=== PATIENT | male | born 1965 | race American Indian/Alaskan Native ===

== ENCOUNTER 2018-05-09 16:47 | Inpatient (IN) | payer MEDICAID ==
[2018-05-09] MEDS ORDERED: Albuterol-Ipratrop 3 mg / 0.5 (3 ml) UD IH STA (17:10)
[2018-05-09 17:18] LABS: ARTERIAL BLOOD GAS HCO3 27.3 mmol/L (21-28); ARTERIAL BLOOD GAS HEMOGLOBIN 9.1 g/dL (11.7-17.4); ARTERIAL BLOOD GAS O2 CAPACITY 13.4 mL/dl (16-24); ARTERIAL BLOOD GAS O2 CONTENT 13.4 ML/dl (15-23); ARTERIAL BLOOD GAS O2 SAT 99.9 % (95-98); ARTERIAL BLOOD GAS PCO2 84 mm/Hg (35-45); ARTERIAL BLOOD GAS TCO2 29.9 mmol.L (22-28)
[2018-05-09 17:21] LABS: VENOUS BLOOD GAS BASE EXCESS -3.1 mmol/L (0.0-2.0); VENOUS BLOOD GAS PO2 135 mm/Hg (30-55)
[2018-05-09 17:22] LABS: ARTERIAL BLOOD GAS PH 7.12 (7.35-7.45)
[2018-05-09 17:24] LABS: VENOUS BLOOD PH 7.12 (7.32-7.43)
[2018-05-09 17:35] LABS: BASO # 0.02 K/mm3 (0.0-2.0); BASO % 0.3 % (0.0-3.0); EOS % 0.1 % (1.5-5.0); GRAN # 3.7 (1.4-6.5); GRAN % 51.2 % (50.0-68.0); HEMOGLOBIN 9.6 g/dL (14.0-18.0); LYMPH # 2.7 (1.2-3.4); MEAN CELL VOLUME 72.5 fl (80.0-105.0); MEAN CORPUSCULAR HGB CONC 27.6 g/dl (31.0-37.0); MEAN PLATELET VOLUME 9.2 fl (7.0-11.0); MONO # 0.8 (0.1-0.6); MONO % 11.4 % (1.0-6.0); RBC 4.8 10^6/uL (3.5-6.1); RED CELL DISTRIBUTION WIDTH 22.3 % (11.5-14.5); WHITE BLOOD COUNT 7.2 10^3/ul (4.5-11.0)
[2018-05-09 17:37] LABS: INR 1.85; PARTIAL THROMBOPLASTIN TIME 30.9 Seconds (25.1-36.5); PROTHROMBIN TIME 21.4 SECONDS (9.4-12.5)
[2018-05-09 18:09] LABS: B-TYPE NATRIURETIC PEPTIDE 2220 pg/mL (0-450); TROPONIN I < 0.01 ng/mL
--- NOTE | 2018-05-09 18:11 | ED PDOC ---
Arrival/HPI - General Chief Complaint: Shortness Of Breath Time Seen by Provider: 05/09/18 16:59 - History of Present Illness Narrative History of Present Illness (Text): 05/09/18 17:03 A 52 year old male whose past medical history includes , presents to the emergency department via ALS with acute shortness of breath on CPAP and complaining of shortness of breath since yesterday. Patients reports patient has been noncompliant with medication and is not currently experiencing pain. Patient reports no recent travel and denies any pain. Patient denies any fever, chills, chest pain, nausea, vomiting, diarrhea, back pain, neck pain, headache, dizziness, or any other complaints. Time/Duration: 24 hours Symptom Onset: Gradual Activities at Onset: Light Context: Home Past Medical History - Provider Review Nursing Documentation Reviewed: Yes - Cardiac Hx Cardiac Disorders: Yes Hx Congestive Heart Failure: Yes - Pulmonary Hx Respiratory Disorders: Yes - Psychiatric Hx Substance Use: No - Surgical History Other/Comment: ABDOMINAL SURGERY Family/Social History - Physician Review Nursing Documentation Reviewed: Yes Family/Social History: Unknown Family HX Smoking Status: Unknown If Ever Smoked Hx Alcohol Use: No Hx Substance Use: No Allergies/Home Meds Allergies/Adverse Reactions: Allergies Unobtainable Allergy (Verified 05/09/18 16:59) Home Medications: Home Meds Medication Instructions Recorded Confirmed Albuterol Sulfate [Ventolin Hfa] 2 puff PO DAILY 05/09/18 05/09/18 Apixaban [Eliquis] 5 mg PO BID 05/09/18 05/09/18 Atorvastatin [Lipitor] 20 mg PO DAILY 05/09/18 05/09/18 Carvedilol [Coreg] 12.5 mg PO BID 05/09/18 05/09/18 Cyclobenzaprine [Flexeril] 5 mg PO BID PRN 05/09/18 05/09/18 Fluticasone Propionate [Flovent 2 puff PO PRN PRN 05/09/18 05/09/18 Hfa] Furosemide [Lasix] 40 mg PO TID 05/09/18 05/09/18 Lamivudine/Zidovudine [Combivir 1 tab PO BID 05/09/18 05/09/18 Tablet] Lisinopril [Zestril] 2.5 mg PO DAILY 05/09/18 05/09/18 Metformin HCl [Glucophage] 500 mg PO BID 05/09/18 05/09/18 Pantoprazole Sodium [Protonix] 40 mg PO HS 05/09/18 05/09/18 Spironolactone [Aldactone] 25 mg PO DAILY 05/09/18 05/09/18 diltiaZEM [Cardizem] 30 mg PO QID 05/09/18 05/09/18 Review of Systems - Physician Review All systems were reviewed & negative as marked: Yes - Review of Systems Constitutional: absent: Fevers, Night Sweats Respiratory: SOB Cardiovascular: absent: Chest Pain Gastrointestinal: absent: Diarrhea, Nausea, Vomiting Musculoskeletal: absent: Back Pain, Neck Pain Neurological: absent: Headache, Dizziness Physical Exam Vital Signs Reviewed: Yes Vital Signs Temp Pulse Resp BP Pulse Ox 05/09/18 20:00 77 16 141/66 100 05/09/18 18:31 86 18 110/59 L 100 05/09/18 16:51 111/69 05/09/18 16:50 24 05/09/18 16:47 98.1 F 86 24 111/69 100 Temperature: Afebrile Blood Pressure: Normal Pulse: Regular Respiratory Rate: Normal Appearance: Positive for: Well-Appearing, Non-Toxic, Comfortable Pain Distress: None Mental Status: Positive for: Alert and Oriented X 3 - Systems Exam Head: Present: Atraumatic, Normocephalic, Swelling (face is swollen). No: Tenderness, Contusion, Ecchymosis, Abrasion, Laceration, Other Pupils: Present: PERRL Extroacular Muscles: Present: EOMI Conjunctiva: Present: Normal Mouth: Present: Moist Mucous Membranes Neck: Present: Normal Range of Motion Respiratory/Chest: Present: Wheezes (fine expiratory wheezing ), Rales. No: Clear to Auscultation, Good Air Exchange, Respiratory Distress, Accessory Muscle Use, Decreased Breath Sounds, Retracting, Rhonchi, Tachypneic, Tender to Palpation Cardiovascular: Present: Regular Rate and Rhythm, Normal S1, S2. No: Murmurs Abdomen: Present: Other (soft abdomen. +bowel sounds, +pitting edema to abd). No: Tenderness, Distention, Normal Bowel Sounds, Peritoneal Signs, Rebound, Guarding, McBurney's Point Tender, Rovsing's Sign Present, Hernias, Feeding Tubes, Ostomy Tubes, Mass/Organomegaly, Scars Back: Present: Normal Inspection Upper Extremity: Present: Normal Inspection. No: Cyanosis, Edema Lower Extremity: Present: Normal Inspection. No: Edema Neurological: Present: GCS=15, CN II-XII Intact, Speech Normal Skin: Present: Warm, Dry, Normal Color. No: Rashes Psychiatric: Present: Alert, Oriented x 3, Normal Insight, Normal Concentration Medical Decision Making ED Course and Treatment: 05/09/18 17:20 Impression: 52 year old male presenting to the emergency room complaining of shortness of breath. Plan: -- Venous blood gas -- EKG -- Labs -- Chest X-ray -- Duoneb -- Lasix -- Solu-medrol -- Blood culture stat -- Urine culture stat -- BIPAP/CPAP setting -- Urinalysis -- Reassess and disposition Prior Visits: Notes and results from previous visits were reviewed. Progress Notes: 05/09/18 17:40 EKG reviewed by me, shows NSR at 87 bpm with left axis deviation and left atrial enlargement. 05/09/18 18:00 Cased discussed with Strategic Planning Specialist who agrees with ED management plan to admit patient to ICU, place on BIPAP. Upon reassessment, patient's condition is slowly improving. - Lab Interpretations Lab Results: 05/09/18 17:00 05/09/18 19:39 Lab Results 05/09/18 19:39: Iron 10 L, TIBC 171 L, % Saturation 6 L 05/09/18 19:39: Alcohol, Quantitative < 10 05/09/18 19:39: Sodium 144, Chloride 108 H, Potassium 4.7, Carbon Dioxide 25, Anion Gap 15, BUN 18, Creatinine 0.7 L, Est GFR ( Amer) > 60, Est GFR ( Non-Af Amer) > 60, Random Glucose 125 H, Calcium 8.8, Magnesium 1.7, Total Bilirubin 1.0, AST 36, ALT 16, Alkaline Phosphatase 305 H, Lactate Dehydrogenase 558, Total Creatine Kinase 89, Troponin I < 0.01, NT-Pro-B Natriuret Pep 2220 H, Total Protein 7.2, Albumin 3.3, Globulin 3.9, Albumin/ Globulin Ratio 0.8 L 05/09/18 19:37: pO2 153 H, VBG pH 7.27 L, VBG pCO2 57.0, VBG HCO3 26.2, VBG Total CO2 27.9, VBG O2 Sat (Calc) 99.3 H, VBG Base Excess -1.7 L, VBG Potassium 4.8, Sodium 141.0, Chloride 109.0 H, Glucose 126 H, Lactate 1.7, FiO2 21.0, Venous Blood Potassium 4.8 05/09/18 18:36: pCO2 59 H, pO2 129.0 H, HCO3 24.7, ABG pH 7.23 L, ABG Total CO2 26.5, ABG O2 Saturation 99.1 H, ABG O2 Content 12.2 L, ABG Base Excess -3.1 L, ABG Hemoglobin 8.9 L, ABG Carboxyhemoglobin 3.2 H, POC ABG HHb (Measured) 0.9, ABG Methemoglobin 0.6, ABG O2 Capacity 12.3 L, Hgb O2 Saturation 95.3, FiO2 50.0 05/09/18 17:00: Retic Count 2.30 H 05/09/18 17:00: pCO2 84 H*, pO2 385.0 H, HCO3 27.3, ABG pH 7.12 L*, ABG Total CO2 29.9 H, ABG O2 Saturation 99.9 H, ABG O2 Content 13.4 L, ABG Base Excess - 2.9 L, ABG Hemoglobin 9.1 L, ABG Carboxyhemoglobin 3.4 H, POC ABG HHb (Measured ) 0.1, ABG Methemoglobin 0.2, ABG O2 Capacity 13.4 L, Hgb O2 Saturation 96.3, FiO2 100.0 05/09/18 17:00: pO2 135 H, VBG pH 7.12 L*, VBG pCO2 88.0 H*, VBG HCO3 28.6 H, VBG Total CO2 31.3 H, VBG O2 Sat (Calc) 99.0 H, VBG Base Excess -3.1 L, VBG Potassium 4.8, Sodium 141.0, Chloride 107.0, Glucose 123 H, Lactate 2.0, FiO2 21.0, Venous Blood Potassium 4.8 05/09/18 17:00: PT 21.4 H, INR 1.85, APTT 30.9 05/09/18 17:00: WBC 7.2, RBC 4.80, Hgb 9.6 L, Hct 34.8 L, MCV 72.5 L, MCH 20.0 L , MCHC 27.6 L, RDW 22.3 H, Plt Count 352, MPV 9.2, Gran % 51.2, Lymph % (Auto) 37.0 H, [place] % (Auto) 11.4 H, Eos % (Auto) 0.1 L, Baso % (Auto) 0.3, Gran # 3.70 , Lymph # (Auto) 2.7, [place] # (Auto) 0.8 H, Eos # (Auto) 0.0, Baso # (Auto) 0.02 - RAD Interpretation Radiology Orders: 05/09/18 17:11 CHEST PORTABLE [RAD] Stat - Medication Orders Current Medication Orders: Albuterol/Ipratropium (Duoneb 3 Mg/0.5 Mg (3 Ml) Ud) 3 ml IH [id number] TRAVIS Dextrose (Dextrose 50% Inj) 0 ml IV STAT PRN; Protocol PRN Reason: Hypoglycemia Protocol Furosemide (Lasix) 60 mg IVP Q12 TRAVIS Dextrose (Dextrose 5% In Water 1000 Ml) 1,000 mls @ 0 mls/hr IV .Q0M PRN; Protocol; Per Protocol PRN Reason: Hypoglycemia Protocol Insulin Human Regular (Humulin R) 0 units SC Q6H TRAVIS PRN Reason: Protocol Last Admin: 05/09/18 21:29 Dose: Not Given Non-Admin Reason: Blood Sugar Parameter Discontinued Medications Albuterol/Ipratropium (Duoneb 3 Mg/0.5 Mg (3 Ml) Ud) 3 ml IH STAT STA Stop: 05/09/18 17:11 Last Admin: 05/09/18 18:08 Dose: 3 ml Furosemide (Lasix) 60 mg IVP STAT STA Stop: 05/09/18 17:11 Last Admin: 05/09/18 16:51 Dose: 60 mg MAR Blood Pressure Document 05/09/18 16:51 LA (Rec: 05/09/18 18:17 LA [id number]) Blood Pressure Blood Pressure (100/60-150/90) 111/69 IVP Administration Document 05/09/18 16:51 LA (Rec: 05/09/18 18:17 LA [id number]) Charges for Administration # of IVP Administrations 1 Furosemide (Lasix) 60 mg IVP Q12 TRAVIS Furosemide (Lasix) 40 mg IVP STAT STA Stop: 05/09/18 22:26 Methylprednisolone (Solu-Medrol) 125 mg IVP STAT STA Stop: 05/09/18 17:11 Last Admin: 05/09/18 18:08 Dose: 125 mg IVP Administration Document 05/09/18 18:08 LA (Rec: 05/09/18 18:08 LA [id number]) Charges for Administration # of IVP Administrations 1 - Scribe Statement The provider has reviewed the documentation as recorded by the Ángelaibarianne Schulte All medical record entries made by the Ángelaibe were at my direction and personally dictated by me. I have reviewed the chart and agree that the record accurately reflects my personal performance of the history, physical exam, medical decision making, and the department course for this patient. I have also personally directed, reviewed, and agree with the discharge instructions and disposition. Disposition/Present on Arrival - Present on Arrival Any Indicators Present on Arrival: No History of DVT/PE: No History of Uncontrolled Diabetes: No Urinary Catheter: No History of Decub. Ulcer: No History Surgical Site Infection Following: None - Disposition Have Diagnosis and Disposition been Completed?: Yes Diagnosis: CHF exacerbation, Respiratory failure Disposition: HOSPITALIZED Disposition Time: 17:45 Patient Plan: ICU Condition: CRITICAL
[2018-05-09 18:38] LABS: ARTERIAL BLOOD GAS HCO3 24.7 mmol/L (21-28); ARTERIAL BLOOD GAS HEMOGLOBIN 8.9 g/dL (11.7-17.4); ARTERIAL BLOOD GAS O2 CAPACITY 12.3 mL/dl (16-24); ARTERIAL BLOOD GAS O2 CONTENT 12.2 ML/dl (15-23); ARTERIAL BLOOD GAS O2 SAT 99.1 % (95-98); ARTERIAL BLOOD GAS PCO2 59 mm/Hg (35-45); ARTERIAL BLOOD GAS PH 7.23 (7.35-7.45); ARTERIAL BLOOD GAS TCO2 26.5 mmol.L (22-28)
--- NOTE | 2018-05-09 19:36 | CARD ---
APPROVED REPORT Date of service: 05/09/2018 EKG Measurement Heart [id number] <Conclusion> Sinus rhythm with occasional APCs and PVCs RBBB Low Voltage Possible Lateral infarct, age undetermined Inferior-posterior infarct, age undetermined Abnormal ECG
[2018-05-09 20:02] LABS: VENOUS BLOOD GAS BASE EXCESS -1.7 mmol/L (0.0-2.0); VENOUS BLOOD GAS PO2 153 mm/Hg (30-55); VENOUS BLOOD PH 7.27 (7.32-7.43)
[2018-05-09] MEDS ORDERED: Dextrose 50% SYRINGE Inj (50 ml) IV PRN (20:21)
[2018-05-09 20:46] LABS: ALB/GLOB RATIO 0.8 (1.1-1.8); ALBUMIN 3.3 g/dL (3.0-4.8); ALT/SGPT 16 U/L (7-56); AST/SGOT 36 U/L (17-59); BLOOD UREA NITROGEN 18 mg/dL (7-21); CALCIUM 8.8 mg/dL (8.4-10.5); GFR NON-AFRICAN AMERICAN > 60
[2018-05-09 20:55] LABS: ARTERIAL BLOOD GAS HCO3 24.9 mmol/L (21-28); ARTERIAL BLOOD GAS HEMOGLOBIN 8.8 g/dL (11.7-17.4); ARTERIAL BLOOD GAS O2 CAPACITY 12.3 mL/dl (16-24); ARTERIAL BLOOD GAS O2 CONTENT 12.2 ML/dl (15-23); ARTERIAL BLOOD GAS O2 SAT 99.5 % (95-98); ARTERIAL BLOOD GAS PCO2 58 mm/Hg (35-45); ARTERIAL BLOOD GAS PH 7.24 (7.35-7.45); ARTERIAL BLOOD GAS TCO2 26.7 mmol.L (22-28)
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
[2018-05-09] MEDS: Insulin Regular 1 UNITS/0.01 ML ML SC SCH (21:29)
[2018-05-09 22:26] LABS: TOTAL IRON BINDING CAPACITY 171 ug/dL (261-462)
[2018-05-09 22:31] LABS: IRON 10 ug/dL (45-180)
[2018-05-09 22:32] LABS: % IRON SATURATION 6 % (20-55)
[2018-05-10] MEDS: Albuterol-Ipratrop 3 mg / 0.5 (3 ml) UD IH SCH ×4 (01:30→19:46)
[2018-05-10] MEDS: Insulin Regular 1 UNITS/0.01 ML ML SC SCH ×4 (02:43→20:40)
[2018-05-10 05:49] LABS: ARTERIAL BLOOD GAS HCO3 25.6 mmol/L (21-28); ARTERIAL BLOOD GAS HEMOGLOBIN 9.1 g/dL (11.7-17.4); ARTERIAL BLOOD GAS O2 CAPACITY 12.7 mL/dl (16-24); ARTERIAL BLOOD GAS O2 CONTENT 12.6 ML/dl (15-23); ARTERIAL BLOOD GAS PCO2 57 mm/Hg (35-45); ARTERIAL BLOOD GAS PH 7.26 (7.35-7.45); ARTERIAL BLOOD GAS TCO2 27.3 mmol.L (22-28)
[2018-05-10 07:14] LABS: HEMOGLOBIN 8.8 g/dL (14.0-18.0); MEAN CELL VOLUME 73.4 fl (80.0-105.0); MEAN CORPUSCULAR HEMOGLOBIN 19.5 pg (25.0-35.0); MEAN CORPUSCULAR HGB CONC 26.6 g/dl (31.0-37.0); MEAN PLATELET VOLUME 9.4 fl (7.0-11.0); RBC 4.51 10^6/uL (3.5-6.1); WHITE BLOOD COUNT 11.6 10^3/ul (4.5-11.0)
[2018-05-10 07:34] LABS: LDL CHOLESTEROL 44 mg/dL (0-129)
[2018-05-10 07:44] LABS: ALB/GLOB RATIO 0.8 (1.1-1.8); ALBUMIN 3.1 g/dL (3.0-4.8); ALT/SGPT 26 U/L (7-56); AST/SGOT 33 U/L (17-59); BLOOD UREA NITROGEN 21 mg/dL (7-21); CALCIUM 8.7 mg/dL (8.4-10.5); GFR NON-AFRICAN AMERICAN > 60; HDL CHOLESTEROL 24 mg/dL (29-60)
--- NOTE | 2018-05-10 08:33 | RAD ---
Date of service: 05/10/2018 HISTORY: CHF exacerbation COMPARISON: 05/09/2018. FINDINGS: LUNGS: There are low lung volumes. There is worsening pulmonary venous congestion. PLEURA: No significant pleural effusion identified, no pneumothorax apparent. CARDIOVASCULAR: There is persistent severe cardiomegaly OSSEOUS STRUCTURES: No significant abnormalities. VISUALIZED UPPER ABDOMEN: Normal. OTHER FINDINGS: None. IMPRESSION: Limited portable examination. Worsening pulmonary venous congestion. Persistent severe cardiomegaly.
--- NOTE | 2018-05-10 08:37 | RAD ---
Date of service: 05/09/2018 HISTORY: CHF COMPARISON: No prior. FINDINGS: LUNGS: There are low lung volumes. Limited portable examination, there is question of right lower lobe airspace disease. PLEURA: Suspect small right pleural effusion, no pneumothorax apparent. CARDIOVASCULAR: Moderate cardiomegaly. OSSEOUS STRUCTURES: No significant abnormalities. VISUALIZED UPPER ABDOMEN: Normal. OTHER FINDINGS: None. IMPRESSION: Limited portable examination. Question of right lower lobe airspace disease and small right pleural effusion. Repeat PA and lateral radiographs are recommended for definitive evaluation.
--- NOTE | 2018-05-10 09:40 | CP.CCUPN ---
<Rc Wong - Last Filed: 05/10/18 09:36> CCU Subjective - Physician Review Events Since Last Encounter (Free Text): Rc Wong, PGY-1 ICU Progress Note Patient seen and examined at bedside this morning. No acute events overnight. Taken off bipap this AM, tolerating well. Arousable but drowsy. Started steriods. Will transfer to tele. Patient admits to SOB, denies CP, abdominal pain, headaches, fevers, swelling. ROS noted here, otherwise unremarkable. CCU Objective - Vital Signs / Intake & Output Vital Signs (Last 4 hours): Vital Signs Pulse BP 05/10/18 09:02 109/63 05/10/18 07:34 90 05/10/18 06:00 90 Intake and Output (Last 8hrs): Intake & Output 05/09/18 05/10/18 05/10/18 22:59 06:59 14:59 Output Total 1700 Balance -1700 Weight 318 lb 9.6 oz Output: Urine 1700 Urethral (Lugo) 1700 Other: Voiding Method Indwelling Catheter - Physical Exam Head: Positive for: Atraumatic, Normocephalic Pupils: Positive for: PERRL Extroacular Muscles: Positive for: EOMI Conjunctiva: Positive for: Normal Mouth: Positive for: Moist Mucous Membranes Neck: Positive for: Normal Range of Motion Respiratory/Chest: Positive for: Wheezes (diffuse wheezing present in upper and llower B/L lung cano). Negative for: Clear to Auscultation, Respiratory Distress Cardiovascular: Positive for: Regular Rate and Rhythm, Normal S1, S2. Negative for: Murmurs Abdomen: Positive for: Other (abdomen is firm, bowel sounds present in all 4 quadrants. Anasarca present with pelvic/scrotal swelling). Negative for: Peritoneal Signs, Rebound, Guarding Back: Positive for: Normal Inspection Upper Extremity: Positive for: NORMAL PULSES, Other (skin is dry). Negative for : Cyanosis Lower Extremity: Positive for: Other (skin is dry and scaly). Negative for: Edema Neurological: Positive for: Other (arousable but drowsy) Skin: Positive for: Dry. Negative for: Rashes Psychiatric: Positive for: Lethargic - Medications Active Medications: Active Medications Generic Name Dose Route Start Last Admin Trade Name Freq PRN Reason Stop Dose Admin Albuterol/Ipratropium 3 ml 05/10/18 02:00 05/10/18 07:30 Duoneb 3 Mg/0.5 Mg (3 Ml) Ud IH 3 ml [id number] TRAVIS Administration Aspirin 81 mg 05/10/18 10:00 05/10/18 09:02 Aspirin Chewable PO 81 mg DAILY TRAVIS Administration Dextrose 0 ml 05/09/18 20:21 Dextrose 50% Inj IV STAT PRN Hypoglycemia Protocol Protocol Furosemide 60 mg 05/10/18 10:00 05/10/18 09:02 Lasix IVP 60 mg Q12 TRAVIS Administration Heparin Sodium (Porcine) 5,000 units 05/10/18 10:00 Heparin SC Q12 TRAVIS Protocol Insulin Human Regular 0 units 05/09/18 20:30 05/10/18 08:20 Humulin R SC Not Given Q6H TRAVIS Protocol Methylprednisolone 60 mg 05/10/18 10:00 05/10/18 09:00 Solu-Medrol IVP Not Given Q12 TRAVIS Pantoprazole Sodium 40 mg 05/10/18 10:00 Protonix Inj IVP DAILY TRAVIS - Patient Studies Lab Studies: Lab Studies 05/10/18 05/10/18 05/10/18 Range/Units 08:00 06:00 06:00 WBC 11.6 H D (4.5-11.0) 10^3/ul RBC 4.51 (3.5-6.1) 10^6/uL Hgb 8.8 L (14.0-18.0) g/dL Hct 33.1 L (42.0-52.0) % MCV 73.4 L (80.0-105.0) fl MCH 19.5 L (25.0-35.0) pg MCHC 26.6 L (31.0-37.0) g/dl RDW 22.0 H (11.5-14.5) % Plt Count 324 (120.0-450.0) 10^3/uL MPV 9.4 (7.0-11.0) fl pCO2 (35-45) mm/Hg pO2 (80-100) mm/Hg HCO3 (21-28) mmol/L ABG pH (7.35-7.45) ABG Total CO2 (22-28) mmol.L ABG O2 Saturation (95-98) % ABG O2 Content (15-23) ML/dl ABG Base Excess (-2.0-3.0) mmol/L ABG Hemoglobin (11.7-17.4) g/dL ABG Carboxyhemoglobin (0.5-1.5) % POC ABG HHb (Measured) (0-5) % ABG Methemoglobin (0.0-3.0) % ABG O2 Capacity (16-24) mL/dl Hgb O2 Saturation (95.0-98.0) % FiO2 % Sodium 145 (132-148) mmol/L Potassium 4.5 (3.6-5.0) mmol/L Chloride 107 (98-107) mmol/L Carbon Dioxide 26 (21-33) mmol/L Anion Gap 16 (10-20) BUN 21 (7-21) mg/dL Creatinine 0.7 L (0.8-1.5) mg/dl Est GFR ( Amer) > 60 Est GFR (Non-Af Amer) > 60 POC Glucose (mg/dL) 139 H (65-110) mg/dL Random Glucose 124 H (70-110) mg/dL Calcium 8.7 (8.4-10.5) mg/dL Phosphorus 5.5 H (2.5-4.5) mg/dL Magnesium 1.7 (1.7-2.2) mg/dL Total Bilirubin 0.8 (0.2-1.3) mg/dL AST 33 (17-59) U/L ALT 26 (7-56) U/L Alkaline Phosphatase 265 H (38-126) U/L Total Protein 6.8 (5.8-8.3) g/dL Albumin 3.1 (3.0-4.8) g/dL Globulin 3.7 gm/dL Albumin/Globulin Ratio 0.8 L (1.1-1.8) Triglycerides 66 (35-160) mg/dL Cholesterol 86 L (130-200) mg/dL LDL Cholesterol Direct 44 (0-129) mg/dL HDL Cholesterol 24 L (29-60) mg/dL 05/10/18 05/10/18 05/09/18 Range/Units 05:40 02:41 21:17 WBC (4.5-11.0) 10^3/ul RBC (3.5-6.1) 10^6/uL Hgb (14.0-18.0) g/dL Hct (42.0-52.0) % MCV (80.0-105.0) fl MCH (25.0-35.0) pg MCHC (31.0-37.0) g/dl RDW (11.5-14.5) % Plt Count (120.0-450.0) 10^3/uL MPV (7.0-11.0) fl pCO2 57 H (35-45) mm/Hg pO2 115.0 H (80-100) mm/Hg HCO3 25.6 (21-28) mmol/L ABG pH 7.26 L (7.35-7.45) ABG Total CO2 27.3 (22-28) mmol.L ABG O2 Saturation 99.0 H (95-98) % ABG O2 Content 12.6 L (15-23) ML/dl ABG Base Excess -1.8 (-2.0-3.0) mmol/L ABG Hemoglobin 9.1 L (11.7-17.4) g/dL ABG Carboxyhemoglobin 2.0 H (0.5-1.5) % POC ABG HHb (Measured) 1.0 (0-5) % ABG Methemoglobin 0.6 (0.0-3.0) % ABG O2 Capacity 12.7 L (16-24) mL/dl Hgb O2 Saturation 96.4 (95.0-98.0) % FiO2 50.0 % Sodium (132-148) mmol/L Potassium (3.6-5.0) mmol/L Chloride (98-107) mmol/L Carbon Dioxide (21-33) mmol/L Anion Gap (10-20) BUN (7-21) mg/dL Creatinine (0.8-1.5) mg/dl Est GFR ( Amer) Est GFR (Non-Af Amer) POC Glucose (mg/dL) 166 H 130 H (65-110) mg/dL Random Glucose (70-110) mg/dL Calcium (8.4-10.5) mg/dL Phosphorus (2.5-4.5) mg/dL Magnesium (1.7-2.2) mg/dL Total Bilirubin (0.2-1.3) mg/dL AST (17-59) U/L ALT (7-56) U/L Alkaline Phosphatase (38-126) U/L Total Protein (5.8-8.3) g/dL Albumin (3.0-4.8) g/dL Globulin gm/dL Albumin/Globulin Ratio (1.1-1.8) Triglycerides (35-160) mg/dL Cholesterol (130-200) mg/dL LDL Cholesterol Direct (0-129) mg/dL HDL Cholesterol (29-60) mg/dL 05/09/18 Range/Units 20:52 WBC (4.5-11.0) 10^3/ul RBC (3.5-6.1) 10^6/uL Hgb (14.0-18.0) g/dL Hct (42.0-52.0) % MCV (80.0-105.0) fl MCH (25.0-35.0) pg MCHC (31.0-37.0) g/dl RDW (11.5-14.5) % Plt Count (120.0-450.0) 10^3/uL MPV (7.0-11.0) fl pCO2 58 H (35-45) mm/Hg pO2 137.0 H (80-100) mm/Hg HCO3 24.9 (21-28) mmol/L ABG pH 7.24 L (7.35-7.45) ABG Total CO2 26.7 (22-28) mmol.L ABG O2 Saturation 99.5 H (95-98) % ABG O2 Content 12.2 L (15-23) ML/dl ABG Base Excess -2.8 L (-2.0-3.0) mmol/L ABG Hemoglobin 8.8 L (11.7-17.4) g/dL ABG Carboxyhemoglobin 2.8 H (0.5-1.5) % POC ABG HHb (Measured) 0.5 (0-5) % ABG Methemoglobin 0.6 (0.0-3.0) % ABG O2 Capacity 12.3 L (16-24) mL/dl Hgb O2 Saturation 96.2 (95.0-98.0) % FiO2 50.0 % Sodium (132-148) mmol/L Potassium (3.6-5.0) mmol/L Chloride (98-107) mmol/L Carbon Dioxide (21-33) mmol/L Anion Gap (10-20) BUN (7-21) mg/dL Creatinine (0.8-1.5) mg/dl Est GFR ( Amer) Est GFR (Non-Af Amer) POC Glucose (mg/dL) (65-110) mg/dL Random Glucose (70-110) mg/dL Calcium (8.4-10.5) mg/dL Phosphorus (2.5-4.5) mg/dL Magnesium (1.7-2.2) mg/dL Total Bilirubin (0.2-1.3) mg/dL AST (17-59) U/L ALT (7-56) U/L Alkaline Phosphatase (38-126) U/L Total Protein (5.8-8.3) g/dL Albumin (3.0-4.8) g/dL Globulin gm/dL Albumin/Globulin Ratio (1.1-1.8) Triglycerides (35-160) mg/dL Cholesterol (130-200) mg/dL LDL Cholesterol Direct (0-129) mg/dL HDL Cholesterol (29-60) mg/dL Laboratory Results - last 24 hr 05/09/18 05/09/18 05/10/18 20:52 21:17 02:41 WBC RBC Hgb Hct MCV MCH MCHC RDW Plt Count MPV pCO2 58 H pO2 137.0 H HCO3 24.9 ABG pH 7.24 L ABG Total CO2 26.7 ABG O2 Saturation 99.5 H ABG O2 Content 12.2 L ABG Base Excess -2.8 L ABG Hemoglobin 8.8 L ABG Carboxyhemoglobin 2.8 H POC ABG HHb (Measured) 0.5 ABG Methemoglobin 0.6 ABG O2 Capacity 12.3 L Hgb O2 Saturation 96.2 FiO2 50.0 Sodium Potassium Chloride Carbon Dioxide Anion Gap BUN Creatinine Est GFR ( Amer) Est GFR (Non-Af Amer) POC Glucose (mg/dL) 130 H 166 H Random Glucose Calcium Phosphorus Magnesium Total Bilirubin AST ALT Alkaline Phosphatase Total Protein Albumin Globulin Albumin/Globulin Ratio Triglycerides Cholesterol LDL Cholesterol Direct HDL Cholesterol 05/10/18 05/10/18 05/10/18 05:40 06:00 06:00 WBC 11.6 H D RBC 4.51 Hgb 8.8 L Hct 33.1 L MCV 73.4 L MCH 19.5 L MCHC 26.6 L RDW 22.0 H Plt Count 324 MPV 9.4 pCO2 57 H pO2 115.0 H HCO3 25.6 ABG pH 7.26 L ABG Total CO2 27.3 ABG O2 Saturation 99.0 H ABG O2 Content 12.6 L ABG Base Excess -1.8 ABG Hemoglobin 9.1 L ABG Carboxyhemoglobin 2.0 H POC ABG HHb (Measured) 1.0 ABG Methemoglobin 0.6 ABG O2 Capacity 12.7 L Hgb O2 Saturation 96.4 FiO2 50.0 Sodium 145 Potassium 4.5 Chloride 107 Carbon Dioxide 26 Anion Gap 16 BUN 21 Creatinine 0.7 L Est GFR ( Amer) > 60 Est GFR (Non-Af Amer) > 60 POC Glucose (mg/dL) Random Glucose 124 H Calcium 8.7 Phosphorus 5.5 H Magnesium 1.7 Total Bilirubin 0.8 AST 33 ALT 26 Alkaline Phosphatase 265 H Total Protein 6.8 Albumin 3.1 Globulin 3.7 Albumin/Globulin Ratio 0.8 L Triglycerides 66 Cholesterol 86 L LDL Cholesterol Direct 44 HDL Cholesterol 24 L 05/10/18 08:00 WBC RBC Hgb Hct MCV MCH MCHC RDW Plt Count MPV pCO2 pO2 HCO3 ABG pH ABG Total CO2 ABG O2 Saturation ABG O2 Content ABG Base Excess ABG Hemoglobin ABG Carboxyhemoglobin POC ABG HHb (Measured) ABG Methemoglobin ABG O2 Capacity Hgb O2 Saturation FiO2 Sodium Potassium Chloride Carbon Dioxide Anion Gap BUN Creatinine Est GFR ( Amer) Est GFR (Non-Af Amer) POC Glucose (mg/dL) 139 H Random Glucose Calcium Phosphorus Magnesium Total Bilirubin AST ALT Alkaline Phosphatase Total Protein Albumin Globulin Albumin/Globulin Ratio Triglycerides Cholesterol LDL Cholesterol Direct HDL Cholesterol EKG/Cardiology Studies: Cardiology / EKG Studies 05/10/18 07:00 EKG [ELECTROCARDIOGRAM] Routine Comment: Reason For Exam: arrythmia? Fingerstick Blood Sugar Results: 139 Critical Care Progress Note - Nutrition Nutrition: Nutrition Category Date Time Status Heart Healthy Diet [DIET] Diets 05/10/18 Breakfast Active Assessment/Plan - Assessment and Plan (Free Text) Assessment: This is a 52 year old male with PMH of COPD, DM2, CHF with last EF in 12/2017 of 30%, CAD with stents and HIV presenting to ICU for management of COPD exacerbation. ABG shows CO2 retention indicating likely COPD vs CHF exacerbation. Will transfer to tele today. Plan: Neuro: -maintain normothermia -AAO x3, moving extremities spontaneously past midline Cardio: -maintain MAP>65 -echo pending today -Cardio on consult, Dr. Syed Lungs: -SaO2 >90% -supplementary O2 PRN -duonebs, solumedrol 60mg IV q12 -CXR today shows persistent severe cardiomegaly. Worsening pulmonary venous congestion Renal: -maintain euvolemia -avoid nephrotoxic agents, hypochloremia -replace electrolytes as needed -ABG today reads pH/pO2/pCO2/bicarb of 7.26/115/57/25.6 indicating improving respiratory acidosis from admission ABG of pH/CO2/bicarb of 7.12/84/27.3 Heme: -DVT ppx with heparin Endo: -maintain euglycemia ID: -WBC is today is 11.6, afebrile. No concern for infectious etiology at this time -blood culture, urine culture, MRSA screen pending -ID on consult, Dr Sahu, for HIV status -GI: -GI prophylaxis with protonix <Dago Eduardo - Last Filed: 05/10/18 12:17> CCU Objective - Vital Signs / Intake & Output Vital Signs (Last 4 hours): Vital Signs Pulse Resp BP Pulse Ox 05/10/18 11:00 93 H 17 93 L 05/10/18 10:01 96 H 21 109/70 96 05/10/18 10:00 97 H 21 96 05/10/18 09:02 109/63 05/10/18 09:01 95 H 23 117/66 93 L 05/10/18 09:00 95 H 20 95 Intake and Output (Last 8hrs): Intake & Output 05/09/18 05/10/18 05/10/18 22:59 06:59 14:59 Output Total 1700 Balance -1700 Weight 318 lb 9.6 oz Output: Urine 1700 Urethral (Lugo) 1700 Other: Voiding Method Indwelling Catheter - Medications Active Medications: Active Medications Generic Name Dose Route Start Last Admin Trade Name Freq PRN Reason Stop Dose Admin Albuterol/Ipratropium 3 ml 05/10/18 02:00 05/10/18 07:30 Duoneb 3 Mg/0.5 Mg (3 Ml) Ud IH 3 ml [id number] TRAVIS Administration Aspirin 81 mg 05/10/18 10:00 05/10/18 09:02 Aspirin Chewable PO 81 mg DAILY TRAVIS Administration Dextrose 0 ml 05/09/18 20:21 Dextrose 50% Inj IV STAT PRN Hypoglycemia Protocol Protocol Furosemide 60 mg 05/10/18 10:00 05/10/18 09:02 Lasix IVP 60 mg Q12 TRAVIS Administration Heparin Sodium (Porcine) 5,000 units 05/10/18 10:00 Heparin SC Q12 TRAVIS Protocol Insulin Human Regular 0 units 05/09/18 20:30 05/10/18 08:20 Humulin R SC Not Given Q6H TRAVIS Protocol Methylprednisolone 60 mg 05/10/18 10:00 05/10/18 09:00 Solu-Medrol IVP Not Given Q12 TRAVIS Pantoprazole Sodium 40 mg 05/10/18 10:00 Protonix Inj IVP DAILY TRAVIS - Patient Studies Lab Studies: Lab Studies 05/10/18 05/10/18 05/10/18 Range/Units 11:40 10:30 10:30 WBC (4.5-11.0) 10^3/ul RBC (3.5-6.1) 10^6/uL Hgb (14.0-18.0) g/dL Hct (42.0-52.0) % MCV (80.0-105.0) fl MCH (25.0-35.0) pg MCHC (31.0-37.0) g/dl RDW (11.5-14.5) % Plt Count (120.0-450.0) 10^3/uL MPV (7.0-11.0) fl Differential Comment pCO2 (35-45) mm/Hg pO2 (80-100) mm/Hg HCO3 (21-28) mmol/L ABG pH (7.35-7.45) ABG Total CO2 (22-28) mmol.L ABG O2 Saturation (95-98) % ABG O2 Content (15-23) ML/dl ABG Base Excess (-2.0-3.0) mmol/L ABG Hemoglobin (11.7-17.4) g/dL ABG Carboxyhemoglobin (0.5-1.5) % POC ABG HHb (Measured) (0-5) % ABG Methemoglobin (0.0-3.0) % ABG O2 Capacity (16-24) mL/dl Hgb O2 Saturation (95.0-98.0) % FiO2 % Sodium (132-148) mmol/L Potassium (3.6-5.0) mmol/L Chloride (98-107) mmol/L Carbon Dioxide (21-33) mmol/L Anion Gap (10-20) BUN (7-21) mg/dL Creatinine (0.8-1.5) mg/dl Est GFR ( Amer) Est GFR (Non-Af Amer) POC Glucose (mg/dL) 166 H (65-110) mg/dL Random Glucose (70-110) mg/dL Calcium (8.4-10.5) mg/dL Phosphorus (2.5-4.5) mg/dL Magnesium (1.7-2.2) mg/dL Total Bilirubin (0.2-1.3) mg/dL AST (17-59) U/L ALT (7-56) U/L Alkaline Phosphatase (38-126) U/L Troponin I ng/mL Total Protein (5.8-8.3) g/dL Albumin (3.0-4.8) g/dL Globulin gm/dL Albumin/Globulin Ratio (1.1-1.8) Triglycerides (35-160) mg/dL Cholesterol (130-200) mg/dL LDL Cholesterol Direct (0-129) mg/dL HDL Cholesterol (29-60) mg/dL Urine Color Yellow (YELLOW) Urine Appearance Turbid (CLEAR) Urine pH 5.5 (4.7-8.0) Ur Specific [place] 1.025 (1.005-1.035) Urine Protein Negative (<30 mg/dL) mg/dL Urine Glucose (UA) Negative (NEGATIVE) mg/dL Urine Ketones Negative (NEGATIVE) mg/dL Urine Blood Large H (NEGATIVE) Urine Nitrate Positive H (NEGATIVE) Urine Bilirubin Negative (NEGATIVE) Urine Urobilinogen 0.2 (<1 E.U./dL) E.U./dL Ur Leukocyte Esterase Small H (NEGATIVE) Rachel/uL Urine RBC 25 - 30 (0-2) /hpf Urine WBC 1 - 3 (0-6) /hpf Urine Bacteria Many (NEG) Urine Opiates Screen Negative (NEGATIVE) Urine Methadone Screen Negative (NEGATIVE) Ur Barbiturates Screen Negative (NEGATIVE) Ur Phencyclidine Scrn Negative (NEGATIVE) Ur Amphetamines Screen Negative (NEGATIVE) U Benzodiazepines Scrn Negative (NEGATIVE) U Oth Cocaine Metabols Negative (NEGATIVE) U Cannabinoids Screen Negative (NEGATIVE) 05/10/18 05/10/18 05/10/18 Range/Units 08:00 06:00 06:00 WBC (4.5-11.0) 10^3/ul RBC (3.5-6.1) 10^6/uL Hgb (14.0-18.0) g/dL Hct (42.0-52.0) % MCV (80.0-105.0) fl MCH (25.0-35.0) pg MCHC (31.0-37.0) g/dl RDW (11.5-14.5) % Plt Count (120.0-450.0) 10^3/uL MPV (7.0-11.0) fl Differential Comment See pathology report pCO2 (35-45) mm/Hg pO2 (80-100) mm/Hg HCO3 (21-28) mmol/L ABG pH (7.35-7.45) ABG Total CO2 (22-28) mmol.L ABG O2 Saturation (95-98) % ABG O2 Content (15-23) ML/dl ABG Base Excess (-2.0-3.0) mmol/L ABG Hemoglobin (11.7-17.4) g/dL ABG Carboxyhemoglobin (0.5-1.5) % POC ABG HHb (Measured) (0-5) % ABG Methemoglobin (0.0-3.0) % ABG O2 Capacity (16-24) mL/dl Hgb O2 Saturation (95.0-98.0) % FiO2 % Sodium (132-148) mmol/L Potassium (3.6-5.0) mmol/L Chloride (98-107) mmol/L Carbon Dioxide (21-33) mmol/L Anion Gap (10-20) BUN (7-21) mg/dL Creatinine (0.8-1.5) mg/dl Est GFR ( Amer) Est GFR (Non-Af Amer) POC Glucose (mg/dL) 139 H (65-110) mg/dL Random Glucose (70-110) mg/dL Calcium (8.4-10.5) mg/dL Phosphorus (2.5-4.5) mg/dL Magnesium (1.7-2.2) mg/dL Total Bilirubin (0.2-1.3) mg/dL AST (17-59) U/L ALT (7-56) U/L Alkaline Phosphatase (38-126) U/L Troponin I < 0.01 ng/mL Total Protein (5.8-8.3) g/dL Albumin (3.0-4.8) g/dL Globulin gm/dL Albumin/Globulin Ratio (1.1-1.8) Triglycerides (35-160) mg/dL Cholesterol (130-200) mg/dL LDL Cholesterol Direct (0-129) mg/dL HDL Cholesterol (29-60) mg/dL Urine Color (YELLOW) Urine Appearance (CLEAR) Urine pH (4.7-8.0) Ur Specific [place] (1.005-1.035) Urine Protein (<30 mg/dL) mg/dL Urine Glucose (UA) (NEGATIVE) mg/dL Urine Ketones (NEGATIVE) mg/dL Urine Blood (NEGATIVE) Urine Nitrate (NEGATIVE) Urine Bilirubin (NEGATIVE) Urine Urobilinogen (<1 E.U./dL) E.U./dL Ur Leukocyte Esterase (NEGATIVE) Rachel/uL Urine RBC (0-2) /hpf Urine WBC (0-6) /hpf Urine Bacteria (NEG) Urine Opiates Screen (NEGATIVE) Urine Methadone Screen (NEGATIVE) Ur Barbiturates Screen (NEGATIVE) Ur Phencyclidine Scrn (NEGATIVE) Ur Amphetamines Screen (NEGATIVE) U Benzodiazepines Scrn (NEGATIVE) U Oth Cocaine Metabols (NEGATIVE) U Cannabinoids Screen (NEGATIVE) 05/10/18 05/10/18 05/10/18 Range/Units 06:00 06:00 05:40 WBC 11.6 H D (4.5-11.0) 10^3/ul RBC 4.51 (3.5-6.1) 10^6/uL Hgb 8.8 L (14.0-18.0) g/dL Hct 33.1 L (42.0-52.0) % MCV 73.4 L (80.0-105.0) fl MCH 19.5 L (25.0-35.0) pg MCHC 26.6 L (31.0-37.0) g/dl RDW 22.0 H (11.5-14.5) % Plt Count 324 (120.0-450.0) 10^3/uL MPV 9.4 (7.0-11.0) fl Differential Comment pCO2 57 H (35-45) mm/Hg pO2 115.0 H (80-100) mm/Hg HCO3 25.6 (21-28) mmol/L ABG pH 7.26 L (7.35-7.45) ABG Total CO2 27.3 (22-28) mmol.L ABG O2 Saturation 99.0 H (95-98) % ABG O2 Content 12.6 L (15-23) ML/dl ABG Base Excess -1.8 (-2.0-3.0) mmol/L ABG Hemoglobin 9.1 L (11.7-17.4) g/dL ABG Carboxyhemoglobin 2.0 H (0.5-1.5) % POC ABG HHb (Measured) 1.0 (0-5) % ABG Methemoglobin 0.6 (0.0-3.0) % ABG O2 Capacity 12.7 L (16-24) mL/dl Hgb O2 Saturation 96.4 (95.0-98.0) % FiO2 50.0 % Sodium 145 (132-148) mmol/L Potassium 4.5 (3.6-5.0) mmol/L Chloride 107 (98-107) mmol/L Carbon Dioxide 26 (21-33) mmol/L Anion Gap 16 (10-20) BUN 21 (7-21) mg/dL Creatinine 0.7 L (0.8-1.5) mg/dl Est GFR ( Amer) > 60 Est GFR (Non-Af Amer) > 60 POC Glucose (mg/dL) (65-110) mg/dL Random Glucose 124 H (70-110) mg/dL Calcium 8.7 (8.4-10.5) mg/dL Phosphorus 5.5 H (2.5-4.5) mg/dL Magnesium 1.7 (1.7-2.2) mg/dL Total Bilirubin 0.8 (0.2-1.3) mg/dL AST 33 (17-59) U/L ALT 26 (7-56) U/L Alkaline Phosphatase 265 H (38-126) U/L Troponin I ng/mL Total Protein 6.8 (5.8-8.3) g/dL Albumin 3.1 (3.0-4.8) g/dL Globulin 3.7 gm/dL Albumin/Globulin Ratio 0.8 L (1.1-1.8) Triglycerides 66 (35-160) mg/dL Cholesterol 86 L (130-200) mg/dL LDL Cholesterol Direct 44 (0-129) mg/dL HDL Cholesterol 24 L (29-60) mg/dL Urine Color (YELLOW) Urine Appearance (CLEAR) Urine pH (4.7-8.0) Ur Specific [place] (1.005-1.035) Urine Protein (<30 mg/dL) mg/dL Urine Glucose (UA) (NEGATIVE) mg/dL Urine Ketones (NEGATIVE) mg/dL Urine Blood (NEGATIVE) Urine Nitrate (NEGATIVE) Urine Bilirubin (NEGATIVE) Urine Urobilinogen (<1 E.U./dL) E.U./dL Ur Leukocyte Esterase (NEGATIVE) Rachel/uL Urine RBC (0-2) /hpf Urine WBC (0-6) /hpf Urine Bacteria (NEG) Urine Opiates Screen (NEGATIVE) Urine Methadone Screen (NEGATIVE) Ur Barbiturates Screen (NEGATIVE) Ur Phencyclidine Scrn (NEGATIVE) Ur Amphetamines Screen (NEGATIVE) U Benzodiazepines Scrn (NEGATIVE) U Oth Cocaine Metabols (NEGATIVE) U Cannabinoids Screen (NEGATIVE) 05/10/18 05/09/18 05/09/18 Range/Units 02:41 21:17 20:52 WBC (4.5-11.0) 10^3/ul RBC (3.5-6.1) 10^6/uL Hgb (14.0-18.0) g/dL Hct (42.0-52.0) % MCV (80.0-105.0) fl MCH (25.0-35.0) pg MCHC (31.0-37.0) g/dl RDW (11.5-14.5) % Plt Count (120.0-450.0) 10^3/uL MPV (7.0-11.0) fl Differential Comment pCO2 58 H (35-45) mm/Hg pO2 137.0 H (80-100) mm/Hg HCO3 24.9 (21-28) mmol/L ABG pH 7.24 L (7.35-7.45) ABG Total CO2 26.7 (22-28) mmol.L ABG O2 Saturation 99.5 H (95-98) % ABG O2 Content 12.2 L (15-23) ML/dl ABG Base Excess -2.8 L (-2.0-3.0) mmol/L ABG Hemoglobin 8.8 L (11.7-17.4) g/dL ABG Carboxyhemoglobin 2.8 H (0.5-1.5) % POC ABG HHb (Measured) 0.5 (0-5) % ABG Methemoglobin 0.6 (0.0-3.0) % ABG O2 Capacity 12.3 L (16-24) mL/dl Hgb O2 Saturation 96.2 (95.0-98.0) % FiO2 50.0 % Sodium (132-148) mmol/L Potassium (3.6-5.0) mmol/L Chloride (98-107) mmol/L Carbon Dioxide (21-33) mmol/L Anion Gap (10-20) BUN (7-21) mg/dL Creatinine (0.8-1.5) mg/dl Est GFR ( Amer) Est GFR (Non-Af Amer) POC Glucose (mg/dL) 166 H 130 H (65-110) mg/dL Random Glucose (70-110) mg/dL Calcium (8.4-10.5) mg/dL Phosphorus (2.5-4.5) mg/dL Magnesium (1.7-2.2) mg/dL Total Bilirubin (0.2-1.3) mg/dL AST (17-59) U/L ALT (7-56) U/L Alkaline Phosphatase (38-126) U/L Troponin I ng/mL Total Protein (5.8-8.3) g/dL Albumin (3.0-4.8) g/dL Globulin gm/dL Albumin/Globulin Ratio (1.1-1.8) Triglycerides (35-160) mg/dL Cholesterol (130-200) mg/dL LDL Cholesterol Direct (0-129) mg/dL HDL Cholesterol (29-60) mg/dL Urine Color (YELLOW) Urine Appearance (CLEAR) Urine pH (4.7-8.0) Ur Specific [place] (1.005-1.035) Urine Protein (<30 mg/dL) mg/dL Urine Glucose (UA) (NEGATIVE) mg/dL Urine Ketones (NEGATIVE) mg/dL Urine Blood (NEGATIVE) Urine Nitrate (NEGATIVE) Urine Bilirubin (NEGATIVE) Urine Urobilinogen (<1 E.U./dL) E.U./dL Ur Leukocyte Esterase (NEGATIVE) Rachel/uL Urine RBC (0-2) /hpf Urine WBC (0-6) /hpf Urine Bacteria (NEG) Urine Opiates Screen (NEGATIVE) Urine Methadone Screen (NEGATIVE) Ur Barbiturates Screen (NEGATIVE) Ur Phencyclidine Scrn (NEGATIVE) Ur Amphetamines Screen (NEGATIVE) U Benzodiazepines Scrn (NEGATIVE) U Oth Cocaine Metabols (NEGATIVE) U Cannabinoids Screen (NEGATIVE) Laboratory Results - last 24 hr 05/09/18 05/09/18 05/10/18 20:52 21:17 02:41 WBC RBC Hgb Hct MCV MCH MCHC RDW Plt Count MPV Differential Comment pCO2 58 H pO2 137.0 H HCO3 24.9 ABG pH 7.24 L ABG Total CO2 26.7 ABG O2 Saturation 99.5 H ABG O2 Content 12.2 L ABG Base Excess -2.8 L ABG Hemoglobin 8.8 L ABG Carboxyhemoglobin 2.8 H POC ABG HHb (Measured) 0.5 ABG Methemoglobin 0.6 ABG O2 Capacity 12.3 L Hgb O2 Saturation 96.2 FiO2 50.0 Sodium Potassium Chloride Carbon Dioxide Anion Gap BUN Creatinine Est GFR ( Amer) Est GFR (Non-Af Amer) POC Glucose (mg/dL) 130 H 166 H Random Glucose Calcium Phosphorus Magnesium Total Bilirubin AST ALT Alkaline Phosphatase Troponin I Total Protein Albumin Globulin Albumin/Globulin Ratio Triglycerides Cholesterol LDL Cholesterol Direct HDL Cholesterol Urine Color Urine Appearance Urine pH Ur Specific [place] Urine Protein Urine Glucose (UA) Urine Ketones Urine Blood Urine Nitrate Urine Bilirubin Urine Urobilinogen Ur Leukocyte Esterase Urine RBC Urine WBC Urine Bacteria Urine Opiates Screen Urine Methadone Screen Ur Barbiturates Screen Ur Phencyclidine Scrn Ur Amphetamines Screen U Benzodiazepines Scrn U Oth Cocaine Metabols U Cannabinoids Screen 05/10/18 05/10/18 05/10/18 05:40 06:00 06:00 WBC 11.6 H D RBC 4.51 Hgb 8.8 L Hct 33.1 L MCV 73.4 L MCH 19.5 L MCHC 26.6 L RDW 22.0 H Plt Count 324 MPV 9.4 Differential Comment pCO2 57 H pO2 115.0 H HCO3 25.6 ABG pH 7.26 L ABG Total CO2 27.3 ABG O2 Saturation 99.0 H ABG O2 Content 12.6 L ABG Base Excess -1.8 ABG Hemoglobin 9.1 L ABG Carboxyhemoglobin 2.0 H POC ABG HHb (Measured) 1.0 ABG Methemoglobin 0.6 ABG O2 Capacity 12.7 L Hgb O2 Saturation 96.4 FiO2 50.0 Sodium 145 Potassium 4.5 Chloride 107 Carbon Dioxide 26 Anion Gap 16 BUN 21 Creatinine 0.7 L Est GFR ( Amer) > 60 Est GFR (Non-Af Amer) > 60 POC Glucose (mg/dL) Random Glucose 124 H Calcium 8.7 Phosphorus 5.5 H Magnesium 1.7 Total Bilirubin 0.8 AST 33 ALT 26 Alkaline Phosphatase 265 H Troponin I Total Protein 6.8 Albumin 3.1 Globulin 3.7 Albumin/Globulin Ratio 0.8 L Triglycerides 66 Cholesterol 86 L LDL Cholesterol Direct 44 HDL Cholesterol 24 L Urine Color Urine Appearance Urine pH Ur Specific [place] Urine Protein Urine Glucose (UA) Urine Ketones Urine Blood Urine Nitrate Urine Bilirubin Urine Urobilinogen Ur Leukocyte Esterase Urine RBC Urine WBC Urine Bacteria Urine Opiates Screen Urine Methadone Screen Ur Barbiturates Screen Ur Phencyclidine Scrn Ur Amphetamines Screen U Benzodiazepines Scrn U Oth Cocaine Metabols U Cannabinoids Screen 05/10/18 05/10/18 05/10/18 06:00 06:00 08:00 WBC RBC Hgb Hct MCV MCH MCHC RDW Plt Count MPV Differential Comment See pathology report pCO2 pO2 HCO3 ABG pH ABG Total CO2 ABG O2 Saturation ABG O2 Content ABG Base Excess ABG Hemoglobin ABG Carboxyhemoglobin POC ABG HHb (Measured) ABG Methemoglobin ABG O2 Capacity Hgb O2 Saturation FiO2 Sodium Potassium Chloride Carbon Dioxide Anion Gap BUN Creatinine Est GFR ( Amer) Est GFR (Non-Af Amer) POC Glucose (mg/dL) 139 H Random Glucose Calcium Phosphorus Magnesium Total Bilirubin AST ALT Alkaline Phosphatase Troponin I < 0.01 Total Protein Albumin Globulin Albumin/Globulin Ratio Triglycerides Cholesterol LDL Cholesterol Direct HDL Cholesterol Urine Color Urine Appearance Urine pH Ur Specific [place] Urine Protein Urine Glucose (UA) Urine Ketones Urine Blood Urine Nitrate Urine Bilirubin Urine Urobilinogen Ur Leukocyte Esterase Urine RBC Urine WBC Urine Bacteria Urine Opiates Screen Urine Methadone Screen Ur Barbiturates Screen Ur Phencyclidine Scrn Ur Amphetamines Screen U Benzodiazepines Scrn U Oth Cocaine Metabols U Cannabinoids Screen 05/10/18 05/10/18 05/10/18 10:30 10:30 11:40 WBC RBC Hgb Hct MCV MCH MCHC RDW Plt Count MPV Differential Comment pCO2 pO2 HCO3 ABG pH ABG Total CO2 ABG O2 Saturation ABG O2 Content ABG Base Excess ABG Hemoglobin ABG Carboxyhemoglobin POC ABG HHb (Measured) ABG Methemoglobin ABG O2 Capacity Hgb O2 Saturation FiO2 Sodium Potassium Chloride Carbon Dioxide Anion Gap BUN Creatinine Est GFR ( Amer) Est GFR (Non-Af Amer) POC Glucose (mg/dL) 166 H Random Glucose Calcium Phosphorus Magnesium Total Bilirubin AST ALT Alkaline Phosphatase Troponin I Total Protein Albumin Globulin Albumin/Globulin Ratio Triglycerides Cholesterol LDL Cholesterol Direct HDL Cholesterol Urine Color Yellow Urine Appearance Turbid Urine pH 5.5 Ur Specific [place] 1.025 Urine Protein Negative Urine Glucose (UA) Negative Urine Ketones Negative Urine Blood Large H Urine Nitrate Positive H Urine Bilirubin Negative Urine Urobilinogen 0.2 Ur Leukocyte Esterase Small H Urine RBC 25 - 30 Urine WBC 1 - 3 Urine Bacteria Many Urine Opiates Screen Negative Urine Methadone Screen Negative Ur Barbiturates Screen Negative Ur Phencyclidine Scrn Negative Ur Amphetamines Screen Negative U Benzodiazepines Scrn Negative U Oth Cocaine Metabols Negative U Cannabinoids Screen Negative EKG/Cardiology Studies: Cardiology / EKG Studies 05/10/18 07:00 EKG [ELECTROCARDIOGRAM] Routine Comment: Reason For Exam: arrythmia? 05/10/18 09:45 EKG [ELECTROCARDIOGRAM] Stat Comment: Reason For Exam: rhythm chnage? Critical Care Progress Note - Nutrition Nutrition: Nutrition Category Date Time Status Dysphagia/Modified Consistency Diet [DIET] Diets 05/10/18 Lunch Ordered Assessment/Plan - Assessment and Plan (Free Text) Assessment: Patient seen and examined, on rounds with resident, agree with note with following additions/exceptions: Patient is 52yo male with PMhx of morbid obesity, COPD, active smoker, HIV uknown CD4 count, CHF EF 30%, CAD, presented with hypercapnic resp failure. This morning patient more alert, awake, taken off BIPAP, tolerating 2LNC ABG with improvement in hypercapnia. On Lasix IV and SOlumedrol IV Currently afebrie, HD stable, comfortable in NAD, on 2LNC, sat 95%, AAOx2 CHF exacerbation COPD exacerbation HIV CAD Hypercapnic resp failure, resolved Recommend: - cont with supp o2, goal sat 90%, BIPAP at night and as needed - Solumedrol 40mg IV Q8hr - Lasix 40mg IV BID - BP control - Resume HAART meds - check CD 4 count - ID eval - PT eval - GI ppx - DVT ppx - Transfer to tele
[2018-05-10 11:12] LABS: PH,URINE 5.5 (4.7-8.0); URINE BILIRUBIN NEGATIVE (NEGATIVE); URINE BLOOD LARGE (NEGATIVE); URINE GLUCOSE (UA) NEGATIVE (NEGATIVE); URINE LEUKOCYTE ESTERASE SMALL Leu/uL (NEGATIVE); URINE PROTEIN NEGATIVE mg/dL (<30 mg/dL); URINE UROBILINOGEN 0.2 E.U./dL (<1 E.U./dL)
--- NOTE | 2018-05-10 11:13 | CARD ---
APPROVED REPORT Date of service: 05/10/2018 EKG Measurement Heart [id number] [id number] <Conclusion> Sinus rhythm with marked sinus arrhythmia Indeterminate axis Pulmonary disease pattern Poor R wave progression Prolonged QT Abnormal ECG
[2018-05-10 11:19] LABS: URINE APPEARANCE TURBID (CLEAR); URINE COLOR YELLOW (YELLOW)
[2018-05-10 11:21] LABS: URINE BACTERIA MANY (NEG); URINE RBC 25 - 30 /hpf (0-2)
--- NOTE | 2018-05-10 11:22 | CARD ---
APPROVED REPORT Date of service: 05/10/2018 EKG Measurement Heart [id number] [id number] <Conclusion> Sinus rhythm with premature atrial complexes Indeterminate axis Pulmonary disease pattern Abnormal ECG
[2018-05-10 11:51] LABS: BARBITURATES, UR NEGATIVE (NEGATIVE); BENZODIAZEPINES, UR NEGATIVE (NEGATIVE); OPIATES, UR NEGATIVE (NEGATIVE); PHENCYCLIDINE, UR NEGATIVE (NEGATIVE)
--- NOTE | 2018-05-10 12:31 | CP.PCM.PN ---
<Alejandro Barrios - Last Filed: 05/10/18 16:26> Subjective - Date & Time of Evaluation Date of Evaluation: 05/10/18 Time of Evaluation: 12:27 - Subjective Subjective: Alejandro Barrios PGY1 Progress Note for Dr. Murry Mr. Khan was examined at bedside this morning, off the bipap. He was drowsy, but arousable and able to answer questions. He denied any shortness of breath, chest pain, dizziness, abdominal pain, nausea, vomiting, diarrhea. Updated SocHx: denied hx of HIV/STI, sexually active with 1 partner, uses protection. reported smoking 40 pack/yr, denied etoh use Objective - Vital Signs/Intake and Output Vital Signs (last 24 hours): Temp Pulse Resp BP Pulse Ox 97 F L 96 H 17 109/70 93 L 05/10/18 07:30 05/10/18 11:29 05/10/18 11:00 05/10/18 10:01 05/10/18 11:00 Intake and Output: 05/10/18 05/10/18 06:59 18:59 Output Total 1700 Balance -1700 - Medications Medications: Current Medications Albuterol/Ipratropium (Duoneb 3 Mg/0.5 Mg (3 Ml) Ud) 3 ml IH [id number] [facility] Last Admin: 05/10/18 07:30 Dose: 3 ml Aspirin (Aspirin Chewable) 81 mg PO DAILY [facility] Last Admin: 05/10/18 09:02 Dose: 81 mg Dextrose (Dextrose 50% Inj) 0 ml IV STAT PRN; Protocol PRN Reason: Hypoglycemia Protocol Furosemide (Lasix) 60 mg IVP Q12 [facility] Last Admin: 05/10/18 09:02 Dose: 60 mg Heparin Sodium (Porcine) (Heparin) 5,000 units SC Q12 [facility] PRN Reason: Protocol Insulin Human Regular (Humulin R) 0 units SC Q6H [facility] PRN Reason: Protocol Last Admin: 05/10/18 08:20 Dose: Not Given Methylprednisolone (Solu-Medrol) 60 mg IVP Q12 [facility] Last Admin: 05/10/18 09:00 Dose: Not Given Pantoprazole Sodium (Protonix Inj) 40 mg IVP DAILY [facility] - Labs Labs: 05/10/18 06:00 05/10/18 06:00 PT 21.4 SECONDS (9.4-12.5) H 05/09/18 17:00 INR 1.85 05/09/18 17:00 APTT 30.9 Seconds (25.1-36.5) 05/09/18 17:00 - Constitutional Appears: In Acute Distress - Head Exam Head Exam: ATRAUMATIC, NORMOCEPHALIC - Eye Exam Eye Exam: EOMI Pupil Exam: NORMAL ACCOMODATION - Respiratory Exam Additional comments: expiratory wheezes in b/l lung cano, cough - Cardiovascular Exam Cardiovascular Exam: REGULAR RHYTHM, +S1, +S2. absent: Gallop, Rubs, Murmur - GI/Abdominal Exam GI & Abdominal Exam: Soft. absent: Distended, Firm, Rigid, Tenderness - Exam Exam: Scrotal Swelling - Extremities Exam Additional comments: edema in b/l thighs stasis derm changes of b/l LE - Neurological Exam Neurological Exam: Awake Additional comments: AAO x1, to person - Psychiatric Exam Additional comments: despondent Assessment and Plan - Assessment and Plan (Free Text) Assessment: 52 year old male with a PMHx of COPD, DM2, HTN, HLD, CHF, CAD w/ stent, lumbar radiculopathy, gout, brought by EMS for respiratory distress 2/2 CHF exacerbation likely due to home medication non-compliance. Plan: Respiratory Distress 2/2 CHF exacerbation - Cardiac cath at [facility] in 12/[address] Judge: EF 30% and LAD lesion 80%. Lifevest provided however patient non-compliant and no cardiology follow-up - proBNP 2219 - bedside echo in ED: dilated cardiomyopathy with reduced EF - F/U echo - ABG 05/10: pCO2 57 from 58, pO2 115 from 137, pH 7.26 from 7.24 - UDS negative - CXR: moderate CHF, significant cardiomegaly - CT head: no active disease - continue lasix 60mg IV BID (hold parameters: SBP<100) - duonebs q6h travis - taken off bipap this morning, monitor breathing - Head of bed 30 degrees - I/Os: 1700 output - daily weights: 318 lb today - Home meds (hold): coreg 12.5mg po bid, lasix 40mg po tid, aldactone 25mg po qd - Cardiology consulted, Dr. Suarez- no intervention at this time, continue current medication regimen HIV Antiviral Therapy - Patient's girlfriend brought home meds, including Combivir (lamivudine/ zidovudine) which he confirmed is not his medication - pt denies h/o HIV or STI, reports safe sex practices with 1 partner - f/u HIV 4th gen - PMD at [facility] contacted, expecting records to be faxed - ID Consulted, Dr. Groves - recs appreciated Leukocytosis - WBC 11.6 today from 7.2 on admission - likely reactive - continue to monitor Suspect Arrythmia - home medication includes eliquis 5mg po bid - repeat EKG: sinus arrythmia with pulmonary disease, prolonged QT - PMD at [facility] contacted, expecting records to be faxed Scrotal Edema - likely secondary to CHF, anasarca - pt reports longstanding history - ordered US testes - monitor CAD - stent placed in 2014 - Cardiac cath at [facility] in 12/[address] Judge: EF 30% and LAD lesion 80%. Lifevest provided however patient non-compliant and no cardiology follow-up - Trop x2 negative - EKG: sinus arrythmia with pulmonary disease, prolonged QT - Cardiology consulted, Dr. Suarez- no intervention at this time, continue current medication regimen COPD - smokes 2 packs per day - home medications: ventolin and flovent, reports noncompliance - b/l expiratory wheezes - taken off bipap this morning, monitor breathing - duoneb q6h travis DM2 - home medications: metformin 500mg po bid, reports noncompliance - accucheck q6h, RISS low dose - f/u HbA1c - UA: small leukocyte HTN -home meds include lisinopril 2.5mg po qd, cardizem 30mg po qid -BP well controlled HLD - home medication: lipitor 20mg po qd, reports noncompliance - lipid panel: TG 66, Cholesterol 86, LDL 44, HDL 24 Microcytic Anemia - likely chronic/multifactorial - Hb 05/10 8.8 from 9.6 (baseline per chart ~10.5 from 12/2017) - Fe 10 (low), TIBC 171 (low), %sat 6 (low), ferritin 16.8 - pending vitamin b12, folate level - f/u FOBT - f/u outpatient Prophylaxis - SCDs contraindicated - edema b/l - advance bite size diet - GI prophylaxis not indicated Case reviewed and discussed with Dr. Murry <Jamel Murry - Last Filed: 05/12/18 07:54> Objective - Vital Signs/Intake and Output Vital Signs (last 24 hours): Temp Pulse Resp BP Pulse Ox 97.3 F L 99 H 20 164/100 H 96 05/12/18 06:01 05/12/18 06:01 05/12/18 06:01 05/12/18 06:01 05/12/18 06:01 Intake and Output: 05/12/18 05/12/18 06:59 18:59 Intake Total 620 Output Total 1200 Balance -580 - Medications Medications: Current Medications Albuterol/Ipratropium (Duoneb 3 Mg/0.5 Mg (3 Ml) Ud) 3 ml IH [id number] [facility] Last Admin: 05/12/18 07:17 Dose: 3 ml Arformoterol Tartrate (Brovana) 15 mcg IH [id number] [facility] Last Admin: 05/12/18 07:17 Dose: 15 mcg Aspirin (Aspirin Chewable) 81 mg PO DAILY [facility] Last Admin: 05/11/18 09:59 Dose: 81 mg Budesonide (Pulmicort Respules) 0.5 mg IH [id number] [facility] Last Admin: 05/12/18 07:17 Dose: 0.5 mg Dextrose (Dextrose 50% Inj) 0 ml IV STAT PRN; Protocol PRN Reason: Hypoglycemia Protocol Furosemide (Lasix) 60 mg IVP Q12 [facility] Last Admin: 05/11/18 21:34 Dose: 60 mg Heparin Sodium (Porcine) (Heparin) 5,000 units SC Q12 [facility] PRN Reason: Protocol Last Admin: 05/11/18 21:05 Dose: 5,000 units Ceftriaxone Sodium (Rocephin 1 Gram Ivpb) 1 gm in 100 mls @ 100 mls/hr IVPB DAILY [facility] PRN Reason: Protocol Last Admin: 05/11/18 12:57 Dose: 100 mls/hr Insulin Human Regular (Humulin R) 0 units SC ACHS [facility] PRN Reason: Protocol Last Admin: 05/11/18 22:24 Dose: Not Given Methylprednisolone (Solu-Medrol) 60 mg IVP Q12 [facility] Last Admin: 05/11/18 21:33 Dose: 60 mg Pantoprazole Sodium (Protonix Ec Tab) 40 mg PO DAILY [facility] - Labs Labs: 05/12/18 05:40 05/12/18 05:40 PT 21.4 SECONDS (9.4-12.5) H 05/09/18 17:00 INR 1.85 05/09/18 17:00 APTT 30.9 Seconds (25.1-36.5) 05/09/18 17:00 Attending/Attestation - Attestation I have personally seen and examined this patient.: Yes I have fully participated in the care of the patient.: Yes I have reviewed all pertinent clinical information, including history, physical exam and plan: Yes Notes (Text): 05/12/18 07:44 Attending note; Patient seen and examined with resident in ICU. Patient is alert and awake. Not able to give full history. History from previous chart review/ER attending note/ girl friend. Patient was on BiPAP overnight. Currently on oxygen nasal cannula. Patient is a 52 year old male with a PMHx of COPD, DM2, HTN, HLD, CHF, CAD , lumbar radiculopathy, gout, brought by EMS for respiratory distress and progressive worsening of generalized body swelling per girlfriend. Patient also has fallen couple of times at home without any significant injury. Patient was also getting lethargic for the past few days. Acute systolic CHF exacerbation; likely due to home medication non-compliance. Started on IV Lasix. Use BiPAP as needed. Monitor input and output. History of coronary artery disease and stent placement. Patient used to wear LifeVest for a few weeks in January 2018. Patient was noncompliance with medication since then. Cardiology evaluation requested. Echocardiogram ordered. Generalized anasarca; secondary to heart failure. There was a question about the diagnosis of HIV. Because of Combivir medication found mixed with his meds. Will order HIV. ID evaluation requested. Currently not on any meds. Diabetes; continue regular insulin sliding scale. Anemia; needs workup after stabilization. currently no active bleeding. Iron studies ordered. Scrotal edema; secondary to CHF. Ultrasound ordered. Prognosis is poor. We will try to get history from PMDs office. Monitor closely in ICU. Case discussed with per diem clerk in detail. Case discussed with talent acquisition project manager in detail. 05/12/18 07:48 05/12/18 07:49 05/12/18 07:51 05/12/18 07:52 05/12/18 07:53
[2018-05-10 12:35] LABS: FERRITIN 16.8 ng/mL
--- NOTE | 2018-05-10 12:46 | CON ---
Copied To: Beny Salgado MD Attending MD: Beny Salgado MD DATE: 05/10/2018 CARDIOLOGY CONSULT REASON FOR CONSULTATION: Shortness of breath. HISTORY OF PRESENT ILLNESS: Patient is a 52-year-old -Turkish male who has a history of cardiomyopathy with borderline disease of the LAD on a cardiac catheterization performed by Dr. Judge 2 months ago and the patient was discharged on medications and LifeVest; however, the patient abandoned everything including LifeVest and all his medication and then the girlfriend activated the EMS because of his shortness of breath. At this time, the patient is uncooperative and does not give any reliable information. The patient is HIV positive according to his medication list. Apparently, the patient required intubation and mechanical ventilation in the past. SOCIAL HISTORY: Patient is a smoker and EtOH abuser as well as a former cocaine abuser. MEDICATIONS: Aspirin 81 mg once a day, albuterol inhaler every 6 hours, heparin 5000 units subcutaneous every 12 hours, Lasix 60 mg intravenously twice a day, Protonix 40 mg intravenously once a day, Solu-Medrol 60 mg intravenously every 12 hours. REVIEW OF SYSTEMS: No seizures. No reported hypotension. No reported ventricular tachycardia. PHYSICAL EXAMINATION: GENERAL: The patient is morbidly obese middle-aged male, who is mildly tachypneic, but does not appear to be in acute distress. VITAL SIGNS: Most recent blood pressure is 129/101, heart rate 82, temperature 97.3, respirations 16. HEENT: Mild facial edema. NECK: Jugular venous distention is noted. CHEST: Absent breath sounds over the bases. HEART: S1 and S2 regular. ABDOMEN: Soft. EXTREMITIES: 2 to 3+ pitting edema. LABORATORY DATA: EKG revealed sinus rhythm with APCs and PVCs, right bundle-branch block, low voltage, possible lateral infarct and possible inferior posterior infarct of indeterminate age. Chest x-ray revealed significant cardiomegaly with moderate CHF. ASSESSMENT: 1. Exacerbation of congestive heart failure. 2. Hypertension. 3. 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 4. Extreme noncompliance. 5. Possible human immunodeficiency virus positive, patient is on Combivir. RECOMMENDATIONS: Case was discussed with the medical team including Dr. Murry. Continue current conservative medical approach including aspirin 81 mg once a day, subcutaneous heparin 5000 units every 12 hours, Lasix 60 mg intravenously twice a day, Solu-Medrol 60 mg intravenously twice a day. Cardiac intervention will not be justified in view of the patient's complete noncompliance with his medications as he abandoned taking all his medications according to his girlfriend and refused to keep the LifeVest. I would review the echocardiographic study, which was performed at the bedside today. Beny Salgado MD
[2018-05-10 13:06] LABS: FOLATE 5.9 ng/mL
--- NOTE | 2018-05-10 13:41 | CT ---
Date of service: 05/10/2018 PROCEDURE: CT HEAD WITHOUT CONTRAST. HISTORY: s/p fall at home COMPARISON: None available. TECHNIQUE: Axial computed tomography images were obtained through the head/brain without intravenous contrast. Radiation dose: Total exam DLP = 969 mGy-cm. This CT exam was performed using one or more of the following dose reduction techniques: Automated exposure control, adjustment of the mA and/or kV according to patient size, and/or use of iterative reconstruction technique. FINDINGS: HEMORRHAGE: No intracranial hemorrhage. BRAIN: No mass effect or edema. No atrophy or chronic microvascular ischemic changes. VENTRICLES: Unremarkable. No hydrocephalus. CALVARIUM: Unremarkable. PARANASAL SINUSES: Unremarkable as visualized. No significant inflammatory changes. MASTOID AIR CELLS: Unremarkable as visualized. No inflammatory changes. OTHER FINDINGS: There is soft tissue swelling over the left zygomatic arch. There is no fracture IMPRESSION: No acute intracranial findings
--- NOTE | 2018-05-10 14:20 | CP.PCM.CON ---
History of Present Illness - History of Present Illness History of Present Illness: 52 year old male with PMH of CAD S/P PCI, chronic CHF, DM, COPD, HTN, dyslipidemia, gout, morbid obesity with BMI 41 lumbar radiculopathy was brought in by the patient's girlfriend because of worsening difficulty in breathing over 1 day, associated with increased swelling of his lower extremities. He was also found to be lethargic although arousable. In the ED, he was noted be have respiratory acidosis and was placed on BIPAP. Patient's mental status improved but patient refused to use BiPAP and he would have some lethargy. He is arousable and would answer few questions. He denies chest pain, no headache or dizziness, no blurring of vision, no nausea or vomiting, no abdominal pain, no diarrhea, no dysuria. Infectious Diseases consult is requested to investigate whether patient is HIV positive or not. Patient is not answering questions about his HIV status. Review of Systems - Review of Systems All systems: reviewed and no additional remarkable complaints except (as per HPI ) Past Patient History - Past Social History Smoking Status: Unknown If Ever Smoked - CARDIAC Hx Cardiac Disorders: Yes Hx Congestive Heart Failure: Yes - PULMONARY Hx Respiratory Disorders: Yes - MUSCULOSKELETAL/RHEUMATOLOGICAL Hx Falls: Yes - PSYCHIATRIC Hx Substance Use: No - SURGICAL HISTORY Other/Comment: ABDOMINAL SURGERY Meds Allergies/Adverse Reactions: Allergies Allergy/AdvReac Type Severity Reaction Status Date / Time Unobtainable Allergy Verified 05/09/18 16:59 - Medications Medications: Current Medications Albuterol/Ipratropium (Duoneb 3 Mg/0.5 Mg (3 Ml) Ud) 3 ml IH [id number] [facility] Last Admin: 05/10/18 07:30 Dose: 3 ml Aspirin (Aspirin Chewable) 81 mg PO DAILY [facility] Last Admin: 05/10/18 09:02 Dose: 81 mg Dextrose (Dextrose 50% Inj) 0 ml IV STAT PRN; Protocol PRN Reason: Hypoglycemia Protocol Furosemide (Lasix) 60 mg IVP Q12 [facility] Last Admin: 05/10/18 09:02 Dose: 60 mg Heparin Sodium (Porcine) (Heparin) 5,000 units SC Q12 [facility] PRN Reason: Protocol Insulin Human Regular (Humulin R) 0 units SC Q6H [facility] PRN Reason: Protocol Last Admin: 05/10/18 08:20 Dose: Not Given Methylprednisolone (Solu-Medrol) 60 mg IVP Q12 [facility] Last Admin: 05/10/18 09:00 Dose: Not Given Pantoprazole Sodium (Protonix Inj) 40 mg IVP DAILY [facility] Physical Exam - Constitutional Appears: Chronically Ill, Other (somewhat lethargic but arousable and answers questions) - Head Exam Head Exam: NORMAL INSPECTION - ENT Exam ENT Exam: Mucous Membranes Moist - Neck Exam Neck exam: Negative for: Meningismus - Respiratory Exam Respiratory Exam: Decreased Breath Sounds, Rales (scattered), Wheezes (scattered ) - Cardiovascular Exam Cardiovascular Exam: +S1, +S2 - GI/Abdominal Exam GI & Abdominal Exam: Soft. absent: Tenderness Results - Vital Signs Recent Vital Signs: Last Vital Signs Temp 97 F L 05/10/18 07:30 Pulse 93 H 05/10/18 11:00 Resp 17 05/10/18 11:00 BP 109/70 05/10/18 10:01 Pulse Ox 93 L 05/10/18 11:00 - Labs Result Diagrams: 05/10/18 06:00 05/10/18 06:00 Labs: Laboratory Results - last 24 hr 05/09/18 05/09/18 05/10/18 20:52 21:17 02:41 WBC RBC Hgb Hct MCV MCH MCHC RDW Plt Count MPV Differential Comment pCO2 58 H pO2 137.0 H HCO3 24.9 ABG pH 7.24 L ABG Total CO2 26.7 ABG O2 Saturation 99.5 H ABG O2 Content 12.2 L ABG Base Excess -2.8 L ABG Hemoglobin 8.8 L ABG Carboxyhemoglobin 2.8 H POC ABG HHb (Measured) 0.5 ABG Methemoglobin 0.6 ABG O2 Capacity 12.3 L Hgb O2 Saturation 96.2 FiO2 50.0 Sodium Potassium Chloride Carbon Dioxide Anion Gap BUN Creatinine Est GFR ( Amer) Est GFR (Non-Af Amer) POC Glucose (mg/dL) 130 H 166 H Random Glucose Calcium Phosphorus Magnesium Total Bilirubin AST ALT Alkaline Phosphatase Troponin I Total Protein Albumin Globulin Albumin/Globulin Ratio Triglycerides Cholesterol LDL Cholesterol Direct HDL Cholesterol Urine Color Urine Appearance Urine pH Ur Specific [place] Urine Protein Urine Glucose (UA) Urine Ketones Urine Blood Urine Nitrate Urine Bilirubin Urine Urobilinogen Ur Leukocyte Esterase Urine RBC Urine WBC Urine Bacteria Urine Opiates Screen Urine Methadone Screen Ur Barbiturates Screen Ur Phencyclidine Scrn Ur Amphetamines Screen U Benzodiazepines Scrn U Oth Cocaine Metabols U Cannabinoids Screen 05/10/18 05/10/18 05/10/18 05:40 06:00 06:00 WBC 11.6 H D RBC 4.51 Hgb 8.8 L Hct 33.1 L MCV 73.4 L MCH 19.5 L MCHC 26.6 L RDW 22.0 H Plt Count 324 MPV 9.4 Differential Comment pCO2 57 H pO2 115.0 H HCO3 25.6 ABG pH 7.26 L ABG Total CO2 27.3 ABG O2 Saturation 99.0 H ABG O2 Content 12.6 L ABG Base Excess -1.8 ABG Hemoglobin 9.1 L ABG Carboxyhemoglobin 2.0 H POC ABG HHb (Measured) 1.0 ABG Methemoglobin 0.6 ABG O2 Capacity 12.7 L Hgb O2 Saturation 96.4 FiO2 50.0 Sodium 145 Potassium 4.5 Chloride 107 Carbon Dioxide 26 Anion Gap 16 BUN 21 Creatinine 0.7 L Est GFR ( Amer) > 60 Est GFR (Non-Af Amer) > 60 POC Glucose (mg/dL) Random Glucose 124 H Calcium 8.7 Phosphorus 5.5 H Magnesium 1.7 Total Bilirubin 0.8 AST 33 ALT 26 Alkaline Phosphatase 265 H Troponin I Total Protein 6.8 Albumin 3.1 Globulin 3.7 Albumin/Globulin Ratio 0.8 L Triglycerides 66 Cholesterol 86 L LDL Cholesterol Direct 44 HDL Cholesterol 24 L Urine Color Urine Appearance Urine pH Ur Specific [place] Urine Protein Urine Glucose (UA) Urine Ketones Urine Blood Urine Nitrate Urine Bilirubin Urine Urobilinogen Ur Leukocyte Esterase Urine RBC Urine WBC Urine Bacteria Urine Opiates Screen Urine Methadone Screen Ur Barbiturates Screen Ur Phencyclidine Scrn Ur Amphetamines Screen U Benzodiazepines Scrn U Oth Cocaine Metabols U Cannabinoids Screen 05/10/18 05/10/18 05/10/18 06:00 06:00 08:00 WBC RBC Hgb Hct MCV MCH MCHC RDW Plt Count MPV Differential Comment See pathology report pCO2 pO2 HCO3 ABG pH ABG Total CO2 ABG O2 Saturation ABG O2 Content ABG Base Excess ABG Hemoglobin ABG Carboxyhemoglobin POC ABG HHb (Measured) ABG Methemoglobin ABG O2 Capacity Hgb O2 Saturation FiO2 Sodium Potassium Chloride Carbon Dioxide Anion Gap BUN Creatinine Est GFR ( Amer) Est GFR (Non-Af Amer) POC Glucose (mg/dL) 139 H Random Glucose Calcium Phosphorus Magnesium Total Bilirubin AST ALT Alkaline Phosphatase Troponin I < 0.01 Total Protein Albumin Globulin Albumin/Globulin Ratio Triglycerides Cholesterol LDL Cholesterol Direct HDL Cholesterol Urine Color Urine Appearance Urine pH Ur Specific [place] Urine Protein Urine Glucose (UA) Urine Ketones Urine Blood Urine Nitrate Urine Bilirubin Urine Urobilinogen Ur Leukocyte Esterase Urine RBC Urine WBC Urine Bacteria Urine Opiates Screen Urine Methadone Screen Ur Barbiturates Screen Ur Phencyclidine Scrn Ur Amphetamines Screen U Benzodiazepines Scrn U Oth Cocaine Metabols U Cannabinoids Screen 05/10/18 05/10/18 05/10/18 10:30 10:30 11:40 WBC RBC Hgb Hct MCV MCH MCHC RDW Plt Count MPV Differential Comment pCO2 pO2 HCO3 ABG pH ABG Total CO2 ABG O2 Saturation ABG O2 Content ABG Base Excess ABG Hemoglobin ABG Carboxyhemoglobin POC ABG HHb (Measured) ABG Methemoglobin ABG O2 Capacity Hgb O2 Saturation FiO2 Sodium Potassium Chloride Carbon Dioxide Anion Gap BUN Creatinine Est GFR ( Amer) Est GFR (Non-Af Amer) POC Glucose (mg/dL) 166 H Random Glucose Calcium Phosphorus Magnesium Total Bilirubin AST ALT Alkaline Phosphatase Troponin I Total Protein Albumin Globulin Albumin/Globulin Ratio Triglycerides Cholesterol LDL Cholesterol Direct HDL Cholesterol Urine Color Yellow Urine Appearance Turbid Urine pH 5.5 Ur Specific [place] 1.025 Urine Protein Negative Urine Glucose (UA) Negative Urine Ketones Negative Urine Blood Large H Urine Nitrate Positive H Urine Bilirubin Negative Urine Urobilinogen 0.2 Ur Leukocyte Esterase Small H Urine RBC 25 - 30 Urine WBC 1 - 3 Urine Bacteria Many Urine Opiates Screen Negative Urine Methadone Screen Negative Ur Barbiturates Screen Negative Ur Phencyclidine Scrn Negative Ur Amphetamines Screen Negative U Benzodiazepines Scrn Negative U Oth Cocaine Metabols Negative U Cannabinoids Screen Negative Assessment & Plan - Assessment and Plan (Free Text) Plan: Assessment Hypoxic and hypercapneic respiratory failure due to acute decompensated heart failure, R/O COPD exacerbation R/O HIV infection CAD S/P PCI chronic CHF DM COPD HTN dyslipidemia gout morbid obesity with BMI 41 lumbar radiculopathy Plan Follow up HIV virus load and will also get CD4 count follow up further plans of Cardiology and Pulmonary will monitor clinically
--- NOTE | 2018-05-10 14:55 | US ---
Date of service: 05/10/2018 HISTORY: scrotal region please SWELLING TECHNIQUE: Realtime sonography through the scrotum with color and doppler flow. COMPARISON: None Available. FINDINGS: RIGHT TESTICLE: Measures 3.1 x 2.4 x 1.9 cm. Normal echotexture and flow. RIGHT EPIDIDYMIS: Epididymal head measures 1.4 x 0.7 x 0.8 cm. Grossly unremarkable appearance with normal flow. LEFT TESTICLE: Measures 3.6 x 2.7 x 2.6 cm. Normal echotexture and flow. LEFT EPIDIDYMIS: Epididymal head measures 1.4 x 0.6 x 0.7 cm. Grossly unremarkable appearance with normal flow. HYDROCELE: There are small bilateral hydroceles. VARICOCELE: None. OTHER FINDINGS: There is diffuse subcutaneous edema in the scrotal wall. IMPRESSION: Diffuse scrotal wall edema. No drainable fluid collection. Small bilateral hydroceles. No evidence for testicular torsion or mass.
--- NOTE | 2018-05-10 16:43 | CARD ---
APPROVED REPORT Date of service: 05/10/2018 EXAM: Two-dimensional and M-mode echocardiogram with Doppler and color Doppler. INDICATION CHF EXACERBATION 2D DIMENSIONS RVDd4.7 (2.9-3.5cm)Left Atrium (2D)4.5 (1.6-4.0cm) IVSd1.5 (0.7-1.1cm)LVDd5.5 (3.9-5.9cm) PWd1.3 (0.7-1.1cm)LVDs4.5 (2.5-4.0cm) FS (%) 19.0 %LVEF (%)39.1 (>50%) M-Mode DIMENSIONS Aortic Root4.10 (2.2-3.7cm)Aortic Cusp Exc.2.20 (1.5-2.0cm) Aortic Valve AoV Peak Momjvtmx113.0cm/Osei Peak GR.13mmHg Mitral Valve MV E Bgvzxvty34.0cm/sMV A Nlygznoo36.7cm/sE/A ratio0.8 TDI Lateral E' Peak V8.77cm/sMedial E' Peak V6.82cm/sE/Lateral E'9.1 E/Medial E'11.7 Pulmonary Valve PV Peak Kadmlnmi70.7cm/sPV Peak Grad.2mmHg Tricuspid Valve TR Peak [id number]/sRAP [id number] Peak Gr.23mmHg [id number] LEFT VENTRICLE The left ventricle is normal size. There is mild concentric left ventricular hypertrophy. The systolic function is moderately to severely impaired. Septal hypokinesis Transmitral Doppler flow pattern is Grade I-abnormal relaxation pattern. RIGHT VENTRICLE The right ventricle is moderately dilated. There is normal right ventricular wall thickness. RV Systolic function is moderately reduced. ATRIA The left atrium is mildly dilated. The right atrium is mildly dilated. AORTIC VALVE The aortic valve is normal in structure. No aortic regurgitation is present. There is no aortic valvular stenosis. MITRAL VALVE The mitral valve is mildly thickened. Mitral regurgitation is mild. There is no mitral valve stenosis. TRICUSPID VALVE The tricuspid valve is normal in structure. There is moderate tricuspid regurgitation. There is mild pulmonary hypertension. PULMONIC VALVE There is moderate pulmonic valvular regurgitation. GREAT VESSELS The aortic root is mildly enlarged. The IVC is dilated. PERICARDIAL EFFUSION There is a trace loculated posterior pericardial effusion. <Conclusion> The left ventricle is normal size. There is mild concentric left ventricular hypertrophy. The systolic function is moderately to severely impaired. Septal hypokinesis Transmitral Doppler flow pattern is Grade I-abnormal relaxation pattern. Mitral regurgitation is mild. There is moderate tricuspid regurgitation. There is mild pulmonary hypertension. The aortic root is mildly enlarged.
[2018-05-10] MEDS ORDERED: Morphine 4 mg/ml ISec IVP ONE ×2 (18:50→19:00)
[2018-05-11] MEDS: Albuterol-Ipratrop 3 mg / 0.5 (3 ml) UD IH SCH ×4 (01:09→19:54)
[2018-05-11] MEDS: Insulin Regular 1 UNITS/0.01 ML ML SC SCH ×5 (02:28→22:24)
[2018-05-11 06:24] LABS: HEMOGLOBIN 8.2 g/dL (14.0-18.0); MEAN CELL VOLUME 73.4 fl (80.0-105.0); MEAN CORPUSCULAR HEMOGLOBIN 19.6 pg (25.0-35.0); MEAN CORPUSCULAR HGB CONC 26.7 g/dl (31.0-37.0); MEAN PLATELET VOLUME 9.3 fl (7.0-11.0); RBC 4.18 10^6/uL (3.5-6.1); RED CELL DISTRIBUTION WIDTH 21.9 % (11.5-14.5); WHITE BLOOD COUNT 12.1 10^3/ul (4.5-11.0)
[2018-05-11 06:41] LABS: TROPONIN I 0.03 ng/mL
[2018-05-11 06:49] LABS: ALB/GLOB RATIO 0.9 (1.1-1.8); ALBUMIN 3.3 g/dL (3.0-4.8); ALT/SGPT 26 U/L (7-56); AST/SGOT 31 U/L (17-59); BLOOD UREA NITROGEN 33 mg/dL (7-21); CALCIUM 8.3 mg/dL (8.4-10.5); GFR NON-AFRICAN AMERICAN > 60
[2018-05-11] MEDS ORDERED: Sod Polystyrene Sulf 15 gm/60 ml Susp PO ONE (08:44)
[2018-05-11 08:58] LABS: ARTERIAL BLOOD GAS HCO3 28.5 mmol/L (21-28); ARTERIAL BLOOD GAS HEMOGLOBIN 7.9 g/dL (11.7-17.4); ARTERIAL BLOOD GAS O2 CONTENT 10.3 ML/dl (15-23); ARTERIAL BLOOD GAS O2 SAT 93.8 % (95-98); ARTERIAL BLOOD GAS PCO2 68 mm/Hg (35-45); ARTERIAL BLOOD GAS PH 7.23 (7.35-7.45); ARTERIAL BLOOD GAS TCO2 30.6 mmol.L (22-28)
--- NOTE | 2018-05-11 11:35 | CP.PCM.PN ---
<Alejandro Barrios - Last Filed: 05/11/18 14:46> Subjective - Date & Time of Evaluation Date of Evaluation: 05/11/18 Time of Evaluation: 11:32 - Subjective Subjective: Alejandro Barrios PGY1 Progress Note for Dr. Murry Mr. Khan was examined at bedside this morning. He was drowsy, but able to answer all questions. He was AAOx3. He denied any acute events overnight. He denied any dizziness, shortness of breath, chest pain, abdominal pain, nausea, vomiting. PMD as per chart at [facility] contacted, stated pt has not been seen since 2016. They reported trying to contact him to schedule appointments which he does not attend. Awaiting fax of records from 2016. Objective - Vital Signs/Intake and Output Vital Signs (last 24 hours): Temp Pulse Resp BP Pulse Ox 97 F L 92 H 25 H 135/78 96 05/10/18 07:30 05/11/18 10:55 05/11/18 06:01 05/11/18 10:04 05/11/18 06:01 Intake and Output: 05/11/18 05/11/18 06:59 18:59 Intake Total 1320 Output Total 800 Balance 520 - Medications Medications: Current Medications Albuterol/Ipratropium (Duoneb 3 Mg/0.5 Mg (3 Ml) Ud) 3 ml IH [id number] [facility] Last Admin: 05/11/18 07:15 Dose: 3 ml Aspirin (Aspirin Chewable) 81 mg PO DAILY ED Last Admin: 05/11/18 09:59 Dose: 81 mg Dextrose (Dextrose 50% Inj) 0 ml IV STAT PRN; Protocol PRN Reason: Hypoglycemia Protocol Furosemide (Lasix) 60 mg IVP Q12 ED Last Admin: 05/11/18 10:04 Dose: 60 mg Heparin Sodium (Porcine) (Heparin) 5,000 units SC Q12 ED PRN Reason: Protocol Last Admin: 05/11/18 09:59 Dose: 5,000 units Insulin Human Regular (Humulin R) 0 units SC Q6H ED PRN Reason: Protocol Last Admin: 05/11/18 10:05 Dose: 1 u Methylprednisolone (Solu-Medrol) 60 mg IVP Q12 ED Last Admin: 05/11/18 10:05 Dose: 60 mg Pantoprazole Sodium (Protonix Inj) 40 mg IVP DAILY ED Last Admin: 05/11/18 09:58 Dose: 40 mg - Labs Labs: 05/11/18 05:30 05/11/18 05:30 PT 21.4 SECONDS (9.4-12.5) H 05/09/18 17:00 INR 1.85 05/09/18 17:00 APTT 30.9 Seconds (25.1-36.5) 05/09/18 17:00 - Constitutional Appears: No Acute Distress - Head Exam Head Exam: ATRAUMATIC, NORMOCEPHALIC - Eye Exam Eye Exam: EOMI, PERRL - Respiratory Exam Respiratory Exam: Rhonchi, Wheezes Additional comments: expiratory wheezes in b/l upper and lower lung cano - Cardiovascular Exam Cardiovascular Exam: REGULAR RHYTHM, +S1, +S2 - GI/Abdominal Exam GI & Abdominal Exam: Soft, Normal Bowel Sounds. absent: Distended, Firm, Tenderness - Exam Exam: Scrotal Swelling - Extremities Exam Extremities Exam: Pedal Edema Additional comments: pitting edema in b/l lower extremities - Neurological Exam Neurological Exam: Awake, Oriented x3 - Psychiatric Exam Psychiatric exam: Normal Affect, Normal Mood - Skin Additional comments: stasis changes, xerosis in b/l lower extremities Assessment and Plan - Assessment and Plan (Free Text) Assessment: 52 year old male with a PMHx of COPD, DM2, HTN, HLD, CHF, CAD w/ stent, lumbar radiculopathy, gout, brought by EMS for respiratory distress 2/2 CHF exacerbation likely due to home medication non-compliance. Plan: Respiratory Distress 2/2 CHF exacerbation - Cardiac cath at [facility] in 12/[address] Judge: EF 30% and LAD lesion 80%. Lifevest provided however patient non-compliant and no cardiology f/u - proBNP 2220 in ED - pt continues to wheeze - ECHO: mild concentric LVH, systolic function moderately impaired, septal hypokinesis, mild MR, moderate TR, mild pulmonary HTN, aortic root mildly enlarged - ABG 05/11: pCO2 68 from 57, pO2 66 from 115, pH 7.23 from 7.26 - CXR: moderate CHF, significant cardiomegaly - CT head: no active disease - restarted bipap - lasix 80mg IV stat given, monitor - continue lasix 60mg IV BID (hold parameters: SBP<100) - start advair BID - duonebs q6h ed - Head of bed 30 degrees - I/Os: 1320 input, 800 output - daily weights: 318 lb yesterday - Home meds (hold): coreg 12.5mg po bid, lasix 40mg po tid, aldactone 25mg po qd - Cardiology consulted, Dr. Suarez- no intervention at this time, continue current medication regimen - Pulm consulted, Dr. Alesha augustin appreciated HIV Antiviral Therapy - Patient's girlfriend brought home meds, including Combivir (lamivudine/ zidovudine) which he and pharmacy confirmed is not his medication - pt denies h/o HIV or STI, reports safe sex practices with 1 partner - pending HIV 4th gen and CD4 count as per ID - PMD at [facility] contacted, expecting records to be faxed - ID Consulted, Dr. Yaneli augustin appreciated Leukocytosis - WBC 12.1 today from 11.6 on admission - likely reactive - continue to monitor Suspect Arrythmia - home medication includes eliquis 5mg po bid - repeat EKG 05/10: sinus arrythmia with pulmonary disease, prolonged QT - PMD at [facility] contacted, expecting records to be faxed Scrotal Edema - likely secondary to CHF, anasarca, pt reports longstanding history - US testes: scrotal wall edema, small b/l hydroceles, no torsion or mass - lasix 80mg IV once given - monitor CAD - stent placed in 2014 - Cardiac cath at [facility] in 12/[address] Judge: EF 30% and LAD lesion 80%. Lifevest provided however patient non-compliant and no cardiology f/u - Trop negative x2 - EKG 05/10: sinus arrythmia with pulmonary disease, prolonged QT - Cardiology consulted, Dr. Suarez- no intervention at this time, continue current medication regimen COPD - smokes 2 packs per day - home medications: ventolin and flovent, reports noncompliance - pt continues to wheeze - restarted bipap overnight and this morning, monitor breathing - start advair BID - duoneb q6h ed - Pulm Consulted, Dr. Magaly augustin appreciated DM2 - home medications: metformin 500mg po bid, reports noncompliance - accucheck q6h, RISS low dose - FSG 05/10 to 05/11: 255, 156, 190 - f/u HbA1c - UA: small leukocyte HTN - home meds include lisinopril 2.5mg po qd, cardizem 30mg po qid, reports noncompliance - BP well controlled HLD - home medication: lipitor 20mg po qd, reports noncompliance - lipid panel 05/10: TG 66, Cholesterol 86, LDL 44, HDL 24 Microcytic Anemia - likely chronic/multifactorial - Hb 05/11 8.2 from 8.8 (baseline per chart ~10.5 from 12/2017) - Iron workup 05/10: Fe 10 (low), TIBC 171 (low), %sat 6 (low), ferritin 16.8 - pending vitamin b12, folate level - f/u FOBT - f/u outpatient Prophylaxis - SCDs contraindicated - edema b/l - advance bite size diet - GI prophylaxis not indicated Case reviewed and discussed with Dr. Murry <Jamel Murry - Last Filed: 05/12/18 17:25> Objective - Vital Signs/Intake and Output Vital Signs (last 24 hours): Temp Pulse Resp BP Pulse Ox 97.3 F L 99 H 20 164/100 H 96 05/12/18 06:01 05/12/18 06:01 05/12/18 06:01 05/12/18 06:01 05/12/18 06:01 Intake and Output: 05/12/18 05/12/18 06:59 18:59 Intake Total 620 Output Total 1200 Balance -580 - Medications Medications: Current Medications Albuterol/Ipratropium (Duoneb 3 Mg/0.5 Mg (3 Ml) Ud) 3 ml IH [id number] [facility] Last Admin: 05/12/18 07:17 Dose: 3 ml Arformoterol Tartrate (Brovana) 15 mcg IH [id number] [facility] Last Admin: 05/12/18 07:17 Dose: 15 mcg Aspirin (Aspirin Chewable) 81 mg PO DAILY [facility] Last Admin: 05/11/18 09:59 Dose: 81 mg Budesonide (Pulmicort Respules) 0.5 mg IH [id number] [facility] Last Admin: 05/12/18 07:17 Dose: 0.5 mg Dextrose (Dextrose 50% Inj) 0 ml IV STAT PRN; Protocol PRN Reason: Hypoglycemia Protocol Furosemide (Lasix) 60 mg IVP Q12 [facility] Last Admin: 05/11/18 21:34 Dose: 60 mg Heparin Sodium (Porcine) (Heparin) 5,000 units SC Q12 ED PRN Reason: Protocol Last Admin: 05/11/18 21:05 Dose: 5,000 units Ceftriaxone Sodium (Rocephin 1 Gram Ivpb) 1 gm in 100 mls @ 100 mls/hr IVPB DAILY ED PRN Reason: Protocol Last Admin: 05/11/18 12:57 Dose: 100 mls/hr Insulin Human Regular (Humulin R) 0 units SC ACHS ED PRN Reason: Protocol Last Admin: 05/11/18 22:24 Dose: Not Given Methylprednisolone (Solu-Medrol) 60 mg IVP Q12 [facility] Last Admin: 05/11/18 21:33 Dose: 60 mg Ondansetron HCl (Zofran Tab) 4 mg PO Q8H PRN PRN Reason: Nausea/Vomiting Pantoprazole Sodium (Protonix Ec Tab) 40 mg PO DAILY ED - Labs Labs: 05/12/18 05:40 05/12/18 05:40 PT 21.4 SECONDS (9.4-12.5) H 05/09/18 17:00 INR 1.85 05/09/18 17:00 APTT 30.9 Seconds (25.1-36.5) 05/09/18 17:00 Attending/Attestation - Attestation I have personally seen and examined this patient.: Yes I have fully participated in the care of the patient.: Yes I have reviewed all pertinent clinical information, including history, physical exam and plan: Yes Notes (Text): 05/12/18 07:55 Attending note; Patient seen and examined with resident in ICU. on bipap now. Patient is a 52 year old male with a PMHx of COPD, DM2, HTN, HLD, CHF, CAD , lumbar radiculopathy, gout, brought by EMS for respiratory distress and progressive worsening of generalized body swelling. Acute systolic CHF exacerbation; likely due to home medication non-compliance. Started on IV Lasix. continue BiPAP as needed. Monitor input and output. Urine output is slowly increasing. History of coronary artery disease and stent placement. Patient used to wear LifeVest for a few weeks in January 2018. Patient was noncompliance with medication since then. Cardiology evaluation appreciated. Echocardiogram showed ejection fraction of 39 % with mild LVH. History of smoking; pulmonary evaluation appreciated. Continue DuoNeb, Solu-Medrol and Symbicort. Needs outpatient sleep study. Currently continue BiPAP. Generalized anasarca; secondary to heart failure. There was a question about the diagnosis of HIV. Because of Combivir medication found mixed with his meds. Found out today that Combivir was not his prescription. HIV is negative. CD4 count is 727. Diabetes; continue regular insulin sliding scale. Anemia; and deficiency anemia .needs GI workup after stabilization. currently no active bleeding. Scrotal edema; secondary to CHF. Ultrasound showed hydrocele. Urology evaluation requested. Prognosis is poor. Monitor closely in ICU. Case discussed with circus roustabout in detail. 05/12/18 16:45 05/12/18 17:24
--- NOTE | 2018-05-11 11:39 | CP.PCM.PN ---
Subjective - Date & Time of Evaluation Date of Evaluation: 05/11/18 Time of Evaluation: 10:05 - Subjective Subjective: Patient continues to need BiPAP, sleepy but easily arousable and answers questions appropriately, no fevers, no cough but still with shortness of breath at rest. Objective - Vital Signs/Intake and Output Vital Signs (last 24 hours): Temp Pulse Resp BP Pulse Ox 97 F L 100 H 25 H 111/72 96 05/10/18 07:30 05/11/18 06:01 05/11/18 06:01 05/11/18 06:01 05/11/18 06:01 Intake and Output: 05/10/18 05/11/18 18:59 06:59 Intake Total 1320 Output Total 600 Balance 720 - Medications Medications: Current Medications Albuterol/Ipratropium (Duoneb 3 Mg/0.5 Mg (3 Ml) Ud) 3 ml IH [id number] [facility] Last Admin: 05/11/18 01:09 Dose: 3 ml Aspirin (Aspirin Chewable) 81 mg PO DAILY [facility] Last Admin: 05/10/18 09:02 Dose: 81 mg Dextrose (Dextrose 50% Inj) 0 ml IV STAT PRN; Protocol PRN Reason: Hypoglycemia Protocol Furosemide (Lasix) 60 mg IVP Q12 [facility] Last Admin: 05/10/18 22:15 Dose: 60 mg Heparin Sodium (Porcine) (Heparin) 5,000 units SC Q12 [facility] PRN Reason: Protocol Last Admin: 05/10/18 22:15 Dose: 5,000 units Insulin Human Regular (Humulin R) 0 units SC Q6H [facility] PRN Reason: Protocol Last Admin: 05/11/18 02:28 Dose: Not Given Methylprednisolone (Solu-Medrol) 60 mg IVP Q12 [facility] Last Admin: 05/10/18 22:15 Dose: 60 mg Pantoprazole Sodium (Protonix Inj) 40 mg IVP DAILY [facility] Last Admin: 05/10/18 11:20 Dose: 40 mg - Labs Labs: 05/11/18 05:30 PT 21.4 SECONDS (9.4-12.5) H 05/09/18 17:00 INR 1.85 05/09/18 17:00 APTT 30.9 Seconds (25.1-36.5) 05/09/18 17:00 - Constitutional Appears: Chronically Ill - Head Exam Head Exam: NORMAL INSPECTION - Neck Exam Neck Exam: absent: Meningismus - Respiratory Exam Respiratory Exam: Decreased Breath Sounds, Wheezes - Cardiovascular Exam Cardiovascular Exam: +S1, +S2 - GI/Abdominal Exam GI & Abdominal Exam: Soft. absent: Tenderness - Extremities Exam Additional comments: bilateral lower extremity pitting edema, +3 Assessment and Plan - Assessment and Plan (Free Text) Plan: Assessment Hypoxic and hypercapneic respiratory failure due to acute decompensated heart failure, with possible COPD exacerbation R/O HIV infection CAD S/P PCI chronic CHF DM COPD HTN dyslipidemia gout morbid obesity with BMI 41 lumbar radiculopathy Plan Follow up HIV virus load and CD4 count - hold ART for now (had a bottle of Combivir with him but no other ART so will confirm first) follow up further plans of Cardiology and Pulmonary - patient on BiPAP, bronchodilators and systemic steroids will continue to monitor clinically
--- NOTE | 2018-05-11 12:06 | CP.PCM.CON ---
History of Present Illness - History of Present Illness History of Present Illness: PULMONARY CONSULT NOTE HPI Patient is 52yo male with PMHx ?HIV, CHF systolic, COPD, active smoker, morbid obesity, ?CHARAN, presented to MICU with hypercapnic resp failure, COPD exacerbation and CHF exacerbation. Pt was briefly on BIPAP, improved mental status, subsequently taken off BIPAP. Patient currently AAOx3, in NAD, answering questions appropriately Pt denies any major complaints Labs, imaging, chart reviewed PMhx as above PShx as above Meds as per EMR FHx [place] Social smokes 1pk per day, denies etoh, drug use Review of Systems - Review of Systems Review of Systems: as per HPI Past Patient History - Past Social History Smoking Status: Unknown If Ever Smoked - CARDIAC Hx Cardiac Disorders: Yes Hx Congestive Heart Failure: Yes - PULMONARY Hx Respiratory Disorders: Yes - MUSCULOSKELETAL/RHEUMATOLOGICAL Hx Falls: Yes - PSYCHIATRIC Hx Substance Use: No - SURGICAL HISTORY Other/Comment: ABDOMINAL SURGERY Meds Allergies/Adverse Reactions: Allergies Allergy/AdvReac Type Severity Reaction Status Date / Time Unobtainable Allergy Verified 05/09/18 16:59 - Medications Medications: Current Medications Albuterol/Ipratropium (Duoneb 3 Mg/0.5 Mg (3 Ml) Ud) 3 ml IH [id number] [facility] Last Admin: 05/11/18 07:15 Dose: 3 ml Aspirin (Aspirin Chewable) 81 mg PO DAILY [facility] Last Admin: 05/11/18 09:59 Dose: 81 mg Dextrose (Dextrose 50% Inj) 0 ml IV STAT PRN; Protocol PRN Reason: Hypoglycemia Protocol Furosemide (Lasix) 60 mg IVP Q12 [facility] Last Admin: 05/11/18 10:04 Dose: 60 mg Heparin Sodium (Porcine) (Heparin) 5,000 units SC Q12 [facility] PRN Reason: Protocol Last Admin: 05/11/18 09:59 Dose: 5,000 units Insulin Human Regular (Humulin R) 0 units SC Q6H [facility] PRN Reason: Protocol Last Admin: 05/11/18 10:05 Dose: 1 u Methylprednisolone (Solu-Medrol) 60 mg IVP Q12 [facility] Last Admin: 05/11/18 10:05 Dose: 60 mg Pantoprazole Sodium (Protonix Inj) 40 mg IVP DAILY [facility] Last Admin: 05/11/18 09:58 Dose: 40 mg Physical Exam - Constitutional Appears: Non-toxic, No Acute Distress - Head Exam Head Exam: NORMAL INSPECTION - Eye Exam Eye Exam: Normal appearance - ENT Exam ENT Exam: Mucous Membranes Moist - Neck Exam Neck exam: Positive for: Normal Inspection - Respiratory Exam Respiratory Exam: Wheezes, NORMAL BREATHING PATTERN - Cardiovascular Exam Cardiovascular Exam: REGULAR RHYTHM, +S1, +S2 - GI/Abdominal Exam GI & Abdominal Exam: Normal Bowel Sounds, Soft - Extremities Exam Extremities exam: Positive for: pedal edema - Neurological Exam Neurological exam: Alert, Oriented x3 Results - Vital Signs Recent Vital Signs: Last Vital Signs Temp 97 F L 05/10/18 07:30 Pulse 92 H 05/11/18 10:55 Resp 25 H 05/11/18 06:01 BP 135/78 05/11/18 10:04 Pulse Ox 96 05/11/18 06:01 - Labs Result Diagrams: 05/11/18 05:30 05/11/18 05:30 Labs: Laboratory Results - last 24 hr 05/10/18 05/10/18 05/10/18 06:00 06:00 17:16 WBC RBC Hgb Hct MCV MCH MCHC RDW Plt Count MPV pCO2 pO2 HCO3 ABG pH ABG Total CO2 ABG O2 Saturation ABG O2 Content ABG Base Excess ABG Hemoglobin ABG Carboxyhemoglobin POC ABG HHb (Measured) ABG Methemoglobin ABG O2 Capacity Hgb O2 Saturation FiO2 Sodium Potassium Chloride Carbon Dioxide Anion Gap BUN Creatinine Est GFR ( Amer) Est GFR (Non-Af Amer) POC Glucose (mg/dL) 234 H Random Glucose Hemoglobin A1c 7.2 H Calcium Total Bilirubin AST ALT Alkaline Phosphatase Troponin I Total Protein Albumin Globulin Albumin/Globulin Ratio Procalcitonin 0.05 L 05/10/18 05/11/18 05/11/18 20:38 02:26 05:30 WBC 12.1 H RBC 4.18 Hgb 8.2 L Hct 30.7 L MCV 73.4 L MCH 19.6 L MCHC 26.7 L RDW 21.9 H Plt Count 298 MPV 9.3 pCO2 pO2 HCO3 ABG pH ABG Total CO2 ABG O2 Saturation ABG O2 Content ABG Base Excess ABG Hemoglobin ABG Carboxyhemoglobin POC ABG HHb (Measured) ABG Methemoglobin ABG O2 Capacity Hgb O2 Saturation FiO2 Sodium Potassium Chloride Carbon Dioxide Anion Gap BUN Creatinine Est GFR ( Amer) Est GFR (Non-Af Amer) POC Glucose (mg/dL) 255 H 166 H Random Glucose Hemoglobin A1c Calcium Total Bilirubin AST ALT Alkaline Phosphatase Troponin I Total Protein Albumin Globulin Albumin/Globulin Ratio Procalcitonin 05/11/18 05/11/18 05/11/18 05:30 08:20 08:50 WBC RBC Hgb Hct MCV MCH MCHC RDW Plt Count MPV pCO2 68 H pO2 66.0 L HCO3 28.5 H ABG pH 7.23 L ABG Total CO2 30.6 H ABG O2 Saturation 93.8 L ABG O2 Content 10.3 L ABG Base Excess 0.4 ABG Hemoglobin 7.9 L ABG Carboxyhemoglobin 2.0 H POC ABG HHb (Measured) 6.1 H ABG Methemoglobin 0.4 ABG O2 Capacity 11.0 L Hgb O2 Saturation 91.5 L FiO2 32.0 Sodium 142 Potassium 5.2 H Chloride 105 Carbon Dioxide 28 Anion Gap 15 BUN 33 H Creatinine 1.2 Est GFR ( Amer) > 60 Est GFR (Non-Af Amer) > 60 POC Glucose (mg/dL) 190 H Random Glucose 163 H Hemoglobin A1c Calcium 8.3 L Total Bilirubin 0.6 AST 31 ALT 26 Alkaline Phosphatase 271 H Troponin I 0.03 D Total Protein 7.0 Albumin 3.3 Globulin 3.7 Albumin/Globulin Ratio 0.9 L Procalcitonin Assessment & Plan - Assessment and Plan (Free Text) Assessment: 52yo male with PMHx COPD, CHF systolic, Obesity, ?HIV, ?CHARAN admitted with hypercapnia, CHF exacerbation COPD exacerbation Hypercapnia Resp Acidosis CHF exacerbation - patient is currently AAOx3, NAD, answers questions appropriately - ABG reviewed, acute resp acidosis, would use BIPAP as needed, monitor resp status closely - Cont with Solumedrol 40mg IV q12hr - Duonebs PRN - would start Symbicort 160/4.5 BID - will need outpatient PFTs - will need outpatient sleep study, likely has CHARAN - Lasix IV diuresis, CHF management as per cardiology
[2018-05-11] MEDS: cefTRIAXone 1 gm 1 GM/100 ML BAG IVPB SCH (12:57)
--- NOTE | 2018-05-11 13:59 | PN ---
Copied To: Beny Salgado MD Attending MD: Beny Salgado MD DATE: 05/11/2018 SUBJECTIVE: Patient is currently on BiPAP. He denies any retrosternal chest pain. PHYSICAL EXAMINATION: VITAL SIGNS: Blood pressure 135/78, heart rate 92, respirations 35, temperature 98.7. HEENT: Facial edema. CHEST: Bilateral rhonchi. HEART: S1, S2 regular. EXTREMITIES: A 2+ pitting edema. LABORATORY DATA: Today's SMA-7: Sodium 142, potassium 5.2, chloride 105, CO2 28, glucose 163, BUN 33, creatinine 1.2. Today's hemoglobin and hematocrit 8.2 and 30.7, white count 12.1, platelet count 295,000. Head CT scan without contrast, no acute findings. Testicular duplex study revealed diffuse scrotal wall edema, no drainable fluid collection, small bilateral hydrocele. Echocardiography study revealed mild concentric LVH posteriorly with [id number] impaired systolic function with septal hypokinesis, moderately impaired right ventricular systolic function and mild pulmonary hypertension. ASSESSMENT: 1. Biventricular failure. 2. Human immunodeficiency virus positive. 3. Coronary artery disease with mild left anterior descending artery disease. 4. Anemia. 5. Mild pulmonary hypertension. 6. Consider underlying sleep apnea. 7. Noncompliance. RECOMMENDATIONS: Case was discussed with the concrete vibrator operator. The patient will be , subcutaneous heparin 5000 units every 12 hours, Lasix 60 mg intravenously twice a day, Solu-Medrol 60 mg intravenously every 12 hours. I did request venous Doppler of the lower extremities. The patient is not a suitable candidate for IV replacement or percutaneous coronary intervention in view of extreme noncompliance. Beny Salgado MD
--- NOTE | 2018-05-11 16:26 | US ---
HISTORY: Leg pain and swelling. Evaluate for DVT PHYSICIAN(S): Louis Ramirez MD. TECHNIQUE: Duplex sonography and color-flow Doppler with graded compression were used to evaluate the deep venous systems of both lower extremities. The exam is very limited by body habitus and edema. The tibial veins are not well seen FINDINGS: The visualized deep venous systems of both lower extremities are sonographically normal and compressible. Normal wave forms and augmentation are seen. There is no sonographic evidence for deep venous thrombosis in the visualized segments of both lower extremities. IMPRESSION: No sonographic evidence for deep venous thrombosis in the visualized segments of both lower extremities. Very limited study.
[2018-05-11 18:04] LABS: % CD4 (T HELPER CELL) 51 Percent (30-61); % CD8 (SUPPRESSOR T CELL) 28 Percent (12-42); ABSOLUTE CD4 CELLS 727 Cells/mcL (490-1740); ABSOLUTE CD8 CELLS 407 Cells/mcL (180-1170); ABSOLUTE LYMPHOCYTES 1432 Cells/mcL (850-3900); HELPER/SUPPRESSOR RATIO 1.79 Ratio (0.86-5.00)
[2018-05-11] MEDS: Arformoterol 15 mcg/2 ml Inh Sol IH SCH (19:54)
[2018-05-11] MEDS: Budesonide 0.5 mg/2 ml Inhal Susp UD IH SCH (19:54)
[2018-05-12] MEDS: Albuterol-Ipratrop 3 mg / 0.5 (3 ml) UD IH SCH ×5 (00:20→19:38)
[2018-05-12 06:30] LABS: MEAN CELL VOLUME 72.1 fl (80.0-105.0); MEAN CORPUSCULAR HEMOGLOBIN 19.6 pg (25.0-35.0); MEAN CORPUSCULAR HGB CONC 27.2 g/dl (31.0-37.0); MEAN PLATELET VOLUME 9.6 fl (7.0-11.0); RBC 4.08 10^6/uL (3.5-6.1); RED CELL DISTRIBUTION WIDTH 21.7 % (11.5-14.5); WHITE BLOOD COUNT 9.9 10^3/ul (4.5-11.0)
[2018-05-12 07:03] LABS: ALB/GLOB RATIO 0.9 (1.1-1.8); ALBUMIN 3.1 g/dL (3.0-4.8); ALT/SGPT 27 U/L (7-56); AST/SGOT 25 U/L (17-59); BLOOD UREA NITROGEN 43 mg/dL (7-21); CALCIUM 8.2 mg/dL (8.4-10.5); GFR NON-AFRICAN AMERICAN 58
[2018-05-12] MEDS: Budesonide 0.5 mg/2 ml Inhal Susp UD IH SCH ×2 (07:17→19:38)
[2018-05-12] MEDS: Arformoterol 15 mcg/2 ml Inh Sol IH SCH ×2 (07:17→19:38)
[2018-05-12] MEDS: Insulin Regular 1 UNITS/0.01 ML ML SC SCH ×3 (08:20→17:31)
[2018-05-12] MEDS: cefTRIAXone 1 gm 1 GM/100 ML BAG IVPB SCH (10:20)
[2018-05-12] MEDS: Pantoprazole 40 mg EC Tab PO SCH (10:25)
[2018-05-12 11:31] LABS: ARTERIAL BLOOD GAS HCO3 31.5 mmol/L (21-28); ARTERIAL BLOOD GAS HEMOGLOBIN 8.2 g/dL (11.7-17.4); ARTERIAL BLOOD GAS O2 CAPACITY 11.2 mL/dl (16-24); ARTERIAL BLOOD GAS O2 CONTENT 10.7 ML/dl (15-23); ARTERIAL BLOOD GAS O2 SAT 95.6 % (95-98); ARTERIAL BLOOD GAS PCO2 57 mm/Hg (35-45); ARTERIAL BLOOD GAS PH 7.35 (7.35-7.45); ARTERIAL BLOOD GAS TCO2 33.2 mmol.L (22-28)
--- NOTE | 2018-05-12 12:03 | CP.PCM.PN ---
<Alejandro Barrios - Last Filed: 05/12/18 14:58> Subjective - Date & Time of Evaluation Date of Evaluation: 05/12/18 Time of Evaluation: 11:56 - Subjective Subjective: Alejandro Barrios PGY1 Progress Note for Dr. Murry Mr. Khan was examined at bedside this morning. He was drowsy but arousable. He was AAOx3 today. He complained of some nausea and one episode of non bloody non bilious vomit yesterday, associated with abdominal pain. He denied any dizziness , headache, shortness of breath, chest pain, or dysuria. Upon asking patient whom his family/friend contact is, he said his mother, Kate Khan, but was not able to give her phone number at the time. He could not provide further information about his medical history. Objective - Vital Signs/Intake and Output Vital Signs (last 24 hours): Temp Pulse Resp BP Pulse Ox 97.3 F L 99 H 20 177/109 H 96 05/12/18 06:01 05/12/18 06:01 05/12/18 06:01 05/12/18 10:20 05/12/18 06:01 Intake and Output: 05/12/18 05/12/18 06:59 18:59 Intake Total 620 Output Total 1200 Balance -580 - Medications Medications: Current Medications Albuterol/Ipratropium (Duoneb 3 Mg/0.5 Mg (3 Ml) Ud) 3 ml IH [id number] [facility] Last Admin: 05/12/18 07:17 Dose: 3 ml Arformoterol Tartrate (Brovana) 15 mcg IH [id number] [facility] Last Admin: 05/12/18 07:17 Dose: 15 mcg Aspirin (Aspirin Chewable) 81 mg PO DAILY [facility] Last Admin: 05/12/18 10:24 Dose: 81 mg Budesonide (Pulmicort Respules) 0.5 mg IH [id number] [facility] Last Admin: 05/12/18 07:17 Dose: 0.5 mg Carvedilol (Coreg) 12.5 mg PO BID [facility] Dextrose (Dextrose 50% Inj) 0 ml IV STAT PRN; Protocol PRN Reason: Hypoglycemia Protocol Furosemide (Lasix) 60 mg IVP Q12 [facility] Last Admin: 05/12/18 10:20 Dose: 60 mg Heparin Sodium (Porcine) (Heparin) 5,000 units SC Q12 [facility] PRN Reason: Protocol Last Admin: 05/12/18 10:25 Dose: 5,000 units Ceftriaxone Sodium (Rocephin 1 Gram Ivpb) 1 gm in 100 mls @ 100 mls/hr IVPB DAILY [facility] PRN Reason: Protocol Last Admin: 05/12/18 10:20 Dose: 100 mls/hr Insulin Human Regular (Humulin R) 0 units SC ACHS [facility] PRN Reason: Protocol Last Admin: 05/12/18 08:20 Dose: 2 unit Methylprednisolone (Solu-Medrol) 60 mg IVP Q12 [facility] Last Admin: 05/12/18 10:24 Dose: 60 mg Ondansetron HCl (Zofran Tab) 4 mg PO Q8H PRN PRN Reason: Nausea/Vomiting Pantoprazole Sodium (Protonix Ec Tab) 40 mg PO DAILY [facility] Last Admin: 05/12/18 10:25 Dose: 40 mg Spironolactone (Aldactone) 25 mg PO DAILY [facility] - Labs Labs: 05/12/18 05:40 05/12/18 05:40 PT 21.4 SECONDS (9.4-12.5) H 05/09/18 17:00 INR 1.85 05/09/18 17:00 APTT 30.9 Seconds (25.1-36.5) 05/09/18 17:00 - Constitutional Appears: In Acute Distress - Head Exam Head Exam: ATRAUMATIC, NORMOCEPHALIC - Eye Exam Eye Exam: EOMI, PERRL - ENT Exam ENT Exam: Mucous Membranes Dry - Respiratory Exam Respiratory Exam: Wheezes Additional comments: expiratory wheezes in b/l upper and lower lung cano - Cardiovascular Exam Cardiovascular Exam: REGULAR RHYTHM, +S1, +S2 - GI/Abdominal Exam GI & Abdominal Exam: Soft, Tenderness, Normal Bowel Sounds Additional comments: tenderness to palpation of right abdomen - Exam Exam: Scrotal Swelling - Extremities Exam Extremities Exam: Pedal Edema - Neurological Exam Neurological Exam: Awake, Oriented x3 - Psychiatric Exam Psychiatric exam: Depressed Assessment and Plan - Assessment and Plan (Free Text) Assessment: 52 year old male with a PMHx of COPD, DM2, HTN, HLD, CHF, CAD w/ stent, lumbar radiculopathy, gout, brought by EMS for respiratory distress 2/2 CHF exacerbation likely due to home medication non-compliance. Plan: Respiratory Distress 2/2 CHF exacerbation - Cardiac cath at [facility] in 12/[address] Judge: EF 30% and LAD lesion 80%. Lifevest provided however patient non-compliant and no cardiology f/u - proBNP 2220 in ED - pt continues to wheeze - ECHO: mild concentric LVH, systolic function moderately impaired, septal hypokinesis, mild MR, moderate TR, mild pulmonary HTN, aortic root mildly enlarged - ABG 05/12 : pCO2 57 from 68, pO2 71 from 66, pH 7.35 from 7.23 - CXR: moderate CHF, significant cardiomegaly - CT head: no active disease - continue bipap - continue lasix 60mg IV BID (hold parameters: SBP<100) - continue solumedrol 60mg q12 - continue advair BID - duonebs q6h [facility] - Head of bed 30 degrees - nasal cannula 3L/min - I/Os: 1560 input, 1700 output - Home meds (hold): lasix 40mg po tid - Cardiology consulted, Dr. Suarez- no intervention at this time, continue current medication regimen - Pulm consulted, Dr. Eduardo - demetria appreciated - PT: recommend subacute rehab Medication non-compliance - pt non compliant with home medications and does not attend PMD appts - pt unable to communicate medical history - possible depression component - Social Work on board - Palliative care consulted, f/u recs - Psychiatry consulted, Dr. Heaton - f/u recs HIV Antiviral Therapy - Patient's girlfriend brought home meds, including Combivir (lamivudine/ zidovudine) which he and pharmacy confirmed is not his medication - pt denies h/o HIV or STI, reports safe sex practices with 1 partner - HIV non-reactive, CD4 747 - PMD at [facility] contacted, expecting records to be faxed - ID Consulted, Dr. Yaneli augustin appreciated HTN - BP 164/100 today - start coreg 12.5mg po bid, aldactone 25mg po qd - monitor Leukocytosis - WBC 9.9 today from 12.1 - resolved - continue to monitor Suspect Arrythmia - home medication includes eliquis 5mg po bid, held - repeat EKG 05/10: sinus arrythmia with pulmonary disease, prolonged QT - PMD at [facility] contacted, expecting records to be faxed Scrotal Edema - likely secondary to CHF, anasarca, pt reports longstanding history - US testes: scrotal wall edema, small b/l hydroceles, no torsion or mass - continue lasix 60mg IV BID - stable from yesterday, monitor CAD - stent placed in 2014 - Cardiac cath at [facility] in 12/[address] Judge: EF 30% and LAD lesion 80%. Lifevest provided however patient non-compliant and no cardiology f/u - Trop negative x2 - EKG 05/10: sinus arrythmia with pulmonary disease, prolonged QT - Cardiology consulted, Dr. Suarez- no intervention at this time, continue current medication regimen COPD - smokes 2 packs per day - home medications: ventolin and flovent, reports noncompliance - pt continues to wheeze - continue bipap, monitor breathing - continue solumedrol 60mg q12 - continue advair BID - duoneb q6h ed - Pulm Consulted, Dr. Mckenzie - recs appreciated DM2 - home medications: metformin 500mg po bid, reports noncompliance - accucheck q6h, RISS low dose - FSG 05/10 to 05/11: 255, 156, 190 - f/u HbA1c - UA: small leukocyte HLD - home medication: lipitor 20mg po qd, reports noncompliance - lipid panel 05/10: TG 66, Cholesterol 86, LDL 44, HDL 24 Microcytic Anemia - likely chronic/multifactorial - Hb 05/11 8.0 from 8.2 (baseline per chart ~10.5 from 12/2017) - Iron workup 05/10: Fe 10 (low), TIBC 171 (low), %sat 6 (low), ferritin 16.8 - pending vitamin b12, folate level - f/u FOBT - f/u outpatient Prophylaxis - SCDs contraindicated - edema b/l - advance bite size diet - GI prophylaxis not indicated Case reviewed and discussed with Dr. Murry <Jamel Murry - Last Filed: 05/12/18 17:39> Objective - Vital Signs/Intake and Output Vital Signs (last 24 hours): Temp Pulse Resp BP Pulse Ox 98.4 F 97 H 20 167/109 H 96 05/12/18 12:00 05/12/18 14:00 05/12/18 12:00 05/12/18 12:41 05/12/18 06:01 Intake and Output: 05/12/18 05/12/18 06:59 18:59 Intake Total 620 100 Output Total 1200 Balance -580 100 - Medications Medications: Current Medications Albuterol/Ipratropium (Duoneb 3 Mg/0.5 Mg (3 Ml) Ud) 3 ml IH [id number] [facility] Last Admin: 05/12/18 13:14 Dose: 3 ml Arformoterol Tartrate (Brovana) 15 mcg IH [id number] [facility] Last Admin: 05/12/18 07:17 Dose: 15 mcg Aspirin (Aspirin Chewable) 81 mg PO DAILY [facility] Last Admin: 05/12/18 10:24 Dose: 81 mg Budesonide (Pulmicort Respules) 0.5 mg IH [id number] [facility] Last Admin: 05/12/18 07:17 Dose: 0.5 mg Carvedilol (Coreg) 12.5 mg PO BID [facility] Last Admin: 05/12/18 12:41 Dose: 12.5 mg Dextrose (Dextrose 50% Inj) 0 ml IV STAT PRN; Protocol PRN Reason: Hypoglycemia Protocol Furosemide (Lasix) 40 mg PO DAILY [facility] Heparin Sodium (Porcine) (Heparin) 5,000 units SC Q12 [facility] PRN Reason: Protocol Last Admin: 05/12/18 10:25 Dose: 5,000 units Ceftriaxone Sodium (Rocephin 1 Gram Ivpb) 1 gm in 100 mls @ 100 mls/hr IVPB DAILY [facility] PRN Reason: Protocol Stop: 05/15/18 10:59 Last Admin: 05/12/18 10:20 Dose: 100 mls/hr Insulin Human Regular (Humulin R) 0 units SC ACHS [facility] PRN Reason: Protocol Last Admin: 05/12/18 12:41 Dose: 1 unit Methylprednisolone (Solu-Medrol) 60 mg IVP Q12 [facility] Last Admin: 05/12/18 10:24 Dose: 60 mg Ondansetron HCl (Zofran Tab) 4 mg PO Q8H PRN PRN Reason: Nausea/Vomiting Pantoprazole Sodium (Protonix Ec Tab) 40 mg PO DAILY [facility] Last Admin: 05/12/18 10:25 Dose: 40 mg Spironolactone (Aldactone) 25 mg PO DAILY [facility] Last Admin: 05/12/18 12:42 Dose: 25 mg - Labs Labs: 05/12/18 05:40 05/12/18 05:40 PT 21.4 SECONDS (9.4-12.5) H 05/09/18 17:00 INR 1.85 05/09/18 17:00 APTT 30.9 Seconds (25.1-36.5) 05/09/18 17:00 Attending/Attestation - Attestation I have personally seen and examined this patient.: Yes I have fully participated in the care of the patient.: Yes I have reviewed all pertinent clinical information, including history, physical exam and plan: Yes Notes (Text): 05/12/18 17:25 Attending note; Patient seen and examined with resident in 262 bed 1. patient is more alert and awake. Denies any chest pain, shortness of breath. Currently on oxygen nasal cannula. Patient is a 52 year old male with a PMHx of COPD, DM2, HTN, HLD, CHF, CAD , lumbar radiculopathy, gout, brought by EMS for respiratory distress and progressive worsening of generalized body swelling. Acute systolic CHF exacerbation; likely due to home medication non-compliance. Started on IV Lasix. continue BiPAP at night. CHF is resolving slowly. History of coronary artery disease and stent placement. Patient used to wear LifeVest for a few weeks in January 2018. Patient was noncompliance with medication since then. Cardiology evaluation appreciated. Echocardiogram showed ejection fraction of 39 % with mild LVH. History of smoking and COPD;pulmonary evaluation appreciated. Continue DuoNeb, Solu-Medrol and Pulmicort. Needs outpatient sleep study. continue BiPAP. Generalized anasarca; secondary to heart failure. Diabetes; continue regular insulin sliding scale. Started on glipizide. Anemia; and deficiency anemia .needs GI workup after stabilization. currently no active bleeding. Started on by mouth iron. Scrotal edema; secondary to CHF. Ultrasound showed hydrocele. Urology evaluation requested. Patient refused to give information about his medical condition. Patient is educated to get healthcare proxy. Psychiatric evaluation requested to rule out depression. Super parAmante evaluation requested for healthcare proxy/power of family law attorney paperwork. Prognosis is poor secondary to noncompliance with follow-up. Upon discharge the patient will follow-up with PMD . Physical therapy evaluation requested. 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
--- NOTE | 2018-05-12 12:09 | CP.PCM.PN ---
Subjective - Date & Time of Evaluation Date of Evaluation: 05/12/18 Time of Evaluation: 10:15 - Subjective Subjective: Patient is a little more comfortable today, no fevers, not in distress. Objective - Vital Signs/Intake and Output Vital Signs (last 24 hours): Temp Pulse Resp BP Pulse Ox 97.3 F L 99 H 20 164/100 H 96 05/12/18 06:01 05/12/18 06:01 05/12/18 06:01 05/12/18 06:01 05/12/18 06:01 Intake and Output: 05/11/18 05/12/18 18:59 06:59 Intake Total 940 620 Output Total 500 1200 Balance 440 -580 - Medications Medications: Current Medications Albuterol/Ipratropium (Duoneb 3 Mg/0.5 Mg (3 Ml) Ud) 3 ml IH [id number] [facility] Last Admin: 05/12/18 01:06 Dose: Not Given Arformoterol Tartrate (Brovana) 15 mcg IH [id number] [facility] Last Admin: 05/11/18 19:54 Dose: 15 mcg Aspirin (Aspirin Chewable) 81 mg PO DAILY [facility] Last Admin: 05/11/18 09:59 Dose: 81 mg Budesonide (Pulmicort Respules) 0.5 mg IH [id number] [facility] Last Admin: 05/11/18 19:54 Dose: 0.5 mg Dextrose (Dextrose 50% Inj) 0 ml IV STAT PRN; Protocol PRN Reason: Hypoglycemia Protocol Furosemide (Lasix) 60 mg IVP Q12 [facility] Last Admin: 05/11/18 21:34 Dose: 60 mg Heparin Sodium (Porcine) (Heparin) 5,000 units SC Q12 [facility] PRN Reason: Protocol Last Admin: 05/11/18 21:05 Dose: 5,000 units Ceftriaxone Sodium (Rocephin 1 Gram Ivpb) 1 gm in 100 mls @ 100 mls/hr IVPB DAILY [facility] PRN Reason: Protocol Last Admin: 05/11/18 12:57 Dose: 100 mls/hr Insulin Human Regular (Humulin R) 0 units SC ACHS [facility] PRN Reason: Protocol Last Admin: 05/11/18 22:24 Dose: Not Given Methylprednisolone (Solu-Medrol) 60 mg IVP Q12 [facility] Last Admin: 05/11/18 21:33 Dose: 60 mg Pantoprazole Sodium (Protonix Ec Tab) 40 mg PO DAILY [facility] - Labs Labs: 05/12/18 05:40 05/11/18 05:30 PT 21.4 SECONDS (9.4-12.5) H 05/09/18 17:00 INR 1.85 05/09/18 17:00 APTT 30.9 Seconds (25.1-36.5) 05/09/18 17:00 - Constitutional Appears: Chronically Ill - Head Exam Head Exam: NORMAL INSPECTION - Respiratory Exam Respiratory Exam: Decreased Breath Sounds - Cardiovascular Exam Cardiovascular Exam: +S1, +S2 - GI/Abdominal Exam GI & Abdominal Exam: Soft. absent: Tenderness Assessment and Plan - Assessment and Plan (Free Text) Plan: Assessment Hypoxic and hypercapneic respiratory failure due to acute decompensated heart failure, with possible COPD exacerbation no evidence of HIV infection CAD S/P PCI chronic CHF DM COPD HTN dyslipidemia gout morbid obesity with BMI 41 lumbar radiculopathy Plan HIV virus load is not detected and CD4 count is normal follow up further plans of Cardiology and Pulmonary - patient on BiPAP, bronchodilators and systemic steroids will continue to monitor clinically
--- NOTE | 2018-05-12 16:52 | PN ---
Copied To: Beny Salgado MD Attending MD: Beny Salgado MD DATE: 05/12/2018 SUBJECTIVE: The patient denies chest pain. He is comfortable, on nasal O2. PHYSICAL EXAMINATION: VITAL SIGNS: Blood pressure 167/109, heart rate 90, temperature 98.4, and respirations 20. HEENT: Mild facial edema. CHEST: Bilateral rhonchi. HEART: S1 and S2, regular. EXTREMITIES: 2+ pitting edema. LABORATORY DATA: Hemoglobin and hematocrit 8 and 29.4, white count and platelet count are within normal limit. Today's SMA-7 is within normal limit except for the glucose of 179 and BUN of 43. Venous Doppler of the lower extremities, no sonographic evidence of DVT. ASSESSMENT: 1. Biventricular failure. 2. Human immunodeficiency virus positive. 3. Consider sleep apnea. 4. Morbid obesity. 5. Anemia. 6. Prerenal azotemia. 7. Mild pulmonary hypertension. 8. Mild left anterior descending disease. RECOMMENDATIONS: Continue aspirin 81 mg once a day, Coreg 12.5 mg twice a day, Aldactone 25 mg once a day. Change Lasix to 40 mg p.o. once a day. Continue IV Rocephin and IV Solu-Medrol. Beny Salgado MD
[2018-05-12] MEDS: Ferrous Sulfate 300 mg/5 mL Liq UD PO SCH (18:09)
[2018-05-12] MEDS: POLYETHYLENE GLYCOL 3350 17 GM/Dose PACKET PO SCH ×2 (18:09→18:16)
--- NOTE | 2018-05-12 19:53 | CON ---
Copied To: Jewel Zimmerman MD Attending MD: Jewel Zimmerman MD DATE: 05/11/2018 UROLOGY CONSULT REASON FOR ADMISSION: Scrotal swelling and voiding dysfunction. HISTORY OF PRESENT ILLNESS: Mr. hKan is a very pleasant 52-year-old gentleman, . He is in the hospital for management of respiratory failure. He was initially managed and he still has oxygen in place and he is being diuresed. From the Urology standpoint, we were consulted. Patient has a Lugo catheter in place and also has scrotal swelling and Urology was consulted for further recommendation. PAST MEDICAL AND SURGICAL HISTORY: As listed on the chart. The patient reports also from his end, no previous major problems voiding or with scrotal pain or discomfort. REVIEW OF SYSTEMS: As listed above. PHYSICAL EXAMINATION: GENERAL: A well-developed and well-nourished male, he is currently resting comfortably. He has oxygen in place. He is in a regular bed. ABDOMEN: Relatively soft. GENITOURINARY: He has normal male phallus without discharge. There is some penile edema and the Lugo catheter is in place, draining well clear yellow urine and his scrotum is bilaterally enlarged. See ultrasound listed below. LABORATORY DATA: Noted on the chart, BUN and creatinine. DIAGNOSES: 1. Voiding dysfunction. 2. Scrotal edema. 3. Penile edema. ASSESSMENT: In summary, at this point, we would recommend to continue the Lugo catheter, so the patient is more ambulatory and more fluid is off through his body. For the scrotal edema, through the ultrasound testicles looked relatively okay. Mostly, I would recommend elevation and then which can be assessed. There may be components of hydrocele, but there is not much that we would do in this current setting in this regard. PLAN: As follows: 1. Maintain Lugo, so he is more ambulatory and then a voiding trial. 2. Elevate the scrotum. 3. Diuresis has been done. Then, further plans will follow. Thank you for the Urology consult. Jewel Zimmerman MD
--- NOTE | 2018-05-12 21:24 | CON ---
Copied To: Florina Gilmore MD Attending MD: Florina Gilmore MD DATE: 05/12/2018 HISTORY OF PRESENT ILLNESS: In short, the patient is 52-year-old male with multiple medical issues presented to the emergency department for evaluation of shortness of breath. The patient was complaining of shortness of breath prior to coming to the hospital. As per medical team report, the patient was noncompliant with the medications. Psych consult was called for evaluation of possible depression. The patient was seen and examined, discussed with Dr. Murry. The patient was seen and examined. The patient presented to be apathetic, was not interested and disengaged into the conversation. The patient denied that he is feeling depressed. He was sarcastic about his statement. The patient denied that he ever been evaluated by psychiatrist in the past. Denied thoughts of harming himself or denied any wish to be . The patient reported that he does not hear any voices. Denied seeing things. VITAL SIGNS: Seems to be stable. Temperature 98.4, pulse is 91, blood pressure 144/90, respiration 20. MEDICATIONS: Reviewed. The patient is on DuoNeb, Brovana, aspirin, Pulmicort, Coreg, Rocephin, dextrose, Colace, Feosol, Lasix, Glucotrol, heparin, Humulin, Solu-Medrol, Protonix, MiraLax and Aldactone. LABORATORY DATA: Reviewed. WBC cells were elevated at 12.1 yesterday, but today it is trending down. Chemistry reviewed. Urinalysis reviewed. Leukocyte esterase small. Urine drug screen was negative for any substances. Microbiology is reviewed. MRSA not detected. No growth from the blood drawn. MENTAL STATUS EXAMINATION: The patient presented to be alert and oriented in self as well as place. Intermittent eye contact. Flat affect. Mood described as fine. Affect was constricted. Thought process concrete. Thought content, the patient denied feeling of hopelessness or helplessness, but presented to be disengaged and apathetic. Insight and judgment seems to be limited. Impulses are well controlled. IMPRESSION: Most likely the patient seems to be in delirium stage or rule out mood disorder due to general medical condition. PLAN: This designer writer does not see why the patient needs to be on any medication. The patient expressed no depressive symptoms. No suicidal ideation identified. This designer writer will sign off. This designer writer discussed case with Dr. Murry. Should you have any questions give me a call back. Thank you very much for letting me participate in the care of your patient. Florina Gilmore MD
[2018-05-13] MEDS: Insulin Regular 1 UNITS/0.01 ML ML SC SCH ×5 (00:49→22:00)
[2018-05-13] MEDS: Albuterol-Ipratrop 3 mg / 0.5 (3 ml) UD IH SCH ×4 (01:08→19:35)
[2018-05-13] MEDS ORDERED: Albuterol-Ipratrop 3 mg / 0.5 (3 ml) UD IH STA (05:11)
[2018-05-13 05:26] LABS: HEMOGLOBIN 8.4 g/dL (14.0-18.0); MEAN CORPUSCULAR HEMOGLOBIN 19.4 pg (25.0-35.0); MEAN CORPUSCULAR HGB CONC 27.3 g/dl (31.0-37.0); MEAN PLATELET VOLUME 9.4 fl (7.0-11.0); RBC 4.34 10^6/uL (3.5-6.1); RED CELL DISTRIBUTION WIDTH 21.6 % (11.5-14.5); WHITE BLOOD COUNT 10.6 10^3/ul (4.5-11.0)
[2018-05-13 05:34] LABS: ALB/GLOB RATIO 0.9 (1.1-1.8); ALBUMIN 3.3 g/dL (3.0-4.8); ALT/SGPT 26 U/L (7-56); AST/SGOT 32 U/L (17-59); BLOOD UREA NITROGEN 43 mg/dL (7-21); CALCIUM 8.5 mg/dL (8.4-10.5); GFR NON-AFRICAN AMERICAN > 60
[2018-05-13] MEDS: Arformoterol 15 mcg/2 ml Inh Sol IH SCH ×2 (07:12→19:35)
[2018-05-13] MEDS: Budesonide 0.5 mg/2 ml Inhal Susp UD IH SCH ×2 (07:12→19:35)
[2018-05-13] MEDS: Ferrous Sulfate 300 mg/5 mL Liq UD PO SCH ×3 (09:56→18:42)
[2018-05-13] MEDS: Pantoprazole 40 mg EC Tab PO SCH (09:56)
[2018-05-13] MEDS: POLYETHYLENE GLYCOL 3350 17 GM/Dose PACKET PO SCH (09:57)
[2018-05-13] MEDS: cefTRIAXone 1 gm 1 GM/100 ML BAG IVPB SCH (10:00)
--- NOTE | 2018-05-13 11:45 | PN ---
Copied To: Beny Salgado MD Attending MD: Beny Salgado MD DATE: 05/13/2018 SUBJECTIVE: I must clarify the fact that the patient carries diagnosis HIV positive was an error as it was built on the fact that antiviral medications were mentioned in his medication list. The patient himself was not cooperative in initial history taking. He is currently short of breath, on nasal O2. He denies any chest pain. PHYSICAL EXAMINATION: VITAL SIGNS: Blood pressure 178/110, heart rate 110, temperature 97.8, respiration 24. HEENT: Pale conjunctivae. CHEST: Diffuse bilateral rhonchi. HEART: S1 and S2 regular. ABDOMEN: Soft, extensive 1+ pitting edema. LABORATORY DATA: Hemoglobin and hematocrit are 8.4 and 30.8, white count and platelet count are within normal limit. Today's SMA-7 is within normal limits except for glucose 165 and BUN of 43. Stool occult blood is negative. Today's EKG revealed sinus rhythm, right bundle-branch block, low voltage EKG. The patient's O2 saturation on nasal O2 was 92%. ASSESSMENT: 1. Biventricular failure. 2. Sleep apnea. 3. Prerenal azotemia. 4. Uncontrolled diabetes mellitus. 5. The patient's most recent serology is positive for human immunodeficiency virus-1 antibody and negative for human immunodeficiency virus-2 antibody and reactive for human immunodeficiency virus-1 and 2 antigen antibody fourth generation. 6. Uncontrolled hypertension. RECOMMENDATIONS: Continue Aldactone 25 mg daily, aspirin 81 mg once a day, Coreg 12.5 mg twice a day, subcutaneous heparin 5000 units twice a day, Lasix 40 mg p.o. once a day, Solu-Medrol 60 mg intravenously every 12 hours. Obtain a portable chest x-ray and start clonidine at 0.2 mg twice a day with one dose now. Beny Salgado MD
--- NOTE | 2018-05-13 12:13 | RAD ---
Date of service: 05/13/2018 HISTORY: SOB COMPARISON: 05/10/2018 FINDINGS: LUNGS: No active pulmonary disease. PLEURA: No significant pleural effusion identified, no pneumothorax apparent. CARDIOVASCULAR: Moderate cardiomegaly. Severe vascular congestion OSSEOUS STRUCTURES: No significant abnormalities. VISUALIZED UPPER ABDOMEN: Normal. OTHER FINDINGS: None. IMPRESSION: Moderate cardiomegaly. Severe vascular congestion
--- NOTE | 2018-05-13 13:07 | CP.PCM.PN ---
<Alejandro Barrios - Last Filed: 05/13/18 15:34> Subjective - Date & Time of Evaluation Date of Evaluation: 05/13/18 Time of Evaluation: 13:01 - Subjective Subjective: Alejandro Barrios PGY1 Progress Note for Dr. Murry Mr. Khan was examined at bedside this morning. He reported some shortness of breath overnight. When asked regarding PMH, he refused to report it. He was asked regarding advanced directives, he reported wishing to be intubated but did not elaborate further. He denied any dizziness, chest pain, abdominal pain, nausea, vomiting, diarrhea. Objective - Vital Signs/Intake and Output Vital Signs (last 24 hours): Temp Pulse Resp BP Pulse Ox 97.8 F 115 H 24 178/110 H 95 05/13/18 06:00 05/13/18 12:35 05/13/18 06:00 05/13/18 10:56 05/13/18 06:00 Intake and Output: 05/13/18 05/13/18 06:59 18:59 Intake Total 360 Output Total 900 Balance -540 - Medications Medications: Current Medications Albuterol/Ipratropium (Duoneb 3 Mg/0.5 Mg (3 Ml) Ud) 3 ml IH [id number] [facility] Last Admin: 05/13/18 07:12 Dose: 3 ml Arformoterol Tartrate (Brovana) 15 mcg IH [id number] [facility] Last Admin: 05/13/18 07:12 Dose: 15 mcg Aspirin (Aspirin Chewable) 81 mg PO DAILY [facility] Last Admin: 05/13/18 09:56 Dose: 81 mg Budesonide (Pulmicort Respules) 0.5 mg IH [id number] [facility] Last Admin: 05/13/18 07:12 Dose: 0.5 mg Carvedilol (Coreg) 12.5 mg PO BID [facility] Last Admin: 05/13/18 09:56 Dose: 12.5 mg Cefpodoxime Proxetil (Vantin) 200 mg PO Q12 [facility] Stop: 05/15/18 10:59 Clonidine HCl (Catapres) 0.2 mg PO BID [facility] Last Admin: 05/13/18 10:56 Dose: 0.2 mg Dextrose (Dextrose 50% Inj) 0 ml IV STAT PRN; Protocol PRN Reason: Hypoglycemia Protocol Docusate Sodium (Colace) 100 mg PO TID [facility] Last Admin: 05/13/18 09:57 Dose: 100 mg Ferrous Sulfate (Feosol Liq) 300 mg PO TID [facility] Last Admin: 05/13/18 09:56 Dose: 300 mg Furosemide (Lasix) 40 mg PO DAILY [facility] Last Admin: 05/13/18 09:56 Dose: 40 mg Glipizide (Glucotrol) 5 mg PO ACB [facility] Last Admin: 05/13/18 08:57 Dose: 5 mg Heparin Sodium (Porcine) (Heparin) 5,000 units SC Q12 [facility] PRN Reason: Protocol Last Admin: 05/13/18 09:57 Dose: 5,000 units Insulin Human Regular (Humulin R) 0 units SC ACHS [facility] PRN Reason: Protocol Last Admin: 05/13/18 12:18 Dose: 2 unit Methylprednisolone (Solu-Medrol) 60 mg IVP Q12 [facility] Last Admin: 05/13/18 09:55 Dose: 60 mg Ondansetron HCl (Zofran Tab) 4 mg PO Q8H PRN PRN Reason: Nausea/Vomiting Pantoprazole Sodium (Protonix Ec Tab) 40 mg PO DAILY [facility] Last Admin: 05/13/18 09:56 Dose: 40 mg Polyethylene Glycol (Miralax) 17 gm PO DAILY [facility] Last Admin: 05/13/18 09:57 Dose: 17 gm Spironolactone (Aldactone) 25 mg PO DAILY [facility] Last Admin: 05/13/18 09:56 Dose: 25 mg - Labs Labs: 05/13/18 04:58 05/13/18 04:58 PT 21.4 SECONDS (9.4-12.5) H 05/09/18 17:00 INR 1.85 05/09/18 17:00 APTT 30.9 Seconds (25.1-36.5) 05/09/18 17:00 - Constitutional Appears: In Acute Distress - Head Exam Head Exam: ATRAUMATIC, NORMOCEPHALIC - Eye Exam Eye Exam: EOMI Pupil Exam: NORMAL ACCOMODATION - Respiratory Exam Respiratory Exam: Wheezes Additional comments: labored breathing expiratory wheezes b/l - GI/Abdominal Exam GI & Abdominal Exam: Soft, Normal Bowel Sounds. absent: Distended, Tenderness - Extremities Exam Extremities Exam: Pedal Edema Additional comments: pitting edema in b/l thighs - Neurological Exam Additional comments: drowsy, arousable - Skin Additional comments: stasis changes on b/l LE Assessment and Plan - Assessment and Plan (Free Text) Assessment: 52 year old male with a PMHx of COPD, DM2, HTN, HLD, CHF, CAD w/ stent, lumbar radiculopathy, gout, brought by EMS for respiratory distress 2/2 CHF exacerbation likely due to home medication non-compliance. Plan: Respiratory Distress 2/2 CHF exacerbation - Cardiac cath at [facility] in 12/[address] Judge: EF 30% and LAD lesion 80%. [employer] provided however patient non-compliant and no cardiology f/u - proBNP 2220 in ED - pt continues to wheeze, noncompliant with bipap - O2 sats: 93 to 95% - ECHO: mild concentric LVH, systolic function moderately impaired, septal hypokinesis, mild MR, moderate TR, mild pulmonary HTN, aortic root mildly enlarged - ABG 05/12 : pCO2 57 from 68, pO2 71 from 66, pH 7.35 from 7.23 - CXR: moderate CHF, significant cardiomegaly - CT head: no active disease - continue bipap - decrease lasix to 40mg IV BID (hold parameters: SBP<100) - continue solumedrol 60mg q12 - continue advair BID - duonebs q6h ed - Head of bed 30 degrees - nasal cannula 3L/min - I/Os: 1900 input, 3700 output - Cardiology consulted, Dr. Suarez- no intervention at this time, continue current medication regimen - Pulm consulted, Dr. Eduardo - recs appreciated - PT: recommend subacute rehab Medication non-compliance - pt non compliant with home medications and does not attend PMD appts - pt refusing to communicate medical history - Social Work on board - Palliative care consulted, f/u recs - Psychiatry consulted, Dr. Heaton - no further inpatient recs at this time HIV 1 ab positive - Patient's girlfriend brought home meds, including Combivir (lamivudine/ zidovudine) which he denied being his medication - HIV-1 ab positive, HIV-2 ab negative, HIV 4th gen positive - CD4 747 - PMD at [facility] contacted, expecting records to be faxed - consider holding therapy at this time, as patient is unreliable - ID Consulted, Dr. Yaneli augusitn appreciated HTN - BP 178/110 today - continue coreg 12.5mg po bid, aldactone 25mg po qd - monitor - Cardiology consulted, Dr. Grace augustin appreciated Leukocytosis - WBC 11.6 today - BCx negative x3 - continue rocephin day 3 - continue to monitor Suspect Arrythmia - home medication includes eliquis 5mg po bid, held - repeat EKG 05/10: sinus arrythmia with pulmonary disease, prolonged QT - PMD at [facility] contacted, expecting records to be faxed Scrotal Edema - likely secondary to CHF, anasarca, pt reports longstanding history - US testes: scrotal wall edema, small b/l hydroceles, no torsion or mass - decrease lasix to 40mg IV BID - elevate testes, as per Uro - Urology Consulted: Dr. Raghav augustin appreciated CAD - stent placed in 2014 - Cardiac cath at [facility] in 12/[address] Judge: EF 30% and LAD lesion 80%. [employer] provided however patient non-compliant and no cardiology f/u - Trop negative x2 - EKG 05/10: sinus arrythmia with pulmonary disease, prolonged QT - Cardiology consulted, Dr. Suarez- no intervention at this time, continue current medication regimen COPD - smokes 2 packs per day - home medications: ventolin and flovent, reports noncompliance - pt continues to wheeze, noncompliant with bipap - continue bipap, monitor breathing - continue solumedrol 60mg q12 - continue advair BID - duoneb q6h ed - Pulm Consulted, Dr. Magaly augustin appreciated DM2 - home medications: metformin 500mg po bid, reports noncompliance - accucheck q6h, RISS low dose - FSG 05/12 to 05/13: 193, 300, 202, 171, 228 - HbA1c 7.2 - UA: small leukocyte HLD - home medication: lipitor 20mg po qd, reports noncompliance - lipid panel 05/10: TG 66, Cholesterol 86, LDL 44, HDL 24 Microcytic Anemia - likely chronic/multifactorial - Hb 05/13 8.4 from 30.8 (baseline per chart ~10.5 from 12/2017) - Iron workup 05/10: Fe 10 (low), TIBC 171 (low), %sat 6 (low), ferritin 16.8 - vitamin b12 >1000, folate 5.9 level - f/u FOBT - f/u outpatient Prophylaxis - SCDs contraindicated - edema b/l - advance bite size diet - GI prophylaxis not indicated Case reviewed and discussed with Dr. Murry <Jamel Murry - Last Filed: 05/23/18 13:36> Objective - Vital Signs/Intake and Output Vital Signs (last 24 hours): Temp Pulse Resp BP Pulse Ox 99.3 F 97 H 18 116/69 95 05/23/18 12:00 05/23/18 12:00 05/23/18 12:00 05/23/18 12:00 05/23/18 10:00 Intake and Output: 05/23/18 05/23/18 06:59 18:59 Intake Total 2465 100 Output Total 2850 Balance -385 100 - Medications Medications: Current Medications Albuterol/Ipratropium (Duoneb 3 Mg/0.5 Mg (3 Ml) Ud) 3 ml IH Q2H PRN PRN Reason: Shortness of Breath Arformoterol Tartrate (Brovana) 15 mcg IH [id number] [facility] Last Admin: 05/23/18 07:35 Dose: 15 mcg Aspirin (Aspirin Chewable) 81 mg PO DAILY [facility] Last Admin: 05/23/18 10:20 Dose: 81 mg Atorvastatin Calcium (Lipitor) 20 mg PO HS [facility] Last Admin: 05/22/18 22:08 Dose: 20 mg Budesonide (Pulmicort Respules) 0.5 mg IH [id number] [facility] Last Admin: 05/23/18 07:35 Dose: 0.5 mg Carvedilol (Coreg) 12.5 mg PO BID [facility] Last Admin: 05/23/18 10:20 Dose: 12.5 mg Clonidine HCl (Catapres) 0.2 mg PO BID [facility] Last Admin: 05/23/18 10:20 Dose: 0.2 mg Dextrose (Dextrose 50% Inj) 0 ml IV STAT PRN; Protocol PRN Reason: Hypoglycemia Protocol Docusate Sodium (Colace) 100 mg PO TID PRN PRN Reason: Constipation Ferrous Sulfate (Feosol Liq) 300 mg PO TID [facility] Last Admin: 05/23/18 10:19 Dose: 300 mg Furosemide (Lasix) 40 mg IVP Q12 [facility] Last Admin: 05/23/18 10:13 Dose: 40 mg Glipizide (Glucotrol) 5 mg PO ACB [facility] Last Admin: 05/23/18 10:20 Dose: 5 mg Guaifenesin (Robitussin) 100 mg PO Q4H PRN PRN Reason: Cough Heparin Sodium (Porcine) (Heparin) 5,000 units SC Q8 ED PRN Reason: Protocol Last Admin: 05/22/18 22:08 Dose: 5,000 units Milrinone Lactate/Dextrose (Primacor 20mg/100ml D5w) 100 mls @ 17.146 mls/hr IV .Q5H50M PRN; Protocol; 0.375 MCG/KG/MIN PRN Reason: TITRATE PER MD ORDER Last Admin: 05/23/18 07:52 Dose: 0.375 mcg/kg/min, 17.146 mls/hr Insulin Human Regular (Humulin R) 0 units SC ACHS [facility] PRN Reason: Protocol Last Admin: 05/23/18 12:27 Dose: 1 unit Ipratropium [place] (Atrovent) 0.5 mg IH [id number] [facility] Last Admin: 05/23/18 07:35 Dose: 0.5 mg Lisinopril (Zestril) 2.5 mg PO DAILY [facility] Last Admin: 05/23/18 10:19 Dose: 2.5 mg Methylprednisolone (Solu-Medrol) 30 mg IVP DAILY [facility] Last Admin: 05/23/18 10:12 Dose: 30 mg Ondansetron HCl (Zofran Tab) 4 mg PO Q8H PRN PRN Reason: Nausea/Vomiting Pantoprazole Sodium (Protonix Ec Tab) 40 mg PO DAILY [facility] Last Admin: 05/23/18 10:19 Dose: 40 mg Polyethylene Glycol (Miralax) 17 gm PO DAILY PRN PRN Reason: Constipation Spironolactone (Aldactone) 25 mg PO DAILY [facility] Last Admin: 05/23/18 10:20 Dose: 25 mg - Labs Labs: 05/23/18 09:20 05/23/18 07:30 PT 21.4 SECONDS (9.4-12.5) H 05/09/18 17:00 INR 1.85 05/09/18 17:00 APTT 30.9 Seconds (25.1-36.5) 05/09/18 17:00 Attending/Attestation - Attestation I have personally seen and examined this patient.: Yes I have fully participated in the care of the patient.: Yes I have reviewed all pertinent clinical information, including history, physical exam and plan: Yes Notes (Text): 05/23/18 13:35 Attending note; Patient seen and examined with resident. Patient is a 52 year old male with a PMHx of COPD, DM2, HTN, HLD, CHF, CAD , lumbar radiculopathy, gout, brought by EMS for respiratory distress and progressive worsening of generalized body swelling. Acute systolic CHF exacerbation; likely due to home medication non-compliance. Started on IV Lasix. continue BiPAP at night. CHF is resolving slowly. History of coronary artery disease and stent placement. Noncompliance with follow-up. Cardiology evaluation appreciated. Echocardiogram showed ejection fraction of 39 % with mild LVH. History of smoking and COPD;pulmonary evaluation appreciated. Continue DuoNeb, Solu-Medrol and Pulmicort. Needs outpatient sleep study. continue BiPAP. Generalized anasarca; secondary to heart failure. Diabetes; continue regular insulin sliding scale. Started on glipizide. Anemia; and deficiency anemia .needs GI workup after stabilization. currently no active bleeding. Started on by mouth iron. Scrotal edema; secondary to CHF. Ultrasound showed hydrocele. Urology evaluation requested. Patient refused to give information about his medical condition. Patient is educated to get healthcare proxy. Psychiatric evaluation requested to rule out depression. Prognosis is poor secondary to noncompliance with follow-up. Upon discharge the patient will follow-up with PMD . Physical therapy evaluation requested. job analysis manager/nursing home social worker evaluation requested for discharge planning.
--- NOTE | 2018-05-13 15:40 | CP.PCM.PN ---
Subjective - Date & Time of Evaluation Date of Evaluation: 05/13/18 Time of Evaluation: 15:36 - Subjective Subjective: PULMONARY FOLLOW UP Patient seen and examined, on BIPAP. Reports mild SOB. Objective - Vital Signs/Intake and Output Vital Signs (last 24 hours): Temp Pulse Resp BP Pulse Ox 98.1 F 96 H 22 137/97 H 95 05/13/18 12:00 05/13/18 13:05 05/13/18 12:00 05/13/18 12:00 05/13/18 06:00 Intake and Output: 05/13/18 05/13/18 06:59 18:59 Intake Total 360 100 Output Total 900 Balance -540 100 - Medications Medications: Current Medications Albuterol/Ipratropium (Duoneb 3 Mg/0.5 Mg (3 Ml) Ud) 3 ml IH [id number] [facility] Last Admin: 05/13/18 13:02 Dose: 3 ml Arformoterol Tartrate (Brovana) 15 mcg IH [id number] [facility] Last Admin: 05/13/18 07:12 Dose: 15 mcg Aspirin (Aspirin Chewable) 81 mg PO DAILY [facility] Last Admin: 05/13/18 09:56 Dose: 81 mg Budesonide (Pulmicort Respules) 0.5 mg IH [id number] [facility] Last Admin: 05/13/18 07:12 Dose: 0.5 mg Carvedilol (Coreg) 12.5 mg PO BID [facility] Last Admin: 05/13/18 09:56 Dose: 12.5 mg Cefpodoxime Proxetil (Vantin) 200 mg PO Q12 [facility] Stop: 05/15/18 10:59 Clonidine HCl (Catapres) 0.2 mg PO BID [facility] Last Admin: 05/13/18 10:56 Dose: 0.2 mg Dextrose (Dextrose 50% Inj) 0 ml IV STAT PRN; Protocol PRN Reason: Hypoglycemia Protocol Docusate Sodium (Colace) 100 mg PO TID [facility] Last Admin: 05/13/18 15:35 Dose: 100 mg Ferrous Sulfate (Feosol Liq) 300 mg PO TID [facility] Last Admin: 05/13/18 15:35 Dose: 300 mg Furosemide (Lasix) 40 mg PO DAILY [facility] Last Admin: 05/13/18 09:56 Dose: 40 mg Glipizide (Glucotrol) 5 mg PO ACB [facility] Last Admin: 05/13/18 08:57 Dose: 5 mg Heparin Sodium (Porcine) (Heparin) 5,000 units SC Q12 [facility] PRN Reason: Protocol Last Admin: 05/13/18 09:57 Dose: 5,000 units Insulin Human Regular (Humulin R) 0 units SC ACHS [facility] PRN Reason: Protocol Last Admin: 05/13/18 12:18 Dose: 2 unit Methylprednisolone (Solu-Medrol) 60 mg IVP Q12 [facility] Last Admin: 05/13/18 09:55 Dose: 60 mg Ondansetron HCl (Zofran Tab) 4 mg PO Q8H PRN PRN Reason: Nausea/Vomiting Pantoprazole Sodium (Protonix Ec Tab) 40 mg PO DAILY [facility] Last Admin: 05/13/18 09:56 Dose: 40 mg Polyethylene Glycol (Miralax) 17 gm PO DAILY [facility] Last Admin: 05/13/18 09:57 Dose: 17 gm Spironolactone (Aldactone) 25 mg PO DAILY [facility] Last Admin: 05/13/18 09:56 Dose: 25 mg - Labs Labs: 05/13/18 04:58 05/13/18 04:58 PT 21.4 SECONDS (9.4-12.5) H 05/09/18 17:00 INR 1.85 05/09/18 17:00 APTT 30.9 Seconds (25.1-36.5) 05/09/18 17:00 - Constitutional Appears: Non-toxic, No Acute Distress - Head Exam Head Exam: NORMAL INSPECTION - Eye Exam Eye Exam: Normal appearance - ENT Exam ENT Exam: Mucous Membranes Moist - Respiratory Exam Respiratory Exam: Wheezes, NORMAL BREATHING PATTERN - Cardiovascular Exam Cardiovascular Exam: REGULAR RHYTHM, +S1, +S2 - GI/Abdominal Exam GI & Abdominal Exam: Soft, Normal Bowel Sounds - Extremities Exam Extremities Exam: Pedal Edema - Neurological Exam Neurological Exam: Alert, Awake - Skin Skin Exam: Normal Color, Warm Assessment and Plan - Assessment and Plan (Free Text) Assessment: 52yo male with hypercapnia, COPD exacerbation, CHF exacerbation - patient is currently Awake, alert, in NAD - ABG reviewed from yesterday, chronic resp acidosis, compensated, would use BIPAP as needed and at night - decrease steroids to Solumedrol 40mg IV q12hr - Duonebs PRN - would start Symbicort 160/4.5 BID - counseled on smoking cessation - will need outpatient PFTs - will need outpatient sleep study, likely has CHARAN - Lasix IV diuresis, CHF management as per cardiology
--- NOTE | 2018-05-13 17:54 | CARD ---
APPROVED REPORT Date of service: 05/13/2018 EKG Measurement Heart [id number] <Conclusion> Sinusl rhythm Possible Lateral infarct, age undetermined Inferior-posterior infarct, age undetermined Low Voltage Abnormal ECG
--- NOTE | 2018-05-13 20:02 | CP.PCM.PN ---
Subjective - Date & Time of Evaluation Date of Evaluation: 05/12/18 Time of Evaluation: 10:30 - Subjective Subjective: Patient still on a BiPAP but comfortable, no fevers, not in distress. No diarrhea, no nausea. Objective - Vital Signs/Intake and Output Vital Signs (last 24 hours): Temp Pulse Resp BP Pulse Ox 97.3 F L 99 H 20 177/109 H 96 05/12/18 06:01 05/12/18 06:01 05/12/18 06:01 05/12/18 10:20 05/12/18 06:01 Intake and Output: 05/12/18 05/12/18 06:59 18:59 Intake Total 620 Output Total 1200 Balance -580 - Medications Medications: Current Medications Albuterol/Ipratropium (Duoneb 3 Mg/0.5 Mg (3 Ml) Ud) 3 ml IH [id number] [facility] Last Admin: 05/12/18 07:17 Dose: 3 ml Arformoterol Tartrate (Brovana) 15 mcg IH [id number] [facility] Last Admin: 05/12/18 07:17 Dose: 15 mcg Aspirin (Aspirin Chewable) 81 mg PO DAILY [facility] Last Admin: 05/12/18 10:24 Dose: 81 mg Budesonide (Pulmicort Respules) 0.5 mg IH [id number] [facility] Last Admin: 05/12/18 07:17 Dose: 0.5 mg Carvedilol (Coreg) 12.5 mg PO BID [facility] Dextrose (Dextrose 50% Inj) 0 ml IV STAT PRN; Protocol PRN Reason: Hypoglycemia Protocol Furosemide (Lasix) 60 mg IVP Q12 [facility] Last Admin: 05/12/18 10:20 Dose: 60 mg Heparin Sodium (Porcine) (Heparin) 5,000 units SC Q12 [facility] PRN Reason: Protocol Last Admin: 05/12/18 10:25 Dose: 5,000 units Ceftriaxone Sodium (Rocephin 1 Gram Ivpb) 1 gm in 100 mls @ 100 mls/hr IVPB DAILY [facility] PRN Reason: Protocol Last Admin: 05/12/18 10:20 Dose: 100 mls/hr Insulin Human Regular (Humulin R) 0 units SC ACHS [facility] PRN Reason: Protocol Last Admin: 05/12/18 08:20 Dose: 2 unit Methylprednisolone (Solu-Medrol) 60 mg IVP Q12 [facility] Last Admin: 08/23/18 10:24 Dose: 60 mg Ondansetron HCl (Zofran Tab) 4 mg PO Q8H PRN PRN Reason: Nausea/Vomiting Pantoprazole Sodium (Protonix Ec Tab) 40 mg PO DAILY [facility] Last Admin: 05/12/18 10:25 Dose: 40 mg Spironolactone (Aldactone) 25 mg PO DAILY [facility] - Labs Labs: 05/12/18 05:40 05/12/18 05:40 PT 21.4 SECONDS (9.4-12.5) H 05/09/18 17:00 INR 1.85 05/09/18 17:00 APTT 30.9 Seconds (25.1-36.5) 05/09/18 17:00 - Constitutional Appears: Chronically Ill - Head Exam Head Exam: NORMAL INSPECTION - Neck Exam Neck Exam: absent: Meningismus - Respiratory Exam Respiratory Exam: Decreased Breath Sounds - Cardiovascular Exam Cardiovascular Exam: +S1, +S2 - GI/Abdominal Exam GI & Abdominal Exam: Soft. absent: Tenderness Assessment and Plan - Assessment and Plan (Free Text) Plan: Assessment Hypoxic and hypercapneic respiratory failure due to acute decompensated heart failure, with possible COPD exacerbation no evidence of HIV infection CAD S/P PCI chronic CHF DM COPD HTN dyslipidemia gout morbid obesity with BMI 41 lumbar radiculopathy Plan HIV virus load is not detected and CD4 count is normal follow up further plans of Cardiology and Pulmonary - patient on BiPAP, bronchodilators and systemic steroids will continue to monitor clinically off antibiotics
[2018-05-14] MEDS: Albuterol-Ipratrop 3 mg / 0.5 (3 ml) UD IH SCH ×3 (01:49→19:16)
[2018-05-14 07:40] LABS: HEMOGLOBIN 8.9 g/dL (14.0-18.0); MEAN CORPUSCULAR HEMOGLOBIN 19.7 pg (25.0-35.0); MEAN CORPUSCULAR HGB CONC 27.7 g/dl (31.0-37.0); PLATELET COUNT 273 10^3/uL (120.0-450.0); RBC 4.52 10^6/uL (3.5-6.1); RED CELL DISTRIBUTION WIDTH 21.5 % (11.5-14.5); WHITE BLOOD COUNT 8.5 10^3/ul (4.5-11.0)
[2018-05-14 07:55] LABS: ALB/GLOB RATIO 0.9 (1.1-1.8); ALBUMIN 3.2 g/dL (3.0-4.8); ALT/SGPT 27 U/L (7-56); AST/SGOT 22 U/L (17-59); BLOOD UREA NITROGEN 42 mg/dL (7-21); CALCIUM 8.7 mg/dL (8.4-10.5); GFR NON-AFRICAN AMERICAN > 60
[2018-05-14] MEDS: Insulin Regular 1 UNITS/0.01 ML ML SC SCH ×4 (08:20→22:00)
[2018-05-14] MEDS: Arformoterol 15 mcg/2 ml Inh Sol IH SCH ×2 (08:21→19:16)
[2018-05-14] MEDS: Budesonide 0.5 mg/2 ml Inhal Susp UD IH SCH ×2 (08:22→19:16)
[2018-05-14] MEDS: Ferrous Sulfate 300 mg/5 mL Liq UD PO SCH ×3 (10:25→17:14)
[2018-05-14] MEDS: POLYETHYLENE GLYCOL 3350 17 GM/Dose PACKET PO SCH (10:26)
[2018-05-14] MEDS: Pantoprazole 40 mg EC Tab PO SCH (10:26)
[2018-05-14] MEDS: Cefpodoxime (Vantin) 200 mg Tab PO SCH ×2 (10:27→22:00)
--- NOTE | 2018-05-14 12:32 | CP.PCM.PN ---
<Alejandro Barrios - Last Filed: 05/14/18 16:05> Subjective - Date & Time of Evaluation Date of Evaluation: 05/14/18 Time of Evaluation: 12:26 - Subjective Subjective: Alejandro Barrios PGY1 Progress Note for Dr. Armas Mr. Khan was examined at bedside this morning. He was drowsy but arousable. He complained of shortness of breath and abdominal pain. He denied any chest pain, headache, nausea, vomiting, or dysuria. Nursing reported noncompliance with bipap overnight. Objective - Vital Signs/Intake and Output Vital Signs (last 24 hours): Temp Pulse Resp BP Pulse Ox 97.6 F 93 H 24 132/78 93 L 05/14/18 05:10 05/14/18 06:00 05/14/18 05:10 05/14/18 10:26 05/14/18 05:10 Intake and Output: 05/14/18 05/14/18 06:59 18:59 Intake Total 720 Output Total 3400 Balance -2680 - Medications Medications: Current Medications Albuterol/Ipratropium (Duoneb 3 Mg/0.5 Mg (3 Ml) Ud) 3 ml IH [id number] [facility] Last Admin: 05/14/18 01:49 Dose: 3 ml Arformoterol Tartrate (Brovana) 15 mcg IH [id number] [facility] Last Admin: 05/14/18 08:21 Dose: 15 mcg Aspirin (Aspirin Chewable) 81 mg PO DAILY [facility] Last Admin: 05/14/18 10:24 Dose: 81 mg Budesonide (Pulmicort Respules) 0.5 mg IH [id number] [facility] Last Admin: 05/14/18 08:22 Dose: 0.5 mg Carvedilol (Coreg) 12.5 mg PO BID [facility] Last Admin: 05/14/18 10:25 Dose: 12.5 mg Cefpodoxime Proxetil (Vantin) 200 mg PO Q12 [facility] Stop: 05/15/18 10:59 Last Admin: 05/14/18 10:27 Dose: 200 mg Clonidine HCl (Catapres) 0.2 mg PO BID [facility] Last Admin: 05/14/18 10:24 Dose: 0.2 mg Dextrose (Dextrose 50% Inj) 0 ml IV STAT PRN; Protocol PRN Reason: Hypoglycemia Protocol Docusate Sodium (Colace) 100 mg PO TID [facility] Last Admin: 05/14/18 10:25 Dose: 100 mg Ferrous Sulfate (Feosol Liq) 300 mg PO TID [facility] Last Admin: 05/14/18 10:25 Dose: 300 mg Furosemide (Lasix) 40 mg PO DAILY [facility] Last Admin: 05/14/18 10:26 Dose: 40 mg Glipizide (Glucotrol) 5 mg PO ACB [facility] Last Admin: 05/14/18 08:20 Dose: 5 mg Heparin Sodium (Porcine) (Heparin) 5,000 units SC Q8 [facility] PRN Reason: Protocol Insulin Human Regular (Humulin R) 0 units SC ACHS [facility] PRN Reason: Protocol Last Admin: 05/14/18 12:13 Dose: 1 unit Methylprednisolone (Solu-Medrol) 60 mg IVP Q12 [facility] Last Admin: 05/14/18 10:26 Dose: 60 mg Ondansetron HCl (Zofran Tab) 4 mg PO Q8H PRN PRN Reason: Nausea/Vomiting Pantoprazole Sodium (Protonix Ec Tab) 40 mg PO DAILY [facility] Last Admin: 05/14/18 10:26 Dose: 40 mg Polyethylene Glycol (Miralax) 17 gm PO DAILY [facility] Last Admin: 05/14/18 10:26 Dose: 17 gm Spironolactone (Aldactone) 25 mg PO DAILY [facility] Last Admin: 05/14/18 10:23 Dose: 25 mg - Labs Labs: 05/14/18 06:30 05/14/18 06:30 PT 21.4 SECONDS (9.4-12.5) H 05/09/18 17:00 INR 1.85 05/09/18 17:00 APTT 30.9 Seconds (25.1-36.5) 05/09/18 17:00 - Head Exam Head Exam: ATRAUMATIC, NORMOCEPHALIC - Respiratory Exam Respiratory Exam: Accessory Muscle Use, Wheezes - Cardiovascular Exam Cardiovascular Exam: REGULAR RHYTHM, +S1, +S2 - GI/Abdominal Exam GI & Abdominal Exam: Soft, Tenderness, Normal Bowel Sounds. absent: Distended Additional comments: tenderness to palpation of epigastric region - Extremities Exam Extremities Exam: Pedal Edema - Neurological Exam Neurological Exam: Awake - Psychiatric Exam Psychiatric exam: Depressed - Skin Skin Exam: Normal Color Assessment and Plan - Assessment and Plan (Free Text) Assessment: 52 year old male with a PMHx of COPD, DM2, HTN, HLD, CHF, CAD w/ stent, lumbar radiculopathy, gout, brought by EMS for respiratory distress 2/2 CHF exacerbation likely due to home medication non-compliance. Plan: Respiratory Distress 2/2 CHF exacerbation - Cardiac cath at [facility] in 12/[address] Judge: EF 30% and LAD lesion 80%. [employer] provided however patient non-compliant and no cardiology f/u - proBNP 2220 in ED - pt continues to wheeze, noncompliant with bipap - O2 sat: 93% on bipap - ECHO: mild concentric LVH, systolic function moderately impaired, septal hypokinesis, mild MR, moderate TR, mild pulmonary HTN, aortic root mildly enlarged - ABG 05/12 : pCO2 57 from 68, pO2 71 from 66, pH 7.35 from 7.23 - CXR: moderate CHF, significant cardiomegaly - CT head: no active disease - continue bipap - continue lasix to 40mg IV BID (hold parameters: SBP<100) - continue solumedrol 60mg q12 - continue advair BID - duonebs [facility]h [facility] - Head of bed 30 degrees - nasal cannula 3L/min - I/Os: 1540 input, 4400 output - Cardiology consulted, Dr. Suarez- latisha intervention at this time, continue current medication regimen - Pulm consulted, Dr. Eduardo - demetria appreciated - PT: recommend subacute rehab - [facility]: continue dysphagia therapy Medication non-compliance - pt non compliant with home medications and does not attend PMD appts - pt refusing to communicate medical history - pt does not give consent to share medical information with family members - Social Work on board - Palliative care consulted, f/u recs - Psychiatry consulted, Dr. Heaton - no further inpatient recs at this time HIV 1 ab positive - Patient's girlfriend brought home meds, including Combivir (lamivudine/ zidovudine) which he denied being his medication - HIV-1 ab positive, HIV-2 ab negative, HIV 4th gen positive - CD4 747 - viral load not detected - consider holding therapy at this time, as patient is unreliable - ID Consulted, Dr. Yaneli augustin appreciated HTN - BP 143/92 today - continue coreg 12.5mg po bid, aldactone 25mg po qd - monitor - Cardiology consulted, Dr. Grace augustin appreciated Leukocytosis - WBC 8.5 today - BCx negative x4 - d/c rocephin, as per ID - start vantin, as per ID - continue to monitor - ID consulted, Dr. Rodrigue augustin appreciated Suspect Arrythmia - home medication includes eliquis 5mg po bid, held - repeat EKG 05/10: sinus arrythmia with pulmonary disease, prolonged QT - PMD at [facility] contacted, expecting records to be faxed Scrotal Edema - likely secondary to CHF, anasarca, pt reports longstanding history - US testes: scrotal wall edema, small b/l hydroceles, no torsion or mass - continue lasix to 40mg IV BID - elevate testes, as per Uro - Urology Consulted: Dr. Raghav augustin appreciated CAD - stent placed in 2014 - Cardiac cath at [facility] in 12/[address] Judge: EF 30% and LAD lesion 80%. [employer] provided however patient non-compliant and no cardiology f/u - Trop negative x2 - EKG 05/10: sinus arrythmia with pulmonary disease, prolonged QT - Cardiology consulted, Dr. Suarez- no intervention at this time, continue current medication regimen COPD - smokes 2 packs per day - home medications: ventolin and flovent, reports noncompliance - pt continues to wheeze, noncompliant with bipap - continue bipap, monitor breathing - continue solumedrol 60mg q12 - continue advair BID - duoneb q6h ed - Pulm Consulted, Dr. Magaly augustin appreciated DM2 - home medications: metformin 500mg po bid, reports noncompliance - accucheck q6h, RISS low dose - FSG 05/13 to 05/14: 228, 193, 193, 178, 178 - HbA1c 7.2 - UA: small leukocyte HLD - home medication: lipitor 20mg po qd, reports noncompliance - lipid panel 05/10: TG 66, Cholesterol 86, LDL 44, HDL 24 Microcytic Anemia - likely chronic/multifactorial - Hb 05/14 8.9 (baseline per chart ~10.5 from 12/2017) - Iron workup 05/10: Fe 10 (low), TIBC 171 (low), %sat 6 (low), ferritin 16.8 - vitamin b12 >1000, folate 5.9 level - FOBT negative - f/u outpatient Prophylaxis - SCDs contraindicated - edema b/l - advance bite size diet - GI prophylaxis not indicated Case reviewed and discussed with Dr. Armas <Sneha Armas R - Last Filed: 05/15/18 07:39> Objective - Vital Signs/Intake and Output Vital Signs (last 24 hours): Temp Pulse Resp BP Pulse Ox 98.1 F 94 H 20 110/68 98 05/15/18 06:00 05/15/18 06:00 05/15/18 06:00 05/15/18 06:00 05/15/18 06:00 Intake and Output: 05/15/18 05/15/18 06:59 18:59 Intake Total 2160 Output Total 3500 Balance -1340 - Medications Medications: Current Medications Albuterol/Ipratropium (Duoneb 3 Mg/0.5 Mg (3 Ml) Ud) 3 ml IH [id number] [facility] Last Admin: 05/15/18 01:15 Dose: 3 ml Arformoterol Tartrate (Brovana) 15 mcg IH [id number] [facility] Last Admin: 05/14/18 19:16 Dose: 15 mcg Aspirin (Aspirin Chewable) 81 mg PO DAILY [facility] Last Admin: 05/14/18 10:24 Dose: 81 mg Budesonide (Pulmicort Respules) 0.5 mg IH [id number] [facility] Last Admin: 05/14/18 19:16 Dose: 0.5 mg Carvedilol (Coreg) 12.5 mg PO BID [facility] Last Admin: 05/14/18 17:09 Dose: 12.5 mg Cefpodoxime Proxetil (Vantin) 200 mg PO Q12 [facility] Stop: 05/15/18 10:59 Last Admin: 05/14/18 22:00 Dose: Not Given Clonidine HCl (Catapres) 0.2 mg PO BID [facility] Last Admin: 05/14/18 17:08 Dose: 0.2 mg Dextrose (Dextrose 50% Inj) 0 ml IV STAT PRN; Protocol PRN Reason: Hypoglycemia Protocol Docusate Sodium (Colace) 100 mg PO TID [facility] Last Admin: 05/14/18 17:09 Dose: 100 mg Ferrous Sulfate (Feosol Liq) 300 mg PO TID [facility] Last Admin: 05/14/18 17:14 Dose: 300 mg Furosemide (Lasix) 40 mg PO DAILY [facility] Last Admin: 05/14/18 10:26 Dose: 40 mg Glipizide (Glucotrol) 5 mg PO ACB [facility] Last Admin: 05/14/18 08:20 Dose: 5 mg Heparin Sodium (Porcine) (Heparin) 5,000 units SC Q8 ED PRN Reason: Protocol Last Admin: 05/15/18 05:58 Dose: 5,000 units Insulin Human Regular (Humulin R) 0 units SC ACHS ED PRN Reason: Protocol Last Admin: 05/14/18 22:00 Dose: Not Given Methylprednisolone (Solu-Medrol) 60 mg IVP Q12 [facility] Last Admin: 05/14/18 22:00 Dose: Not Given Ondansetron HCl (Zofran Tab) 4 mg PO Q8H PRN PRN Reason: Nausea/Vomiting Pantoprazole Sodium (Protonix Ec Tab) 40 mg PO DAILY [facility] Last Admin: 05/14/18 10:26 Dose: 40 mg Polyethylene Glycol (Miralax) 17 gm PO DAILY [facility] Last Admin: 05/14/18 10:26 Dose: 17 gm Spironolactone (Aldactone) 25 mg PO DAILY [facility] Last Admin: 05/14/18 10:23 Dose: 25 mg - Labs Labs: 05/14/18 06:30 05/14/18 06:30 PT 21.4 SECONDS (9.4-12.5) H 05/09/18 17:00 INR 1.85 05/09/18 17:00 APTT 30.9 Seconds (25.1-36.5) 05/09/18 17:00 Attending/Attestation - Attestation I have personally seen and examined this patient.: Yes I have fully participated in the care of the patient.: Yes I have reviewed all pertinent clinical information, including history, physical exam and plan: Yes Notes (Text): Patient seen and examined by me at 9:05AM with resident 05/14/18. Case including HPI, physical exam, and assessment and plan discussed with resident. Agree with above with following additions/corrections. Patient is a 52 year old male with past medical history significant for COPD, CAD, CHF, DM2, HTN, hperlipidemia, lumbar radiculopathy, and gout that presented to the emergency room with shortness of breath. Patient states he is feeling ok. Feels short of breath. Discussed using BIPAP with patient. Patient agreed and then refused when asked to wear mask. Patient also complains of some abdominal discomfort and states he needs to have a bowel movement. He denies any chest pain or palpitations. No headache or dizziness. No fevers or chills. No nausea, vomiting, or abdominal pain. No dysuria. Physical exam: Gen: Awake and alert sitting up in bed in mild respiratory distress HEENT: Normocephalic, atraumatic. Extraocular muscles intact, pupils equal reactive. No scleral icterus. Oropharynx is pink and moist. Neck is supple. Cardiovascular: Normal rhythm. Normal S1, S2. No murmurs, rubs, or gallops appreciated Pulmonary: Tachypenic when speaking. Using accessory muscles. Coarse breath sounds. Wheezing heard throughout. Gastrointestinal: Soft, nontender, nondistended. Globular abdomen. Positive bowel sounds all 4 quadrants, no guarding. Musculoskeletal: Moves all extremities. No calf tenderness. Central nervous system: AAO x 3. CN 2-12 grossly intact. Dermatologic: Skin warm and dry Assessment and plan: Patient is a 52 year old male with past medical history significant for COPD, CAD, CHF, DM2, HTN, hperlipidemia, lumbar radiculopathy, and gout that presented to the emergency room with shortness of breath. 1. Respiratory distress. Multifactorial. Likely secondary to acute on chronic systolic CHF exacerbation, COPD, and non compliance with medications. 2-D echo per assurance senior manager insurance shows left ventricle is normal size, mild concentric left ventricular hypertrophy, systolic function is moderately to severely impaired, septal hypokinesis, EF approximately 39% (please see official read for full details). Chest xray shows severe vascular congestion. Patient has been refusing BiPAP. Cardiology following, recommendations appreciated. Pulmonary following, recommendations appreciated. Continue Coreg, Lasix, and Aldactone. Continue to monitor I's and O's. Monitor daily weights. 2. COPD exacerbation. Pulmonary following, recommendations appreciated. Continue Solu-Medrol. Continue Brovana, Pulmicort, and nebulizer treatments. Continue O2 via nasal cannula. Importance of using BiPAP discussed with patient at length. Patient has still been refusing. 3. Medication noncompliance. Importance of compliance discussed with patient at length. Palliative care consult, follow-up recommendations. Psychiatry following , recommendations appreciated. 4. HIV 1 antibody positive, HIV fourth generation positive. CD4 count 747. Viral load not detected. ID following, recommendations appreciated. 5. Abnormal urinalysis. ID following, patient on Vantin. 6. CAD s/p stent placement. Patient non-compliant with medications and follow up with doctors. Contine Coreg, ASA 7. Hypertension. Continue Clonidine and Coreg 8. DM2. Continue insulin sliding scale and glipizide. Continue to monitor accuchecks. 9. Hyperlipidemia. Continue Lipitor 10. Chronic anemia. No signs of acute bleeding. H&H stable. Continue to monitor. Continue ferrous sulfate 11. Scrotal edema. Likely secondary to anasarca. Testicular ultrasound per radiologist shows diffuse scrotal wall edema, no drainable fluid collection, small bilateral hydroceles, no evidence for testicular torsion or mass. Urology following, recommendations appreciated. 12. GI/DVT prophylaxis. Protonix and heparin Case was discussed in detail with the patient bedside regarding current diagnosis and treatment plan.
--- NOTE | 2018-05-14 15:15 | PN ---
Copied To: Harris Todd MD Attending MD: Harris Todd MD DATE: 05/14/2018 SUBJECTIVE: The patient is in bed, in no acute distress. PHYSICAL EXAMINATION: VITAL SIGNS: Temperature of 97, blood pressure is 143/90, respiratory rate of 22. HEENT: Examination of HEENT is unremarkable. NECK: Supple. LUNGS: Have decreased breath sounds. HEART: Normal S1, S2. ABDOMEN: Soft, nontender. LABORATORY DATA: Laboratory examination reveals a white count of 8.5, hemoglobin of 8, platelets of 273. Chemistries reveal a BUN of 42, creatinine of 1.1 and procalcitonin 0.05. Urinalysis is noted. T cells are reviewed. HIV is reactive. ASSESSMENT AND PLAN: This is a 52-year-old male with morbid obesity with a body mass index of 43 with hypoxia and hypercapnic respiratory failure due to acute decompensated congestive heart failure and possible chronic obstructive lung disease. No evidence of human immunodeficiency virus infection, chronic congestive heart failure, diabetes. Viral load is not detected and CD-4 count is normal. Currently off of antibiotics. Dyslipidemia, chronic obstructive pulmonary disease, diabetic, chronic congestive heart failure with morbid obesity with body mass index of , lumbar radiculopathy. Human immunodeficiency virus RNA is not detected with normal T cells. We will follow with you. The patient is started on p.o. Vantin by today. Harris Todd MD
[2018-05-15] MEDS: Albuterol-Ipratrop 3 mg / 0.5 (3 ml) UD IH SCH ×4 (01:15→19:35)
[2018-05-15] MEDS: Arformoterol 15 mcg/2 ml Inh Sol IH SCH ×2 (07:19→19:35)
[2018-05-15] MEDS: Budesonide 0.5 mg/2 ml Inhal Susp UD IH SCH ×2 (07:19→19:35)
[2018-05-15 07:37] LABS: GRAN # 5.74 (1.4-6.5); GRAN % 61.3 % (50.0-68.0); HEMOGLOBIN 9.2 g/dL (14.0-18.0); LYMPH # 2.6 (1.2-3.4); LYMPH % 27.9 % (22.0-35.0); MEAN CELL VOLUME 72.6 fl (80.0-105.0); MEAN CORPUSCULAR HEMOGLOBIN 19.4 pg (25.0-35.0); MEAN CORPUSCULAR HGB CONC 26.7 g/dl (31.0-37.0); MONO % 10.8 % (1.0-6.0); PLATELET COUNT 284 10^3/uL (120.0-450.0); RBC 4.74 10^6/uL (3.5-6.1); WHITE BLOOD COUNT 9.4 10^3/ul (4.5-11.0)
[2018-05-15 07:47] LABS: ALB/GLOB RATIO 0.9 (1.1-1.8); ALBUMIN 3.2 g/dL (3.0-4.8); ALT/SGPT 26 U/L (7-56); AST/SGOT 26 U/L (17-59); BLOOD UREA NITROGEN 46 mg/dL (7-21); CALCIUM 9.1 mg/dL (8.4-10.5); GFR NON-AFRICAN AMERICAN > 60
[2018-05-15] MEDS: Insulin Regular 1 UNITS/0.01 ML ML SC SCH ×4 (08:46→21:53)
[2018-05-15] MEDS: Cefpodoxime (Vantin) 200 mg Tab PO SCH (09:51)
[2018-05-15] MEDS: Pantoprazole 40 mg EC Tab PO SCH (09:59)
[2018-05-15] MEDS: Ferrous Sulfate 300 mg/5 mL Liq UD PO SCH ×3 (10:00→17:12)
[2018-05-15] MEDS: POLYETHYLENE GLYCOL 3350 17 GM/Dose PACKET PO SCH (10:02)
--- NOTE | 2018-05-15 11:33 | CP.PCM.PN ---
<Alejandro Barrios - Last Filed: 05/15/18 15:55> Subjective - Date & Time of Evaluation Date of Evaluation: 05/15/18 Time of Evaluation: 11:30 - Subjective Subjective: Alejandro Barrios, PGY1 Progress Note for Dr. Armas Mr. Khan was examined at bedside this morning. He reported some shortness of breath overnight, and according to nursing staff was noncompliant with bipap. Pt denied dizziness, chest pain, abdominal pain, nausea, vomiting. Pt requested that we call his "fiance". Contact Nita was called, she reported that he has been very difficult and that he can't even walk at home. He gave permission to call mother Kate. She said she would talk to Nita and try to come over and visit him. He expressed wish to transfer to a different hospital or leave on his own. Objective - Vital Signs/Intake and Output Vital Signs (last 24 hours): Temp Pulse Resp BP Pulse Ox 98.1 F 107 H 20 134/94 H 98 05/15/18 06:00 05/15/18 09:59 05/15/18 06:00 05/15/18 09:59 05/15/18 06:00 Intake and Output: 05/15/18 05/15/18 06:59 18:59 Intake Total 2160 Output Total 3500 Balance -1340 - Medications Medications: Current Medications Albuterol/Ipratropium (Duoneb 3 Mg/0.5 Mg (3 Ml) Ud) 3 ml IH [id number] [facility] Last Admin: 05/15/18 07:19 Dose: 3 ml Arformoterol Tartrate (Brovana) 15 mcg IH [id number] [facility] Last Admin: 05/15/18 07:19 Dose: 15 mcg Aspirin (Aspirin Chewable) 81 mg PO DAILY [facility] Last Admin: 05/15/18 10:00 Dose: 81 mg Atorvastatin Calcium (Lipitor) 20 mg PO [facility] Budesonide (Pulmicort Respules) 0.5 mg IH [id number] [facility] Last Admin: 05/15/18 07:19 Dose: 0.5 mg Carvedilol (Coreg) 12.5 mg PO BID [facility] Last Admin: 05/15/18 09:59 Dose: 12.5 mg Clonidine HCl (Catapres) 0.2 mg PO BID [facility] Last Admin: 05/15/18 09:52 Dose: 0.2 mg Dextrose (Dextrose 50% Inj) 0 ml IV STAT PRN; Protocol PRN Reason: Hypoglycemia Protocol Docusate Sodium (Colace) 100 mg PO TID [facility] Last Admin: 05/15/18 09:51 Dose: 100 mg Ferrous Sulfate (Feosol Liq) 300 mg PO TID [facility] Last Admin: 05/15/18 10:00 Dose: 300 mg Furosemide (Lasix) 40 mg PO DAILY [facility] Last Admin: 05/15/18 09:59 Dose: 40 mg Glipizide (Glucotrol) 5 mg PO ACB [facility] Last Admin: 05/15/18 08:46 Dose: 5 mg Heparin Sodium (Porcine) (Heparin) 5,000 units SC Q8 ED PRN Reason: Protocol Last Admin: 05/15/18 05:58 Dose: 5,000 units Insulin Human Regular (Humulin R) 0 units SC ACHS ED PRN Reason: Protocol Last Admin: 05/15/18 08:46 Dose: 1 unit Methylprednisolone (Solu-Medrol) 60 mg IVP Q12 [facility] Last Admin: 05/15/18 10:06 Dose: Not Given Ondansetron HCl (Zofran Tab) 4 mg PO Q8H PRN PRN Reason: Nausea/Vomiting Pantoprazole Sodium (Protonix Ec Tab) 40 mg PO DAILY [facility] Last Admin: 05/15/18 09:59 Dose: 40 mg Polyethylene Glycol (Miralax) 17 gm PO DAILY [facility] Last Admin: 05/15/18 10:02 Dose: 17 gm Spironolactone (Aldactone) 25 mg PO DAILY [facility] Last Admin: 05/15/18 09:51 Dose: 25 mg - Labs Labs: 05/15/18 06:30 05/15/18 06:30 PT 21.4 SECONDS (9.4-12.5) H 05/09/18 17:00 INR 1.85 05/09/18 17:00 APTT 30.9 Seconds (25.1-36.5) 05/09/18 17:00 - Constitutional Appears: No Acute Distress - Head Exam Head Exam: ATRAUMATIC, NORMOCEPHALIC - ENT Exam ENT Exam: Mucous Membranes Dry - Respiratory Exam Respiratory Exam: Accessory Muscle Use, Decreased Breath Sounds. absent: Wheezes - Cardiovascular Exam Cardiovascular Exam: REGULAR RHYTHM, +S1, +S2 - GI/Abdominal Exam GI & Abdominal Exam: Soft, Normal Bowel Sounds. absent: Distended, Tenderness - Extremities Exam Extremities Exam: Pedal Edema - Neurological Exam Neurological Exam: Awake - Psychiatric Exam Psychiatric exam: Depressed Assessment and Plan - Assessment and Plan (Free Text) Assessment: 52 year old male with a PMHx of COPD, DM2, HTN, HLD, CHF, CAD w/ stent, lumbar radiculopathy, gout, brought by EMS for respiratory distress 2/2 CHF exacerbation likely due to home medication non-compliance. Plan: Respiratory Distress 2/2 CHF exacerbation - Cardiac cath at [facility] in 12/[address] Judge: EF 30% and LAD lesion 80%. [employer] provided however patient non-compliant and no cardiology f/u - proBNP 2220 in ED - pt continues to wheeze, noncompliant with bipap - O2 sat: 93% on bipap - ECHO: mild concentric LVH, systolic function moderately impaired, septal hypokinesis, mild MR, moderate TR, mild pulmonary HTN, aortic root mildly enlarged - ABG 05/12 : pCO2 57 from 68, pO2 71 from 66, pH 7.35 from 7.23 - CXR: moderate CHF, significant cardiomegaly - CT head: no active disease - continue bipap, pt non compliant overnight - continue lasix to 40mg IV BID (hold parameters: SBP<100) - continue solumedrol 60mg q12 - continue advair BID - duonebs q6h ed - Head of bed 30 degrees - nasal cannula 3L/min - I/Os: 2160/3500 - Cardiology consulted, Dr. Suarez- no intervention at this time, continue current medication regimen - Pulm consulted, Dr. Eduardo - recs appreciated - PT: recommend subacute rehab - [facility] [employer] [facility]: continue dysphagia therapy - counseled pt on importance of compliance with bipap Medication non-compliance - pt non compliant with home medications and does not attend PMD appts - Girlfriend Nita called today, said he is very difficult at home - pt requested to transfer hospitals or sign out today, counseled him on importance of staying to complete treatment - Social Work on board - Palliative care consulted, f/u recs - Psychiatry consulted, Dr. Heaton - no further inpatient recs at this time HIV 1 ab positive - Patient's girlfriend brought home meds, including Combivir (lamivudine/ zidovudine) which he denied being his medication - HIV-1 ab positive, HIV-2 ab negative, HIV 4th gen positive - CD4 747 - viral load not detected - consider holding therapy at this time, as patient is unreliable - ID Consulted, Dr. Yaneli augustin appreciated HTN - BP 134/94 today - continue coreg 12.5mg po bid, aldactone 25mg po qd - monitor - Cardiology consulted, Dr. Grace augustin appreciated Leukocytosis - WBC 9.4 today - BCx negative x4 - continue vantin, as per ID - continue to monitor - ID consulted, Dr. Rodrigue augustin appreciated Suspect Arrythmia - home medication includes eliquis 5mg po bid, held - repeat EKG 05/10: sinus arrythmia with pulmonary disease, prolonged QT - PMD at [facility] contacted, expecting records to be faxed Scrotal Edema - likely secondary to CHF, anasarca, pt reports longstanding history - US testes: scrotal wall edema, small b/l hydroceles, no torsion or mass - continue lasix to 40mg IV BID - elevate testes, as per Uro - Urology Consulted: Dr. Raghav augustin appreciated CAD - stent placed in 2014 - Cardiac cath at [facility] in 12/[address] Judge: EF 30% and LAD lesion 80%. [employer] provided however patient non-compliant and no cardiology f/u - Trop negative x2 - EKG 05/10: sinus arrythmia with pulmonary disease, prolonged QT - Cardiology consulted, Dr. Suarez- no intervention at this time, continue current medication regimen COPD - smokes 2 packs per day - home medications: ventolin and flovent, reports noncompliance - pt noncompliant with bipap - continue bipap, monitor breathing - continue solumedrol 60mg q12 - continue advair BID - duoneb q6h ed - Pulm Consulted, Dr. Magaly augustin appreciated DM2 - home medications: metformin 500mg po bid, reports noncompliance - accucheck q6h, RISS low dose - FSG 05/14 to 05/15: 206, 183, 171, 206 - HbA1c 7.2 - UA: small leukocyte HLD - start home medication: lipitor 20mg po qd - lipid panel 05/10: TG 66, Cholesterol 86, LDL 44, HDL 24 Microcytic Anemia - likely chronic/multifactorial - Hb 05/15 9.2 (baseline per chart ~10.5 from 12/2017) - Iron workup 05/10: Fe 10 (low), TIBC 171 (low), %sat 6 (low), ferritin 16.8 - vitamin b12 >1000, folate 5.9 level - FOBT negative - f/u outpatient Prophylaxis - SCDs contraindicated - edema b/l - advance bite size diet - GI prophylaxis not indicated Case reviewed and discussed with Dr. Armas <Sneha Armas R - Last Filed: 05/16/18 08:48> Objective - Vital Signs/Intake and Output Vital Signs (last 24 hours): Temp Pulse Resp BP Pulse Ox 97.9 F 80 22 122/86 94 L 05/16/18 08:32 05/16/18 08:32 05/16/18 08:32 05/16/18 08:32 05/16/18 08:32 Intake and Output: 05/16/18 05/16/18 06:59 18:59 Intake Total 200 Output Total 1950 Balance -1750 - Medications Medications: Current Medications Albuterol/Ipratropium (Duoneb 3 Mg/0.5 Mg (3 Ml) Ud) 3 ml IH [id number] [facility] Last Admin: 05/16/18 08:32 Dose: 3 ml Arformoterol Tartrate (Brovana) 15 mcg IH [id number] [facility] Last Admin: 05/16/18 08:33 Dose: 15 mcg Aspirin (Aspirin Chewable) 81 mg PO DAILY [facility] Last Admin: 05/15/18 10:00 Dose: 81 mg Atorvastatin Calcium (Lipitor) 20 mg PO HS [facility] Last Admin: 05/15/18 21:54 Dose: 20 mg Budesonide (Pulmicort Respules) 0.5 mg IH [id number] [facility] Last Admin: 05/16/18 08:33 Dose: 0.5 mg Carvedilol (Coreg) 12.5 mg PO BID [facility] Last Admin: 05/15/18 17:10 Dose: 12.5 mg Clonidine HCl (Catapres) 0.2 mg PO BID [facility] Last Admin: 05/15/18 17:11 Dose: 0.2 mg Dextrose (Dextrose 50% Inj) 0 ml IV STAT PRN; Protocol PRN Reason: Hypoglycemia Protocol Docusate Sodium (Colace) 100 mg PO TID [facility] Last Admin: 05/15/18 17:12 Dose: 100 mg Ferrous Sulfate (Feosol Liq) 300 mg PO TID [facility] Last Admin: 05/15/18 17:12 Dose: 300 mg Furosemide (Lasix) 40 mg PO DAILY [facility] Last Admin: 05/15/18 09:59 Dose: 40 mg Glipizide (Glucotrol) 5 mg PO ACB [facility] Last Admin: 05/15/18 08:46 Dose: 5 mg Heparin Sodium (Porcine) (Heparin) 5,000 units SC Q8 ED PRN Reason: Protocol Last Admin: 05/16/18 05:47 Dose: 5,000 units Insulin Human Regular (Humulin R) 0 units SC ACHS ED PRN Reason: Protocol Last Admin: 05/15/18 21:53 Dose: Not Given Methylprednisolone (Solu-Medrol) 60 mg IVP Q12 [facility] Last Admin: 05/15/18 21:54 Dose: 60 mg Ondansetron HCl (Zofran Tab) 4 mg PO Q8H PRN PRN Reason: Nausea/Vomiting Pantoprazole Sodium (Protonix Ec Tab) 40 mg PO DAILY [facility] Last Admin: 05/15/18 09:59 Dose: 40 mg Polyethylene Glycol (Miralax) 17 gm PO DAILY [facility] Last Admin: 05/15/18 10:02 Dose: 17 gm Spironolactone (Aldactone) 25 mg PO DAILY [facility] Last Admin: 05/15/18 09:51 Dose: 25 mg - Labs Labs: 05/16/18 05:30 05/16/18 05:30 PT 21.4 SECONDS (9.4-12.5) H 05/09/18 17:00 INR 1.85 05/09/18 17:00 APTT 30.9 Seconds (25.1-36.5) 05/09/18 17:00 Attending/Attestation - Attestation I have personally seen and examined this patient.: Yes I have fully participated in the care of the patient.: Yes I have reviewed all pertinent clinical information, including history, physical exam and plan: Yes Notes (Text): Patient seen and examined by me at 9:10AM with resident 8/26/18. Case including HPI, physical exam, and assessment and plan discussed with resident. Agree with above with following additions/corrections. Patient is a 52 year old male with past medical history significant for COPD, CAD, CHF, DM2, HTN, hperlipidemia, lumbar radiculopathy, and gout that presented to the emergency room with shortness of breath. Patient states he is feeling ok. Still feels short of breath. States he is not refusing the BIPAP. However, per nurse, patient wears BIPAP for 5 minutes and then removes it. Patient states he wants to get out of bed. He is also asking that we call his fiance to discuss his case. He denies any chest pain or palpitations. No headache or dizziness. No fevers or chills. No nausea, vomiting , or abdominal pain. No dysuria. Physical exam: Gen: Awake and alert sitting up in bed in mild respiratory distress HEENT: Normocephalic, atraumatic. Extraocular muscles intact, pupils equal reactive. No scleral icterus. Oropharynx is pink and moist. Neck is supple. Cardiovascular: Normal rhythm. Normal S1, S2. No murmurs, rubs, or gallops appreciated Pulmonary: Tachypenic when speaking. Using accessory muscles. Decreased breath sounds. No rhonchi, rales, or wheezing appreciated today. Gastrointestinal: Soft, nontender, nondistended. Globular abdomen. Positive bowel sounds all 4 quadrants, no guarding. Musculoskeletal: Moves all extremities. No calf tenderness. Positive lower extremity edema Central nervous system: AAO x 3. Dermatologic: Skin warm and dry, bilateral lower extremity chronic stasis color changes. Assessment and plan: Patient is a 52 year old male with past medical history significant for COPD, CAD, CHF, DM2, HTN, hperlipidemia, lumbar radiculopathy, and gout that presented to the emergency room with shortness of breath. 1. Respiratory distress. Multifactorial. Likely secondary to acute on chronic systolic CHF exacerbation, COPD, and non compliance with medications. Patient again encouraged to use BIPAP. Continue Coreg, Lasix, and Aldactone. 2-D echo per griddle cook shows left ventricle is normal size, mild concentric left ventricular hypertrophy, systolic function is moderately to severely impaired, septal hypokinesis, EF approximately 39% (please see official read for full details). Chest xray shows severe vascular congestion. Cardiology following, recommendations appreciated. Pulmonary following, recommendations appreciated. Continue to monitor I's and O's. Monitor daily weights. 2. COPD exacerbation. Importance of using BIPAP again discussed with patient. Continue Solu-Medrol. Continue Brovana, Pulmicort, and nebulizer treatments. Continue O2 via nasal cannula. Pulmonary following, recommendations appreciated. 3. Medication noncompliance. Importance of compliance discussed with patient at length. Palliative care consulted, follow-up recommendations. Psychiatry following, recommendations appreciated. 4. HIV 1 antibody positive, HIV fourth generation positive. CD4 count 747. Viral load not detected. ID following, recommendations appreciated. 5. Abnormal urinalysis. ID following, patient on Vantin. 6. CAD s/p stent placement. Patient non-compliant with medications and follow up with doctors. Contine Coreg, ASA 7. Hypertension. Continue Clonidine and Coreg 8. DM2. Continue insulin sliding scale and glipizide. Continue to monitor accuchecks. 9. Hyperlipidemia. Continue Lipitor 10. Chronic anemia. No signs of acute bleeding. H&H stable. Continue to monitor. Continue ferrous sulfate 11. Scrotal edema. Likely secondary to anasarca. Testicular ultrasound per radiologist shows diffuse scrotal wall edema, no drainable fluid collection, small bilateral hydroceles, no evidence for testicular torsion or mass. Urology following, recommendations appreciated. 12. GI/DVT prophylaxis. Protonix and heparin Case was discussed in detail with the patient regarding current diagnosis and treatment plan.
--- NOTE | 2018-05-15 11:54 | PN ---
Copied To: Harris Todd MD Attending MD: Harris Todd MD DATE: 05/15/2018 SUBJECTIVE: The patient is in bed, in no acute distress, nontoxic. PHYSICAL EXAMINATION: VITAL SIGNS: On exam, temperature is 98, blood pressure is 130/90, respiratory rate of 20. HEENT: Examination of HEENT is unremarkable. NECK: Supple. LUNGS: Have decreased breath sounds. HEART: Normal S1, S2. ABDOMEN: Soft. LABORATORY DATA: Laboratory examination reveals the white count is 9.4, hemoglobin of 9, platelets of 284. Chemistries reveals a BUN of 46, creatinine of 1.1 and procalcitonin 0.05. Urinalysis is noted, 1-3 wbc's and T cells are noted to be normal. HIV is reactive, fourth generation and the antibody of 1 HIV is positive, HIV antibody 2 is negative. The PCR is undetectable. Review of orders reveals the patient to be on p.o. Vantin. Dr. Armas's progress note from yesterday is reviewed. ASSESSMENT AND PLAN: A 52-year-old male with morbid obesity with body mass index of 43 with hypoxia, hypercapnic respiratory failure due to acute decompensated congestive heart failure and possible chronic obstructive lung disease, no evidence of immunodeficiency virus with a chronic congestive heart failure, diabetes. Viral load is undetectable. The CD-4 count is normal. Currently, the patient was off of antibiotics, was started on Vantin. We will discuss with the primary team. Harris Todd MD
[2018-05-16] MEDS: Albuterol-Ipratrop 3 mg / 0.5 (3 ml) UD IH SCH ×4 (02:40→19:24)
[2018-05-16 06:32] LABS: GRAN # 5.18 (1.4-6.5); HEMOGLOBIN 8.8 g/dL (14.0-18.0); LYMPH # 2.2 (1.2-3.4); LYMPH % 27.9 % (22.0-35.0); MEAN CELL VOLUME 73.5 fl (80.0-105.0); MEAN CORPUSCULAR HEMOGLOBIN 19.5 pg (25.0-35.0); MEAN CORPUSCULAR HGB CONC 26.5 g/dl (31.0-37.0); MONO # 0.5 (0.1-0.6); MONO % 6.1 % (1.0-6.0); PLATELET COUNT 267 10^3/uL (120.0-450.0); RBC 4.52 10^6/uL (3.5-6.1); RED CELL DISTRIBUTION WIDTH 22.5 % (11.5-14.5); WHITE BLOOD COUNT 7.9 10^3/ul (4.5-11.0)
[2018-05-16 06:41] LABS: ALB/GLOB RATIO 0.9 (1.1-1.8); ALBUMIN 2.9 g/dL (3.0-4.8); ALT/SGPT 27 U/L (7-56); AST/SGOT 27 U/L (17-59); BLOOD UREA NITROGEN 47 mg/dL (7-21); CALCIUM 8.7 mg/dL (8.4-10.5); GFR NON-AFRICAN AMERICAN > 60
[2018-05-16] MEDS: Insulin Regular 1 UNITS/0.01 ML ML SC SCH ×4 (08:09→22:15)
[2018-05-16] MEDS: Budesonide 0.5 mg/2 ml Inhal Susp UD IH SCH ×2 (08:33→19:24)
[2018-05-16] MEDS: Arformoterol 15 mcg/2 ml Inh Sol IH SCH ×2 (08:33→19:24)
[2018-05-16] MEDS: Ferrous Sulfate 300 mg/5 mL Liq UD PO SCH ×3 (11:07→18:01)
[2018-05-16] MEDS: POLYETHYLENE GLYCOL 3350 17 GM/Dose PACKET PO SCH (11:07)
[2018-05-16] MEDS: Pantoprazole 40 mg EC Tab PO SCH (11:07)
--- NOTE | 2018-05-16 13:27 | RAD ---
Date of service: 05/16/2018 HISTORY: SOB COMPARISON: 05/13/2018 FINDINGS: LUNGS: Complete opacification on the left. Perihilar infiltrate on the right PLEURA: No significant pleural effusion identified, no pneumothorax apparent. CARDIOVASCULAR: Normal. OSSEOUS STRUCTURES: No significant abnormalities. VISUALIZED UPPER ABDOMEN: Normal. OTHER FINDINGS: None. IMPRESSION: Complete opacification on the left. Perihilar infiltrate on the right
--- NOTE | 2018-05-16 14:06 | CP.PCM.PN ---
<Rc Wong - Last Filed: 05/16/18 18:57> Subjective - Date & Time of Evaluation Date of Evaluation: 05/16/18 Time of Evaluation: 15:53 - Subjective Subjective: Rc Wong, PGY-1 Progress Note for Hospitalist Team Patient seen and examined at bedside this morning. No acute events overnight. Patient reports he slept well admits to good appetite. Tolerated Bipap well overnight. CXR today showed complete opacification of the left lung with perihilar infiltrate of the right lung; will be transferred to the ICU for monitoring. Admits to some SOB, denies CP, abdominal pain, urinary complaints, back pain and fevers. Objective - Vital Signs/Intake and Output Vital Signs (last 24 hours): Temp Pulse Resp BP Pulse Ox 98 F 78 18 136/63 94 L 05/16/18 12:08 05/16/18 12:08 05/16/18 12:08 05/16/18 12:08 05/16/18 08:32 Intake and Output: 05/16/18 05/16/18 06:59 18:59 Intake Total 200 Output Total 1950 Balance -1750 - Medications Medications: Current Medications Albuterol/Ipratropium (Duoneb 3 Mg/0.5 Mg (3 Ml) Ud) 3 ml IH [id number] [facility] Last Admin: 05/16/18 13:27 Dose: 3 ml Arformoterol Tartrate (Brovana) 15 mcg IH [id number] [facility] Last Admin: 05/16/18 08:33 Dose: 15 mcg Aspirin (Aspirin Chewable) 81 mg PO DAILY [facility] Last Admin: 05/16/18 11:07 Dose: 81 mg Atorvastatin Calcium (Lipitor) 20 mg PO HS [facility] Last Admin: 05/15/18 21:54 Dose: 20 mg Budesonide (Pulmicort Respules) 0.5 mg IH [id number] [facility] Last Admin: 05/16/18 08:33 Dose: 0.5 mg Carvedilol (Coreg) 12.5 mg PO BID [facility] Last Admin: 05/16/18 11:08 Dose: 12.5 mg Clonidine HCl (Catapres) 0.2 mg PO BID [facility] Last Admin: 05/16/18 11:08 Dose: 0.2 mg Dextrose (Dextrose 50% Inj) 0 ml IV STAT PRN; Protocol PRN Reason: Hypoglycemia Protocol Docusate Sodium (Colace) 100 mg PO TID [facility] Last Admin: 05/16/18 13:41 Dose: Not Given Ferrous Sulfate (Feosol Liq) 300 mg PO TID [facility] Last Admin: 05/16/18 13:40 Dose: Not Given Furosemide (Lasix) 40 mg PO DAILY [facility] Last Admin: 05/16/18 11:08 Dose: 40 mg Furosemide (Lasix) 40 mg IVP Q12 [facility] Glipizide (Glucotrol) 5 mg PO ACB [facility] Last Admin: 05/16/18 08:19 Dose: 5 mg Heparin Sodium (Porcine) (Heparin) 5,000 units SC Q8 ED PRN Reason: Protocol Last Admin: 05/16/18 13:40 Dose: 5,000 units Insulin Human Regular (Humulin R) 0 units SC ACHS [facility] PRN Reason: Protocol Last Admin: 05/16/18 11:19 Dose: 1 unit Methylprednisolone (Solu-Medrol) 60 mg IVP Q12 [facility] Last Admin: 05/16/18 11:06 Dose: 60 mg Ondansetron HCl (Zofran Tab) 4 mg PO Q8H PRN PRN Reason: Nausea/Vomiting Pantoprazole Sodium (Protonix Ec Tab) 40 mg PO DAILY [facility] Last Admin: 05/16/18 11:07 Dose: 40 mg Polyethylene Glycol (Miralax) 17 gm PO DAILY [facility] Last Admin: 05/16/18 11:07 Dose: 17 gm Spironolactone (Aldactone) 25 mg PO DAILY [facility] Last Admin: 05/16/18 11:07 Dose: 25 mg - Labs Labs: 05/16/18 05:30 05/16/18 05:30 PT 21.4 SECONDS (9.4-12.5) H 05/09/18 17:00 INR 1.85 05/09/18 17:00 APTT 30.9 Seconds (25.1-36.5) 05/09/18 17:00 - Head Exam Head Exam: ATRAUMATIC, NORMAL INSPECTION - Eye Exam Eye Exam: EOMI Pupil Exam: PERRL - ENT Exam ENT Exam: Mucous Membranes Moist - Respiratory Exam Respiratory Exam: absent: Respiratory Distress Additional comments: poor inspiratory effort, minimal wheezing - Cardiovascular Exam Cardiovascular Exam: RRR, +S1, +S2 - GI/Abdominal Exam GI & Abdominal Exam: Normal Bowel Sounds. absent: Firm, Guarding - Extremities Exam Extremities Exam: Normal Inspection. absent: Tenderness - Neurological Exam Neurological Exam: Alert, Awake, Oriented x3 - Skin Skin Exam: Normal Color, Warm Assessment and Plan - Assessment and Plan (Free Text) Assessment: This is a 52 year old male with PMH of CHF with last EF this month showing 39%, DM, COPD, CAD with stents, gout, HTN, and HLD presenting for management of acute hypercapnic respiratory failure 2/2 CHF exacerbation. Will be transferred to ICU today after CXR showed opacification of the left lung. Plan: Acute hypercapnic respiratory failure 2/2 CHF exacerbation -refused Bipap on 05/14, tolerated bipap well overnight -Echo on 05/10 showed mild concentric LVH, systolic function moderately impaired , septal hypokinesis, mild MR, moderate TR, mild pulmonary HTN, aortic root mildly enlarged -CT chest today showed complete left lung collapse with volume loss secondary to endobronchial lesion vs. secretins in the distal left mainstem bronchus. Large right and small to moderate left pleural effusions. Diffuse anasarca with extensive abdominal body wall edema. -CXR today showed opacification of the left lung -duonebs q6 -lasix to 40mg IV BID -solumedrol 60mg q12 -advair BID -duonebs q6h ed -NC 6 liters O2 -coreg 12.5mg BID -Cardiology on consult, Dr. Suarez -Pulm on consult, Dr. Eduardo History of HIV -tested positive for HIV 1 ab and HIV 4th gen positive -unclear if patient previously diagnosed with HIV, patient denies taking home HIV meds -CD4 747, viral load not detected -ID on consult, Dr. Yaneli Lanza -likely 2/2 CHF exacerbation - improved -urology consulted, Dr. Zimmerman CAD -Cardiac cath in 12/2017 revealed EF 30% and LAD lesion 80%. Questionble follow up with cardiology -patient denies use of life vest -trop negative x2 on 05/09 -ASA 81 -Cardiology on consult, Dr. Suarez COPD -duonebs q6h ed -solumedrol 60mg q12 -advair BID -NC 6 liters O2 -Pulmonology on consult, Dr. Eduardo Diabetes -accuchecks -glipizide 5mg -insulin human regualar ACHS -glucose 158 today - HbA1c 7.2 PPX with SDC and protonix Case reviewed and discussed with attending, Dr. Armas <Sneha Armas R - Last Filed: 05/17/18 07:21> Objective - Vital Signs/Intake and Output Vital Signs (last 24 hours): Temp Pulse Resp BP Pulse Ox 98.3 F 78 18 106/67 94 L 05/17/18 00:01 05/17/18 07:17 05/16/18 12:08 05/16/18 21:41 05/16/18 08:32 Intake and Output: 05/17/18 05/17/18 06:59 18:59 Intake Total 420 Output Total 1300 Balance -880 - Medications Medications: Current Medications Acetylcysteine (Acetylcysteine 20%) 5 ml IH QIDRESP [facility] Last Admin: 05/16/18 19:24 Dose: 5 ml Albuterol/Ipratropium (Duoneb 3 Mg/0.5 Mg (3 Ml) Ud) 3 ml IH [id number] [facility] Last Admin: 05/17/18 07:10 Dose: 3 ml Albuterol/Ipratropium (Duoneb 3 Mg/0.5 Mg (3 Ml) Ud) 3 ml IH Q2H PRN PRN Reason: Shortness of Breath Arformoterol Tartrate (Brovana) 15 mcg IH [id number] [facility] Last Admin: 05/17/18 07:10 Dose: 15 mcg Aspirin (Aspirin Chewable) 81 mg PO DAILY [facility] Last Admin: 05/16/18 11:07 Dose: 81 mg Atorvastatin Calcium (Lipitor) 20 mg PO HS [facility] Last Admin: 05/16/18 22:14 Dose: 20 mg Budesonide (Pulmicort Respules) 0.5 mg IH [id number] [facility] Last Admin: 05/17/18 07:10 Dose: 0.5 mg Carvedilol (Coreg) 12.5 mg PO BID [facility] Last Admin: 05/16/18 18:03 Dose: 12.5 mg Clonidine HCl (Catapres) 0.2 mg PO BID [facility] Last Admin: 05/16/18 18:02 Dose: 0.2 mg Dextrose (Dextrose 50% Inj) 0 ml IV STAT PRN; Protocol PRN Reason: Hypoglycemia Protocol Docusate Sodium (Colace) 100 mg PO TID [facility] Last Admin: 05/16/18 18:03 Dose: 100 mg Ferrous Sulfate (Feosol Liq) 300 mg PO TID [facility] Last Admin: 05/16/18 18:01 Dose: 300 mg Furosemide (Lasix) 40 mg PO DAILY [facility] Last Admin: 05/16/18 11:08 Dose: 40 mg Furosemide (Lasix) 40 mg IVP Q12 [facility] Last Admin: 05/16/18 21:41 Dose: 40 mg Glipizide (Glucotrol) 5 mg PO ACB [facility] Last Admin: 05/16/18 08:19 Dose: 5 mg Guaifenesin (Robitussin) 100 mg PO Q4H PRN PRN Reason: Cough Heparin Sodium (Porcine) (Heparin) 5,000 units SC Q8 [facility] PRN Reason: Protocol Last Admin: 05/17/18 05:25 Dose: 5,000 units Vancomycin HCl (Vancomycin 1gm) 1 gm in 250 mls @ 167 mls/hr IVPB DAILY [facility] PRN Reason: Protocol Last Admin: 05/16/18 18:06 Dose: 167 mls/hr Meropenem (Merrem Iv 1 Gm Premix) 50 mls @ 100 mls/hr IVPB Q8 [facility] PRN Reason: Protocol Stop: 05/25/18 19:01 Last Admin: 05/17/18 05:25 Dose: 100 mls/hr Insulin Human Regular (Humulin R) 0 units SC ACHS [facility] PRN Reason: Protocol Last Admin: 05/16/18 18:01 Dose: 2 unit Methylprednisolone (Solu-Medrol) 60 mg IVP Q12 [facility] Last Admin: 05/16/18 21:40 Dose: 60 mg Ondansetron HCl (Zofran Tab) 4 mg PO Q8H PRN PRN Reason: Nausea/Vomiting Pantoprazole Sodium (Protonix Ec Tab) 40 mg PO DAILY [facility] Last Admin: 05/16/18 11:07 Dose: 40 mg Polyethylene Glycol (Miralax) 17 gm PO DAILY [facility] Last Admin: 05/16/18 11:07 Dose: 17 gm Spironolactone (Aldactone) 25 mg PO DAILY [facility] Last Admin: 05/16/18 11:07 Dose: 25 mg - Labs Labs: 05/17/18 05:40 05/17/18 05:40 PT 21.4 SECONDS (9.4-12.5) H 05/09/18 17:00 INR 1.85 05/09/18 17:00 APTT 30.9 Seconds (25.1-36.5) 05/09/18 17:00 Attending/Attestation - Attestation I have personally seen and examined this patient.: Yes I have fully participated in the care of the patient.: Yes I have reviewed all pertinent clinical information, including history, physical exam and plan: Yes Notes (Text): Patient seen and examined by me at 11:55 AM and 2:40 PM with resident 05/16/18. Case including HPI, physical exam, and assessment and plan discussed with resident. Agree with above with following additions/corrections. Patient is a 52 year old male with past medical history significant for COPD, CAD, CHF, DM2, HTN, hperlipidemia, lumbar radiculopathy, and gout that presented to the emergency room with shortness of breath. Patient states he is feels ok. Denies feeling short of breath but appears uncomfortable. Patient is using BIPAP for very short periods intermittently. He denies any chest pain or palpitations. No headache or dizziness. No fevers or chills. No nausea, vomiting, or abdominal pain. No dysuria. States he has pain in his left hip and knee from a previous accident that makes it hard for him to move. Physical exam: Gen: Awake and alert sitting up in bed in mild respiratory distress HEENT: Normocephalic, atraumatic. Extraocular muscles intact, pupils equal reactive. No scleral icterus. Oropharynx is pink and moist. Neck is supple. Cardiovascular: Normal rhythm. Normal S1, S2. No murmurs, rubs, or gallops appreciated Pulmonary: Tachypenic when speaking. Using accessory muscles. Decreased breath sounds. No rhonchi, rales, or wheezing appreciated today. Gastrointestinal: Soft, nontender, nondistended. Globular abdomen. Positive bowel sounds all 4 quadrants, no guarding. Musculoskeletal: Moves all extremities. No calf tenderness. Positive lower extremity edema Central nervous system: AAO x 3. Dermatologic: Skin warm and dry, bilateral lower extremity chronic stasis color changes. Assessment and plan: Patient is a 52 year old male with past medical history significant for COPD, CAD, CHF, DM2, HTN, hperlipidemia, lumbar radiculopathy, and gout that presented to the emergency room with shortness of breath. 1. CO2 narcosis. CO2 on ABG 81. Patient again not wearing BiPAP as instructed. Patient to be transferred to ICU. 2. Complete opacification of left lung on chest xray. Pending chest CT results. Being transferred to ICU. 3. Respiratory distress. Multifactorial. Likely secondary to acute on chronic systolic CHF exacerbation, COPD, and non compliance with medications. Worsening now secondary to CO2 narcosis and left lung opacification. Patient again encouraged to use BIPAP. Continue Coreg, Lasix, and Aldactone. Chest CT results pending. 2-D echo per cellulose insulation helper shows left ventricle is normal size , mild concentric left ventricular hypertrophy, systolic function is moderately to severely impaired, septal hypokinesis, EF approximately 39% (please see official read for full details. Cardiology following, recommendations appreciated. Pulmonary following, recommendations appreciated. Continue to monitor I's and O's. Monitor daily weights. 4. COPD exacerbation. Importance of BIPAP again discussed with patient. Continue Solu-Medrol. Continue Brovana, Pulmicort, and nebulizer treatments. Continue O2 via nasal cannula. Pulmonary following, recommendations appreciated. 5. Medication noncompliance. Importance of compliance discussed with patient at length. Palliative care consulted, follow-up recommendations. Psychiatry following, recommendations appreciated. 6. HIV 1 antibody positive, HIV fourth generation positive. CD4 count 747. Viral load not detected. ID following, recommendations appreciated. 7. Abnormal urinalysis. ID following, recommendations appreciated. S/P antibiotic treatment. 8. CAD s/p stent placement. Patient non-compliant with medications and follow up with doctors. Contine Coreg, ASA 9. Hypertension. Continue Clonidine, lasix, and Coreg 10. DM2. Continue insulin sliding scale and glipizide. Continue to monitor accuchecks. 11. Hyperlipidemia. Continue Lipitor 12. Chronic anemia. No signs of acute bleeding. H&H stable. Continue to monitor. Continue ferrous sulfate 13. Scrotal edema. Likely secondary to anasarca. Testicular ultrasound per radiologist shows diffuse scrotal wall edema, no drainable fluid collection, small bilateral hydroceles, no evidence for testicular torsion or mass. Urology following, recommendations appreciated. 14. GI/DVT prophylaxis. Protonix and heparin Case was discussed in detail with the patient, cellulose insulation helper, and paint roller covers supervisor regarding current diagnosis and treatment plan.
--- NOTE | 2018-05-16 14:43 | PN ---
Copied To: Beny Salgado MD Attending MD: Beny Salgado MD DATE: 05/16/2018 SUBJECTIVE: The patient refuses to have BiPap. He is still short of breath and desaturating easily. PHYSICAL EXAMINATION: VITAL SIGNS: Blood pressure 136/84, heart rate 91, temperature 97.9, respiration 22. HEENT: Pale conjunctivae. CHEST: Diffuse bilateral rhonchi. HEART: S1, S2 regular. ABDOMEN: Soft. EXTREMITIES: 1+ pitting edema. LABORATORY DATA: SMA-7 is within normal limits except for glucose of 158 and BUN of 47. Today's hemoglobin and hematocrit 8.8 and 33.2, white count and platelet count are within normal limits. Serology HIV 1 antibody is positive. HIV 1 and 2 antigen/antibody fourth generation is reactive. HIV-2 antibody is negative. The most recent chest x-ray 3 days ago, on 05/13/2018, reported moderate cardiomegaly and severe vascular congestion. ASSESSMENT 1. Biventricular failure. 2. Sleep apnea. 3. Diabetes mellitus. 4. Hypertension. 5. Anemia. RECOMMENDATIONS: Continue Aldactone 25 mg once a day, aspirin 81 mg once a day, clonidine 0.2 mg twice a day, Coreg 12.5 mg twice a day, subcutaneous heparin 5000 units every 8 hours, Solu-Medrol 60 mg intravenously twice a day. Obtain a portable chest x-ray and restart IV Lasix at 40 mg twice a day. Beny Salgado MD
[2018-05-16 14:54] LABS: ARTERIAL BLOOD GAS HCO3 35.5 mmol/L (21-28); ARTERIAL BLOOD GAS HEMOGLOBIN 8.9 g/dL (11.7-17.4); ARTERIAL BLOOD GAS O2 CAPACITY 12.3 mL/dl (16-24); ARTERIAL BLOOD GAS O2 CONTENT 11.7 ML/dl (15-23); ARTERIAL BLOOD GAS PH 7.25 (7.35-7.45)
[2018-05-16 14:57] LABS: ARTERIAL BLOOD GAS PCO2 81 mm/Hg (35-45)
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
[2018-05-16] MEDS ORDERED: Albuterol-Ipratrop 3 mg / 0.5 (3 ml) UD IH PRN (16:39)
--- NOTE | 2018-05-16 17:04 | CT ---
Date of service: 05/16/2018 PROCEDURE: CT Chest without contrast HISTORY: SOB COMPARISON: None available. TECHNIQUE: Contiguous axial images were obtained through the chest without intravenous contrast enhancement. Sagittal and coronal reconstructions were performed. Radiation dose (DLP): 939.2 mGy-cm. This CT exam was performed using one or more of the following dose reduction techniques: Automated exposure control, adjustment of the mA and/or kV according to patient size, and/or use of iterative reconstruction technique. FINDINGS: LUNGS: Complete left lung collapse with volume loss. Endobronchial lesion versus secretions in the distal left mainstem bronchus. MEDIASTINUM: Unremarkable thoracic aorta. No aneurysm. Cardiomegaly. Small pericardial effusion. Main pulmonary artery unremarkable. No vascular congestion. No lymphadenopathy. PLEURA: Large right and small to moderate left pleural effusions. No pneumothorax. BONES: No fracture. No destructive lesion. UPPER ABDOMEN: Small amount of perihepatic and perisplenic ascites. OTHER FINDINGS: Diffuse anasarca with extensive abdominal body wall edema. IMPRESSION: Complete left lung collapse with volume loss secondary to endobronchial lesion versus secretions in the distal left mainstem bronchus. Large right and small to moderate left pleural effusions. Small amount of perihepatic and perisplenic ascites. Diffuse anasarca with extensive abdominal body wall edema.
[2018-05-16] MEDS ORDERED: guaiFENesin 100 mg/5 ml Syrup UD PO PRN (17:28)
[2018-05-16] MEDS ORDERED: Piperacillin/Tazobact 3.375 gm 100 ML IVPB SCH (18:00)
[2018-05-16] MEDS: Vancomycin 1gm in NS 250ml 1 GM/250 ML BAG IVPB SCH (18:06)
[2018-05-16] MEDS: Meropenem IV 1 gm in NS 50 ML IVPB SCH ×2 (19:00→21:54)
[2018-05-16] MEDS: Acetylcysteine 20% Inhal Soln (4ml) IH SCH (19:24)
[2018-05-16 23:30] LABS: ARTERIAL BLOOD GAS O2 SAT 93.7 % (95-98); ARTERIAL BLOOD GAS PCO2 68 mm/Hg (35-45); ARTERIAL BLOOD GAS PH 7.32 (7.35-7.45); ARTERIAL BLOOD GAS TCO2 37.1 mmol.L (22-28)
--- NOTE | 2018-05-17 00:26 | PN ---
Copied To: Harris Todd MD Attending MD: Harris Todd MD DATE: 05/16/2018 SUBJECTIVE: The patient is seen earlier today in the room 262, bed 1. He continues to do poorly. He was short of breath. PHYSICAL EXAMINATION: VITAL SIGNS: On exam, temperature 98, blood pressure is 111/50, respiratory rate of 18, heart rate of 87. HEENT: Examination of HEENT is unremarkable. NECK: Supple. LUNGS: Have decreased breath sounds. HEART: Normal S1, S2. ABDOMEN: Soft, nontender. LABORATORY DATA: Laboratory examination reveals a white count of 7.9, hemoglobin of 8, platelets of 267. Chemistries are noted. The patient's procalcitonin is 0.05 and that is on 05/10/2018. Urinalysis is noted and toxicology is reviewed and immunology reveals T cells of 51% at 727. HIV is reactive. However, the PCR is negative. Microbiology reveals the patient's blood cultures are negative. Naris cultures are negative. Review of orders reveals the patient is on vancomycin and Zosyn. The patient had a CAT scan of the chest today which showed diffuse anasarca, extensive abdominal wall edema. Small amount of perihepatic and perisplenic ascites, large right and moderate left effusion and left lung collapse and volume secondary to endobronchial lesion versus secretions in the distal left mainstay. Dr. Mcintyre's consultation is reviewed. Since the patient was seen earlier, the patient now has been transferred to the ICU. Review of orders revealed procalcitonin has been ordered and the patient was started on vanco and Zosyn. ASSESSMENT AND PLAN: A 52-year-old male admitted with initially morbid obesity, body mass index of 43 and hypoxia, hypercapnic respiratory failure due to acute decompensated congestive heart failure and possible chronic obstructive lung disease. No evidence of renal insufficiency with good T-cells, undetectable human immunodeficiency virus, now has sepsis with healthcare-associated pneumonia. We will use vancomycin and meropenem pending panculture results and procalcitonin and follow closely. Harris Todd MD
[2018-05-17] MEDS: Albuterol-Ipratrop 3 mg / 0.5 (3 ml) UD IH SCH ×3 (01:47→13:07)
[2018-05-17] MEDS: Meropenem IV 1 gm in NS 50 ML IVPB SCH ×3 (05:25→21:53)
[2018-05-17 06:11] LABS: GRAN # 4.64 (1.4-6.5); GRAN % 66.2 % (50.0-68.0); HEMOGLOBIN 8.9 g/dL (14.0-18.0); LYMPH # 1.9 (1.2-3.4); LYMPH % 26.9 % (22.0-35.0); MEAN CELL VOLUME 75.1 fl (80.0-105.0); MEAN CORPUSCULAR HEMOGLOBIN 19.8 pg (25.0-35.0); MEAN CORPUSCULAR HGB CONC 26.3 g/dl (31.0-37.0); MEAN PLATELET VOLUME 8.9 fl (7.0-11.0); MONO # 0.5 (0.1-0.6); MONO % 6.9 % (1.0-6.0); RBC 4.5 10^6/uL (3.5-6.1); RED CELL DISTRIBUTION WIDTH 23.6 % (11.5-14.5)
[2018-05-17 06:19] LABS: ALB/GLOB RATIO 0.9 (1.1-1.8); ALBUMIN 3.2 g/dL (3.0-4.8); ALT/SGPT 27 U/L (7-56); AST/SGOT 43 U/L (17-59); BLOOD UREA NITROGEN 52 mg/dL (7-21); CALCIUM 8.9 mg/dL (8.4-10.5); GFR NON-AFRICAN AMERICAN > 60
[2018-05-17 06:45] LABS: URINE BILIRUBIN NEGATIVE (NEGATIVE); URINE BLOOD MODERATE (NEGATIVE); URINE GLUCOSE (UA) NEGATIVE (NEGATIVE); URINE LEUKOCYTE ESTERASE NEGATIVE Leu/uL (NEGATIVE); URINE PROTEIN NEGATIVE mg/dL (<30 mg/dL); URINE UROBILINOGEN 0.2 E.U./dL (<1 E.U./dL)
[2018-05-17 06:47] LABS: URINE APPEARANCE CLOUDY (CLEAR); URINE COLOR YELLOW (YELLOW)
[2018-05-17] MEDS: Budesonide 0.5 mg/2 ml Inhal Susp UD IH SCH ×2 (07:10→19:55)
[2018-05-17] MEDS: Arformoterol 15 mcg/2 ml Inh Sol IH SCH ×2 (07:10→19:55)
[2018-05-17 07:39] LABS: URINE AMORPHOUS SEDIMENT FEW; URINE BACTERIA MANY (NEG); URINE EPITHELIAL CELLS 0 - 2 /hpf (0-5); URINE RBC 15 - 20 /hpf (0-2)
[2018-05-17] MEDS: Insulin Regular 1 UNITS/0.01 ML ML SC SCH ×4 (07:50→22:00)
[2018-05-17 07:51] LABS: ARTERIAL BLOOD GAS HCO3 33.1 mmol/L (21-28); ARTERIAL BLOOD GAS HEMOGLOBIN 7.9 g/dL (11.7-17.4); ARTERIAL BLOOD GAS O2 CAPACITY 10.8 mL/dl (16-24); ARTERIAL BLOOD GAS O2 CONTENT 10.1 ML/dl (15-23); ARTERIAL BLOOD GAS O2 SAT 93.4 % (95-98); ARTERIAL BLOOD GAS PCO2 60 mm/Hg (35-45); ARTERIAL BLOOD GAS PH 7.35 (7.35-7.45); ARTERIAL BLOOD GAS TCO2 34.9 mmol.L (22-28)
--- NOTE | 2018-05-17 08:06 | RAD ---
Date of service: 05/17/2018 HISTORY: complete opacification of left lung COMPARISON: Portable chest 05/16/2018. FINDINGS: LUNGS: Complete opacification left hemithorax including mild volume loss and leftward mediastinal shift although the patient is slightly rotated toward the left as well. Hazy density at the mid to inferior right lung zone may indicate pleural effusion. No pneumothorax bilaterally. No definite pulmonary vascular congestion. Cardiac silhouette completely obscured. PLEURA: As above. CARDIOVASCULAR: As above. OSSEOUS STRUCTURES: No significant abnormalities. VISUALIZED UPPER ABDOMEN: Normal. OTHER FINDINGS: None. IMPRESSION: Complete left hemithorax opacification with stable moderate right pleural effusion and limited leftward mediastinal shift due to left pulmonary volume loss. Based on protein specialist view from prior chest CT 05/16/2018, right pleural effusion may have increased.
--- NOTE | 2018-05-17 08:50 | CP.PCM.PN ---
Subjective - Date & Time of Evaluation Date of Evaluation: 05/17/18 Time of Evaluation: 08:50 - Subjective Subjective: PGY3 ID Progress note for Dr. Todd Objective - Vital Signs/Intake and Output Vital Signs (last 24 hours): Temp Pulse Resp BP Pulse Ox 98.3 F 78 18 106/67 94 L 05/17/18 00:01 05/17/18 07:17 05/16/18 12:08 05/16/18 21:41 05/16/18 08:32 Intake and Output: 05/17/18 05/17/18 06:59 18:59 Intake Total 420 Output Total 1300 Balance -880 - Medications Medications: Current Medications Acetylcysteine (Acetylcysteine 20%) 5 ml IH QIDRESP [facility] Last Admin: 05/16/18 19:24 Dose: 5 ml Albuterol/Ipratropium (Duoneb 3 Mg/0.5 Mg (3 Ml) Ud) 3 ml IH [id number] [facility] Last Admin: 05/17/18 07:10 Dose: 3 ml Albuterol/Ipratropium (Duoneb 3 Mg/0.5 Mg (3 Ml) Ud) 3 ml IH Q2H PRN PRN Reason: Shortness of Breath Arformoterol Tartrate (Brovana) 15 mcg IH [id number] [facility] Last Admin: 05/17/18 07:10 Dose: 15 mcg Aspirin (Aspirin Chewable) 81 mg PO DAILY [facility] Last Admin: 05/16/18 11:07 Dose: 81 mg Atorvastatin Calcium (Lipitor) 20 mg PO HS [facility] Last Admin: 05/16/18 22:14 Dose: 20 mg Budesonide (Pulmicort Respules) 0.5 mg IH [id number] [facility] Last Admin: 05/17/18 07:10 Dose: 0.5 mg Carvedilol (Coreg) 12.5 mg PO BID [facility] Last Admin: 05/16/18 18:03 Dose: 12.5 mg Clonidine HCl (Catapres) 0.2 mg PO BID [facility] Last Admin: 05/16/18 18:02 Dose: 0.2 mg Dextrose (Dextrose 50% Inj) 0 ml IV STAT PRN; Protocol PRN Reason: Hypoglycemia Protocol Docusate Sodium (Colace) 100 mg PO TID [facility] Last Admin: 05/16/18 18:03 Dose: 100 mg Ferrous Sulfate (Feosol Liq) 300 mg PO TID [facility] Last Admin: 05/16/18 18:01 Dose: 300 mg Furosemide (Lasix) 40 mg PO DAILY [facility] Last Admin: 05/16/18 11:08 Dose: 40 mg Furosemide (Lasix) 40 mg IVP Q12 [facility] Last Admin: 05/16/18 21:41 Dose: 40 mg Glipizide (Glucotrol) 5 mg PO ACB [facility] Last Admin: 05/17/18 07:51 Dose: 5 mg Guaifenesin (Robitussin) 100 mg PO Q4H PRN PRN Reason: Cough Heparin Sodium (Porcine) (Heparin) 5,000 units SC Q8 [facility] PRN Reason: Protocol Last Admin: 05/17/18 05:25 Dose: 5,000 units Vancomycin HCl (Vancomycin 1gm) 1 gm in 250 mls @ 167 mls/hr IVPB DAILY [facility] PRN Reason: Protocol Last Admin: 05/16/18 18:06 Dose: 167 mls/hr Meropenem (Merrem Iv 1 Gm Premix) 50 mls @ 100 mls/hr IVPB Q8 [facility] PRN Reason: Protocol Stop: 05/25/18 19:01 Last Admin: 05/17/18 05:25 Dose: 100 mls/hr Milrinone Lactate/Dextrose (Primacor 20mg/100ml D5w) 100 mls @ 17.146 mls/hr IV .Q5H50M PRN; Protocol; 0.375 MCG/KG/MIN PRN Reason: TITRATE PER MD ORDER Insulin Human Regular (Humulin R) 0 units SC ACHS [facility] PRN Reason: Protocol Last Admin: 05/17/18 07:50 Dose: 1 unit Methylprednisolone (Solu-Medrol) 60 mg IVP DAILY [facility] Ondansetron HCl (Zofran Tab) 4 mg PO Q8H PRN PRN Reason: Nausea/Vomiting Pantoprazole Sodium (Protonix Ec Tab) 40 mg PO DAILY [facility] Last Admin: 05/16/18 11:07 Dose: 40 mg Polyethylene Glycol (Miralax) 17 gm PO DAILY [facility] Last Admin: 05/16/18 11:07 Dose: 17 gm Spironolactone (Aldactone) 25 mg PO DAILY [facility] Last Admin: 05/16/18 11:07 Dose: 25 mg - Labs Labs: 05/17/18 05:40 05/17/18 05:40 PT 21.4 SECONDS (9.4-12.5) H 05/09/18 17:00 INR 1.85 05/09/18 17:00 APTT 30.9 Seconds (25.1-36.5) 05/09/18 17:00
--- NOTE | 2018-05-17 09:41 | PN ---
Copied To: Randall Mcwilliams MD Attending MD: Randall Mcwilliams MD DATE: 05/17/2018 SUBJECTIVE: The patient is seen and examined at the bedside. He is alert, awake and oriented, comfortable. He maintained conversation thoughtful and without distress. PHYSICAL EXAMINATION: VITAL SIGNS: He is on 3 L/minute nasal cannula. His oxygen saturation is 92%, heart rate 86, blood pressure 129/79, respiratory rate 20. ENT: Head and neck atraumatic. LUNGS: Decrease BS on the left side. HEART: Regular rate and rhythm. S1, S2 normal. ABDOMEN: Soft, nontender and nondistended; however, obese. MUSCULOSKELETAL: Some chronic cellulitic changes, but no C/C/E. NEUROLOGIC: The patient moves all extremities spontaneously. SKIN: Moist. PSYCH: The patient is alert, awake and oriented x3. LABORATORY DATA: WBC is 7, hemoglobin 8.9, platelet count 224. Sodium 145, potassium 4.7, chloride 100, carbon dioxide 36, BUN 52, creatinine 1.1, glucose 197. The patient is HIV positive. CD4 count 51. MEDICATIONS: Mucomyst 4 times a day, DuoNeb p.r.n. every 2 hours and every 6 hours on a standing dose, Brovana, aspirin, Lipitor, Pulmicort, clonidine, Colace, Lasix 40 mg IV every 12 and 40 mg p.o. daily, Glucotrol, Robitussin p.r.n., heparin subcu for DVT prophylaxis, meropenem, Solu-Medrol 60 mg IV every 12, Zofran p.r.n., Protonix, MiraLax, spironolactone, vancomycin. Chest x-ray showed whiteout of the left lung and some haziness on the right side. CT chest performed yesterday showed lung atelectasis, small pleural effusion on the left side, large pleural effusion on right side with compression atelectasis. ASSESSMENT AND PLAN: This is a 52-year-old gentleman, who presented to ICU with hypercapnic respiratory failure requiring intermittent bilevel positive airway pressure, in the setting of CHF with biventricular failure. Chest imaging showed L. lobar atelectasis and R. large pleural effusion with compression atelectasis. Patient is on LABA/ICS, MARTIN q6h, systemic steroid taper, abx. At present time, the patient's blood gas is getting better, substantially improved. His mental status is getting better as well. I think, most importantly the patient needs aggressive chest physical therapy, incentive spirometry, postural drainage, out of bed to chair, nasotracheal suction. Getting the patient in sitting position would also improve his FRC. I will start patient on milrinone and will continue aggressive diuresis. We will continue to target euvolemia, euglycemia, normothermia and oxygen saturation more than 90%. We will continue with deep venous thrombosis, gastrointestinal prophylaxes. ccm time 40 min Randall Mcwilliams MD MTDD
--- NOTE | 2018-05-17 09:49 | PN ---
Copied To: Harris Todd MD Attending MD: Harris Todd MD DATE: 05/17/2018 SUBJECTIVE: The patient is seen earlier today in room 129, bed 4. He had an uneventful night. He had no fevers and he did have shortness of breath and no chest pain. No hemoptysis. OBJECTIVE: VITAL SIGNS: On exam, temperature is 98, blood pressure is 106/60, respiratory rate of 18, heart rate of 100. HEENT: Examination is unremarkable. NECK: Supple. LUNGS: Have decreased breath sounds. HEART: Normal S1, S2. ABDOMEN: Soft, nontender. No rebound or guarding. No masses. DATA: Laboratory examination reveals a white count of 7, hemoglobin of 8, platelets of 224. Chemistries reveal a BUN of 52, creatinine of 1.1 and procalcitonin is 0.05. Urinalysis is noted and CD-4 count is 727 and percentage is 51%. HIV is positive. PCR is negative. T cells are normal. HIV-2 is negative.. Repeat procalcitonin is pending. Repeat blood cultures, urine cultures, sputum cultures pending. Review of orders reveals the patient to be on vancomycin and meropenem. Chest x-ray from this morning, complete left hemithorax opacification, stable moderate right pleural effusion. ASSESSMENT AND PLAN: This is a 52-year-old male who was initially admitted with morbid obesity, body mass index of 43 and hypoxia, hypercapnic respiratory failure, acute decompensated congestive heart failure, chronic obstructive lung disease and with good T-cells, undetectable HIV, most likely a false positive Britney, now has sepsis with healthcare-associated pneumonia, day #2 of vancomycin and meropenem, pending pancultures and procalcitonin level and we will follow closely with you. Harris Todd MD
[2018-05-17] MEDS: Milrinone 20mg/100ml D5W 100 ML IV PRN ×3 (09:50→21:48)
[2018-05-17] MEDS: Vancomycin 1gm in NS 250ml 1 GM/250 ML BAG IVPB SCH (09:57)
[2018-05-17] MEDS: POLYETHYLENE GLYCOL 3350 17 GM/Dose PACKET PO SCH (09:59)
[2018-05-17] MEDS: Pantoprazole 40 mg EC Tab PO SCH (10:01)
[2018-05-17] MEDS: Ferrous Sulfate 300 mg/5 mL Liq UD PO SCH ×3 (10:07→17:31)
--- NOTE | 2018-05-17 11:40 | PN ---
Copied To: Beny Salgado MD Attending MD: Beny Salgado MD DATE: 05/17/2018 FOLLOWUP SUBJECTIVE: The patient's x-ray yesterday revealed complete opacification of the left lung and was transferred to ICU. A chest CT scan without contrast revealed complete left lung collapse with volume loss secondary to endobronchial lesion versus secretions in the distal left main bronchus. Large right and small left to moderate pleural effusions. Small amount of perihepatic and perisplenic ascites. Diffuse anasarca with extensive abdominal body wall edema. The patient denies any chest pain at this time. He is mildly short of breath, on nasal O2. PHYSICAL EXAMINATION: VITAL SIGNS: Blood pressure 122/67, heart rate 100, respirations 30, temperature 98.3. HEENT: Pale conjunctivae. CHEST: Absent breath sounds over the left lung and right base. HEART: S1 and S2 regular. ABDOMEN: Soft. EXTREMITIES: 1+ pitting edema. LABORATORY DATA: Hemoglobin and hematocrit 8.9 and 33.8, white count and platelet count are within normal limit. SMA-7 is within normal limits except glucose 205, carbon dioxide is 36 and BUN of 52. Blood cultures are negative after 5 days. ASSESSMENT: 1. Biventricular failure. 2. Complete opacification of the left lung with bilateral pleural effusion. Large right-sided and moderate left-sided pleural effusion. 3. Anemia. 4. Hypertension and diabetes mellitus. 5. Sleep apnea. RECOMMENDATIONS: Case was discussed with the medical team. Continue Aldactone 25 mg once a day, aspirin 81 mg once a day, clonidine 0.2 mg twice a day, Coreg 12.5 mg twice a day, heparin 5000 units subcutaneous every 8 hours, Lasix 40 mg intravenously twice a day, Lipitor 20 mg once a day, milrinone infusion, Solu-Medrol 60 mg intravenously daily, vancomycin 1 g intravenously daily. The patient is being followed by the associate technician for possible bronchoscopy. Beny Salgado MD
--- NOTE | 2018-05-17 11:57 | CP.PCM.PN ---
Objective - Vital Signs/Intake and Output Vital Signs (last 24 hours): Temp Pulse Resp BP Pulse Ox 98.3 F 100 H 18 122/67 94 L 05/17/18 00:01 05/17/18 10:01 05/16/18 12:08 05/17/18 10:01 05/16/18 08:32 Intake and Output: 05/17/18 05/17/18 06:59 18:59 Intake Total 420 Output Total 1300 Balance -880 - Medications Medications: Current Medications Acetylcysteine (Acetylcysteine 20%) 5 ml IH QIDRESP [facility] Last Admin: 05/16/18 19:24 Dose: 5 ml Albuterol/Ipratropium (Duoneb 3 Mg/0.5 Mg (3 Ml) Ud) 3 ml IH [id number] [facility] Last Admin: 05/17/18 07:10 Dose: 3 ml Albuterol/Ipratropium (Duoneb 3 Mg/0.5 Mg (3 Ml) Ud) 3 ml IH Q2H PRN PRN Reason: Shortness of Breath Arformoterol Tartrate (Brovana) 15 mcg IH [id number] [facility] Last Admin: 05/17/18 07:10 Dose: 15 mcg Aspirin (Aspirin Chewable) 81 mg PO DAILY [facility] Last Admin: 05/17/18 10:02 Dose: 81 mg Atorvastatin Calcium (Lipitor) 20 mg PO HS [facility] Last Admin: 05/16/18 22:14 Dose: 20 mg Budesonide (Pulmicort Respules) 0.5 mg IH [id number] [facility] Last Admin: 05/17/18 07:10 Dose: 0.5 mg Carvedilol (Coreg) 12.5 mg PO BID [facility] Last Admin: 05/17/18 10:00 Dose: 12.5 mg Clonidine HCl (Catapres) 0.2 mg PO BID [facility] Last Admin: 05/17/18 10:01 Dose: 0.2 mg Dextrose (Dextrose 50% Inj) 0 ml IV STAT PRN; Protocol PRN Reason: Hypoglycemia Protocol Docusate Sodium (Colace) 100 mg PO TID [facility] Last Admin: 05/17/18 10:00 Dose: 100 mg Ferrous Sulfate (Feosol Liq) 300 mg PO TID [facility] Last Admin: 05/17/18 10:07 Dose: 300 mg Furosemide (Lasix) 40 mg PO DAILY [facility] Last Admin: 05/17/18 10:01 Dose: 40 mg Furosemide (Lasix) 40 mg IVP Q12 [facility] Last Admin: 05/17/18 09:59 Dose: 40 mg Glipizide (Glucotrol) 5 mg PO ACB [facility] Last Admin: 05/17/18 07:51 Dose: 5 mg Guaifenesin (Robitussin) 100 mg PO Q4H PRN PRN Reason: Cough Heparin Sodium (Porcine) (Heparin) 5,000 units SC Q8 [facility] PRN Reason: Protocol Last Admin: 05/17/18 05:25 Dose: 5,000 units Vancomycin HCl (Vancomycin 1gm) 1 gm in 250 mls @ 167 mls/hr IVPB DAILY [facility] PRN Reason: Protocol Last Admin: 05/17/18 09:57 Dose: 167 mls/hr Meropenem (Merrem Iv 1 Gm Premix) 50 mls @ 100 mls/hr IVPB Q8 [facility] PRN Reason: Protocol Stop: 05/25/18 19:01 Last Admin: 05/17/18 05:25 Dose: 100 mls/hr Milrinone Lactate/Dextrose (Primacor 20mg/100ml D5w) 100 mls @ 17.146 mls/hr IV .Q5H50M PRN; Protocol; 0.375 MCG/KG/MIN PRN Reason: TITRATE PER MD ORDER Last Admin: 05/17/18 09:50 Dose: 0.375 mcg/kg/min, 17.146 mls/hr Insulin Human Regular (Humulin R) 0 units SC ACHS [facility] PRN Reason: Protocol Last Admin: 05/17/18 07:50 Dose: 1 unit Methylprednisolone (Solu-Medrol) 60 mg IVP DAILY [facility] Last Admin: 05/17/18 10:00 Dose: 60 mg Ondansetron HCl (Zofran Tab) 4 mg PO Q8H PRN PRN Reason: Nausea/Vomiting Pantoprazole Sodium (Protonix Ec Tab) 40 mg PO DAILY [facility] Last Admin: 05/17/18 10:01 Dose: 40 mg Polyethylene Glycol (Miralax) 17 gm PO DAILY [facility] Last Admin: 05/17/18 09:59 Dose: 17 gm Spironolactone (Aldactone) 25 mg PO DAILY [facility] Last Admin: 05/17/18 10:01 Dose: 25 mg - Labs Labs: 08/28/18 05:40 05/17/18 05:40 PT 21.4 SECONDS (9.4-12.5) H 05/09/18 17:00 INR 1.85 05/09/18 17:00 APTT 30.9 Seconds (25.1-36.5) 05/09/18 17:00
--- NOTE | 2018-05-17 12:01 | CP.CCUPN ---
<Monet Stewart - Last Filed: 05/17/18 11:57> CCU Subjective - Physician Review Events Since Last Encounter (Free Text): 05/17/18 11:57 Patient seen and examined at bedside. No acute events overnight. Patient states that his breathing has improved, with chest physiotherapy, and is coughing up some secretions. States that he has moderate appetite. Denies fevers, chills, nausea, vomiting, cp, abdominal pain, urinary symptoms. Critical Care Time Spent (in minutes): 60 CCU Objective - Vital Signs / Intake & Output Vital Signs (Last 4 hours): Vital Signs Pulse BP 05/17/18 10:01 100 H 122/67 05/17/18 10:00 100 H 122/67 05/17/18 09:59 122/67 05/17/18 09:50 93 H 122/77 Intake and Output (Last 8hrs): Intake & Output 05/16/18 05/17/18 05/17/18 22:59 06:59 14:59 Intake Total 220 200 Output Total 100 1200 Balance 120 -1000 Intake: IV 100 200 Right Hand 100 200 Oral 120 Output: Urine 100 1200 Urethral (Lugo) 100 1200 Stool 0 Urine/Stool Mix 0 Emesis 0 - Physical Exam Head: Positive for: Atraumatic, Normocephalic Pupils: Positive for: PERRL Extroacular Muscles: Positive for: EOMI Conjunctiva: Positive for: Normal Mouth: Positive for: Moist Mucous Membranes Neck: Positive for: Normal Range of Motion Respiratory/Chest: Positive for: Decreased Breath Sounds (on right side), Other (No lung sounds on left side.). Negative for: Clear to Auscultation, Respiratory Distress, Accessory Muscle Use, Retracting, Rhonchi, Tachypneic Cardiovascular: Positive for: Regular Rate and Rhythm, Normal S1, S2. Negative for: Murmurs Abdomen: Positive for: Normal Bowel Sounds, Other (morbidly obese male). Negative for: Tenderness, Peritoneal Signs, Rebound, Guarding Back: Positive for: Normal Inspection Upper Extremity: Positive for: NORMAL PULSES, Other (skin is dry). Negative for : Cyanosis Lower Extremity: Positive for: Other (chronic venous stasis changes). Negative for: Edema, CALF TENDERNESS Neurological: Positive for: GCS=15, CN II-XII Intact, Speech Normal Skin: Positive for: Dry. Negative for: Rashes Psychiatric: Positive for: Alert, Oriented x 3 - Medications Active Medications: Active Medications Generic Name Dose Route Start Last Admin Trade Name Freq PRN Reason Stop Dose Admin Acetylcysteine 5 ml 05/16/18 19:30 05/16/18 19:24 Acetylcysteine 20% IH 5 ml QIDRESP ED Administration Albuterol/Ipratropium 3 ml 05/10/18 02:00 05/17/18 07:10 Duoneb 3 Mg/0.5 Mg (3 Ml) Ud IH 3 ml [id number] ED Administration Albuterol/Ipratropium 3 ml 05/16/18 16:39 Duoneb 3 Mg/0.5 Mg (3 Ml) Ud IH Q2H PRN Shortness of Breath Arformoterol Tartrate 15 mcg 05/11/18 20:00 05/17/18 07:10 Brovana IH 15 mcg [id number] ED Administration Aspirin 81 mg 05/10/18 10:00 05/17/18 10:02 Aspirin Chewable PO 81 mg DAILY ED Administration Atorvastatin Calcium 20 mg 05/15/18 22:00 05/16/18 22:14 Lipitor PO 20 mg HS ED Administration Budesonide 0.5 mg 05/11/18 20:00 05/17/18 07:10 Pulmicort Respules IH 0.5 mg [id number] ED Administration Carvedilol 12.5 mg 05/12/18 11:15 05/17/18 10:00 Coreg PO 12.5 mg BID ED Administration Clonidine HCl 0.2 mg 05/13/18 10:45 05/17/18 10:01 Catapres PO 0.2 mg BID ED Administration Dextrose 0 ml 05/09/18 20:21 Dextrose 50% Inj IV STAT PRN Hypoglycemia Protocol Protocol Docusate Sodium 100 mg 05/12/18 18:00 05/17/18 10:00 Colace PO 100 mg TID ED Administration Ferrous Sulfate 300 mg 05/12/18 18:00 05/17/18 10:07 Feosol Liq PO 300 mg TID ED Administration Furosemide 40 mg 05/13/18 10:00 05/17/18 10:01 Lasix PO 40 mg DAILY ED Administration Furosemide 40 mg 05/16/18 12:15 05/17/18 09:59 Lasix IVP 40 mg Q12 ED Administration Glipizide 5 mg 05/12/18 17:45 05/17/18 07:51 Glucotrol PO 5 mg ACB ED Administration Guaifenesin 100 mg 05/16/18 17:28 Robitussin PO Q4H PRN Cough Heparin Sodium (Porcine) 5,000 units 05/14/18 14:00 05/17/18 05:25 Heparin SC 5,000 units Q8 ED Administration Protocol Vancomycin HCl 1 gm in 250 mls @ 167 mls/hr 05/16/18 17:30 05/17/18 09:57 Vancomycin 1gm IVPB 167 mls/hr DAILY ED Administration Protocol Meropenem 50 mls @ 100 mls/hr 05/16/18 19:00 05/17/18 05:25 Merrem Iv 1 Gm Premix IVPB 05/25/18 19:01 100 mls/hr Q8 ED Administration Protocol Milrinone Lactate/Dextrose 100 mls @ 17.146 mls/hr 05/17/18 08:47 05/17/18 09 :50 Primacor 20mg/100ml D5w IV 0.375 mcg/kg/min .[id number] PRN 17.146 mls/hr TITRATE PER MD ORDER Administration Protocol 0.375 MCG/KG/MIN Insulin Human Regular 0 units 05/11/18 11:30 05/17/18 07:50 Humulin R SC 1 unit ACHS ED Administration Protocol Methylprednisolone 60 mg 05/17/18 10:00 05/17/18 10:00 Solu-Medrol IVP 60 mg DAILY ED Administration Ondansetron HCl 4 mg 05/12/18 07:53 Zofran Tab PO Q8H PRN Nausea/Vomiting Pantoprazole Sodium 40 mg 05/12/18 10:00 05/17/18 10:01 Protonix Ec Tab PO 40 mg DAILY ED Administration Polyethylene Glycol 17 gm 05/12/18 17:45 05/17/18 09:59 Miralax PO 17 gm DAILY ED Administration Spironolactone 25 mg 05/12/18 11:15 05/17/18 10:01 Aldactone PO 25 mg DAILY ED Administration - Patient Studies Lab Studies: Lab Studies 05/17/18 05/17/18 05/17/18 Range/Units 07:40 07:36 05:40 WBC (4.5-11.0) 10^3/ul RBC (3.5-6.1) 10^6/uL Hgb (14.0-18.0) g/dL Hct (42.0-52.0) % MCV (80.0-105.0) fl MCH (25.0-35.0) pg MCHC (31.0-37.0) g/dl RDW (11.5-14.5) % Plt Count (120.0-450.0) 10^3/uL MPV (7.0-11.0) fl Gran % (50.0-68.0) % Lymph % (Auto) (22.0-35.0) % Smith % (Auto) (1.0-6.0) % Eos % (Auto) (1.5-5.0) % Baso % (Auto) (0.0-3.0) % Gran # (1.4-6.5) Lymph # (Auto) (1.2-3.4) Smith # (Auto) (0.1-0.6) Eos # (Auto) (0.0-0.7) Baso # (Auto) (0.0-2.0) K/mm3 pCO2 60 H (35-45) mm/Hg pO2 60.0 L (80-100) mm/Hg HCO3 33.1 H (21-28) mmol/L ABG pH 7.35 (7.35-7.45) ABG Total CO2 34.9 H (22-28) mmol.L ABG O2 Saturation 93.4 L (95-98) % ABG O2 Content 10.1 L (15-23) ML/dl ABG Base Excess 6.5 H (-2.0-3.0) mmol/L ABG Hemoglobin 7.9 L (11.7-17.4) g/dL ABG Carboxyhemoglobin 2.4 H (0.5-1.5) % POC ABG HHb (Measured) 6.4 H (0-5) % ABG Methemoglobin 0.4 (0.0-3.0) % ABG O2 Capacity 10.8 L (16-24) mL/dl ABG Potassium (3.6-5.2) mmol/L Hgb O2 Saturation 90.7 L (95.0-98.0) % Sodium 145 (132-148) mmol/L Chloride 100 (98-107) mmol/L Glucose (75-110) mg/dl Lactate (0.7-2.1) mmol/L FiO2 30.0 % Inspiratory BiPAP Potassium 4.7 (3.6-5.0) mmol/L Carbon Dioxide 36 H (21-33) mmol/L Anion Gap 14 (10-20) BUN 52 H (7-21) mg/dL Creatinine 1.1 (0.8-1.5) mg/dl Est GFR ( Amer) > 60 Est GFR (Non-Af Amer) > 60 POC Glucose (mg/dL) 197 H (65-110) mg/dL Random Glucose 205 H (70-110) mg/dL Calcium 8.9 (8.4-10.5) mg/dL Total Bilirubin 0.7 (0.2-1.3) mg/dL AST 43 (17-59) U/L ALT 27 (7-56) U/L Alkaline Phosphatase 274 H (38-126) U/L Total Protein 6.5 (5.8-8.3) g/dL Albumin 3.2 (3.0-4.8) g/dL Globulin 3.4 gm/dL Albumin/Globulin Ratio 0.9 L (1.1-1.8) Arterial Blood Potassium (3.6-5.2) mmol/L Urine Color (YELLOW) Urine Appearance (CLEAR) Urine pH (4.7-8.0) Ur Specific [place] (1.005-1.035) Urine Protein (<30 mg/dL) mg/dL Urine Glucose (UA) (NEGATIVE) mg/dL Urine Ketones (NEGATIVE) mg/dL Urine Blood (NEGATIVE) Urine Nitrate (NEGATIVE) Urine Bilirubin (NEGATIVE) Urine Urobilinogen (<1 E.U./dL) E.U./dL Ur Leukocyte Esterase (NEGATIVE) Rachel/uL Urine RBC (0-2) /hpf Urine WBC (0-6) /hpf Ur Epithelial Cells (0-5) /hpf Amorphous Sediment Urine Bacteria (NEG) Urine Other 05/17/18 05/17/18 05/17/18 Range/Units 05:40 05:30 01:32 WBC 7.0 (4.5-11.0) 10^3/ul RBC 4.50 (3.5-6.1) 10^6/uL Hgb 8.9 L (14.0-18.0) g/dL Hct 33.8 L (42.0-52.0) % MCV 75.1 L (80.0-105.0) fl MCH 19.8 L (25.0-35.0) pg MCHC 26.3 L (31.0-37.0) g/dl RDW 23.6 H (11.5-14.5) % Plt Count 224 (120.0-450.0) 10^3/uL MPV 8.9 (7.0-11.0) fl Gran % 66.2 (50.0-68.0) % Lymph % (Auto) 26.9 (22.0-35.0) % Smith % (Auto) 6.9 H (1.0-6.0) % Eos % (Auto) 0.0 L (1.5-5.0) % Baso % (Auto) 0.0 (0.0-3.0) % Gran # 4.64 (1.4-6.5) Lymph # (Auto) 1.9 (1.2-3.4) Smith # (Auto) 0.5 (0.1-0.6) Eos # (Auto) 0.0 (0.0-0.7) Baso # (Auto) 0.00 (0.0-2.0) K/mm3 pCO2 (35-45) mm/Hg pO2 (80-100) mm/Hg HCO3 (21-28) mmol/L ABG pH (7.35-7.45) ABG Total CO2 (22-28) mmol.L ABG O2 Saturation (95-98) % ABG O2 Content (15-23) ML/dl ABG Base Excess (-2.0-3.0) mmol/L ABG Hemoglobin (11.7-17.4) g/dL ABG Carboxyhemoglobin (0.5-1.5) % POC ABG HHb (Measured) (0-5) % ABG Methemoglobin (0.0-3.0) % ABG O2 Capacity (16-24) mL/dl ABG Potassium (3.6-5.2) mmol/L Hgb O2 Saturation (95.0-98.0) % Sodium (132-148) mmol/L Chloride (98-107) mmol/L Glucose (75-110) mg/dl Lactate (0.7-2.1) mmol/L FiO2 % Inspiratory BiPAP Potassium (3.6-5.0) mmol/L Carbon Dioxide (21-33) mmol/L Anion Gap (10-20) BUN (7-21) mg/dL Creatinine (0.8-1.5) mg/dl Est GFR ( Amer) Est GFR (Non-Af Amer) POC Glucose (mg/dL) 314 H (65-110) mg/dL Random Glucose (70-110) mg/dL Calcium (8.4-10.5) mg/dL Total Bilirubin (0.2-1.3) mg/dL AST (17-59) U/L ALT (7-56) U/L Alkaline Phosphatase (38-126) U/L Total Protein (5.8-8.3) g/dL Albumin (3.0-4.8) g/dL Globulin gm/dL Albumin/Globulin Ratio (1.1-1.8) Arterial Blood Potassium (3.6-5.2) mmol/L Urine Color Yellow (YELLOW) Urine Appearance Cloudy (CLEAR) Urine pH 6.0 (4.7-8.0) Ur Specific [place] 1.020 (1.005-1.035) Urine Protein Negative (<30 mg/dL) mg/dL Urine Glucose (UA) Negative (NEGATIVE) mg/dL Urine Ketones Negative (NEGATIVE) mg/dL Urine Blood Moderate H (NEGATIVE) Urine Nitrate Negative (NEGATIVE) Urine Bilirubin Negative (NEGATIVE) Urine Urobilinogen 0.2 (<1 E.U./dL) E.U./dL Ur Leukocyte Esterase Negative (NEGATIVE) Rachel/uL Urine RBC 15 - 20 (0-2) /hpf Urine WBC 1 - 3 (0-6) /hpf Ur Epithelial Cells 0 - 2 (0-5) /hpf Amorphous Sediment Few Urine Bacteria Many (NEG) Urine Other Uyeast 05/17/18 05/16/18 05/16/18 Range/Units 00:43 23:43 23:27 WBC (4.5-11.0) 10^3/ul RBC (3.5-6.1) 10^6/uL Hgb (14.0-18.0) g/dL Hct (42.0-52.0) % MCV (80.0-105.0) fl MCH (25.0-35.0) pg MCHC (31.0-37.0) g/dl RDW (11.5-14.5) % Plt Count (120.0-450.0) 10^3/uL MPV (7.0-11.0) fl Gran % (50.0-68.0) % Lymph % (Auto) (22.0-35.0) % Smith % (Auto) (1.0-6.0) % Eos % (Auto) (1.5-5.0) % Baso % (Auto) (0.0-3.0) % Gran # (1.4-6.5) Lymph # (Auto) (1.2-3.4) Smith # (Auto) (0.1-0.6) Eos # (Auto) (0.0-0.7) Baso # (Auto) (0.0-2.0) K/mm3 pCO2 68 H (35-45) mm/Hg pO2 63.0 L (80-100) mm/Hg HCO3 35.0 H (21-28) mmol/L ABG pH 7.32 L (7.35-7.45) ABG Total CO2 37.1 H (22-28) mmol.L ABG O2 Saturation 93.7 L (95-98) % ABG O2 Content (15-23) ML/dl ABG Base Excess 6.5 H (-2.0-3.0) mmol/L ABG Hemoglobin (11.7-17.4) g/dL ABG Carboxyhemoglobin (0.5-1.5) % POC ABG HHb (Measured) (0-5) % ABG Methemoglobin (0.0-3.0) % ABG O2 Capacity (16-24) mL/dl ABG Potassium 4.3 (3.6-5.2) mmol/L Hgb O2 Saturation (95.0-98.0) % Sodium 142.0 (132-148) mmol/L Chloride 105.0 (98-107) mmol/L Glucose 218 H (75-110) mg/dl Lactate 1.2 (0.7-2.1) mmol/L FiO2 30.0 % Inspiratory BiPAP 12 Potassium (3.6-5.0) mmol/L Carbon Dioxide (21-33) mmol/L Anion Gap (10-20) BUN (7-21) mg/dL Creatinine (0.8-1.5) mg/dl Est GFR ( Amer) Est GFR (Non-Af Amer) POC Glucose (mg/dL) 231 H 232 H (65-110) mg/dL Random Glucose (70-110) mg/dL Calcium (8.4-10.5) mg/dL Total Bilirubin (0.2-1.3) mg/dL AST (17-59) U/L ALT (7-56) U/L Alkaline Phosphatase (38-126) U/L Total Protein (5.8-8.3) g/dL Albumin (3.0-4.8) g/dL Globulin gm/dL Albumin/Globulin Ratio (1.1-1.8) Arterial Blood Potassium 4.3 (3.6-5.2) mmol/L Urine Color (YELLOW) Urine Appearance (CLEAR) Urine pH (4.7-8.0) Ur Specific [place] (1.005-1.035) Urine Protein (<30 mg/dL) mg/dL Urine Glucose (UA) (NEGATIVE) mg/dL Urine Ketones (NEGATIVE) mg/dL Urine Blood (NEGATIVE) Urine Nitrate (NEGATIVE) Urine Bilirubin (NEGATIVE) Urine Urobilinogen (<1 E.U./dL) E.U./dL Ur Leukocyte Esterase (NEGATIVE) Rachel/uL Urine RBC (0-2) /hpf Urine WBC (0-6) /hpf Ur Epithelial Cells (0-5) /hpf Amorphous Sediment Urine Bacteria (NEG) Urine Other 05/16/18 05/16/18 05/16/18 Range/Units 22:39 17:51 16:07 WBC (4.5-11.0) 10^3/ul RBC (3.5-6.1) 10^6/uL Hgb (14.0-18.0) g/dL Hct (42.0-52.0) % MCV (80.0-105.0) fl MCH (25.0-35.0) pg MCHC (31.0-37.0) g/dl RDW (11.5-14.5) % Plt Count (120.0-450.0) 10^3/uL MPV (7.0-11.0) fl Gran % (50.0-68.0) % Lymph % (Auto) (22.0-35.0) % Smith % (Auto) (1.0-6.0) % Eos % (Auto) (1.5-5.0) % Baso % (Auto) (0.0-3.0) % Gran # (1.4-6.5) Lymph # (Auto) (1.2-3.4) Smith # (Auto) (0.1-0.6) Eos # (Auto) (0.0-0.7) Baso # (Auto) (0.0-2.0) K/mm3 pCO2 (35-45) mm/Hg pO2 (80-100) mm/Hg HCO3 (21-28) mmol/L ABG pH (7.35-7.45) ABG Total CO2 (22-28) mmol.L ABG O2 Saturation (95-98) % ABG O2 Content (15-23) ML/dl ABG Base Excess (-2.0-3.0) mmol/L ABG Hemoglobin (11.7-17.4) g/dL ABG Carboxyhemoglobin (0.5-1.5) % POC ABG HHb (Measured) (0-5) % ABG Methemoglobin (0.0-3.0) % ABG O2 Capacity (16-24) mL/dl ABG Potassium (3.6-5.2) mmol/L Hgb O2 Saturation (95.0-98.0) % Sodium (132-148) mmol/L Chloride (98-107) mmol/L Glucose (75-110) mg/dl Lactate (0.7-2.1) mmol/L FiO2 % Inspiratory BiPAP Potassium (3.6-5.0) mmol/L Carbon Dioxide (21-33) mmol/L Anion Gap (10-20) BUN (7-21) mg/dL Creatinine (0.8-1.5) mg/dl Est GFR ( Amer) Est GFR (Non-Af Amer) POC Glucose (mg/dL) 233 H 211 H 203 H (65-110) mg/dL Random Glucose (70-110) mg/dL Calcium (8.4-10.5) mg/dL Total Bilirubin (0.2-1.3) mg/dL AST (17-59) U/L ALT (7-56) U/L Alkaline Phosphatase (38-126) U/L Total Protein (5.8-8.3) g/dL Albumin (3.0-4.8) g/dL Globulin gm/dL Albumin/Globulin Ratio (1.1-1.8) Arterial Blood Potassium (3.6-5.2) mmol/L Urine Color (YELLOW) Urine Appearance (CLEAR) Urine pH (4.7-8.0) Ur Specific [place] (1.005-1.035) Urine Protein (<30 mg/dL) mg/dL Urine Glucose (UA) (NEGATIVE) mg/dL Urine Ketones (NEGATIVE) mg/dL Urine Blood (NEGATIVE) Urine Nitrate (NEGATIVE) Urine Bilirubin (NEGATIVE) Urine Urobilinogen (<1 E.U./dL) E.U./dL Ur Leukocyte Esterase (NEGATIVE) Rachel/uL Urine RBC (0-2) /hpf Urine WBC (0-6) /hpf Ur Epithelial Cells (0-5) /hpf Amorphous Sediment Urine Bacteria (NEG) Urine Other 05/16/18 Range/Units 14:45 WBC (4.5-11.0) 10^3/ul RBC (3.5-6.1) 10^6/uL Hgb (14.0-18.0) g/dL Hct (42.0-52.0) % MCV (80.0-105.0) fl MCH (25.0-35.0) pg MCHC (31.0-37.0) g/dl RDW (11.5-14.5) % Plt Count (120.0-450.0) 10^3/uL MPV (7.0-11.0) fl Gran % (50.0-68.0) % Lymph % (Auto) (22.0-35.0) % Smith % (Auto) (1.0-6.0) % Eos % (Auto) (1.5-5.0) % Baso % (Auto) (0.0-3.0) % Gran # (1.4-6.5) Lymph # (Auto) (1.2-3.4) Smith # (Auto) (0.1-0.6) Eos # (Auto) (0.0-0.7) Baso # (Auto) (0.0-2.0) K/mm3 pCO2 81 H* (35-45) mm/Hg pO2 74.0 L (80-100) mm/Hg HCO3 35.5 H (21-28) mmol/L ABG pH 7.25 L (7.35-7.45) ABG Total CO2 38.0 H (22-28) mmol.L ABG O2 Saturation 95.0 (95-98) % ABG O2 Content 11.7 L (15-23) ML/dl ABG Base Excess 6.7 H (-2.0-3.0) mmol/L ABG Hemoglobin 8.9 L (11.7-17.4) g/dL ABG Carboxyhemoglobin 2.3 H (0.5-1.5) % POC ABG HHb (Measured) 4.9 (0-5) % ABG Methemoglobin 0.5 (0.0-3.0) % ABG O2 Capacity 12.3 L (16-24) mL/dl ABG Potassium (3.6-5.2) mmol/L Hgb O2 Saturation 92.3 L (95.0-98.0) % Sodium (132-148) mmol/L Chloride (98-107) mmol/L Glucose (75-110) mg/dl Lactate (0.7-2.1) mmol/L FiO2 45.0 % Inspiratory BiPAP Potassium (3.6-5.0) mmol/L Carbon Dioxide (21-33) mmol/L Anion Gap (10-20) BUN (7-21) mg/dL Creatinine (0.8-1.5) mg/dl Est GFR ( Amer) Est GFR (Non-Af Amer) POC Glucose (mg/dL) (65-110) mg/dL Random Glucose (70-110) mg/dL Calcium (8.4-10.5) mg/dL Total Bilirubin (0.2-1.3) mg/dL AST (17-59) U/L ALT (7-56) U/L Alkaline Phosphatase (38-126) U/L Total Protein (5.8-8.3) g/dL Albumin (3.0-4.8) g/dL Globulin gm/dL Albumin/Globulin Ratio (1.1-1.8) Arterial Blood Potassium (3.6-5.2) mmol/L Urine Color (YELLOW) Urine Appearance (CLEAR) Urine pH (4.7-8.0) Ur Specific [place] (1.005-1.035) Urine Protein (<30 mg/dL) mg/dL Urine Glucose (UA) (NEGATIVE) mg/dL Urine Ketones (NEGATIVE) mg/dL Urine Blood (NEGATIVE) Urine Nitrate (NEGATIVE) Urine Bilirubin (NEGATIVE) Urine Urobilinogen (<1 E.U./dL) E.U./dL Ur Leukocyte Esterase (NEGATIVE) Rachel/uL Urine RBC (0-2) /hpf Urine WBC (0-6) /hpf Ur Epithelial Cells (0-5) /hpf Amorphous Sediment Urine Bacteria (NEG) Urine Other Laboratory Results - last 24 hr 05/16/18 05/16/18 05/16/18 14:45 16:07 17:51 WBC RBC Hgb Hct MCV MCH MCHC RDW Plt Count MPV Gran % Lymph % (Auto) Smith % (Auto) Eos % (Auto) Baso % (Auto) Gran # Lymph # (Auto) Smith # (Auto) Eos # (Auto) Baso # (Auto) pCO2 81 H* pO2 74.0 L HCO3 35.5 H ABG pH 7.25 L ABG Total CO2 38.0 H ABG O2 Saturation 95.0 ABG O2 Content 11.7 L ABG Base Excess 6.7 H ABG Hemoglobin 8.9 L ABG Carboxyhemoglobin 2.3 H POC ABG HHb (Measured) 4.9 ABG Methemoglobin 0.5 ABG O2 Capacity 12.3 L ABG Potassium Hgb O2 Saturation 92.3 L Sodium Chloride Glucose Lactate FiO2 45.0 Inspiratory BiPAP Potassium Carbon Dioxide Anion Gap BUN Creatinine Est GFR ( Amer) Est GFR (Non-Af Amer) POC Glucose (mg/dL) 203 H 211 H Random Glucose Calcium Total Bilirubin AST ALT Alkaline Phosphatase Total Protein Albumin Globulin Albumin/Globulin Ratio Arterial Blood Potassium Urine Color Urine Appearance Urine pH Ur Specific [place] Urine Protein Urine Glucose (UA) Urine Ketones Urine Blood Urine Nitrate Urine Bilirubin Urine Urobilinogen Ur Leukocyte Esterase Urine RBC Urine WBC Ur Epithelial Cells Amorphous Sediment Urine Bacteria Urine Other 05/16/18 05/16/18 05/16/18 22:39 23:27 23:43 WBC RBC Hgb Hct MCV MCH MCHC RDW Plt Count MPV Gran % Lymph % (Auto) Smith % (Auto) Eos % (Auto) Baso % (Auto) Gran # Lymph # (Auto) Smith # (Auto) Eos # (Auto) Baso # (Auto) pCO2 68 H pO2 63.0 L HCO3 35.0 H ABG pH 7.32 L ABG Total CO2 37.1 H ABG O2 Saturation 93.7 L ABG O2 Content ABG Base Excess 6.5 H ABG Hemoglobin ABG Carboxyhemoglobin POC ABG HHb (Measured) ABG Methemoglobin ABG O2 Capacity ABG Potassium 4.3 Hgb O2 Saturation Sodium 142.0 Chloride 105.0 Glucose 218 H Lactate 1.2 FiO2 30.0 Inspiratory BiPAP 12 Potassium Carbon Dioxide Anion Gap BUN Creatinine Est GFR ( Amer) Est GFR (Non-Af Amer) POC Glucose (mg/dL) 233 H 232 H Random Glucose Calcium Total Bilirubin AST ALT Alkaline Phosphatase Total Protein Albumin Globulin Albumin/Globulin Ratio Arterial Blood Potassium 4.3 Urine Color Urine Appearance Urine pH Ur Specific [place] Urine Protein Urine Glucose (UA) Urine Ketones Urine Blood Urine Nitrate Urine Bilirubin Urine Urobilinogen Ur Leukocyte Esterase Urine RBC Urine WBC Ur Epithelial Cells Amorphous Sediment Urine Bacteria Urine Other 05/17/18 05/17/18 05/17/18 00:43 01:32 05:30 WBC RBC Hgb Hct MCV MCH MCHC RDW Plt Count MPV Gran % Lymph % (Auto) Smith % (Auto) Eos % (Auto) Baso % (Auto) Gran # Lymph # (Auto) Smith # (Auto) Eos # (Auto) Baso # (Auto) pCO2 pO2 HCO3 ABG pH ABG Total CO2 ABG O2 Saturation ABG O2 Content ABG Base Excess ABG Hemoglobin ABG Carboxyhemoglobin POC ABG HHb (Measured) ABG Methemoglobin ABG O2 Capacity ABG Potassium Hgb O2 Saturation Sodium Chloride Glucose Lactate FiO2 Inspiratory BiPAP Potassium Carbon Dioxide Anion Gap BUN Creatinine Est GFR ( Amer) Est GFR (Non-Af Amer) POC Glucose (mg/dL) 231 H 314 H Random Glucose Calcium Total Bilirubin AST ALT Alkaline Phosphatase Total Protein Albumin Globulin Albumin/Globulin Ratio Arterial Blood Potassium Urine Color Yellow Urine Appearance Cloudy Urine pH 6.0 Ur Specific [place] 1.020 Urine Protein Negative Urine Glucose (UA) Negative Urine Ketones Negative Urine Blood Moderate H Urine Nitrate Negative Urine Bilirubin Negative Urine Urobilinogen 0.2 Ur Leukocyte Esterase Negative Urine RBC 15 - 20 Urine WBC 1 - 3 Ur Epithelial Cells 0 - 2 Amorphous Sediment Few Urine Bacteria Many Urine Other Uyeast 05/17/18 05/17/18 05/17/18 05:40 05:40 07:36 WBC 7.0 RBC 4.50 Hgb 8.9 L Hct 33.8 L MCV 75.1 L MCH 19.8 L MCHC 26.3 L RDW 23.6 H Plt Count 224 MPV 8.9 Gran % 66.2 Lymph % (Auto) 26.9 Smith % (Auto) 6.9 H Eos % (Auto) 0.0 L Baso % (Auto) 0.0 Gran # 4.64 Lymph # (Auto) 1.9 Smith # (Auto) 0.5 Eos # (Auto) 0.0 Baso # (Auto) 0.00 pCO2 pO2 HCO3 ABG pH ABG Total CO2 ABG O2 Saturation ABG O2 Content ABG Base Excess ABG Hemoglobin ABG Carboxyhemoglobin POC ABG HHb (Measured) ABG Methemoglobin ABG O2 Capacity ABG Potassium Hgb O2 Saturation Sodium 145 Chloride 100 Glucose Lactate FiO2 Inspiratory BiPAP Potassium 4.7 Carbon Dioxide 36 H Anion Gap 14 BUN 52 H Creatinine 1.1 Est GFR ( Amer) > 60 Est GFR (Non-Af Amer) > 60 POC Glucose (mg/dL) 197 H Random Glucose 205 H Calcium 8.9 Total Bilirubin 0.7 AST 43 ALT 27 Alkaline Phosphatase 274 H Total Protein 6.5 Albumin 3.2 Globulin 3.4 Albumin/Globulin Ratio 0.9 L Arterial Blood Potassium Urine Color Urine Appearance Urine pH Ur Specific [place] Urine Protein Urine Glucose (UA) Urine Ketones Urine Blood Urine Nitrate Urine Bilirubin Urine Urobilinogen Ur Leukocyte Esterase Urine RBC Urine WBC Ur Epithelial Cells Amorphous Sediment Urine Bacteria Urine Other 05/17/18 07:40 WBC RBC Hgb Hct MCV MCH MCHC RDW Plt Count MPV Gran % Lymph % (Auto) Smith % (Auto) Eos % (Auto) Baso % (Auto) Gran # Lymph # (Auto) Smith # (Auto) Eos # (Auto) Baso # (Auto) pCO2 60 H pO2 60.0 L HCO3 33.1 H ABG pH 7.35 ABG Total CO2 34.9 H ABG O2 Saturation 93.4 L ABG O2 Content 10.1 L ABG Base Excess 6.5 H ABG Hemoglobin 7.9 L ABG Carboxyhemoglobin 2.4 H POC ABG HHb (Measured) 6.4 H ABG Methemoglobin 0.4 ABG O2 Capacity 10.8 L ABG Potassium Hgb O2 Saturation 90.7 L Sodium Chloride Glucose Lactate FiO2 30.0 Inspiratory BiPAP Potassium Carbon Dioxide Anion Gap BUN Creatinine Est GFR ( Amer) Est GFR (Non-Af Amer) POC Glucose (mg/dL) Random Glucose Calcium Total Bilirubin AST ALT Alkaline Phosphatase Total Protein Albumin Globulin Albumin/Globulin Ratio Arterial Blood Potassium Urine Color Urine Appearance Urine pH Ur Specific [place] Urine Protein Urine Glucose (UA) Urine Ketones Urine Blood Urine Nitrate Urine Bilirubin Urine Urobilinogen Ur Leukocyte Esterase Urine RBC Urine WBC Ur Epithelial Cells Amorphous Sediment Urine Bacteria Urine Other Fingerstick Blood Sugar Results: 147 Review of Systems - Review of Systems All systems: reviewed and no additional remarkable complaints except Review of Systems: as per HPI Critical Care Progress Note - Nutrition Nutrition: Nutrition Category Date Time Status Dysphagia/Modified Consistency Diet [DIET] Diets 05/10/18 Lunch Ordered Assessment/Plan - Assessment and Plan (Free Text) Assessment: 52 year old male with PMH COPD on 2L home O2, DM2, CHF with EF 39.1% (04/2018), CAD with stents, HTN, HLD, gout, admitted to ICU for hypercapneic respiratory failure 2/2 likely COPD exacerbation. On imaging, patient found to be have complete opacification of left lung, bilateral pleural effusion R>L, and perihilar right sided infiltrate. Patient on bipap overnight, with improved hypercapnea this AM. Patient will continue with aggressive chest physiotherapy, postural drainage, mucomyst, bronchodilators treatment, steroids. Will add hypertonic saline inhalation: Neuro : AAOx3 today, no lethargy noted. Cont to monitor. CV: -maintain MAP>65 -ECHO 04/2018: EF 39.1%. mild concentric LVH, systolic function moderately impaired, septal hypokinesis, mild MR, moderate TR, mild pulmonary HTN, aortic root mildly enlarged -Cardio on consult, Dr. Syed -BNP elevated this admission. CHF exacerbation. C/w strict I&Os, daily weights. -started on Milrinone drip -lasix 40 IV q12 -Cont to monitor. Pulm: On NC. will keep bipap nightly. -duonebs ed and prn, solumedrol 60mg IV daily, short and long acting bronchodilators, ICS -CXR this AM shows complete left hemithorax opacification. -Aggressive chest physiotherapy, postural drainage, mucomyst, hypertonic saline inhalation -On HCAP coverage Merrem and Vanco -closely monitor GI: Continue with Protonix. Renal : Replace lytes, maintain euvolemia. Continue to monitor. ID: -CXR shows new right perihilar infiltrate. -afebrile, no leukocytosis -C/w HCAP coverage - Vanco, Merrem -f/u procal -ID on board. f/u recs. Endo: Continue with ISS low. Maintain euglycemia. Heme: Hgb 8.9 (at baseline) - iron deficiency anemia. On feosol. Stable, Cont to monitor. DVT ppx - SQ heparin GI ppx - Protonix Case seen and discussed with attending, Dr Mcwilliams. <Randall Mcwilliams - Last Filed: 05/17/18 16:18> CCU Objective - Vital Signs / Intake & Output Intake and Output (Last 8hrs): Intake & Output 05/17/18 05/17/18 05/17/18 06:59 14:59 22:59 Intake Total 200 100 Output Total 1200 Balance -1000 100 Intake: IV 200 100 Right Hand 200 Output: Urine 1200 Urethral ([place]) 1200 Urine/Stool Mix 0 - Medications Active Medications: Active Medications Generic Name Dose Route Start Last Admin Trade Name Freq PRN Reason Stop Dose Admin Albuterol/Ipratropium 3 ml 05/16/18 16:39 Duoneb 3 Mg/0.5 Mg (3 Ml) Ud IH Q2H PRN Shortness of Breath Arformoterol Tartrate 15 mcg 05/11/18 20:00 05/17/18 07:10 Brovana IH 15 mcg [id number] ED Administration Aspirin 81 mg 05/10/18 10:00 05/17/18 10:02 Aspirin Chewable PO 81 mg DAILY ED Administration Atorvastatin Calcium 20 mg 05/15/18 22:00 05/16/18 22:14 Lipitor PO 20 mg HS ED Administration Budesonide 0.5 mg 05/11/18 20:00 05/17/18 07:10 Pulmicort Respules IH 0.5 mg [id number] ED Administration Carvedilol 12.5 mg 05/12/18 11:15 05/17/18 10:00 Coreg PO 12.5 mg BID ED Administration Clonidine HCl 0.2 mg 05/13/18 10:45 05/17/18 10:01 Catapres PO 0.2 mg BID ED Administration Dextrose 0 ml 05/09/18 20:21 Dextrose 50% Inj IV STAT PRN Hypoglycemia Protocol Protocol Docusate Sodium 100 mg 05/12/18 18:00 05/17/18 14:24 Colace PO 100 mg TID ED Administration Ferrous Sulfate 300 mg 05/12/18 18:00 05/17/18 14:24 Feosol Liq PO 300 mg TID ED Administration Furosemide 40 mg 05/13/18 10:00 05/17/18 10:01 Lasix PO 40 mg DAILY ED Administration Furosemide 40 mg 05/16/18 12:15 05/17/18 09:59 Lasix IVP 40 mg Q12 ED Administration Glipizide 5 mg 05/12/18 17:45 05/17/18 07:51 Glucotrol PO 5 mg ACB ED Administration Guaifenesin 100 mg 05/16/18 17:28 Robitussin PO Q4H PRN Cough Heparin Sodium (Porcine) 5,000 units 05/14/18 14:00 05/17/18 14:34 Heparin SC 5,000 units Q8 ED Administration Protocol Vancomycin HCl 1 gm in 250 mls @ 167 mls/hr 05/16/18 17:30 05/17/18 09:57 Vancomycin 1gm IVPB 167 mls/hr DAILY ED Administration Protocol Meropenem 50 mls @ 100 mls/hr 05/16/18 19:00 05/17/18 14:18 Merrem Iv 1 Gm Premix IVPB 05/25/18 19:01 100 mls/hr Q8 ED Administration Protocol Milrinone Lactate/Dextrose 100 mls @ 17.146 mls/hr 05/17/18 08:47 05/17/18 15 :35 Primacor 20mg/100ml D5w IV 0.375 mcg/kg/min .[id number] PRN 17.146 mls/hr TITRATE PER MD ORDER Administration Protocol 0.375 MCG/KG/MIN Insulin Human Regular 0 units 05/11/18 11:30 05/17/18 12:12 Humulin R SC 3 unit ACHS ED Administration Protocol Ipratropium [place] 0.5 mg 05/17/18 20:00 Atrovent IH [id number] ED Methylprednisolone 60 mg 05/17/18 10:00 05/17/18 10:00 Solu-Medrol IVP 60 mg DAILY ED Administration Ondansetron HCl 4 mg 05/12/18 07:53 Zofran Tab PO Q8H PRN Nausea/Vomiting Pantoprazole Sodium 40 mg 05/12/18 10:00 05/17/18 10:01 Protonix Ec Tab PO 40 mg DAILY ED Administration Polyethylene Glycol 17 gm 05/12/18 17:45 05/17/18 09:59 Miralax PO 17 gm DAILY ED Administration Spironolactone 25 mg 05/12/18 11:15 05/17/18 10:01 Aldactone PO 25 mg DAILY ED Administration - Patient Studies Lab Studies: Microbiology Studies 05/17/18 09:15 Gram Stain - Final Sputum Lab Studies 05/17/18 05/17/18 05/17/18 Range/Units 07:40 07:36 05:40 WBC (4.5-11.0) 10^3/ul RBC (3.5-6.1) 10^6/uL Hgb (14.0-18.0) g/dL Hct (42.0-52.0) % MCV (80.0-105.0) fl MCH (25.0-35.0) pg MCHC (31.0-37.0) g/dl RDW (11.5-14.5) % Plt Count (120.0-450.0) 10^3/uL MPV (7.0-11.0) fl Gran % (50.0-68.0) % Lymph % (Auto) (22.0-35.0) % Smith % (Auto) (1.0-6.0) % Eos % (Auto) (1.5-5.0) % Baso % (Auto) (0.0-3.0) % Gran # (1.4-6.5) Lymph # (Auto) (1.2-3.4) Smith # (Auto) (0.1-0.6) Eos # (Auto) (0.0-0.7) Baso # (Auto) (0.0-2.0) K/mm3 pCO2 60 H (35-45) mm/Hg pO2 60.0 L (80-100) mm/Hg HCO3 33.1 H (21-28) mmol/L ABG pH 7.35 (7.35-7.45) ABG Total CO2 34.9 H (22-28) mmol.L ABG O2 Saturation 93.4 L (95-98) % ABG O2 Content 10.1 L (15-23) ML/dl ABG Base Excess 6.5 H (-2.0-3.0) mmol/L ABG Hemoglobin 7.9 L (11.7-17.4) g/dL ABG Carboxyhemoglobin 2.4 H (0.5-1.5) % POC ABG HHb (Measured) 6.4 H (0-5) % ABG Methemoglobin 0.4 (0.0-3.0) % ABG O2 Capacity 10.8 L (16-24) mL/dl ABG Potassium (3.6-5.2) mmol/L Hgb O2 Saturation 90.7 L (95.0-98.0) % Sodium 145 (132-148) mmol/L Chloride 100 (98-107) mmol/L Glucose (75-110) mg/dl Lactate (0.7-2.1) mmol/L FiO2 30.0 % Inspiratory BiPAP Potassium 4.7 (3.6-5.0) mmol/L Carbon Dioxide 36 H (21-33) mmol/L Anion Gap 14 (10-20) BUN 52 H (7-21) mg/dL Creatinine 1.1 (0.8-1.5) mg/dl Est GFR ( Amer) > 60 Est GFR (Non-Af Amer) > 60 POC Glucose (mg/dL) 197 H (65-110) mg/dL Random Glucose 205 H (70-110) mg/dL Calcium 8.9 (8.4-10.5) mg/dL Total Bilirubin 0.7 (0.2-1.3) mg/dL AST 43 (17-59) U/L ALT 27 (7-56) U/L Alkaline Phosphatase 274 H (38-126) U/L Total Protein 6.5 (5.8-8.3) g/dL Albumin 3.2 (3.0-4.8) g/dL Globulin 3.4 gm/dL Albumin/Globulin Ratio 0.9 L (1.1-1.8) Procalcitonin (0.19-0.49) NG/ML Arterial Blood Potassium (3.6-5.2) mmol/L Urine Color (YELLOW) Urine Appearance (CLEAR) Urine pH (4.7-8.0) Ur Specific [place] (1.005-1.035) Urine Protein (<30 mg/dL) mg/dL Urine Glucose (UA) (NEGATIVE) mg/dL Urine Ketones (NEGATIVE) mg/dL Urine Blood (NEGATIVE) Urine Nitrate (NEGATIVE) Urine Bilirubin (NEGATIVE) Urine Urobilinogen (<1 E.U./dL) E.U./dL Ur Leukocyte Esterase (NEGATIVE) Rachel/uL Urine RBC (0-2) /hpf Urine WBC (0-6) /hpf Ur Epithelial Cells (0-5) /hpf Amorphous Sediment Urine Bacteria (NEG) Urine Other 05/17/18 05/17/18 05/17/18 Range/Units 05:40 05:30 01:32 WBC 7.0 (4.5-11.0) 10^3/ul RBC 4.50 (3.5-6.1) 10^6/uL Hgb 8.9 L (14.0-18.0) g/dL Hct 33.8 L (42.0-52.0) % MCV 75.1 L (80.0-105.0) fl MCH 19.8 L (25.0-35.0) pg MCHC 26.3 L (31.0-37.0) g/dl RDW 23.6 H (11.5-14.5) % Plt Count 224 (120.0-450.0) 10^3/uL MPV 8.9 (7.0-11.0) fl Gran % 66.2 (50.0-68.0) % Lymph % (Auto) 26.9 (22.0-35.0) % Smith % (Auto) 6.9 H (1.0-6.0) % Eos % (Auto) 0.0 L (1.5-5.0) % Baso % (Auto) 0.0 (0.0-3.0) % Gran # 4.64 (1.4-6.5) Lymph # (Auto) 1.9 (1.2-3.4) Smith # (Auto) 0.5 (0.1-0.6) Eos # (Auto) 0.0 (0.0-0.7) Baso # (Auto) 0.00 (0.0-2.0) K/mm3 pCO2 (35-45) mm/Hg pO2 (80-100) mm/Hg HCO3 (21-28) mmol/L ABG pH (7.35-7.45) ABG Total CO2 (22-28) mmol.L ABG O2 Saturation (95-98) % ABG O2 Content (15-23) ML/dl ABG Base Excess (-2.0-3.0) mmol/L ABG Hemoglobin (11.7-17.4) g/dL ABG Carboxyhemoglobin (0.5-1.5) % POC ABG HHb (Measured) (0-5) % ABG Methemoglobin (0.0-3.0) % ABG O2 Capacity (16-24) mL/dl ABG Potassium (3.6-5.2) mmol/L Hgb O2 Saturation (95.0-98.0) % Sodium (132-148) mmol/L Chloride (98-107) mmol/L Glucose (75-110) mg/dl Lactate (0.7-2.1) mmol/L FiO2 % Inspiratory BiPAP Potassium (3.6-5.0) mmol/L Carbon Dioxide (21-33) mmol/L Anion Gap (10-20) BUN (7-21) mg/dL Creatinine (0.8-1.5) mg/dl Est GFR ( Amer) Est GFR (Non-Af Amer) POC Glucose (mg/dL) 314 H (65-110) mg/dL Random Glucose (70-110) mg/dL Calcium (8.4-10.5) mg/dL Total Bilirubin (0.2-1.3) mg/dL AST (17-59) U/L ALT (7-56) U/L Alkaline Phosphatase (38-126) U/L Total Protein (5.8-8.3) g/dL Albumin (3.0-4.8) g/dL Globulin gm/dL Albumin/Globulin Ratio (1.1-1.8) Procalcitonin (0.19-0.49) NG/ML Arterial Blood Potassium (3.6-5.2) mmol/L Urine Color Yellow (YELLOW) Urine Appearance Cloudy (CLEAR) Urine pH 6.0 (4.7-8.0) Ur Specific [place] 1.020 (1.005-1.035) Urine Protein Negative (<30 mg/dL) mg/dL Urine Glucose (UA) Negative (NEGATIVE) mg/dL Urine Ketones Negative (NEGATIVE) mg/dL Urine Blood Moderate H (NEGATIVE) Urine Nitrate Negative (NEGATIVE) Urine Bilirubin Negative (NEGATIVE) Urine Urobilinogen 0.2 (<1 E.U./dL) E.U./dL Ur Leukocyte Esterase Negative (NEGATIVE) Rachel/uL Urine RBC 15 - 20 (0-2) /hpf Urine WBC 1 - 3 (0-6) /hpf Ur Epithelial Cells 0 - 2 (0-5) /hpf Amorphous Sediment Few Urine Bacteria Many (NEG) Urine Other Uyeast 05/17/18 05/16/18 05/16/18 Range/Units 00:43 23:43 23:27 WBC (4.5-11.0) 10^3/ul RBC (3.5-6.1) 10^6/uL Hgb (14.0-18.0) g/dL Hct (42.0-52.0) % MCV (80.0-105.0) fl MCH (25.0-35.0) pg MCHC (31.0-37.0) g/dl RDW (11.5-14.5) % Plt Count (120.0-450.0) 10^3/uL MPV (7.0-11.0) fl Gran % (50.0-68.0) % Lymph % (Auto) (22.0-35.0) % Smith % (Auto) (1.0-6.0) % Eos % (Auto) (1.5-5.0) % Baso % (Auto) (0.0-3.0) % Gran # (1.4-6.5) Lymph # (Auto) (1.2-3.4) Smith # (Auto) (0.1-0.6) Eos # (Auto) (0.0-0.7) Baso # (Auto) (0.0-2.0) K/mm3 pCO2 68 H (35-45) mm/Hg pO2 63.0 L (80-100) mm/Hg HCO3 35.0 H (21-28) mmol/L ABG pH 7.32 L (7.35-7.45) ABG Total CO2 37.1 H (22-28) mmol.L ABG O2 Saturation 93.7 L (95-98) % ABG O2 Content (15-23) ML/dl ABG Base Excess 6.5 H (-2.0-3.0) mmol/L ABG Hemoglobin (11.7-17.4) g/dL ABG Carboxyhemoglobin (0.5-1.5) % POC ABG HHb (Measured) (0-5) % ABG Methemoglobin (0.0-3.0) % ABG O2 Capacity (16-24) mL/dl ABG Potassium 4.3 (3.6-5.2) mmol/L Hgb O2 Saturation (95.0-98.0) % Sodium 142.0 (132-148) mmol/L Chloride 105.0 (98-107) mmol/L Glucose 218 H (75-110) mg/dl Lactate 1.2 (0.7-2.1) mmol/L FiO2 30.0 % Inspiratory BiPAP 12 Potassium (3.6-5.0) mmol/L Carbon Dioxide (21-33) mmol/L Anion Gap (10-20) BUN (7-21) mg/dL Creatinine (0.8-1.5) mg/dl Est GFR ( Amer) Est GFR (Non-Af Amer) POC Glucose (mg/dL) 231 H 232 H (65-110) mg/dL Random Glucose (70-110) mg/dL Calcium (8.4-10.5) mg/dL Total Bilirubin (0.2-1.3) mg/dL AST (17-59) U/L ALT (7-56) U/L Alkaline Phosphatase (38-126) U/L Total Protein (5.8-8.3) g/dL Albumin (3.0-4.8) g/dL Globulin gm/dL Albumin/Globulin Ratio (1.1-1.8) Procalcitonin (0.19-0.49) NG/ML Arterial Blood Potassium 4.3 (3.6-5.2) mmol/L Urine Color (YELLOW) Urine Appearance (CLEAR) Urine pH (4.7-8.0) Ur Specific [place] (1.005-1.035) Urine Protein (<30 mg/dL) mg/dL Urine Glucose (UA) (NEGATIVE) mg/dL Urine Ketones (NEGATIVE) mg/dL Urine Blood (NEGATIVE) Urine Nitrate (NEGATIVE) Urine Bilirubin (NEGATIVE) Urine Urobilinogen (<1 E.U./dL) E.U./dL Ur Leukocyte Esterase (NEGATIVE) Rachel/uL Urine RBC (0-2) /hpf Urine WBC (0-6) /hpf Ur Epithelial Cells (0-5) /hpf Amorphous Sediment Urine Bacteria (NEG) Urine Other 05/16/18 05/16/18 05/16/18 Range/Units 22:40 22:39 17:51 WBC (4.5-11.0) 10^3/ul RBC (3.5-6.1) 10^6/uL Hgb (14.0-18.0) g/dL Hct (42.0-52.0) % MCV (80.0-105.0) fl MCH (25.0-35.0) pg MCHC (31.0-37.0) g/dl RDW (11.5-14.5) % Plt Count (120.0-450.0) 10^3/uL MPV (7.0-11.0) fl Gran % (50.0-68.0) % Lymph % (Auto) (22.0-35.0) % Smith % (Auto) (1.0-6.0) % Eos % (Auto) (1.5-5.0) % Baso % (Auto) (0.0-3.0) % Gran # (1.4-6.5) Lymph # (Auto) (1.2-3.4) Smith # (Auto) (0.1-0.6) Eos # (Auto) (0.0-0.7) Baso # (Auto) (0.0-2.0) K/mm3 pCO2 (35-45) mm/Hg pO2 (80-100) mm/Hg HCO3 (21-28) mmol/L ABG pH (7.35-7.45) ABG Total CO2 (22-28) mmol.L ABG O2 Saturation (95-98) % ABG O2 Content (15-23) ML/dl ABG Base Excess (-2.0-3.0) mmol/L ABG Hemoglobin (11.7-17.4) g/dL ABG Carboxyhemoglobin (0.5-1.5) % POC ABG HHb (Measured) (0-5) % ABG Methemoglobin (0.0-3.0) % ABG O2 Capacity (16-24) mL/dl ABG Potassium (3.6-5.2) mmol/L Hgb O2 Saturation (95.0-98.0) % Sodium (132-148) mmol/L Chloride (98-107) mmol/L Glucose (75-110) mg/dl Lactate (0.7-2.1) mmol/L FiO2 % Inspiratory BiPAP Potassium (3.6-5.0) mmol/L Carbon Dioxide (21-33) mmol/L Anion Gap (10-20) BUN (7-21) mg/dL Creatinine (0.8-1.5) mg/dl Est GFR ( Amer) Est GFR (Non-Af Amer) POC Glucose (mg/dL) 233 H 211 H (65-110) mg/dL Random Glucose (70-110) mg/dL Calcium (8.4-10.5) mg/dL Total Bilirubin (0.2-1.3) mg/dL AST (17-59) U/L ALT (7-56) U/L Alkaline Phosphatase (38-126) U/L Total Protein (5.8-8.3) g/dL Albumin (3.0-4.8) g/dL Globulin gm/dL Albumin/Globulin Ratio (1.1-1.8) Procalcitonin 0.09 L (0.19-0.49) NG/ML Arterial Blood Potassium (3.6-5.2) mmol/L Urine Color (YELLOW) Urine Appearance (CLEAR) Urine pH (4.7-8.0) Ur Specific [place] (1.005-1.035) Urine Protein (<30 mg/dL) mg/dL Urine Glucose (UA) (NEGATIVE) mg/dL Urine Ketones (NEGATIVE) mg/dL Urine Blood (NEGATIVE) Urine Nitrate (NEGATIVE) Urine Bilirubin (NEGATIVE) Urine Urobilinogen (<1 E.U./dL) E.U./dL Ur Leukocyte Esterase (NEGATIVE) Rachel/uL Urine RBC (0-2) /hpf Urine WBC (0-6) /hpf Ur Epithelial Cells (0-5) /hpf Amorphous Sediment Urine Bacteria (NEG) Urine Other 05/16/18 Range/Units 16:07 WBC (4.5-11.0) 10^3/ul RBC (3.5-6.1) 10^6/uL Hgb (14.0-18.0) g/dL Hct (42.0-52.0) % MCV (80.0-105.0) fl MCH (25.0-35.0) pg MCHC (31.0-37.0) g/dl RDW (11.5-14.5) % Plt Count (120.0-450.0) 10^3/uL MPV (7.0-11.0) fl Gran % (50.0-68.0) % Lymph % (Auto) (22.0-35.0) % Smith % (Auto) (1.0-6.0) % Eos % (Auto) (1.5-5.0) % Baso % (Auto) (0.0-3.0) % Gran # (1.4-6.5) Lymph # (Auto) (1.2-3.4) Smith # (Auto) (0.1-0.6) Eos # (Auto) (0.0-0.7) Baso # (Auto) (0.0-2.0) K/mm3 pCO2 (35-45) mm/Hg pO2 (80-100) mm/Hg HCO3 (21-28) mmol/L ABG pH (7.35-7.45) ABG Total CO2 (22-28) mmol.L ABG O2 Saturation (95-98) % ABG O2 Content (15-23) ML/dl ABG Base Excess (-2.0-3.0) mmol/L ABG Hemoglobin (11.7-17.4) g/dL ABG Carboxyhemoglobin (0.5-1.5) % POC ABG HHb (Measured) (0-5) % ABG Methemoglobin (0.0-3.0) % ABG O2 Capacity (16-24) mL/dl ABG Potassium (3.6-5.2) mmol/L Hgb O2 Saturation (95.0-98.0) % Sodium (132-148) mmol/L Chloride (98-107) mmol/L Glucose (75-110) mg/dl Lactate (0.7-2.1) mmol/L FiO2 % Inspiratory BiPAP Potassium (3.6-5.0) mmol/L Carbon Dioxide (21-33) mmol/L Anion Gap (10-20) BUN (7-21) mg/dL Creatinine (0.8-1.5) mg/dl Est GFR ( Amer) Est GFR (Non-Af Amer) POC Glucose (mg/dL) 203 H (65-110) mg/dL Random Glucose (70-110) mg/dL Calcium (8.4-10.5) mg/dL Total Bilirubin (0.2-1.3) mg/dL AST (17-59) U/L ALT (7-56) U/L Alkaline Phosphatase (38-126) U/L Total Protein (5.8-8.3) g/dL Albumin (3.0-4.8) g/dL Globulin gm/dL Albumin/Globulin Ratio (1.1-1.8) Procalcitonin (0.19-0.49) NG/ML Arterial Blood Potassium (3.6-5.2) mmol/L Urine Color (YELLOW) Urine Appearance (CLEAR) Urine pH (4.7-8.0) Ur Specific [place] (1.005-1.035) Urine Protein (<30 mg/dL) mg/dL Urine Glucose (UA) (NEGATIVE) mg/dL Urine Ketones (NEGATIVE) mg/dL Urine Blood (NEGATIVE) Urine Nitrate (NEGATIVE) Urine Bilirubin (NEGATIVE) Urine Urobilinogen (<1 E.U./dL) E.U./dL Ur Leukocyte Esterase (NEGATIVE) Rachel/uL Urine RBC (0-2) /hpf Urine WBC (0-6) /hpf Ur Epithelial Cells (0-5) /hpf Amorphous Sediment Urine Bacteria (NEG) Urine Other Laboratory Results - last 24 hr 05/16/18 05/16/18 05/16/18 16:07 17:51 22:39 WBC RBC Hgb Hct MCV MCH MCHC RDW Plt Count MPV Gran % Lymph % (Auto) Smith % (Auto) Eos % (Auto) Baso % (Auto) Gran # Lymph # (Auto) Smith # (Auto) Eos # (Auto) Baso # (Auto) pCO2 pO2 HCO3 ABG pH ABG Total CO2 ABG O2 Saturation ABG O2 Content ABG Base Excess ABG Hemoglobin ABG Carboxyhemoglobin POC ABG HHb (Measured) ABG Methemoglobin ABG O2 Capacity ABG Potassium Hgb O2 Saturation Sodium Chloride Glucose Lactate FiO2 Inspiratory BiPAP Potassium Carbon Dioxide Anion Gap BUN Creatinine Est GFR ( Amer) Est GFR (Non-Af Amer) POC Glucose (mg/dL) 203 H 211 H 233 H Random Glucose Calcium Total Bilirubin AST ALT Alkaline Phosphatase Total Protein Albumin Globulin Albumin/Globulin Ratio Procalcitonin Arterial Blood Potassium Urine Color Urine Appearance Urine pH Ur Specific [place] Urine Protein Urine Glucose (UA) Urine Ketones Urine Blood Urine Nitrate Urine Bilirubin Urine Urobilinogen Ur Leukocyte Esterase Urine RBC Urine WBC Ur Epithelial Cells Amorphous Sediment Urine Bacteria Urine Other 05/16/18 05/16/18 05/16/18 22:40 23:27 23:43 WBC RBC Hgb Hct MCV MCH MCHC RDW Plt Count MPV Gran % Lymph % (Auto) Smith % (Auto) Eos % (Auto) Baso % (Auto) Gran # Lymph # (Auto) Smith # (Auto) Eos # (Auto) Baso # (Auto) pCO2 68 H pO2 63.0 L HCO3 35.0 H ABG pH 7.32 L ABG Total CO2 37.1 H ABG O2 Saturation 93.7 L ABG O2 Content ABG Base Excess 6.5 H ABG Hemoglobin ABG Carboxyhemoglobin POC ABG HHb (Measured) ABG Methemoglobin ABG O2 Capacity ABG Potassium 4.3 Hgb O2 Saturation Sodium 142.0 Chloride 105.0 Glucose 218 H Lactate 1.2 FiO2 30.0 Inspiratory BiPAP 12 Potassium Carbon Dioxide Anion Gap BUN Creatinine Est GFR ( Amer) Est GFR (Non-Af Amer) POC Glucose (mg/dL) 232 H Random Glucose Calcium Total Bilirubin AST ALT Alkaline Phosphatase Total Protein Albumin Globulin Albumin/Globulin Ratio Procalcitonin 0.09 L Arterial Blood Potassium 4.3 Urine Color Urine Appearance Urine pH Ur Specific [place] Urine Protein Urine Glucose (UA) Urine Ketones Urine Blood Urine Nitrate Urine Bilirubin Urine Urobilinogen Ur Leukocyte Esterase Urine RBC Urine WBC Ur Epithelial Cells Amorphous Sediment Urine Bacteria Urine Other 05/17/18 05/17/18 05/17/18 00:43 01:32 05:30 WBC RBC Hgb Hct MCV MCH MCHC RDW Plt Count MPV Gran % Lymph % (Auto) Smith % (Auto) Eos % (Auto) Baso % (Auto) Gran # Lymph # (Auto) Smith # (Auto) Eos # (Auto) Baso # (Auto) pCO2 pO2 HCO3 ABG pH ABG Total CO2 ABG O2 Saturation ABG O2 Content ABG Base Excess ABG Hemoglobin ABG Carboxyhemoglobin POC ABG HHb (Measured) ABG Methemoglobin ABG O2 Capacity ABG Potassium Hgb O2 Saturation Sodium Chloride Glucose Lactate FiO2 Inspiratory BiPAP Potassium Carbon Dioxide Anion Gap BUN Creatinine Est GFR ( Amer) Est GFR (Non-Af Amer) POC Glucose (mg/dL) 231 H 314 H Random Glucose Calcium Total Bilirubin AST ALT Alkaline Phosphatase Total Protein Albumin Globulin Albumin/Globulin Ratio Procalcitonin Arterial Blood Potassium Urine Color Yellow Urine Appearance Cloudy Urine pH 6.0 Ur Specific [place] 1.020 Urine Protein Negative Urine Glucose (UA) Negative Urine Ketones Negative Urine Blood Moderate H Urine Nitrate Negative Urine Bilirubin Negative Urine Urobilinogen 0.2 Ur Leukocyte Esterase Negative Urine RBC 15 - 20 Urine WBC 1 - 3 Ur Epithelial Cells 0 - 2 Amorphous Sediment Few Urine Bacteria Many Urine Other Uyeast 05/17/18 05/17/18 05/17/18 05:40 05:40 07:36 WBC 7.0 RBC 4.50 Hgb 8.9 L Hct 33.8 L MCV 75.1 L MCH 19.8 L MCHC 26.3 L RDW 23.6 H Plt Count 224 MPV 8.9 Gran % 66.2 Lymph % (Auto) 26.9 Smith % (Auto) 6.9 H Eos % (Auto) 0.0 L Baso % (Auto) 0.0 Gran # 4.64 Lymph # (Auto) 1.9 Smith # (Auto) 0.5 Eos # (Auto) 0.0 Baso # (Auto) 0.00 pCO2 pO2 HCO3 ABG pH ABG Total CO2 ABG O2 Saturation ABG O2 Content ABG Base Excess ABG Hemoglobin ABG Carboxyhemoglobin POC ABG HHb (Measured) ABG Methemoglobin ABG O2 Capacity ABG Potassium Hgb O2 Saturation Sodium 145 Chloride 100 Glucose Lactate FiO2 Inspiratory BiPAP Potassium 4.7 Carbon Dioxide 36 H Anion Gap 14 BUN 52 H Creatinine 1.1 Est GFR ( Amer) > 60 Est GFR (Non-Af Amer) > 60 POC Glucose (mg/dL) 197 H Random Glucose 205 H Calcium 8.9 Total Bilirubin 0.7 AST 43 ALT 27 Alkaline Phosphatase 274 H Total Protein 6.5 Albumin 3.2 Globulin 3.4 Albumin/Globulin Ratio 0.9 L Procalcitonin Arterial Blood Potassium Urine Color Urine Appearance Urine pH Ur Specific [place] Urine Protein Urine Glucose (UA) Urine Ketones Urine Blood Urine Nitrate Urine Bilirubin Urine Urobilinogen Ur Leukocyte Esterase Urine RBC Urine WBC Ur Epithelial Cells Amorphous Sediment Urine Bacteria Urine Other 05/17/18 07:40 WBC RBC Hgb Hct MCV MCH MCHC RDW Plt Count MPV Gran % Lymph % (Auto) Smith % (Auto) Eos % (Auto) Baso % (Auto) Gran # Lymph # (Auto) Smith # (Auto) Eos # (Auto) Baso # (Auto) pCO2 60 H pO2 60.0 L HCO3 33.1 H ABG pH 7.35 ABG Total CO2 34.9 H ABG O2 Saturation 93.4 L ABG O2 Content 10.1 L ABG Base Excess 6.5 H ABG Hemoglobin 7.9 L ABG Carboxyhemoglobin 2.4 H POC ABG HHb (Measured) 6.4 H ABG Methemoglobin 0.4 ABG O2 Capacity 10.8 L ABG Potassium Hgb O2 Saturation 90.7 L Sodium Chloride Glucose Lactate FiO2 30.0 Inspiratory BiPAP Potassium Carbon Dioxide Anion Gap BUN Creatinine Est GFR ( Amer) Est GFR (Non-Af Amer) POC Glucose (mg/dL) Random Glucose Calcium Total Bilirubin AST ALT Alkaline Phosphatase Total Protein Albumin Globulin Albumin/Globulin Ratio Procalcitonin Arterial Blood Potassium Urine Color Urine Appearance Urine pH Ur Specific [place] Urine Protein Urine Glucose (UA) Urine Ketones Urine Blood Urine Nitrate Urine Bilirubin Urine Urobilinogen Ur Leukocyte Esterase Urine RBC Urine WBC Ur Epithelial Cells Amorphous Sediment Urine Bacteria Urine Other Critical Care Progress Note - Nutrition Nutrition: Nutrition Category Date Time Status Dysphagia/Modified Consistency Diet [DIET] Diets 05/10/18 Lunch Ordered Attending/Attestation - Attestation I have personally seen and examined this patient.: Yes I have fully participated in the care of the patient.: Yes I have reviewed all pertinent clinical information: Yes Notes (Text): 05/17/18 16:[address] Mcwilliams note
[2018-05-17] MEDS: Acetylcysteine 20% Inhal Soln (4ml) IH SCH ×2 (13:08)
[2018-05-17] MEDS ORDERED: Sodium Chloride 3% for Inhalation 4 ML VIAL.NEB IH SCH (14:00)
[2018-05-17] MEDS ORDERED: Acetylcysteine 20% Inhal Soln (4ml) IH SCH (14:00)
--- NOTE | 2018-05-17 15:38 | CP.PCM.PN ---
<OlamideobdulioRc - Last Filed: 05/17/18 15:49> Subjective - Date & Time of Evaluation Date of Evaluation: 05/17/18 Time of Evaluation: 15:22 - Subjective Subjective: Rc Wong, PGY-1 Progress Note for Hospitalist Service Patient seen and examined at bedside this morning. Patient reports he was had some shortness of breath overnight. Reports improved symptoms this morning after chest PT, mucomyst, steriods and bronchodilators. Admits to coughing up copious amounts of mucous. Denies CP, nausea, vomiting, urinary complaints, abdominal pain and diarrhea. Objective - Vital Signs/Intake and Output Vital Signs (last 24 hours): Temp Pulse Resp BP Pulse Ox 98.2 F 100 H 18 122/67 94 L 05/17/18 12:00 05/17/18 10:01 05/16/18 12:08 05/17/18 10:01 05/16/18 08:32 Intake and Output: 05/17/18 05/17/18 06:59 18:59 Intake Total 420 Output Total 1300 Balance -880 - Medications Medications: Current Medications Acetylcysteine (Acetylcysteine 20%) 4 ml IH [id number] [facility] Albuterol/Ipratropium (Duoneb 3 Mg/0.5 Mg (3 Ml) Ud) 3 ml IH [id number] [facility] Last Admin: 05/17/18 13:07 Dose: 3 ml Albuterol/Ipratropium (Duoneb 3 Mg/0.5 Mg (3 Ml) Ud) 3 ml IH Q2H PRN PRN Reason: Shortness of Breath Arformoterol Tartrate (Brovana) 15 mcg IH [id number] [facility] Last Admin: 05/17/18 07:10 Dose: 15 mcg Aspirin (Aspirin Chewable) 81 mg PO DAILY [facility] Last Admin: 05/17/18 10:02 Dose: 81 mg Atorvastatin Calcium (Lipitor) 20 mg PO HS [facility] Last Admin: 05/16/18 22:14 Dose: 20 mg Budesonide (Pulmicort Respules) 0.5 mg IH [id number] [facility] Last Admin: 05/17/18 07:10 Dose: 0.5 mg Carvedilol (Coreg) 12.5 mg PO BID [facility] Last Admin: 05/17/18 10:00 Dose: 12.5 mg Clonidine HCl (Catapres) 0.2 mg PO BID [facility] Last Admin: 05/17/18 10:01 Dose: 0.2 mg Dextrose (Dextrose 50% Inj) 0 ml IV STAT PRN; Protocol PRN Reason: Hypoglycemia Protocol Docusate Sodium (Colace) 100 mg PO TID [facility] Last Admin: 05/17/18 14:24 Dose: 100 mg Ferrous Sulfate (Feosol Liq) 300 mg PO TID [facility] Last Admin: 05/17/18 14:24 Dose: 300 mg Furosemide (Lasix) 40 mg PO DAILY [facility] Last Admin: 05/17/18 10:01 Dose: 40 mg Furosemide (Lasix) 40 mg IVP Q12 [facility] Last Admin: 05/17/18 09:59 Dose: 40 mg Glipizide (Glucotrol) 5 mg PO ACB [facility] Last Admin: 05/17/18 07:51 Dose: 5 mg Guaifenesin (Robitussin) 100 mg PO Q4H PRN PRN Reason: Cough Heparin Sodium (Porcine) (Heparin) 5,000 units SC Q8 [facility] PRN Reason: Protocol Last Admin: 05/17/18 14:34 Dose: 5,000 units Vancomycin HCl (Vancomycin 1gm) 1 gm in 250 mls @ 167 mls/hr IVPB DAILY [facility] PRN Reason: Protocol Last Admin: 05/17/18 09:57 Dose: 167 mls/hr Meropenem (Merrem Iv 1 Gm Premix) 50 mls @ 100 mls/hr IVPB Q8 [facility] PRN Reason: Protocol Stop: 05/25/18 19:01 Last Admin: 05/17/18 14:18 Dose: 100 mls/hr Milrinone Lactate/Dextrose (Primacor 20mg/100ml D5w) 100 mls @ 17.146 mls/hr IV .Q5H50M PRN; Protocol; 0.375 MCG/KG/MIN PRN Reason: TITRATE PER MD ORDER Last Admin: 05/17/18 09:50 Dose: 0.375 mcg/kg/min, 17.146 mls/hr Insulin Human Regular (Humulin R) 0 units SC ACHS [facility] PRN Reason: Protocol Last Admin: 05/17/18 12:12 Dose: 3 unit Methylprednisolone (Solu-Medrol) 60 mg IVP DAILY [facility] Last Admin: 05/17/18 10:00 Dose: 60 mg Ondansetron HCl (Zofran Tab) 4 mg PO Q8H PRN PRN Reason: Nausea/Vomiting Pantoprazole Sodium (Protonix Ec Tab) 40 mg PO DAILY [facility] Last Admin: 05/17/18 10:01 Dose: 40 mg Polyethylene Glycol (Miralax) 17 gm PO DAILY [facility] Last Admin: 05/17/18 09:59 Dose: 17 gm Spironolactone (Aldactone) 25 mg PO DAILY [facility] Last Admin: 05/17/18 10:01 Dose: 25 mg - Labs Labs: 05/17/18 05:40 05/17/18 05:40 PT 21.4 SECONDS (9.4-12.5) H 05/09/18 17:00 INR 1.85 05/09/18 17:00 APTT 30.9 Seconds (25.1-36.5) 05/09/18 17:00 - Head Exam Head Exam: ATRAUMATIC - Eye Exam Eye Exam: EOMI Pupil Exam: PERRL - Respiratory Exam Respiratory Exam: absent: Respiratory Distress Additional comments: wheezes appreciated in left upper and lower bases. Right lung is clear to auscultation. Patient has overall poor inspiratory effort - Cardiovascular Exam Cardiovascular Exam: RRR, +S1, +S2 - GI/Abdominal Exam GI & Abdominal Exam: Normal Bowel Sounds. absent: Guarding, Rigid - Extremities Exam Extremities Exam: absent: Tenderness Additional comments: dry extremeties noted B/L, has some distal peeling skin - Neurological Exam Neurological Exam: Alert, Oriented x3 - Skin Skin Exam: Dry, Normal Color Assessment and Plan - Assessment and Plan (Free Text) Assessment: This is a 52 year old male with PMH of CHF with last EF this month showing 39%, DM, COPD, CAD with stents, gout, HTN, and HLD presenting for management of acute hypercapnic respiratory failure 2/2 COPD exacerbation with CO2 narcosis. Plan: Acute hypercapnic respiratory failure 2/2 COPD exacerbation -concern for CO2 narcosis with ABG today showing pCO2 of 60 today improved from 81 yesterday -Patient is breathing better today after chest PT, mucomyst, bronchodilators and steroids -tolerated bipap well overnight -CT chest showed complete left lung collapse with volume loss secondary to endobronchial lesion vs. secretins in the distal left mainstem bronchus. Large right and small to moderate left pleural effusions. Diffuse anasarca with extensive abdominal body wall edema -Echo on 05/10 showed mild concentric LVH, systolic function moderately impaired , septal hypokinesis, mild MR, moderate TR, mild pulmonary HTN, aortic root mildly enlarged -CXR today showed complete left hemithorax opacification with stable moderate right pleural effusion and limited leftward mediastinal shift due to left pulmonary volume loss. Rught pleural effusion may have increased -continue duonebs q2 prn, pulmicort q12, lasix 40mg IV q12 and lasix 40mg PO daily, solumedrol 60mg daily, aldactone 25mg -Cardiology on consult, Dr. Suarez -Urology on consult, Dr. Zimmerman for CHF/hydrocele Sepsis with HCAP -WBC today is 7, afebrile -CXR yesterday showed perihilar infiltrate of right lung -currently on vancomycin, merrem day 2 -pending pancultures -pending procalc -ID on consult, Dr. Groves Anarca -likely 2/2 CHF exacerbation - improved -testicular US is significant for diffuse scrotal wall edema, small B/L hydroceles -urology consulted, Dr. Zimmerman CAD -Cardiac cath in 12/2017 revealed EF 30% and LAD lesion 80%. Questionable follow up with cardiology -patient denies use of life vest -trop negative x2 on 05/09 -ASA 81, coreg 12.5mg BID -Cardiology on consult, Dr. Suarez COPD -duonebs q2 prn, pulmicort q12, solumedrol 60mg daily -NC 6 liters O2 -Pulmonology on consult, Dr. Eduardo History of HIV -tested positive for HIV 1 ab and HIV 4th gen positive -per ID, likely false positive IRAIS -unclear if patient previously diagnosed with HIV, patient denies taking home HIV meds -CD4 747, viral load not detected -ID on consult, Dr. Groves Diabetes -accuchecks -glipizide 5mg, insulin human regualar ACHS PPX with SDC and protonix Case reviewed and discussed with attending, Dr. Armas <Sneha Armas R - Last Filed: 05/18/18 07:31> Objective - Vital Signs/Intake and Output Vital Signs (last 24 hours): Temp Pulse Resp BP Pulse Ox 98.5 F 98 H 18 128/61 94 L 05/18/18 00:01 05/18/18 07:20 05/16/18 12:08 05/18/18 03:54 05/16/18 08:32 Intake and Output: 05/18/18 05/18/18 06:59 18:59 Intake Total 200 Balance 200 - Medications Medications: Current Medications Albuterol/Ipratropium (Duoneb 3 Mg/0.5 Mg (3 Ml) Ud) 3 ml IH Q2H PRN PRN Reason: Shortness of Breath Arformoterol Tartrate (Brovana) 15 mcg IH [id number] [facility] Last Admin: 05/18/18 07:18 Dose: 15 mcg Aspirin (Aspirin Chewable) 81 mg PO DAILY [facility] Last Admin: 05/17/18 10:02 Dose: 81 mg Atorvastatin Calcium (Lipitor) 20 mg PO HS [facility] Last Admin: 05/17/18 21:52 Dose: 20 mg Budesonide (Pulmicort Respules) 0.5 mg IH [id number] [facility] Last Admin: 05/18/18 07:18 Dose: 0.5 mg Carvedilol (Coreg) 12.5 mg PO BID [facility] Last Admin: 05/17/18 17:29 Dose: 12.5 mg Clonidine HCl (Catapres) 0.2 mg PO BID [facility] Last Admin: 05/17/18 17:28 Dose: 0.2 mg Dextrose (Dextrose 50% Inj) 0 ml IV STAT PRN; Protocol PRN Reason: Hypoglycemia Protocol Docusate Sodium (Colace) 100 mg PO TID [facility] Last Admin: 05/17/18 17:29 Dose: 100 mg Ferrous Sulfate (Feosol Liq) 300 mg PO TID [facility] Last Admin: 05/17/18 17:31 Dose: 300 mg Furosemide (Lasix) 40 mg PO DAILY [facility] Last Admin: 05/17/18 10:01 Dose: 40 mg Furosemide (Lasix) 40 mg IVP Q12 [facility] Last Admin: 05/17/18 21:52 Dose: 40 mg Glipizide (Glucotrol) 5 mg PO ACB [facility] Last Admin: 05/17/18 07:51 Dose: 5 mg Guaifenesin (Robitussin) 100 mg PO Q4H PRN PRN Reason: Cough Heparin Sodium (Porcine) (Heparin) 5,000 units SC Q8 [facility] PRN Reason: Protocol Last Admin: 05/18/18 05:33 Dose: 5,000 units Vancomycin HCl (Vancomycin 1gm) 1 gm in 250 mls @ 167 mls/hr IVPB DAILY [facility] PRN Reason: Protocol Last Admin: 05/17/18 09:57 Dose: 167 mls/hr Meropenem (Merrem Iv 1 Gm Premix) 50 mls @ 100 mls/hr IVPB Q8 [facility] PRN Reason: Protocol Stop: 05/25/18 19:01 Last Admin: 05/18/18 05:33 Dose: 100 mls/hr Milrinone Lactate/Dextrose (Primacor 20mg/100ml D5w) 100 mls @ 17.146 mls/hr IV .Q5H50M PRN; Protocol; 0.375 MCG/KG/MIN PRN Reason: TITRATE PER MD ORDER Last Admin: 05/18/18 03:54 Dose: 0.375 mcg/kg/min, 17.146 mls/hr Insulin Human Regular (Humulin R) 0 units SC ACHS [facility] PRN Reason: Protocol Last Admin: 05/17/18 22:00 Dose: Not Given Ipratropium [place] (Atrovent) 0.5 mg IH [id number] [facility] Last Admin: 05/18/18 07:18 Dose: 0.5 mg Methylprednisolone (Solu-Medrol) 60 mg IVP DAILY [facility] Last Admin: 05/17/18 10:00 Dose: 60 mg Ondansetron HCl (Zofran Tab) 4 mg PO Q8H PRN PRN Reason: Nausea/Vomiting Pantoprazole Sodium (Protonix Ec Tab) 40 mg PO DAILY [facility] Last Admin: 05/17/18 10:01 Dose: 40 mg Polyethylene Glycol (Miralax) 17 gm PO DAILY [facility] Last Admin: 05/17/18 09:59 Dose: 17 gm Spironolactone (Aldactone) 25 mg PO DAILY [facility] Last Admin: 05/17/18 10:01 Dose: 25 mg - Labs Labs: 05/18/18 06:15 05/18/18 06:15 PT 21.4 SECONDS (9.4-12.5) H 05/09/18 17:00 INR 1.85 05/09/18 17:00 APTT 30.9 Seconds (25.1-36.5) 05/09/18 17:00 Attending/Attestation - Attestation I have personally seen and examined this patient.: Yes I have fully participated in the care of the patient.: Yes I have reviewed all pertinent clinical information, including history, physical exam and plan: Yes Notes (Text): Patient seen and examined by me at 9.40 AM with resident 05/17/18. Case including HPI, physical exam, and assessment and plan discussed with resident. Agree with above with following additions/corrections. Patient is a 52 year old male with past medical history significant for COPD, CAD, CHF, DM2, HTN, hperlipidemia, lumbar radiculopathy, and gout that presented to the emergency room with shortness of breath. Patient states he feels like he is feeling better. Shortness of breath has improved but still feels a little short of breath. Patient has been using BIPAP in the ICU. He is denying any chest pain or palpitations. No headache or dizziness. No fevers or chills. No nausea, vomiting, or abdominal pain. No dysuria. He states he has been coughing today and bringing up some phlegm. Physical exam: Gen: Awake and alert lying in bed in no acute distress HEENT: Normocephalic, atraumatic. Extraocular muscles intact, pupils equal reactive. No scleral icterus. Oropharynx is pink and moist. Neck is supple. Cardiovascular: Normal rhythm. Normal S1, S2. No murmurs, rubs, or gallops appreciated Pulmonary: Respiratory effort improved. Mild use of accessory muscles. Decreased breath sounds. No rhonchi, rales, or wheezing appreciated today. Gastrointestinal: Soft, nontender, nondistended. Globular abdomen. Positive bowel sounds all 4 quadrants, no guarding. Musculoskeletal: Moves all extremities. No calf tenderness. Positive lower extremity edema Central nervous system: AAO x 3. Dermatologic: Skin warm and dry, bilateral lower extremity chronic stasis color changes. Assessment and plan: Patient is a 52 year old male with past medical history significant for COPD, CAD, CHF, DM2, HTN, hperlipidemia, lumbar radiculopathy, and gout that presented to the emergency room with shortness of breath. 1. Acute respiratory failure. CO2 narcosis. Improved. CO2 on ABG now 60. Patient to continue BiPAP use as instructed. Importance of compliance discussed with the patient. 2. Complete opacification of left lung on chest xray. Chest CT 05/16/2018 per radiologist showed complete left lung collapse with volume loss secondary to endobronchial lesion versus secretions in the distal left mainstem bronchus; large right and small to moderate left pleural effusions; small amount of perihepatic and perisplenic ascites; diffuse anasarca with extensive abdominal body wall edema. Chest x-ray showed per radiologist shows complete left hemithorax opacification with stable moderate right pleural effusion and limited left for mediastinal shift due to left pulmonary volume loss; right pleural effusion may have increased. Continue with Lasix 40 mg IV every 12 hours and 40 mg oral daily. Monitor ins and outs. Continue chest PT 3. Healthcare acquired pneumonia. ID following, recommendations appreciated. Continue vancomycin and meropenem, day #2. Continue guaifenesin as needed. Continue nebulizer treatments. 4. Respiratory distress. Multifactorial. Likely secondary to acute on chronic systolic CHF exacerbation, COPD, and non compliance with medications. Worsening now secondary to CO2 narcosis and left lung opacification, pleural effusions, and healthcare acquired pneumonia. Started on milrinone drip. Continue Coreg, Lasix, and Aldactone. Continue to monitor I's and O's. Continue to monitor daily weights. Cardiology following, recommendations appreciated 5. COPD exacerbation. Continue with BiPAP at bedtime and as needed during the day. Continue Solu-Medrol. Continue Brovana, Pulmicort, and nebulizer treatments. Continue O2 via nasal cannula. Pulmonary following, recommendations appreciated. 6. Medication noncompliance. Importance of compliance discussed with patient at length. Palliative care consulted. Psychiatry following, recommendations appreciated. 7. HIV 1 antibody positive, HIV fourth generation positive, likely false positive. CD4 count 747. Viral load not detected. ID following, recommendations appreciated. 8. Abnormal urinalysis. ID following, recommendations appreciated. S/P antibiotic treatment. 9. CAD s/p stent placement. Patient non-compliant with medications and follow up with doctors. Contine Coreg, ASA 10. Hypertension. Continue Clonidine, lasix, and Coreg. On milrinone drip 11. DM2. Continue insulin sliding scale and glipizide. Continue to monitor accuchecks. 12. Hyperlipidemia. Continue Lipitor 13. Chronic anemia. No signs of acute bleeding. H&H stable. Continue to monitor. Continue ferrous sulfate 14. Scrotal edema. Likely secondary to anasarca from decompensated CHF. Testicular ultrasound per radiologist shows diffuse scrotal wall edema, no drainable fluid collection, small bilateral hydroceles, no evidence for testicular torsion or mass. Urology following, recommendations appreciated. 15. GI/DVT prophylaxis. Protonix and heparin Case was discussed in detail with the patient, senior radiation protection technician, and toter regarding current diagnosis and treatment plan.
--- NOTE | 2018-05-17 16:41 | CP.PCM.PN ---
Addendum entered and electronically signed by Rc Wong DO 05/17/18 16:43 : Please disregard this progress note. Please see progress note on 05/17/18 at 15: 22. Original Note: <Rc Wong - Last Filed: 05/17/18 16:25> Subjective - Date & Time of Evaluation Date of Evaluation: 05/17/18 Time of Evaluation: 16:25 - Subjective Subjective: Rc Wong, PGY-1 Progress Note for Hospitalist Service Patient seen and examined at bedside this morning. No acute events overnight. Sore throat is improved. Denies CP, SOB, abdominal pain, headaches, numbness, tingling, swelling in extremities and urinary complaints. Objective - Vital Signs/Intake and Output Vital Signs (last 24 hours): Temp Pulse Resp BP Pulse Ox 98.2 F 100 H 18 122/67 94 L 05/17/18 12:00 05/17/18 10:01 05/16/18 12:08 05/17/18 10:01 05/16/18 08:32 Intake and Output: 05/17/18 05/17/18 06:59 18:59 Intake Total 420 100 Output Total 1300 Balance -880 100 - Medications Medications: Current Medications Albuterol/Ipratropium (Duoneb 3 Mg/0.5 Mg (3 Ml) Ud) 3 ml IH Q2H PRN PRN Reason: Shortness of Breath Arformoterol Tartrate (Brovana) 15 mcg IH [id number] [facility] Last Admin: 05/17/18 07:10 Dose: 15 mcg Aspirin (Aspirin Chewable) 81 mg PO DAILY [facility] Last Admin: 05/17/18 10:02 Dose: 81 mg Atorvastatin Calcium (Lipitor) 20 mg PO HS [facility] Last Admin: 05/16/18 22:14 Dose: 20 mg Budesonide (Pulmicort Respules) 0.5 mg IH [id number] [facility] Last Admin: 05/17/18 07:10 Dose: 0.5 mg Carvedilol (Coreg) 12.5 mg PO BID [facility] Last Admin: 05/17/18 10:00 Dose: 12.5 mg Clonidine HCl (Catapres) 0.2 mg PO BID [facility] Last Admin: 05/17/18 10:01 Dose: 0.2 mg Dextrose (Dextrose 50% Inj) 0 ml IV STAT PRN; Protocol PRN Reason: Hypoglycemia Protocol Docusate Sodium (Colace) 100 mg PO TID [facility] Last Admin: 05/17/18 14:24 Dose: 100 mg Ferrous Sulfate (Feosol Liq) 300 mg PO TID [facility] Last Admin: 05/17/18 14:24 Dose: 300 mg Furosemide (Lasix) 40 mg PO DAILY [facility] Last Admin: 05/17/18 10:01 Dose: 40 mg Furosemide (Lasix) 40 mg IVP Q12 [facility] Last Admin: 05/17/18 09:59 Dose: 40 mg Glipizide (Glucotrol) 5 mg PO ACB [facility] Last Admin: 05/17/18 07:51 Dose: 5 mg Guaifenesin (Robitussin) 100 mg PO Q4H PRN PRN Reason: Cough Heparin Sodium (Porcine) (Heparin) 5,000 units SC Q8 [facility] PRN Reason: Protocol Last Admin: 05/17/18 14:34 Dose: 5,000 units Vancomycin HCl (Vancomycin 1gm) 1 gm in 250 mls @ 167 mls/hr IVPB DAILY [facility] PRN Reason: Protocol Last Admin: 05/17/18 09:57 Dose: 167 mls/hr Meropenem (Merrem Iv 1 Gm Premix) 50 mls @ 100 mls/hr IVPB Q8 [facility] PRN Reason: Protocol Stop: 05/25/18 19:01 Last Admin: 05/17/18 14:18 Dose: 100 mls/hr Milrinone Lactate/Dextrose (Primacor 20mg/100ml D5w) 100 mls @ 17.146 mls/hr IV .Q5H50M PRN; Protocol; 0.375 MCG/KG/MIN PRN Reason: TITRATE PER MD ORDER Last Admin: 05/17/18 15:35 Dose: 0.375 mcg/kg/min, 17.146 mls/hr Insulin Human Regular (Humulin R) 0 units SC ACHS [facility] PRN Reason: Protocol Last Admin: 05/17/18 12:12 Dose: 3 unit Ipratropium Loco (Atrovent) 0.5 mg IH [id number] [facility] Methylprednisolone (Solu-Medrol) 60 mg IVP DAILY [facility] Last Admin: 05/17/18 10:00 Dose: 60 mg Ondansetron HCl (Zofran Tab) 4 mg PO Q8H PRN PRN Reason: Nausea/Vomiting Pantoprazole Sodium (Protonix Ec Tab) 40 mg PO DAILY [facility] Last Admin: 05/17/18 10:01 Dose: 40 mg Polyethylene Glycol (Miralax) 17 gm PO DAILY [facility] Last Admin: 05/17/18 09:59 Dose: 17 gm Spironolactone (Aldactone) 25 mg PO DAILY [facility] Last Admin: 05/17/18 10:01 Dose: 25 mg - Labs Labs: 05/17/18 05:40 05/17/18 05:40 PT 21.4 SECONDS (9.4-12.5) H 05/09/18 17:00 INR 1.85 05/09/18 17:00 APTT 30.9 Seconds (25.1-36.5) 05/09/18 17:00 - Constitutional Appears: No Acute Distress - Head Exam Head Exam: ATRAUMATIC, NORMAL INSPECTION - Eye Exam Eye Exam: EOMI Pupil Exam: PERRL - Respiratory Exam Respiratory Exam: Clear to Ausculation Bilateral. absent: Respiratory Distress - Cardiovascular Exam Cardiovascular Exam: REGULAR RHYTHM, +S1, +S2 - GI/Abdominal Exam GI & Abdominal Exam: Normal Bowel Sounds. absent: Firm, Guarding - Neurological Exam Neurological Exam: Alert, Awake, CN II-XII Intact, Oriented x3 Neuro motor strength exam: Left Upper Extremity: 5, Right Upper Extremity: 5, Left Lower Extremity: 5, Right Lower Extremity: 5 - Skin Skin Exam: Normal Color, Warm Assessment and Plan - Assessment and Plan (Free Text) Assessment: This is a 29 year old male with no PMH presenting to the hospital for management of first time witnessed seizure at home of uncertain etiology. Patient states he feels well and his sore throat symptoms have improved. He has not had a seizure since admission and denies headaches. Will follow up with neurology recommendations. Plan: Seizures of unknown etiology -aspiration and seizure precautions -CT head, brain MRI, maxillofacial CT and CXR are unremarkable at this time -EEG shows abnormal EEG due to presence of mild diffuse slowing throughout the recording consistent with mild B/L cerebral dysfunction, but no evidence of any epileptiform activity. -continue keppra 500mg IV q12 -continue ativan prn -UDS is negative -U/A positive for protein, blood, trace ketones and moderate bacteria -Neurology on consult, Dr. Stevens Encephalitis -LP: significant for glucose of 79 -WBC today is 8.2 today from 12.4, afebrile -EBV level is elevated -HIV 4th gen is non reactive -[place], CMV, HSV, FTA-ABS, leptospira, and quantiferon pending -blood culture, throat culture, urine culture and CSF culture pending -hepatitis panel is negative -stopped acyclovir -ID on consult, Dr. Vivas Elevated [place] [address] [place] 2238 yesterday -patient and staff deny seizure activity over last day -will continue to monitor Elevated lactate - resolved -Lactate on admission was 4, down to 1.2 on 05/15 -Currently on NS @ 100 Case reviewed and discussed with attending, Dr. Armas <Sneha Armas - Last Filed: 05/18/18 07:22> Objective - Vital Signs/Intake and Output Vital Signs (last 24 hours): Temp Pulse Resp BP Pulse Ox 98.5 F 82 18 128/61 94 L 05/18/18 00:01 05/18/18 03:54 05/16/18 12:08 05/18/18 03:54 05/16/18 08:32 Intake and Output: 05/18/18 05/18/18 06:59 18:59 Intake Total 200 Balance 200 - Medications Medications: Current Medications Albuterol/Ipratropium (Duoneb 3 Mg/0.5 Mg (3 Ml) Ud) 3 ml IH Q2H PRN PRN Reason: Shortness of Breath Arformoterol Tartrate (Brovana) 15 mcg IH [id number] [facility] Last Admin: 05/18/18 07:18 Dose: 15 mcg Aspirin (Aspirin Chewable) 81 mg PO DAILY [facility] Last Admin: 05/17/18 10:02 Dose: 81 mg Atorvastatin Calcium (Lipitor) 20 mg PO HS [facility] Last Admin: 05/17/18 21:52 Dose: 20 mg Budesonide (Pulmicort Respules) 0.5 mg IH [id number] [facility] Last Admin: 05/18/18 07:18 Dose: 0.5 mg Carvedilol (Coreg) 12.5 mg PO BID [facility] Last Admin: 05/17/18 17:29 Dose: 12.5 mg Clonidine HCl (Catapres) 0.2 mg PO BID [facility] Last Admin: 05/17/18 17:28 Dose: 0.2 mg Dextrose (Dextrose 50% Inj) 0 ml IV STAT PRN; Protocol PRN Reason: Hypoglycemia Protocol Docusate Sodium (Colace) 100 mg PO TID [facility] Last Admin: 05/17/18 17:29 Dose: 100 mg Ferrous Sulfate (Feosol Liq) 300 mg PO TID [facility] Last Admin: 05/17/18 17:31 Dose: 300 mg Furosemide (Lasix) 40 mg PO DAILY [facility] Last Admin: 05/17/18 10:01 Dose: 40 mg Furosemide (Lasix) 40 mg IVP Q12 [facility] Last Admin: 05/17/18 21:52 Dose: 40 mg Glipizide (Glucotrol) 5 mg PO ACB [facility] Last Admin: 05/17/18 07:51 Dose: 5 mg Guaifenesin (Robitussin) 100 mg PO Q4H PRN PRN Reason: Cough Heparin Sodium (Porcine) (Heparin) 5,000 units SC Q8 [facility] PRN Reason: Protocol Last Admin: 05/18/18 05:33 Dose: 5,000 units Vancomycin HCl (Vancomycin 1gm) 1 gm in 250 mls @ 167 mls/hr IVPB DAILY [facility] PRN Reason: Protocol Last Admin: 05/17/18 09:57 Dose: 167 mls/hr Meropenem (Merrem Iv 1 Gm Premix) 50 mls @ 100 mls/hr IVPB Q8 [facility] PRN Reason: Protocol Stop: 05/25/18 19:01 Last Admin: 05/18/18 05:33 Dose: 100 mls/hr Milrinone Lactate/Dextrose (Primacor 20mg/100ml D5w) 100 mls @ 17.146 mls/hr IV .Q5H50M PRN; Protocol; 0.375 MCG/KG/MIN PRN Reason: TITRATE PER MD ORDER Last Admin: 05/18/18 03:54 Dose: 0.375 mcg/kg/min, 17.146 mls/hr Insulin Human Regular (Humulin R) 0 units SC ACHS [facility] PRN Reason: Protocol Last Admin: 05/17/18 22:00 Dose: Not Given Ipratropium Loco (Atrovent) 0.5 mg IH [id number] [facility] Last Admin: 05/18/18 07:18 Dose: 0.5 mg Methylprednisolone (Solu-Medrol) 60 mg IVP DAILY [facility] Last Admin: 05/17/18 10:00 Dose: 60 mg Ondansetron HCl (Zofran Tab) 4 mg PO Q8H PRN PRN Reason: Nausea/Vomiting Pantoprazole Sodium (Protonix Ec Tab) 40 mg PO DAILY [facility] Last Admin: 05/17/18 10:01 Dose: 40 mg Polyethylene Glycol (Miralax) 17 gm PO DAILY [facility] Last Admin: 05/17/18 09:59 Dose: 17 gm Spironolactone (Aldactone) 25 mg PO DAILY [facility] Last Admin: 05/17/18 10:01 Dose: 25 mg - Labs Labs: 05/18/18 06:15 05/18/18 06:15 PT 21.4 SECONDS (9.4-12.5) H 05/09/18 17:00 INR 1.85 05/09/18 17:00 APTT 30.9 Seconds (25.1-36.5) 05/09/18 17:00 Attending/Attestation - Attestation Notes (Text): Note written in error
[2018-05-17] MEDS: Ipratropium 0.02% Inhal Soln (0.5 mg/2.5 ml) UD IH SCH (19:55)
[2018-05-18 00:04] LABS: ARTERIAL BLOOD GAS HCO3 36.4 mmol/L (21-28); ARTERIAL BLOOD GAS HEMOGLOBIN 7.8 g/dL (11.7-17.4); ARTERIAL BLOOD GAS O2 CAPACITY 10.6 mL/dl (16-24); ARTERIAL BLOOD GAS O2 CONTENT 9.3 ML/dl (15-23); ARTERIAL BLOOD GAS O2 SAT 87.7 % (95-98); ARTERIAL BLOOD GAS PCO2 69 mm/Hg (35-45); ARTERIAL BLOOD GAS PH 7.33 (7.35-7.45); ARTERIAL BLOOD GAS TCO2 38.5 mmol.L (22-28)
[2018-05-18] MEDS: Ipratropium 0.02% Inhal Soln (0.5 mg/2.5 ml) UD IH SCH ×4 (02:10→19:23)
[2018-05-18] MEDS: Milrinone 20mg/100ml D5W 100 ML IV PRN ×4 (03:54→22:56)
[2018-05-18] MEDS: Meropenem IV 1 gm in NS 50 ML IVPB SCH ×3 (05:33→22:48)
[2018-05-18 06:38] LABS: BASO # 0.01 K/mm3 (0.0-2.0); BASO % 0.1 % (0.0-3.0); EOS % 0.3 % (1.5-5.0); GRAN # 6.6 (1.4-6.5); GRAN % 56.7 % (50.0-68.0); HEMOGLOBIN 8.5 g/dL (14.0-18.0); LYMPH # 3.2 (1.2-3.4); LYMPH % 27.8 % (22.0-35.0); MEAN CELL VOLUME 76.3 fl (80.0-105.0); MEAN CORPUSCULAR HEMOGLOBIN 19.9 pg (25.0-35.0); MEAN CORPUSCULAR HGB CONC 26.1 g/dl (31.0-37.0); MEAN PLATELET VOLUME 8.8 fl (7.0-11.0); MONO # 1.8 (0.1-0.6); MONO % 15.1 % (1.0-6.0); RBC 4.27 10^6/uL (3.5-6.1); RED CELL DISTRIBUTION WIDTH 24.4 % (11.5-14.5); WHITE BLOOD COUNT 11.6 10^3/ul (4.5-11.0)
[2018-05-18 06:50] LABS: ARTERIAL BLOOD GAS HCO3 35.1 mmol/L (21-28); ARTERIAL BLOOD GAS HEMOGLOBIN 8.1 g/dL (11.7-17.4); ARTERIAL BLOOD GAS O2 CAPACITY 11.1 mL/dl (16-24); ARTERIAL BLOOD GAS O2 CONTENT 9.9 ML/dl (15-23); ARTERIAL BLOOD GAS O2 SAT 89.3 % (95-98); ARTERIAL BLOOD GAS PCO2 73 mm/Hg (35-45); ARTERIAL BLOOD GAS PH 7.29 (7.35-7.45); ARTERIAL BLOOD GAS TCO2 37.3 mmol.L (22-28)
[2018-05-18 06:59] LABS: ALBUMIN 3.2 g/dL (3.0-4.8); ALT/SGPT 24 U/L (7-56); AST/SGOT 27 U/L (17-59); BLOOD UREA NITROGEN 53 mg/dL (7-21); CALCIUM 8.7 mg/dL (8.4-10.5); GFR NON-AFRICAN AMERICAN > 60
[2018-05-18] MEDS: Budesonide 0.5 mg/2 ml Inhal Susp UD IH SCH ×2 (07:18→19:23)
[2018-05-18] MEDS: Arformoterol 15 mcg/2 ml Inh Sol IH SCH ×2 (07:18→19:23)
[2018-05-18] MEDS: Insulin Regular 1 UNITS/0.01 ML ML SC SCH ×4 (07:49→22:00)
[2018-05-18] MEDS: Ferrous Sulfate 300 mg/5 mL Liq UD PO SCH ×3 (09:57→17:09)
[2018-05-18] MEDS: Vancomycin 1gm in NS 250ml 1 GM/250 ML BAG IVPB SCH (09:59)
[2018-05-18] MEDS: Pantoprazole 40 mg EC Tab PO SCH (09:59)
[2018-05-18] MEDS: POLYETHYLENE GLYCOL 3350 17 GM/Dose PACKET PO SCH (09:59)
--- NOTE | 2018-05-18 10:16 | RAD ---
Date of service: 05/18/2018 HISTORY: complete opacification of left lung COMPARISON: 05/17/2018 FINDINGS: LUNGS: There is complete opacification of the left lung. Vascular congestion is visible on the right as well as small right pleural effusions PLEURA: As above CARDIOVASCULAR: Cardiomegaly OSSEOUS STRUCTURES: No significant abnormalities. VISUALIZED UPPER ABDOMEN: Normal. OTHER FINDINGS: None. IMPRESSION: There is complete opacification of the left lung. Vascular congestion is visible on the right as well as small right pleural effusions
--- NOTE | 2018-05-18 11:52 | PN ---
Copied To: Harris Todd MD Attending MD: Harris Todd MD DATE: 05/18/2018 SUBJECTIVE: The patient is seen early this morning in room 129, bed 4. He is awake and he has had no fever and an uneventful night. PHYSICAL EXAMINATION: VITAL SIGNS: Temperature is 98, blood pressure is 128/60, respiratory rate of 18. HEENT: Unremarkable. NECK: Supple. LUNGS: Have decreased breath sounds. HEART: Normal S1, S2. ABDOMEN: Soft, nontender. LABORATORY EXAMINATION: Reveals a white count of 11,600, hemoglobin of 8. Chemistries reveals BUN of 53, creatinine of 1 and procalcitonin is noted to be negative x2. Urinalysis is noted and stool for occult blood is negative. The toxicology is reviewed. The patient's T cells are 727. HIV PCR is not detectable and the HIV 2 antibody is negative. HIV 1 and 2 antigen antibody is positive. ASSESSMENT AND PLAN: A 52-year-old male who was initially admitted with morbid obesity, body mass index of 43, hypoxia, hypercapnic respiratory failure, acute decompensated congestive heart failure, chronic obstructive lung disease with good T-cells, undetectable human immunodeficiency virus, most likely a false positive Britney test, now with sepsis with healthcare-associated pneumonia, on day #3 of vancomycin and meropenem. Pending panculture results. Although the procalcitonin is negative, we still treat as a bacterial healthcare-associated pneumonia. Pending sputum cultures and thus far repeat blood cultures are negative. We will follow closely with you. Harris Tdod MD
--- NOTE | 2018-05-18 13:43 | CP.PCM.PN ---
<Rc Wong - Last Filed: 05/18/18 15:32> Subjective - Date & Time of Evaluation Date of Evaluation: 05/18/18 Time of Evaluation: 13:37 - Subjective Subjective: Rc Wong, PGY-1 Progress Note for Hospitalist Service Patient seen and examined at bedside this morning in ICU. No acute events overnight. Patient has not been compliant with bipap overnight. Will consider bronchoscopy. Currently admitting to SOB. Denies CP, abdominal pain, urinary complaints, headaches and swelling. Objective - Vital Signs/Intake and Output Vital Signs (last 24 hours): Temp Pulse Resp BP Pulse Ox 98 F 85 18 137/85 94 L 05/18/18 06:00 05/18/18 10:33 05/16/18 12:08 05/18/18 10:33 05/16/18 08:32 Intake and Output: 05/18/18 05/18/18 06:59 18:59 Intake Total 705 100 Output Total 800 Balance -95 100 - Medications Medications: Current Medications Albuterol/Ipratropium (Duoneb 3 Mg/0.5 Mg (3 Ml) Ud) 3 ml IH Q2H PRN PRN Reason: Shortness of Breath Arformoterol Tartrate (Brovana) 15 mcg IH [id number] [facility] Last Admin: 05/18/18 07:18 Dose: 15 mcg Aspirin (Aspirin Chewable) 81 mg PO DAILY [facility] Last Admin: 05/18/18 10:00 Dose: 81 mg Atorvastatin Calcium (Lipitor) 20 mg PO HS [facility] Last Admin: 05/17/18 21:52 Dose: 20 mg Budesonide (Pulmicort Respules) 0.5 mg IH [id number] [facility] Last Admin: 05/18/18 07:18 Dose: 0.5 mg Carvedilol (Coreg) 12.5 mg PO BID [facility] Last Admin: 05/18/18 10:00 Dose: 12.5 mg Clonidine HCl (Catapres) 0.2 mg PO BID [facility] Last Admin: 05/18/18 09:58 Dose: 0.2 mg Dextrose (Dextrose 50% Inj) 0 ml IV STAT PRN; Protocol PRN Reason: Hypoglycemia Protocol Docusate Sodium (Colace) 100 mg PO TID [facility] Last Admin: 05/18/18 13:21 Dose: 100 mg Ferrous Sulfate (Feosol Liq) 300 mg PO TID [facility] Last Admin: 05/18/18 09:57 Dose: 300 mg Furosemide (Lasix) 40 mg IVP Q12 [facility] Last Admin: 05/18/18 10:01 Dose: 40 mg Glipizide (Glucotrol) 5 mg PO ACB [facility] Last Admin: 05/18/18 07:49 Dose: 5 mg Guaifenesin (Robitussin) 100 mg PO Q4H PRN PRN Reason: Cough Heparin Sodium (Porcine) (Heparin) 5,000 units SC Q8 [facility] PRN Reason: Protocol Last Admin: 05/18/18 13:22 Dose: 5,000 units Vancomycin HCl (Vancomycin 1gm) 1 gm in 250 mls @ 167 mls/hr IVPB DAILY [facility] PRN Reason: Protocol Last Admin: 05/18/18 09:59 Dose: 167 mls/hr Meropenem (Merrem Iv 1 Gm Premix) 50 mls @ 100 mls/hr IVPB Q8 [facility] PRN Reason: Protocol Stop: 05/25/18 19:01 Last Admin: 05/18/18 13:22 Dose: 100 mls/hr Milrinone Lactate/Dextrose (Primacor 20mg/100ml D5w) 100 mls @ 17.146 mls/hr IV .Q5H50M PRN; Protocol; 0.375 MCG/KG/MIN PRN Reason: TITRATE PER MD ORDER Last Admin: 05/18/18 10:35 Dose: 0.375 mcg/kg/min, 17.146 mls/hr Insulin Human Regular (Humulin R) 0 units SC ACHS [facility] PRN Reason: Protocol Last Admin: 05/18/18 11:30 Dose: 1 unit Ipratropium [place] (Atrovent) 0.5 mg IH [id number] [facility] Last Admin: 05/18/18 13:29 Dose: 0.5 mg Lisinopril (Zestril) 2.5 mg PO DAILY [facility] Last Admin: 05/18/18 10:33 Dose: 2.5 mg Methylprednisolone (Solu-Medrol) 60 mg IVP DAILY [facility] Last Admin: 05/18/18 09:58 Dose: 60 mg Ondansetron HCl (Zofran Tab) 4 mg PO Q8H PRN PRN Reason: Nausea/Vomiting Pantoprazole Sodium (Protonix Ec Tab) 40 mg PO DAILY [facility] Last Admin: 05/18/18 09:59 Dose: 40 mg Polyethylene Glycol (Miralax) 17 gm PO DAILY [facility] Last Admin: 05/18/18 09:59 Dose: 17 gm Spironolactone (Aldactone) 25 mg PO DAILY [facility] Last Admin: 05/18/18 10:00 Dose: 25 mg - Labs Labs: 05/18/18 06:15 05/18/18 06:15 PT 21.4 SECONDS (9.4-12.5) H 05/09/18 17:00 INR 1.85 05/09/18 17:00 APTT 30.9 Seconds (25.1-36.5) 05/09/18 17:00 - Head Exam Head Exam: ATRAUMATIC, NORMOCEPHALIC - Eye Exam Eye Exam: EOMI Pupil Exam: PERRL - ENT Exam ENT Exam: Normal Exam - Respiratory Exam Respiratory Exam: Wheezes Additional comments: patient has poor inspiratory effort. expiratory wheezing is appreciated in B/L lung cano - Cardiovascular Exam Cardiovascular Exam: REGULAR RHYTHM, +S1, +S2 - GI/Abdominal Exam GI & Abdominal Exam: Soft, Normal Bowel Sounds. absent: Guarding - Extremities Exam Extremities Exam: absent: Calf Tenderness Additional comments: distal extremities are dry and peeling - Neurological Exam Neurological Exam: Alert, Awake, Oriented x3 - Skin Skin Exam: Dry, Warm Assessment and Plan - Assessment and Plan (Free Text) Assessment: This is a 52 year old male with PMH of CHF with last EF this month showing 39%, DM, COPD, CAD with stents, gout, HTN, and HLD presenting for management of acute hypercapnic respiratory failure 2/2 COPD exacerbation with CO2 narcosis and acute on chronic systolic CHF. Patient non compliant with bipap overnight, plan for bronchoscopy. Plan: Acute hypercapnic respiratory failure 2/2 COPD exacerbation -CO2 narcosis worsened today with CO2 on ABG this morning of 73 from 69 yesterday -Patient noncompliant with Bipap overnight -continue with treatment of chest PT, mucomyst, bronchodilators and steroids -plan for bronchoscopy per ICU team -CT chest showed complete left lung collapse with volume loss secondary to endobronchial lesion vs. secretins in the distal left mainstem bronchus. Large right and small to moderate left pleural effusions. Diffuse anasarca with extensive abdominal body wall edema -Urology on consult, Dr. Zimmerman for CHF/hydrocele Acute on chronic systolic CHF -CXR today showed complete opacification of the left lung. Vascular congestion is visible on the right as well as small right pleural effusions -continue with lasix 40mg IV q12 and aldactone 25mg -currently on milrinone drip -Echo on 05/10 showed mild concentric LVH, systolic function moderately impaired , septal hypokinesis, mild MR, moderate TR, mild pulmonary HTN, aortic root mildly enlarged -Cardiology on consult, Dr. Suarez -Continue Coreg, Lasix, and Aldactone. Continue to monitor I's and O's. Continue to monitor daily weights. Cardiology following, recommendations appreciated Sepsis with HCAP -WBC today is 8.1, afebrile -CXR previously showed perihilar infiltrate of right lung -currently on vancomycin, merrem day 3 -blood culture negative after 24 hours -MRSA not detected -gram stain pending -ID on consult, Dr. Yaneli Lanza -likely 2/2 CHF exacerbation - improved -testicular US is significant for diffuse scrotal wall edema, small B/L hydroceles -urology consulted, Dr. Zimmerman CAD -Cardiac cath in 12/2017 revealed EF 30% and LAD lesion 80%. Questionable follow up with cardiology -patient denies use of life vest -trop negative x2 on 05/09 -ASA 81, coreg 12.5mg BID -Cardiology on consult, Dr. Suarez History of HIV -tested positive for HIV 1 ab and HIV 4th gen positive -per ID, likely false positive IRAIS -unclear if patient previously diagnosed with HIV, patient denies taking home HIV meds -CD4 747, viral load not detected -ID on consult, Dr. Groves Diabetes -accuchecks -glipizide 5mg, insulin human regualar ACHS PPX with SDC and protonix Patient seen, case reviewed by and discussed with attending, Dr. Armas <Sneha Armas - Last Filed: 05/19/18 07:21> Objective - Vital Signs/Intake and Output Vital Signs (last 24 hours): Temp Pulse Resp BP Pulse Ox 98 F 97 H 18 117/52 L 94 L 05/19/18 00:01 05/19/18 04:52 05/16/18 12:08 05/19/18 04:52 05/16/18 08:32 Intake and Output: 05/19/18 05/19/18 06:59 18:59 Intake Total 200 Balance 200 - Medications Medications: Current Medications Albuterol/Ipratropium (Duoneb 3 Mg/0.5 Mg (3 Ml) Ud) 3 ml IH Q2H PRN PRN Reason: Shortness of Breath Arformoterol Tartrate (Brovana) 15 mcg IH [id number] [facility] Last Admin: 05/18/18 19:23 Dose: 15 mcg Aspirin (Aspirin Chewable) 81 mg PO DAILY [facility] Last Admin: 05/18/18 10:00 Dose: 81 mg Atorvastatin Calcium (Lipitor) 20 mg PO HS [facility] Last Admin: 05/18/18 22:50 Dose: 20 mg Budesonide (Pulmicort Respules) 0.5 mg IH [id number] [facility] Last Admin: 05/18/18 19:23 Dose: 0.5 mg Carvedilol (Coreg) 12.5 mg PO BID [facility] Last Admin: 05/18/18 17:10 Dose: 12.5 mg Clonidine HCl (Catapres) 0.2 mg PO BID [facility] Last Admin: 05/18/18 17:15 Dose: 0.2 mg Dextrose (Dextrose 50% Inj) 0 ml IV STAT PRN; Protocol PRN Reason: Hypoglycemia Protocol Docusate Sodium (Colace) 100 mg PO TID [facility] Last Admin: 05/18/18 17:15 Dose: 100 mg Ferrous Sulfate (Feosol Liq) 300 mg PO TID [facility] Last Admin: 05/18/18 17:09 Dose: 300 mg Furosemide (Lasix) 40 mg IVP Q12 [facility] Last Admin: 05/18/18 22:49 Dose: 40 mg Glipizide (Glucotrol) 5 mg PO ACB [facility] Last Admin: 05/18/18 07:49 Dose: 5 mg Guaifenesin (Robitussin) 100 mg PO Q4H PRN PRN Reason: Cough Heparin Sodium (Porcine) (Heparin) 5,000 units SC Q8 [facility] PRN Reason: Protocol Last Admin: 05/19/18 06:21 Dose: 5,000 units Vancomycin HCl (Vancomycin 1gm) 1 gm in 250 mls @ 167 mls/hr IVPB DAILY [facility] PRN Reason: Protocol Last Admin: 05/18/18 09:59 Dose: 167 mls/hr Meropenem (Merrem Iv 1 Gm Premix) 50 mls @ 100 mls/hr IVPB Q8 [facility] PRN Reason: Protocol Stop: 05/25/18 19:01 Last Admin: 05/19/18 06:20 Dose: 100 mls/hr Milrinone Lactate/Dextrose (Primacor 20mg/100ml D5w) 100 mls @ 17.146 mls/hr IV .Q5H50M PRN; Protocol; 0.375 MCG/KG/MIN PRN Reason: TITRATE PER MD ORDER Last Admin: 05/19/18 04:52 Dose: 0.375 mcg/kg/min, 17.146 mls/hr Insulin Human Regular (Humulin R) 0 units SC ACHS [facility] PRN Reason: Protocol Last Admin: 05/18/18 22:00 Dose: Not Given Ipratropium [place] (Atrovent) 0.5 mg IH [id number] [facility] Last Admin: 05/19/18 01:27 Dose: 0.5 mg Lisinopril (Zestril) 2.5 mg PO DAILY [facility] Last Admin: 05/18/18 10:33 Dose: 2.5 mg Methylprednisolone (Solu-Medrol) 40 mg IVP DAILY [facility] Ondansetron HCl (Zofran Tab) 4 mg PO Q8H PRN PRN Reason: Nausea/Vomiting Pantoprazole Sodium (Protonix Ec Tab) 40 mg PO DAILY [facility] Last Admin: 05/18/18 09:59 Dose: 40 mg Polyethylene Glycol (Miralax) 17 gm PO DAILY [facility] Last Admin: 05/18/18 09:59 Dose: 17 gm Spironolactone (Aldactone) 25 mg PO DAILY [facility] Last Admin: 05/18/18 10:00 Dose: 25 mg - Labs Labs: 05/19/18 05:45 05/18/18 06:15 PT 21.4 SECONDS (9.4-12.5) H 05/09/18 17:00 INR 1.85 05/09/18 17:00 APTT 30.9 Seconds (25.1-36.5) 05/09/18 17:00 Attending/Attestation - Attestation I have personally seen and examined this patient.: Yes I have fully participated in the care of the patient.: Yes I have reviewed all pertinent clinical information, including history, physical exam and plan: Yes Notes (Text): Patient seen and examined by me at 10AM with resident 05/18/18. Case including HPI, physical exam, and assessment and plan discussed with resident. Agree with above with following additions/corrections. Patient is a 52 year old male with past medical history significant for COPD, CAD, CHF, DM2, HTN, hperlipidemia, lumbar radiculopathy, and gout that presented to the emergency room with shortness of breath. Patient states he is feeling ok. Sitting up in chair and does not feel comfortable sitting in chair. Patient states he does not feel short of breath on the nasal cannula. Did use BiPAP all night. Denies any chest pain or palpitations. No headache or dizziness. No fevers or chills. No nausea, vomiting , or abdominal pain. No dysuria. Patient is coughing up phelgm. Physical exam: Gen: Awake and alert sitting up in chair in no acute distress HEENT: Normocephalic, atraumatic. Extraocular muscles intact, pupils equal reactive. No scleral icterus. Oropharynx is pink and moist. Neck is supple. Cardiovascular: Normal rhythm. Normal S1, S2. No murmurs, rubs, or gallops appreciated Pulmonary: Respiratory effort improved. Still with mild use of accessory muscles. Decreased breath sounds. No rhonchi, rales, or wheezing appreciated today. Gastrointestinal: Soft, nontender, nondistended. Globular abdomen. Positive bowel sounds all 4 quadrants, no guarding. Musculoskeletal: Moves all extremities. No calf tenderness. Positive lower extremity pitting edema Central nervous system: AAO x 3. Dermatologic: Skin warm and dry, bilateral lower extremity chronic stasis color changes. Assessment and plan: Patient is a 52 year old male with past medical history significant for COPD, CAD, CHF, DM2, HTN, hperlipidemia, lumbar radiculopathy, and gout that presented to the emergency room with shortness of breath. 1. Acute respiratory failure. CO2 narcosis. Worsened today as patient did not use BIPAP as instructed. CO2 on ABG now 73. Patient again encouraged to use BiPAP as instructed. Importance of compliance discussed with the patient. 2. Complete opacification of left lung on chest xray. Chest x-ray today per radiologist shows complete opacification of left lung; vascular congestion is visible on the right as well as small right pleural effusions. Continue with Lasix 40 mg IV every 12 hours. Continue Aldactone. Continue to monitor ins and outs. Continue chest PT. Will likely need bronchoscopy. Chest CT 05/16/2018 per radiologist showed complete left lung collapse with volume loss secondary to endobronchial lesion versus secretions in the distal left mainstem bronchus; large right and small to moderate left pleural effusions; small amount of perihepatic and perisplenic ascites; diffuse anasarca with extensive abdominal body wall edema. 3. Healthcare acquired pneumonia. ID following, recommendations appreciated. Continue vancomycin and meropenem, day #3. Continue guaifenesin as needed. Continue nebulizer treatments. 4. Respiratory distress. Multifactorial. Likely secondary to acute on chronic systolic CHF exacerbation, COPD, and non compliance with medications, CO2 narcosis and left lung opacification, pleural effusions, and healthcare acquired pneumonia. Continue with milrinone drip. Continue Coreg, Lasix, Lisinopril, and Aldactone. Continue to monitor I's and O's. Continue to monitor daily weights. Cardiology following, recommendations appreciated 5. COPD exacerbation. Continue with BiPAP at bedtime and as needed during the day. Continue Solu-Medrol. Continue Brovana, Pulmicort, and nebulizer treatments. Continue O2 via nasal cannula. Pulmonary following, recommendations appreciated. 6. Medication noncompliance. Importance of compliance discussed with patient at length. Patient encouraged to use BIPAP. Palliative care consulted. Psychiatry following, recommendations appreciated. 7. HIV 1 antibody positive, HIV fourth generation positive, likely false positive. CD4 count 747. Viral load not detected. ID following, recommendations appreciated. 8. Abnormal urinalysis. ID following, recommendations appreciated. S/P antibiotic treatment. 9. CAD s/p stent placement. Patient non-compliant with medications and follow up with doctors. Contine Coreg, ASA, Lisinopril and Lipitor. 10. Hypertension. Continue Clonidine, lasix, Lisinopril, and Coreg. On milrinone drip 11. DM2. Continue insulin sliding scale and glipizide. Continue to monitor accuchecks. 12. Hyperlipidemia. Continue Lipitor 13. Chronic anemia. No signs of acute bleeding. H&H stable. Continue to monitor. Continue ferrous sulfate 14. Scrotal edema. Likely secondary to anasarca from decompensated CHF. Testicular ultrasound per radiologist shows diffuse scrotal wall edema, no drainable fluid collection, small bilateral hydroceles, no evidence for testicular torsion or mass. Urology following, recommendations appreciated. 15. GI/DVT prophylaxis. 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
[2018-05-18 14:37] LABS: ARTERIAL BLOOD GAS HCO3 38.3 mmol/L (21-28); ARTERIAL BLOOD GAS O2 CAPACITY 10.9 mL/dl (16-24); ARTERIAL BLOOD GAS O2 CONTENT 10.1 ML/dl (15-23); ARTERIAL BLOOD GAS O2 SAT 92.7 % (95-98); ARTERIAL BLOOD GAS PH 7.34 (7.35-7.45); ARTERIAL BLOOD GAS TCO2 40.5 mmol.L (22-28)
[2018-05-18 14:38] LABS: ARTERIAL BLOOD GAS PCO2 71 mm/Hg (35-45)
--- NOTE | 2018-05-18 17:01 | CP.CCUPN ---
<Monet Stewart - Last Filed: 05/18/18 16:58> CCU Subjective - Physician Review Events Since Last Encounter (Free Text): 05/18/18 9:30 Patient seen and examined at bedside. Patient's bipap settings overnight provided less ventilation. Patient awake, alert, but has periods of forgetfullness likely from CO2 narcosis. States that his cough is coming up with respiratory treatments. Denies fevers, chills, nausea, vomiting, abdominal pain, leg swelling. Critical Care Time Spent (in minutes): 60 CCU Objective - Vital Signs / Intake & Output Vital Signs (Last 4 hours): Vital Signs Pulse 05/18/18 13:30 100 H Intake and Output (Last 8hrs): Intake & Output 05/18/18 05/18/18 05/18/18 06:59 14:59 22:59 Intake Total 605 100 100 Output Total 800 Balance -195 100 100 Weight 336 lb 3.2 oz Intake: IV 305 100 100 Right Hand 205 Oral 300 Output: Urine 800 Urethral (Lugo) 800 Other: # Bowel Movements 0 - Physical Exam Head: Positive for: Atraumatic, Normocephalic Pupils: Positive for: PERRL Extroacular Muscles: Positive for: EOMI Conjunctiva: Positive for: Normal Mouth: Positive for: Moist Mucous Membranes Neck: Positive for: Normal Range of Motion Respiratory/Chest: Positive for: Decreased Breath Sounds (on right side. Mild lung sounds on left upper lobes auscultated.), Other (No lung sounds on left side.). Negative for: Clear to Auscultation, Respiratory Distress, Accessory Muscle Use, Retracting, Rhonchi, Tachypneic Cardiovascular: Positive for: Regular Rate and Rhythm, Normal S1, S2. Negative for: Murmurs Abdomen: Positive for: Normal Bowel Sounds. Negative for: Tenderness, Peritoneal Signs, Rebound, Guarding Back: Positive for: Normal Inspection Upper Extremity: Positive for: NORMAL PULSES. Negative for: Cyanosis Lower Extremity: Positive for: Other (chronic venous stasis changes). Negative for: Edema, CALF TENDERNESS Neurological: Positive for: GCS=15, CN II-XII Intact, Speech Normal Skin: Positive for: Dry. Negative for: Rashes Psychiatric: Positive for: Alert, Oriented x 3 - Medications Active Medications: Active Medications Generic Name Dose Route Start Last Admin Trade Name Freq PRN Reason Stop Dose Admin Albuterol/Ipratropium 3 ml 05/16/18 16:39 Duoneb 3 Mg/0.5 Mg (3 Ml) Ud IH Q2H PRN Shortness of Breath Arformoterol Tartrate 15 mcg 05/11/18 20:00 05/18/18 07:18 Brovana IH 15 mcg [id number] ED Administration Aspirin 81 mg 05/10/18 10:00 05/18/18 10:00 Aspirin Chewable PO 81 mg DAILY ED Administration Atorvastatin Calcium 20 mg 05/15/18 22:00 05/17/18 21:52 Lipitor PO 20 mg HS ED Administration Budesonide 0.5 mg 05/11/18 20:00 05/18/18 07:18 Pulmicort Respules IH 0.5 mg [id number] ED Administration Carvedilol 12.5 mg 05/12/18 11:15 05/18/18 10:00 Coreg PO 12.5 mg BID ED Administration Clonidine HCl 0.2 mg 05/13/18 10:45 05/18/18 09:58 Catapres PO 0.2 mg BID ED Administration Dextrose 0 ml 05/09/18 20:21 Dextrose 50% Inj IV STAT PRN Hypoglycemia Protocol Protocol Docusate Sodium 100 mg 05/12/18 18:00 05/18/18 13:21 Colace PO 100 mg TID ED Administration Ferrous Sulfate 300 mg 05/12/18 18:00 05/18/18 15:39 Feosol Liq PO Not Given TID ED Furosemide 40 mg 05/16/18 12:15 05/18/18 10:01 Lasix IVP 40 mg Q12 ED Administration Glipizide 5 mg 05/12/18 17:45 05/18/18 07:49 Glucotrol PO 5 mg ACB ED Administration Guaifenesin 100 mg 05/16/18 17:28 Robitussin PO Q4H PRN Cough Heparin Sodium (Porcine) 5,000 units 05/14/18 14:00 05/18/18 13:22 Heparin SC 5,000 units Q8 ED Administration Protocol Vancomycin HCl 1 gm in 250 mls @ 167 mls/hr 05/16/18 17:30 05/18/18 09:59 Vancomycin 1gm IVPB 167 mls/hr DAILY ED Administration Protocol Meropenem 50 mls @ 100 mls/hr 05/16/18 19:00 05/18/18 13:22 Merrem Iv 1 Gm Premix IVPB 05/25/18 19:01 100 mls/hr Q8 ED Administration Protocol Milrinone Lactate/Dextrose 100 mls @ 17.146 mls/hr 05/17/18 08:47 05/18/18 16 :14 Primacor 20mg/100ml D5w IV 0.375 mcg/kg/min .Q5H50M PRN 17.146 mls/hr TITRATE PER MD ORDER Administration Protocol 0.375 MCG/KG/MIN Insulin Human Regular 0 units 05/11/18 11:30 05/18/18 11:30 Humulin R SC 1 unit ACHS ED Administration Protocol Ipratropium [place] 0.5 mg 05/17/18 20:00 05/18/18 13:29 Atrovent IH 0.5 mg [id number] ED Administration Lisinopril 2.5 mg 05/18/18 10:30 05/18/18 10:33 Zestril PO 2.5 mg DAILY ED Administration Methylprednisolone 60 mg 05/17/18 10:00 05/18/18 09:58 Solu-Medrol IVP 60 mg DAILY ED Administration Ondansetron HCl 4 mg 05/12/18 07:53 Zofran Tab PO Q8H PRN Nausea/Vomiting Pantoprazole Sodium 40 mg 05/12/18 10:00 05/18/18 09:59 Protonix Ec Tab PO 40 mg DAILY ED Administration Polyethylene Glycol 17 gm 05/12/18 17:45 05/18/18 09:59 Miralax PO 17 gm DAILY ED Administration Spironolactone 25 mg 05/12/18 11:15 05/18/18 10:00 Aldactone PO 25 mg DAILY ED Administration - Patient Studies Lab Studies: Microbiology Studies 05/16/18 22:40 Blood Culture - Preliminary Blood NO GROWTH AFTER 24 HOURS 05/16/18 22:40 Blood Culture - Preliminary Blood NO GROWTH AFTER 24 HOURS 05/17/18 09:15 Gram Stain - Final Sputum Lab Studies 05/18/18 05/18/18 05/18/18 Range/Units 14:25 06:30 06:15 WBC (4.5-11.0) 10^3/ul RBC (3.5-6.1) 10^6/uL Hgb (14.0-18.0) g/dL Hct (42.0-52.0) % MCV (80.0-105.0) fl MCH (25.0-35.0) pg MCHC (31.0-37.0) g/dl RDW (11.5-14.5) % Plt Count (120.0-450.0) 10^3/uL MPV (7.0-11.0) fl Gran % (50.0-68.0) % Lymph % (Auto) (22.0-35.0) % [place] % (Auto) (1.0-6.0) % Eos % (Auto) (1.5-5.0) % Baso % (Auto) (0.0-3.0) % Gran # (1.4-6.5) Lymph # (Auto) (1.2-3.4) [place] # (Auto) (0.1-0.6) Eos # (Auto) (0.0-0.7) Baso # (Auto) (0.0-2.0) K/mm3 pCO2 71 H* 73 H* (35-45) mm/Hg pO2 59.0 L 57.0 L (80-100) mm/Hg HCO3 38.3 H 35.1 H (21-28) mmol/L ABG pH 7.34 L 7.29 L (7.35-7.45) ABG Total CO2 40.5 H 37.3 H (22-28) mmol.L ABG O2 Saturation 92.7 L 89.3 L (95-98) % ABG O2 Content 10.1 L 9.9 L (15-23) ML/dl ABG Base Excess 11.0 H 7.3 H (-2.0-3.0) mmol/L ABG Hemoglobin 8.0 L 8.1 L (11.7-17.4) g/dL ABG Carboxyhemoglobin 2.9 H 2.5 H (0.5-1.5) % POC ABG HHb (Measured) 7.0 H 10.3 H (0-5) % ABG Methemoglobin 0.9 0.7 (0.0-3.0) % ABG O2 Capacity 10.9 L 11.1 L (16-24) mL/dl Hgb O2 Saturation 89.1 L 86.4 L (95.0-98.0) % FiO2 40.0 40.0 % Sodium 147 (132-148) mmol/L Potassium 4.3 (3.6-5.0) mmol/L Chloride 101 (98-107) mmol/L Carbon Dioxide 37 H (21-33) mmol/L Anion Gap 12 (10-20) BUN 53 H (7-21) mg/dL Creatinine 1.1 (0.8-1.5) mg/dl Est GFR ( Amer) > 60 Est GFR (Non-Af Amer) > 60 POC Glucose (mg/dL) (65-110) mg/dL Random Glucose 151 H (70-110) mg/dL Calcium 8.7 (8.4-10.5) mg/dL Phosphorus 4.0 (2.5-4.5) mg/dL Magnesium 2.1 (1.7-2.2) mg/dL Total Bilirubin 0.6 (0.2-1.3) mg/dL AST 27 (17-59) U/L ALT 24 (7-56) U/L Alkaline Phosphatase 260 H (38-126) U/L Total Protein 6.5 (5.8-8.3) g/dL Albumin 3.2 (3.0-4.8) g/dL Globulin 3.3 gm/dL Albumin/Globulin Ratio 1.0 L (1.1-1.8) 05/18/18 05/17/18 05/17/18 Range/Units 06:15 23:50 22:22 WBC 11.6 H D (4.5-11.0) 10^3/ul RBC 4.27 (3.5-6.1) 10^6/uL Hgb 8.5 L (14.0-18.0) g/dL Hct 32.6 L (42.0-52.0) % MCV 76.3 L (80.0-105.0) fl MCH 19.9 L (25.0-35.0) pg MCHC 26.1 L (31.0-37.0) g/dl RDW 24.4 H (11.5-14.5) % Plt Count 219 (120.0-450.0) 10^3/uL MPV 8.8 (7.0-11.0) fl Gran % 56.7 (50.0-68.0) % Lymph % (Auto) 27.8 (22.0-35.0) % [place] % (Auto) 15.1 H (1.0-6.0) % Eos % (Auto) 0.3 L (1.5-5.0) % Baso % (Auto) 0.1 (0.0-3.0) % Gran # 6.60 H (1.4-6.5) Lymph # (Auto) 3.2 (1.2-3.4) [place] # (Auto) 1.8 H (0.1-0.6) Eos # (Auto) 0.0 (0.0-0.7) Baso # (Auto) 0.01 (0.0-2.0) K/mm3 pCO2 69 H (35-45) mm/Hg pO2 51.0 L (80-100) mm/Hg HCO3 36.4 H (21-28) mmol/L ABG pH 7.33 L (7.35-7.45) ABG Total CO2 38.5 H (22-28) mmol.L ABG O2 Saturation 87.7 L (95-98) % ABG O2 Content 9.3 L (15-23) ML/dl ABG Base Excess 9.2 H (-2.0-3.0) mmol/L ABG Hemoglobin 7.8 L (11.7-17.4) g/dL ABG Carboxyhemoglobin 2.9 H (0.5-1.5) % POC ABG HHb (Measured) 11.9 H (0-5) % ABG Methemoglobin 0.6 (0.0-3.0) % ABG O2 Capacity 10.6 L (16-24) mL/dl Hgb O2 Saturation 84.6 L (95.0-98.0) % FiO2 30.0 % Sodium (132-148) mmol/L Potassium (3.6-5.0) mmol/L Chloride (98-107) mmol/L Carbon Dioxide (21-33) mmol/L Anion Gap (10-20) BUN (7-21) mg/dL Creatinine (0.8-1.5) mg/dl Est GFR ( Amer) Est GFR (Non-Af Amer) POC Glucose (mg/dL) 198 H (65-110) mg/dL Random Glucose (70-110) mg/dL Calcium (8.4-10.5) mg/dL Phosphorus (2.5-4.5) mg/dL Magnesium (1.7-2.2) mg/dL Total Bilirubin (0.2-1.3) mg/dL AST (17-59) U/L ALT (7-56) U/L Alkaline Phosphatase (38-126) U/L Total Protein (5.8-8.3) g/dL Albumin (3.0-4.8) g/dL Globulin gm/dL Albumin/Globulin Ratio (1.1-1.8) Laboratory Results - last 24 hr 05/17/18 05/17/18 05/18/18 22:22 23:50 06:15 WBC 11.6 H D RBC 4.27 Hgb 8.5 L Hct 32.6 L MCV 76.3 L MCH 19.9 L MCHC 26.1 L RDW 24.4 H Plt Count 219 MPV 8.8 Gran % 56.7 Lymph % (Auto) 27.8 [place] % (Auto) 15.1 H Eos % (Auto) 0.3 L Baso % (Auto) 0.1 Gran # 6.60 H Lymph # (Auto) 3.2 [place] # (Auto) 1.8 H Eos # (Auto) 0.0 Baso # (Auto) 0.01 pCO2 69 H pO2 51.0 L HCO3 36.4 H ABG pH 7.33 L ABG Total CO2 38.5 H ABG O2 Saturation 87.7 L ABG O2 Content 9.3 L ABG Base Excess 9.2 H ABG Hemoglobin 7.8 L ABG Carboxyhemoglobin 2.9 H POC ABG HHb (Measured) 11.9 H ABG Methemoglobin 0.6 ABG O2 Capacity 10.6 L Hgb O2 Saturation 84.6 L FiO2 30.0 Sodium Potassium Chloride Carbon Dioxide Anion Gap BUN Creatinine Est GFR ( Amer) Est GFR (Non-Af Amer) POC Glucose (mg/dL) 198 H Random Glucose Calcium Phosphorus Magnesium Total Bilirubin AST ALT Alkaline Phosphatase Total Protein Albumin Globulin Albumin/Globulin Ratio 05/18/18 05/18/1818 06:15 06:30 14:25 WBC RBC Hgb Hct MCV MCH MCHC RDW Plt Count MPV Gran % Lymph % (Auto) [place] % (Auto) Eos % (Auto) Baso % (Auto) Gran # Lymph # (Auto) [place] # (Auto) Eos # (Auto) Baso # (Auto) pCO2 73 H* 71 H* pO2 57.0 L 59.0 L HCO3 35.1 H 38.3 H ABG pH 7.29 L 7.34 L ABG Total CO2 37.3 H 40.5 H ABG O2 Saturation 89.3 L 92.7 L ABG O2 Content 9.9 L 10.1 L ABG Base Excess 7.3 H 11.0 H ABG Hemoglobin 8.1 L 8.0 L ABG Carboxyhemoglobin 2.5 H 2.9 H POC ABG HHb (Measured) 10.3 H 7.0 H ABG Methemoglobin 0.7 0.9 ABG O2 Capacity 11.1 L 10.9 L Hgb O2 Saturation 86.4 L 89.1 L FiO2 40.0 40.0 Sodium 147 Potassium 4.3 Chloride 101 Carbon Dioxide 37 H Anion Gap 12 BUN 53 H Creatinine 1.1 Est GFR ( Amer) > 60 Est GFR (Non-Af Amer) > 60 POC Glucose (mg/dL) Random Glucose 151 H Calcium 8.7 Phosphorus 4.0 Magnesium 2.1 Total Bilirubin 0.6 AST 27 ALT 24 Alkaline Phosphatase 260 H Total Protein 6.5 Albumin 3.2 Globulin 3.3 Albumin/Globulin Ratio 1.0 L Fingerstick Blood Sugar Results: 193 Review of Systems - Review of Systems All systems: reviewed and no additional remarkable complaints except Review of Systems: as per subjective portion of note Critical Care Progress Note - Nutrition Nutrition: Nutrition Category Date Time Status Dysphagia/Modified Consistency Diet [DIET] Diets 05/10/18 Lunch Ordered Assessment/Plan - Assessment and Plan (Free Text) Assessment: 52 year old male with PMH COPD on 2L home O2, DM2, CHF with EF 39.1% (04/2018), CAD with stents, HTN, HLD, gout, admitted to ICU for hypercapneic respiratory failure 2/2 likely COPD exacerbation. On imaging, patient found to be have complete opacification of left lung, bilateral pleural effusion R>L, and perihilar right sided infiltrate. Patient receiving aggressive chest physiotherapy, postural drainage, mucomyst, bronchodilators treatment, hypertonic saline inhalation, steroids. CXR mildly improving this AM: Neuro: AAOx3 today, may become lethargic intermittently 2/2 CO2 retention. Cont to monitor. CV: -maintain MAP>65 -ECHO 04/2018: EF 39.1%. mild concentric LVH, systolic function moderately impaired, septal hypokinesis, mild MR, moderate TR, mild pulmonary HTN, aortic root mildly enlarged -Hx of CHF with EF 39%, c/w BB, lasix, aldactone. will start home HANS-i. -Cardio on consult, Dr. Syed -BNP elevated this admission. CHF exacerbation. C/w strict I&Os, daily weights. -C/w Milrinone drip -lasix 40 IV q12 -diuresing well, Output 2000 ml. -put on 1L fluid restriction diet -Cont to monitor. Pulm: Will keep patient on bipap, NC when eating. Changed bipap settings to increase ventilation, ipap 18, epap 5. -duonebs ed and prn, solumedrol 40mg IV daily, short and long acting bronchodilators, ICS -CXR this AM shows improving left atelectasis. -Aggressive chest physiotherapy, postural drainage, mucomyst, hypertonic saline inhalation -On HCAP coverage Merrem and Vanco -closely monitor GI: Continue with Protonix. heart healthy diet, fluid restriction. Renal : Replace lytes, maintain euvolemia. Continue to monitor. ID: -CXR shows new right perihilar infiltrate. -afebrile, mild leukocytosis 11.6 -C/w HCAP coverage - Vanco, Merrem -f/u procal -ID on board. f/u recs. Endo: Continue with ISS low. Maintain euglycemia. Heme: Hgb 8.5 (at baseline) - iron deficiency anemia. On feosol. Stable, Cont to monitor. DVT ppx - SQ heparin GI ppx - Protonix Case seen and discussed with attending, Dr Alberto Mcintyre. <Alberto Mcintyre - Last Filed: 05/18/18 17:59> CCU Subjective - Physician Review Critical Care Time Spent (in minutes): 0 CCU Objective - Vital Signs / Intake & Output Vital Signs (Last 4 hours): Vital Signs Pulse BP 05/18/18 17:15 102 H 146/93 H 05/18/18 17:10 105 H 146/93 H Intake and Output (Last 8hrs): Intake & Output 05/18/18 05/18/18 05/18/18 06:59 14:59 22:59 Intake Total 605 100 100 Output Total 800 Balance -195 100 100 Weight 336 lb 3.2 oz Intake: IV 305 100 100 Right Hand 205 Oral 300 Output: Urine 800 Urethral ([place]ugo) 800 Other: # Bowel Movements 0 - Medications Active Medications: Active Medications Generic Name Dose Route Start Last Admin Trade Name Freq PRN Reason Stop Dose Admin Albuterol/Ipratropium 3 ml 05/16/18 16:39 Duoneb 3 Mg/0.5 Mg (3 Ml) Ud IH Q2H PRN Shortness of Breath Arformoterol Tartrate 15 mcg 05/11/18 20:00 05/18/18 07:18 Brovana IH 15 mcg [id number] ED Administration Aspirin 81 mg 05/10/18 10:00 05/18/18 10:00 Aspirin Chewable PO 81 mg DAILY ED Administration Atorvastatin Calcium 20 mg 05/15/18 22:00 05/17/18 21:52 Lipitor PO 20 mg HS DE Administration Budesonide 0.5 mg 05/11/18 20:00 05/18/18 07:18 Pulmicort Respules IH 0.5 mg [id number] ED Administration Carvedilol 12.5 mg 05/12/18 11:15 05/18/18 17:10 Coreg PO 12.5 mg BID ED Administration Clonidine HCl 0.2 mg 05/13/18 10:45 05/18/18 17:15 Catapres PO 0.2 mg BID ED Administration Dextrose 0 ml 05/09/18 20:21 Dextrose 50% Inj IV STAT PRN Hypoglycemia Protocol Protocol Docusate Sodium 100 mg 05/12/18 18:00 05/18/18 17:15 Colace PO 100 mg TID ED Administration Ferrous Sulfate 300 mg 05/12/18 18:00 05/18/18 17:09 Feosol Liq PO 300 mg TID ED Administration Furosemide 40 mg 05/16/18 12:15 05/18/18 10:01 Lasix IVP 40 mg Q12 ED Administration Glipizide 5 mg 05/12/18 17:45 05/18/18 07:49 Glucotrol PO 5 mg ACB ED Administration Guaifenesin 100 mg 05/16/18 17:28 Robitussin PO Q4H PRN Cough Heparin Sodium (Porcine) 5,000 units 05/14/18 14:00 05/18/18 13:22 Heparin SC 5,000 units Q8 ED Administration Protocol Vancomycin HCl 1 gm in 250 mls @ 167 mls/hr 05/16/18 17:30 05/18/18 09:59 Vancomycin 1gm IVPB 167 mls/hr DAILY ED Administration Protocol Meropenem 50 mls @ 100 mls/hr 05/16/18 19:00 05/18/18 13:22 Merrem Iv 1 Gm Premix IVPB 05/25/18 19:01 100 mls/hr Q8 ED Administration Protocol Milrinone Lactate/Dextrose 100 mls @ 17.146 mls/hr 05/17/18 08:47 05/18/18 16 :14 Primacor 20mg/100ml D5w IV 0.375 mcg/kg/min .Q5H50M PRN 17.146 mls/hr TITRATE PER MD ORDER Administration Protocol 0.375 MCG/KG/MIN Insulin Human Regular 0 units 05/11/18 11:30 05/18/18 17:09 Humulin R SC 2 unit ACHS ED Administration Protocol Ipratropium [place] 0.5 mg 05/17/18 20:00 05/18/18 13:29 Atrovent IH 0.5 mg [id number] ED Administration Lisinopril 2.5 mg 05/18/18 10:30 05/18/18 10:33 Zestril PO 2.5 mg DAILY ED Administration Methylprednisolone 40 mg 05/19/18 10:00 Solu-Medrol IVP DAILY ED Ondansetron HCl 4 mg 05/12/18 07:53 Zofran Tab PO Q8H PRN Nausea/Vomiting Pantoprazole Sodium 40 mg 05/12/18 10:00 05/18/18 09:59 Protonix Ec Tab PO 40 mg DAILY ED Administration Polyethylene Glycol 17 gm 05/12/18 17:45 05/18/18 09:59 Miralax PO 17 gm DAILY ED Administration Spironolactone 25 mg 05/12/18 11:15 05/18/18 10:00 Aldactone PO 25 mg DAILY ED Administration - Patient Studies Lab Studies: Microbiology Studies 05/16/18 22:40 Blood Culture - Preliminary Blood NO GROWTH AFTER 24 HOURS 05/16/18 22:40 Blood Culture - Preliminary Blood NO GROWTH AFTER 24 HOURS Lab Studies 05/18/18 05/18/18 05/18/18 Range/Units 14:25 06:30 06:15 WBC (4.5-11.0) 10^3/ul RBC (3.5-6.1) 10^6/uL Hgb (14.0-18.0) g/dL Hct (42.0-52.0) % MCV (80.0-105.0) fl MCH (25.0-35.0) pg MCHC (31.0-37.0) g/dl RDW (11.5-14.5) % Plt Count (120.0-450.0) 10^3/uL MPV (7.0-11.0) fl Gran % (50.0-68.0) % Lymph % (Auto) (22.0-35.0) % [place] % (Auto) (1.0-6.0) % Eos % (Auto) (1.5-5.0) % Baso % (Auto) (0.0-3.0) % Gran # (1.4-6.5) Lymph # (Auto) (1.2-3.4) [place] # (Auto) (0.1-0.6) Eos # (Auto) (0.0-0.7) Baso # (Auto) (0.0-2.0) K/mm3 pCO2 71 H* 73 H* (35-45) mm/Hg pO2 59.0 L 57.0 L (80-100) mm/Hg HCO3 38.3 H 35.1 H (21-28) mmol/L ABG pH 7.34 L 7.29 L (7.35-7.45) ABG Total CO2 40.5 H 37.3 H (22-28) mmol.L ABG O2 Saturation 92.7 L 89.3 L (95-98) % ABG O2 Content 10.1 L 9.9 L (15-23) ML/dl ABG Base Excess 11.0 H 7.3 H (-2.0-3.0) mmol/L ABG Hemoglobin 8.0 L 8.1 L (11.7-17.4) g/dL ABG Carboxyhemoglobin 2.9 H 2.5 H (0.5-1.5) % POC ABG HHb (Measured) 7.0 H 10.3 H (0-5) % ABG Methemoglobin 0.9 0.7 (0.0-3.0) % ABG O2 Capacity 10.9 L 11.1 L (16-24) mL/dl Hgb O2 Saturation 89.1 L 86.4 L (95.0-98.0) % FiO2 40.0 40.0 % Sodium 147 (132-148) mmol/L Potassium 4.3 (3.6-5.0) mmol/L Chloride 101 (98-107) mmol/L Carbon Dioxide 37 H (21-33) mmol/L Anion Gap 12 (10-20) BUN 53 H (7-21) mg/dL Creatinine 1.1 (0.8-1.5) mg/dl Est GFR ( Amer) > 60 Est GFR (Non-Af Amer) > 60 POC Glucose (mg/dL) (65-110) mg/dL Random Glucose 151 H (70-110) mg/dL Calcium 8.7 (8.4-10.5) mg/dL Phosphorus 4.0 (2.5-4.5) mg/dL Magnesium 2.1 (1.7-2.2) mg/dL Total Bilirubin 0.6 (0.2-1.3) mg/dL AST 27 (17-59) U/L ALT 24 (7-56) U/L Alkaline Phosphatase 260 H (38-126) U/L Total Protein 6.5 (5.8-8.3) g/dL Albumin 3.2 (3.0-4.8) g/dL Globulin 3.3 gm/dL Albumin/Globulin Ratio 1.0 L (1.1-1.8) 05/18/18 05/17/18 05/17/18 Range/Units 06:15 23:50 22:22 WBC 11.6 H D (4.5-11.0) 10^3/ul RBC 4.27 (3.5-6.1) 10^6/uL Hgb 8.5 L (14.0-18.0) g/dL Hct 32.6 L (42.0-52.0) % MCV 76.3 L (80.0-105.0) fl MCH 19.9 L (25.0-35.0) pg MCHC 26.1 L (31.0-37.0) g/dl RDW 24.4 H (11.5-14.5) % Plt Count 219 (120.0-450.0) 10^3/uL MPV 8.8 (7.0-11.0) fl Gran % 56.7 (50.0-68.0) % Lymph % (Auto) 27.8 (22.0-35.0) % [place] % (Auto) 15.1 H (1.0-6.0) % Eos % (Auto) 0.3 L (1.5-5.0) % Baso % (Auto) 0.1 (0.0-3.0) % Gran # 6.60 H (1.4-6.5) Lymph # (Auto) 3.2 (1.2-3.4) [place] # (Auto) 1.8 H (0.1-0.6) Eos # (Auto) 0.0 (0.0-0.7) Baso # (Auto) 0.01 (0.0-2.0) K/mm3 pCO2 69 H (35-45) mm/Hg pO2 51.0 L (80-100) mm/Hg HCO3 36.4 H (21-28) mmol/L ABG pH 7.33 L (7.35-7.45) ABG Total CO2 38.5 H (22-28) mmol.L ABG O2 Saturation 87.7 L (95-98) % ABG O2 Content 9.3 L (15-23) ML/dl ABG Base Excess 9.2 H (-2.0-3.0) mmol/L ABG Hemoglobin 7.8 L (11.7-17.4) g/dL ABG Carboxyhemoglobin 2.9 H (0.5-1.5) % POC ABG HHb (Measured) 11.9 H (0-5) % ABG Methemoglobin 0.6 (0.0-3.0) % ABG O2 Capacity 10.6 L (16-24) mL/dl Hgb O2 Saturation 84.6 L (95.0-98.0) % FiO2 30.0 % Sodium (132-148) mmol/L Potassium (3.6-5.0) mmol/L Chloride (98-107) mmol/L Carbon Dioxide (21-33) mmol/L Anion Gap (10-20) BUN (7-21) mg/dL Creatinine (0.8-1.5) mg/dl Est GFR ( Amer) Est GFR (Non-Af Amer) POC Glucose (mg/dL) 198 H (65-110) mg/dL Random Glucose (70-110) mg/dL Calcium (8.4-10.5) mg/dL Phosphorus (2.5-4.5) mg/dL Magnesium (1.7-2.2) mg/dL Total Bilirubin (0.2-1.3) mg/dL AST (17-59) U/L ALT (7-56) U/L Alkaline Phosphatase (38-126) U/L Total Protein (5.8-8.3) g/dL Albumin (3.0-4.8) g/dL Globulin gm/dL Albumin/Globulin Ratio (1.1-1.8) Laboratory Results - last 24 hr 05/17/18 05/17/18 05/18/18 22:22 23:50 06:15 WBC 11.6 H D RBC 4.27 Hgb 8.5 L Hct 32.6 L MCV 76.3 L MCH 19.9 L MCHC 26.1 L RDW 24.4 H Plt Count 219 MPV 8.8 Gran % 56.7 Lymph % (Auto) 27.8 [place] % (Auto) 15.1 H Eos % (Auto) 0.3 L Baso % (Auto) 0.1 Gran # 6.60 H Lymph # (Auto) 3.2 [place] # (Auto) 1.8 H Eos # (Auto) 0.0 Baso # (Auto) 0.01 pCO2 69 H pO2 51.0 L HCO3 36.4 H ABG pH 7.33 L ABG Total CO2 38.5 H ABG O2 Saturation 87.7 L ABG O2 Content 9.3 L ABG Base Excess 9.2 H ABG Hemoglobin 7.8 L ABG Carboxyhemoglobin 2.9 H POC ABG HHb (Measured) 11.9 H ABG Methemoglobin 0.6 ABG O2 Capacity 10.6 L Hgb O2 Saturation 84.6 L FiO2 30.0 Sodium Potassium Chloride Carbon Dioxide Anion Gap BUN Creatinine Est GFR ( Amer) Est GFR (Non-Af Amer) POC Glucose (mg/dL) 198 H Random Glucose Calcium Phosphorus Magnesium Total Bilirubin AST ALT Alkaline Phosphatase Total Protein Albumin Globulin Albumin/Globulin Ratio 05/18/18 05/18/18 05/18/18 06:15 06:30 14:25 WBC RBC Hgb Hct MCV MCH MCHC RDW Plt Count MPV Gran % Lymph % (Auto) [place] % (Auto) Eos % (Auto) Baso % (Auto) Gran # Lymph # (Auto) [place] # (Auto) Eos # (Auto) Baso # (Auto) pCO2 73 H* 71 H* pO2 57.0 L 59.0 L HCO3 35.1 H 38.3 H ABG pH 7.29 L 7.34 L ABG Total CO2 37.3 H 40.5 H ABG O2 Saturation 89.3 L 92.7 L ABG O2 Content 9.9 L 10.1 L ABG Base Excess 7.3 H 11.0 H ABG Hemoglobin 8.1 L 8.0 L ABG Carboxyhemoglobin 2.5 H 2.9 H POC ABG HHb (Measured) 10.3 H 7.0 H ABG Methemoglobin 0.7 0.9 ABG O2 Capacity 11.1 L 10.9 L Hgb O2 Saturation 86.4 L 89.1 L FiO2 40.0 40.0 Sodium 147 Potassium 4.3 Chloride 101 Carbon Dioxide 37 H Anion Gap 12 BUN 53 H Creatinine 1.1 Est GFR ( Amer) > 60 Est GFR (Non-Af Amer) > 60 POC Glucose (mg/dL) Random Glucose 151 H Calcium 8.7 Phosphorus 4.0 Magnesium 2.1 Total Bilirubin 0.6 AST 27 ALT 24 Alkaline Phosphatase 260 H Total Protein 6.5 Albumin 3.2 Globulin 3.3 Albumin/Globulin Ratio 1.0 L Critical Care Progress Note - Nutrition Nutrition: Nutrition Category Date Time Status Dysphagia/Modified Consistency Diet [DIET] Diets 05/10/18 Lunch Ordered Addendum Addendum: 05/18/18 17:58 ICU Attending Addendum: Patient seen and examined. Case reviewed on round with housestaff. Agree with resident note above with the following additions/exceptions: 52 M with hx of COPD on 2L home O2, DM2, CHF with EF 39 (04/2018), CAD with stents, HTN returned to the ICU wednesday 05/16 with HCRF. Overnight his Bipap settings changed to 10/5 which may be insufficient ventilation for him explaining his rise in CO2. Will place him on 16/5 and repeat ABG. CXR very slightly improved in left apex. Cont aggressive chest PT, deep suction , OOB to chair, mucomyst, nebs, inh saline. Will cont to diurese him, using IV lasix 40. Rest of care as noted above. Alberto Mcintyre MD [employer] [facility] Critical care time : 35 mins
--- NOTE | 2018-05-18 17:40 | PN ---
Copied To: Beny Salgado MD Attending MD: Beny Salgado MD DATE: 05/18/2018 SUBJECTIVE: The patient is short of breath, on nasal O2. He denies any chest pain. PHYSICAL EXAMINATION: VITAL SIGNS: Blood pressure 137/85, heart rate 106, temperature 98, respiration 14. HEENT: Pale conjunctivae. CHEST: Absent breath sounds over the right hemithorax. HEART: S1, S2 regular and distant. ABDOMEN: Soft. EXTREMITIES: 1+ pitting edema. LABORATORY DATA: Hemoglobin and hematocrit 8.5 and 32.6, white count 11.6, platelet count 119,000. SMA-7: Sodium 147, potassium 4.3, chloride 101, CO2 of 37, glucose 151, BUN 53, creatinine 1.1. Blood cultures are negative after 5 days and 24 hours. ASSESSMENT: 1. Biventricular failure. 2. Pneumonia with complete opacification of the left lung. 3. Bilateral pleural effusion. 4. Anemia. 5. Obesity. RECOMMENDATIONS: Continue Aldactone 25 mg daily, aspirin 81 mg once a day, clonidine 0.2 mg twice a day, Coreg 12.5 mg twice a day, heparin 5000 units subcutaneously every 8 hours, Lasix 40 mg intravenously twice a day, Lipitor 20 mg once a day, meropenem 1 g intravenously every 8 hours, milrinone infusion, Solu-Medrol 60 mg intravenously daily, Zestril 10 mg daily, and vancomycin 1 g intravenously daily. Beny Salgado MD
[2018-05-19] MEDS: Ipratropium 0.02% Inhal Soln (0.5 mg/2.5 ml) UD IH SCH ×2 (01:27→20:48)
[2018-05-19] MEDS: Milrinone 20mg/100ml D5W 100 ML IV PRN ×3 (04:52→21:07)
[2018-05-19 05:20] LABS: ARTERIAL BLOOD GAS HEMOGLOBIN 7.3 g/dL (11.7-17.4); ARTERIAL BLOOD GAS O2 CAPACITY 10.1 mL/dl (16-24); ARTERIAL BLOOD GAS O2 CONTENT 9.6 ML/dl (15-23); ARTERIAL BLOOD GAS O2 SAT 95.1 % (95-98); ARTERIAL BLOOD GAS PCO2 58 mm/Hg (35-45); ARTERIAL BLOOD GAS PH 7.47 (7.35-7.45)
[2018-05-19 05:22] LABS: ARTERIAL BLOOD GAS HCO3 42.2 mmol/L (21-28)
[2018-05-19] MEDS: Meropenem IV 1 gm in NS 50 ML IVPB SCH ×3 (06:20→23:10)
[2018-05-19 06:50] LABS: BASO # 0.01 K/mm3 (0.0-2.0); BASO % 0.1 % (0.0-3.0); EOS # 0.1 (0.0-0.7); EOS % 0.8 % (1.5-5.0); GRAN # 5.56 (1.4-6.5); GRAN % 59.6 % (50.0-68.0); HEMOGLOBIN 7.9 g/dL (14.0-18.0); LYMPH # 2.4 (1.2-3.4); LYMPH % 25.6 % (22.0-35.0); MEAN CELL VOLUME 74.3 fl (80.0-105.0); MEAN CORPUSCULAR HEMOGLOBIN 20.1 pg (25.0-35.0); MEAN CORPUSCULAR HGB CONC 27.1 g/dl (31.0-37.0); MONO # 1.3 (0.1-0.6); MONO % 13.9 % (1.0-6.0); PLATELET COUNT 208 10^3/uL (120.0-450.0); RBC 3.93 10^6/uL (3.5-6.1); RED CELL DISTRIBUTION WIDTH 24.6 % (11.5-14.5); WHITE BLOOD COUNT 9.3 10^3/ul (4.5-11.0)
[2018-05-19] MEDS: Budesonide 0.5 mg/2 ml Inhal Susp UD IH SCH ×2 (07:22→20:45)
[2018-05-19] MEDS: Arformoterol 15 mcg/2 ml Inh Sol IH SCH ×2 (07:22→20:44)
[2018-05-19 07:23] LABS: ALB/GLOB RATIO 0.9 (1.1-1.8); ALBUMIN 2.9 g/dL (3.0-4.8); ALT/SGPT 30 U/L (7-56); AST/SGOT 35 U/L (17-59); BLOOD UREA NITROGEN 48 mg/dL (7-21); CALCIUM 8.7 mg/dL (8.4-10.5); GFR NON-AFRICAN AMERICAN > 60
--- NOTE | 2018-05-19 09:27 | PN ---
Copied To: Harris Todd MD Attending MD: Harris Todd MD DATE: 05/19/2018 SUBJECTIVE: The patient is in bed in no acute distress, nontoxic. Patient is in the ICU, bed #4. He is awake and alert. He has his BiPAP mask on and no fevers, no chill, uneventful night. PHYSICAL EXAMINATION: VITAL SIGNS: Temperature is 97, heart rate of 97, blood pressure is 117/50, respiratory rate is 22. HEENT: Unremarkable. NECK: Supple. LUNGS: Have decreased breath sounds. HEART: Normal S1, S2. ABDOMEN: Soft, nontender. No organomegaly, no rebound, no guarding, no masses. LABORATORY EXAMINATION: Reveals a white count of 9.3, hemoglobin of 7, platelets of 208. Chemistries reveals a BUN of 48, creatinine of 1, alk phos is 262. Procalcitonin is 0.09. Urinalysis is noted and CD-4 count is noted. PCR is noted. Microbiology reveals blood cultures are negative. The nares MRSA is negative and sputum culture is pending. ASSESSMENT AND PLAN: A 52-year-old male who was seen earlier today in the Intensive Care Unit 129, bed 4 and with morbid obesity, body mass index of 43, hypoxia, hypercapnia, respiratory failure, acute decompensated congestive heart failure, chronic obstructive lung disease and good T-cells, undetectable human immunodeficiency virus, most likely a false positive with a positive Britney and on now with sepsis with healthcare-associated pneumonia, day #4 of vancomycin and meropenem, negative procalcitonin. Repeat chest x-ray, as from yesterday is reviewed, a complete opacification. We will discontinue the vancomycin and complete with 4-7 days of meropenem. The patient is also on Solu-Medrol. We will follow closely with you. Day #4 of meropenem, with complete 4-7 days. Harris Todd MD
[2018-05-19] MEDS: Insulin Regular 1 UNITS/0.01 ML ML SC SCH ×4 (09:31→23:13)
[2018-05-19] MEDS: Pantoprazole 40 mg EC Tab PO SCH (09:42)
[2018-05-19] MEDS: Ferrous Sulfate 300 mg/5 mL Liq UD PO SCH ×3 (09:42→17:34)
[2018-05-19] MEDS: POLYETHYLENE GLYCOL 3350 17 GM/Dose PACKET PO SCH (09:43)
[2018-05-19] MEDS ORDERED: MethylPREDNISolone 40 mg Vial IVP SCH (10:00)
--- NOTE | 2018-05-19 10:39 | RAD ---
Date of service: 05/19/2018 HISTORY: atelectasis COMPARISON: 05/18/2018 FINDINGS: LUNGS: There is improvement in the left-sided opacification. There is no change in the right-sided perihilar infiltrate or vascular congestion PLEURA: No significant pleural effusion identified, no pneumothorax apparent. CARDIOVASCULAR: Moderate cardiomegaly OSSEOUS STRUCTURES: No significant abnormalities. VISUALIZED UPPER ABDOMEN: Normal. OTHER FINDINGS: None. IMPRESSION: There is improvement in the left-sided opacification. There is no change in the right-sided perihilar infiltrate or vascular congestion
--- NOTE | 2018-05-19 12:30 | CP.PCM.PN ---
<Rc Wong - Last Filed: 05/19/18 12:35> Subjective - Date & Time of Evaluation Date of Evaluation: 05/19/18 Time of Evaluation: 12:24 - Subjective Subjective: Rc Wong, PGY-1 Progress Note for Hospitalist Service Patient seen and examined at bedside in the ICU this morning. No acute events overnight. Patient was compliant with Bipap overnight and tolerated well. Admits to good appetite and slept well. Admits to some SOB and denies CP, abdominal pain, urinary complaints, back pain and headaches. Objective - Vital Signs/Intake and Output Vital Signs (last 24 hours): Temp Pulse Resp BP Pulse Ox 98.3 F 98 H 18 169/106 H 94 L 05/19/18 08:00 05/19/18 09:40 05/16/18 12:08 05/19/18 09:43 05/16/18 08:32 Intake and Output: 05/19/18 05/19/18 06:59 18:59 Intake Total 845 Output Total 2775 Balance -1930 - Medications Medications: Current Medications Albuterol/Ipratropium (Duoneb 3 Mg/0.5 Mg (3 Ml) Ud) 3 ml IH Q2H PRN PRN Reason: Shortness of Breath Arformoterol Tartrate (Brovana) 15 mcg IH [id number] [facility] Last Admin: 05/19/18 07:22 Dose: 15 mcg Aspirin (Aspirin Chewable) 81 mg PO DAILY [facility] Last Admin: 05/19/18 09:41 Dose: 81 mg Atorvastatin Calcium (Lipitor) 20 mg PO HS [facility] Last Admin: 05/18/18 22:50 Dose: 20 mg Budesonide (Pulmicort Respules) 0.5 mg IH [id number] [facility] Last Admin: 05/19/18 07:22 Dose: 0.5 mg Carvedilol (Coreg) 12.5 mg PO BID [facility] Last Admin: 05/18/18 17:10 Dose: 12.5 mg Clonidine HCl (Catapres) 0.2 mg PO BID [facility] Last Admin: 05/19/18 09:38 Dose: 0.2 mg Dextrose (Dextrose 50% Inj) 0 ml IV STAT PRN; Protocol PRN Reason: Hypoglycemia Protocol Docusate Sodium (Colace) 100 mg PO TID [facility] Last Admin: 05/19/18 09:42 Dose: 100 mg Ferrous Sulfate (Feosol Liq) 300 mg PO TID [facility] Last Admin: 05/19/18 09:42 Dose: 300 mg Furosemide (Lasix) 40 mg IVP Q12 [facility] Last Admin: 05/19/18 09:43 Dose: 40 mg Glipizide (Glucotrol) 5 mg PO ACB [facility] Last Admin: 05/19/18 09:42 Dose: 5 mg Guaifenesin (Robitussin) 100 mg PO Q4H PRN PRN Reason: Cough Heparin Sodium (Porcine) (Heparin) 5,000 units SC Q8 [facility] PRN Reason: Protocol Last Admin: 05/19/18 06:21 Dose: 5,000 units Meropenem (Merrem Iv 1 Gm Premix) 50 mls @ 100 mls/hr IVPB Q8 [facility] PRN Reason: Protocol Stop: 05/25/18 19:01 Last Admin: 05/19/18 06:20 Dose: 100 mls/hr Milrinone Lactate/Dextrose (Primacor 20mg/100ml D5w) 100 mls @ 17.146 mls/hr IV .Q5H50M PRN; Protocol; 0.375 MCG/KG/MIN PRN Reason: TITRATE PER MD ORDER Last Admin: 05/19/18 04:52 Dose: 0.375 mcg/kg/min, 17.146 mls/hr Insulin Human Regular (Humulin R) 0 units SC ACHS [facility] PRN Reason: Protocol Last Admin: 05/19/18 09:31 Dose: Not Given Ipratropium [place] (Atrovent) 0.5 mg IH [id number] [facility] Last Admin: 05/19/18 01:27 Dose: 0.5 mg Lisinopril (Zestril) 2.5 mg PO DAILY [facility] Last Admin: 05/19/18 09:40 Dose: 2.5 mg Methylprednisolone (Solu-Medrol) 40 mg IVP DAILY [facility] Last Admin: 05/19/18 09:38 Dose: 40 mg Ondansetron HCl (Zofran Tab) 4 mg PO Q8H PRN PRN Reason: Nausea/Vomiting Pantoprazole Sodium (Protonix Ec Tab) 40 mg PO DAILY [facility] Last Admin: 05/19/18 09:42 Dose: 40 mg Polyethylene Glycol (Miralax) 17 gm PO DAILY [facility] Last Admin: 05/19/18 09:43 Dose: 17 gm Spironolactone (Aldactone) 25 mg PO DAILY [facility] Last Admin: 05/19/18 09:43 Dose: 25 mg - Labs Labs: 05/19/18 05:45 05/19/18 05:45 PT 21.4 SECONDS (9.4-12.5) H 05/09/18 17:00 INR 1.85 05/09/18 17:00 APTT 30.9 Seconds (25.1-36.5) 05/09/18 17:00 - Head Exam Head Exam: ATRAUMATIC, NORMOCEPHALIC - Eye Exam Eye Exam: EOMI Pupil Exam: PERRL - ENT Exam ENT Exam: Normal Oropharynx - Respiratory Exam Additional comments: no respiratory distress, on bipap, expiratory wheezes appreciated B/L and much improved from yesterday - Cardiovascular Exam Cardiovascular Exam: REGULAR RHYTHM, +S1, +S2 - GI/Abdominal Exam GI & Abdominal Exam: Normal Bowel Sounds. absent: Firm, Guarding - Extremities Exam Extremities Exam: Normal Inspection. absent: Calf Tenderness Additional comments: dry peeling skin noted on lower extremities - Neurological Exam Neurological Exam: Alert, Awake - Skin Skin Exam: Dry, Warm Assessment and Plan - Assessment and Plan (Free Text) Assessment: This is a 52 year old male with PMH of CHF with last EF this month showing 39%, DM, COPD, CAD with stents, gout, HTN, and HLD presenting for management of acute hypercapnic respiratory failure 2/2 COPD exacerbation and acute on chronic systolic CHF. Patient compliant with bipap overnight with improved CO2 on ABG today. Plan: Acute hypercapnic respiratory failure 2/2 COPD exacerbation -CO2 on ABG today is 58 from 71 yesterday. CO2 narcosis improved but patient still is altered -continue with treatment of chest PT, mucomyst, bronchodilators and steroids -bronchoscopy will be deferred until after the weekend and medical treatment -CT chest showed complete left lung collapse with volume loss secondary to endobronchial lesion vs. secretins in the distal left mainstem bronchus. Large right and small to moderate left pleural effusions. Diffuse anasarca with extensive abdominal body wall edema -Currently being monitored in the ICU Acute on chronic systolic CHF -CXR today showed improvement in left sided opacification. There is no change in the right sided perihilar infiltrate or vascular congestion -continue with lasix 40mg IV q12 and aldactone 25mg -currently on milrinone drip -Echo on 05/10 showed mild concentric LVH, systolic function moderately impaired , septal hypokinesis, mild MR, moderate TR, mild pulmonary HTN, aortic root mildly enlarged -I/O: 2092/3400 with a negative balance of 1308cc. Continue Coreg, Lasix, and Aldactone -Cardiology on consult, Dr. Suarez Sepsis with HCAP -WBC today is 9.3 today from 11.6, afebrile -CXR today showed perihilar infiltrate of right lung that is non changed -currently on vancomycin, merrem day 4 -blood culture negative after 48 hours -MRSA not detected -ID on consult, Dr. Yaneli Lanza -likely 2/2 CHF exacerbation - improved -testicular US is significant for diffuse scrotal wall edema, small B/L hydroceles -scrotal swelling continues to be appreciated on physical exam, continuing with diuresis -urology consulted, Dr. Zimmerman CAD -Cardiac cath in 12/2017 revealed EF 30% and LAD lesion 80%. Questionable follow up with cardiology -patient denies use of life vest -trop negative x2 on 05/09 -ASA 81, coreg 12.5mg BID -Cardiology on consult, Dr. Suarez Diabetes -accuchecks -hypoglycemia protocol -glipizide 5mg, insulin human regualar ACHS -heart healthy diet PPX with heparin and protonix Patient seen, case reviewed by and discussed with attending, Dr. Armas <Sneha Armas R - Last Filed: 05/20/18 07:24> Objective - Vital Signs/Intake and Output Vital Signs (last 24 hours): Temp Pulse Resp BP Pulse Ox 98.4 F 94 H 20 130/83 98 05/20/18 00:00 05/20/18 03:01 05/20/18 00:00 05/20/18 00:00 05/20/18 00:00 Intake and Output: 05/20/18 05/20/18 06:59 18:59 Intake Total 765 Output Total 1395 Balance -630 - Medications Medications: Current Medications Albuterol/Ipratropium (Duoneb 3 Mg/0.5 Mg (3 Ml) Ud) 3 ml IH Q2H PRN PRN Reason: Shortness of Breath Arformoterol Tartrate (Brovana) 15 mcg IH [id number] [facility] Last Admin: 05/19/18 20:44 Dose: 15 mcg Aspirin (Aspirin Chewable) 81 mg PO DAILY [facility] Last Admin: 05/19/18 09:41 Dose: 81 mg Atorvastatin Calcium (Lipitor) 20 mg PO HS [facility] Last Admin: 05/19/18 23:12 Dose: 20 mg Budesonide (Pulmicort Respules) 0.5 mg IH [id number] [facility] Last Admin: 05/19/18 20:45 Dose: 0.5 mg Carvedilol (Coreg) 12.5 mg PO BID [facility] Last Admin: 05/19/18 17:30 Dose: 12.5 mg Clonidine HCl (Catapres) 0.2 mg PO BID [facility] Last Admin: 05/19/18 17:32 Dose: 0.2 mg Dextrose (Dextrose 50% Inj) 0 ml IV STAT PRN; Protocol PRN Reason: Hypoglycemia Protocol Docusate Sodium (Colace) 100 mg PO TID [facility] Last Admin: 05/19/18 17:33 Dose: 100 mg Ferrous Sulfate (Feosol Liq) 300 mg PO TID [facility] Last Admin: 05/19/18 17:34 Dose: 300 mg Furosemide (Lasix) 40 mg IVP Q12 [facility] Last Admin: 05/19/18 23:11 Dose: 40 mg Glipizide (Glucotrol) 5 mg PO ACB [facility] Last Admin: 05/19/18 09:42 Dose: 5 mg Guaifenesin (Robitussin) 100 mg PO Q4H PRN PRN Reason: Cough Heparin Sodium (Porcine) (Heparin) 5,000 units SC Q8 [facility] PRN Reason: Protocol Last Admin: 05/20/18 06:23 Dose: 5,000 units Meropenem (Merrem Iv 1 Gm Premix) 50 mls @ 100 mls/hr IVPB Q8 [facility] PRN Reason: Protocol Stop: 05/25/18 19:01 Last Admin: 05/20/18 06:24 Dose: 100 mls/hr Milrinone Lactate/Dextrose (Primacor 20mg/100ml D5w) 100 mls @ 17.146 mls/hr IV .Q5H50M PRN; Protocol; 0.375 MCG/KG/MIN PRN Reason: TITRATE PER MD ORDER Last Admin: 05/20/18 03:01 Dose: 0.375 mcg/kg/min, 17.146 mls/hr Insulin Human Regular (Humulin R) 0 units SC ACHS [facility] PRN Reason: Protocol Last Admin: 05/19/18 23:13 Dose: Not Given Ipratropium [place] (Atrovent) 0.5 mg IH [id number] [facility] Last Admin: 05/20/18 02:00 Dose: 0.5 mg Lisinopril (Zestril) 2.5 mg PO DAILY [facility] Last Admin: 05/19/18 09:40 Dose: 2.5 mg Methylprednisolone (Solu-Medrol) 30 mg IVP DAILY [facility] Ondansetron HCl (Zofran Tab) 4 mg PO Q8H PRN PRN Reason: Nausea/Vomiting Pantoprazole Sodium (Protonix Ec Tab) 40 mg PO DAILY [facility] Last Admin: 05/19/18 09:42 Dose: 40 mg Polyethylene Glycol (Miralax) 17 gm PO DAILY [facility] Last Admin: 05/19/18 09:43 Dose: 17 gm Spironolactone (Aldactone) 25 mg PO DAILY [facility] Last Admin: 05/19/18 09:43 Dose: 25 mg - Labs Labs: 05/19/18 14:15 05/19/18 05:45 PT 21.4 SECONDS (9.4-12.5) H 05/09/18 17:00 INR 1.85 05/09/18 17:00 APTT 30.9 Seconds (25.1-36.5) 05/09/18 17:00 Attending/Attestation - Attestation I have personally seen and examined this patient.: Yes I have fully participated in the care of the patient.: Yes I have reviewed all pertinent clinical information, including history, physical exam and plan: Yes Notes (Text): Patient seen and examined by me at 9:45AM with resident 05/19/18. Case including HPI, physical exam, and assessment and plan discussed with resident. Agree with above with following additions/corrections. Patient is a 52 year old male with past medical history significant for COPD, CAD, CHF, DM2, HTN, hperlipidemia, lumbar radiculopathy, and gout that presented to the emergency room with shortness of breath. Patient states he is feeling better today. Feels breathing has improved. Patient is upset because his mouth feels dry and he wants to drink water. Patient is on thickened liquids. Patient was compliant with BIPAP over night. He denies chest pain or palpitations. No headache or dizziness. No fevers or chills. No nausea, vomiting, or abdominal pain. No dysuria. Patient is having bowel movements. Physical exam: Gen: Awake and alert sitting up in chair in no acute distress HEENT: Normocephalic, atraumatic. Extraocular muscles intact, pupils equal reactive. No scleral icterus. Oropharynx is pink and moist. Neck is supple. Cardiovascular: Normal rhythm. Normal S1, S2. No murmurs, rubs, or gallops appreciated Pulmonary: Respiratory effort improved. No use of accessory muscles today. Decreased breath sounds. No rhonchi, rales, or wheezing appreciated. Gastrointestinal: Soft, nontender, distended. Globular abdomen. Positive bowel sounds all 4 quadrants, no guarding. Musculoskeletal: Moves all extremities. No calf tenderness. Positive lower extremity pitting edema Central nervous system: AAO x 3. Dermatologic: Skin warm and dry, bilateral lower extremity chronic stasis color changes. Assessment and plan: Patient is a 52 year old male with past medical history significant for COPD, CAD, CHF, DM2, HTN, hperlipidemia, lumbar radiculopathy, and gout that presented to the emergency room with shortness of breath. 1. Acute respiratory failure. CO2 narcosis. Improved. Continue with BIPAP. Chest xray per radiologist shows improvement in the left sided opacificaton; no change in right sided perhilar infiltrate or vascular congestion. Continue Chest PT. 2. Complete opacification of left lung on chest xray. Improving. Chest xray today per radiologist shows improvement in the left sided opacificaton; no change in right sided perhilar infiltrate or vascular congestion. Continue Lasix 40 mg IV every 12 hours. Continue Aldactone. Continue to monitor ins and outs. Continue chest PT. May need bronchoscopy 3. Healthcare acquired pneumonia. ID following, recommendations appreciated. Continue vancomycin and meropenem, day #4. Continue guaifenesin as needed. Continue nebulizer treatments. 4. Respiratory distress. Multifactorial. Secondary to acute on chronic systolic CHF exacerbation, COPD, and non compliance with medications, CO2 narcosis and left lung opacification, pleural effusions, and healthcare acquired pneumonia. Continue with milrinone drip. Continue Coreg, Lasix, Lisinopril, and Aldactone. Continue to monitor I's and O's. Continue to monitor daily weights. Cardiology following, recommendations appreciated 5. COPD exacerbation. Continue with BiPAP. Taper Solu-Medrol. Continue Brovana, Pulmicort, and nebulizer treatments. Continue O2 via nasal cannula. Pulmonary following, recommendations appreciated. 6. Medication noncompliance. Importance of compliance discussed with patient at length. Patient encouraged to use BIPAP. Palliative care consulted. Psychiatry following, recommendations appreciated. 7. HIV 1 antibody positive, HIV fourth generation positive, likely false positive. CD4 count 747. Viral load not detected. ID following, recommendations appreciated. 8. Abnormal urinalysis. ID following, recommendations appreciated. S/P antibiotic treatment. 9. CAD s/p stent placement. Patient non-compliant with medications and follow up with doctors. Contine Coreg, ASA, Lisinopril and Lipitor. 10. Hypertension. Continue Clonidine, lasix, Lisinopril, and Coreg. On milrinone drip 11. DM2. Continue insulin sliding scale and glipizide. Continue to monitor accuchecks. 12. Hyperlipidemia. Continue Lipitor 13. Chronic anemia. No signs of acute bleeding. H&H downtrended. Will repeat CBC. Continue to monitor. Continue ferrous sulfate 14. Scrotal edema. Likely secondary to anasarca from decompensated CHF. Testicular ultrasound per radiologist shows diffuse scrotal wall edema, no drainable fluid collection, small bilateral hydroceles, no evidence for testicular torsion or mass. Urology following, recommendations appreciated. 15. GI/DVT prophylaxis. 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
--- NOTE | 2018-05-19 12:44 | CP.CCUPN ---
<Monet Stewart - Last Filed: 05/19/18 12:41> CCU Subjective - Physician Review Events Since Last Encounter (Free Text): 05/19/18 12:42 Patient seen and examined at bedside. No acute events overnight. Patient tolerating bipap well. Reports that his breathing is better, states that he is coughing up secretions. Denies fevers, chills, nausea, vomiting, leg swelling, abdominal pain. Patient tolerating PO diet well. Had BM this AM. Critical Care Time Spent (in minutes): 60 CCU Objective - Vital Signs / Intake & Output Vital Signs (Last 4 hours): Vital Signs Pulse BP 05/19/18 09:43 169/106 H 05/19/18 09:40 98 H 169/106 H 05/19/18 09:38 97 H 169/106 H Intake and Output (Last 8hrs): Intake & Output 05/18/18 05/19/18 05/19/18 22:59 06:59 14:59 Intake Total 1892 745 Output Total 3400 2775 Balance -1508 -2029 Weight 336 lb Intake: IV 704 505 Antibiotics 300 200 Primacor 204 205 Oral 1188 240 Output: Urine 3400 2775 Urethral (Lugo) 3400 2775 Stool 0 Emesis 0 Other: # Bowel Movements 0 - Physical Exam Head: Positive for: Atraumatic, Normocephalic Pupils: Positive for: PERRL Extroacular Muscles: Positive for: EOMI Conjunctiva: Positive for: Normal Mouth: Positive for: Moist Mucous Membranes Neck: Positive for: Normal Range of Motion Respiratory/Chest: Positive for: Decreased Breath Sounds (on right lung - upper/ lower lobes), Other (Good aeration on left upper lobes auscultated). Negative for: Clear to Auscultation, Respiratory Distress, Accessory Muscle Use, Retracting, Rhonchi, Tachypneic Cardiovascular: Positive for: Regular Rate and Rhythm, Normal S1, S2. Negative for: Murmurs Abdomen: Positive for: Normal Bowel Sounds. Negative for: Tenderness, Peritoneal Signs, Rebound, Guarding Back: Positive for: Normal Inspection Upper Extremity: Positive for: NORMAL PULSES. Negative for: Cyanosis Lower Extremity: Positive for: Other (chronic venous stasis changes). Negative for: Edema, CALF TENDERNESS Neurological: Positive for: GCS=15, CN II-XII Intact, Speech Normal Skin: Positive for: Dry. Negative for: Rashes Psychiatric: Positive for: Alert, Oriented x 3 - Medications Active Medications: Active Medications Generic Name Dose Route Start Last Admin Trade Name Freq PRN Reason Stop Dose Admin Albuterol/Ipratropium 3 ml 05/16/18 16:39 Duoneb 3 Mg/0.5 Mg (3 Ml) Ud IH Q2H PRN Shortness of Breath Arformoterol Tartrate 15 mcg 05/11/18 20:00 05/19/18 07:22 Brovana IH 15 mcg [id number] ED Administration Aspirin 81 mg 05/10/18 10:00 05/19/18 09:41 Aspirin Chewable PO 81 mg DAILY ED Administration Atorvastatin Calcium 20 mg 05/15/18 22:00 05/18/18 22:50 Lipitor PO 20 mg HS ED Administration Budesonide 0.5 mg 05/11/18 20:00 05/19/18 07:22 Pulmicort Respules IH 0.5 mg [id number] ED Administration Carvedilol 12.5 mg 05/12/18 11:15 05/18/18 17:10 Coreg PO 12.5 mg BID ED Administration Clonidine HCl 0.2 mg 05/13/18 10:45 05/19/18 09:38 Catapres PO 0.2 mg BID ED Administration Dextrose 0 ml 05/09/18 20:21 Dextrose 50% Inj IV STAT PRN Hypoglycemia Protocol Protocol Docusate Sodium 100 mg 05/12/18 18:00 05/19/18 09:42 Colace PO 100 mg TID ED Administration Ferrous Sulfate 300 mg 05/12/18 18:00 05/19/18 09:42 Feosol Liq PO 300 mg TID ED Administration Furosemide 40 mg 05/16/18 12:15 05/19/18 09:43 Lasix IVP 40 mg Q12 ED Administration Glipizide 5 mg 05/12/18 17:45 05/19/18 09:42 Glucotrol PO 5 mg ACB ED Administration Guaifenesin 100 mg 05/16/18 17:28 Robitussin PO Q4H PRN Cough Heparin Sodium (Porcine) 5,000 units 05/14/18 14:00 05/19/18 06:21 Heparin SC 5,000 units Q8 ED Administration Protocol Meropenem 50 mls @ 100 mls/hr 05/16/18 19:00 05/19/18 06:20 Merrem Iv 1 Gm Premix IVPB 05/25/18 19:01 100 mls/hr Q8 ED Administration Protocol Milrinone Lactate/Dextrose 100 mls @ 17.146 mls/hr 05/17/18 08:47 05/19/18 04 :52 Primacor 20mg/100ml D5w IV 0.375 mcg/kg/min .Q5H50M PRN 17.146 mls/hr TITRATE PER MD ORDER Administration Protocol 0.375 MCG/KG/MIN Insulin Human Regular 0 units 05/11/18 11:30 05/19/18 09:31 Humulin R SC Not Given ACHS ED Protocol Ipratropium [place] 0.5 mg 05/17/18 20:00 05/19/18 01:27 Atrovent IH 0.5 mg [id number] ED Administration Lisinopril 2.5 mg 05/18/18 10:30 05/19/18 09:40 Zestril PO 2.5 mg DAILY ED Administration Methylprednisolone 40 mg 05/19/18 10:00 05/19/18 09:38 Solu-Medrol IVP 40 mg DAILY ED Administration Ondansetron HCl 4 mg 05/12/18 07:53 Zofran Tab PO Q8H PRN Nausea/Vomiting Pantoprazole Sodium 40 mg 05/12/18 10:00 05/19/18 09:42 Protonix Ec Tab PO 40 mg DAILY ED Administration Polyethylene Glycol 17 gm 05/12/18 17:45 05/19/18 09:43 Miralax PO 17 gm DAILY ED Administration Spironolactone 25 mg 05/12/18 11:15 05/19/18 09:43 Aldactone PO 25 mg DAILY ED Administration - Patient Studies Lab Studies: Microbiology Studies 05/17/18 09:15 Gram Stain - Final Sputum Sputum Culture - Final NORMAL ORAL LUCIANO 05/16/18 22:40 Blood Culture - Preliminary Blood NO GROWTH AFTER 48 HOURS 05/16/18 22:40 Blood Culture - Preliminary Blood NO GROWTH AFTER 48 HOURS Lab Studies 05/19/18 05/19/18 05/19/18 Range/Units 11:04 07:52 05:45 WBC (4.5-11.0) 10^3/ul RBC (3.5-6.1) 10^6/uL Hgb (14.0-18.0) g/dL Hct (42.0-52.0) % MCV (80.0-105.0) fl MCH (25.0-35.0) pg MCHC (31.0-37.0) g/dl RDW (11.5-14.5) % Plt Count (120.0-450.0) 10^3/uL Gran % (50.0-68.0) % Lymph % (Auto) (22.0-35.0) % Ware % (Auto) (1.0-6.0) % Eos % (Auto) (1.5-5.0) % Baso % (Auto) (0.0-3.0) % Gran # (1.4-6.5) Lymph # (Auto) (1.2-3.4) Ware # (Auto) (0.1-0.6) Eos # (Auto) (0.0-0.7) Baso # (Auto) (0.0-2.0) K/mm3 pCO2 (35-45) mm/Hg pO2 (80-100) mm/Hg HCO3 (21-28) mmol/L ABG pH (7.35-7.45) ABG Total CO2 (22-28) mmol.L ABG O2 Saturation (95-98) % ABG O2 Content (15-23) ML/dl ABG Base Excess (-2.0-3.0) mmol/L ABG Hemoglobin (11.7-17.4) g/dL ABG Carboxyhemoglobin (0.5-1.5) % POC ABG HHb (Measured) (0-5) % ABG Methemoglobin (0.0-3.0) % ABG O2 Capacity (16-24) mL/dl Hgb O2 Saturation (95.0-98.0) % FiO2 % Sodium 147 (132-148) mmol/L Potassium 3.9 (3.6-5.0) mmol/L Chloride 99 (98-107) mmol/L Carbon Dioxide 40 H (21-33) mmol/L Anion Gap 12 (10-20) BUN 48 H (7-21) mg/dL Creatinine 1.0 (0.8-1.5) mg/dl Est GFR ( Amer) > 60 Est GFR (Non-Af Amer) > 60 POC Glucose (mg/dL) 164 H 137 H (65-110) mg/dL Random Glucose 121 H (70-110) mg/dL Calcium 8.7 (8.4-10.5) mg/dL Phosphorus 3.0 (2.5-4.5) mg/dL Magnesium 1.9 (1.7-2.2) mg/dL Total Bilirubin 0.7 (0.2-1.3) mg/dL AST 35 (17-59) U/L ALT 30 (7-56) U/L Alkaline Phosphatase 262 H (38-126) U/L Total Protein 6.1 (5.8-8.3) g/dL Albumin 2.9 L (3.0-4.8) g/dL Globulin 3.2 gm/dL Albumin/Globulin Ratio 0.9 L (1.1-1.8) 05/19/18 05/19/18 05/18/18 Range/Units 05:45 05:10 22:14 WBC 9.3 (4.5-11.0) 10^3/ul RBC 3.93 (3.5-6.1) 10^6/uL Hgb 7.9 L (14.0-18.0) g/dL Hct 29.2 L (42.0-52.0) % MCV 74.3 L (80.0-105.0) fl MCH 20.1 L (25.0-35.0) pg MCHC 27.1 L (31.0-37.0) g/dl RDW 24.6 H (11.5-14.5) % Plt Count 208 (120.0-450.0) 10^3/uL Gran % 59.6 (50.0-68.0) % Lymph % (Auto) 25.6 (22.0-35.0) % Ware % (Auto) 13.9 H (1.0-6.0) % Eos % (Auto) 0.8 L (1.5-5.0) % Baso % (Auto) 0.1 (0.0-3.0) % Gran # 5.56 (1.4-6.5) Lymph # (Auto) 2.4 (1.2-3.4) Ware # (Auto) 1.3 H (0.1-0.6) Eos # (Auto) 0.1 (0.0-0.7) Baso # (Auto) 0.01 (0.0-2.0) K/mm3 pCO2 58 H (35-45) mm/Hg pO2 56.0 L (80-100) mm/Hg HCO3 42.2 H* (21-28) mmol/L ABG pH 7.47 H (7.35-7.45) ABG Total CO2 44.0 H (22-28) mmol.L ABG O2 Saturation 95.1 (95-98) % ABG O2 Content 9.6 L (15-23) ML/dl ABG Base Excess 16.8 H (-2.0-3.0) mmol/L ABG Hemoglobin 7.3 L (11.7-17.4) g/dL ABG Carboxyhemoglobin 2.5 H (0.5-1.5) % POC ABG HHb (Measured) 4.8 (0-5) % ABG Methemoglobin 0.0 (0.0-3.0) % ABG O2 Capacity 10.1 L (16-24) mL/dl Hgb O2 Saturation 92.7 L (95.0-98.0) % FiO2 40.0 % Sodium (132-148) mmol/L Potassium (3.6-5.0) mmol/L Chloride (98-107) mmol/L Carbon Dioxide (21-33) mmol/L Anion Gap (10-20) BUN (7-21) mg/dL Creatinine (0.8-1.5) mg/dl Est GFR ( Amer) Est GFR (Non-Af Amer) POC Glucose (mg/dL) 189 H (65-110) mg/dL Random Glucose (70-110) mg/dL Calcium (8.4-10.5) mg/dL Phosphorus (2.5-4.5) mg/dL Magnesium (1.7-2.2) mg/dL Total Bilirubin (0.2-1.3) mg/dL AST (17-59) U/L ALT (7-56) U/L Alkaline Phosphatase (38-126) U/L Total Protein (5.8-8.3) g/dL Albumin (3.0-4.8) g/dL Globulin gm/dL Albumin/Globulin Ratio (1.1-1.8) 05/18/18 05/18/18 Range/Units 16:16 14:25 WBC (4.5-11.0) 10^3/ul RBC (3.5-6.1) 10^6/uL Hgb (14.0-18.0) g/dL Hct (42.0-52.0) % MCV (80.0-105.0) fl MCH (25.0-35.0) pg MCHC (31.0-37.0) g/dl RDW (11.5-14.5) % Plt Count (120.0-450.0) 10^3/uL Gran % (50.0-68.0) % Lymph % (Auto) (22.0-35.0) % Ware % (Auto) (1.0-6.0) % Eos % (Auto) (1.5-5.0) % Baso % (Auto) (0.0-3.0) % Gran # (1.4-6.5) Lymph # (Auto) (1.2-3.4) Ware # (Auto) (0.1-0.6) Eos # (Auto) (0.0-0.7) Baso # (Auto) (0.0-2.0) K/mm3 pCO2 71 H* (35-45) mm/Hg pO2 59.0 L (80-100) mm/Hg HCO3 38.3 H (21-28) mmol/L ABG pH 7.34 L (7.35-7.45) ABG Total CO2 40.5 H (22-28) mmol.L ABG O2 Saturation 92.7 L (95-98) % ABG O2 Content 10.1 L (15-23) ML/dl ABG Base Excess 11.0 H (-2.0-3.0) mmol/L ABG Hemoglobin 8.0 L (11.7-17.4) g/dL ABG Carboxyhemoglobin 2.9 H (0.5-1.5) % POC ABG HHb (Measured) 7.0 H (0-5) % ABG Methemoglobin 0.9 (0.0-3.0) % ABG O2 Capacity 10.9 L (16-24) mL/dl Hgb O2 Saturation 89.1 L (95.0-98.0) % FiO2 40.0 % Sodium (132-148) mmol/L Potassium (3.6-5.0) mmol/L Chloride (98-107) mmol/L Carbon Dioxide (21-33) mmol/L Anion Gap (10-20) BUN (7-21) mg/dL Creatinine (0.8-1.5) mg/dl Est GFR ( Amer) Est GFR (Non-Af Amer) POC Glucose (mg/dL) 223 H (65-110) mg/dL Random Glucose (70-110) mg/dL Calcium (8.4-10.5) mg/dL Phosphorus (2.5-4.5) mg/dL Magnesium (1.7-2.2) mg/dL Total Bilirubin (0.2-1.3) mg/dL AST (17-59) U/L ALT (7-56) U/L Alkaline Phosphatase (38-126) U/L Total Protein (5.8-8.3) g/dL Albumin (3.0-4.8) g/dL Globulin gm/dL Albumin/Globulin Ratio (1.1-1.8) Laboratory Results - last 24 hr 05/18/18 05/18/18 05/18/18 14:25 16:16 22:14 WBC RBC Hgb Hct MCV MCH MCHC RDW Plt Count Gran % Lymph % (Auto) Ware % (Auto) Eos % (Auto) Baso % (Auto) Gran # Lymph # (Auto) Ware # (Auto) Eos # (Auto) Baso # (Auto) pCO2 71 H* pO2 59.0 L HCO3 38.3 H ABG pH 7.34 L ABG Total CO2 40.5 H ABG O2 Saturation 92.7 L ABG O2 Content 10.1 L ABG Base Excess 11.0 H ABG Hemoglobin 8.0 L ABG Carboxyhemoglobin 2.9 H POC ABG HHb (Measured) 7.0 H ABG Methemoglobin 0.9 ABG O2 Capacity 10.9 L Hgb O2 Saturation 89.1 L FiO2 40.0 Sodium Potassium Chloride Carbon Dioxide Anion Gap BUN Creatinine Est GFR ( Amer) Est GFR (Non-Af Amer) POC Glucose (mg/dL) 223 H 189 H Random Glucose Calcium Phosphorus Magnesium Total Bilirubin AST ALT Alkaline Phosphatase Total Protein Albumin Globulin Albumin/Globulin Ratio 05/19/18 05/19/18 05/19/18 05:10 05:45 05:45 WBC 9.3 RBC 3.93 Hgb 7.9 L Hct 29.2 L MCV 74.3 L MCH 20.1 L MCHC 27.1 L RDW 24.6 H Plt Count 208 Gran % 59.6 Lymph % (Auto) 25.6 Ware % (Auto) 13.9 H Eos % (Auto) 0.8 L Baso % (Auto) 0.1 Gran # 5.56 Lymph # (Auto) 2.4 Ware # (Auto) 1.3 H Eos # (Auto) 0.1 Baso # (Auto) 0.01 pCO2 58 H pO2 56.0 L HCO3 42.2 H* ABG pH 7.47 H ABG Total CO2 44.0 H ABG O2 Saturation 95.1 ABG O2 Content 9.6 L ABG Base Excess 16.8 H ABG Hemoglobin 7.3 L ABG Carboxyhemoglobin 2.5 H POC ABG HHb (Measured) 4.8 ABG Methemoglobin 0.0 ABG O2 Capacity 10.1 L Hgb O2 Saturation 92.7 L FiO2 40.0 Sodium 147 Potassium 3.9 Chloride 99 Carbon Dioxide 40 H Anion Gap 12 BUN 48 H Creatinine 1.0 Est GFR ( Amer) > 60 Est GFR (Non-Af Amer) > 60 POC Glucose (mg/dL) Random Glucose 121 H Calcium 8.7 Phosphorus 3.0 Magnesium 1.9 Total Bilirubin 0.7 AST 35 ALT 30 Alkaline Phosphatase 262 H Total Protein 6.1 Albumin 2.9 L Globulin 3.2 Albumin/Globulin Ratio 0.9 L 05/19/18 05/19/18 07:52 11:04 WBC RBC Hgb Hct MCV MCH MCHC RDW Plt Count Gran % Lymph % (Auto) Ware % (Auto) Eos % (Auto) Baso % (Auto) Gran # Lymph # (Auto) Ware # (Auto) Eos # (Auto) Baso # (Auto) pCO2 pO2 HCO3 ABG pH ABG Total CO2 ABG O2 Saturation ABG O2 Content ABG Base Excess ABG Hemoglobin ABG Carboxyhemoglobin POC ABG HHb (Measured) ABG Methemoglobin ABG O2 Capacity Hgb O2 Saturation FiO2 Sodium Potassium Chloride Carbon Dioxide Anion Gap BUN Creatinine Est GFR ( Amer) Est GFR (Non-Af Amer) POC Glucose (mg/dL) 137 H 164 H Random Glucose Calcium Phosphorus Magnesium Total Bilirubin AST ALT Alkaline Phosphatase Total Protein Albumin Globulin Albumin/Globulin Ratio Fingerstick Blood Sugar Results: 137 Review of Systems - Review of Systems All systems: reviewed and no additional remarkable complaints except Review of Systems: as per HPI Critical Care Progress Note - Nutrition Nutrition: Nutrition Category Date Time Status Heart Healthy Diet [DIET] Diets 05/19/18 Lunch Active Assessment/Plan - Assessment and Plan (Free Text) Assessment: 52 year old male with PMH COPD on 2L home O2, DM2, CHF with EF 39.1% (04/2018), CAD with stents, HTN, HLD, gout, admitted to ICU for hypercapneic respiratory failure 2/2 likely COPD exacerbation. On imaging, patient found to be have complete opacification of left lung, bilateral pleural effusion R>L, and perihilar right sided infiltrate. Patient receiving aggressive chest physiotherapy, postural drainage, mucomyst, bronchodilators treatment, hypertonic saline inhalation, steroids. CXR this AM shows improved aeration on left side of lung, still right sided pleural effusion noted. ABG shows improved hypercapnea this AM. Switched patient to NC, will monitor and obtain ABG: Neuro: AAOx3 today. Cont to monitor. CV: -maintain MAP>65 -ECHO 04/2018: EF 39.1%. mild concentric LVH, systolic function moderately impaired, septal hypokinesis, mild MR, moderate TR, mild pulmonary HTN, aortic root mildly enlarged -Hx of CHF with EF 39%, c/w BB, lasix, aldactone. will start home HANS-i. -Cardio on consult, Dr. Syed -BNP elevated this admission. CHF exacerbation. C/w strict I&Os, daily weights. -C/w Milrinone drip -lasix 40 IV q12 -diuresing well, Output 2000 ml. -put on 1L fluid restriction diet -Cont to monitor. Pulm: switched to NC in AM, will obtain ABG 2 hours later. If stable, patient can be transferred off ICU. maintain nightly bipap. -duonebs ed and prn, solumedrol 30mg IV daily, short and long acting bronchodilators, ICS -CXR this AM shows improving left atelectasis. -Aggressive chest physiotherapy, postural drainage, mucomyst, hypertonic saline inhalation -On HCAP coverage Merrem and Vanco -closely monitor GI: Continue with Protonix. heart healthy diet, fluid restriction. Renal : Replace lytes, maintain euvolemia. Continue to monitor. ID: -CXR shows new right perihilar infiltrate. -afebrile, mild leukocytosis 11.6 -C/w HCAP coverage - Vanco, Merrem -ID on board. f/u recs. Endo: Continue with ISS low. Maintain euglycemia. Heme: iron deficiency anemia. On feosol. Stable, Cont to monitor. DVT ppx - SQ heparin GI ppx - Protonix Case seen and discussed with attending, Dr Mcwilliams. Claudia Stewart, PGY2 <Randall Mcwilliams B - Last Filed: 05/19/18 16:48> CCU Objective - Vital Signs / Intake & Output Vital Signs (Last 4 hours): Vital Signs Resp BP Pulse Ox 05/19/18 15:30 174/108 H 100 05/19/18 13:00 26 H 126/66 95 Intake and Output (Last 8hrs): Intake & Output 05/19/18 05/19/18 05/19/18 06:59 14:59 22:59 Intake Total 745 100 600 Output Total 2775 950 Balance -2030 100 -350 Weight 336 lb Intake: IV 505 100 Antibiotics 200 Primacor 205 Oral 240 600 Output: Urine 2775 950 Urethral (Lugo) 2775 950 Other: # Bowel Movements 0 0 - Medications Active Medications: Active Medications Generic Name Dose Route Start Last Admin Trade Name Freq PRN Reason Stop Dose Admin Albuterol/Ipratropium 3 ml 05/16/18 16:39 Duoneb 3 Mg/0.5 Mg (3 Ml) Ud IH Q2H PRN Shortness of Breath Arformoterol Tartrate 15 mcg 05/11/18 20:00 05/19/18 07:22 Brovana IH 15 mcg [id number] ED Administration Aspirin 81 mg 05/10/18 10:00 05/19/18 09:41 Aspirin Chewable PO 81 mg DAILY ED Administration Atorvastatin Calcium 20 mg 05/15/18 22:00 05/18/18 22:50 Lipitor PO 20 mg HS ED Administration Budesonide 0.5 mg 05/11/18 20:00 05/19/18 07:22 Pulmicort Respules IH 0.5 mg [id number] ED Administration Carvedilol 12.5 mg 05/12/18 11:15 05/19/18 10:00 Coreg PO 12.5 mg BID ED Administration Clonidine HCl 0.2 mg 05/13/18 10:45 05/19/18 09:38 Catapres PO 0.2 mg BID ED Administration Dextrose 0 ml 05/09/18 20:21 Dextrose 50% Inj IV STAT PRN Hypoglycemia Protocol Protocol Docusate Sodium 100 mg 05/12/18 18:00 05/19/18 14:02 Colace PO 100 mg TID ED Administration Ferrous Sulfate 300 mg 05/12/18 18:00 05/19/18 14:02 Feosol Liq PO 300 mg TID ED Administration Furosemide 40 mg 05/16/18 12:15 05/19/18 09:43 Lasix IVP 40 mg Q12 ED Administration Glipizide 5 mg 05/12/18 17:45 05/19/18 09:42 Glucotrol PO 5 mg ACB ED Administration Guaifenesin 100 mg 05/16/18 17:28 Robitussin PO Q4H PRN Cough Heparin Sodium (Porcine) 5,000 units 05/14/18 14:00 05/19/18 14:02 Heparin SC 5,000 units Q8 ED Administration Protocol Meropenem 50 mls @ 100 mls/hr 05/16/18 19:00 05/19/18 15:16 Merrem Iv 1 Gm Premix IVPB 05/25/18 19:01 100 mls/hr Q8 ED Administration Protocol Milrinone Lactate/Dextrose 100 mls @ 17.146 mls/hr 05/17/18 08:47 05/19/18 15 :17 Primacor 20mg/100ml D5w IV 0.375 mcg/kg/min .Q5H50M PRN 17.146 mls/hr TITRATE PER MD ORDER Administration Protocol 0.375 MCG/KG/MIN Insulin Human Regular 0 units 05/11/18 11:30 05/19/18 13:58 Humulin R SC 1 unit ACHS ED Administration Protocol Ipratropium [place] 0.5 mg 05/17/18 20:00 05/19/18 01:27 Atrovent IH 0.5 mg [id number] ED Administration Lisinopril 2.5 mg 05/18/18 10:30 05/19/18 09:40 Zestril PO 2.5 mg DAILY ED Administration Methylprednisolone 30 mg 05/19/18 12:48 Solu-Medrol IVP DAILY ED Ondansetron HCl 4 mg 05/12/18 07:53 Zofran Tab PO Q8H PRN Nausea/Vomiting Pantoprazole Sodium 40 mg 05/12/18 10:00 05/19/18 09:42 Protonix Ec Tab PO 40 mg DAILY ED Administration Polyethylene Glycol 17 gm 05/12/18 17:45 05/19/18 09:43 Miralax PO 17 gm DAILY ED Administration Spironolactone 25 mg 05/12/18 11:15 05/19/18 09:43 Aldactone PO 25 mg DAILY ED Administration - Patient Studies Lab Studies: Microbiology Studies 05/17/18 09:15 Gram Stain - Final Sputum Sputum Culture - Final NORMAL ORAL LUCIANO 05/16/18 22:40 Blood Culture - Preliminary Blood NO GROWTH AFTER 48 HOURS 05/16/18 22:40 Blood Culture - Preliminary Blood NO GROWTH AFTER 48 HOURS Lab Studies 05/19/18 05/19/18 05/19/18 Range/Units 14:15 13:20 11:04 WBC (4.5-11.0) 10^3/ul RBC (3.5-6.1) 10^6/uL Hgb 8.1 L (14.0-18.0) g/dL Hct (42.0-52.0) % MCV (80.0-105.0) fl MCH (25.0-35.0) pg MCHC (31.0-37.0) g/dl RDW (11.5-14.5) % Plt Count (120.0-450.0) 10^3/uL Gran % (50.0-68.0) % Lymph % (Auto) (22.0-35.0) % Ware % (Auto) (1.0-6.0) % Eos % (Auto) (1.5-5.0) % Baso % (Auto) (0.0-3.0) % Gran # (1.4-6.5) Lymph # (Auto) (1.2-3.4) Ware # (Auto) (0.1-0.6) Eos # (Auto) (0.0-0.7) Baso # (Auto) (0.0-2.0) K/mm3 pCO2 63 H (35-45) mm/Hg pO2 58.0 L (80-100) mm/Hg HCO3 39.9 H (21-28) mmol/L ABG pH 7.41 (7.35-7.45) ABG Total CO2 41.8 H (22-28) mmol.L ABG O2 Saturation 93.7 L (95-98) % ABG O2 Content 9.9 L (15-23) ML/dl ABG Base Excess 13.6 H (-2.0-3.0) mmol/L ABG Hemoglobin 7.7 L (11.7-17.4) g/dL ABG Carboxyhemoglobin 2.0 H (0.5-1.5) % POC ABG HHb (Measured) 6.1 H (0-5) % ABG Methemoglobin 0.9 (0.0-3.0) % ABG O2 Capacity 10.6 L (16-24) mL/dl Hgb O2 Saturation 91.0 L (95.0-98.0) % FiO2 28.0 % Sodium (132-148) mmol/L Potassium (3.6-5.0) mmol/L Chloride (98-107) mmol/L Carbon Dioxide (21-33) mmol/L Anion Gap (10-20) BUN (7-21) mg/dL Creatinine (0.8-1.5) mg/dl Est GFR ( Amer) Est GFR (Non-Af Amer) POC Glucose (mg/dL) 164 H (65-110) mg/dL Random Glucose (70-110) mg/dL Calcium (8.4-10.5) mg/dL Phosphorus (2.5-4.5) mg/dL Magnesium (1.7-2.2) mg/dL Total Bilirubin (0.2-1.3) mg/dL AST (17-59) U/L ALT (7-56) U/L Alkaline Phosphatase (38-126) U/L Total Protein (5.8-8.3) g/dL Albumin (3.0-4.8) g/dL Globulin gm/dL Albumin/Globulin Ratio (1.1-1.8) 05/19/18 05/19/18 05/19/18 Range/Units 07:52 05:45 05:45 WBC 9.3 (4.5-11.0) 10^3/ul RBC 3.93 (3.5-6.1) 10^6/uL Hgb 7.9 L (14.0-18.0) g/dL Hct 29.2 L (42.0-52.0) % MCV 74.3 L (80.0-105.0) fl MCH 20.1 L (25.0-35.0) pg MCHC 27.1 L (31.0-37.0) g/dl RDW 24.6 H (11.5-14.5) % Plt Count 208 (120.0-450.0) 10^3/uL Gran % 59.6 (50.0-68.0) % Lymph % (Auto) 25.6 (22.0-35.0) % Ware % (Auto) 13.9 H (1.0-6.0) % Eos % (Auto) 0.8 L (1.5-5.0) % Baso % (Auto) 0.1 (0.0-3.0) % Gran # 5.56 (1.4-6.5) Lymph # (Auto) 2.4 (1.2-3.4) Ware # (Auto) 1.3 H (0.1-0.6) Eos # (Auto) 0.1 (0.0-0.7) Baso # (Auto) 0.01 (0.0-2.0) K/mm3 pCO2 (35-45) mm/Hg pO2 (80-100) mm/Hg HCO3 (21-28) mmol/L ABG pH (7.35-7.45) ABG Total CO2 (22-28) mmol.L ABG O2 Saturation (95-98) % ABG O2 Content (15-23) ML/dl ABG Base Excess (-2.0-3.0) mmol/L ABG Hemoglobin (11.7-17.4) g/dL ABG Carboxyhemoglobin (0.5-1.5) % POC ABG HHb (Measured) (0-5) % ABG Methemoglobin (0.0-3.0) % ABG O2 Capacity (16-24) mL/dl Hgb O2 Saturation (95.0-98.0) % FiO2 % Sodium 147 (132-148) mmol/L Potassium 3.9 (3.6-5.0) mmol/L Chloride 99 (98-107) mmol/L Carbon Dioxide 40 H (21-33) mmol/L Anion Gap 12 (10-20) BUN 48 H (7-21) mg/dL Creatinine 1.0 (0.8-1.5) mg/dl Est GFR ( Amer) > 60 Est GFR (Non-Af Amer) > 60 POC Glucose (mg/dL) 137 H (65-110) mg/dL Random Glucose 121 H (70-110) mg/dL Calcium 8.7 (8.4-10.5) mg/dL Phosphorus 3.0 (2.5-4.5) mg/dL Magnesium 1.9 (1.7-2.2) mg/dL Total Bilirubin 0.7 (0.2-1.3) mg/dL AST 35 (17-59) U/L ALT 30 (7-56) U/L Alkaline Phosphatase 262 H (38-126) U/L Total Protein 6.1 (5.8-8.3) g/dL Albumin 2.9 L (3.0-4.8) g/dL Globulin 3.2 gm/dL Albumin/Globulin Ratio 0.9 L (1.1-1.8) 05/19/18 05/18/18 05/18/18 Range/Units 05:10 22:14 16:16 WBC (4.5-11.0) 10^3/ul RBC (3.5-6.1) 10^6/uL Hgb (14.0-18.0) g/dL Hct (42.0-52.0) % MCV (80.0-105.0) fl MCH (25.0-35.0) pg MCHC (31.0-37.0) g/dl RDW (11.5-14.5) % Plt Count (120.0-450.0) 10^3/uL Gran % (50.0-68.0) % Lymph % (Auto) (22.0-35.0) % Ware % (Auto) (1.0-6.0) % Eos % (Auto) (1.5-5.0) % Baso % (Auto) (0.0-3.0) % Gran # (1.4-6.5) Lymph # (Auto) (1.2-3.4) Ware # (Auto) (0.1-0.6) Eos # (Auto) (0.0-0.7) Baso # (Auto) (0.0-2.0) K/mm3 pCO2 58 H (35-45) mm/Hg pO2 56.0 L (80-100) mm/Hg HCO3 42.2 H* (21-28) mmol/L ABG pH 7.47 H (7.35-7.45) ABG Total CO2 44.0 H (22-28) mmol.L ABG O2 Saturation 95.1 (95-98) % ABG O2 Content 9.6 L (15-23) ML/dl ABG Base Excess 16.8 H (-2.0-3.0) mmol/L ABG Hemoglobin 7.3 L (11.7-17.4) g/dL ABG Carboxyhemoglobin 2.5 H (0.5-1.5) % POC ABG HHb (Measured) 4.8 (0-5) % ABG Methemoglobin 0.0 (0.0-3.0) % ABG O2 Capacity 10.1 L (16-24) mL/dl Hgb O2 Saturation 92.7 L (95.0-98.0) % FiO2 40.0 % Sodium (132-148) mmol/L Potassium (3.6-5.0) mmol/L Chloride (98-107) mmol/L Carbon Dioxide (21-33) mmol/L Anion Gap (10-20) BUN (7-21) mg/dL Creatinine (0.8-1.5) mg/dl Est GFR ( Amer) Est GFR (Non-Af Amer) POC Glucose (mg/dL) 189 H 223 H (65-110) mg/dL Random Glucose (70-110) mg/dL Calcium (8.4-10.5) mg/dL Phosphorus (2.5-4.5) mg/dL Magnesium (1.7-2.2) mg/dL Total Bilirubin (0.2-1.3) mg/dL AST (17-59) U/L ALT (7-56) U/L Alkaline Phosphatase (38-126) U/L Total Protein (5.8-8.3) g/dL Albumin (3.0-4.8) g/dL Globulin gm/dL Albumin/Globulin Ratio (1.1-1.8) 05/18/18 05/18/18 Range/Units 10:54 07:24 WBC (4.5-11.0) 10^3/ul RBC (3.5-6.1) 10^6/uL Hgb (14.0-18.0) g/dL Hct (42.0-52.0) % MCV (80.0-105.0) fl MCH (25.0-35.0) pg MCHC (31.0-37.0) g/dl RDW (11.5-14.5) % Plt Count (120.0-450.0) 10^3/uL Gran % (50.0-68.0) % Lymph % (Auto) (22.0-35.0) % Ware % (Auto) (1.0-6.0) % Eos % (Auto) (1.5-5.0) % Baso % (Auto) (0.0-3.0) % Gran # (1.4-6.5) Lymph # (Auto) (1.2-3.4) Ware # (Auto) (0.1-0.6) Eos # (Auto) (0.0-0.7) Baso # (Auto) (0.0-2.0) K/mm3 pCO2 (35-45) mm/Hg pO2 (80-100) mm/Hg HCO3 (21-28) mmol/L ABG pH (7.35-7.45) ABG Total CO2 (22-28) mmol.L ABG O2 Saturation (95-98) % ABG O2 Content (15-23) ML/dl ABG Base Excess (-2.0-3.0) mmol/L ABG Hemoglobin (11.7-17.4) g/dL ABG Carboxyhemoglobin (0.5-1.5) % POC ABG HHb (Measured) (0-5) % ABG Methemoglobin (0.0-3.0) % ABG O2 Capacity (16-24) mL/dl Hgb O2 Saturation (95.0-98.0) % FiO2 % Sodium (132-148) mmol/L Potassium (3.6-5.0) mmol/L Chloride (98-107) mmol/L Carbon Dioxide (21-33) mmol/L Anion Gap (10-20) BUN (7-21) mg/dL Creatinine (0.8-1.5) mg/dl Est GFR ( Amer) Est GFR (Non-Af Amer) POC Glucose (mg/dL) 193 H 157 H (65-110) mg/dL Random Glucose (70-110) mg/dL Calcium (8.4-10.5) mg/dL Phosphorus (2.5-4.5) mg/dL Magnesium (1.7-2.2) mg/dL Total Bilirubin (0.2-1.3) mg/dL AST (17-59) U/L ALT (7-56) U/L Alkaline Phosphatase (38-126) U/L Total Protein (5.8-8.3) g/dL Albumin (3.0-4.8) g/dL Globulin gm/dL Albumin/Globulin Ratio (1.1-1.8) Laboratory Results - last 24 hr 05/18/18 05/18/18 05/18/18 07:24 10:54 16:16 WBC RBC Hgb Hct MCV MCH MCHC RDW Plt Count Gran % Lymph % (Auto) Ware % (Auto) Eos % (Auto) Baso % (Auto) Gran # Lymph # (Auto) Ware # (Auto) Eos # (Auto) Baso # (Auto) pCO2 pO2 HCO3 ABG pH ABG Total CO2 ABG O2 Saturation ABG O2 Content ABG Base Excess ABG Hemoglobin ABG Carboxyhemoglobin POC ABG HHb (Measured) ABG Methemoglobin ABG O2 Capacity Hgb O2 Saturation FiO2 Sodium Potassium Chloride Carbon Dioxide Anion Gap BUN Creatinine Est GFR ( Amer) Est GFR (Non-Af Amer) POC Glucose (mg/dL) 157 H 193 H 223 H Random Glucose Calcium Phosphorus Magnesium Total Bilirubin AST ALT Alkaline Phosphatase Total Protein Albumin Globulin Albumin/Globulin Ratio 05/18/18 05/19/18 05/19/18 22:14 05:10 05:45 WBC 9.3 RBC 3.93 Hgb 7.9 L Hct 29.2 L MCV 74.3 L MCH 20.1 L MCHC 27.1 L RDW 24.6 H Plt Count 208 Gran % 59.6 Lymph % (Auto) 25.6 Ware % (Auto) 13.9 H Eos % (Auto) 0.8 L Baso % (Auto) 0.1 Gran # 5.56 Lymph # (Auto) 2.4 Ware # (Auto) 1.3 H Eos # (Auto) 0.1 Baso # (Auto) 0.01 pCO2 58 H pO2 56.0 L HCO3 42.2 H* ABG pH 7.47 H ABG Total CO2 44.0 H ABG O2 Saturation 95.1 ABG O2 Content 9.6 L ABG Base Excess 16.8 H ABG Hemoglobin 7.3 L ABG Carboxyhemoglobin 2.5 H POC ABG HHb (Measured) 4.8 ABG Methemoglobin 0.0 ABG O2 Capacity 10.1 L Hgb O2 Saturation 92.7 L FiO2 40.0 Sodium Potassium Chloride Carbon Dioxide Anion Gap BUN Creatinine Est GFR ( Amer) Est GFR (Non-Af Amer) POC Glucose (mg/dL) 189 H Random Glucose Calcium Phosphorus Magnesium Total Bilirubin AST ALT Alkaline Phosphatase Total Protein Albumin Globulin Albumin/Globulin Ratio 05/19/18 05/19/18 05/19/18 05:45 07:52 11:04 WBC RBC Hgb Hct MCV MCH MCHC RDW Plt Count Gran % Lymph % (Auto) Ware % (Auto) Eos % (Auto) Baso % (Auto) Gran # Lymph # (Auto) Ware # (Auto) Eos # (Auto) Baso # (Auto) pCO2 pO2 HCO3 ABG pH ABG Total CO2 ABG O2 Saturation ABG O2 Content ABG Base Excess ABG Hemoglobin ABG Carboxyhemoglobin POC ABG HHb (Measured) ABG Methemoglobin ABG O2 Capacity Hgb O2 Saturation FiO2 Sodium 147 Potassium 3.9 Chloride 99 Carbon Dioxide 40 H Anion Gap 12 BUN 48 H Creatinine 1.0 Est GFR ( Amer) > 60 Est GFR (Non-Af Amer) > 60 POC Glucose (mg/dL) 137 H 164 H Random Glucose 121 H Calcium 8.7 Phosphorus 3.0 Magnesium 1.9 Total Bilirubin 0.7 AST 35 ALT 30 Alkaline Phosphatase 262 H Total Protein 6.1 Albumin 2.9 L Globulin 3.2 Albumin/Globulin Ratio 0.9 L 05/19/18 05/19/18 13:20 14:15 WBC RBC Hgb 8.1 L Hct MCV MCH MCHC RDW Plt Count Gran % Lymph % (Auto) Ware % (Auto) Eos % (Auto) Baso % (Auto) Gran # Lymph # (Auto) Ware # (Auto) Eos # (Auto) Baso # (Auto) pCO2 63 H pO2 58.0 L HCO3 39.9 H ABG pH 7.41 ABG Total CO2 41.8 H ABG O2 Saturation 93.7 L ABG O2 Content 9.9 L ABG Base Excess 13.6 H ABG Hemoglobin 7.7 L ABG Carboxyhemoglobin 2.0 H POC ABG HHb (Measured) 6.1 H ABG Methemoglobin 0.9 ABG O2 Capacity 10.6 L Hgb O2 Saturation 91.0 L FiO2 28.0 Sodium Potassium Chloride Carbon Dioxide Anion Gap BUN Creatinine Est GFR ( Amer) Est GFR (Non-Af Amer) POC Glucose (mg/dL) Random Glucose Calcium Phosphorus Magnesium Total Bilirubin AST ALT Alkaline Phosphatase Total Protein Albumin Globulin Albumin/Globulin Ratio Critical Care Progress Note - Nutrition Nutrition: Nutrition Category Date Time Status Heart Healthy Diet [DIET] Diets 05/19/18 Lunch Active Attending/Attestation - Attestation I have personally seen and examined this patient.: Yes I have fully participated in the care of the patient.: Yes I have reviewed all pertinent clinical information: Yes Notes (Text): 05/19/18 16:38 52 yo with OHS, COPD, acute on chronic respiratory insufficiency, now substantially improved, ABG showed reolution of respiratory acidosis >2 hrs off of BPAP. CXR-->re-expansion of left lung. Still large pleural effusion on a right side, but patient continues to diurese well (>2L overnight with creatinine 1.0 down from 1.1), thus will hold on thoracenthesis. Needs NC for fi02 supplementation, BPAP at night, ICS/LABA/LAMA, taper steroids, OOB to chair , aggressive chest PT, PT, IS, postural drainage. DVT/GI prophylaxis ccm time 40 min
[2018-05-19 13:31] LABS: ARTERIAL BLOOD GAS HCO3 39.9 mmol/L (21-28); ARTERIAL BLOOD GAS HEMOGLOBIN 7.7 g/dL (11.7-17.4); ARTERIAL BLOOD GAS O2 CAPACITY 10.6 mL/dl (16-24); ARTERIAL BLOOD GAS O2 CONTENT 9.9 ML/dl (15-23); ARTERIAL BLOOD GAS O2 SAT 93.7 % (95-98); ARTERIAL BLOOD GAS PCO2 63 mm/Hg (35-45); ARTERIAL BLOOD GAS PH 7.41 (7.35-7.45); ARTERIAL BLOOD GAS TCO2 41.8 mmol.L (22-28)
--- NOTE | 2018-05-19 17:02 | PN ---
Copied To: Randall Mcwilliams MD Attending MD: Randall Mcwilliams MD DATE: 05/19/2018 SUBJECTIVE: The patient is seen and examined at bedside. He is comfortable. He talks full sentences. He is not in respiratory or otherwise distress. Chest x-ray showed reexpansion of the left lung. Some haziness in the right lower lobe, which on bedside ultrasound examination appears to be logical effusion with some compression atelectasis. The patient subjectively is doing better. PHYSICAL EXAMINATION: VITAL SIGNS: Blood pressure 169/106, heart rate 98, oxygen saturation 98% on 2 L nasal cannula. HEENT: Head and neck atraumatic. LUNGS: Improved air entry on the left side and decreased breath sounds on the right side. HEART: Regular rate and rhythm. S1 and S2 normal. ABDOMEN: Soft, nontender, nondistended. MUSCULOSKELETAL: 1+ bilateral pedal and ankle edema. NEURO: The patient moves all extremities spontaneously. SKIN: Moist. PSYCH: The patient is alert and oriented x3. LABORATORY DATA: WBC 9.3, hemoglobin 7.9, and platelet count 208. Sodium 147, potassium 3.9, chloride 99, carbon dioxide 40. BUN 48, creatinine 1 down from 1.1. Glucose 164. AST 35, ALT 30, and total bilirubin 0.7. MEDICATIONS: Brovana, aspirin, Lipitor, budesonide, Coreg, clonidine, Lasix 40 mg IV every 12 hours, Glucotrol, Robitussin p.r.n., heparin, lisinopril, meropenem, Solu-Medrol 30 mg IV daily, Protonix, milrinone, Aldactone. Chest x-ray showed improvement in the left sided opacification. There is no change in the right-sided perihilar infiltrate or vascular congestion based on official report. ASSESSMENT AND PLAN: This 52-year-old gentleman who presented with now substantially improved hypercapnic respiratory failure. His blood gas showed resolution of acute respiratory acidosis. However, that ABG was done on BiPAP. We will switch him off of BiPAP to nasal cannula and repeat ABG to make sure he is able to sustain spontaneous ventilation adequately. His left lung appears to be re-expanded after vigorous chest PT, incentive spirometry, postural drainage, bronchodilators therapy. If the patient's blood gas showed that ventilatory status is maintained acceptably spontaneously , the patient will be transferred to telemetry. In terms of his cardiovascular status/biventricular failure, the patient is on milrinone, lisinopril, and continued diuresis. He made more than 2 L overnight of urine. We will continue maintain euvolemia, euglycemia, normothermia, and oxygen saturation more than 90%. We will continue with deep vein thrombosis, gastrointestinal prophylaxis. Addendum: patient's ABG off of BPAP is 7.41/63/58/91. Alert, awake and oriented x 3, maintain oral nutrition and hydration, needs NC 2-4 L/min, hemodynamically and respiratory alvarado stable. Protecting airways. Continue pulm toilet, chest PT , IS, postural drainage, bronchodilators, steroid taper, BPAP at night. Milrinone, ACEI and diuretics up to cardiology service discretion. Ok to downgrade to tele. Please reconsult Pulmonary service if clinical situation deteriorates, including but not limited to respiratory distress, hypoxemia, hypotension, airway compromize and inability to protect airways. Discussed with primary medical team ccm time 40 min Randall Mcwilliams MD KAMALA
--- NOTE | 2018-05-19 22:25 | CP.PCM.PN ---
Subjective - Date & Time of Evaluation Date of Evaluation: 05/19/18 Time of Evaluation: 22:06 - Subjective Subjective: pt seen and examined. he is awake and alert, conversing with a visitor at bedside. Denies any new complaints. Objective - Vital Signs/Intake and Output Vital Signs (last 24 hours): Temp Pulse Resp BP Pulse Ox 98.8 F 89 20 165/81 H 98 05/19/18 18:00 05/19/18 18:00 05/19/18 18:00 05/19/18 18:00 05/19/18 18:00 Intake and Output: 05/19/18 05/20/18 18:59 06:59 Intake Total 1161 Output Total 2150 Balance -989 - Medications Medications: Current Medications Albuterol/Ipratropium (Duoneb 3 Mg/0.5 Mg (3 Ml) Ud) 3 ml IH Q2H PRN PRN Reason: Shortness of Breath Arformoterol Tartrate (Brovana) 15 mcg IH [id number] [facility] Last Admin: 05/19/18 20:44 Dose: 15 mcg Aspirin (Aspirin Chewable) 81 mg PO DAILY [facility] Last Admin: 05/19/18 09:41 Dose: 81 mg Atorvastatin Calcium (Lipitor) 20 mg PO HS [facility] Last Admin: 05/18/18 22:50 Dose: 20 mg Budesonide (Pulmicort Respules) 0.5 mg IH [id number] [facility] Last Admin: 05/19/18 20:45 Dose: 0.5 mg Carvedilol (Coreg) 12.5 mg PO BID [facility] Last Admin: 05/19/18 17:30 Dose: 12.5 mg Clonidine HCl (Catapres) 0.2 mg PO BID [facility] Last Admin: 05/19/18 17:32 Dose: 0.2 mg Dextrose (Dextrose 50% Inj) 0 ml IV STAT PRN; Protocol PRN Reason: Hypoglycemia Protocol Docusate Sodium (Colace) 100 mg PO TID [facility] Last Admin: 05/19/18 17:33 Dose: 100 mg Ferrous Sulfate (Feosol Liq) 300 mg PO TID [facility] Last Admin: 05/19/18 17:34 Dose: 300 mg Furosemide (Lasix) 40 mg IVP Q12 [facility] Last Admin: 05/19/18 09:43 Dose: 40 mg Glipizide (Glucotrol) 5 mg PO ACB [facility] Last Admin: 05/19/18 09:42 Dose: 5 mg Guaifenesin (Robitussin) 100 mg PO Q4H PRN PRN Reason: Cough Heparin Sodium (Porcine) (Heparin) 5,000 units SC Q8 [facility] PRN Reason: Protocol Last Admin: 05/19/18 14:02 Dose: 5,000 units Meropenem (Merrem Iv 1 Gm Premix) 50 mls @ 100 mls/hr IVPB Q8 [facility] PRN Reason: Protocol Stop: 05/25/18 19:01 Last Admin: 05/19/18 15:16 Dose: 100 mls/hr Milrinone Lactate/Dextrose (Primacor 20mg/100ml D5w) 100 mls @ 17.146 mls/hr IV .Q5H50M PRN; Protocol; 0.375 MCG/KG/MIN PRN Reason: TITRATE PER MD ORDER Last Admin: 05/19/18 15:17 Dose: 0.375 mcg/kg/min, 17.146 mls/hr Insulin Human Regular (Humulin R) 0 units SC ACHS [facility] PRN Reason: Protocol Last Admin: 05/19/18 17:29 Dose: 1 unit Ipratropium [place] (Atrovent) 0.5 mg IH [id number] [facility] Last Admin: 05/19/18 20:48 Dose: 0.5 mg Lisinopril (Zestril) 2.5 mg PO DAILY [facility] Last Admin: 05/19/18 09:40 Dose: 2.5 mg Methylprednisolone (Solu-Medrol) 30 mg IVP DAILY [facility] Ondansetron HCl (Zofran Tab) 4 mg PO Q8H PRN PRN Reason: Nausea/Vomiting Pantoprazole Sodium (Protonix Ec Tab) 40 mg PO DAILY [facility] Last Admin: 05/19/18 09:42 Dose: 40 mg Polyethylene Glycol (Miralax) 17 gm PO DAILY [facility] Last Admin: 05/19/18 09:43 Dose: 17 gm Spironolactone (Aldactone) 25 mg PO DAILY [facility] Last Admin: 05/19/18 09:43 Dose: 25 mg - Labs Labs: 05/19/18 14:15 05/19/18 05:45 PT 21.4 SECONDS (9.4-12.5) H 05/09/18 17:00 INR 1.85 05/09/18 17:00 APTT 30.9 Seconds (25.1-36.5) 05/09/18 17:00 - Constitutional Appears: Well, Non-toxic, No Acute Distress - Head Exam Head Exam: ATRAUMATIC - Eye Exam Eye Exam: Conjunctival injection, EOMI Pupil Exam: NORMAL ACCOMODATION, PERRL - ENT Exam ENT Exam: Mucous Membranes Moist, Normal Exam - Neck Exam Neck Exam: Full ROM, Normal Inspection. absent: Lymphadenopathy - Respiratory Exam Respiratory Exam: Rhonchi (b/l lower lung cano), NORMAL BREATHING PATTERN. absent: Chest Wall Tenderness, Wheezes, Respiratory Distress, Stridor - Cardiovascular Exam Cardiovascular Exam: REGULAR RHYTHM, +S1, +S2. absent: Murmur - GI/Abdominal Exam GI & Abdominal Exam: Distended (softly distended), Soft, Normal Bowel Sounds. absent: Tenderness - Extremities Exam Extremities Exam: Full ROM, Normal Capillary Refill, Normal Inspection. absent : Joint Swelling, Pedal Edema - Back Exam Back Exam: NORMAL INSPECTION - Additional Findings Additional findings: A/P c/w current medical management. Reinforced BiPap overnight. will monitor pt closely
[2018-05-20] MEDS: Ipratropium 0.02% Inhal Soln (0.5 mg/2.5 ml) UD IH SCH ×4 (02:00→20:50)
[2018-05-20] MEDS: Milrinone 20mg/100ml D5W 100 ML IV PRN ×4 (03:01→21:37)
[2018-05-20] MEDS: Meropenem IV 1 gm in NS 50 ML IVPB SCH ×4 (06:24→21:30)
[2018-05-20 07:17] LABS: EOS # 0.1 (0.0-0.7); EOS % 1.6 % (1.5-5.0); GRAN # 5.03 (1.4-6.5); LYMPH % 33.8 % (22.0-35.0); MEAN CELL VOLUME 75.3 fl (80.0-105.0); MEAN CORPUSCULAR HEMOGLOBIN 20.2 pg (25.0-35.0); MEAN CORPUSCULAR HGB CONC 26.8 g/dl (31.0-37.0); MONO # 0.8 (0.1-0.6); MONO % 8.6 % (1.0-6.0); PLATELET COUNT 202 10^3/uL (120.0-450.0); RBC 3.97 10^6/uL (3.5-6.1); RED CELL DISTRIBUTION WIDTH 25.1 % (11.5-14.5)
[2018-05-20 08:43] LABS: ALT/SGPT 38 U/L (7-56); AST/SGOT 46 U/L (17-59); BLOOD UREA NITROGEN 45 mg/dL (7-21); CALCIUM 8.5 mg/dL (8.4-10.5); GFR NON-AFRICAN AMERICAN > 60
--- NOTE | 2018-05-20 08:43 | CP.PCM.PN ---
<Cristino Garcias - Last Filed: 05/20/18 17:46> Subjective - Date & Time of Evaluation Date of Evaluation: 05/20/18 Time of Evaluation: 08:37 - Subjective Subjective: Internal Medicine Progress Note for Dr. Sneha Garcias PGY1 52M seen and evaluated at bedside this morning. Overnight, security was called because patient had a visitor who brought him a concealed item possibly illicit drugs. Patient urinated and excreted feces on the floor of his room. Noncompliant with BIPAP overnight. Patient has no complaints at this time except that he is cold. He is tolerating his diet. Denies fever, chills, nausea , vomiting, shortness of breath, headache, dizziness, chest pain, palpitations, or urinary symptoms. Objective - Vital Signs/Intake and Output Vital Signs (last 24 hours): Temp Pulse Resp BP Pulse Ox 97.6 F 88 20 154/94 H 97 05/20/18 06:00 05/20/18 06:00 05/20/18 06:00 05/20/18 06:00 05/20/18 06:00 Intake and Output: 05/20/18 05/20/18 06:59 18:59 Intake Total 765 Output Total 1395 Balance -630 - Medications Medications: Current Medications Albuterol/Ipratropium (Duoneb 3 Mg/0.5 Mg (3 Ml) Ud) 3 ml IH Q2H PRN PRN Reason: Shortness of Breath Arformoterol Tartrate (Brovana) 15 mcg IH [id number] [facility] Last Admin: 05/19/18 20:44 Dose: 15 mcg Aspirin (Aspirin Chewable) 81 mg PO DAILY [facility] Last Admin: 05/19/18 09:41 Dose: 81 mg Atorvastatin Calcium (Lipitor) 20 mg PO HS [facility] Last Admin: 05/19/18 23:12 Dose: 20 mg Budesonide (Pulmicort Respules) 0.5 mg IH [id number] [facility] Last Admin: 05/19/18 20:45 Dose: 0.5 mg Carvedilol (Coreg) 12.5 mg PO BID [facility] Last Admin: 05/19/18 17:30 Dose: 12.5 mg Clonidine HCl (Catapres) 0.2 mg PO BID [facility] Last Admin: 05/19/18 17:32 Dose: 0.2 mg Dextrose (Dextrose 50% Inj) 0 ml IV STAT PRN; Protocol PRN Reason: Hypoglycemia Protocol Docusate Sodium (Colace) 100 mg PO TID [facility] Last Admin: 05/19/18 17:33 Dose: 100 mg Ferrous Sulfate (Feosol Liq) 300 mg PO TID [facility] Last Admin: 05/19/18 17:34 Dose: 300 mg Furosemide (Lasix) 40 mg IVP Q12 [facility] Last Admin: 05/19/18 23:11 Dose: 40 mg Glipizide (Glucotrol) 5 mg PO ACB [facility] [place] Last Admin: 05/19/18 09:42 Dose: 5 mg Guaifenesin (Robitussin) 100 mg PO Q4H PRN PRN Reason: Cough Heparin Sodium (Porcine) (Heparin) 5,000 units SC Q8 [facility] PRN Reason: Protocol Last Admin: 05/20/18 06:23 Dose: 5,000 units Meropenem (Merrem Iv 1 Gm Premix) 50 mls @ 100 mls/hr IVPB Q8 [facility] PRN Reason: Protocol Stop: 05/25/18 19:01 Last Admin: 05/20/18 06:24 Dose: 100 mls/hr Milrinone Lactate/Dextrose (Primacor 20mg/100ml D5w) 100 mls @ 17.146 mls/hr IV .Q5H50M PRN; Protocol; 0.375 MCG/KG/MIN PRN Reason: TITRATE PER MD ORDER Last Admin: 05/20/18 03:01 Dose: 0.375 mcg/kg/min, 17.146 mls/hr Insulin Human Regular (Humulin R) 0 units SC ACHS [facility] PRN Reason: Protocol Last Admin: 05/19/18 23:13 Dose: Not Given Ipratropium Hunter (Atrovent) 0.5 mg IH [id number] [facility] [place] Last Admin: 05/20/18 02:00 Dose: 0.5 mg Lisinopril (Zestril) 2.5 mg PO DAILY [facility] [place] Last Admin: 05/19/18 09:40 Dose: 2.5 mg Methylprednisolone (Solu-Medrol) 30 mg IVP DAILY [facility] Ondansetron HCl (Zofran Tab) 4 mg PO Q8H PRN PRN Reason: Nausea/Vomiting Pantoprazole Sodium (Protonix Ec Tab) 40 mg PO DAILY [facility] [place] Last Admin: 05/19/18 09:42 Dose: 40 mg Polyethylene Glycol (Miralax) 17 gm PO DAILY [facility] [place] Last Admin: 05/19/18 09:43 Dose: 17 gm Spironolactone (Aldactone) 25 mg PO DAILY [facility] [place] Last Admin: 05/19/18 09:43 Dose: 25 mg - Labs Labs: 05/20/18 06:30 05/19/18 05:45 PT 21.4 SECONDS (9.4-12.5) H 05/09/18 17:00 INR 1.85 05/09/18 17:00 APTT 30.9 Seconds (25.1-36.5) 05/09/18 17:00 - Constitutional Appears: Well, Non-toxic, No Acute Distress, Agitated - Head Exam Head Exam: ATRAUMATIC, NORMAL INSPECTION, NORMOCEPHALIC - Eye Exam Eye Exam: EOMI Pupil Exam: PERRL - ENT Exam ENT Exam: Mucous Membranes Dry - Respiratory Exam Respiratory Exam: Clear to Ausculation Bilateral. absent: Accessory Muscle Use , Wheezes, Respiratory Distress - Cardiovascular Exam Cardiovascular Exam: REGULAR RHYTHM. absent: Murmur - GI/Abdominal Exam GI & Abdominal Exam: Soft, Normal Bowel Sounds. absent: Tenderness - Extremities Exam Extremities Exam: absent: Calf Tenderness, Pedal Edema - Neurological Exam Neurological Exam: Alert, Awake - Psychiatric Exam Psychiatric exam: Agitated Assessment and Plan - Assessment and Plan (Free Text) Assessment: This is a 52 year old male with PMH of CHF, DM, COPD, CAD with stents, gout, HTN , and HLD, presented to the ED with shortness of breath, admitted for management of acute hypercapnic respiratory failure 2/2 COPD exacerbation and acute on chronic systolic CHF. Plan: Acute hypercapnic respiratory failure 2/2 COPD exacerbation - Improving, however patient noncompliant with BiPAP overnight. Will continue to monitor closely. - Continue with chest PT, mucomyst, bronchodilators and steroids - CT chest (05/16): complete left lung collapse with volume loss secondary to endobronchial lesion vs. secretins in the distal left mainstem bronchus. Large right and small to moderate left pleural effusions. Diffuse anasarca with extensive abdominal body wall edema - Patient may need bronchoscopy in the near future Acute on chronic systolic CHF - CXR (05/20): improved RLL infiltrate, moderate vascular congestion - Continue with lasix 40mg IV q12 and aldactone 25mg - Continue milrinone drip - Monitor Is & Os and daily weights - Echo on 05/10 showed mild concentric LVH, systolic function moderately impaired , septal hypokinesis, mild MR, moderate TR, mild pulmonary HTN, aortic root mildly enlarged - Continue Coreg, Lasix, Lisinopril, and Aldactone - Cardiology, Dr. Syed consulted, recommendations appreciated HCAP - WBC today is 9.0 today from 9.3, afebrile - CXR (05/20): improved RLL infiltrate, moderate vascular congestion - Currently Merrem Day 5 - Discontinued vancomycin - Blood and sputum cultures negative - MRSA not detected - ID, Dr. Groves consulted, further recommendations appreciated COPD Exacerbation - Continue with chest PT, mucomyst, bronchodilators and steroids - Will Taper steroids - Pulmonology following, recommendations appreciated HIV, newly diagnosed - HIV 1 positive - CD4 747 - ID, Dr. Groves consulted, further recommendations appreciated Anasarca - Likely 2/2 CHF exacerbation, improving - Testicular US is significant for diffuse scrotal wall edema, small B/L hydroceles - Urology consulted, Dr. Zimmerman: Recommendations include scrotum elevation, diuresis Hx of CAD - Cardiac cath in 12/2017 revealed EF 30% and LAD lesion 80% - Trop negative x2 on 05/09 - ASA 81, coreg 12.5mg BID - Cardiology, Dr. Syed consulted, recommendations appreciated Hx of Diabetes - ISS - Accuchecks - Hypoglycemia protocol - glipizide 5mg, insulin human regualar ACHS PPX GI: Protonix DVT: Heparin Diet: HHD Patient seen, case reviewed by and discussed with attending, Dr. Pawel Garcias PGY1 <Sneha Armas R - Last Filed: 05/21/18 12:57> Objective - Vital Signs/Intake and Output Vital Signs (last 24 hours): Temp Pulse Resp BP Pulse Ox 97.9 F 100 H 20 130/80 98 05/21/18 12:00 05/21/18 12:00 05/21/18 12:00 05/21/18 12:00 05/21/18 06:00 Intake and Output: 05/21/18 05/21/18 06:59 18:59 Intake Total 740 100 Output Total 2100 Balance -1360 100 - Medications Medications: Current Medications Albuterol/Ipratropium (Duoneb 3 Mg/0.5 Mg (3 Ml) Ud) 3 ml IH Q2H PRN PRN Reason: Shortness of Breath Arformoterol Tartrate (Brovana) 15 mcg IH [id number] [facility] Last Admin: 05/21/18 07:42 Dose: 15 mcg Aspirin (Aspirin Chewable) 81 mg PO DAILY [facility] [place] Last Admin: 05/21/18 11:19 Dose: 81 mg Atorvastatin Calcium (Lipitor) 20 mg PO HS [facility] Last Admin: 05/20/18 21:21 Dose: 20 mg Budesonide (Pulmicort Respules) 0.5 mg IH [id number] [facility] Last Admin: 05/21/18 07:42 Dose: 0.5 mg Carvedilol (Coreg) 12.5 mg PO BID [facility] Last Admin: 05/21/18 11:18 Dose: 12.5 mg Clonidine HCl (Catapres) 0.2 mg PO BID [facility] Last Admin: 05/21/18 11:18 Dose: 0.2 mg Dextrose (Dextrose 50% Inj) 0 ml IV STAT PRN; Protocol PRN Reason: Hypoglycemia Protocol Docusate Sodium (Colace) 100 mg PO TID [facility] Last Admin: 05/21/18 11:17 Dose: 100 mg Ferrous Sulfate (Feosol Liq) 300 mg PO TID [facility] Last Admin: 05/21/18 11:17 Dose: 300 mg Furosemide (Lasix) 40 mg IVP Q12 [facility] Last Admin: 05/21/18 11:20 Dose: 40 mg Glipizide (Glucotrol) 5 mg PO ACB [facility] Last Admin: 05/21/18 09:19 Dose: 5 mg Guaifenesin (Robitussin) 100 mg PO Q4H PRN PRN Reason: Cough Heparin Sodium (Porcine) (Heparin) 5,000 units SC Q8 [facility] PRN Reason: Protocol Last Admin: 05/21/18 06:46 Dose: 5,000 units Meropenem (Merrem Iv 1 Gm Premix) 50 mls @ 100 mls/hr IVPB Q8 [facility] PRN Reason: Protocol Stop: 05/25/18 19:01 Last Admin: 05/21/18 06:54 Dose: Not Given Milrinone Lactate/Dextrose (Primacor 20mg/100ml D5w) 100 mls @ 17.146 mls/hr IV .Q5H50M PRN; Protocol; 0.375 MCG/KG/MIN PRN Reason: TITRATE PER MD ORDER Last Admin: 05/21/18 09:32 Dose: 0.375 mcg/kg/min, 17.146 mls/hr Insulin Human Regular (Humulin R) 0 units SC ACHS [facility] PRN Reason: Protocol Last Admin: 05/21/18 12:29 Dose: 1 unit Ipratropium Hunter (Atrovent) 0.5 mg IH [id number] [facility] Last Admin: 05/21/18 07:42 Dose: 0.5 mg Lisinopril (Zestril) 2.5 mg PO DAILY [facility] Last Admin: 05/21/18 11:18 Dose: 2.5 mg Methylprednisolone (Solu-Medrol) 30 mg IVP DAILY [facility] Last Admin: 05/21/18 11:19 Dose: 30 mg Ondansetron HCl (Zofran Tab) 4 mg PO Q8H PRN PRN Reason: Nausea/Vomiting Pantoprazole Sodium (Protonix Ec Tab) 40 mg PO DAILY [facility] Last Admin: 05/21/18 11:17 Dose: 40 mg Polyethylene Glycol (Miralax) 17 gm PO DAILY [facility] [place] Last Admin: 05/21/18 11:17 Dose: 17 gm Spironolactone (Aldactone) 25 mg PO DAILY [facility] [place] Last Admin: 05/21/18 11:18 Dose: 25 mg - Labs Labs: 05/21/18 10:36 05/21/18 10:36 PT 21.4 SECONDS (9.4-12.5) H 05/09/18 17:00 INR 1.85 05/09/18 17:00 APTT 30.9 Seconds (25.1-36.5) 05/09/18 17:00 Attending/Attestation - Attestation I have personally seen and examined this patient.: Yes I have fully participated in the care of the patient.: Yes I have reviewed all pertinent clinical information, including history, physical exam and plan: Yes Notes (Text): Patient seen and examined by me at 10:05AM with resident 05/20/18. Case including HPI, physical exam, and assessment and plan discussed with resident. Agree with above with following additions/corrections. Patient is a 52 year old male with past medical history significant for COPD, CAD, CHF, DM2, HTN, hperlipidemia, lumbar radiculopathy, and gout that presented to the emergency room with shortness of breath. Patient states he is feeling ok. States is shortness of breath is "fine." States he does not think he used the BIPAP machine over night. Denies coughing today. No chest pain or palpitations. No headache or dizziness. No fevers or chills. No nausea, vomiting, or abdominal pain. No dysuria. Patient is having bowel movements. Physical exam: Gen: Awake and alert sitting up in chair in no acute distress HEENT: Normocephalic, atraumatic. Extraocular muscles intact, pupils equal reactive. No scleral icterus. Oropharynx is pink and moist. Neck is supple. Cardiovascular: Normal rhythm. Normal S1, S2. No murmurs, rubs, or gallops appreciated Pulmonary: Respiratory effort improved. No use of accessory muscles. Decreased breath sounds. No rhonchi, rales, or wheezing appreciated. Gastrointestinal: Soft, nontender, distended. Globular abdomen. Positive bowel sounds all 4 quadrants, no guarding. Musculoskeletal: Moves all extremities. No calf tenderness. Positive lower extremity pitting edema Central nervous system: AAO x 3. Dermatologic: Skin warm and dry, bilateral lower extremity chronic stasis color changes. Assessment and plan: Patient is a 52 year old male with past medical history significant for COPD, CAD, CHF, DM2, HTN, hperlipidemia, lumbar radiculopathy, and gout that presented to the emergency room with shortness of breath. 1. Acute respiratory failure. CO2 narcosis. Improved. Continue with BIPAP. Chest xray per radiologist shows moderate vascular congestion, improved right lower lobe infiltrate. Continue Chest PT. Follow up repeat chest xray in AM. Follow up repeat ABG tomorrow. 2. Complete opacification of left lung on chest xray. Resolved. Chest xray today per radiologist shows moderate vascular congestion, improved right lower lobe infiltrate. Continue Lasix 40 mg IV every 12 hours. Continue Aldactone. Continue milrinone drip. Continue to monitor ins and outs. Continue chest PT. 3. Healthcare acquired pneumonia. ID following, recommendations appreciated. Continue vancomycin and meropenem, day #5. Continue guaifenesin as needed. Continue nebulizer treatments. 4. Respiratory distress. Multifactorial. Secondary to acute on chronic systolic CHF exacerbation, COPD, and non compliance with medications, CO2 narcosis and left lung opacification, pleural effusions, and healthcare acquired pneumonia. Continue with milrinone drip. Continue Coreg, Lasix, Lisinopril, and Aldactone. Continue to monitor I's and O's. Continue to monitor daily weights. Cardiology following, recommendations appreciated 5. COPD exacerbation. Continue with BiPAP. Taper Solu-Medrol. Continue Brovana, Pulmicort, and nebulizer treatments. Continue O2 via nasal cannula. Pulmonary following, recommendations appreciated. 6. Medication noncompliance. Importance of compliance discussed with patient at length. Continue to encourage use of BIPAP. Palliative care consulted. Psychiatry following, recommendations appreciated. 7. HIV 1 antibody positive, HIV fourth generation positive, likely false positive. CD4 count 747. Viral load not detected. ID following, recommendations appreciated. 8. Abnormal urinalysis. ID following, recommendations appreciated. S/P antibiotic treatment. 9. CAD s/p stent placement. Patient non-compliant with medications and follow up with doctors. Contine Coreg, ASA, Lisinopril and Lipitor. 10. Hypertension. Continue Clonidine, lasix, Lisinopril, and Coreg. Continue milrinone drip 11. DM2. Continue insulin sliding scale and glipizide. Continue to monitor accuchecks. 12. Hyperlipidemia. Continue Lipitor 13. Chronic anemia. No signs of acute bleeding. H&H downtrended. Stool for occult blood was negative .Continue to monitor. Continue ferrous sulfate 14. Scrotal edema. Likely secondary to anasarca from decompensated CHF. Testicular ultrasound per radiologist shows diffuse scrotal wall edema, no drainable fluid collection, small bilateral hydroceles, no evidence for testicular torsion or mass. Urology following, recommendations appreciated. 15. GI/DVT prophylaxis. Protonix and heparin Case was discussed in detail with the patient regarding current diagnosis and treatment plan.
[2018-05-20] MEDS: Arformoterol 15 mcg/2 ml Inh Sol IH SCH ×3 (08:50→20:50)
[2018-05-20] MEDS: Budesonide 0.5 mg/2 ml Inhal Susp UD IH SCH ×3 (08:50→20:50)
[2018-05-20] MEDS: Insulin Regular 1 UNITS/0.01 ML ML SC SCH ×4 (09:11→21:32)
[2018-05-20] MEDS: MethylPREDNISolone 40 mg Vial IVP SCH (09:27)
[2018-05-20] MEDS: POLYETHYLENE GLYCOL 3350 17 GM/Dose PACKET PO SCH ×2 (09:27→09:43)
[2018-05-20] MEDS: Ferrous Sulfate 300 mg/5 mL Liq UD PO SCH ×3 (09:27→18:02)
[2018-05-20] MEDS: Pantoprazole 40 mg EC Tab PO SCH (09:28)
--- NOTE | 2018-05-20 10:16 | RAD ---
Date of service: 05/20/2018 HISTORY: atelectasis COMPARISON: 05/19/2018 FINDINGS: LUNGS: Moderate vascular congestion. Improved right lower lobe infiltrate PLEURA: No significant pleural effusion identified, no pneumothorax apparent. CARDIOVASCULAR: Normal. OSSEOUS STRUCTURES: No significant abnormalities. VISUALIZED UPPER ABDOMEN: Normal. OTHER FINDINGS: None. IMPRESSION: Moderate vascular congestion. Improved right lower lobe infiltrate
--- NOTE | 2018-05-20 10:26 | PCM.URO ---
Urology Progress Note - Objective Lab Studies: Reviewed (no gu changes) Lab Results Last 24 Hours: Laboratory Results - last 24 hr 05/18/18 05/18/18 05/19/18 07:24 10:54 11:04 WBC RBC Hgb Hct MCV MCH MCHC RDW Plt Count Gran % Lymph % (Auto) Sullivan % (Auto) Eos % (Auto) Baso % (Auto) Gran # Lymph # (Auto) Sullivan # (Auto) Eos # (Auto) Baso # (Auto) pCO2 pO2 HCO3 ABG pH ABG Total CO2 ABG O2 Saturation ABG O2 Content ABG Base Excess ABG Hemoglobin ABG Carboxyhemoglobin POC ABG HHb (Measured) ABG Methemoglobin ABG O2 Capacity Hgb O2 Saturation FiO2 Sodium Potassium Chloride Carbon Dioxide Anion Gap BUN Creatinine Est GFR ( Amer) Est GFR (Non-Af Amer) POC Glucose (mg/dL) 157 H 193 H 164 H Random Glucose Calcium Phosphorus Magnesium Total Bilirubin AST ALT Alkaline Phosphatase Total Protein Albumin Globulin Albumin/Globulin Ratio 05/19/18 05/19/18 05/19/18 13:20 14:15 16:05 WBC RBC Hgb 8.1 L Hct MCV MCH MCHC RDW Plt Count Gran % Lymph % (Auto) Sullivan % (Auto) Eos % (Auto) Baso % (Auto) Gran # Lymph # (Auto) Sullivan # (Auto) Eos # (Auto) Baso # (Auto) pCO2 63 H pO2 58.0 L HCO3 39.9 H ABG pH 7.41 ABG Total CO2 41.8 H ABG O2 Saturation 93.7 L ABG O2 Content 9.9 L ABG Base Excess 13.6 H ABG Hemoglobin 7.7 L ABG Carboxyhemoglobin 2.0 H POC ABG HHb (Measured) 6.1 H ABG Methemoglobin 0.9 ABG O2 Capacity 10.6 L Hgb O2 Saturation 91.0 L FiO2 28.0 Sodium Potassium Chloride Carbon Dioxide Anion Gap BUN Creatinine Est GFR ( Amer) Est GFR (Non-Af Amer) POC Glucose (mg/dL) 194 H Random Glucose Calcium Phosphorus Magnesium Total Bilirubin AST ALT Alkaline Phosphatase Total Protein Albumin Globulin Albumin/Globulin Ratio 05/19/18 05/20/18 05/20/18 21:30 06:30 06:30 WBC 9.0 RBC 3.97 Hgb 8.0 L Hct 29.9 L MCV 75.3 L MCH 20.2 L MCHC 26.8 L RDW 25.1 H Plt Count 202 Gran % 56.0 Lymph % (Auto) 33.8 Sullivan % (Auto) 8.6 H Eos % (Auto) 1.6 Baso % (Auto) 0.0 Gran # 5.03 Lymph # (Auto) 3.0 Sullivan # (Auto) 0.8 H Eos # (Auto) 0.1 Baso # (Auto) 0.00 pCO2 pO2 HCO3 ABG pH ABG Total CO2 ABG O2 Saturation ABG O2 Content ABG Base Excess ABG Hemoglobin ABG Carboxyhemoglobin POC ABG HHb (Measured) ABG Methemoglobin ABG O2 Capacity Hgb O2 Saturation FiO2 Sodium 148 Potassium 3.9 Chloride 98 Carbon Dioxide 41 H Anion Gap 13 BUN 45 H Creatinine 1.0 Est GFR ( Amer) > 60 Est GFR (Non-Af Amer) > 60 POC Glucose (mg/dL) 209 H Random Glucose 115 H Calcium 8.5 Phosphorus 3.3 Magnesium 2.0 Total Bilirubin 0.6 AST 46 ALT 38 Alkaline Phosphatase 272 H Total Protein 6.2 Albumin 3.0 Globulin 3.2 Albumin/Globulin Ratio 1.0 L 05/20/18 07:22 WBC RBC Hgb Hct MCV MCH MCHC RDW Plt Count Gran % Lymph % (Auto) Sullivan % (Auto) Eos % (Auto) Baso % (Auto) Gran # Lymph # (Auto) Sullivan # (Auto) Eos # (Auto) Baso # (Auto) pCO2 pO2 HCO3 ABG pH ABG Total CO2 ABG O2 Saturation ABG O2 Content ABG Base Excess ABG Hemoglobin ABG Carboxyhemoglobin POC ABG HHb (Measured) ABG Methemoglobin ABG O2 Capacity Hgb O2 Saturation FiO2 Sodium Potassium Chloride Carbon Dioxide Anion Gap BUN Creatinine Est GFR ( Amer) Est GFR (Non-Af Amer) POC Glucose (mg/dL) 135 H Random Glucose Calcium Phosphorus Magnesium Total Bilirubin AST ALT Alkaline Phosphatase Total Protein Albumin Globulin Albumin/Globulin Ratio Intake & Output: Intake & Output 05/19/18 05/20/18 05/20/18 18:59 06:59 18:59 Intake Total 1161 765 100 Output Total 2150 1395 Balance -989 -630 100 Weight 337 lb Intake: IV 201 525 100 Antibiotics 50 100 Left Hand 225 Right Hand 51 Oral 960 240 Output: Urine 2150 1395 Urethral (Lugo) 1550 Urine, Voided 600 1395 Emesis 0 Other: # Voids Urine, Voided 3 # Bowel Movements 0 2 Vital Signs: Vital Signs - 24 hr 05/19/18 05/19/18 05/19/18 12:00 13:00 15:21 Temperature 98.3 F Pulse Rate 94 H 94 H Respiratory 94 H 26 H Rate Blood Pressure 152/107 H 126/66 O2 Sat by Pulse 100 95 Oximetry 05/19/18 05/19/18 05/19/18 15:30 16:00 17:30 Temperature Pulse Rate 95 H 88 Respiratory Rate Blood Pressure 174/108 H 165/81 H O2 Sat by Pulse 100 Oximetry 05/19/18 05/19/18 05/19/18 17:32 18:00 20:00 Temperature 98.8 F Pulse Rate 102 H 102 H Respiratory 20 Rate Blood Pressure 165/81 H 165/81 H O2 Sat by Pulse 98 Oximetry 05/19/18 05/19/18 05/19/18 21:07 22:00 23:11 Temperature Pulse Rate 104 H 103 H Respiratory Rate Blood Pressure 129/65 O2 Sat by Pulse Oximetry 05/20/18 05/20/18 05/20/18 00:00 02:00 03:01 Temperature 98.4 F Pulse Rate 107 H 92 H 94 H Respiratory 20 Rate Blood Pressure 130/83 O2 Sat by Pulse 98 Oximetry 05/20/18 05/20/18 05/20/18 06:00 09:26 09:27 Temperature 97.6 F Pulse Rate 88 87 Respiratory 20 Rate Blood Pressure 154/94 H 139/83 139/83 O2 Sat by Pulse 97 Oximetry 05/20/18 09:28 Temperature Pulse Rate 87 Respiratory Rate Blood Pressure 139/83 O2 Sat by Pulse Oximetry
[2018-05-20 18:17] LABS: BARBITURATES, UR NEGATIVE (NEGATIVE); BENZODIAZEPINES, UR NEGATIVE (NEGATIVE); OPIATES, UR NEGATIVE (NEGATIVE); PHENCYCLIDINE, UR NEGATIVE (NEGATIVE)
--- NOTE | 2018-05-20 20:43 | PN ---
Copied To: Harris Todd MD Attending MD: Harris Todd MD DATE: 05/20/2018 SUBJECTIVE: The patient is in bed, in no acute distress, nontoxic. PHYSICAL EXAMINATION: VITAL SIGNS: Temperature is 98, blood pressure is 150/50, respiratory rate of 16. HEENT: Unremarkable. NECK: Supple. LUNGS: Have decreased breath sounds. HEART: Normal S1, S2. ABDOMEN: Soft, nontender. LABORATORY DATA: Reveals the white count is 9, hemoglobin of 8, platelets of 202. BUN of 45, creatinine of 1. Procalcitonin is 0.05, 0.09. T-cells are noted. Serology is noted. Microbiology, cultures are negative. ASSESSMENT AND PLAN: This is a 52-year-old male with morbid obesity with body mass index of 42, seen earlier today with hypoxia, hypercapnia, respiratory failure, acute decompensated congestive heart failure with chronic obstructive lung disease. I do not believe this patient has human immunodeficiency virus with a viral load that is undetectable, good T-cells. I think the Britney is false positive. Had developed sepsis with healthcare-associated pneumonia with complete opacification, today is day #5 of meropenem, would complete 4 to 7 days. Repeated chest x-ray from today, moderate vascular congestion and improved right lower lobe infiltrate. We will follow with you. Harris Todd MD
[2018-05-21] MEDS: Ipratropium 0.02% Inhal Soln (0.5 mg/2.5 ml) UD IH SCH ×4 (02:40→19:54)
[2018-05-21] MEDS: Milrinone 20mg/100ml D5W 100 ML IV PRN ×4 (04:00→20:26)
[2018-05-21] MEDS: Meropenem IV 1 gm in NS 50 ML IVPB SCH ×2 (06:54→14:40)
[2018-05-21] MEDS: Arformoterol 15 mcg/2 ml Inh Sol IH SCH ×2 (07:42→19:54)
[2018-05-21] MEDS: Budesonide 0.5 mg/2 ml Inhal Susp UD IH SCH ×2 (07:42→19:55)
--- NOTE | 2018-05-21 08:06 | PN ---
Copied To: Harris Todd MD Attending MD: Harris Todd MD DATE: 05/21/2018 SUBJECTIVE: The patient is in bed, in no acute distress, nontoxic. The patient is seen earlier today in room 262, bed 1. No fevers, no chills. No nausea, no vomiting. OBJECTIVE: VITAL SIGNS: On exam, temperature is 98, blood pressure is 150/80, respiratory rate of 18, heart rate of 93. HEENT: Examination is unremarkable. NECK: Supple. LUNGS: Have decreased breath sounds. HEART: Normal S1, S2. ABDOMEN: Soft. DATA: Laboratory examination reveals a white count of 9, hemoglobin of 8, platelets of 202. Chemistries reveals a BUN of 45, creatinine of 1 and T-cells are noted. Serology is noted. Review of orders reveals the patient is on meropenem. The patient is also on Solu-Medrol. ASSESSMENT AND PLAN: This is a 52-year-old male who was seen earlier in room 262, bed 1 with morbid obesity with a body mass index of 42, with hypoxia, hypercapnia, respiratory failure, acute decompensated congestive heart failure, chronic obstructive lung disease and the patient's human immunodeficiency virus is probably a false positive Britney with negative PCR, normal T cells and developed sepsis, healthcare-associated pneumonia and a complete opacification, today is day #6 of meropenem and would complete seven days of meropenem. The patient's x-ray from yesterday is reviewed. Moderate vascular congestion, improving right lower lobe infiltrate. Of note is the patient's procalcitonin has been negative x2, today is day #6 7 days. We will be discontinuing antibiotics within the next 24 hours. Harris Todd MD
[2018-05-21] MEDS: Insulin Regular 1 UNITS/0.01 ML ML SC SCH ×4 (08:47→23:40)
[2018-05-21 10:42] LABS: EOS # 0.2 (0.0-0.7); GRAN # 6.01 (1.4-6.5); GRAN % 66.8 % (50.0-68.0); HEMOGLOBIN 7.3 g/dL (14.0-18.0); LYMPH % 21.9 % (22.0-35.0); MEAN CELL VOLUME 75.6 fl (80.0-105.0); MEAN CORPUSCULAR HEMOGLOBIN 20.3 pg (25.0-35.0); MEAN CORPUSCULAR HGB CONC 26.8 g/dl (31.0-37.0); MEAN PLATELET VOLUME 8.7 fl (7.0-11.0); MONO # 0.8 (0.1-0.6); MONO % 9.3 % (1.0-6.0); RBC 3.6 10^6/uL (3.5-6.1); RED CELL DISTRIBUTION WIDTH 25.1 % (11.5-14.5)
[2018-05-21 10:56] LABS: ALB/GLOB RATIO 0.9 (1.1-1.8); ALBUMIN 2.9 g/dL (3.0-4.8); ALT/SGPT 31 U/L (7-56); AST/SGOT 39 U/L (17-59); BLOOD UREA NITROGEN 33 mg/dL (7-21); CALCIUM 8.5 mg/dL (8.4-10.5); GFR NON-AFRICAN AMERICAN > 60
[2018-05-21] MEDS: POLYETHYLENE GLYCOL 3350 17 GM/Dose PACKET PO SCH (11:17)
[2018-05-21] MEDS: Ferrous Sulfate 300 mg/5 mL Liq UD PO SCH ×3 (11:17→17:30)
[2018-05-21] MEDS: Pantoprazole 40 mg EC Tab PO SCH (11:17)
[2018-05-21] MEDS: MethylPREDNISolone 40 mg Vial IVP SCH (11:19)
--- NOTE | 2018-05-21 11:56 | RAD ---
HISTORY: sob, consolidation COMPARISON: Chest x-ray performed 05/20/18 TECHNIQUE: Chest PA and lateral FINDINGS: Examination limited by habitus. LUNGS: Moderate to severe interstitial edema/infection. Small bilateral layering pleural effusions. No definite pneumothorax. Please note that chest x-ray has limited sensitivity for the detection of pulmonary masses. CARDIOVASCULAR: Cardiomegaly. OSSEOUS STRUCTURES: Degenerative changes. VISUALIZED UPPER ABDOMEN: Unremarkable. OTHER FINDINGS: None. IMPRESSION: Moderate to severe interstitial edema/infection. Small bilateral layering pleural effusions. Cardiomegaly.
--- NOTE | 2018-05-21 12:57 | PN ---
Copied To: Beny Salgado MD Attending MD: Beny Salgado MD DATE: 05/21/2018 FOLLOWUP SUBJECTIVE: The patient's shortness of breath is improved as well as his facial swelling. PHYSICAL EXAMINATION: VITAL SIGNS: Blood pressure 130/86, heart rate 100, temperature 98.5, respirations 20. HEENT: Pale conjunctivae. CHEST: Absent breath sounds of the left base. HEART: S1 and S2 regular. EXTREMITIES: 1+ pitting edema. LABORATORY DATA: Hemoglobin and hematocrit 7.3 and 27.2. White count and platelet count are within normal limit. SMA-7: Sodium 144, potassium 3.6, chloride of 94, CO2 of 45, glucose 178, BUN 33, creatinine 0.8. Blood cultures are negative after 5 days. Chest x-ray revealed cardiomegaly with bilateral alveolar infiltrates as well as moderate to severe congestive heart failure. ASSESSMENT: 1. Biventricular failure. 2. Pneumonia. 3. Anemia. 4. Obesity. 5. Bilateral pleural effusion. RECOMMENDATIONS: Continue Aldactone 25 mg daily, aspirin 81 mg once a day, clonidine 0.2 mg twice a day, Coreg 12.5 mg twice a day, heparin 5000 units subcutaneous every 8 hours, Lasix 20 mg intravenously daily, Solu-Medrol 30 mg intravenously daily, Zestril 2.5 mg once a day. Beny Salgado MD
--- NOTE | 2018-05-21 13:04 | CP.PCM.PN ---
<Rc Wong - Last Filed: 05/21/18 12:55> Subjective - Date & Time of Evaluation Date of Evaluation: 05/21/18 Time of Evaluation: 12:55 - Subjective Subjective: Rc Wong, PGY-1 Progress Note for Hospitalist Service Patient seen and examined at bedside this morning. No acute events overnight. Per nurse, patient was not compliant with bipap overnight. Breathing improved today. Will taper down milrinone. Patient will need rehab placement. Denies CP, abdominal pain, headaches, back pain, urinary complaints and swelling. Objective - Vital Signs/Intake and Output Vital Signs (last 24 hours): Temp Pulse Resp BP Pulse Ox 97.9 F 100 H 20 130/80 98 05/21/18 12:00 05/21/18 12:00 05/21/18 12:00 05/21/18 12:00 05/21/18 06:00 Intake and Output: 05/21/18 05/21/18 06:59 18:59 Intake Total 740 100 Output Total 2100 Balance -1360 100 - Medications Medications: Current Medications Albuterol/Ipratropium (Duoneb 3 Mg/0.5 Mg (3 Ml) Ud) 3 ml IH Q2H PRN PRN Reason: Shortness of Breath Arformoterol Tartrate (Brovana) 15 mcg IH [id number] [facility] Last Admin: 05/21/18 07:42 Dose: 15 mcg Aspirin (Aspirin Chewable) 81 mg PO DAILY [facility] Last Admin: 05/21/18 11:19 Dose: 81 mg Atorvastatin Calcium (Lipitor) 20 mg PO HS [facility] Last Admin: 05/20/18 21:21 Dose: 20 mg Budesonide (Pulmicort Respules) 0.5 mg IH [id number] [facility] Last Admin: 05/21/18 07:42 Dose: 0.5 mg Carvedilol (Coreg) 12.5 mg PO BID [facility] Last Admin: 05/21/18 11:18 Dose: 12.5 mg Clonidine HCl (Catapres) 0.2 mg PO BID [facility] Last Admin: 05/21/18 11:18 Dose: 0.2 mg Dextrose (Dextrose 50% Inj) 0 ml IV STAT PRN; Protocol PRN Reason: Hypoglycemia Protocol Docusate Sodium (Colace) 100 mg PO TID [facility] Last Admin: 05/21/18 11:17 Dose: 100 mg Ferrous Sulfate (Feosol Liq) 300 mg PO TID [facility] Last Admin: 05/21/18 11:17 Dose: 300 mg Furosemide (Lasix) 40 mg IVP Q12 [facility] Last Admin: 05/21/18 11:20 Dose: 40 mg Glipizide (Glucotrol) 5 mg PO ACB [facility] Last Admin: 05/21/18 09:19 Dose: 5 mg Guaifenesin (Robitussin) 100 mg PO Q4H PRN PRN Reason: Cough Heparin Sodium (Porcine) (Heparin) 5,000 units SC Q8 [facility] PRN Reason: Protocol Last Admin: 05/21/18 06:46 Dose: 5,000 units Meropenem (Merrem Iv 1 Gm Premix) 50 mls @ 100 mls/hr IVPB Q8 [facility] PRN Reason: Protocol Stop: 05/25/18 19:01 Last Admin: 05/21/18 06:54 Dose: Not Given Milrinone Lactate/Dextrose (Primacor 20mg/100ml D5w) 100 mls @ 17.146 mls/hr IV .Q5H50M PRN; Protocol; 0.375 MCG/KG/MIN PRN Reason: TITRATE PER MD ORDER Last Admin: 05/21/18 09:32 Dose: 0.375 mcg/kg/min, 17.146 mls/hr Insulin Human Regular (Humulin R) 0 units SC ACHS [facility] PRN Reason: Protocol Last Admin: 05/21/18 12:29 Dose: 1 unit Ipratropium [place] (Atrovent) 0.5 mg IH [id number] [facility] Last Admin: 05/21/18 07:42 Dose: 0.5 mg Lisinopril (Zestril) 2.5 mg PO DAILY [facility] Last Admin: 05/21/18 11:18 Dose: 2.5 mg Methylprednisolone (Solu-Medrol) 30 mg IVP DAILY [facility] Last Admin: 05/21/18 11:19 Dose: 30 mg Ondansetron HCl (Zofran Tab) 4 mg PO Q8H PRN PRN Reason: Nausea/Vomiting Pantoprazole Sodium (Protonix Ec Tab) 40 mg PO DAILY [facility] Last Admin: 05/21/18 11:17 Dose: 40 mg Polyethylene Glycol (Miralax) 17 gm PO DAILY [facility] Last Admin: 05/21/18 11:17 Dose: 17 gm Spironolactone (Aldactone) 25 mg PO DAILY [facility] Last Admin: 05/21/18 11:18 Dose: 25 mg - Labs Labs: 05/21/18 10:36 05/21/18 10:36 PT 21.4 SECONDS (9.4-12.5) H 05/09/18 17:00 INR 1.85 05/09/18 17:00 APTT 30.9 Seconds (25.1-36.5) 05/09/18 17:00 - Constitutional Appears: No Acute Distress - Head Exam Head Exam: ATRAUMATIC, NORMAL INSPECTION - Eye Exam Eye Exam: EOMI Pupil Exam: PERRL - ENT Exam ENT Exam: Mucous Membranes Moist - Respiratory Exam Respiratory Exam: absent: Accessory Muscle Use Additional comments: expiratory wheezing appreciated B/L, improving from previous examination - Cardiovascular Exam Cardiovascular Exam: REGULAR RHYTHM, +S1, +S2 - GI/Abdominal Exam GI & Abdominal Exam: Distended, Normal Bowel Sounds. absent: Guarding, Rigid - Back Exam Back Exam: NORMAL INSPECTION - Neurological Exam Neurological Exam: Alert, Awake, Oriented x3 - Skin Skin Exam: Normal Color, Warm Assessment and Plan - Assessment and Plan (Free Text) Assessment: This is a 52 year old male with PMH of CHF with last EF this month showing 39%, DM, COPD, CAD with stents, gout, HTN, and HLD presenting for management of acute hypercapnic respiratory failure 2/2 COPD exacerbation and acute on chronic systolic CHF. Patient not compliant with bipap overnight. CO2 today worsened today to 45. Will need rehab facility placement. Plan: Acute hypercapnic respiratory failure 2/2 COPD exacerbation -CO2 today is 45 from 41 yesterday. Patient is alert and oriented, psych on consult, Se. Burris -continue with treatment of chest PT, mucomyst, bronchodilators and steroids -CT chest showed complete left lung collapse with volume loss secondary to endobronchial lesion vs. secretins in the distal left mainstem bronchus. Large right and small to moderate left pleural effusions. Diffuse anasarca with extensive abdominal body wall edema -Plan for bronchoscopy after weekend Acute on chronic systolic CHF -CXR today showed moderate to severe interstitial edema/infection. Small B/L layering pleural effusions and cardiomegaly. -continue with lasix 40mg IV q12 and aldactone 25mg -currently on milrinone drip, will taper down -Echo on 05/10 showed mild concentric LVH, systolic function moderately impaired , septal hypokinesis, mild MR, moderate TR, mild pulmonary HTN, aortic root mildly enlarged -I/O: 1605/3000 with a negative balance of 1395cc -Continue Coreg, Lasix, and Aldactone -Cardiology on consult, Dr. Suarez Sepsis with HCAP -WBC today is 9 today from 9 yesterday, afebrile -CXR today showed moderate to severe interstitial edema/infection -currently on vancomycin, merrem day 6 -blood culture negative after 4 days -MRSA not detected -ID on consult, Dr. Groves Anemia -Hg today is 7.3 from 8 yesterday -repeat Hg pending for today at 15:00 -will monitor Anasarca -likely 2/2 CHF exacerbation - continuing to improve -testicular US is significant for diffuse scrotal wall edema, small B/L hydroceles -scrotal swelling continues to be appreciated on physical exam, continuing with current management of diuresis -urology consulted, Dr. Zimmerman CAD -Cardiac cath in 12/2017 revealed EF 30% and LAD lesion 80%. Questionable follow up with cardiology -patient denies use of life vest -trop negative x2 on 05/09 -ASA 81, coreg 12.5mg BID -Cardiology on consult, Dr. Suarez Diabetes -accuchecks -hypoglycemia protocol -glipizide 5mg, insulin human regualar ACHS -heart healthy diet PPX with heparin and protonix Patient seen, case reviewed by and discussed with attending, Dr. Armas <Sneha Armas R - Last Filed: 05/22/18 10:31> Objective - Vital Signs/Intake and Output Vital Signs (last 24 hours): Temp Pulse Resp BP Pulse Ox 98.0 F 87 20 124/81 100 05/22/18 06:00 05/22/18 07:20 05/22/18 06:00 05/22/18 07:20 05/22/18 06:00 Intake and Output: 05/22/18 05/22/18 06:59 18:59 Intake Total 1687 100 Output Total 2350 Balance -663 100 - Medications Medications: Current Medications Albuterol/Ipratropium (Duoneb 3 Mg/0.5 Mg (3 Ml) Ud) 3 ml IH Q2H PRN PRN Reason: Shortness of Breath Arformoterol Tartrate (Brovana) 15 mcg IH [id number] [facility] Last Admin: 05/22/18 07:56 Dose: 15 mcg Aspirin (Aspirin Chewable) 81 mg PO DAILY [facility] Last Admin: 05/21/18 11:19 Dose: 81 mg Atorvastatin Calcium (Lipitor) 20 mg PO HS [facility] Last Admin: 05/21/18 23:40 Dose: 20 mg Budesonide (Pulmicort Respules) 0.5 mg IH [id number] [facility] Last Admin: 05/22/18 07:56 Dose: 0.5 mg Carvedilol (Coreg) 12.5 mg PO BID [facility] Last Admin: 05/21/18 17:31 Dose: 12.5 mg Clonidine HCl (Catapres) 0.2 mg PO BID [facility] Last Admin: 05/21/18 17:31 Dose: 0.2 mg Dextrose (Dextrose 50% Inj) 0 ml IV STAT PRN; Protocol PRN Reason: Hypoglycemia Protocol Docusate Sodium (Colace) 100 mg PO TID PRN PRN Reason: Constipation Ferrous Sulfate (Feosol Liq) 300 mg PO TID [facility] Last Admin: 05/21/18 17:30 Dose: 300 mg Furosemide (Lasix) 40 mg IVP Q12 [facility] Last Admin: 05/21/18 23:40 Dose: 40 mg Glipizide (Glucotrol) 5 mg PO ACB [facility] Last Admin: 05/21/18 09:19 Dose: 5 mg Guaifenesin (Robitussin) 100 mg PO Q4H PRN PRN Reason: Cough Heparin Sodium (Porcine) (Heparin) 5,000 units SC Q8 [facility] PRN Reason: Protocol Last Admin: 05/22/18 05:22 Dose: 5,000 units Milrinone Lactate/Dextrose (Primacor 20mg/100ml D5w) 100 mls @ 17.146 mls/hr IV .Q5H50M PRN; Protocol; 0.375 MCG/KG/MIN PRN Reason: TITRATE PER MD ORDER Last Admin: 05/22/18 07:20 Dose: 0.375 mcg/kg/min, 17.146 mls/hr Insulin Human Regular (Humulin R) 0 units SC [facility] PRN Reason: Protocol Last Admin: 05/21/18 23:40 Dose: Not Given Ipratropium [place] (Atrovent) 0.5 mg IH [id number] [facility] Last Admin: 05/22/18 07:56 Dose: 0.5 mg Lisinopril (Zestril) 2.5 mg PO DAILY [facility] Last Admin: 05/21/18 11:18 Dose: 2.5 mg Methylprednisolone (Solu-Medrol) 30 mg IVP DAILY [facility] Last Admin: 05/21/18 11:19 Dose: 30 mg Ondansetron HCl (Zofran Tab) 4 mg PO Q8H PRN PRN Reason: Nausea/Vomiting Pantoprazole Sodium (Protonix Ec Tab) 40 mg PO DAILY [facility] Last Admin: 05/21/18 11:17 Dose: 40 mg Polyethylene Glycol (Miralax) 17 gm PO DAILY PRN PRN Reason: Constipation Spironolactone (Aldactone) 25 mg PO DAILY [facility] Last Admin: 05/21/18 11:18 Dose: 25 mg - Labs Labs: 05/21/18 16:00 05/21/18 10:36 PT 21.4 SECONDS (9.4-12.5) H 05/09/18 17:00 INR 1.85 05/09/18 17:00 APTT 30.9 Seconds (25.1-36.5) 05/09/18 17:00 Attending/Attestation - Attestation I have personally seen and examined this patient.: Yes I have fully participated in the care of the patient.: Yes I have reviewed all pertinent clinical information, including history, physical exam and plan: Yes Notes (Text): Patient seen and examined by me at 10:10AM with resident 05/21/18. Case including HPI, physical exam, and assessment and plan discussed with resident. Agree with above with following additions/corrections. Patient is a 52 year old male with past medical history significant for COPD, CAD, CHF, DM2, HTN, hperlipidemia, lumbar radiculopathy, and gout that presented to the emergency room with shortness of breath. Patient states he is feeling is feeling much better. Patient is more talkative and appears to be in a good mood. States he has been using the BIPAP. He feels he is breathing much better. No chest pain or palpitations. No headache or dizziness. No fevers or chills. No nausea, vomiting, or abdominal pain. No dysuria. He is having bowel movements. Physical exam: Gen: Awake and alert lying in bed in no acute distress HEENT: Normocephalic, atraumatic. Extraocular muscles intact, pupils equal reactive. No scleral icterus. Oropharynx is pink and moist. Neck is supple. Cardiovascular: Normal rhythm. Normal S1, S2. No murmurs, rubs, or gallops appreciated Pulmonary: Respiratory effort improved. No use of accessory muscles. Decreased breath sounds. No rhonchi, rales, or wheezing appreciated. Gastrointestinal: Soft, nontender, distended. Globular abdomen. Positive bowel sounds all 4 quadrants, no guarding. Musculoskeletal: Moves all extremities. No calf tenderness. Positive lower extremity pitting edema Central nervous system: AAO x 3. Dermatologic: Skin warm and dry, bilateral lower extremity chronic stasis color changes. Assessment and plan: Patient is a 52 year old male with past medical history significant for COPD, CAD, CHF, DM2, HTN, hperlipidemia, lumbar radiculopathy, and gout that presented to the emergency room with shortness of breath. 1. Acute respiratory failure. CO2 narcosis. Improved. Pending ABG. Continue with BIPAP. Chest xray today per radiologist shows moderate to severe interstitial edema/infection; small bilateral layering pleural effusions. Continue Chest PT. Follow up repeat chest xray in AM. 2. Complete opacification of left lung on chest xray. Resolved. shows moderate to severe interstitial edema/infection; small bilateral layering pleural effusions. Continue Lasix 40 mg IV every 12 hours. Continue Aldactone. Continue milrinone drip. Continue to monitor ins and outs. Continue chest PT. 3. Healthcare acquired pneumonia. ID following, recommendations appreciated. S/ P vancomycin and meropenem. Will check with ID if needs to be continued. Continue guaifenesin as needed. Continue nebulizer treatments. 4. Respiratory distress. Improving. Multifactorial. Secondary to acute on chronic systolic CHF exacerbation, COPD, and non compliance with medications, CO2 narcosis and left lung opacification, pleural effusions, and healthcare acquired pneumonia. Continue with milrinone drip. Continue Coreg, Lasix, Lisinopril, and Aldactone. Continue to monitor I's and O's. Continue to monitor daily weights. Cardiology following, recommendations appreciated 5. COPD exacerbation. Continue with BiPAP. Taper Solu-Medrol. Continue Brovana, Pulmicort, and nebulizer treatments. Continue O2 via nasal cannula. Pulmonary following, recommendations appreciated. 6. Medication noncompliance. Importance of compliance discussed with patient at length. Continue to encourage use of BIPAP. Palliative care consulted. Psychiatry following, recommendations appreciated. 7. HIV 1 antibody positive, HIV fourth generation positive, likely false positive. CD4 count 747. Viral load not detected. ID following, recommendations appreciated. 8. Abnormal urinalysis. ID following, recommendations appreciated. S/P antibiotic treatment. 9. CAD s/p stent placement. Patient non-compliant with medications and follow up with doctors. Contine Coreg, ASA, Lisinopril and Lipitor. 10. Hypertension. Continue Clonidine, lasix, Lisinopril, and Coreg. Continue milrinone drip 11. DM2. Continue insulin sliding scale and glipizide. Continue to monitor accuchecks. 12. Hyperlipidemia. Continue Lipitor 13. Chronic anemia. No signs of acute bleeding. H&H downtrending. Stool for occult blood was negative. Will check repeat CBC. Continue ferrous sulfate 14. Scrotal edema. Likely secondary to anasarca from decompensated CHF. Testicular ultrasound per radiologist shows diffuse scrotal wall edema, no drainable fluid collection, small bilateral hydroceles, no evidence for testicular torsion or mass. Urology following, recommendations appreciated. 15. GI/DVT prophylaxis. Protonix and heparin Case was discussed in detail with the patient regarding current diagnosis and treatment plan.
[2018-05-22] MEDS: Ipratropium 0.02% Inhal Soln (0.5 mg/2.5 ml) UD IH SCH ×4 (01:32→20:05)
[2018-05-22] MEDS: Milrinone 20mg/100ml D5W 100 ML IV PRN ×4 (01:48→19:57)
[2018-05-22] MEDS: Arformoterol 15 mcg/2 ml Inh Sol IH SCH ×2 (07:56→20:05)
[2018-05-22] MEDS: Budesonide 0.5 mg/2 ml Inhal Susp UD IH SCH ×2 (07:56→20:05)
[2018-05-22 09:36] LABS: ARTERIAL BLOOD GAS HEMOGLOBIN 7.4 g/dL (11.7-17.4); ARTERIAL BLOOD GAS O2 CONTENT 9.6 ML/dl (15-23); ARTERIAL BLOOD GAS O2 SAT 95.6 % (95-98); ARTERIAL BLOOD GAS PH 7.44 (7.35-7.45); ARTERIAL BLOOD GAS TCO2 51.8 mmol.L (22-28)
[2018-05-22 09:59] LABS: ARTERIAL BLOOD GAS PCO2 73 mm/Hg (35-45)
[2018-05-22 10:00] LABS: ARTERIAL BLOOD GAS HCO3 49.6 mmol/L (21-28)
[2018-05-22] MEDS ORDERED: POLYETHYLENE GLYCOL 3350 17 GM/Dose PACKET PO PRN (10:27)
[2018-05-22] MEDS: Insulin Regular 1 UNITS/0.01 ML ML SC SCH ×4 (10:34→22:04)
[2018-05-22] MEDS: Pantoprazole 40 mg EC Tab PO SCH (10:35)
[2018-05-22] MEDS: Ferrous Sulfate 300 mg/5 mL Liq UD PO SCH ×3 (10:35→17:47)
[2018-05-22] MEDS: MethylPREDNISolone 40 mg Vial IVP SCH (10:36)
[2018-05-22] MEDS: POLYETHYLENE GLYCOL 3350 17 GM/Dose PACKET PO SCH (10:45)
--- NOTE | 2018-05-22 13:15 | RAD ---
HISTORY: atelectasis COMPARISON: Chest x-ray performed 05/21/18 TECHNIQUE: Chest, one view. FINDINGS: LUNGS: Moderate to severe interstitial edema/infection. Small bilateral layering pleural effusions. No definite pneumothorax. CARDIOVASCULAR: Cardiomegaly. OSSEOUS STRUCTURES: Degenerative changes. VISUALIZED UPPER ABDOMEN: Unremarkable. OTHER FINDINGS: None. IMPRESSION: Cardiomegaly. Moderate to severe interstitial edema/infection. Small bilateral layering pleural effusions.
--- NOTE | 2018-05-22 13:34 | CP.PCM.PN ---
<Rc Wong - Last Filed: 05/22/18 13:31> Subjective - Date & Time of Evaluation Date of Evaluation: 05/22/18 Time of Evaluation: 13:31 - Subjective Subjective: Rc Wong, PGY-1 Progress Note for Hospitalist Service Patient seen and examined at bedside this morning. No acute events overnight. In good spirits this morning and eating breakfast comfortably. Continues to have questionable compliance with bipap. Patient refusing to have blood work done, unable to monitor H/H and WBC. Antibiotics are stopped per ID. No new complaints. Will need rehab placement. Objective - Vital Signs/Intake and Output Vital Signs (last 24 hours): Temp Pulse Resp BP Pulse Ox 97.9 F 95 H 20 103/68 100 05/22/18 12:00 05/22/18 12:00 05/22/18 12:00 05/22/18 12:00 05/22/18 06:00 Intake and Output: 05/22/18 05/22/18 06:59 18:59 Intake Total 1687 100 Output Total 2350 Balance -663 100 - Medications Medications: Current Medications Albuterol/Ipratropium (Duoneb 3 Mg/0.5 Mg (3 Ml) Ud) 3 ml IH Q2H PRN PRN Reason: Shortness of Breath Arformoterol Tartrate (Brovana) 15 mcg IH [id number] [facility] Last Admin: 05/22/18 07:56 Dose: 15 mcg Aspirin (Aspirin Chewable) 81 mg PO DAILY [facility] Last Admin: 05/22/18 10:34 Dose: 81 mg Atorvastatin Calcium (Lipitor) 20 mg PO HS [facility] Last Admin: 05/21/18 23:40 Dose: 20 mg Budesonide (Pulmicort Respules) 0.5 mg IH [id number] [facility] Last Admin: 05/22/18 07:56 Dose: 0.5 mg Carvedilol (Coreg) 12.5 mg PO BID [facility] Last Admin: 05/22/18 10:34 Dose: 12.5 mg Clonidine HCl (Catapres) 0.2 mg PO BID [facility] Last Admin: 05/22/18 10:35 Dose: 0.2 mg Dextrose (Dextrose 50% Inj) 0 ml IV STAT PRN; Protocol PRN Reason: Hypoglycemia Protocol Docusate Sodium (Colace) 100 mg PO TID PRN PRN Reason: Constipation Ferrous Sulfate (Feosol Liq) 300 mg PO TID [facility] Last Admin: 05/22/18 10:35 Dose: 300 mg Furosemide (Lasix) 40 mg IVP Q12 [facility] Last Admin: 05/22/18 10:36 Dose: 40 mg Glipizide (Glucotrol) 5 mg PO ACB [facility] Last Admin: 05/22/18 10:36 Dose: 5 mg Guaifenesin (Robitussin) 100 mg PO Q4H PRN PRN Reason: Cough Heparin Sodium (Porcine) (Heparin) 5,000 units SC Q8 [facility]VIS PRN Reason: Protocol Last Admin: 05/22/18 05:22 Dose: 5,000 units Milrinone Lactate/Dextrose (Primacor 20mg/100ml D5w) 100 mls @ 17.146 mls/hr IV .Q5H50M PRN; Protocol; 0.375 MCG/KG/MIN PRN Reason: TITRATE PER MD ORDER Last Admin: 05/22/18 07:20 Dose: 0.375 mcg/kg/min, 17.146 mls/hr Insulin Human Regular (Humulin R) 0 units SC ACHS [facility] PRN Reason: Protocol Last Admin: 05/22/18 12:11 Dose: 3 unit Ipratropium [place] (Atrovent) 0.5 mg IH [id number] [facility] Last Admin: 05/22/18 07:56 Dose: 0.5 mg Lisinopril (Zestril) 2.5 mg PO DAILY [facility] Last Admin: 05/22/18 10:35 Dose: 2.5 mg Methylprednisolone (Solu-Medrol) 30 mg IVP DAILY [facility] Last Admin: 05/22/18 10:36 Dose: 30 mg Ondansetron HCl (Zofran Tab) 4 mg PO Q8H PRN PRN Reason: Nausea/Vomiting Pantoprazole Sodium (Protonix Ec Tab) 40 mg PO DAILY [facility] Last Admin: 05/22/18 10:35 Dose: 40 mg Polyethylene Glycol (Miralax) 17 gm PO DAILY PRN PRN Reason: Constipation Spironolactone (Aldactone) 25 mg PO DAILY [facility] Last Admin: 05/22/18 10:34 Dose: 25 mg - Labs Labs: 05/21/18 16:00 09/01/18 10:36 PT 21.4 SECONDS (9.4-12.5) H 05/09/18 17:00 INR 1.85 05/09/18 17:00 APTT 30.9 Seconds (25.1-36.5) 05/09/18 17:00 - Constitutional Appears: No Acute Distress - Head Exam Head Exam: ATRAUMATIC, NORMOCEPHALIC - Eye Exam Eye Exam: EOMI Pupil Exam: PERRL - ENT Exam ENT Exam: Mucous Membranes Moist - Respiratory Exam Respiratory Exam: absent: Accessory Muscle Use, Respiratory Distress Additional comments: B/L expiratory wheezing are appreciated, improving. Poor inspiratory effort. Decreased breath sounds noted - Cardiovascular Exam Cardiovascular Exam: REGULAR RHYTHM, +S1, +S2 - GI/Abdominal Exam GI & Abdominal Exam: Distended, Normal Bowel Sounds. absent: Guarding, Rigid, Tenderness - Extremities Exam Extremities Exam: Normal Inspection. absent: Calf Tenderness - Neurological Exam Neurological Exam: Alert, Awake, Oriented x3 - Skin Skin Exam: Normal Color, Warm Assessment and Plan - Assessment and Plan (Free Text) Assessment: This is a 52 year old male with PMH of CHF with last EF this month showing 39%, DM, COPD, CAD with stents, gout, HTN, and HLD presenting for management of acute hypercapnic respiratory failure 2/2 COPD exacerbation and acute on chronic systolic CHF. Patient continues to have questionable compliance with bipap overnight. CO2 on ABG today is 73 from 63 two days ago. Will need rehab facility placement. Plan: Acute hypercapnic respiratory failure 2/2 COPD exacerbation - ABG reveals pH of 7.44, CO2 73 and bicarb of 49.6 concerning for primary metabolic alkalosis. -CO2 worsened from previous ABG -continue with treatment of chest PT, mucomyst, bronchodilators and steroids -CT chest showed complete left lung collapse with volume loss secondary to endobronchial lesion vs. secretins in the distal left mainstem bronchus. Large right and small to moderate left pleural effusions. Diffuse anasarca with extensive abdominal body wall edema -Plan for bronchoscopy after -Psych on consult, Dr. Burris. Patient refusing meds at times Acute on chronic systolic CHF -CXR today showed cardiomegaly and moderate to severe interstitial edema/ infection. Small B/L layering effusions -continuing with milrinone drip at this time to help edema -Echo on 05/10 showed mild concentric LVH, systolic function moderately impaired , septal hypokinesis, mild MR, moderate TR, mild pulmonary HTN, aortic root mildly enlarged -I/O: 2967/4025 with balance of -1058cc -continue with lasix 40mg IV q12 and aldactone 25mg -Cardiology on consult, Dr. Suarez Sepsis with HCAP - resolved CXR today showed cardiomegaly and moderate to severe interstitial edema/ infection. Small B/L layering effusions -WBC today was 9 yesterday. Patient refused blood work today -stopped antibiotics today -blood culture negative after 5 days -MRSA not detected -ID on consult, Dr. Groves Anemia -Hg today is 7.2 yesterday. Patient refused blood work today -will attempt to get blood work -FOBT ordered Anasarca - improving -likely 2/2 CHF exacerbation -testicular US previously showed diffuse scrotal wall edema, small B/L hydroceles -scrotal swelling continues to be appreciated on physical exam, continuing with current management of diuresis -urology consulted, Dr. Zimmerman CAD -Cardiac cath in 12/2017 revealed EF 30% and LAD lesion 80%. Questionable follow up with cardiology -patient denies use of life vest -trop negative x2 on 05/09 -ASA 81, coreg 12.5mg BID -Cardiology on consult, Dr. Suarez Diabetes -accuchecks -hypoglycemia protocol -glipizide 5mg, insulin human regualar ACHS -heart healthy diet PPX with heparin and protonix Patient seen, case reviewed by and discussed with attending, Dr. Armas <Sneha Armas R - Last Filed: 05/22/18 16:27> Objective - Vital Signs/Intake and Output Vital Signs (last 24 hours): Temp Pulse Resp BP Pulse Ox 97.9 F 95 H 20 103/68 100 05/22/18 12:00 05/22/18 12:00 05/22/18 12:00 05/22/18 12:00 05/22/18 06:00 Intake and Output: 05/22/18 05/22/18 06:59 18:59 Intake Total 1687 200 Output Total 2350 Balance -663 200 - Medications Medications: Current Medications Albuterol/Ipratropium (Duoneb 3 Mg/0.5 Mg (3 Ml) Ud) 3 ml IH Q2H PRN PRN Reason: Shortness of Breath Arformoterol Tartrate (Brovana) 15 mcg IH [id number] [facility] Last Admin: 05/22/18 07:56 Dose: 15 mcg Aspirin (Aspirin Chewable) 81 mg PO DAILY [facility] Last Admin: 05/22/18 10:34 Dose: 81 mg Atorvastatin Calcium (Lipitor) 20 mg PO HS [facility] Last Admin: 05/21/18 23:40 Dose: 20 mg Budesonide (Pulmicort Respules) 0.5 mg IH [id number] [facility] Last Admin: 05/22/18 07:56 Dose: 0.5 mg Carvedilol (Coreg) 12.5 mg PO BID [facility] Last Admin: 05/22/18 10:34 Dose: 12.5 mg Clonidine HCl (Catapres) 0.2 mg PO BID [facility] Last Admin: 05/22/18 10:35 Dose: 0.2 mg Dextrose (Dextrose 50% Inj) 0 ml IV STAT PRN; Protocol PRN Reason: Hypoglycemia Protocol Docusate Sodium (Colace) 100 mg PO TID PRN PRN Reason: Constipation Ferrous Sulfate (Feosol Liq) 300 mg PO TID [facility] Last Admin: 05/22/18 13:34 Dose: 300 mg Furosemide (Lasix) 40 mg IVP Q12 [facility] Last Admin: 05/22/18 10:36 Dose: 40 mg Glipizide (Glucotrol) 5 mg PO ACB [facility] Last Admin: 05/22/18 10:36 Dose: 5 mg Guaifenesin (Robitussin) 100 mg PO Q4H PRN PRN Reason: Cough Heparin Sodium (Porcine) (Heparin) 5,000 units SC Q8 [facility] PRN Reason: Protocol Last Admin: 05/22/18 13:34 Dose: 5,000 units Milrinone Lactate/Dextrose (Primacor 20mg/100ml D5w) 100 mls @ 17.146 mls/hr IV .Q5H50M PRN; Protocol; 0.375 MCG/KG/MIN PRN Reason: TITRATE PER MD ORDER Last Admin: 05/22/18 14:40 Dose: 0.375 mcg/kg/min, 17.146 mls/hr Insulin Human Regular (Humulin R) 0 units SC ACHS [facility] PRN Reason: Protocol Last Admin: 05/22/18 12:11 Dose: 3 unit Ipratropium [place] (Atrovent) 0.5 mg IH [id number] [facility] Last Admin: 05/22/18 13:57 Dose: 0.5 mg Lisinopril (Zestril) 2.5 mg PO DAILY [facility] Last Admin: 05/22/18 10:35 Dose: 2.5 mg Methylprednisolone (Solu-Medrol) 30 mg IVP DAILY [facility] Last Admin: 05/22/18 10:36 Dose: 30 mg Ondansetron HCl (Zofran Tab) 4 mg PO Q8H PRN PRN Reason: Nausea/Vomiting Pantoprazole Sodium (Protonix Ec Tab) 40 mg PO DAILY [facility] Last Admin: 05/22/18 10:35 Dose: 40 mg Polyethylene Glycol (Miralax) 17 gm PO DAILY PRN PRN Reason: Constipation Spironolactone (Aldactone) 25 mg PO DAILY [facility] Last Admin: 05/22/18 10:34 Dose: 25 mg - Labs Labs: 05/21/18 16:00 05/21/18 10:36 PT 21.4 SECONDS (9.4-12.5) H 05/09/18 17:00 INR 1.85 05/09/18 17:00 APTT 30.9 Seconds (25.1-36.5) 05/09/18 17:00 Attending/Attestation - Attestation I have personally seen and examined this patient.: Yes I have fully participated in the care of the patient.: Yes I have reviewed all pertinent clinical information, including history, physical exam and plan: Yes Notes (Text): Patient seen and examined by me at 8:20AM with resident. Case including HPI, physical exam, and assessment and plan discussed with resident. Agree with above with following additions/corrections. Patient is a 52 year old male with past medical history significant for COPD, CAD, CHF, DM2, HTN, hperlipidemia, lumbar radiculopathy, and gout that presented to the emergency room with shortness of breath. Patient states he is feeling pretty good. States he used BIPAP over night. He states he does not feel short of breath and coughing has improved. He denies chest pain or palpitations. No headache or dizziness. No fevers or chills. No nausea, vomiting, or abdominal pain. No dysuria. He is having bowel movements. Physical exam: Gen: Awake and alert lying in bed in no acute distress HEENT: Normocephalic, atraumatic. Extraocular muscles intact, pupils equal reactive. No scleral icterus. Oropharynx is pink and moist. Neck is supple. Cardiovascular: Normal rhythm. Normal S1, S2. No murmurs, rubs, or gallops appreciated Pulmonary: Respiratory effort improved. No use of accessory muscles. Decreased breath sounds throughout. No rhonchi, rales, or wheezing appreciated. Gastrointestinal: Soft, nontender, distended. Globular abdomen. Positive bowel sounds all 4 quadrants, no guarding. Musculoskeletal: Moves all extremities. No calf tenderness. Positive lower extremity pitting edema Central nervous system: AAO x 3. Dermatologic: Skin warm and dry, bilateral lower extremity chronic stasis color changes. Assessment and plan: Patient is a 52 year old male with past medical history significant for COPD, CAD, CHF, DM2, HTN, hperlipidemia, lumbar radiculopathy, and gout that presented to the emergency room with shortness of breath. 1. Acute respiratory failure. CO2 narcosis. CO2 increased today. Patient states he is only wearing BIPAP for one hour. Noncompliance discussed again with patient. Follow up repeat ABG. Chest xray today per radiologist shows moderate to severe interstitial edema/infection; small bilateral layering pleural effusions; cardiomegaly. Continue Chest PT. 2. Complete opacification of left lung on chest xray. Resolved. shows moderate to severe interstitial edema/infection; small bilateral layering pleural effusions; cardiomegaly. Continue Lasix 40 mg IV every 12 hours. Continue Aldactone. Continue milrinone drip. Continue to monitor ins and outs. Continue chest PT. 3. Healthcare acquired pneumonia. ID following, recommendations appreciated. S/ P vancomycin and meropenem. Antibiotics stopped per ID. Continue guaifenesin as needed. Continue nebulizer treatments. 4. Respiratory distress. Improving. Multifactorial. Secondary to acute on chronic systolic CHF exacerbation, COPD, and non compliance with medications, CO2 narcosis and left lung opacification, pleural effusions, and healthcare acquired pneumonia. Continue with milrinone drip. Continue Coreg, Lasix, Lisinopril, and Aldactone. Continue to monitor I's and O's. Continue to monitor daily weights. Cardiology following, recommendations appreciated 5. COPD exacerbation. Continue with BiPAP. Continue Solu-Medrol. Continue Brovana, Pulmicort, and nebulizer treatments. Continue O2 via nasal cannula. Pulmonary following, recommendations appreciated. 6. Medication noncompliance. Importance of compliance again discussed with patient at length. Patient refusing BIPAP today for longer than an hour. Continue to encourage use of BIPAP. Palliative care consulted. Psychiatry following, recommendations appreciated. 7. HIV 1 antibody positive, HIV fourth generation positive, likely false positive. CD4 count 747. Viral load not detected. ID following, recommendations appreciated. 8. Abnormal urinalysis. ID following, recommendations appreciated. S/P antibiotic treatment. 9. CAD s/p stent placement. Patient non-compliant with medications and follow up with doctors. Contine Coreg, ASA, Lisinopril and Lipitor. 10. Hypertension. Continue Clonidine, lasix, Lisinopril, and Coreg. Continue milrinone drip 11. DM2. Continue insulin sliding scale and glipizide. Continue to monitor accuchecks. 12. Hyperlipidemia. Continue Lipitor 13. Chronic anemia. No signs of acute bleeding. H&H downtrending. Patient refusing lab work today. Importance discussed at length with patient. Patient still refusing. Continue ferrous sulfate 14. Scrotal edema. Likely secondary to anasarca from decompensated CHF. Testicular ultrasound per radiologist shows diffuse scrotal wall edema, no drainable fluid collection, small bilateral hydroceles, no evidence for testicular torsion or mass. Urology following, recommendations appreciated. 15. GI/DVT prophylaxis. Protonix and heparin Case was discussed in detail with the patient regarding current diagnosis and treatment plan.
--- NOTE | 2018-05-22 18:27 | PN ---
Copied To: Beny Salgado MD Attending MD: Beny Salgado MD DATE: 05/22/2018 SUBJECTIVE: The patient is currently on BiPAP. He is mildly short of breath. He denies any chest pain. PHYSICAL EXAMINATION: VITAL SIGNS: Blood pressure 140/77, heart rate 95, temperature 98, respirations 20. HEENT: Pale conjunctivae. CHEST: Bilateral rhonchi. HEART: S1 and S2 regular. EXTREMITIES: A 1+ pitting edema. LABORATORY DATA: Today's blood sugar 115 and 253 respectively. ASSESSMENT: 1. Exacerbation of chronic obstructive lung disease. 2. Biventricular failure. 3. Worsening anemia. 4. Pneumonia. 5. Morbid obesity. 6. Bilateral pleural effusion. RECOMMENDATIONS: Continue Aldactone 25 mg once a day, aspirin 81 mg once a day, clonidine 0.2 mg twice a day, Coreg 12.5 mg twice a day, glipizide 5 mg once a day, Lasix 40 mg intravenously twice a day, milrinone infusion, Solu-Medrol 30 mg intravenously daily, Zestril 2.5 mg daily. Beny Salgado MD
[2018-05-23] MEDS: Milrinone 20mg/100ml D5W 100 ML IV PRN ×4 (01:43→22:48)
[2018-05-23] MEDS: Ipratropium 0.02% Inhal Soln (0.5 mg/2.5 ml) UD IH SCH ×4 (02:05→19:50)
[2018-05-23] MEDS: Arformoterol 15 mcg/2 ml Inh Sol IH SCH ×2 (07:35→19:50)
[2018-05-23] MEDS: Budesonide 0.5 mg/2 ml Inhal Susp UD IH SCH ×2 (07:35→19:50)
[2018-05-23 08:02] LABS: BASO # 0.01 K/mm3 (0.0-2.0); BASO % 0.1 % (0.0-3.0); EOS # 0.1 (0.0-0.7); EOS % 0.7 % (1.5-5.0); GRAN # 8.65 (1.4-6.5); GRAN % 70.2 % (50.0-68.0); LYMPH # 2.5 (1.2-3.4); LYMPH % 20.4 % (22.0-35.0); MEAN CELL VOLUME 76.4 fl (80.0-105.0); MEAN CORPUSCULAR HEMOGLOBIN 20.3 pg (25.0-35.0); MEAN CORPUSCULAR HGB CONC 26.6 g/dl (31.0-37.0); MONO # 1.1 (0.1-0.6); MONO % 8.6 % (1.0-6.0); PLATELET COUNT 153 10^3/uL (120.0-450.0); RBC 3.35 10^6/uL (3.5-6.1); RED CELL DISTRIBUTION WIDTH 25.9 % (11.5-14.5); WHITE BLOOD COUNT 12.3 10^3/ul (4.5-11.0)
[2018-05-23] MEDS: Insulin Regular 1 UNITS/0.01 ML ML SC SCH ×4 (08:15→22:05)
[2018-05-23 08:21] LABS: HEMOGLOBIN 6.8 g/dL (14.0-18.0)
[2018-05-23 08:27] LABS: ALBUMIN 2.9 g/dL (3.0-4.8); ALT/SGPT 32 U/L (7-56); AST/SGOT 28 U/L (17-59); BLOOD UREA NITROGEN 27 mg/dL (7-21); CALCIUM 8.2 mg/dL (8.4-10.5); GFR NON-AFRICAN AMERICAN > 60
[2018-05-23 08:33] LABS: ARTERIAL BLOOD GAS HCO3 46.6 mmol/L (21-28); ARTERIAL BLOOD GAS HEMOGLOBIN 6.8 g/dL (11.7-17.4); ARTERIAL BLOOD GAS O2 CAPACITY 9.4 mL/dl (16-24); ARTERIAL BLOOD GAS O2 CONTENT 8.6 ML/dl (15-23); ARTERIAL BLOOD GAS O2 SAT 91.9 % (95-98); ARTERIAL BLOOD GAS PCO2 67 mm/Hg (35-45); ARTERIAL BLOOD GAS PH 7.45 (7.35-7.45); ARTERIAL BLOOD GAS TCO2 48.7 mmol.L (22-28)
[2018-05-23 10:00] LABS: HEMOGLOBIN 6.8 g/dL (14.0-18.0)
[2018-05-23] MEDS: MethylPREDNISolone 40 mg Vial IVP SCH (10:12)
[2018-05-23] MEDS: Pantoprazole 40 mg EC Tab PO SCH (10:19)
[2018-05-23] MEDS: Ferrous Sulfate 300 mg/5 mL Liq UD PO SCH ×3 (10:19→17:37)
[2018-05-23] MEDS ORDERED: Potassium Chloride 20 mEq ER Tab PO ONE (10:51)
--- NOTE | 2018-05-23 12:08 | CP.PCM.PN ---
<Rc Wong - Last Filed: 05/23/18 12:04> Subjective - Date & Time of Evaluation Date of Evaluation: 05/23/18 Time of Evaluation: 12:04 - Subjective Subjective: Rc Wong, PGY-1 Progress Note for Hospitalist Service Patient seen and examined at bedside this morning. No acute events overnight. Patient states he used bipap overnight. No new complaints today. Awaiting recommendations from palliative care and psych. Transfused one unit RPBC today. Objective - Vital Signs/Intake and Output Vital Signs (last 24 hours): Temp Pulse Resp BP Pulse Ox 98.6 F 102 H 18 116/72 95 05/23/18 06:00 05/23/18 10:20 05/23/18 10:00 05/23/18 10:20 05/23/18 10:00 Intake and Output: 05/23/18 05/23/18 06:59 18:59 Intake Total 2465 100 Output Total 2850 Balance -385 100 - Medications Medications: Current Medications Albuterol/Ipratropium (Duoneb 3 Mg/0.5 Mg (3 Ml) Ud) 3 ml IH Q2H PRN PRN Reason: Shortness of Breath Arformoterol Tartrate (Brovana) 15 mcg IH [id number] [facility] Last Admin: 05/23/18 07:35 Dose: 15 mcg Aspirin (Aspirin Chewable) 81 mg PO DAILY [facility] Last Admin: 05/23/18 10:20 Dose: 81 mg Atorvastatin Calcium (Lipitor) 20 mg PO HS [facility] Last Admin: 05/22/18 22:08 Dose: 20 mg Budesonide (Pulmicort Respules) 0.5 mg IH [id number] [facility] Last Admin: 05/23/18 07:35 Dose: 0.5 mg Carvedilol (Coreg) 12.5 mg PO BID [facility] Last Admin: 05/23/18 10:20 Dose: 12.5 mg Clonidine HCl (Catapres) 0.2 mg PO BID [facility] Last Admin: 05/23/18 10:20 Dose: 0.2 mg Dextrose (Dextrose 50% Inj) 0 ml IV STAT PRN; Protocol PRN Reason: Hypoglycemia Protocol Docusate Sodium (Colace) 100 mg PO TID PRN PRN Reason: Constipation Ferrous Sulfate (Feosol Liq) 300 mg PO TID [facility] Last Admin: 05/23/18 10:19 Dose: 300 mg Furosemide (Lasix) 40 mg IVP Q12 [facility] Last Admin: 05/23/18 10:13 Dose: 40 mg Glipizide (Glucotrol) 5 mg PO ACB [facility] Last Admin: 05/23/18 10:20 Dose: 5 mg Guaifenesin (Robitussin) 100 mg PO Q4H PRN PRN Reason: Cough Heparin Sodium (Porcine) (Heparin) 5,000 units SC Q8 TRAVIS PRN Reason: Protocol Last Admin: 05/22/18 22:08 Dose: 5,000 units Milrinone Lactate/Dextrose (Primacor 20mg/100ml D5w) 100 mls @ 17.146 mls/hr IV .Q5H50M PRN; Protocol; 0.375 MCG/KG/MIN PRN Reason: TITRATE PER MD ORDER Last Admin: 05/23/18 07:52 Dose: 0.375 mcg/kg/min, 17.146 mls/hr Insulin Human Regular (Humulin R) 0 units SC ACHS [facility] PRN Reason: Protocol Last Admin: 05/23/18 08:15 Dose: Not Given Ipratropium [place] (Atrovent) 0.5 mg IH [id number] [facility] Last Admin: 05/23/18 07:35 Dose: 0.5 mg Lisinopril (Zestril) 2.5 mg PO DAILY [facility] Last Admin: 05/23/18 10:19 Dose: 2.5 mg Methylprednisolone (Solu-Medrol) 30 mg IVP DAILY [facility] Last Admin: 05/23/18 10:12 Dose: 30 mg Ondansetron HCl (Zofran Tab) 4 mg PO Q8H PRN PRN Reason: Nausea/Vomiting Pantoprazole Sodium (Protonix Ec Tab) 40 mg PO DAILY [facility] Last Admin: 05/23/18 10:19 Dose: 40 mg Polyethylene Glycol (Miralax) 17 gm PO DAILY PRN PRN Reason: Constipation Spironolactone (Aldactone) 25 mg PO DAILY [facility] Last Admin: 05/23/18 10:20 Dose: 25 mg - Labs Labs: 05/23/18 09:20 05/23/18 07:30 PT 21.4 SECONDS (9.4-12.5) H 05/09/18 17:00 INR 1.85 05/09/18 17:00 APTT 30.9 Seconds (25.1-36.5) 05/09/18 17:00 - Constitutional Appears: No Acute Distress - Head Exam Head Exam: ATRAUMATIC, NORMAL INSPECTION - Eye Exam Eye Exam: PERRL Pupil Exam: PERRL - Respiratory Exam Respiratory Exam: absent: Respiratory Distress Additional comments: decreased breath sounds, some expiratory wheezing appreciated on exam - Cardiovascular Exam Cardiovascular Exam: REGULAR RHYTHM, +S1, +S2 - GI/Abdominal Exam GI & Abdominal Exam: Normal Bowel Sounds. absent: Guarding, Rigid - Extremities Exam Additional comments: dry skin noted on lower extremities, peeling - Neurological Exam Neurological Exam: Alert, Awake, Oriented x3 - Skin Skin Exam: Normal Color, Warm Assessment and Plan - Assessment and Plan (Free Text) Assessment: This is a 52 year old male with PMH of CHF with last EF this month showing 39%, DM, COPD, CAD with stents, gout, HTN, and HLD presenting for management of acute hypercapnic respiratory failure 2/2 COPD exacerbation and acute on chronic systolic CHF. Patient admits to using bipap overnight. CO2 is improved today. Awaiting recommendations from palliative care and psych. Given one unit PRBC today. Plan: Acute hypercapnic respiratory failure 2/2 COPD exacerbation - ABG shows improved CO2 today. pH of 7.45, CO2 67, bicarb of 46.6 -continue with treatment of chest PT, mucomyst, bronchodilators and steroids -CT chest showed complete left lung collapse with volume loss secondary to endobronchial lesion vs. secretins in the distal left mainstem bronchus. Large right and small to moderate left pleural effusions. Diffuse anasarca with extensive abdominal body wall edema -Plan for bronchoscopy after weekend -Psych on consult, Dr. Burris, awaiting recommendations -awaiting recommendations from palliative care Acute on chronic systolic CHF -CXR today pending -CXR yesterday showed cardiomegaly and moderate to severe interstitial edema/ infection. Small B/L layering effusions -continuing with milrinone drip at this time to help edema -Echo on 05/10 showed mild concentric LVH, systolic function moderately impaired , septal hypokinesis, mild MR, moderate TR, mild pulmonary HTN, aortic root mildly enlarged -I/O: 2665/2850 with balance of -185cc -continue with lasix 40mg IV q12 and aldactone 25mg -Cardiology on consult, Dr. Suarez Anemia -Hg today is 6.8 from 7.2 yesterday -transfused one unit PRBC -FOBT is negative Sepsis with HCAP - resolved -CXR today is pending -WBC today is 12.3 from 9 yesterday -stopped antibiotics yesterday -blood culture negative after 5 days -ID on consult, Dr. Yaneli Lanza - improving -likely 2/2 CHF exacerbation -testicular US previously showed diffuse scrotal wall edema, small B/L hydroceles -scrotal swelling continues to be appreciated on physical exam, continuing with current management of diuresis -urology consulted, Dr. Zimmerman CAD -Cardiac cath in 12/2017 revealed EF 30% and LAD lesion 80%. Questionable follow up with cardiology -patient denies use of life vest -trop negative x2 on 05/09 -ASA 81, coreg 12.5mg BID -Cardiology on consult, Dr. Suarez Diabetes -accuchecks -hypoglycemia protocol -glipizide 5mg, insulin human regualar ACHS -heart healthy diet PPX with heparin and protonix Patient seen, case reviewed by and discussed with attending, Dr. Murry <Jamel Murry - Last Filed: 05/23/18 17:50> Objective - Vital Signs/Intake and Output Vital Signs (last 24 hours): Temp Pulse Resp BP Pulse Ox 99.2 F 90 18 101/68 95 05/23/18 15:37 05/23/18 17:38 05/23/18 15:37 05/23/18 17:38 05/23/18 10:00 Intake and Output: 05/23/18 05/23/18 06:59 18:59 Intake Total 2465 200 Output Total 2850 Balance -385 200 - Medications Medications: Current Medications Albuterol/Ipratropium (Duoneb 3 Mg/0.5 Mg (3 Ml) Ud) 3 ml IH Q2H PRN PRN Reason: Shortness of Breath Arformoterol Tartrate (Brovana) 15 mcg IH [id number] [facility] Last Admin: 05/23/18 07:35 Dose: 15 mcg Aspirin (Aspirin Chewable) 81 mg PO DAILY [facility] Last Admin: 05/23/18 10:20 Dose: 81 mg Atorvastatin Calcium (Lipitor) 20 mg PO HS [facility] Last Admin: 05/22/18 22:08 Dose: 20 mg Budesonide (Pulmicort Respules) 0.5 mg IH [id number] [facility] Last Admin: 05/23/18 07:35 Dose: 0.5 mg Carvedilol (Coreg) 12.5 mg PO BID [facility] Last Admin: 05/23/18 17:37 Dose: 12.5 mg Clonidine HCl (Catapres) 0.2 mg PO BID [facility] Last Admin: 05/23/18 17:38 Dose: 0.2 mg Dextrose (Dextrose 50% Inj) 0 ml IV STAT PRN; Protocol PRN Reason: Hypoglycemia Protocol Docusate Sodium (Colace) 100 mg PO TID PRN PRN Reason: Constipation Ferrous Sulfate (Feosol Liq) 300 mg PO TID [facility] Last Admin: 05/23/18 17:37 Dose: 300 mg Furosemide (Lasix) 40 mg IVP Q12 [facility] Last Admin: 05/23/18 10:13 Dose: 40 mg Glipizide (Glucotrol) 5 mg PO ACB [facility] Last Admin: 05/23/18 10:20 Dose: 5 mg Guaifenesin (Robitussin) 100 mg PO Q4H PRN PRN Reason: Cough Heparin Sodium (Porcine) (Heparin) 5,000 units SC Q8 [facility] PRN Reason: Protocol Last Admin: 05/23/18 14:06 Dose: 5,000 units Milrinone Lactate/Dextrose (Primacor 20mg/100ml D5w) 100 mls @ 17.146 mls/hr IV .Q5H50M PRN; Protocol; 0.375 MCG/KG/MIN PRN Reason: TITRATE PER MD ORDER Last Admin: 05/23/18 14:04 Dose: 0.375 mcg/kg/min, 17.146 mls/hr Insulin Human Regular (Humulin R) 0 units SC ACHS [facility] PRN Reason: Protocol Last Admin: 05/23/18 17:37 Dose: 1 unit Ipratropium [place] (Atrovent) 0.5 mg IH [id number] [facility] Last Admin: 05/23/18 13:41 Dose: 0.5 mg Lisinopril (Zestril) 2.5 mg PO DAILY [facility] Last Admin: 05/23/18 10:19 Dose: 2.5 mg Methylprednisolone (Solu-Medrol) 30 mg IVP DAILY [facility] Last Admin: 05/23/18 10:12 Dose: 30 mg Ondansetron HCl (Zofran Tab) 4 mg PO Q8H PRN PRN Reason: Nausea/Vomiting Pantoprazole Sodium (Protonix Ec Tab) 40 mg PO DAILY [facility] Last Admin: 05/23/18 10:19 Dose: 40 mg Polyethylene Glycol (Miralax) 17 gm PO DAILY PRN PRN Reason: Constipation Spironolactone (Aldactone) 25 mg PO DAILY [facility] Last Admin: 05/23/18 10:20 Dose: 25 mg - Labs Labs: 05/23/18 09:20 05/23/18 07:30 PT 21.4 SECONDS (9.4-12.5) H 05/09/18 17:00 INR 1.85 05/09/18 17:00 APTT 30.9 Seconds (25.1-36.5) 05/09/18 17:00 Attending/Attestation - Attestation I have personally seen and examined this patient.: Yes I have fully participated in the care of the patient.: Yes I have reviewed all pertinent clinical information, including history, physical exam and plan: Yes Notes (Text): 05/23/18 17:41 Attending note; Patient seen and examined with resident. Patient is alert and awake. Currently on oxygen nasal cannula. Patient agreed to use BiPAP at night. Patient is a 52 year old male with the past medical history significant for COPD, CAD, CHF, DM2, HTN, hperlipidemia, lumbar radiculopathy, and gout that presented to the emergency room with shortness of breath. 1. Acute respiratory failure. CO2 narcosis. CO2 i is decreasing. Patient agreed to wear BiPAP at night. Continue oxygen nasal cannula during daytime. Repeat chest x-ray showed decreased effusion. 2. Bilateral interstitial infiltrate; resolving.Continue Lasix 40 mg IV every 12 hours. Continue Aldactone. Continue milrinone drip. Patient is in negative balance . Continue to monitor ins and outs. Continue chest PT. 3. Healthcare acquired pneumonia. ID evaluation appreciated. S/P vancomycin and meropenem. Antibiotics stopped per ID. Continue guaifenesin as needed. Continue nebulizer treatments. Pulmonary evaluation appreciated. Continue Solu-Medrol. Continue Brovana, Pulmicort, and nebulizer treatments. 4. HIV 1 antibody positive, HIV fourth generation positive, likely false positive. CD4 count 747. Viral load not detected. ID evaluation appreciated. 5. CAD s/p stent placement. Patient non-compliant with medications and follow up with doctors. Contine Coreg, ASA, Lisinopril and Lipitor. 6. Hypertension. Continue Clonidine, lasix, Lisinopril, and Coreg. 7. DM2. Continue insulin sliding scale and glipizide. Continue to monitor accuchecks. 8. Hyperlipidemia. Continue Lipitor 9. Chronic anemia. No signs of acute bleeding. Hemoglobin is 6.8 today. Patient agreed for 1 unit of blood transfusion. No active bleeding noted. Stool for occult blood is negative. 10. Scrotal edema. Likely secondary to anasarca from decompensated CHF. Testicular ultrasound per radiologist shows diffuse scrotal wall edema, no drainable fluid collection, small bilateral hydroceles, no evidence for testicular torsion or mass. Urology evaluation appreciated. 11. GI/DVT prophylaxis. Protonix and heparin Case was discussed in detail with the patient regarding current diagnosis and treatment plan. We will get palliative care evaluation. Physical therapy evaluation requested. Will discuss with bilingual case manager for possible STEPHANIE placement. 05/23/18 17:49
--- NOTE | 2018-05-23 14:10 | PN ---
Copied To: Beny Salgado MD Attending MD: Beny Salgado MD DATE: 05/23/2018 SUBJECTIVE: The patient is mildly short of breath. PHYSICAL EXAMINATION: VITAL SIGNS: Blood pressure 116/72, heart rate 102, temperature 98.6, respirations 18. HEENT: Pale conjunctivae. CHEST: Bilateral rhonchi. HEART: S1 and S2 regular. EXTREMITIES: 1+ pitting edema. LABORATORY DATA: Today's hemoglobin and hematocrit 6.8 and 25.3, white count 12.3, platelet count 153,000. Today's SMA-7: Sodium 142, potassium was 3.5, chloride 91, CO2 45, glucose 123, BUN 27, creatinine 0.7. ASSESSMENT: 1. Biventricular failure. 2. Pneumonia. 3. Chronic obstructive lung disease. 4. Worsening anemia. 5. Bilateral pleural effusion. 6. Hypokalemia. 7. Uncontrolled diabetes mellitus. RECOMMENDATIONS: Continue Aldactone 25 mg once a day, aspirin 81 mg once a day, clonidine 0.2 mg twice a day, Coreg 12.5 mg twice a day, glipizide 5 mg once a day, subcutaneous heparin 5000 units every 8 hours, Lasix 40 mg intravenously twice a day, milrinone infusion, Zestril 2.5 mg once a day. Case was discussed with Dr. Murry and patient agreed to receive one unit of packed RBC transfusion and we will receive an additional dose of Lasix 40 mg via transfusion. In the meantime, the patient will receive K-Dur 20 mEq orally at a single dose now. Beny Salgado MD
--- NOTE | 2018-05-23 16:09 | PCM.URO ---
Urology Progress Note - Objective Lab Studies: Reviewed (gu dx:scrotal edema gu plans:scrotal elevation) Lab Results Last 24 Hours: Laboratory Results - last 24 hr 05/22/18 05/22/18 05/23/18 16:17 21:10 07:13 WBC RBC Hgb Hct MCV MCH MCHC RDW Plt Count Gran % Lymph % (Auto) [place] % (Auto) Eos % (Auto) Baso % (Auto) Gran # Lymph # (Auto) [place] # (Auto) Eos # (Auto) Baso # (Auto) pCO2 pO2 HCO3 ABG pH ABG Total CO2 ABG O2 Saturation ABG O2 Content ABG Base Excess ABG Hemoglobin ABG Carboxyhemoglobin POC ABG HHb (Measured) ABG Methemoglobin ABG O2 Capacity Hgb O2 Saturation FiO2 Sodium Potassium Chloride Carbon Dioxide Anion Gap BUN Creatinine Est GFR ( Amer) Est GFR (Non-Af Amer) POC Glucose (mg/dL) 128 H 245 H 121 H Random Glucose Calcium Phosphorus Magnesium Total Bilirubin AST ALT Alkaline Phosphatase Total Protein Albumin Globulin Albumin/Globulin Ratio Blood Type Blood Type Confirm Antibody Screen Crossmatch BBK History Checked 05/23/18 05/23/18 05/23/18 07:30 07:30 08:15 WBC 12.3 H D RBC 3.35 L Hgb 6.8 L* Hct 25.6 L MCV 76.4 L MCH 20.3 L MCHC 26.6 L RDW 25.9 H Plt Count 153 Gran % 70.2 H Lymph % (Auto) 20.4 L [place] % (Auto) 8.6 H Eos % (Auto) 0.7 L Baso % (Auto) 0.1 Gran # 8.65 H Lymph # (Auto) 2.5 [place] # (Auto) 1.1 H Eos # (Auto) 0.1 Baso # (Auto) 0.01 pCO2 67 H pO2 54.0 L HCO3 46.6 H* ABG pH 7.45 ABG Total CO2 48.7 H ABG O2 Saturation 91.9 L ABG O2 Content 8.6 L ABG Base Excess 20.5 H ABG Hemoglobin 6.8 L ABG Carboxyhemoglobin 2.9 H POC ABG HHb (Measured) 7.8 H ABG Methemoglobin 0.4 ABG O2 Capacity 9.4 L Hgb O2 Saturation 88.9 L FiO2 32.0 Sodium 142 Potassium 3.5 L Chloride 91 L Carbon Dioxide 45 H Anion Gap 10 BUN 27 H Creatinine 0.7 L Est GFR ( Amer) > 60 Est GFR (Non-Af Amer) > 60 POC Glucose (mg/dL) Random Glucose 123 H Calcium 8.2 L Phosphorus 2.5 Magnesium 1.7 Total Bilirubin 0.6 AST 28 ALT 32 Alkaline Phosphatase 241 H Total Protein 5.9 Albumin 2.9 L Globulin 3.0 Albumin/Globulin Ratio 1.0 L Blood Type Blood Type Confirm Antibody Screen Crossmatch BBK History Checked 05/23/18 05/23/18 05/23/18 09:20 10:15 11:00 WBC RBC Hgb 6.8 L* Hct 25.3 L MCV MCH MCHC RDW Plt Count Gran % Lymph % (Auto) [place] % (Auto) Eos % (Auto) Baso % (Auto) Gran # Lymph # (Auto) [place] # (Auto) Eos # (Auto) Baso # (Auto) pCO2 pO2 HCO3 ABG pH ABG Total CO2 ABG O2 Saturation ABG O2 Content ABG Base Excess ABG Hemoglobin ABG Carboxyhemoglobin POC ABG HHb (Measured) ABG Methemoglobin ABG O2 Capacity Hgb O2 Saturation FiO2 Sodium Potassium Chloride Carbon Dioxide Anion Gap BUN Creatinine Est GFR ( Amer) Est GFR (Non-Af Amer) POC Glucose (mg/dL) Random Glucose Calcium Phosphorus Magnesium Total Bilirubin AST ALT Alkaline Phosphatase Total Protein Albumin Globulin Albumin/Globulin Ratio Blood Type A POSITIVE Blood Type Confirm A POSITIVE Antibody Screen Negative Crossmatch See Detail BBK History Checked No verified bt 05/23/18 11:21 WBC RBC Hgb Hct MCV MCH MCHC RDW Plt Count Gran % Lymph % (Auto) [place] % (Auto) Eos % (Auto) Baso % (Auto) Gran # Lymph # (Auto) [place] # (Auto) Eos # (Auto) Baso # (Auto) pCO2 pO2 HCO3 ABG pH ABG Total CO2 ABG O2 Saturation ABG O2 Content ABG Base Excess ABG Hemoglobin ABG Carboxyhemoglobin POC ABG HHb (Measured) ABG Methemoglobin ABG O2 Capacity Hgb O2 Saturation FiO2 Sodium Potassium Chloride Carbon Dioxide Anion Gap BUN Creatinine Est GFR ( Amer) Est GFR (Non-Af Amer) POC Glucose (mg/dL) 163 H Random Glucose Calcium Phosphorus Magnesium Total Bilirubin AST ALT Alkaline Phosphatase Total Protein Albumin Globulin Albumin/Globulin Ratio Blood Type Blood Type Confirm Antibody Screen Crossmatch BBK History Checked Intake & Output: Intake & Output 05/22/18 05/23/18 05/23/18 18:59 06:59 18:59 Intake Total 200 2465 200 Output Total 2850 Balance 200 -385 200 Intake: IV 200 405 200 Right Upper arm 205 Oral 2060 Blood Product 0 Red Blood Cells Cpd As1 0 Lr Unit [id number] Output: Urine 2850 Urine, Voided 2850 Other: # Bowel Movements 0 Vital Signs: Vital Signs - 24 hr 05/22/18 05/22/18 05/22/18 17:46 17:47 18:00 Temperature 98.7 F Pulse Rate 101 H 101 H 101 H Respiratory 18 Rate Blood Pressure 106/67 106/67 106/67 O2 Sat by Pulse 88 L Oximetry 05/22/18 05/22/18 05/22/18 18:48 19:57 22:00 Temperature Pulse Rate 102 H 109 H Respiratory Rate Blood Pressure 125/76 O2 Sat by Pulse 93 L Oximetry 05/22/18 05/23/18 05/23/18 22:08 00:00 00:01 Temperature 98.8 F Pulse Rate 100 H 62 Respiratory 18 Rate Blood Pressure 124/75 108/62 O2 Sat by Pulse 95 Oximetry 05/23/18 05/23/18 05/23/18 01:43 02:00 06:00 Temperature 98.6 F Pulse Rate 62 99 H 87 Respiratory 18 Rate Blood Pressure 108/62 114/73 O2 Sat by Pulse 95 Oximetry 05/23/18 05/23/18 05/23/18 08:00 10:00 10:13 Temperature Pulse Rate 100 H 102 H Respiratory 18 18 Rate Blood Pressure 108/65 116/72 116/72 O2 Sat by Pulse 95 95 Oximetry 05/23/18 05/23/18 05/23/18 10:19 10:20 12:00 Temperature 99.3 F Pulse Rate 102 H 102 H 97 H Respiratory 18 Rate Blood Pressure 116/72 116/72 116/69 O2 Sat by Pulse Oximetry 05/23/18 05/23/18 05/23/18 14:00 14:29 14:34 Temperature 98.8 F Pulse Rate 98 H 98 H Respiratory 18 Rate Blood Pressure 121/70 121/70 O2 Sat by Pulse Oximetry 05/23/18 05/23/18 14:52 15:37 Temperature 98.9 F 99.2 F Pulse Rate 91 H 92 H Respiratory 18 18 Rate Blood Pressure 123/71 124/73 O2 Sat by Pulse Oximetry
[2018-05-24] MEDS: Ipratropium 0.02% Inhal Soln (0.5 mg/2.5 ml) UD IH SCH ×4 (02:15→19:59)
[2018-05-24] MEDS: Milrinone 20mg/100ml D5W 100 ML IV PRN ×2 (04:33→10:40)
[2018-05-24] MEDS: Arformoterol 15 mcg/2 ml Inh Sol IH SCH ×2 (07:18→19:59)
[2018-05-24] MEDS: Budesonide 0.5 mg/2 ml Inhal Susp UD IH SCH ×2 (07:18→19:59)
[2018-05-24] MEDS: Insulin Regular 1 UNITS/0.01 ML ML SC SCH ×4 (07:30→22:18)
--- NOTE | 2018-05-24 08:50 | PN ---
Copied To: Harris Todd MD Attending MD: Harris Todd MD DATE: 05/23/2018 SUBJECTIVE: The patient is in bed in no acute distress, nontoxic. PHYSICAL EXAMINATION: VITAL SIGNS: Temperature is 98, blood pressure is 114/70, respiratory rate of 18. HEENT: Unremarkable. NECK: Supple. LUNGS: Have decreased breath sounds. HEART: Normal S1, S2. ABDOMEN: Soft, nontender. LABORATORY EXAMINATION: Reveals a white count of 12,300 and hemoglobin of 6.8, platelets of 153. Chemistries reveals a BUN of 27, creatinine of 0.7. Procalcitonin is 0.09. Urinalysis is noted and CD-4 count is noted. Microbiology is noted. Blood cultures are negative. ASSESSMENT AND PLAN: This is a 52-year-old male who was seen earlier today in [facility], bed #1 with morbid obesity, BMI of 42, hypoxia, hypercapnia, respiratory failure, acute decompensated congestive heart failure, chronic obstructive lung disease and positive human immunodeficiency virus is probably a false positive with a negative human immunodeficiency virus polymerase chain reaction, normal T cells. The patient had developed sepsis and healthcare-associated pneumonia with a complete opacification had been treated with the antibiotics and meropenem and now is off of antibiotics, doing well and no fevers. The patient is on Solu-Medrol at 30 mg IV daily which may explain the new leukocytosis of 12,300 today. We will follow with you. We will continue the patient to be off of antibiotics. We will repeat pancultures, blood, urine, sputum and we will order a procalcitonin, urinalysis. The patient did have a chest x-ray which is no changes. We will make further recommendations upon the availability of initial and repeat panculture results and procalcitonin. We will review the chest x-ray, mild leukocytosis most likely secondary to the Solu-Medrol, currently off of antibiotics. Harris Todd MD
--- NOTE | 2018-05-24 09:05 | PN ---
Copied To: Harris Todd MD Attending MD: Harris Todd MD DATE: 05/22/2018 SUBJECTIVE: The patient is in bed, in no acute distress. PHYSICAL EXAMINATION: VITAL SIGNS: On exam, temperature is 98, blood pressure is 120/80, respiratory rate of 20, heart rate of 88. HEENT: Examination of HEENT is unremarkable. NECK: Supple. LUNGS: Have decreased breath sounds. ABDOMEN: Soft, nontender. No organomegaly. No rebound or guarding. No masses. LABORATORY DATA: Reveals a white count of 9, hemoglobin of 7, platelets of 144. Chemistries reveals a BUN of 33, creatinine of 0.8, alkaline phosphatase is 252 and urinalysis is noted and T cells are noted. HIV is reviewed. Review of orders reveals the patient is off of antibiotics. The patient is on Solu-Medrol. ASSESSMENT AND PLAN: A 52-year-old male, seen earlier today with morbid obesity, body mass index of 42, who was admitted with hypoxia, hypercapnia, respiratory failure, acute decompensated congestive heart failure, chronic obstructive lung disease. The patient's human immunodeficiency virus is probably a false positive, Britney with a negative PCR, normal T cells, who developed sepsis, healthcare-associated pneumonia and complete opacification, had completed the meropenem therapy and with negative procalcitonin x2. Now off of antibiotics, afebrile, comfortable. He is at risk for developing nosocomial infections. Harris Todd MD
[2018-05-24] MEDS: Ferrous Sulfate 300 mg/5 mL Liq UD PO SCH ×3 (09:30→17:13)
[2018-05-24] MEDS: Pantoprazole 40 mg EC Tab PO SCH (09:31)
[2018-05-24] MEDS: MethylPREDNISolone 40 mg Vial IVP SCH (09:31)
[2018-05-24 10:22] LABS: BASO # 0.01 K/mm3 (0.0-2.0); BASO % 0.1 % (0.0-3.0); EOS # 0.1 (0.0-0.7); EOS % 0.8 % (1.5-5.0); GRAN # 6.7 (1.4-6.5); GRAN % 65.8 % (50.0-68.0); HEMOGLOBIN 7.3 g/dL (14.0-18.0); LYMPH # 2.5 (1.2-3.4); LYMPH % 24.6 % (22.0-35.0); MEAN CELL VOLUME 76.9 fl (80.0-105.0); MEAN CORPUSCULAR HEMOGLOBIN 21.1 pg (25.0-35.0); MEAN CORPUSCULAR HGB CONC 27.4 g/dl (31.0-37.0); MEAN PLATELET VOLUME 9.4 fl (7.0-11.0); MONO # 0.9 (0.1-0.6); MONO % 8.7 % (1.0-6.0); RBC 3.46 10^6/uL (3.5-6.1); RED CELL DISTRIBUTION WIDTH 25.7 % (11.5-14.5); WHITE BLOOD COUNT 10.2 10^3/ul (4.5-11.0)
[2018-05-24 10:36] LABS: ALBUMIN 3.1 g/dL (3.0-4.8); ALT/SGPT 31 U/L (7-56); AST/SGOT 39 U/L (17-59); BLOOD UREA NITROGEN 27 mg/dL (7-21); CALCIUM 8.3 mg/dL (8.4-10.5); GFR NON-AFRICAN AMERICAN > 60
--- NOTE | 2018-05-24 12:54 | CP.PCM.PN ---
<OlamideDianna makallyssa - Last Filed: 05/24/18 16:56> Subjective - Date & Time of Evaluation Date of Evaluation: 05/24/18 Time of Evaluation: 12:46 - Subjective Subjective: Rc Wong, PGY-1 Progress Note for Hospitalist Service Patient seen and examined at bedside this morning. No acute events overnight. Refused bipap overnight. Refused blood work this morning, but after discussion, agreed to once per day blood draw. Psych consulted for agitation and GI consulted for positive FOBT and dropping Hg. Awaiting palliative care recommendations. Offers no new complaints at this time. Objective - Vital Signs/Intake and Output Vital Signs (last 24 hours): Temp Pulse Resp BP Pulse Ox 98.4 F 93 H 20 110/75 92 L 05/24/18 11:45 05/24/18 11:45 05/24/18 11:45 05/24/18 11:45 05/24/18 08:00 Intake and Output: 05/24/18 05/24/18 06:59 18:59 Intake Total 880 100 Output Total 500 Balance 380 100 - Medications Medications: Current Medications Albuterol/Ipratropium (Duoneb 3 Mg/0.5 Mg (3 Ml) Ud) 3 ml IH Q2H PRN PRN Reason: Shortness of Breath Arformoterol Tartrate (Brovana) 15 mcg IH [id number] [facility] Last Admin: 05/24/18 07:18 Dose: 15 mcg Aspirin (Aspirin Chewable) 81 mg PO DAILY [facility] Last Admin: 05/23/18 10:20 Dose: 81 mg Atorvastatin Calcium (Lipitor) 20 mg PO HS [facility] Last Admin: 05/23/18 22:10 Dose: 20 mg Budesonide (Pulmicort Respules) 0.5 mg IH [id number] [facility] Last Admin: 05/24/18 07:18 Dose: 0.5 mg Carvedilol (Coreg) 12.5 mg PO BID [facility] Last Admin: 05/24/18 09:29 Dose: 12.5 mg Clonidine HCl (Catapres) 0.2 mg PO BID [facility] Last Admin: 05/24/18 09:29 Dose: 0.2 mg Dextrose (Dextrose 50% Inj) 0 ml IV STAT PRN; Protocol PRN Reason: Hypoglycemia Protocol Docusate Sodium (Colace) 100 mg PO TID PRN PRN Reason: Constipation Ferrous Sulfate (Feosol Liq) 300 mg PO TID [facility] Last Admin: 05/24/18 09:30 Dose: 300 mg Furosemide (Lasix) 40 mg IVP Q12 [facility] Last Admin: 05/24/18 09:31 Dose: 40 mg Glipizide (Glucotrol) 5 mg PO ACB [facility] Last Admin: 05/24/18 09:30 Dose: 5 mg Guaifenesin (Robitussin) 100 mg PO Q4H PRN PRN Reason: Cough Heparin Sodium (Porcine) (Heparin) 5,000 units SC Q12 [facility] PRN Reason: Protocol Last Admin: 05/24/18 09:30 Dose: Not Given Milrinone Lactate/Dextrose (Primacor 20mg/100ml D5w) 100 mls @ 17.146 mls/hr IV .Q5H50M PRN; Protocol; 0.375 MCG/KG/MIN PRN Reason: TITRATE PER MD ORDER Last Admin: 05/24/18 10:40 Dose: 0.375 mcg/kg/min, 17.146 mls/hr Insulin Human Regular (Humulin R) 0 units SC ACHS [facility] PRN Reason: Protocol Last Admin: 05/24/18 11:31 Dose: 1 unit Ipratropium [place] (Atrovent) 0.5 mg IH [id number] [facility] Last Admin: 05/24/18 07:18 Dose: 0.5 mg Lisinopril (Zestril) 2.5 mg PO DAILY [facility] Last Admin: 05/24/18 09:32 Dose: 2.5 mg Methylprednisolone (Solu-Medrol) 30 mg IVP DAILY [facility] Last Admin: 05/24/18 09:31 Dose: 30 mg Ondansetron HCl (Zofran Tab) 4 mg PO Q8H PRN PRN Reason: Nausea/Vomiting Pantoprazole Sodium (Protonix Ec Tab) 40 mg PO DAILY [facility] Last Admin: 05/24/18 09:31 Dose: 40 mg Polyethylene Glycol (Miralax) 17 gm PO DAILY PRN PRN Reason: Constipation Spironolactone (Aldactone) 25 mg PO DAILY [facility] Last Admin: 05/24/18 09:28 Dose: 25 mg - Labs Labs: 05/24/18 10:15 05/24/18 10:15 PT 21.4 SECONDS (9.4-12.5) H 05/09/18 17:00 INR 1.85 05/09/18 17:00 APTT 30.9 Seconds (25.1-36.5) 05/09/18 17:00 - Constitutional Appears: No Acute Distress - Head Exam Head Exam: ATRAUMATIC, NORMAL INSPECTION - Eye Exam Eye Exam: EOMI Pupil Exam: PERRL - ENT Exam ENT Exam: Mucous Membranes Moist - Respiratory Exam Respiratory Exam: absent: Respiratory Distress Additional comments: decreased breath sounds, some expiratory wheezing noted on exam - Cardiovascular Exam Cardiovascular Exam: REGULAR RHYTHM, +S1, +S2 - GI/Abdominal Exam GI & Abdominal Exam: Normal Bowel Sounds. absent: Guarding, Rigid Additional comments: globular abdomen - Extremities Exam Extremities Exam: Normal Inspection. absent: Calf Tenderness Additional comments: dry peeling skin B/L - Neurological Exam Neurological Exam: Alert, Awake, Oriented x3 - Skin Skin Exam: Dry, Normal Color Assessment and Plan - Assessment and Plan (Free Text) Assessment: This is a 52 year old male with PMH of CHF with last EF this month showing 39%, DM, COPD, CAD with stents, gout, HTN, and HLD presenting for management of acute hypercapnic respiratory failure 2/2 COPD exacerbation and acute on chronic systolic CHF. Patient refused bipapap overnight. CO2 is improved today. Awaiting further recommendations from GI, palliative care and psych. Hg improved to 7.3 today after one unit PRBC yesterday. Plan: Acute hypercapnic respiratory failure 2/2 COPD exacerbation -Plan for bronchoscopy unknown at this time, will discuss with pulmonary team -ABG yesterday shows improved CO2; pH of 7.45, CO2 67, bicarb of 46.6 -continue with treatment of chest PT, mucomyst, bronchodilators and steroids -CT chest showed complete left lung collapse with volume loss secondary to endobronchial lesion vs. secretins in the distal left mainstem bronchus. Large right and small to moderate left pleural effusions. Diffuse anasarca with extensive abdominal body wall edema -Psych on consult, Dr. Burris, awaiting recommendations -Palliative care consult for patient's DNI/DNR status Acute on chronic systolic CHF -CXR today final read pending -CXR 05/22 showed cardiomegaly and moderate to severe interstitial edema/ infection. Small B/L layering effusions -continuing with milrinone drip at this time to help edema -Echo on 05/10 showed mild concentric LVH, systolic function moderately impaired , septal hypokinesis, mild MR, moderate TR, mild pulmonary HTN, aortic root mildly enlarged -I/O: 3047/1974 with positive balance of 1072cc -continue with lasix 40mg IV q12 and aldactone 25mg -Cardiology on consult, Dr. Suarez Anemia -Hg today is 7.3 today from 6.8 yesterday -s/p one unit PRBC united 05/23 -FOBT positive 05/23 -GI on consult, Dr. Booker Sepsis with HCAP - resolved -CXR showed small B/L pleural infiltrate -WBC today is 10.2 from 12.3 yesterday -stopped antibiotics stopped 05/22. S/p vancomycin and merrem -blood culture negative after 5 days -ID on consult, Dr. Yaneli Lanza - improving -likely 2/2 CHF exacerbation -testicular US previously showed diffuse scrotal wall edema, small B/L hydroceles -scrotal swelling continues to be appreciated on physical exam, continuing with current management of diuresis -urology consulted, Dr. Zimmerman CAD -Cardiac cath in 12/2017 revealed EF 30% and LAD lesion 80%. Questionable follow up with cardiology -patient denies use of life vest -trop negative x2 on 05/09 -ASA 81, coreg 12.5mg BID -Cardiology on consult, Dr. Suarez Diabetes -accuchecks -hypoglycemia protocol -glipizide 5mg, insulin human regualar ACHS -heart healthy diet PPX with heparin and protonix Patient seen, case reviewed by and discussed with attending, Dr. Murry <Jamel Murry - Last Filed: 05/25/18 14:46> Objective - Vital Signs/Intake and Output Vital Signs (last 24 hours): Temp Pulse Resp BP Pulse Ox 98.4 F 90 20 129/90 96 05/25/18 11:51 05/25/18 11:51 05/25/18 11:51 05/25/18 11:51 05/25/18 05:25 Intake and Output: 05/25/18 05/25/18 06:59 18:59 Intake Total 1240 Output Total 1150 Balance 90 - Medications Medications: Current Medications Acetaminophen (Tylenol 325mg Tab) 650 mg PO Q6H PRN PRN Reason: Pain, moderate (4-7) Last Admin: 05/24/18 18:06 Dose: 650 mg Albuterol/Ipratropium (Duoneb 3 Mg/0.5 Mg (3 Ml) Ud) 3 ml IH Q2H PRN PRN Reason: Shortness of Breath Arformoterol Tartrate (Brovana) 15 mcg IH [id number] [facility] Last Admin: 05/25/18 07:27 Dose: 15 mcg Aspirin (Aspirin Chewable) 81 mg PO DAILY [facility] Last Admin: 05/25/18 10:13 Dose: 81 mg Atorvastatin Calcium (Lipitor) 20 mg PO HS [facility] Last Admin: 05/25/18 01:22 Dose: Not Given Budesonide (Pulmicort Respules) 0.5 mg IH [id number] [facility] Last Admin: 05/25/18 07:27 Dose: 0.5 mg Carvedilol (Coreg) 12.5 mg PO BID [facility] Last Admin: 05/25/18 10:14 Dose: 12.5 mg Clonidine HCl (Catapres) 0.2 mg PO BID [facility] Last Admin: 05/25/18 10:12 Dose: 0.2 mg Docusate Sodium (Colace) 100 mg PO TID PRN PRN Reason: Constipation Ferrous Sulfate (Feosol Liq) 300 mg PO TID [facility] Last Admin: 05/25/18 10:11 Dose: 300 mg Furosemide (Lasix) 40 mg PO DAILY [facility] Last Admin: 05/25/18 10:13 Dose: 40 mg Glipizide (Glucotrol) 5 mg PO ACB [facility] Last Admin: 05/25/18 08:20 Dose: 5 mg Guaifenesin (Robitussin) 100 mg PO Q4H PRN PRN Reason: Cough Heparin Sodium (Porcine) (Heparin) 5,000 units SC Q12 [facility] PRN Reason: Protocol Last Admin: 05/24/18 09:30 Dose: Not Given Insulin Human Regular (Humulin R) 0 units SC [facility] PRN Reason: Protocol Last Admin: 05/25/18 08:20 Dose: Not Given Ipratropium [place] (Atrovent) 0.5 mg IH [id number] [facility] Last Admin: 05/25/18 13:26 Dose: 0.5 mg Lisinopril (Zestril) 2.5 mg PO DAILY [facility] Last Admin: 05/25/18 10:12 Dose: 2.5 mg Methylprednisolone (Solu-Medrol) 30 mg IVP DAILY [facility] Last Admin: 05/25/18 10:13 Dose: 30 mg Ondansetron HCl (Zofran Tab) 4 mg PO Q8H PRN PRN Reason: Nausea/Vomiting Pantoprazole Sodium (Protonix Ec Tab) 40 mg PO DAILY [facility] Stop: 05/25/18 23:59 Last Admin: 05/25/18 10:13 Dose: 40 mg Polyethylene Glycol (Miralax) 17 gm PO DAILY PRN PRN Reason: Constipation Spironolactone (Aldactone) 25 mg PO DAILY [facility] Last Admin: 05/25/18 10:11 Dose: 25 mg - Labs Labs: 05/25/18 07:30 05/25/18 07:30 PT 21.4 SECONDS (9.4-12.5) H 05/09/18 17:00 INR 1.85 05/09/18 17:00 APTT 30.9 Seconds (25.1-36.5) 05/09/18 17:00 Attending/Attestation - Attestation I have personally seen and examined this patient.: Yes I have fully participated in the care of the patient.: Yes I have reviewed all pertinent clinical information, including history, physical exam and plan: Yes Notes (Text): 05/25/18 14:44 Attending note; Patient seen and examined with resident. Patient is alert and awake. Currently on oxygen nasal cannula. patient uses BiPAP at night. Patient is a 52 year old male with the past medical history significant for COPD, CAD, CHF, DM2, HTN, hperlipidemia, lumbar radiculopathy, and gout that presented to the emergency room with shortness of breath. 1. Acute respiratory failure due to CO2 narcosis. CO2 is decreasing. Patient agreed to wear BiPAP at night. Continue oxygen nasal cannula during daytime. Repeat chest x-ray showed decreased effusion. 2. Bilateral interstitial infiltrate; resolving.Continue Lasix 40 mg IV every 12 hours. Continue Aldactone. Continue milrinone drip. Patient is in negative balance . Continue to monitor ins and outs. Continue chest PT. 3. Healthcare acquired pneumonia. ID evaluation appreciated. S/P vancomycin and meropenem. Antibiotics stopped per ID. Continue guaifenesin as needed. Continue nebulizer treatments. Pulmonary evaluation appreciated. Continue Solu-Medrol. Continue Brovana, Pulmicort, and nebulizer treatments. 4. HIV 1 antibody positive, HIV fourth generation positive, likely false positive. CD4 count 747. Viral load not detected. ID evaluation appreciated. 5. CAD s/p stent placement. Patient non-compliant with medications and follow up with doctors. Contine Coreg, ASA, Lisinopril and Lipitor. 6. Hypertension. Continue Clonidine, lasix, Lisinopril, and Coreg. 7. DM2. Continue insulin sliding scale and glipizide. Continue to monitor accuchecks. 8. Hyperlipidemia. Continue Lipitor 9. Chronic anemia. No signs of acute bleeding. Hemoglobin is 6.8 today. got 1 unit of blood transfusion. repeat stool occult blood is positive. GI evaluation requested. Currently no active bleeding. 10. Scrotal edema. Likely secondary to anasarca from decompensated CHF. Testicular ultrasound per radiologist shows diffuse scrotal wall edema, no drainable fluid collection, small bilateral hydroceles, no evidence for testicular torsion or mass. Urology evaluation appreciated. scrotal elevation recommended. Physical therapy evaluation appreciated. Will discuss with manager rn case for possible STEPHANIE placement.
--- NOTE | 2018-05-24 13:06 | RAD ---
Date of service: 05/23/2018 HISTORY: atelectasis COMPARISON: No prior. FINDINGS: LUNGS: No definite infiltrate. Limited examination due to patient body habitus. PLEURA: Probable small bilateral pleural effusion. No pneumothorax. CARDIOVASCULAR: Grossly normal heart size. Magnified due to portable technique. No congestive change. OSSEOUS STRUCTURES: No significant abnormalities. VISUALIZED UPPER ABDOMEN: Normal. OTHER FINDINGS: None. IMPRESSION: Small bilateral pleural effusion. No definite infiltrate. Limited examination
--- NOTE | 2018-05-24 14:43 | CP.PCM.PN ---
Subjective - Date & Time of Evaluation Date of Evaluation: 05/24/18 Time of Evaluation: 14:36 - Subjective Subjective: Patient seen and examined at bedside, resting comfortably on 2LNC. No major complaints. Objective - Vital Signs/Intake and Output Vital Signs (last 24 hours): Temp Pulse Resp BP Pulse Ox 98.4 F 99 H 20 110/75 92 L 05/24/18 11:45 05/24/18 14:00 05/24/18 11:45 05/24/18 11:45 05/24/18 08:00 Intake and Output: 05/24/18 05/24/18 06:59 18:59 Intake Total 880 100 Output Total 500 Balance 380 100 - Medications Medications: Current Medications Albuterol/Ipratropium (Duoneb 3 Mg/0.5 Mg (3 Ml) Ud) 3 ml IH Q2H PRN PRN Reason: Shortness of Breath Arformoterol Tartrate (Brovana) 15 mcg IH [id number] [facility] Last Admin: 05/24/18 07:18 Dose: 15 mcg Aspirin (Aspirin Chewable) 81 mg PO DAILY [facility] Last Admin: 05/23/18 10:20 Dose: 81 mg Atorvastatin Calcium (Lipitor) 20 mg PO HS [facility] Last Admin: 05/23/18 22:10 Dose: 20 mg Budesonide (Pulmicort Respules) 0.5 mg IH [id number] [facility] Last Admin: 05/24/18 07:18 Dose: 0.5 mg Carvedilol (Coreg) 12.5 mg PO BID [facility] Last Admin: 05/24/18 09:29 Dose: 12.5 mg Clonidine HCl (Catapres) 0.2 mg PO BID [facility] Last Admin: 05/24/18 09:29 Dose: 0.2 mg Dextrose (Dextrose 50% Inj) 0 ml IV STAT PRN; Protocol PRN Reason: Hypoglycemia Protocol Docusate Sodium (Colace) 100 mg PO TID PRN PRN Reason: Constipation Ferrous Sulfate (Feosol Liq) 300 mg PO TID [facility] Last Admin: 05/24/18 13:15 Dose: 300 mg Glipizide (Glucotrol) 5 mg PO ACB [facility] Last Admin: 05/24/18 09:30 Dose: 5 mg Guaifenesin (Robitussin) 100 mg PO Q4H PRN PRN Reason: Cough Heparin Sodium (Porcine) (Heparin) 5,000 units SC Q12 [facility] PRN Reason: Protocol Last Admin: 05/24/18 09:30 Dose: Not Given Milrinone Lactate/Dextrose (Primacor 20mg/100ml D5w) 100 mls @ 17.146 mls/hr IV .Q5H50M PRN; Protocol; 0.375 MCG/KG/MIN PRN Reason: TITRATE PER MD ORDER Last Admin: 05/24/18 10:40 Dose: 0.375 mcg/kg/min, 17.146 mls/hr Insulin Human Regular (Humulin R) 0 units SC ACHS [facility] PRN Reason: Protocol Last Admin: 05/24/18 11:31 Dose: 1 unit Ipratropium [place] (Atrovent) 0.5 mg IH [id number] [facility] Last Admin: 05/24/18 13:24 Dose: 0.5 mg Lisinopril (Zestril) 2.5 mg PO DAILY [facility] Last Admin: 05/24/18 09:32 Dose: 2.5 mg Methylprednisolone (Solu-Medrol) 30 mg IVP DAILY [facility] Last Admin: 05/24/18 09:31 Dose: 30 mg Ondansetron HCl (Zofran Tab) 4 mg PO Q8H PRN PRN Reason: Nausea/Vomiting Pantoprazole Sodium (Protonix Ec Tab) 40 mg PO DAILY [facility] Last Admin: 05/24/18 09:31 Dose: 40 mg Polyethylene Glycol (Miralax) 17 gm PO DAILY PRN PRN Reason: Constipation Spironolactone (Aldactone) 25 mg PO DAILY [facility] Last Admin: 05/24/18 09:28 Dose: 25 mg - Labs Labs: 05/24/18 10:15 05/24/18 10:15 PT 21.4 SECONDS (9.4-12.5) H 05/09/18 17:00 INR 1.85 05/09/18 17:00 APTT 30.9 Seconds (25.1-36.5) 05/09/18 17:00 - Constitutional Appears: Non-toxic, No Acute Distress - Head Exam Head Exam: NORMAL INSPECTION - Eye Exam Eye Exam: Normal appearance - ENT Exam ENT Exam: Mucous Membranes Moist - Neck Exam Neck Exam: Full ROM - Respiratory Exam Respiratory Exam: Decreased Breath Sounds, NORMAL BREATHING PATTERN - Cardiovascular Exam Cardiovascular Exam: REGULAR RHYTHM, +S1, +S2 - GI/Abdominal Exam GI & Abdominal Exam: Soft, Normal Bowel Sounds - Extremities Exam Extremities Exam: Pedal Edema - Neurological Exam Neurological Exam: Alert, Awake, Oriented x3 - Psychiatric Exam Psychiatric exam: Normal Affect - Skin Skin Exam: Normal Color, Warm Assessment and Plan - Assessment and Plan (Free Text) Assessment: 52yo male with COPD, CAD, CHF, with COPD exacerbation, CHF exacerbation, HCAP, chronic resp acidosis - currently afebrile, HD stable, comfortable on 2LNC, speaking full sentences, AAOx3, NAD - CXR 05/23/18, with decreasing pulm congestion, small bilateral pleural effusions , ABG with chronic compensated resp acidosis - cont BIPAP at night - Lasix IV diuresis, Milrinone as per cardiology - Abx as per ID - Douonebs PRN, Cont with Brovana, Pulmicort, switch IV Solumedrol to Prednisone 40mg daily with taper - will need outpatient Sleep study, PFTs, cardiology follow up - counseled on smoking cessation - PT/OT, OOB to chair - DVT ppx
--- NOTE | 2018-05-24 15:02 | CP.PCM.PN ---
Subjective - Date & Time of Evaluation Date of Evaluation: 05/24/18 Time of Evaluation: 10:10 - Subjective Subjective: Still on oxygen but feeling better, no cough, no fevers, not in distress. Objective - Vital Signs/Intake and Output Vital Signs (last 24 hours): Temp Pulse Resp BP Pulse Ox 98.4 F 99 H 20 110/75 92 L 05/24/18 11:45 05/24/18 14:00 05/24/18 11:45 05/24/18 11:45 05/24/18 08:00 Intake and Output: 05/24/18 05/24/18 06:59 18:59 Intake Total 880 100 Output Total 500 Balance 380 100 - Medications Medications: Current Medications Albuterol/Ipratropium (Duoneb 3 Mg/0.5 Mg (3 Ml) Ud) 3 ml IH Q2H PRN PRN Reason: Shortness of Breath Arformoterol Tartrate (Brovana) 15 mcg IH [id number] [facility] Last Admin: 05/24/18 07:18 Dose: 15 mcg Aspirin (Aspirin Chewable) 81 mg PO DAILY [facility] Last Admin: 05/23/18 10:20 Dose: 81 mg Atorvastatin Calcium (Lipitor) 20 mg PO HS [facility] Last Admin: 05/23/18 22:10 Dose: 20 mg Budesonide (Pulmicort Respules) 0.5 mg IH [id number] [facility] Last Admin: 05/24/18 07:18 Dose: 0.5 mg Carvedilol (Coreg) 12.5 mg PO BID [facility] Last Admin: 05/24/18 09:29 Dose: 12.5 mg Clonidine HCl (Catapres) 0.2 mg PO BID [facility] Last Admin: 05/24/18 09:29 Dose: 0.2 mg Dextrose (Dextrose 50% Inj) 0 ml IV STAT PRN; Protocol PRN Reason: Hypoglycemia Protocol Docusate Sodium (Colace) 100 mg PO TID PRN PRN Reason: Constipation Ferrous Sulfate (Feosol Liq) 300 mg PO TID [facility] Last Admin: 05/24/18 13:15 Dose: 300 mg Glipizide (Glucotrol) 5 mg PO ACB [facility] Last Admin: 05/24/18 09:30 Dose: 5 mg Guaifenesin (Robitussin) 100 mg PO Q4H PRN PRN Reason: Cough Heparin Sodium (Porcine) (Heparin) 5,000 units SC Q12 [facility] PRN Reason: Protocol Last Admin: 05/24/18 09:30 Dose: Not Given Milrinone Lactate/Dextrose (Primacor 20mg/100ml D5w) 100 mls @ 17.146 mls/hr IV .Q5H50M PRN; Protocol; 0.375 MCG/KG/MIN PRN Reason: TITRATE PER MD ORDER Last Admin: 05/24/18 10:40 Dose: 0.375 mcg/kg/min, 17.146 mls/hr Insulin Human Regular (Humulin R) 0 units SC ACHS [facility] PRN Reason: Protocol Last Admin: 05/24/18 11:31 Dose: 1 unit Ipratropium [place] (Atrovent) 0.5 mg IH [id number] [facility] Last Admin: 05/24/18 13:24 Dose: 0.5 mg Lisinopril (Zestril) 2.5 mg PO DAILY [facility] Last Admin: 05/24/18 09:32 Dose: 2.5 mg Methylprednisolone (Solu-Medrol) 30 mg IVP DAILY [facility] Last Admin: 05/24/18 09:31 Dose: 30 mg Ondansetron HCl (Zofran Tab) 4 mg PO Q8H PRN PRN Reason: Nausea/Vomiting Pantoprazole Sodium (Protonix Ec Tab) 40 mg PO DAILY [facility] Last Admin: 05/24/18 09:31 Dose: 40 mg Polyethylene Glycol (Miralax) 17 gm PO DAILY PRN PRN Reason: Constipation Spironolactone (Aldactone) 25 mg PO DAILY [facility] Last Admin: 05/24/18 09:28 Dose: 25 mg - Labs Labs: 05/24/18 10:15 05/24/18 10:15 PT 21.4 SECONDS (9.4-12.5) H 05/09/18 17:00 INR 1.85 05/09/18 17:00 APTT 30.9 Seconds (25.1-36.5) 05/09/18 17:00 - Constitutional Appears: Non-toxic, Chronically Ill - Head Exam Head Exam: NORMAL INSPECTION - Neck Exam Neck Exam: absent: Meningismus - Respiratory Exam Respiratory Exam: Decreased Breath Sounds - Cardiovascular Exam Cardiovascular Exam: +S1, +S2 - GI/Abdominal Exam GI & Abdominal Exam: Soft. absent: Tenderness Assessment and Plan - Assessment and Plan (Free Text) Plan: Assessment S/P sepsis due to right lower lobe HCAP, S/P treatment with antibiotics morbid obesity with BMI 42 COPD Plan COmpleted course of Merrem and Doxycycline - continue to monitor off antibiotics since he is at risk for nosocomial infections
--- NOTE | 2018-05-24 16:27 | PN ---
Copied To: Florina Gilmore MD Attending MD: Florina Gilmore MD DATE: 05/24/2018 FOLLOWUP NOTE: SUBJECTIVE: Shortly, the patient is a 52-year-old male with not known past medical history. The patient has history of obesity. The patient was admitted on the medical site status post fall. The patient was diagnosed with sepsis due to right lower lobe pneumonia, status post treatment with antibiotics. The patient also has COPD. The patient completed a course of Merrem and doxycycline. Right now is off antibiotics. The patient has tendency of refusing treatment and lab work and medical team requested for followup consultation. The patient was seen and examined today. The patient presented much better to compare with the time of admission. The patient said that he was refusing lab work yesterday because medical team did not introduce themselves and he feels tired of being poked. The patient reported that he is willing to have all the tests, but as long as everything is explained to him. This machine sign writer doubt that the medical team is just poking the patient. The patient has strong personality traits, may be borderline personality traits. The patient reported that he does not feel depressed. The patient denied that he has any thoughts of harming himself or others. The patient is quite aware of the circumstances of his admission to the medical site. Physical Therapy recommended subacute rehab and the patient is willing to go there in order to gain his strength back. The patient wants to go back to work and put his life back on track and feel better in regards of the medical issues. Vital signs seems to be stable. Temperature 98.4, pulse is 99, blood pressure 110/95, respirations 20. Medications are reviewed. DuoNeb, Brovana, aspirin, Lipitor, Pulmicort, Coreg, Catapres, dextrose, Colace, Feosol, Robitussin, heparin, Humulin, Zestril, Solu-Medrol, Zofran, Protonix and MiraLax as well as Aldactone. Labs reviewed. WBC cells going down, 10.2 today; hemoglobin is 7.3 and hematocrit 26. Chemistry reviewed, the patient has chloride 90, which is low and carbon dioxide 47, which is high. Calcium and phosphorus are low. Urinalysis: Blood moderate, which was done on 05/17/2018, positive occult blood. Toxicology is negative for any substances. Serology reactive, HIV antibody as well as HIV antigen. MENTAL STATUS EXAMINATION: The patient presented to be alert, oriented, knows the circumstances of his admission. The patient presented well to this machine sign writer. The patient obviously has episodes of irritability and loud speech, but the patient presented no psychotic nor depressed and not anxious. Mood described as, I feel tired of being poked. Affect was constricted. Thought process concrete. Thought content, the patient denied visual, auditory or tactile hallucinations. Denied paranoid ideation. The patient denied thoughts of harming himself or others. Denied intents or plan. Insight and judgment seems to be improving. Impulses are well controlled. IMPRESSION: Most likely, the patient has mood disorder due to general medical condition, which seems to be improving. PLAN: The patient is willing to participate in treatment plan. The patient is willing to go to subacute rehab. The patient expressed his concerns that all tests needs to be explained with the patient. Basically, this is what was going on, but maybe medical team needs to spend more time in order to educate the patient. The patient denied any thoughts of harming himself or others. The patient is not in any imminent danger to self or others. This machine sign writer will sign off again. Should you have any questions, give me a call back. Thank you very much for letting me participate in the care of your patient. Florina Gilmore MD
[2018-05-25 00:58] VITALS: O2SAT 96
[2018-05-25] MEDS: Ipratropium 0.02% Inhal Soln (0.5 mg/2.5 ml) UD IH SCH ×4 (01:06→19:05)
[2018-05-25 05:27] VITALS: TEMP 98.4
[2018-05-25] MEDS: Budesonide 0.5 mg/2 ml Inhal Susp UD IH SCH ×2 (07:27→19:05)
[2018-05-25] MEDS: Arformoterol 15 mcg/2 ml Inh Sol IH SCH ×2 (07:27→19:05)
[2018-05-25 08:11] LABS: BASO # 0.01 K/mm3 (0.0-2.0); BASO % 0.1 % (0.0-3.0); EOS # 0.1 (0.0-0.7); EOS % 0.5 % (1.5-5.0); GRAN # 5.93 (1.4-6.5); GRAN % 61.8 % (50.0-68.0); HEMOGLOBIN 7.9 g/dL (14.0-18.0); LYMPH # 2.1 (1.2-3.4); LYMPH % 21.5 % (22.0-35.0); MEAN CELL VOLUME 78.6 fl (80.0-105.0); MEAN CORPUSCULAR HEMOGLOBIN 21.7 pg (25.0-35.0); MEAN CORPUSCULAR HGB CONC 27.6 g/dl (31.0-37.0); MONO # 1.6 (0.1-0.6); MONO % 16.1 % (1.0-6.0); PLATELET COUNT 166 10^3/uL (120.0-450.0); RBC 3.64 10^6/uL (3.5-6.1); RED CELL DISTRIBUTION WIDTH 26.3 % (11.5-14.5); WHITE BLOOD COUNT 9.6 10^3/ul (4.5-11.0)
[2018-05-25] MEDS: Insulin Regular 1 UNITS/0.01 ML ML SC SCH ×3 (08:20→17:39)
[2018-05-25 08:46] LABS: ALBUMIN 3.1 g/dL (3.0-4.8); ALT/SGPT 29 U/L (7-56); AST/SGOT 28 U/L (17-59); BLOOD UREA NITROGEN 29 mg/dL (7-21); CALCIUM 8.3 mg/dL (8.4-10.5); GFR NON-AFRICAN AMERICAN > 60
[2018-05-25] MEDS: Ferrous Sulfate 300 mg/5 mL Liq UD PO SCH ×3 (10:11→17:33)
[2018-05-25] MEDS: Pantoprazole 40 mg EC Tab PO SCH (10:13)
[2018-05-25] MEDS: MethylPREDNISolone 40 mg Vial IVP SCH (10:13)
--- NOTE | 2018-05-25 11:08 | CP.PCM.PN ---
Subjective - Date & Time of Evaluation Date of Evaluation: 05/25/18 Time of Evaluation: 09:45 - Subjective Subjective: Comfortable in bed, no fevers, breathing better, no nausea, BM's are regular and solid. Objective - Vital Signs/Intake and Output Vital Signs (last 24 hours): Temp Pulse Resp BP Pulse Ox 98.4 F 89 18 109/60 96 05/25/18 05:25 05/25/18 05:26 05/25/18 05:25 05/25/18 05:25 05/25/18 05:25 Intake and Output: 05/24/18 05/25/18 18:59 06:59 Intake Total 1985 1240 Output Total 2099 1150 Balance -115 90 - Medications Medications: Current Medications Acetaminophen (Tylenol 325mg Tab) 650 mg PO Q6H PRN PRN Reason: Pain, moderate (4-7) Last Admin: 05/24/18 18:06 Dose: 650 mg Albuterol/Ipratropium (Duoneb 3 Mg/0.5 Mg (3 Ml) Ud) 3 ml IH Q2H PRN PRN Reason: Shortness of Breath Arformoterol Tartrate (Brovana) 15 mcg IH [id number] [facility] Last Admin: 05/24/18 19:59 Dose: 15 mcg Aspirin (Aspirin Chewable) 81 mg PO DAILY [facility] Last Admin: 05/23/18 10:20 Dose: 81 mg Atorvastatin Calcium (Lipitor) 20 mg PO HS [facility] Last Admin: 05/25/18 01:22 Dose: Not Given Budesonide (Pulmicort Respules) 0.5 mg IH [id number] [facility] Last Admin: 05/24/18 19:59 Dose: 0.5 mg Carvedilol (Coreg) 12.5 mg PO BID [facility] Last Admin: 05/24/18 17:16 Dose: 12.5 mg Clonidine HCl (Catapres) 0.2 mg PO BID [facility] Last Admin: 05/24/18 17:16 Dose: 0.2 mg Docusate Sodium (Colace) 100 mg PO TID PRN PRN Reason: Constipation Ferrous Sulfate (Feosol Liq) 300 mg PO TID [facility] Last Admin: 05/24/18 17:13 Dose: 300 mg Glipizide (Glucotrol) 5 mg PO ACB [facility] Last Admin: 05/24/18 09:30 Dose: 5 mg Guaifenesin (Robitussin) 100 mg PO Q4H PRN PRN Reason: Cough Heparin Sodium (Porcine) (Heparin) 5,000 units SC Q12 TRAVIS PRN Reason: Protocol Last Admin: 05/24/18 09:30 Dose: Not Given Insulin Human Regular (Humulin R) 0 units SC ACHS TRAVIS PRN Reason: Protocol Last Admin: 05/24/18 22:18 Dose: Not Given Ipratropium Petroleum (Atrovent) 0.5 mg IH [id number] [facility] Last Admin: 05/25/18 01:06 Dose: 0.5 mg Lisinopril (Zestril) 2.5 mg PO DAILY [facility] Last Admin: 05/24/18 09:32 Dose: 2.5 mg Methylprednisolone (Solu-Medrol) 30 mg IVP DAILY [facility] Last Admin: 05/24/18 09:31 Dose: 30 mg Ondansetron HCl (Zofran Tab) 4 mg PO Q8H PRN PRN Reason: Nausea/Vomiting Pantoprazole Sodium (Protonix Ec Tab) 40 mg PO DAILY [facility] Last Admin: 05/24/18 09:31 Dose: 40 mg Polyethylene Glycol (Miralax) 17 gm PO DAILY PRN PRN Reason: Constipation Spironolactone (Aldactone) 25 mg PO DAILY [facility] Last Admin: 05/24/18 09:28 Dose: 25 mg - Labs Labs: 05/24/18 10:15 05/24/18 10:15 PT 21.4 SECONDS (9.4-12.5) H 05/09/18 17:00 INR 1.85 05/09/18 17:00 APTT 30.9 Seconds (25.1-36.5) 05/09/18 17:00 - Constitutional Appears: No Acute Distress, Chronically Ill - Head Exam Head Exam: NORMAL INSPECTION - Respiratory Exam Respiratory Exam: Decreased Breath Sounds - Cardiovascular Exam Cardiovascular Exam: +S1, +S2 - GI/Abdominal Exam GI & Abdominal Exam: Soft. absent: Tenderness Assessment and Plan - Assessment and Plan (Free Text) Plan: Assessment S/P sepsis due to right lower lobe HCAP, S/P treatment with antibiotics morbid obesity with BMI 42 COPD Plan Completed course of Merrem and Doxycycline - continue to monitor off antibiotics since he is at risk for hospital-acquired infections
[2018-05-25 11:51] VITALS: RESP 20
--- NOTE | 2018-05-25 13:18 | CON ---
Copied To: Stiven Booker DO Attending MD: Stiven Booker DO DATE: 05/25/2018 HISTORY OF PRESENT ILLNESS: I saw Mr. Khan this morning. He is a 52-year-old black male admitted with extreme shortness of breath, mild change in mental status. Note that the patient has history of COPD, diabetes, hypertension, CHF and coronary artery disease with stents. I reviewed pretty much all the notes of the respective consultants as well as most of the studies. At the bedside this morning, the patient indicated that his breathing is still impaired. He denied any hematemesis, rectal bleeding or diarrhea. There is no abdominal pain. The patient kept the fact that he needs physical therapy before he reached the hospital. PHYSICAL EXAMINATION: VITAL SIGNS: I reviewed this patient's vital signs. HEENT: Noncontributory. LUNGS: Decreased breath sounds, basilar. HEART: Regular rhythm. ABDOMEN: Protuberant. Bowel sounds are present. There is no tenderness elicited in any quadrant. LABORATORY DATA: I reviewed this patient's laboratory data. Note that the patient has HIV antibody positive. Note that review of his CBC at the current admission indicates it has been relatively stable since 05/11/2018. There has been no gross evidence of rectal bleeding grossly or hematemesis. Nurses reported guaiac positive bowel movements. This patient has had extensive studies including an echo which revealed tricuspid regurgitation, pericardial effusion, pulmonary hypertension, cardiomyopathy with decreased systolic function. OVERALL ASSESSMENT: This is a 52-year-old black male, human immunodeficiency virus positive with a history of obstructive sleep apnea with chronic obstructive pulmonary disease, diabetes, hypertension, congestive heart failure, coronary artery disease, presented with a congestive heart failure exacerbation. He is currently being seen by multiple consultants and his human immunodeficiency virus status is evaluated well by Infectious Disease. Note that the consult was called for gastrointestinal bleed. Find no evidence of this laboratory alvarado or clinically. The patient has too many other comorbidities that too warrant endoscopic evaluation at this time point. I will suggest continuing on the current regimen, treating the patient symptomatically and at this time point, not much for me to offer. If the patient warrants endoscopic evaluation at a later day, this can be done as an outpatient. Stiven Booker DO [facility] # [id number]
--- NOTE | 2018-05-25 16:34 | CP.PCM.DIS ---
<Rc Wong - Last Filed: 05/25/18 16:29> Provider - Provider Date of Admission: 05/09/18 19:49 Attending physician: Jamel Murry MD Primary care physician: Yoni Arenas MD Consults: GI, cardiology, uroogy, ID, Psych, Pulmonary Time Spent in preparation of Discharge (in minutes): 35 Hospital Course - Lab Results Lab Results: Micro Results 05/23/18 13:05 Blood Blood Culture - Preliminary NO GROWTH AFTER 48 HOURS 05/23/18 13:05 Blood Blood Culture - Preliminary NO GROWTH AFTER 48 HOURS 05/16/18 22:40 Blood Blood Culture - Final NO GROWTH AFTER 5 DAYS 05/16/18 22:40 Blood Gram Stain - Final TEST NOT PERFORMED 05/16/18 22:40 Blood Blood Culture - Final NO GROWTH AFTER 5 DAYS 05/16/18 22:40 Blood Gram Stain - Final TEST NOT PERFORMED 05/17/18 09:15 Sputum Gram Stain - Final 05/17/18 09:15 Sputum Sputum Culture - Final NORMAL ORAL LUCIANO 05/09/18 21:00 Naris MRSA Culture (Admit) - Final MRSA NOT DETECTED Most Recent Lab Values WBC 9.6 10^3/ul (4.5-11.0) 05/25/18 07:30 RBC 3.64 10^6/uL (3.5-6.1) 05/25/18 07:30 Hgb 7.9 g/dL (14.0-18.0) L 05/25/18 07:30 Hct 28.6 % (42.0-52.0) L 05/25/18 07:30 MCV 78.6 fl (80.0-105.0) L 05/25/18 07:30 MCH 21.7 pg (25.0-35.0) L 05/25/18 07:30 MCHC 27.6 g/dl (31.0-37.0) L 05/25/18 07:30 RDW 26.3 % (11.5-14.5) H 05/25/18 07:30 Plt Count 166 10^3/uL (120.0-450.0) 05/25/18 07:30 MPV 9.4 fl (7.0-11.0) 05/24/18 10:15 Gran % 61.8 % (50.0-68.0) 05/25/18 07:30 Lymph % (Auto) 21.5 % (22.0-35.0) L 05/25/18 07:30 [place] % (Auto) 16.1 % (1.0-6.0) H 05/25/18 07:30 Eos % (Auto) 0.5 % (1.5-5.0) L 05/25/18 07:30 Baso % (Auto) 0.1 % (0.0-3.0) 05/25/18 07:30 Gran # 5.93 (1.4-6.5) 05/25/18 07:30 Lymph # (Auto) 2.1 (1.2-3.4) 05/25/18 07:30 [place] # (Auto) 1.6 (0.1-0.6) H 05/25/18 07:30 Eos # (Auto) 0.1 (0.0-0.7) 05/25/18 07:30 Baso # (Auto) 0.01 K/mm3 (0.0-2.0) 05/25/18 07:30 Differential Comment See pathology report 05/10/18 06:00 Retic Count 2.30 % (0.5-1.5) H 05/09/18 17:00 PT 21.4 SECONDS (9.4-12.5) H 05/09/18 17:00 INR 1.85 05/09/18 17:00 APTT 30.9 Seconds (25.1-36.5) 05/09/18 17:00 pCO2 67 mm/Hg (35-45) H 05/23/18 08:15 pO2 54.0 mm/Hg (80-100) L 05/23/18 08:15 HCO3 46.6 mmol/L (21-28) H* 05/23/18 08:15 ABG pH 7.45 (7.35-7.45) 05/23/18 08:15 ABG Total CO2 48.7 mmol.L (22-28) H 05/23/18 08:15 ABG O2 Saturation 91.9 % (95-98) L 05/23/18 08:15 ABG O2 Content 8.6 ML/dl (15-23) L 05/23/18 08:15 ABG Base Excess 20.5 mmol/L (-2.0-3.0) H 05/23/18 08:15 ABG Hemoglobin 6.8 g/dL (11.7-17.4) L 05/23/18 08:15 ABG Carboxyhemoglobin 2.9 % (0.5-1.5) H 05/23/18 08:15 POC ABG HHb (Measured) 7.8 % (0-5) H 05/23/18 08:15 ABG Methemoglobin 0.4 % (0.0-3.0) 05/23/18 08:15 ABG O2 Capacity 9.4 mL/dl (16-24) L 05/23/18 08:15 ABG Potassium 4.3 mmol/L (3.6-5.2) 05/16/18 23:27 VBG pH 7.27 (7.32-7.43) L 05/09/18 19:37 VBG pCO2 57.0 (40-60) 05/09/18 19:37 VBG HCO3 26.2 mmol/l (21-28) 05/09/18 19:37 VBG Total CO2 27.9 mmol.L (22-28) 05/09/18 19:37 VBG O2 Sat (Calc) 99.3 % (40-65) H 05/09/18 19:37 VBG Base Excess -1.7 mmol/L (0.0-2.0) L 05/09/18 19:37 VBG Potassium 4.8 mmol/L (3.6-5.2) 05/09/18 19:37 Hgb O2 Saturation 88.9 % (95.0-98.0) L 05/23/18 08:15 Sodium 142.0 mmol/L (132-148) 05/16/18 23:27 Chloride 105.0 mmol/L (98-107) 05/16/18 23:27 Glucose 218 mg/dl (75-110) H 05/16/18 23:27 Lactate 1.2 mmol/L (0.7-2.1) 05/16/18 23:27 FiO2 32.0 % 05/23/18 08:15 Inspiratory BiPAP 12 05/16/18 23:27 Sodium 141 mmol/L (132-148) 05/25/18 07:30 Potassium 3.6 mmol/L (3.6-5.0) 05/25/18 07:30 Chloride 92 mmol/L (98-107) L 05/25/18 07:30 Carbon Dioxide 44 mmol/L (21-33) H 05/25/18 07:30 Anion Gap 9 (10-20) L 05/25/18 07:30 BUN 29 mg/dL (7-21) H 05/25/18 07:30 Creatinine 0.8 mg/dl (0.8-1.5) 05/25/18 07:30 Est GFR ( Amer) > 60 05/25/18 07:30 Est GFR (Non-Af Amer) > 60 05/25/18 07:30 POC Glucose (mg/dL) 130 mg/dL (65-110) H 05/25/18 11:23 Random Glucose 111 mg/dL (70-110) H 05/25/18 07:30 Hemoglobin A1c 7.2 % (4.2-6.5) H 05/10/18 06:00 Calcium 8.3 mg/dL (8.4-10.5) L 05/25/18 07:30 Phosphorus 2.4 mg/dL (2.5-4.5) L 05/24/18 10:15 Magnesium 1.7 mg/dL (1.7-2.2) 05/24/18 10:15 Iron 10 ug/dL (45-180) L 05/09/18 19:39 TIBC 171 ug/dL (261-462) L 05/09/18 19:39 % Saturation 6 % (20-55) L 05/09/18 19:39 Ferritin 16.8 ng/mL 05/09/18 19:39 Total Bilirubin 0.6 mg/dL (0.2-1.3) 05/25/18 07:30 AST 28 U/L (17-59) 05/25/18 07:30 ALT 29 U/L (7-56) 05/25/18 07:30 Alkaline Phosphatase 254 U/L (38-126) H 05/25/18 07:30 Lactate Dehydrogenase 558 U/L (333-699) 05/09/18 19:39 Total Creatine Kinase 89 U/L (35-230) 05/09/18 19:39 Troponin I 0.03 ng/mL D 05/11/18 05:30 NT-Pro-B Natriuret Pep 2220 pg/mL (0-450) H 05/09/18 19:39 Total Protein 6.3 g/dL (5.8-8.3) 05/25/18 07:30 Albumin 3.1 g/dL (3.0-4.8) 05/25/18 07:30 Globulin 3.1 gm/dL 05/25/18 07:30 Albumin/Globulin Ratio 1.0 (1.1-1.8) L 05/25/18 07:30 Triglycerides 66 mg/dL (35-160) 05/10/18 06:00 Cholesterol 86 mg/dL (130-200) L 05/10/18 06:00 LDL Cholesterol Direct 44 mg/dL (0-129) 05/10/18 06:00 HDL Cholesterol 24 mg/dL (29-60) L 05/10/18 06:00 Vitamin B12 > 1000 pg/mL (239-931) H 05/09/18 19:39 Folate 5.9 ng/mL 05/09/18 19:39 Procalcitonin 0.07 NG/ML (0.19-0.49) L 05/23/18 09:20 Arterial Blood Potassium 4.3 mmol/L (3.6-5.2) 05/16/18 23:27 Venous Blood Potassium 4.8 mmol/L (3.6-5.2) 05/09/18 19:37 Urine Color Yellow (YELLOW) 05/17/18 05:30 Urine Appearance Cloudy (CLEAR) 05/17/18 05:30 Urine pH 6.0 (4.7-8.0) 05/17/18 05:30 Ur Specific [place] 1.020 (1.005-1.035) 05/17/18 05:30 Urine Protein Negative mg/dL (<30 mg/dL) 05/17/18 05:30 Urine Glucose (UA) Negative mg/dL (NEGATIVE) 05/17/18 05:30 Urine Ketones Negative mg/dL (NEGATIVE) 05/17/18 05:30 Urine Blood Moderate (NEGATIVE) H 05/17/18 05:30 Urine Nitrate Negative (NEGATIVE) 05/17/18 05:30 Urine Bilirubin Negative (NEGATIVE) 05/17/18 05:30 Urine Urobilinogen 0.2 E.U./dL (<1 E.U./dL) 05/17/18 05:30 Ur Leukocyte Esterase Negative Rachel/uL (NEGATIVE) 05/17/18 05:30 Urine RBC 15 - 20 /hpf (0-2) 05/17/18 05:30 Urine WBC 1 - 3 /hpf (0-6) 05/17/18 05:30 Ur Epithelial Cells 0 - 2 /hpf (0-5) 05/17/18 05:30 Amorphous Sediment Few 05/17/18 05:30 Urine Bacteria Many (NEG) 05/17/18 05:30 Urine Other Uyeast 05/17/18 05:30 Stool Occult Blood Positive (NEGATIVE) H 05/23/18 16:16 Urine Opiates Screen Negative (NEGATIVE) 05/20/18 17:00 Urine Methadone Screen Negative (NEGATIVE) 05/20/18 17:00 Ur Barbiturates Screen Negative (NEGATIVE) 05/20/18 17:00 Ur Phencyclidine Scrn Negative (NEGATIVE) 05/20/18 17:00 Ur Amphetamines Screen Negative (NEGATIVE) 05/20/18 17:00 U Benzodiazepines Scrn Negative (NEGATIVE) 05/20/18 17:00 U Oth Cocaine Metabols Negative (NEGATIVE) 05/20/18 17:00 U Cannabinoids Screen Negative (NEGATIVE) 05/20/18 17:00 Alcohol, Quantitative < 10 mg/dL (0-10) 05/09/18 19:39 Absolute Lymphs (Flow) 1432 Cells/mcL (850-3900) 05/10/18 06:00 % CD4 Cells 51 Percent (30-61) 05/10/18 06:00 Absolute CD4 Count 727 Cells/mcL (490-1740) 05/10/18 06:00 T-Help/Suppress Ratio 1.79 Ratio (0.86-5.00) 05/10/18 06:00 % CD8 Cells 28 Percent (12-42) 05/10/18 06:00 Absolute CD8 Count 407 Cells/mcL (180-1170) 05/10/18 06:00 HIV-1 Antibody Positive (Negative) H 05/10/18 06:00 HIV-1 RNA Qnt (RT-PCR) <1.30 not detected (Not Detected) 05/10/18 06:00 HIV-2 Antibody Negative (Negative) 05/10/18 06:00 HIV 1&2 Ag/Ab, 4th Gen Reactive (Nonreactive) H 05/10/18 06:00 Blood Type A POSITIVE 05/23/18 10:15 Blood Type Confirm A POSITIVE 05/23/18 11:00 Antibody Screen Negative 05/23/18 10:15 Crossmatch See Detail 05/23/18 10:15 BBK History Checked No verified bt 05/23/18 10:15 - Hospital Course Hospital Course: 52M presented to the ED on 05/09/18 with a one-day history of acute shortness of breath. Patient presented with a history of CHF and was noncompliant with at home medications. EKG revealed NSR with left axis deviation and left atrial enlargement; no acute ST segment elevations. Patient was started on Lasix, solumedrol, and duonebs for symptom relief. STAT blood and urine cultures were negative. Troponins were negative. Hospital Course: Patient was admitted to ICU and the hospitalist team. Initial chest x-ray revealed pulmonary congestion and significant cardiomegaly. Echo showed concentric LVH with moderately to severely impaired systolic function and grade I-abnormal relaxation pattern with 40% EF. Head CT was unremarkable. Patient was ordered a FOBT due to presence of microcytic anemia, which came back negative likely, indicates anemia of chronic disease. Cardiology was consulted. ABGs revealed acute respiratory acidosis. Patient was continued on Lasix and duonebs. Patient was started on BIPAP. Patients electrolytes were replaced as needed and DVT prophylaxis with Heparin was initiated. Repeat chest xrays continued to show cardiomegaly and pulmonary vascular congestion ID was consulted. Blood culture and MRSA screen were negative. HIV testing was negative. Patient was continued on home dose of eliquis. Repeat EKG revealed sinus arrhythmia with pulmonary disease and a prolonged QT interval. Pulmonology was consulted with recommendations to continue to continue solumedrol, duonebs, Lasix and was started on Symbicort. Urology was consulted due to presence of persistent scrotal swelling since presentation. Patient was recommended to continue urinary output via Lugo catheter. Scrotal US showed small B/L hydroceles. Scrotum elevation was initiated. Psychiatry was consulted. Patient was chronically non compliant with medications and physician advice during hospital course as BIPAP usage was minimal, medication ingestion was refused, and peripheral lines/phlebotomy was rejected. Speech and language pathologist evaluated patient due to complaints of dysphagia. Physical Therapy was also ordered for completion of bedside exercises and continued activity around the hospital. Patient complained of relapsing shortness of breath, but much lower in intensity than on presentation. Repeat chest xray taken on 05/16 revealed complete opacificaiton of the left with perihilar infiltration on the right. Patient was admitted to the ICU once again. Chest CT showed left lung collapse with volume loss and bilateral small to moderate pleural effusion. Vancomycin and meropenam were initiated as per recommendations from ID to treat possible hospital acquired PNA. Patient was started on milrinone and continued on aggressive diuresis. Repeat chest x-ray continued with left sided opacification, right perihilar infiltrate, and potentially worsened effusion due to continued noncompliance with medical advice and treatments. Ins and outs were monitored and chest PT with incentive spirometry, repeated postural changes, mucomyst, and hypertonic saline inhalation. Follow-up chest x-rays revealed improving left lung atelectasis. Patient was admitted back to [facility] on 05/19 upon adequate stabilization within ICU and maintenance of >90% O2 saturation on nasal cannula. Meropenam was discontinued after day 5 and steroids were tapered down. Repeat chest xray revealed improving right perihilar infiltrate. Vancomycin was discontinued after day 7. One unit of packed RBCs was given to patient to stabilize hemoglobin levels. Upon Discharge: Infectious disease signed off upon completion of antibiotics course for treatment of hospital acquired PNA. Cardiology signed off with recommendations to continue home medications as prescribed and follow-up outpatient cardiology for CHF control. Pulmonology signed off with recommendations to follow-up with outpatient PFTs and sleep study for evaluation of possible CHARAN. Psychiatry signed off upon evaluation of mental stability and agreement to clear for subacute rehabilitation. Patient is advised to follow up outpatient orthopedics for complaints of hip pain Patient is advised to follow up outpatient GI for further evaluation Discharge Exam - Head Exam Head Exam: NORMAL INSPECTION - Eye Exam Eye Exam: EOMI Pupil Exam: PERRL - Respiratory Exam Respiratory Exam: absent: Respiratory Distress Additional comments: minimal expiratory wheezing appreciated on exam - Cardiovascular Exam Cardiovascular Exam: REGULAR RHYTHM, +S1, +S2 - GI/Abdominal Exam GI & Abdominal Exam: Normal Bowel Sounds. absent: Firm, Guarding Additional comments: globular abdomen - Extremities Exam Extremities exam: normal inspection, pedal pulses present - Neurological Exam Neurological exam: Alert, Oriented x3 - Skin Skin Exam: Normal Color, Warm Discharge Plan - Discharge Medications Prescriptions: Ipratropium 0.02% [Atrovent] 0.5 mg IH [id number] #60 neb Aspirin [Ecotrin] 81 mg PO DAILY 30 Days tabec Docusate [Colace] 100 mg PO BID #60 cap Ferrous Sulfate [Feosol] 325 mg PO TID #90 tab Ipratropium 0.02% [Ipratropium Isabella 2.5 Ml] 0.02 % IH Q12 #60 neb Pantoprazole Sodium [Protonix] 40 mg PO DAILY #30 ect Polyethylene Glycol 3350 [Miralax] 17 g PO DAILY #30 ml predniSONE [Prednisone] See Taper PO DAILY #8 tab - Follow Up Plan Condition: CRITICAL Disposition: TRANSF TO SNF Additional Instructions: 1) Patient to follow up with PMD within 3-5 days of discharge. 2) Patient to obtain outpatient sleep study and Pulmonary Function Tests. 3) Patient to follow up with Dr. Booker, [employer], as an outpatient. 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 5) Patient to take all medications as prescribed/directed. Referrals: Yoni Arenas MD [Primary Care Provider] - Stiven Booker DO [Staff Provider] - <Jamel Murry - Last Filed: 05/26/18 07:44> Provider - Provider Date of Admission: 05/09/18 19:49 Attending physician: Jamel Murry MD Primary care physician: Yoni Arenas MD Hospital Course - Lab Results Lab Results: Micro Results 05/23/18 13:05 Blood Blood Culture - Preliminary NO GROWTH AFTER 48 HOURS 05/23/18 13:05 Blood Blood Culture - Preliminary NO GROWTH AFTER 48 HOURS 05/16/18 22:40 Blood Blood Culture - Final NO GROWTH AFTER 5 DAYS 05/16/18 22:40 Blood Gram Stain - Final TEST NOT PERFORMED 05/16/18 22:40 Blood Blood Culture - Final NO GROWTH AFTER 5 DAYS 05/16/18 22:40 Blood Gram Stain - Final TEST NOT PERFORMED 05/17/18 09:15 Sputum Gram Stain - Final 05/17/18 09:15 Sputum Sputum Culture - Final NORMAL ORAL LUCIANO 05/09/18 21:00 Naris MRSA Culture (Admit) - Final MRSA NOT DETECTED Most Recent Lab Values WBC 9.6 10^3/ul (4.5-11.0) 05/25/18 07:30 RBC 3.64 10^6/uL (3.5-6.1) 05/25/18 07:30 Hgb 7.9 g/dL (14.0-18.0) L 05/25/18 07:30 Hct 28.6 % (42.0-52.0) L 05/25/18 07:30 MCV 78.6 fl (80.0-105.0) L 05/25/18 07:30 MCH 21.7 pg (25.0-35.0) L 05/25/18 07:30 MCHC 27.6 g/dl (31.0-37.0) L 05/25/18 07:30 RDW 26.3 % (11.5-14.5) H 05/25/18 07:30 Plt Count 166 10^3/uL (120.0-450.0) 05/25/18 07:30 MPV 9.4 fl (7.0-11.0) 05/24/18 10:15 Gran % 61.8 % (50.0-68.0) 05/25/18 07:30 Lymph % (Auto) 21.5 % (22.0-35.0) L 05/25/18 07:30 [place] % (Auto) 16.1 % (1.0-6.0) H 05/25/18 07:30 Eos % (Auto) 0.5 % (1.5-5.0) L 05/25/18 07:30 Baso % (Auto) 0.1 % (0.0-3.0) 05/25/18 07:30 Gran # 5.93 (1.4-6.5) 05/25/18 07:30 Lymph # (Auto) 2.1 (1.2-3.4) 05/25/18 07:30 [place] # (Auto) 1.6 (0.1-0.6) H 05/25/18 07:30 Eos # (Auto) 0.1 (0.0-0.7) 05/25/18 07:30 Baso # (Auto) 0.01 K/mm3 (0.0-2.0) 05/25/18 07:30 Differential Comment See pathology report 05/10/18 06:00 Retic Count 2.30 % (0.5-1.5) H 05/09/18 17:00 PT 21.4 SECONDS (9.4-12.5) H 05/09/18 17:00 INR 1.85 05/09/18 17:00 APTT 30.9 Seconds (25.1-36.5) 05/09/18 17:00 pCO2 67 mm/Hg (35-45) H 05/23/18 08:15 pO2 54.0 mm/Hg (80-100) L 05/23/18 08:15 HCO3 46.6 mmol/L (21-28) H* 05/23/18 08:15 ABG pH 7.45 (7.35-7.45) 05/23/18 08:15 ABG Total CO2 48.7 mmol.L (22-28) H 05/23/18 08:15 ABG O2 Saturation 91.9 % (95-98) L 05/23/18 08:15 ABG O2 Content 8.6 ML/dl (15-23) L 05/23/18 08:15 ABG Base Excess 20.5 mmol/L (-2.0-3.0) H 05/23/18 08:15 ABG Hemoglobin 6.8 g/dL (11.7-17.4) L 05/23/18 08:15 ABG Carboxyhemoglobin 2.9 % (0.5-1.5) H 05/23/18 08:15 POC ABG HHb (Measured) 7.8 % (0-5) H 05/23/18 08:15 ABG Methemoglobin 0.4 % (0.0-3.0) 05/23/18 08:15 ABG O2 Capacity 9.4 mL/dl (16-24) L 05/23/18 08:15 ABG Potassium 4.3 mmol/L (3.6-5.2) 05/16/18 23:27 VBG pH 7.27 (7.32-7.43) L 05/09/18 19:37 VBG pCO2 57.0 (40-60) 05/09/18 19:37 VBG HCO3 26.2 mmol/l (21-28) 05/09/18 19:37 VBG Total CO2 27.9 mmol.L (22-28) 05/09/18 19:37 VBG O2 Sat (Calc) 99.3 % (40-65) H 05/09/18 19:37 VBG Base Excess -1.7 mmol/L (0.0-2.0) L 05/09/18 19:37 VBG Potassium 4.8 mmol/L (3.6-5.2) 05/09/18 19:37 Hgb O2 Saturation 88.9 % (95.0-98.0) L 05/23/18 08:15 Sodium 142.0 mmol/L (132-148) 05/16/18 23:27 Chloride 105.0 mmol/L (98-107) 05/16/18 23:27 Glucose 218 mg/dl (75-110) H 05/16/18 23:27 Lactate 1.2 mmol/L (0.7-2.1) 05/16/18 23:27 FiO2 32.0 % 05/23/18 08:15 Inspiratory BiPAP 12 05/16/18 23:27 Sodium 141 mmol/L (132-148) 05/25/18 07:30 Potassium 3.6 mmol/L (3.6-5.0) 05/25/18 07:30 Chloride 92 mmol/L (98-107) L 05/25/18 07:30 Carbon Dioxide 44 mmol/L (21-33) H 05/25/18 07:30 Anion Gap 9 (10-20) L 05/25/18 07:30 BUN 29 mg/dL (7-21) H 05/25/18 07:30 Creatinine 0.8 mg/dl (0.8-1.5) 05/25/18 07:30 Est GFR ( Amer) > 60 05/25/18 07:30 Est GFR (Non-Af Amer) > 60 05/25/18 07:30 POC Glucose (mg/dL) 253 mg/dL (65-110) H 05/25/18 16:02 Random Glucose 111 mg/dL (70-110) H 05/25/18 07:30 Hemoglobin A1c 7.2 % (4.2-6.5) H 05/10/18 06:00 Calcium 8.3 mg/dL (8.4-10.5) L 05/25/18 07:30 Phosphorus 2.4 mg/dL (2.5-4.5) L 05/24/18 10:15 Magnesium 1.7 mg/dL (1.7-2.2) 05/24/18 10:15 Iron 10 ug/dL (45-180) L 05/09/18 19:39 TIBC 171 ug/dL (261-462) L 05/09/18 19:39 % Saturation 6 % (20-55) L 05/09/18 19:39 Ferritin 16.8 ng/mL 05/09/18 19:39 Total Bilirubin 0.6 mg/dL (0.2-1.3) 05/25/18 07:30 AST 28 U/L (17-59) 05/25/18 07:30 ALT 29 U/L (7-56) 05/25/18 07:30 Alkaline Phosphatase 254 U/L (38-126) H 05/25/18 07:30 Lactate Dehydrogenase 558 U/L (333-699) 05/09/18 19:39 Total Creatine Kinase 89 U/L (35-230) 05/09/18 19:39 Troponin I 0.03 ng/mL D 05/11/18 05:30 NT-Pro-B Natriuret Pep 2220 pg/mL (0-450) H 05/09/18 19:39 Total Protein 6.3 g/dL (5.8-8.3) 05/25/18 07:30 Albumin 3.1 g/dL (3.0-4.8) 05/25/18 07:30 Globulin 3.1 gm/dL 05/25/18 07:30 Albumin/Globulin Ratio 1.0 (1.1-1.8) L 05/25/18 07:30 Triglycerides 66 mg/dL (35-160) 05/10/18 06:00 Cholesterol 86 mg/dL (130-200) L 05/10/18 06:00 LDL Cholesterol Direct 44 mg/dL (0-129) 05/10/18 06:00 HDL Cholesterol 24 mg/dL (29-60) L 05/10/18 06:00 Vitamin B12 > 1000 pg/mL (239-931) H 05/09/18 19:39 Folate 5.9 ng/mL 05/09/18 19:39 Procalcitonin 0.07 NG/ML (0.19-0.49) L 05/23/18 09:20 Arterial Blood Potassium 4.3 mmol/L (3.6-5.2) 05/16/18 23:27 Venous Blood Potassium 4.8 mmol/L (3.6-5.2) 05/09/18 19:37 Urine Color Yellow (YELLOW) 05/17/18 05:30 Urine Appearance Cloudy (CLEAR) 05/17/18 05:30 Urine pH 6.0 (4.7-8.0) 05/17/18 05:30 Ur Specific [place] 1.020 (1.005-1.035) 05/17/18 05:30 Urine Protein Negative mg/dL (<30 mg/dL) 05/17/18 05:30 Urine Glucose (UA) Negative mg/dL (NEGATIVE) 05/17/18 05:30 Urine Ketones Negative mg/dL (NEGATIVE) 05/17/18 05:30 Urine Blood Moderate (NEGATIVE) H 05/17/18 05:30 Urine Nitrate Negative (NEGATIVE) 05/17/18 05:30 Urine Bilirubin Negative (NEGATIVE) 05/17/18 05:30 Urine Urobilinogen 0.2 E.U./dL (<1 E.U./dL) 05/17/18 05:30 Ur Leukocyte Esterase Negative Rachel/uL (NEGATIVE) 05/17/18 05:30 Urine RBC 15 - 20 /hpf (0-2) 05/17/18 05:30 Urine WBC 1 - 3 /hpf (0-6) 05/17/18 05:30 Ur Epithelial Cells 0 - 2 /hpf (0-5) 05/17/18 05:30 Amorphous Sediment Few 05/17/18 05:30 Urine Bacteria Many (NEG) 05/17/18 05:30 Urine Other Uyeast 05/17/18 05:30 Stool Occult Blood Positive (NEGATIVE) H 05/23/18 16:16 Urine Opiates Screen Negative (NEGATIVE) 05/20/18 17:00 Urine Methadone Screen Negative (NEGATIVE) 05/20/18 17:00 Ur Barbiturates Screen Negative (NEGATIVE) 05/20/18 17:00 Ur Phencyclidine Scrn Negative (NEGATIVE) 05/20/18 17:00 Ur Amphetamines Screen Negative (NEGATIVE) 05/20/18 17:00 U Benzodiazepines Scrn Negative (NEGATIVE) 05/20/18 17:00 U Oth Cocaine Metabols Negative (NEGATIVE) 05/20/18 17:00 U Cannabinoids Screen Negative (NEGATIVE) 05/20/18 17:00 Alcohol, Quantitative < 10 mg/dL (0-10) 05/09/18 19:39 Absolute Lymphs (Flow) 1432 Cells/mcL (850-3900) 05/10/18 06:00 % CD4 Cells 51 Percent (30-61) 05/10/18 06:00 Absolute CD4 Count 727 Cells/mcL (490-1740) 05/10/18 06:00 T-Help/Suppress Ratio 1.79 Ratio (0.86-5.00) 05/10/18 06:00 % CD8 Cells 28 Percent (12-42) 05/10/18 06:00 Absolute CD8 Count 407 Cells/mcL (180-1170) 05/10/18 06:00 HIV-1 Antibody Positive (Negative) H 05/10/18 06:00 HIV-1 RNA Qnt (RT-PCR) <1.30 not detected (Not Detected) 05/10/18 06:00 HIV-2 Antibody Negative (Negative) 05/10/18 06:00 HIV 1&2 Ag/Ab, 4th Gen Reactive (Nonreactive) H 05/10/18 06:00 Blood Type A POSITIVE 05/23/18 10:15 Blood Type Confirm A POSITIVE 05/23/18 11:00 Antibody Screen Negative 05/23/18 10:15 Crossmatch See Detail 05/23/18 10:15 BBK History Checked No verified bt 05/23/18 10:15 Attending/Attestation - Attestation I have personally seen and examined this patient.: Yes I have fully participated in the care of the patient.: Yes I have reviewed all pertinent clinical information, including history, physical exam and plan: Yes Notes (Text): 05/26/18 07:41 Attending note; Patient seen and examined with resident. Patient is alert and awake. Currently on oxygen nasal cannula. patient uses BiPAP at night. Patient is a 52 year old male with the past medical history significant for COPD, CAD, CHF, DM2, HTN, hperlipidemia, lumbar radiculopathy, and gout that presented to the emergency room with shortness of breath. 1. Acute respiratory failure due to CO2 narcosis. CO2 is decreasing. continue BiPAP at night. Continue oxygen nasal cannula during daytime. Repeat chest x-ray showed decreased effusion. Pulmonary congestion is resolving. 2. Bilateral interstitial infiltrate; treated with Lasix, Aldactone and milrinone drip. Continue Lasix. Patient is in negative balance . Continue to monitor ins and outs. Continue chest PT. 3. Healthcare acquired pneumonia. ID evaluation appreciated. S/P vancomycin and meropenem. Antibiotics completed. Pulmonary evaluation appreciated. Continue Solu-Medrol. Continue Brovana, Pulmicort, and nebulizer treatments. 4. HIV 1 antibody positive, HIV fourth generation positive, likely false positive. CD4 count 747. Viral load not detected. ID evaluation appreciated. 5. CAD s/p stent placement. Patient non-compliant with medications and follow up with doctors. Contine Coreg, ASA, Lisinopril and Lipitor. 6. Hypertension. Continue Clonidine, lasix, Lisinopril, and Coreg. 7. DM2. Continue insulin sliding scale and glipizide. Continue to monitor accuchecks. 8. Hyperlipidemia. Continue Lipitor 9. Chronic anemia. Hemoglobin is 6.8 today. got 1 unit of blood transfusion. repeat stool occult blood is positive. GI evaluation appreciated. Outpatient workup recommended. Currently no active bleeding. 10. Scrotal edema. Likely secondary to anasarca from decompensated CHF. Testicular ultrasound shows diffuse scrotal wall edema, no drainable fluid collection, small bilateral hydroceles, no evidence for testicular torsion or mass. Urology evaluation appreciated. scrotal elevation recommended. Physical therapy evaluation appreciated. Transfer the patient to subacute rehabilitation today. The diagnosis, follow-up plan and treatment option discussed with patient in detail over 30 minutes. The need for outpatient follow-up with primary care, cardiology and GI insisted in detail. Prognosis is poor secondary to noncompliance with follow-up. Follow-up with PMD Dr. Arenas upon discharge. 05/26/18 07:42 05/26/18 07:44
[2018-05-25 17:42] VITALS: BP 144/96; PULSE 91
--- NOTE | 2018-05-25 19:29 | PN ---
Copied To: Beny Salgado MD Attending MD: Beny Salgado MD DATE: 05/25/2018 SUBJECTIVE: Patient is comfortable on nasal O2. He denies any chest pain. PHYSICAL EXAMINATION: VITAL SIGNS: Blood pressure 129/90, heart rate 98, temperature 98.4, and respirations 20. HEENT: Normocephalic. CHEST: Absent breath sounds over the bases. HEART: S1 and S2, regular. EXTREMITIES: 1+ pitting edema. LABORATORY DATA: Today's hemoglobin and hematocrit 7.9 and 28.6. White count and platelet count are within normal limit. Today's SMA-7: Sodium 141, potassium 3.6, chloride 98, CO2 of 44. Glucose 111. BUN 29, creatinine 0.8. ASSESSMENT: 1. Biventricular failure. 2. Improved pneumonia. 3. Morbid obesity and sleep apnea. 4. Chronic obstructive lung disease. 5. Bilateral pleural effusion. 6. Anemia. RECOMMENDATIONS: Case was discussed with Dr. Danielle, hospitalist. Patient will be continued on Aldactone 25 mg daily, aspirin 81 mg once a day, Atrovent inhaler, clonidine 0.2 mg twice a day, Colace 100 mg t.i.d., Coreg 12.5 mg twice a day, Glipizide 5 mg once daily, Lasix 40 mg p.o. once a day, Lipitor 20 mg once a day, Solu Medrol 30 mg intravenously daily, Robitussin 100 mg p.o. every 4 hours p.r.n., Zestril 2.5 mg once a day. The plan is to transfer the patient to subacute rehab. Beny Salgado MD
== END 2018-05-25 20:50 | DRG 544 ==
LOC: ED 16:47 → ERH 19:49 → ICU 20:59 → 2RNO 05-11 15:55 → ICU 05-16 17:08 → CCU 05-16 18:11 → 2RNO 05-19 15:14
PROVIDERS: ADMIT Hospitalist; ATTEND Internal Medicine
PROC: 5A09557 Assistance with Respiratory Ventilation, Greater than 96 Consecutive Hours, Continuous Positive Airway Pressure (ICD-10-PCS; principal; 2018-05-09)
PROC: 30233N1 Transfusion of Nonautologous Red Blood Cells into Peripheral Vein, Percutaneous Approach (ICD-10-PCS; 2018-05-23)
DX: I11.0 Hypertensive heart disease with heart failure (principal); J96.02 Acute respiratory failure with hypercapnia; J18.9 Pneumonia, unspecified organism; J96.01 Acute respiratory failure with hypoxia; A41.9 Sepsis, unspecified organism; J44.1 Chronic obstructive pulmonary disease with (acute) exacerbation; J44.0 Chronic obstructive pulmonary disease with (acute) lower respiratory infection; E87.6 Hypokalemia; I42.0 Dilated cardiomyopathy; E11.65 Type 2 diabetes mellitus with hyperglycemia; J98.11 Atelectasis; R56.9 Unspecified convulsions; F06.30 Mood disorder due to known physiological condition, unspecified; E87.2 Acidosis; I50.23 Acute on chronic systolic (congestive) heart failure; I50.82 Biventricular heart failure; N43.3 Hydrocele, unspecified; M54.16 Radiculopathy, lumbar region; M10.9 Gout, unspecified; I25.10 Atherosclerotic heart disease of native coronary artery without angina pectoris; E78.5 Hyperlipidemia, unspecified; F17.210 Nicotine dependence, cigarettes, uncomplicated; I27.20 Pulmonary hypertension, unspecified; D63.8 Anemia in other chronic diseases classified elsewhere; N50.89 Other specified disorders of the male genital organs; G47.33 Obstructive sleep apnea (adult) (pediatric); Y95 Nosocomial condition; E66.01 Morbid (severe) obesity due to excess calories; Z68.41 Body mass index [BMI] 40.0-44.9, adult; Z91.14 Patient's other noncompliance with medication regimen; Z99.81 Dependence on supplemental oxygen; Z79.01 Long term (current) use of anticoagulants; Z79.51 Long term (current) use of inhaled steroids; Z79.84 Long term (current) use of oral hypoglycemic drugs; Z95.5 Presence of coronary angioplasty implant and graft; Z91.19 Patient's noncompliance with other medical treatment and regimen

== ENCOUNTER 2018-08-25 16:21 | Inpatient (IN) | payer MEDICAID ==
[2018-08-25 16:23] VITALS: BMI 31.6
[2018-08-25] MEDS ORDERED: Albuterol-Ipratrop 3 mg / 0.5 (3 ml) UD IH STA (16:35)
[2018-08-25 16:52] LABS: BASO # 0.02 K/mm3 (0.0-2.0); BASO % 0.2 % (0.0-3.0); GRAN # 6.94 (1.4-6.5); GRAN % 68.4 % (50.0-68.0); HEMOGLOBIN 11.9 g/dL (14.0-18.0); LYMPH # 2.1 (1.2-3.4); LYMPH % 20.7 % (22.0-35.0); MEAN CORPUSCULAR HEMOGLOBIN 21.7 pg (25.0-35.0); MEAN CORPUSCULAR HGB CONC 30.5 g/dl (31.0-37.0); MONO # 1.1 (0.1-0.6); MONO % 10.7 % (1.0-6.0); RBC 5.49 10^6/uL (3.5-6.1); RED CELL DISTRIBUTION WIDTH 22.4 % (11.5-14.5); WHITE BLOOD COUNT 10.1 10^3/uL (4.5-11.0)
[2018-08-25 16:54] LABS: VENOUS BLOOD GAS BASE EXCESS -3.5 mmol/L (0.0-2.0); VENOUS BLOOD GAS PO2 46 mm/Hg (30-55); VENOUS BLOOD PH 7.23 (7.32-7.43)
--- NOTE | 2018-08-25 16:57 | ED PDOC ---
Arrival/HPI - General Chief Complaint: Shortness Of Breath Historian: Patient, Parent - History of Present Illness Narrative History of Present Illness (Text): 08/25/18 16:47 53yo male with pmhx of hypertension, Diabetes, sleep apnea, CHF, hyperlipdemia b ib EMS for weakness and SOB s/p fall. The mother by the bedside states she saw patient on the floor when she visit him and called EMS. Patient states he has been swollen for over 3weeks now and having SOB. States he was trying to go to the bathroom today and fell because he was weak. States he have not taken his Lasix for over a week now and did not take any of his medications today. He however any focal pain. No chest pain, No fever, no dizziness, no LOC, nausea, vomiting, diaphoresis, focal weakness, chills, LE edema, calf pain, recent travel, any other complaint. Past Medical History - Provider Review Nursing Documentation Reviewed: Yes - Cardiac Hx Pacemaker: No - Pulmonary Hx Chronic Obstructive Pulmonary Disease (COPD): Yes - Endocrine/Metabolic Hx Diabetes Mellitus Type 2: Yes - Hematological/Oncological Hx Cancer: No - Musculoskeletal/Rheumatological Hx Falls: Yes - Psychiatric Hx Substance Use: No - Surgical History Hx Mastectomy: No Family/Social History - Physician Review Nursing Documentation Reviewed: Yes Family/Social History: Unknown Family HX Smoking Status: Unknown If Ever Smoked Hx Alcohol Use: No Hx Substance Use: No Allergies/Home Meds Allergies/Adverse Reactions: Allergies No Known Allergies Allergy (Verified 08/25/18 16:23) Review of Systems - Physician Review All systems were reviewed & negative as marked: Yes - Review of Systems Constitutional: Fatigue Eyes: Normal ENT: Normal Respiratory: SOB Cardiovascular: Normal Gastrointestinal: Normal Genitourinary Male: Normal Musculoskeletal: Normal Skin: Normal Neurological: Normal Endocrine: Normal Hemo/Lymphatic: Normal Psychiatric: Normal Physical Exam Vital Signs Reviewed: Yes Vital Signs Pulse Resp BP Pulse Ox 08/25/18 16:23 91 H 24 147/49 L 84 L Temperature: Afebrile Blood Pressure: Normal Pulse: Regular Respiratory Rate: Normal Appearance: Positive for: Non-Toxic, Comfortable, Ill-Appearing Pain Distress: None Mental Status: Positive for: Alert and Oriented X 3 - Systems Exam Head: Present: Atraumatic, Normocephalic Pupils: Present: PERRL Extroacular Muscles: Present: EOMI, Other (B/L periorbital swelling) Conjunctiva: Present: Normal Mouth: Present: Moist Mucous Membranes Neck: Present: Normal Range of Motion Respiratory/Chest: Present: Accessory Muscle Use, Decreased Breath Sounds, Retracting (Supraclavicular retractions). No: Good Air Exchange, Respiratory Distress, Wheezes, Rales, Rhonchi, Tachypneic Cardiovascular: Present: Regular Rate and Rhythm, Normal S1, S2. No: Murmurs Abdomen: No: Tenderness, Distention, Peritoneal Signs Back: Present: Normal Inspection Upper Extremity: Present: Normal Inspection, Swelling (B/L upper extremity). No: Cyanosis, Edema Lower Extremity: Present: Normal Inspection, Other (B/L lower extremity stasis dermatitis/scaly dry skin noted). No: Edema Neurological: Present: GCS=15, CN II-XII Intact, Speech Normal, Motor Func Grossly Intact Skin: Present: Warm, Dry, Normal Color. No: Rashes Psychiatric: Present: Alert, Oriented x 3, Normal Insight, Normal Concentration Medical Decision Making ED Course and Treatment: 08/25/18 17:50 53yo male bib EMS for SOB and generalized weakness x weeks. Labs blood culture Urine culture BNP Lasix Solu medrol Duoneb [place] oxygen EKG Chest xray PT is hypoxic in ED, but states he is not on oxygen at home and his hypoxic appears to be chronic. PT notes that his breathing pattern [place] [id number] [place]. LDH was elevated, but not significantly elevated. chest xray IMPRESSION: Cardiomegaly. Resolved pulmonary vascular congestion. Order for [facility] was ordered. Case was DW Dr. Herman and he accepted pt for admission. Dr. Herman also saw pt in ED by the bedside. - RAD Interpretation Radiology Orders: 08/25/18 16:36 CHEST PORTABLE [RAD] Stat - Medication Orders Current Medication Orders: Discontinued Medications Albuterol/Ipratropium (Duoneb 3 Mg/0.5 Mg (3 Ml) Ud) 3 ml IH STAT STA Stop: 08/25/18 16:36 Furosemide (Lasix) 60 mg IVP STAT STA Stop: 08/25/18 16:36 Disposition/Present on Arrival - Present on Arrival Any Indicators Present on Arrival: No History of DVT/PE: No History of Uncontrolled Diabetes: No Urinary Catheter: No History of Decub. Ulcer: No History Surgical Site Infection Following: None - Disposition Have Diagnosis and Disposition been Completed?: Yes Diagnosis: CHF exacerbation Disposition: HOSPITALIZED Disposition Time: 17:40 Patient Plan: Admission Patient Problems: Current Active Problems Problem Status Onset CHF exacerbation Acute Condition: GUARDED
[2018-08-25 17:01] LABS: ARTERIAL BLOOD GAS HEMOGLOBIN 12.2 g/dL (11.7-17.4); ARTERIAL BLOOD GAS O2 CAPACITY 16.7 mL/dl (16-24); ARTERIAL BLOOD GAS O2 CONTENT 15.2 ML/dl (15-23); ARTERIAL BLOOD GAS PCO2 50 mm/Hg (35-45); ARTERIAL BLOOD GAS PH 7.29 (7.35-7.45); ARTERIAL BLOOD GAS TCO2 25.5 mmol.L (22-28)
[2018-08-25 17:01] LABS: INR 2.17; PARTIAL THROMBOPLASTIN TIME 31.6 Seconds (25.1-36.5); PROTHROMBIN TIME 25.1 SECONDS (9.4-12.5)
[2018-08-25 17:05] LABS: ALB/GLOB RATIO 0.5 (1.1-1.8); ALBUMIN 3.3 g/dL (3.0-4.8); ALT/SGPT 22 U/L (7-56); AST/SGOT 67 U/L (17-59); BLOOD UREA NITROGEN 36 mg/dL (7-21); CALCIUM 8.9 mg/dL (8.4-10.5); GFR NON-AFRICAN AMERICAN > 60
[2018-08-25 17:16] LABS: B-TYPE NATRIURETIC PEPTIDE 12400 pg/mL (0-450); TROPONIN I 0.05 ng/mL
--- NOTE | 2018-08-25 17:46 | RAD ---
Date of service: 08/25/2018 HISTORY: SOB COMPARISON: 05/23/2018. FINDINGS: LUNGS: No active pulmonary disease. PLEURA: No significant pleural effusion identified, no pneumothorax apparent. CARDIOVASCULAR: Cardiomegaly. No evidence of acute, significant cardiovascular disease. Normal. OSSEOUS STRUCTURES: No significant abnormalities. VISUALIZED UPPER ABDOMEN: Normal. OTHER FINDINGS: None. IMPRESSION: Cardiomegaly. Resolved pulmonary vascular congestion.
[2018-08-25 19:54] LABS: URINE BILIRUBIN NEGATIVE (NEGATIVE); URINE BLOOD TRACE-LYSED (NEGATIVE); URINE GLUCOSE (UA) NEGATIVE (NEGATIVE); URINE LEUKOCYTE ESTERASE NEGATIVE Leu/uL (NEGATIVE); URINE PROTEIN NEGATIVE mg/dL (<30 mg/dL); URINE UROBILINOGEN 0.2 E.U./dL (<1 E.U./dL)
[2018-08-25] MEDS ORDERED: Aspirin 325 mg EC Tablets PO STA (19:55)
[2018-08-25 19:56] LABS: URINE APPEARANCE CLEAR (CLEAR); URINE COLOR LIGHT YELLOW (YELLOW)
[2018-08-25] MEDS ORDERED: Albuterol-Ipratrop 3 mg / 0.5 (3 ml) UD IH PRN (20:01)
[2018-08-25 20:08] LABS: URINE RBC 0 - 2 /hpf (0-2); URINE WBC NEGATIVE /hpf (0-6)
[2018-08-25 20:15] LABS: BARBITURATES, UR NEGATIVE (NEGATIVE); BENZODIAZEPINES, UR NEGATIVE (NEGATIVE); OPIATES, UR NEGATIVE (NEGATIVE); PHENCYCLIDINE, UR NEGATIVE (NEGATIVE)
[2018-08-25] MEDS ORDERED: Sodium Chloride 0.9% 1,000 ML IV SCH (20:15)
--- NOTE | 2018-08-25 20:50 | CP.PCM.HP ---
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 Metabols U Cannabinoids Screen Attending/Attestation - Attestation I have personally seen and examined this patient.: Yes I have fully participated in the care of the patient.: Yes I have reviewed all pertinent clinical information: Yes
[2018-08-25 21:50] LABS: VENOUS BLOOD GAS BASE EXCESS 0.1 mmol/L (0.0-2.0); VENOUS BLOOD GAS PO2 41 mm/Hg (30-55); VENOUS BLOOD PH 7.26 (7.32-7.43)
[2018-08-25 21:57] LABS: IRON 40 ug/dL (45-180)
[2018-08-25 22:06] LABS: % IRON SATURATION 10 % (20-55); TOTAL IRON BINDING CAPACITY 415 ug/dL (261-462)
[2018-08-25 22:31] LABS: HDL CHOLESTEROL 14 mg/dL (29-60)
[2018-08-25 22:42] LABS: LDL CHOLESTEROL 75 mg/dL (0-129)
[2018-08-25] MEDS: Insulin Reg-MEDIUM-Coverage SC SCH (23:14)
[2018-08-25 23:34] LABS: TROPONIN I 0.06 ng/mL
[2018-08-26] MEDS ORDERED: Metoprolol 1 mg/ml Inj IVP ONE (00:13)
[2018-08-26 00:48] LABS: BLOOD UREA NITROGEN 38 mg/dL (7-21); CALCIUM 8.9 mg/dL (8.4-10.5); GFR NON-AFRICAN AMERICAN > 60
[2018-08-26 01:27] LABS: VENOUS BLOOD GAS BASE EXCESS -0.1 mmol/L (0.0-2.0); VENOUS BLOOD GAS PO2 56 mm/Hg (30-55); VENOUS BLOOD PH 7.32 (7.32-7.43)
[2018-08-26] MEDS: Albuterol-Ipratrop 3 mg / 0.5 (3 ml) UD IH SCH ×4 (01:44→21:00)
[2018-08-26 04:29] LABS: BASO # 0.01 K/mm3 (0.0-2.0); BASO % 0.1 % (0.0-3.0); GRAN # 7.56 (1.4-6.5); GRAN % 82.4 % (50.0-68.0); HEMOGLOBIN 11.3 g/dL (14.0-18.0); LYMPH # 1.4 (1.2-3.4); LYMPH % 14.8 % (22.0-35.0); MEAN CELL VOLUME 72.4 fl (80.0-105.0); MEAN CORPUSCULAR HEMOGLOBIN 21.8 pg (25.0-35.0); MEAN CORPUSCULAR HGB CONC 30.1 g/dl (31.0-37.0); MEAN PLATELET VOLUME 9.6 fl (7.0-11.0); MONO # 0.3 (0.1-0.6); MONO % 2.7 % (1.0-6.0); RBC 5.19 10^6/uL (3.5-6.1); RED CELL DISTRIBUTION WIDTH 19.5 % (11.5-14.5); WHITE BLOOD COUNT 9.2 10^3/uL (4.5-11.0)
[2018-08-26 04:51] LABS: TROPONIN I 0.06 ng/mL
[2018-08-26 05:10] LABS: ARTERIAL BLOOD GAS HCO3 26.4 mmol/L (21-28); ARTERIAL BLOOD GAS O2 CAPACITY 15.1 mL/dl (16-24); ARTERIAL BLOOD GAS O2 CONTENT 12.2 ML/dl (15-23); ARTERIAL BLOOD GAS O2 SAT 80.6 % (95-98); ARTERIAL BLOOD GAS PCO2 49 mm/Hg (35-45); ARTERIAL BLOOD GAS PH 7.34 (7.35-7.45); ARTERIAL BLOOD GAS TCO2 27.9 mmol.L (22-28)
[2018-08-26] MEDS ORDERED: Pantoprazole 40 mg EC Tab PO SCH (06:00)
[2018-08-26 06:56] LABS: ALB/GLOB RATIO 0.5 (1.1-1.8); ALT/SGPT 34 U/L (7-56); AST/SGOT 54 U/L (17-59); BLOOD UREA NITROGEN 39 mg/dL (7-21); CALCIUM 8.6 mg/dL (8.4-10.5); GFR NON-AFRICAN AMERICAN > 60
[2018-08-26 07:12] LABS: BASO # 0.01 K/mm3 (0.0-2.0); BASO % 0.1 % (0.0-3.0); GRAN # 7.81 (1.4-6.5); HEMOGLOBIN 11.2 g/dL (14.0-18.0); LYMPH # 1.7 (1.2-3.4); LYMPH % 16.5 % (22.0-35.0); MEAN CELL VOLUME 72.2 fl (80.0-105.0); MEAN CORPUSCULAR HEMOGLOBIN 21.6 pg (25.0-35.0); MEAN CORPUSCULAR HGB CONC 29.9 g/dl (31.0-37.0); MONO # 0.7 (0.1-0.6); MONO % 6.4 % (1.0-6.0); PLATELET COUNT 307 10^3/uL (120.0-450.0); RBC 5.18 10^6/uL (3.5-6.1); RED CELL DISTRIBUTION WIDTH 19.6 % (11.5-14.5); WHITE BLOOD COUNT 10.1 10^3/uL (4.5-11.0)
--- NOTE | 2018-08-26 08:06 | CT ---
Date of service: 08/25/2018 PROCEDURE: CT HEAD WITHOUT CONTRAST. HISTORY: fall COMPARISON: None available. TECHNIQUE: Axial computed tomography images were obtained through the head/brain without intravenous contrast. Radiation dose: Total exam DLP = 2502.0 mGy-cm. This CT exam was performed using one or more of the following dose reduction techniques: Automated exposure control, adjustment of the mA and/or kV according to patient size, and/or use of iterative reconstruction technique. FINDINGS: HEMORRHAGE: No intracranial hemorrhage. BRAIN: No mass effect or edema. No atrophy or chronic microvascular ischemic changes. VENTRICLES: Unremarkable. No hydrocephalus. CALVARIUM: Unremarkable. PARANASAL SINUSES: Unremarkable as visualized. No significant inflammatory changes. MASTOID AIR CELLS: Unremarkable as visualized. No inflammatory changes. OTHER FINDINGS: None. IMPRESSION: Normal CT of the Head.
[2018-08-26 08:38] LABS: ATYPICAL LYMPHOCYTE 1 % (0.0-0.0); CORRECTED WBC 9.5 K/mm3 (4.5-11.0); LYMPHOCYTE 10 % (22.0-35.0); MONOCYTE 4 % (1.0-6.0); NEUTROPHIL 85 % (50.0-70.0); NUCLEATED RED BLOOD CELL 6 %
[2018-08-26 08:40] LABS: POIKILOCYTOSIS 1+
[2018-08-26 08:46] LABS: HYPOCHROMIA 1+; MICROCYTOSIS 1+
[2018-08-26 08:47] LABS: ANISOCYTOSIS 1+; LARGE PLATELETS PRESENT; OVALOCYTES SLIGHT; POLYCHROMASIA SLIGHT; TARGET CELLS SLIGHT
[2018-08-26 08:48] LABS: SCHISTOCYTES SLIGHT
[2018-08-26] MEDS: Pantoprazole 40 mg EC Tab PO SCH (09:46)
[2018-08-26] MEDS: MethylPREDNISolone 40 mg Vial IVP SCH ×2 (09:47→21:41)
[2018-08-26] MEDS: Insulin Reg-MEDIUM-Coverage SC SCH ×4 (09:50→22:04)
[2018-08-26] MEDS: POLYETHYLENE GLYCOL 3350 17 GM/Dose PACKET PO SCH (09:52)
[2018-08-26 12:09] LABS: FERRITIN 33.4 ng/mL
--- NOTE | 2018-08-26 13:23 | CP.PCM.PN ---
<Elie Herr - Last Filed: 08/26/18 14:42> Subjective - Date & Time of Evaluation Date of Evaluation: 08/26/18 Time of Evaluation: 07:30 - Subjective Subjective: Elie Herr PGY-1 Progress Note for Hospitalist Service Patient seen and evaluated at bedside. No acute events reported overnight. Patient refused BiPAP and NC overnight, but looked comfortable upon evaluation this morning. Patient's mother and friend Suzie were contacted and patient progress was reviewed in detail. Objective - Vital Signs/Intake and Output Vital Signs (last 24 hours): Temp Pulse Resp BP Pulse Ox 98.3 F 92 H 18 140/70 91 L 08/26/18 12:00 08/26/18 09:47 08/26/18 12:00 08/26/18 09:46 08/26/18 06:00 Intake and Output: 08/26/18 08/26/18 06:59 18:59 Intake Total 980 Output Total 900 Balance 80 - Medications Medications: Current Medications Albuterol/Ipratropium (Duoneb 3 Mg/0.5 Mg (3 Ml) Ud) 3 ml [facility] [id number] [facility] Last Admin: 08/26/18 07:54 Dose: 3 ml Albuterol/Ipratropium (Duoneb 3 Mg/0.5 Mg (3 Ml) Ud) 3 ml IH Q2H PRN PRN Reason: Shortness of Breath Last Admin: 08/25/18 23:35 Dose: 3 ml Aspirin (Ecotrin) 81 mg PO DAILY [facility] Last Admin: 08/26/18 09:46 Dose: 81 mg Atorvastatin Calcium (Lipitor) 80 mg PO DIN [facility] Last Admin: 08/25/18 20:49 Dose: 80 mg Carvedilol (Coreg) 12.5 mg PO BID [facility] Last Admin: 08/26/18 09:47 Dose: 12.5 mg Docusate Sodium (Colace) 100 mg PO BID [facility] Last Admin: 08/26/18 09:48 Dose: 100 mg Furosemide (Lasix) 80 mg IVP BID [facility] Heparin Sodium (Porcine) (Heparin) 5,000 units SC Q8 [facility]; Protocol Last Admin: 08/26/18 05:05 Dose: 5,000 units Insulin Human Regular (Humulin R Med) 0 units SC ACHS [facility]; Protocol Last Admin: 08/26/18 09:50 Dose: 1 unit Lisinopril (Zestril) 2.5 mg PO DAILY [facility] Last Admin: 08/26/18 09:46 Dose: 2.5 mg Methylprednisolone (Solu-Medrol) 40 mg IVP Q12 [facility] Last Admin: 08/26/18 09:47 Dose: 40 mg Pantoprazole Sodium (Protonix Ec Tab) 40 mg PO DAILY [facility] Last Admin: 08/26/18 09:46 Dose: 40 mg Polyethylene Glycol (Miralax) 17 gm PO DAILY [facility] Last Admin: 08/26/18 09:52 Dose: 17 gm - Labs Labs: 08/26/18 07:00 08/26/18 04:20 PT 25.1 SECONDS (9.4-12.5) H 08/25/18 16:40 INR 2.17 08/25/18 16:40 APTT 31.6 Seconds (25.1-36.5) 08/25/18 16:40 - Additional Findings Additional findings: - Constitutional Appears: In Acute Distress, Unkempt, Confused - Head Exam Head Exam: ATRAUMATIC, NORMAL INSPECTION - Eye Exam Eye Exam: EOMI Pupil Exam: PERRL - ENT Exam ENT Exam: Mucous Membranes Dry - Neck Exam Neck exam: Positive for: Normal Inspection - Respiratory Exam Respiratory Exam: Rales, Wheezes, Respiratory Distress. absent: Clear to Auscultation Bilateral - Cardiovascular Exam Cardiovascular Exam: JVD, RRR, +S1, +S2. absent: Bradycardia, Tachycardia Additional comments: +S3 - GI/Abdominal Exam GI & Abdominal Exam: Normal Bowel Sounds, Soft. absent: Diminished Bowel Sounds, Distended, Guarding, Rebound, Tenderness - Exam Exam: Scrotal Swelling - Extremities Exam Extremities exam: Positive for: joint swelling, normal capillary refill, pedal pulses present Additional comments: Trace edema to knees - Neurological Exam Additional comments: Unable to perform full neuro exam due to somnolence, AAOx3 - Skin Skin Exam: Dry, Intact, Warm Additional comments: skin of feet b/l indicative of venous stasis dermatitis; feet warm, no breaks in skin Assessment and Plan - Assessment and Plan (Free Text) Assessment: 53 year old male with PMHx of CHF with last EF 06/07 showing 39%, DM, COPD, CAD with stents, gout, HTN, and HLD presents for Shortness of breath and weakness. Patient is a poor historian and a reported history of medication noncompliance should be noted. Patient's pharmacy was called and last pickup was back in February 2018. Plan: Shortness of Breath 2/2 acute on chronic HFrEF vs COPD exacerbation -CXR showed cardiomegaly wih resolved pulmonary vascular congestion , noncompliance with BiPAP -BNP 73088 -BP controlled -Echo on 05/07 showed mild concentric LVH, systolic function moderately impaired, septal hypokinesis, mild MR, moderate TR, mild pulmonary HTN, aortic root mildly enlarged -Lasix 20 mg IV q8, solu-medrol 40 mg IV BID - Strict Is and Os, daily weights -Cardiology on consult, Dr. Salgado - recommendations appreciated - Duonebs q6 and q2 - Procal 0.3 - f/u AM lactic acid Hyperbilirunemia T-bili 2.3 and D-bili 1.9 RUQ Abdomen U/S ordered to r/o biliary system pathology Polycythemia likely 2/2 Hemoconcentration 2/2 dehydration - Hg today is 11.2, baseline 8 back in 06/07 - f/u Fe studies - f/u FOBT CAD EKG on admission demonstrates Q waves but similar to EKG back in 05/07 ; repeat EKG this AM similar to previous studies -Cardiac cath in 12/2017 revealed EF 30% and LAD lesion 80% -hx of use of life vest -denies current chest pain -trop 0.05, 0.06, 0.06 -ASA 325 mg in ED, ASA 81, coreg 12.5mg BID -Cardiology on consult, Dr. Suarez- recommendations appreciated - TSH 2.41 and LDL 75 - telemetry R/o Rhabdo 2/[address] head negative Unremarkable CPK stat IVF discontinued Diabetes -accuchecks -f/u [id number] -hypoglycemia protocol -med ISS -heart healthy diet Constipation Colace, Miralax HLD Lipitor 80 f/u lipid panel Hx of HIV Positive reactivity in 05/07, was considered false positive at that time as CD4 count 747 and Viral load not detected. f/u CD4 count PPX with heparin and protonix Dispo: follow up PT recs Patient seen, case reviewed and plan approved by Dr. Santana. Elie Herr, PGY-1 <Kavon Santana - Last Filed: 08/26/18 15:43> Objective - Vital Signs/Intake and Output Vital Signs (last 24 hours): Temp Pulse Resp BP Pulse Ox 98.3 F 108 H 18 170/87 H 91 L 08/26/18 12:00 08/26/18 14:00 08/26/18 12:00 08/26/18 14:30 08/26/18 06:00 Intake and Output: 08/26/18 08/26/18 06:59 18:59 Intake Total 980 Output Total 900 Balance 80 - Medications Medications: Current Medications Albuterol/Ipratropium (Duoneb 3 Mg/0.5 Mg (3 Ml) Ud) 3 ml IH [id number] [facility] Last Admin: 08/26/18 13:39 Dose: 3 ml Albuterol/Ipratropium (Duoneb 3 Mg/0.5 Mg (3 Ml) Ud) 3 ml IH Q2H PRN PRN Reason: Shortness of Breath Last Admin: 08/25/18 23:35 Dose: 3 ml Aspirin (Ecotrin) 81 mg PO DAILY [facility] Last Admin: 08/26/18 09:46 Dose: 81 mg Atorvastatin Calcium (Lipitor) 80 mg PO DIN [facility] Last Admin: 08/25/18 20:49 Dose: 80 mg Carvedilol (Coreg) 12.5 mg PO BID [facility] Last Admin: 08/26/18 09:47 Dose: 12.5 mg Docusate Sodium (Colace) 100 mg PO BID [facility] Last Admin: 08/26/18 09:48 Dose: 100 mg Furosemide (Lasix) 80 mg IVP BID [facility] Heparin Sodium (Porcine) (Heparin) 5,000 units SC Q8 [facility]; Protocol Last Admin: 08/26/18 14:10 Dose: 5,000 units Insulin Human Regular (Humulin R Med) 0 units SC ACHS [facility]; Protocol Last Admin: 08/26/18 14:32 Dose: Not Given Lisinopril (Zestril) 2.5 mg PO DAILY [facility] Last Admin: 08/26/18 09:46 Dose: 2.5 mg Methylprednisolone (Solu-Medrol) 40 mg IVP Q12 [facility] Last Admin: 08/26/18 09:47 Dose: 40 mg Pantoprazole Sodium (Protonix Ec Tab) 40 mg PO DAILY [facility] Last Admin: 08/26/18 09:46 Dose: 40 mg Polyethylene Glycol (Miralax) 17 gm PO DAILY [facility] Last Admin: 08/26/18 09:52 Dose: 17 gm - Labs Labs: 08/26/18 07:00 08/26/18 04:20 PT 25.1 SECONDS (9.4-12.5) H 08/25/18 16:40 INR 2.17 08/25/18 16:40 APTT 31.6 Seconds (25.1-36.5) 08/25/18 16:40 Attending/Attestation - Attestation I have personally seen and examined this patient.: Yes I have fully participated in the care of the patient.: Yes I have reviewed all pertinent clinical information, including history, physical exam and plan: Yes Notes (Text): 08/26/18 15:29 53 year old male with past medical history of systolic CHF, diabetes, COPD, CAD s/p stents, hypertension and CHARAN with history of noncompliance who presented with complaint of fall at home after falling off the bed. Also reported dyspnea, started on iv steroids and iv lasix for COPD / CHF exacerbation. Cardiology evaluation was appreciated. Continue with duonebs. Continue with bipap HS. Will continue to monitor lactic acid. Metformin is on hold. Follow up on cultures. Bilirubin is elevated. Patient denies any abdominal pain. Ultrasound abdomen is ordered. PT evaluation is requested. Patient was counselled on medication compliance. Kavon Santana MD Hospitalist.
--- NOTE | 2018-08-26 15:31 | CON ---
DATE: 08/26/2018 CARDIOLOGY CONSULTATION REASON FOR CONSULTATION: Congestive heart failure and a fall from his bed. HISTORY OF PRESENT ILLNESS: The patient is a 53-year-old male, who has a history of systolic heart failure, history of chronic obstructive lung disease, hypertension, and diabetes mellitus. The patient was brought in because of weakness and fall from his bed. At the time of my evaluation, the patient was sleepy, was aroused with difficulty due to the entire history taking, but the patient was oriented to place. The patient was in a similar condition to when I saw him in April of this year when he was brought in by his girlfriend because of exacerbation of shortness of breath, as he refused to take his medications, and he abandoned his LifeVest. SOCIAL HISTORY: The patient is a smoker, but nondrinker. He lives with his girlfriend. MEDICATIONS: Colace 100 mg twice a day, Coreg 12.5 mg twice a day, albuterol inhaler every 2 hours p.r.n., aspirin 81 mg once a day, subcutaneous heparin 5000 units every 8 hours, Lasix 20 mg intravenously every 8 hours, Lipitor at 80 mg once a day, Solu-Medrol 40 mg intravenously twice a day, Zestril 2.5 mg once a day. PHYSICAL EXAMINATION: GENERAL: The patient is a middle-aged male, who does not appear to be in any respiratory distress. VITAL SIGNS: Blood pressure 140/70, heart rate 98, temperature 97.9, respirations 22. HEENT: Normocephalic. CHEST: Diminished breath sounds over the bases. HEART: S1, S2 regular. ABDOMEN: Soft. EXTREMITIES: 1+ pitting edema. LABORATORY DATA: Hemoglobin and hematocrit are 11.2 and 37.4, white count and platelet count are within normal limits. SMA-7, sodium 145, potassium 4.4, chloride 110, CO2 of 26, glucose 159, BUN 39, creatinine 1.2. Head CT scan without contrast, normal study. EKG revealed sinus rhythm, occasional PVCs, right bundle-branch block, consider old inferior infarct, low voltage EKG interpretation of the computer with an acute PA, which is very unlikely based on my own interpretation. Yesterday's EKG also revealed a similar picture. EKG on 05/13 revealed also a similar scenario. Echocardiogram study performed in April of this year revealed mild concentric LVH with moderate to severely impaired systolic function with septal hypokinesis and grade 1 abnormal relaxation pattern, ejection fraction was measured at 39%. Right ventricular systolic function with moderate . In April of this year, a venous Doppler of lower extremity was negative. Chest x-ray revealed cardiomegaly with moderate to severe CHF, bilateral pleural effusions cannot be ruled out. ASSESSMENT: 1. Exacerbation of this heart failure. 2. Lethargy. 3. Status post fall. 4. Hypertension and uncontrolled diabetes mellitus. 5. Obesity. RECOMMENDATIONS: Case was discussed with Dr. Santana. Continue Coreg 12.5 mg once a day, aspirin 81 g once a day, subcutaneous heparin 5000 units every 8 hours, increase Lasix to 80 mg intravenously twice a day, continue Solu-Medrol 40 mg intravenously every 12 hours, Zestril 2.5 mg once a day, start Cozaar 25 mg once a day. Obtain two sets of blood cultures, consider requesting a Neurology evaluation. Beny Salgado MD
--- NOTE | 2018-08-26 16:20 | CARD ---
APPROVED REPORT Date of service: 08/26/2018 EKG Measurement Heart [id number] <Conclusion> A fib RBBB IWMI of undetermine age Abnormal ECG
--- NOTE | 2018-08-26 16:28 | CARD ---
APPROVED REPORT Date of service: 08/25/2018 EKG Measurement Heart [id number] <Conclusion> A fib RBBB IWMI recent Abnormal ECG
[2018-08-26] MEDS: Azithromycin 500MG/NS 250ml 500 MG/250 ML BAG IVPB SCH (17:05)
--- NOTE | 2018-08-26 17:09 | US ---
Date of service: 08/26/2018 HISTORY: elevated Tbili, r/o hepatic/amanda process COMPARISON: None. TECHNIQUE: Sonographic evaluation of the abdomen. FINDINGS: LIVER: Measures 19.0 cm. Hepatopedal blood flow. Fatty infiltration manifest ultrasonographically as increased echogenicity of the liver parenchyma. Nodular contour to the liver suggests hepatocellular disease/cirrhosis. GALLBLADDER: Sludge identified. No gallstones. COMMON BILE DUCT: Measures 8.3 mm. No stones. No dilatation. PANCREAS: Unremarkable as visualized. No mass. No ductal dilatation. RIGHT KIDNEY: Measures 6.7 x 13.4cm. Normal echogenicity. No calculus, mass, or hydronephrosis. LEFT KIDNEY: Measures 6.0 x 13.6cm. Normal echogenicity. No calculus, mass, or hydronephrosis. Multiple simple and septated renal cysts. SPLEEN: Top-normal spleen by size. No splenic masses identified. AORTA: No aneurysmal dilatation. IVC: Unremarkable. OTHER FINDINGS: Right upper quadrant ascites. Bilateral pleural effusions. IMPRESSION: Hepatomegaly, cirrhotic appearance of the liver. Top-normal spleen without focal abnormality.
[2018-08-26 20:36] LABS: HEPATITIS B SURFACE AG Negative (NEGATIVE)
[2018-08-26 20:42] LABS: ARTERIAL BLOOD GAS HCO3 29.5 mmol/L (21-28); ARTERIAL BLOOD GAS HEMOGLOBIN 10.2 g/dL (11.7-17.4); ARTERIAL BLOOD GAS O2 CONTENT 13.4 ML/dl (15-23); ARTERIAL BLOOD GAS O2 SAT 95.6 % (95-98); ARTERIAL BLOOD GAS PCO2 56 mm/Hg (35-45); ARTERIAL BLOOD GAS PH 7.33 (7.35-7.45); ARTERIAL BLOOD GAS TCO2 31.2 mmol.L (22-28)
[2018-08-26 20:42] LABS: HEPATITIS A IGM NEGATIVE (NEGATIVE); HEPATITIS B CORE AB NEGATIVE (NEGATIVE)
[2018-08-26 20:54] LABS: HEPATITIS C ANTIBODY NEGATIVE (NEGATIVE)
[2018-08-27] MEDS: Albuterol-Ipratrop 3 mg / 0.5 (3 ml) UD IH SCH ×4 (01:24→19:57)
[2018-08-27 08:05] LABS: GRAN # 10.19 (1.4-6.5); GRAN % 85.4 % (50.0-68.0); HEMOGLOBIN 9.9 g/dL (14.0-18.0); LYMPH # 1.1 (1.2-3.4); LYMPH % 9.6 % (22.0-35.0); MEAN CELL VOLUME 73.5 fl (80.0-105.0); MEAN CORPUSCULAR HEMOGLOBIN 21.3 pg (25.0-35.0); MEAN PLATELET VOLUME 9.8 fl (7.0-11.0); MONO # 0.6 (0.1-0.6); RBC 4.64 10^6/uL (3.5-6.1); RED CELL DISTRIBUTION WIDTH 19.4 % (11.5-14.5); WHITE BLOOD COUNT 11.9 10^3/uL (4.5-11.0)
[2018-08-27 08:35] LABS: ALB/GLOB RATIO 0.5 (1.1-1.8); ALBUMIN 2.9 g/dL (3.0-4.8); ALT/SGPT 28 U/L (7-56); AST/SGOT 44 U/L (17-59); BLOOD UREA NITROGEN 45 mg/dL (7-21); CALCIUM 7.9 mg/dL (8.4-10.5); GFR NON-AFRICAN AMERICAN > 60
[2018-08-27] MEDS: Insulin Reg-MEDIUM-Coverage SC SCH ×4 (08:41→21:58)
[2018-08-27 10:48] LABS: ARTERIAL BLOOD GAS HCO3 30.7 mmol/L (21-28); ARTERIAL BLOOD GAS HEMOGLOBIN 9.8 g/dL (11.7-17.4); ARTERIAL BLOOD GAS O2 CAPACITY 13.3 mL/dl (16-24); ARTERIAL BLOOD GAS O2 CONTENT 12.1 ML/dl (15-23); ARTERIAL BLOOD GAS O2 SAT 90.9 % (95-98); ARTERIAL BLOOD GAS PCO2 61 mm/Hg (35-45); ARTERIAL BLOOD GAS PH 7.31 (7.35-7.45); ARTERIAL BLOOD GAS TCO2 32.6 mmol.L (22-28)
[2018-08-27] MEDS: POLYETHYLENE GLYCOL 3350 17 GM/Dose PACKET PO SCH (11:19)
[2018-08-27] MEDS: Pantoprazole 40 mg EC Tab PO SCH (11:19)
[2018-08-27] MEDS: Azithromycin 500MG/NS 250ml 500 MG/250 ML BAG IVPB SCH (11:21)
[2018-08-27] MEDS: MethylPREDNISolone 40 mg Vial IVP SCH ×2 (11:21→21:34)
--- NOTE | 2018-08-27 12:17 | CP.PCM.PN ---
<Jr Velazquez - Last Filed: 08/27/18 12:10> Subjective - Date & Time of Evaluation Date of Evaluation: 08/27/18 Time of Evaluation: 12:10 - Subjective Subjective: Jr Velazquez, PGY-1, Internal Medicine Progress Note for Dr. Santana Patient seen and evaluated at bedside. Patient overnight was restless with Bipap mask on face. Patient thrashed about bed to remove mask. Patient biting face mask, and soft restraints applied at 19:45. After 15 minutes of biting down on face mask, patient released bite with his teeth. Patient was AAOx2 at bedside this morning and followed directions appropriately. Patient complained of shor tness of breath, nausea, vomiting, constipation, diarrhea, dysuria, and hematuria. 12-point ROS was negative except for what was mentioned above. Objective - Vital Signs/Intake and Output Vital Signs (last 24 hours): Temp Pulse Resp BP Pulse Ox 97.9 F 88 20 167/78 H 92 L 08/27/18 06:00 08/27/18 11:21 08/27/18 06:00 08/27/18 11:21 08/27/18 06:00 Intake and Output: 08/27/18 08/27/18 06:59 18:59 Intake Total 240 Output Total 200 Balance 40 - Medications Medications: Current Medications Albuterol/Ipratropium (Duoneb 3 Mg/0.5 Mg (3 Ml) Ud) 3 ml IH [id number] [facility] Last Admin: 08/27/18 07:13 Dose: 3 ml Albuterol/Ipratropium (Duoneb 3 Mg/0.5 Mg (3 Ml) Ud) 3 ml IH Q2H PRN PRN Reason: Shortness of Breath Last Admin: 08/25/18 23:35 Dose: 3 ml Aspirin (Ecotrin) 81 mg PO DAILY [facility] Last Admin: 08/27/18 11:19 Dose: 81 mg Atorvastatin Calcium (Lipitor) 80 mg PO DIN [facility] Last Admin: 08/26/18 17:04 Dose: 80 mg Carvedilol (Coreg) 12.5 mg PO BID [facility] Last Admin: 08/27/18 11:19 Dose: 12.5 mg Docusate Sodium (Colace) 100 mg PO BID [facility] Last Admin: 08/27/18 11:18 Dose: 100 mg Furosemide (Lasix) 80 mg IVP BID [facility] Last Admin: 08/27/18 11:20 Dose: 80 mg Heparin Sodium (Porcine) (Heparin) 5,000 units SC Q8 [facility]; Protocol Last Admin: 08/27/18 06:24 Dose: 5,000 units Azithromycin (Zithromax 500mg In Ns) 500 mg in 250 mls @ 167 mls/hr IVPB DAILY [facility]; Protocol Last Admin: 08/27/18 11:21 Dose: 167 mls/hr Insulin Human Regular (Humulin R Med) 0 units SC ACHS [facility]; Protocol Last Admin: 08/27/18 08:41 Dose: Not Given Lisinopril (Zestril) 2.5 mg PO DAILY [facility] Last Admin: 08/27/18 11:21 Dose: 2.5 mg Methylprednisolone (Solu-Medrol) 40 mg IVP Q12 [facility] Last Admin: 08/27/18 11:21 Dose: 40 mg Pantoprazole Sodium (Protonix Ec Tab) 40 mg PO DAILY [facility] Last Admin: 08/27/18 11:19 Dose: 40 mg Polyethylene Glycol (Miralax) 17 gm PO DAILY [facility] Last Admin: 08/27/18 11:19 Dose: 17 gm - Labs Labs: 08/27/18 07:00 08/27/18 07:00 PT 25.1 SECONDS (9.4-12.5) H 08/25/18 16:40 INR 2.17 08/25/18 16:40 APTT 31.6 Seconds (25.1-36.5) 08/25/18 16:40 - Constitutional Appears: Well, Non-toxic, No Acute Distress - Head Exam Head Exam: ATRAUMATIC, NORMAL INSPECTION, NORMOCEPHALIC - Eye Exam Eye Exam: EOMI Pupil Exam: PERRL - Respiratory Exam Respiratory Exam: Rhonchi, NORMAL BREATHING PATTERN - Cardiovascular Exam Cardiovascular Exam: REGULAR RHYTHM, RRR - GI/Abdominal Exam GI & Abdominal Exam: Soft, Normal Bowel Sounds - Neurological Exam Neurological Exam: Alert, Awake, CN II-XII Intact - Skin Additional comments: bilateral lower extremity coarse, cracked hardened skin that is discolored Assessment and Plan - Assessment and Plan (Free Text) Assessment: 53 year old male with past medical history of COPD, diabetes mellitus type II, HTN, HLD, systolic CHF with EF of 39%, CAD with stent, lumbar radiculopathy, gout, and questionable HIV presents with shortness of breath on admission after falling at home. Patient was last seen normal 3 days ago. CXR showed cardiomegaly with resolved pulmonary congestion. Echocardiogram from 05/07 showed mild concentric LVH, systolic function moderately impaired, septal hypokinesis, mild MR, moderate TR, mild pulmonary HTN, and aortic root mildly enlarged. Plan: Shortness of Breath likely 2/2 to COPD but cannot rule out COPD exacerbation -CXR consistent with cardiomegaly, patient has noncompliance with BiPAP -BNP [id number] -Echocardiogram shows mild systolic congestive heart failure with EF of 39% from 04/2018 -For suspected COPD, patient should continue duonebs, azithromycin, and methyprednisone -For suspected CHF, patient should continue with coreg, lasix 80 BID cozaar and zestril. Clinically, patient does not have significant lower extremity edema. Over time, lasix dose can be decreased. Patient was ordered Bipap for CHF as well. Leukocytosis -Increase WBC at 11.9 -CXR, UA are both negative. -Likely stress induced due to severe shortness of breath episodes. Severe Agitation 2/2 to schizophrenia vs. doubt uremic encephalopathy -Ammonia level slightly elevated. ALP and total bilirubin are elevated but trending down. -Abdominal ultrasound suggests hepatocellular disease or cirrhosis. -Psychiatry consult for other possible causes of agitation such as schizophrenia. -Geodon PRN for agitation. CAD with stent -EKG: Atrial fibrillation, right bundle branch block, HR of 88 -Troponinx3: 0.06, 0.06, 0.05. Unlikely NC. Elevation likely due to CORAZON -Cardiac catheterization in 12/2017 showed LAD lesion 80% -Continue with aspirin, cored, zestril, cozaar -TSH: 2.41, LDL: 75 -Telemetry -History of use of life vest CORAZON -Patient's creatinine has increased from baseline of 0.8 to 1.2 on this admission -BUN/Cr ratio is more than 20:1 so likely prerenal cause, dehydration from repeated administration of lasix for suspected CHF -Consider IVF Diabetes mellitus type II -Accuchecks -HgbA1c: -Hypoglycemia protocol -HHD with consistent carbohydrate diet -Medium dose sliding scale insulin Hypertension -Continue with coreg, cozaar, and zestril Constipation -Continue with colace and miralax Hyperlipidemia -Lipid panel unremarkable -Continue with lipitor History of HIV -Positive reactivity in 04/2018 for HIV 1, but confirmatory test of HIV 2 was negative. Viral load was not detected -CD4 count at that time was 747. -Hepatitis panel was negative. GI prophylaxis: protonix 40 mg daily DVT prophylaxis: heparin 5000 U Q8 Patient plan discussed with Dr. Santana. <Kavon Santana - Last Filed: 08/28/18 06:35> Objective - Vital Signs/Intake and Output Vital Signs (last 24 hours): Temp Pulse Resp BP Pulse Ox 97.8 F 76 21 134/78 95 08/28/18 06:00 08/28/18 06:00 08/28/18 06:00 08/28/18 06:00 08/28/18 06:00 Intake and Output: 08/27/18 08/28/18 18:59 06:59 Intake Total 960 Output Total 700 Balance 260 - Medications Medications: Current Medications Albuterol/Ipratropium (Duoneb 3 Mg/0.5 Mg (3 Ml) Ud) 3 ml IH [id number] [facility] Last Admin: 08/28/18 01:53 Dose: 3 ml Albuterol/Ipratropium (Duoneb 3 Mg/0.5 Mg (3 Ml) Ud) 3 ml IH Q2H PRN PRN Reason: Shortness of Breath Last Admin: 08/25/18 23:35 Dose: 3 ml Aspirin (Ecotrin) 81 mg PO DAILY [facility] Last Admin: 08/27/18 11:19 Dose: 81 mg Atorvastatin Calcium (Lipitor) 80 mg PO DIN [facility] Last Admin: 08/27/18 18:33 Dose: 80 mg Carvedilol (Coreg) 12.5 mg PO BID [facility] Last Admin: 08/27/18 18:32 Dose: 12.5 mg Docusate Sodium (Colace) 100 mg PO BID [facility] Last Admin: 08/27/18 18:32 Dose: 100 mg Furosemide (Lasix) 80 mg IVP BID [facility] Last Admin: 08/27/18 18:33 Dose: 80 mg Heparin Sodium (Porcine) (Heparin) 5,000 units SC Q8 [facility]; Protocol Last Admin: 08/28/18 06:08 Dose: 5,000 units Azithromycin (Zithromax 500mg In Ns) 500 mg in 250 mls @ 167 mls/hr IVPB DAILY [facility]; Protocol Last Admin: 08/27/18 11:21 Dose: 167 mls/hr Insulin Human Regular (Humulin R Med) 0 units SC ACHS [facility]; Protocol Last Admin: 08/27/18 21:58 Dose: 2 unit Lisinopril (Zestril) 2.5 mg PO DAILY [facility] Last Admin: 08/27/18 11:21 Dose: 2.5 mg Losartan Potassium (Cozaar) 25 mg PO DAILY [facility] Last Admin: 08/27/18 12:48 Dose: 25 mg Methylprednisolone (Solu-Medrol) 40 mg IVP Q12 [facility] Last Admin: 08/27/18 21:34 Dose: 40 mg Pantoprazole Sodium (Protonix Ec Tab) 40 mg PO DAILY [facility] Last Admin: 08/27/18 11:19 Dose: 40 mg Polyethylene Glycol (Miralax) 17 gm PO DAILY [facility] Last Admin: 08/27/18 11:19 Dose: 17 gm Ziprasidone (Geodon Inj) 10 mg IM Q6 PRN; Protocol PRN Reason: Agitation Last Admin: 08/27/18 13:27 Dose: 10 mg - Labs Labs: 08/27/18 07:00 08/27/18 07:00 PT 25.1 SECONDS (9.4-12.5) H 08/25/18 16:40 INR 2.17 08/25/18 16:40 APTT 31.6 Seconds (25.1-36.5) 08/25/18 16:40 Attending/Attestation - Attestation I have personally seen and examined this patient.: Yes I have fully participated in the care of the patient.: Yes I have reviewed all pertinent clinical information, including history, physical exam and plan: Yes Notes (Text): 08/27/18 53 year old male with past medical history of systolic CHF, diabetes, COPD, CAD s/p stents, hypertension and CHARAN with history of noncompliance who presented with complaint of fall at home after falling off the bed. Also reported dyspnea, started on iv steroids and iv lasix for COPD / CHF exacerbation. Cardiology is following. Continue with duonebs. Continue with bipap HS. Lactic acidosis has improved. Metformin is on hold. Follow up on cultures. Abdominal ultrasound showed hepatomegaly and cirrhotic appearing liver. Hepatitis panel was negative. Repeat HIV testing is pending. Overnight events were reviewed; has periods of restlessness and agitation. Ammonia is not significantly elevated; will monitor. Psychiatry evaluation is requested. PT evaluation was appreciated; recommended STEPHANIE. Patient was counselled on medication compliance. Kavon Santana MD Hospitalist.
--- NOTE | 2018-08-27 13:54 | CP.PCM.PN ---
Subjective - Date & Time of Evaluation Date of Evaluation: 08/27/18 Time of Evaluation: 06:40 - Subjective Subjective: Awake, alert, no distress Reason for consultation and follow up: Cardiac evaluation of shortness of breath, exacerbation of chronic systolic congestive heart failure, Seen and examined by me and Dr. Aquino COVERING Dr. Salgado Objective - Vital Signs/Intake and Output Vital Signs (last 24 hours): Temp Pulse Resp BP Pulse Ox 97.1 F L 83 19 126/81 92 L 08/27/18 12:00 08/27/18 12:48 08/27/18 12:00 08/27/18 12:48 08/27/18 06:00 Intake and Output: 08/27/18 08/27/18 06:59 18:59 Intake Total 240 Output Total 200 Balance 40 - Medications Medications: Current Medications Albuterol/Ipratropium (Duoneb 3 Mg/0.5 Mg (3 Ml) Ud) 3 ml IH [id number] [facility] Last Admin: 08/27/18 13:22 Dose: 3 ml Albuterol/Ipratropium (Duoneb 3 Mg/0.5 Mg (3 Ml) Ud) 3 ml IH Q2H PRN PRN Reason: Shortness of Breath Last Admin: 08/25/18 23:35 Dose: 3 ml Aspirin (Ecotrin) 81 mg PO DAILY [facility] Last Admin: 08/27/18 11:19 Dose: 81 mg Atorvastatin Calcium (Lipitor) 80 mg PO DIN [facility] Last Admin: 08/26/18 17:04 Dose: 80 mg Carvedilol (Coreg) 12.5 mg PO BID [facility] Last Admin: 08/27/18 11:19 Dose: 12.5 mg Docusate Sodium (Colace) 100 mg PO BID [facility] Last Admin: 08/27/18 11:18 Dose: 100 mg Furosemide (Lasix) 80 mg IVP BID [facility] Last Admin: 08/27/18 11:20 Dose: 80 mg Heparin Sodium (Porcine) (Heparin) 5,000 units SC Q8 [facility]; Protocol Last Admin: 08/27/18 13:26 Dose: 5,000 units Azithromycin (Zithromax 500mg In Ns) 500 mg in 250 mls @ 167 mls/hr IVPB DAILY [facility]; Protocol Last Admin: 08/27/18 11:21 Dose: 167 mls/hr Insulin Human Regular (Humulin R Med) 0 units SC ACHS [facility]; Protocol Last Admin: 08/27/18 12:47 Dose: 3 unit Lisinopril (Zestril) 2.5 mg PO DAILY [facility] Last Admin: 08/27/18 11:21 Dose: 2.5 mg Losartan Potassium (Cozaar) 25 mg PO DAILY [facility] Last Admin: 08/27/18 12:48 Dose: 25 mg Methylprednisolone (Solu-Medrol) 40 mg IVP Q12 [facility] Last Admin: 08/27/18 11:21 Dose: 40 mg Pantoprazole Sodium (Protonix Ec Tab) 40 mg PO DAILY [facility] Last Admin: 08/27/18 11:19 Dose: 40 mg Polyethylene Glycol (Miralax) 17 gm PO DAILY [facility] Last Admin: 08/27/18 11:19 Dose: 17 gm Ziprasidone (Geodon Inj) 10 mg IM Q6 PRN; Protocol PRN Reason: Agitation Last Admin: 08/27/18 13:27 Dose: 10 mg - Labs Labs: 08/27/18 07:00 08/27/18 07:00 PT 25.1 SECONDS (9.4-12.5) H 08/25/18 16:40 INR 2.17 08/25/18 16:40 APTT 31.6 Seconds (25.1-36.5) 08/25/18 16:40 - Constitutional Appears: Non-toxic, No Acute Distress - Head Exam Head Exam: NORMAL INSPECTION, NORMOCEPHALIC - Eye Exam Eye Exam: Normal appearance Pupil Exam: NORMAL ACCOMODATION - ENT Exam ENT Exam: Mucous Membranes Moist, Normal Exam - Respiratory Exam Respiratory Exam: Decreased Breath Sounds, NORMAL BREATHING PATTERN - Cardiovascular Exam Cardiovascular Exam: +S1, +S2 - GI/Abdominal Exam GI & Abdominal Exam: Soft, Normal Bowel Sounds - Extremities Exam Extremities Exam: Full ROM - Neurological Exam Neurological Exam: Alert, Awake, Oriented x3 - Psychiatric Exam Psychiatric exam: Normal Affect, Normal Mood - Skin Skin Exam: Dry, Normal Color, Warm Assessment and Plan - Assessment and Plan (Free Text) Assessment: A 53 year old male who came to the ER due to shortness of breath and post fall at home. History of coronary artery disease with stents,hypertension, hyperlipidemia,COPD, diabetes,systolic dysfunction CHF,lumbar radiculopat hy,gout. Last Echo 05/07 showed LVEF of 39%. moderate TR, mild pulmonary hypertension. Elevated BNP on admission. Acute on chronic exacerbebation of systolic dysfunction CHF. Plan: Denies shortness of breath Heart rate controlled Blood pressure controlled Refused BIPAP/CPAP Continue to diurese On ASA 81 mg daily, Lipitor 80 mg daily, Coreg 12.5 mg BID Lasix 80 mg IV BID,Lisinopril 2.5 mg daily, Cozaar 25 mg daiyl, Solumedrol 40 mg IV every 12 hours Continue current medications Continue current treatment Control glucose Chart reviewed Will follow up Plan and treatment discussed with Dr. Aquino COVERING for Dr. Salgado
[2018-08-28] MEDS: Albuterol-Ipratrop 3 mg / 0.5 (3 ml) UD IH SCH ×3 (01:53→19:24)
--- NOTE | 2018-08-28 08:07 | CP.PCM.PN ---
Subjective - Date & Time of Evaluation Date of Evaluation: 08/28/18 Time of Evaluation: 06:15 - Subjective Subjective: Lying in bed, no distress,awake, alert, Reason for consultation and follow up: Cardiac evaluation of shortness of breath, exacerbation of chronic systolic congestive heart failure, Seen and examined by me and Dr. Aquino COVERING Dr. Salgado Objective - Vital Signs/Intake and Output Vital Signs (last 24 hours): Temp Pulse Resp BP Pulse Ox 97.8 F 76 21 134/78 95 08/28/18 06:00 08/28/18 06:00 08/28/18 06:00 08/28/18 06:00 08/28/18 06:00 Intake and Output: 08/28/18 08/28/18 06:59 18:59 Intake Total 960 Output Total 700 Balance 260 - Medications Medications: Current Medications Albuterol/Ipratropium (Duoneb 3 Mg/0.5 Mg (3 Ml) Ud) 3 ml IH [id number] [facility] Last Admin: 08/28/18 07:02 Dose: 3 ml Albuterol/Ipratropium (Duoneb 3 Mg/0.5 Mg (3 Ml) Ud) 3 ml IH Q2H PRN PRN Reason: Shortness of Breath Last Admin: 08/25/18 23:35 Dose: 3 ml Aspirin (Ecotrin) 81 mg PO DAILY [facility] Last Admin: 08/27/18 11:19 Dose: 81 mg Atorvastatin Calcium (Lipitor) 80 mg PO DIN [facility] Last Admin: 08/27/18 18:33 Dose: 80 mg Carvedilol (Coreg) 12.5 mg PO BID [facility] Last Admin: 08/27/18 18:32 Dose: 12.5 mg Docusate Sodium (Colace) 100 mg PO BID [facility] Last Admin: 08/27/18 18:32 Dose: 100 mg Furosemide (Lasix) 80 mg IVP BID [facility] Last Admin: 08/27/18 18:33 Dose: 80 mg Heparin Sodium (Porcine) (Heparin) 5,000 units SC Q8 [facility]; Protocol Last Admin: 08/28/18 06:08 Dose: 5,000 units Azithromycin (Zithromax 500mg In Ns) 500 mg in 250 mls @ 167 mls/hr IVPB DAILY [facility]; Protocol Last Admin: 08/27/18 11:21 Dose: 167 mls/hr Insulin Human Regular (Humulin R Med) 0 units SC ACHS [facility]; Protocol Last Admin: 08/27/18 21:58 Dose: 2 unit Lisinopril (Zestril) 2.5 mg PO DAILY [facility] Last Admin: 08/27/18 11:21 Dose: 2.5 mg Losartan Potassium (Cozaar) 25 mg PO DAILY [facility] Last Admin: 08/27/18 12:48 Dose: 25 mg Methylprednisolone (Solu-Medrol) 40 mg IVP Q12 [facility] Last Admin: 08/27/18 21:34 Dose: 40 mg Pantoprazole Sodium (Protonix Ec Tab) 40 mg PO DAILY [facility] Last Admin: 08/27/18 11:19 Dose: 40 mg Polyethylene Glycol (Miralax) 17 gm PO DAILY [facility] Last Admin: 08/27/18 11:19 Dose: 17 gm Ziprasidone (Geodon Inj) 10 mg IM Q6 PRN; Protocol PRN Reason: Agitation Last Admin: 08/27/18 13:27 Dose: 10 mg - Labs Labs: 08/27/18 07:00 08/27/18 07:00 PT 25.1 SECONDS (9.4-12.5) H 08/25/18 16:40 INR 2.17 08/25/18 16:40 APTT 31.6 Seconds (25.1-36.5) 08/25/18 16:40 - Constitutional Appears: Non-toxic, No Acute Distress - Head Exam Head Exam: NORMAL INSPECTION, NORMOCEPHALIC - Eye Exam Eye Exam: Normal appearance Pupil Exam: NORMAL ACCOMODATION - ENT Exam ENT Exam: Mucous Membranes Moist, Normal Exam - Respiratory Exam Respiratory Exam: Decreased Breath Sounds, NORMAL BREATHING PATTERN - Cardiovascular Exam Cardiovascular Exam: REGULAR RHYTHM, +S1, +S2 Additional comments: Telemetry 70-80's NSR - GI/Abdominal Exam GI & Abdominal Exam: Soft, Normal Bowel Sounds - Extremities Exam Extremities Exam: Full ROM Additional comments: 2+edema - Neurological Exam Neurological Exam: Alert, Awake - Psychiatric Exam Psychiatric exam: Normal Affect, Normal Mood - Skin Skin Exam: Dry, Normal Color, Warm Assessment and Plan - Assessment and Plan (Free Text) Assessment: A 53 year old male who came to the ER due to shortness of breath and post fall at home. History of coronary artery disease with stents,hypertension, hyperlipidemia,COPD, diabetes,systolic dysfunction CHF,lumbar radiculopathy,gout. Last Echo 05/07 showed LVEF of 39%. moderate TR, mild pulmonary hypertension. Elevated BNP on admission. Acute on chronic exacerbebation of systolic dysfunction CHF. Used BIPAP/CPAP off and on last night. Plan: Used BIPAP/CPAP last night Denies shortness of breath looks better, no distress Heart rate controlled Blood pressure controlled Continue to diurese On ASA 81 mg daily, Lipitor 80 mg daily, Coreg 12.5 mg BID Lasix 80 mg IV BID,Lisinopril 2.5 mg daily, Cozaar 25 mg daiyl, Solumedrol 40 mg IV every 12 hours Continue current medications Continue current treatment Control glucose Chart reviewed Will follow up Plan and treatment discussed with Dr. Kenia AHUJA for Dr. Salgado
[2018-08-28] MEDS: Insulin Reg-MEDIUM-Coverage SC SCH ×4 (08:22→21:51)
[2018-08-28 08:36] LABS: GRAN # 8.33 (1.4-6.5); GRAN % 80.9 % (50.0-68.0); HEMOGLOBIN 8.6 g/dL (14.0-18.0); LYMPH # 1.6 (1.2-3.4); LYMPH % 15.4 % (22.0-35.0); MEAN CELL VOLUME 74.2 fl (80.0-105.0); MEAN CORPUSCULAR HEMOGLOBIN 21.1 pg (25.0-35.0); MEAN CORPUSCULAR HGB CONC 28.5 g/dl (31.0-37.0); MEAN PLATELET VOLUME 9.6 fl (7.0-11.0); MONO # 0.4 (0.1-0.6); MONO % 3.7 % (1.0-6.0); RBC 4.07 10^6/uL (3.5-6.1); RED CELL DISTRIBUTION WIDTH 19.4 % (11.5-14.5); WHITE BLOOD COUNT 10.3 10^3/uL (4.5-11.0)
[2018-08-28 09:32] LABS: ALB/GLOB RATIO 0.5 (1.1-1.8); ALBUMIN 2.5 g/dL (3.0-4.8); ALT/SGPT 20 U/L (7-56); AST/SGOT 39 U/L (17-59); BLOOD UREA NITROGEN 54 mg/dL (7-21); CALCIUM 7.3 mg/dL (8.4-10.5); GFR NON-AFRICAN AMERICAN > 60
[2018-08-28] MEDS: Azithromycin 500MG/NS 250ml 500 MG/250 ML BAG IVPB SCH (10:34)
[2018-08-28] MEDS: Pantoprazole 40 mg EC Tab PO SCH (10:35)
[2018-08-28] MEDS: POLYETHYLENE GLYCOL 3350 17 GM/Dose PACKET PO SCH (10:36)
[2018-08-28] MEDS: MethylPREDNISolone 40 mg Vial IVP SCH (10:36)
--- NOTE | 2018-08-28 12:51 | CP.PCM.PN ---
<Jr Velazquez - Last Filed: 08/28/18 12:45> Subjective - Date & Time of Evaluation Date of Evaluation: 08/28/18 Time of Evaluation: 12:45 - Subjective Subjective: Jr Velazquez, PGY-1, Internal Medicine Progress Note for Dr. Santana Patient seen and evaluated at bedside. Patient reportedly had 50 seconds of nonsustained SVT with stable vital signs. Patient did not report any change in symptoms from prior examination. Patient was AAOx3 this morning and followed directions appropriately. Patient denied diaphoresis, heart palpitations, headache, shortness of breath, nausea, vomiting, constipation, diarrhea, dysuria, and hematuria. 12-point ROS was negative except for what was mentioned above. Objective - Vital Signs/Intake and Output Vital Signs (last 24 hours): Temp Pulse Resp BP Pulse Ox 97.5 F L 87 18 139/89 95 08/28/18 12:00 08/28/18 12:00 08/28/18 12:00 08/28/18 12:00 08/28/18 06:00 Intake and Output: 08/28/18 08/28/18 06:59 18:59 Intake Total 960 612 Output Total 700 Balance 260 612 - Medications Medications: Current Medications Albuterol/Ipratropium (Duoneb 3 Mg/0.5 Mg (3 Ml) Ud) 3 ml IH [id number] [facility] Last Admin: 08/28/18 07:02 Dose: 3 ml Albuterol/Ipratropium (Duoneb 3 Mg/0.5 Mg (3 Ml) Ud) 3 ml IH Q2H PRN PRN Reason: Shortness of Breath Last Admin: 08/25/18 23:35 Dose: 3 ml Aspirin (Ecotrin) 81 mg PO DAILY [facility] Last Admin: 08/28/18 10:35 Dose: 81 mg Atorvastatin Calcium (Lipitor) 80 mg PO DIN [facility] Last Admin: 08/27/18 18:33 Dose: 80 mg Carvedilol (Coreg) 12.5 mg PO BID [facility] Last Admin: 08/28/18 10:35 Dose: 12.5 mg Docusate Sodium (Colace) 100 mg PO BID [facility] Last Admin: 08/28/18 10:35 Dose: 100 mg Furosemide (Lasix) 40 mg IVP BID [facility] Heparin Sodium (Porcine) (Heparin) 5,000 units SC Q8 [facility]; Protocol Last Admin: 08/28/18 06:08 Dose: 5,000 units Azithromycin (Zithromax 500mg In Ns) 500 mg in 250 mls @ 167 mls/hr IVPB DAILY [facility]; Protocol Last Admin: 08/28/18 10:34 Dose: 167 mls/hr Insulin Human Regular (Humulin R Med) 0 units SC ACHS [facility]; Protocol Last Admin: 08/28/18 12:02 Dose: 8 unit Lisinopril (Zestril) 2.5 mg PO DAILY [facility] Last Admin: 08/28/18 10:35 Dose: 2.5 mg Losartan Potassium (Cozaar) 25 mg PO DAILY [facility] Last Admin: 08/28/18 10:35 Dose: 25 mg Methylprednisolone (Solu-Medrol) 40 mg IVP DAILY [facility] Pantoprazole Sodium (Protonix Ec Tab) 40 mg PO DAILY [facility] Last Admin: 08/28/18 10:35 Dose: 40 mg Polyethylene Glycol (Miralax) 17 gm PO DAILY [facility] Last Admin: 08/28/18 10:36 Dose: 17 gm Ziprasidone (Geodon Inj) 10 mg IM Q6 PRN; Protocol PRN Reason: Agitation Last Admin: 08/27/18 13:27 Dose: 10 mg - Labs Labs: 08/28/18 08:32 08/28/18 08:32 PT 25.1 SECONDS (9.4-12.5) H 08/25/18 16:40 INR 2.17 08/25/18 16:40 APTT 31.6 Seconds (25.1-36.5) 08/25/18 16:40 - Constitutional Appears: Well, Non-toxic, No Acute Distress - Head Exam Head Exam: ATRAUMATIC, NORMAL INSPECTION, NORMOCEPHALIC - Eye Exam Eye Exam: EOMI Pupil Exam: PERRL - Respiratory Exam Respiratory Exam: Clear to Ausculation Bilateral, NORMAL BREATHING PATTERN - Cardiovascular Exam Cardiovascular Exam: REGULAR RHYTHM - GI/Abdominal Exam GI & Abdominal Exam: Soft, Normal Bowel Sounds - Extremities Exam Extremities Exam: Full ROM - Neurological Exam Neurological Exam: Alert, Awake, CN II-XII Intact, Oriented x3 Neuro motor strength exam: Left Upper Extremity: 5, Right Upper Extremity: 5, Left Lower Extremity: 5, Right Lower Extremity: 5 Assessment and Plan - Assessment and Plan (Free Text) Assessment: 53 year old male with past medical history of COPD, diabetes mellitus type II, HTN, HLD, systolic CHF with EF of 39%, CAD with stent, lumbar radiculopathy, gout, and questionable HIV presents with shortness of breath on admission after falling at home. Patient was last seen normal 3 days ago. CXR showed cardiomegaly with resolved pulmonary congestion. Echocardiogram from 05/07 showed mild concentric LVH, systolic function moderately impaired, septal hypokinesis, mild MR, moderate TR, mild pulmonary HTN, and aortic root mildly enlarged. Plan: Shortness of Breath likely 2/2 to COPD but cannot rule out COPD exacerbation -CXR consistent with cardiomegaly, patient has noncompliance with BiPAP -BNP 01128 -Echocardiogram shows mild systolic congestive heart failure with EF of 39% from 04/2018 -For suspected COPD, patient should continue duonebs, azithromycin, and methyprednisone. Methylprednisone dose was reduced to 40 mg daily due to increasing glucose level. -For suspected CHF, patient should continue with coreg. Clinically, patient does not have significant lower extremity edema. Over time, lasix dose was decreased to 40 mg BID. Patient was ordered Bipap for CHF as well. Leukocytosis-resolved -WBC: 10.9 -CXR, UA are both negative. -Likely stress induced due to severe shortness of breath episodes. Severe Agitation 2/2 to schizophrenia vs. doubt uremic encephalopathy vs. alcohol withdrawal -Ammonia level down to 38 from 39 yesterday. ALP is elevated but trending down. Bilirubin level is now normal. -Abdominal ultrasound suggests hepatocellular disease or cirrhosis. -Psychiatry consult for other possible causes of agitation such as schizophrenia. CAD with stent -EKG: Atrial fibrillation, right bundle branch block, HR of 88 -Troponinx3: 0.06, 0.06, 0.05. Unlikely MO. Elevation likely due to CORAZON -Cardiac catheterization in 12/2017 showed LAD lesion 80% -Continue with aspirin, cored, zestril, cozaar -TSH: 2.41, LDL: 75 -Telemetry -History of use of life vest CORAZON -Patient's creatinine has increased from baseline of 0.8 to 1.2 on this admission. Creatinine down to 1.1 today. -BUN/Cr ratio is more than 20:1 so likely prerenal cause, dehydration from rep eated administration of lasix for suspected CHF -Consider IVF Diabetes mellitus type II -Random glucose 352 -Accuchecks -HgbA1c: 6.9 -Hypoglycemia protocol -HHD with consistent carbohydrate diet -Medium dose sliding scale insulin -Methylprednisone dose has been decreased. Follow up blood glucose level with decreased methylprednisone. Obstructive Sleep Apnea -Continue with CPAP/BiPap at night Hypertension -Continue with coreg, cozaar, and zestril Constipation -Continue with colace and miralax Hyperlipidemia -Lipid panel unremarkable -Continue with lipitor History of HIV -Positive reactivity in 04/2018 for HIV 1, but HIV 2 was negative. Viral load was not detected -CD4 count at that time was 727. -Hepatitis panel was negative. GI prophylaxis: protonix 40 mg daily DVT prophylaxis: heparin 5000 U Q8 Patient plan discussed with Dr. Santana. <Kavon Santana - Last Filed: 08/28/18 13:39> Objective - Vital Signs/Intake and Output Vital Signs (last 24 hours): Temp Pulse Resp BP Pulse Ox 97.5 F L 87 18 139/89 95 08/28/18 12:00 08/28/18 12:00 08/28/18 12:00 08/28/18 12:00 08/28/18 06:00 Intake and Output: 08/28/18 08/28/18 06:59 18:59 Intake Total 960 612 Output Total 700 Balance 260 612 - Medications Medications: Current Medications Albuterol/Ipratropium (Duoneb 3 Mg/0.5 Mg (3 Ml) Ud) 3 ml IH [id number] [facility] Last Admin: 08/28/18 07:02 Dose: 3 ml Albuterol/Ipratropium (Duoneb 3 Mg/0.5 Mg (3 Ml) Ud) 3 ml IH Q2H PRN PRN Reason: Shortness of Breath Last Admin: 08/25/18 23:35 Dose: 3 ml Aspirin (Ecotrin) 81 mg PO DAILY [facility] Last Admin: 08/28/18 10:35 Dose: 81 mg Atorvastatin Calcium (Lipitor) 80 mg PO DIN [facility] Last Admin: 08/27/18 18:33 Dose: 80 mg Carvedilol (Coreg) 12.5 mg PO BID [facility] Last Admin: 08/28/18 10:35 Dose: 12.5 mg Docusate Sodium (Colace) 100 mg PO BID [facility] Last Admin: 08/28/18 10:35 Dose: 100 mg Furosemide (Lasix) 40 mg IVP BID [facility] Heparin Sodium (Porcine) (Heparin) 5,000 units SC Q8 [facility]; Protocol Last Admin: 08/28/18 13:22 Dose: 5,000 units Azithromycin (Zithromax 500mg In Ns) 500 mg in 250 mls @ 167 mls/hr IVPB DAILY [facility]; Protocol Last Admin: 08/28/18 10:34 Dose: 167 mls/hr Insulin Human Regular (Humulin R Med) 0 units SC ACHS [facility]; Protocol Last Admin: 08/28/18 12:02 Dose: 8 unit Lisinopril (Zestril) 2.5 mg PO DAILY [facility] Last Admin: 08/28/18 10:35 Dose: 2.5 mg Losartan Potassium (Cozaar) 25 mg PO DAILY [facility] Last Admin: 08/28/18 10:35 Dose: 25 mg Methylprednisolone (Solu-Medrol) 40 mg IVP DAILY [facility] Pantoprazole Sodium (Protonix Ec Tab) 40 mg PO DAILY [facility] Last Admin: 08/28/18 10:35 Dose: 40 mg Polyethylene Glycol (Miralax) 17 gm PO DAILY [facility] Last Admin: 08/28/18 10:36 Dose: 17 gm - Labs Labs: 08/28/18 08:32 08/28/18 08:32 PT 25.1 SECONDS (9.4-12.5) H 08/25/18 16:40 INR 2.17 08/25/18 16:40 APTT 31.6 Seconds (25.1-36.5) 08/25/18 16:40 Attending/Attestation - Attestation I have personally seen and examined this patient.: Yes I have fully participated in the care of the patient.: Yes I have reviewed all pertinent clinical information, including history, physical exam and plan: Yes Notes (Text): 08/28/18 13:36 53 year old male with past medical history of systolic CHF, diabetes, COPD, CAD s/p stents, hypertension and CHARAN with history of noncompliance who presented with complaint of fall at home after falling off the bed. Also reported dyspnea, started on duonebs, iv steroids and iv lasix for COPD / CHF exacerbation. Cardiology is following. His symptoms are improving so we will begin to taper his lasix and steroids. Continue with bipap HS. Lactic acidosis has improved. Metformin is on hold. He is on insulin ss. Follow up on cultures. Abdominal ultrasound showed hepatomegaly and cirrhotic appearing liver. Hepatitis panel was negative. Repeat HIV testing is pending, although HIV RNA qnt PCR came back positive. Will request for ID evaluation. Overnight events were reviewed; again has periods of restlessness and agitation although he is more cooperative during the day. CT head was negative for acute findings. Ammonia is not significantly elevated; will monitor. Psychiatry evaluation was requested. PT evaluation was appreciated; recommended STEPHANIE. Patient was counselled on medication compliance. Kavon Santana MD Hospitalist.
[2018-08-28] MEDS ORDERED: Potassium Chloride 20 mEq ER Tab PO ONE (16:04)
--- NOTE | 2018-08-28 17:12 | CON ---
DATE OF CONSULTATION: 08/28/2018 HISTORY OF PRESENT ILLNESS: The patient is a 53-year-old -[place] male with no formal psychiatric history, who has been consulted by Psychiatry on 05/12/2018 and 05/24/2018 for possible depression and refusal of labs and treatment. Dr. Gilmore met with the patient during those times and determined the patient was not depressed, was not a danger to himself, and had only refused labs and treatment because they were not, in his opinion, explained thoroughly enough to him by his medical treatment team. Both times Dr. Gilmore saw him. For this consultation, Psychiatry was again requested to see the patient because he had been agitated, pulling at the line, difficult to redirect last night, though he does appear to be acutely improved regarding his orientation and behavior control. When I met with him at bedside, he was alert and oriented to location, year, month, and circumstances. He denies having any psychiatric issues including depression, hallucinations, paranoia that others are trying to harm him, and presents really coherent and consistent with his responses. He does not recall his somewhat disruptive behavior from the day prior, which is consistent with the delirium presentation. In general, the patient still does not want any psychiatric involvement. He defers on any further psychiatric intervention. The patient indicates that he is aware that nurses are here to help him and he plans to cooperate with the treatment team's recommendations, though would like more attention by the treatment team in explaining the process and current medical issues. He is not responding to internal stimuli and has not been noted to be talking to himself in that regard or demonstrating any bizarre behavior, though affect was constricted and mildly annoyed and loose during my visit with him this morning. Insight and judgment were considered to be fair, although this could be a lucid phase of the entire process now. Vital signs and labs were reviewed. Relevant psychiatric medications include Geodon 10 mg IM every 6 hours, but he received one dose at 1:27 a.m. during the period of acute agitation in which he was trying to climb out of bed and screaming and pulling lines and demanding to be discharged. PSYCHIATRIC HISTORY: The patient does not have any formal psychiatric history. He has never been psychiatrically admitted. He denies taking any psychiatric medications. He denies any history of suicide attempts or psychiatric outpatient followup. The patient has been seen by Dr. Gilmore on 05/12/2018 and 05/24/[address] Gilmore signed off, which this provider will be doing as well. IMPRESSION: Delirium. Currently, the patient is lucid. I cannot rule out recurrence of a disorganized behavior, again associated with sundowning. However, at this time, the patient is improved when compared to staff notes from last night. Rule out adjustment disorder with anxiety. RECOMMENDATIONS: At this time, Psychiatry is meeting with the patient and he appears to be suffering from delirium. Apparently, psychotic disorder has not been checked as it has already been checked by Dr. Gilmore during the two consultations on 05/12/2018 and 05/24/2018. Though medical team has been spending time with the patient and explaining his current condition and reasoning for various interventions recommended, the patient appears to need a little bit extra attention by the medical team, which I think would be very beneficial for the patient's peace of mind as well as decreasing the disruptions to alert the patient and nursing staff. Please note that delirium may take a few weeks to completely resolve, though the patient is acutely improved this morning. There is no psychiatric indication for continued followup. Please re-consult if there are any acute changes to the patient's presentation. Please also note that the patient defers on any further psychiatric management. I will respect the patient's wishes and sign off today. Yevgeniy Burris MD
--- NOTE | 2018-08-28 20:40 | CON ---
DATE: 08/28/2018 The patient is in bed and in no acute distress in room 263. CHIEF COMPLAINT: Shortness of breath. HISTORY OF PRESENT ILLNESS: This is a 53-year-old male with positive obesity, BMI of 34, hypertension, diabetes, sleep apnea, congestive heart failure, hyperlipidemia, chronic obstructive lung disease, and hip surgery. He was admitted with diagnosis of acute systolic congestive heart failure on top of chronic congestive heart failure and HIV test was done because of his age and is reported to be positive HIV PCR at 3.3 and and Infectious Disease consultation requested. The patient denies any history of HIV and he says he has never been told he is HIV positive. He has never used drugs intravenously and he just had shortness of breath, hypertension and diabetes. No fevers. No chills. REVIEW OF SYSTEMS: A 14-point review of systems performed. PAST MEDICAL HISTORY: Significant for hypertension, diabetes, sleep apnea, obesity with BMI of 34, congestive heart failure, chronic obstructive lung disease, and hyperlipidemia. PAST SURGICAL SURGERY: Significant for a hip surgery. ALLERGIES: THE PATIENT HAS NO KNOWN ALLERGIES. MEDICATIONS: At home includes; the patient to be on Protonix, lisinopril, Coreg, aspirin, clonidine, glipizide, Lasix,and Lipitor. PHYSICAL EXAMINATION: GENERAL: He is in bed, appearing weak. VITAL SIGNS: Temperature of 97, blood pressure 130/80, respiratory rate of 18, and heart rate of 78. HEENT: Unremarkable. NECK: Supple. LUNGS: Decreased breath sounds. HEART: Normal S1 and S2. ABDOMEN: Soft and nontender. No rebound. No guarding. LABORATORY DATA: Reveals that the patient has white count is 10,000, hemoglobin of 8, MCV is 74, and platelets 190. LFTs revealed alkaline phosphatase is elevated at 204 and procalcitonin is normal. Urinalysis is noted and HIV RNA positive at 3.3 and microbiology as the blood cultures have no growth. Urine culture is mixed organisms and the patient had imaging which showed a CAT scan of head which was negative. Chest x-ray, no active lung disease. ASSESSMENT: A 53-year-old male with hypertension, diabetes, sleep apnea, and now with SIRS (systemic inflammatory response syndrome) with acute systolic congestive heart failure on top of chronic congestive heart failure and found to have positive human immunodeficiency virus by PCR, we will check on T-cells and will make further recommendations. The patient is not aware of any human immunodeficiency virus diagnosis in the past and he denies ever being diagnosed with human immunodeficiency virus in the past. We will check ordered a 4th generation test. I will make further recommendations. The patient is on Zithromax with a negative chest x-ray for his chronic obstructive pulmonary disease because of his erythremia, although his QTC is not prolonged, we will discontinue Zithromax at this time. Overall prognosis is quite poor for this patient with cardiac disease. Harris Todd MD
[2018-08-29] MEDS: Albuterol-Ipratrop 3 mg / 0.5 (3 ml) UD IH SCH ×4 (02:05→20:20)
[2018-08-29 06:28] LABS: BASO # 0.01 K/mm3 (0.0-2.0); BASO % 0.1 % (0.0-3.0); EOS % 0.1 % (1.5-5.0); GRAN # 8.03 (1.4-6.5); GRAN % 72.4 % (50.0-68.0); HEMOGLOBIN 7.2 g/dL (14.0-18.0); LYMPH % 17.6 % (22.0-35.0); MEAN CELL VOLUME 72.1 fl (80.0-105.0); MEAN CORPUSCULAR HEMOGLOBIN 21.1 pg (25.0-35.0); MEAN CORPUSCULAR HGB CONC 29.3 g/dl (31.0-37.0); MEAN PLATELET VOLUME 9.5 fl (7.0-11.0); MONO # 1.1 (0.1-0.6); MONO % 9.8 % (1.0-6.0); RBC 3.41 10^6/uL (3.5-6.1); RED CELL DISTRIBUTION WIDTH 19.3 % (11.5-14.5); WHITE BLOOD COUNT 11.1 10^3/uL (4.5-11.0)
[2018-08-29 06:58] LABS: ALB/GLOB RATIO 0.6 (1.1-1.8); ALBUMIN 2.4 g/dL (3.0-4.8); ALT/SGPT 25 U/L (7-56); AST/SGOT 44 U/L (17-59); BLOOD UREA NITROGEN 60 mg/dL (7-21); CALCIUM 7.4 mg/dL (8.4-10.5); GFR NON-AFRICAN AMERICAN > 60
--- NOTE | 2018-08-29 08:41 | PN ---
DATE: 08/28/2018 The patient is seen in room 263, bed 1. This progress note is being dictated on behalf of Dr. Salgado whom I am covering. The patient has known case of CHF due to systolic dysfunction, hypertension, hyperlipidemia, COPD, diabetes mellitus, brought to emergency room, was found to have exacerbation of CHF. Last echo done on May 07, showed LVEF of 39%, moderate AR, mild pulmonary hypertension. The patient now continue to improve concern. The patient is able to lay flat in position. Denies chest pain or palpitation. The patient is continuing with the present therapy and we are going to repeat chest x-ray tomorrow morning to see improvement of CHF and from tomorrow Dr Salgado will follow the patient. Sonu Aquino MD
[2018-08-29] MEDS: MethylPREDNISolone 40 mg Vial IVP SCH (09:46)
[2018-08-29] MEDS: Pantoprazole 40 mg EC Tab PO SCH (09:48)
[2018-08-29] MEDS: Insulin Reg-MEDIUM-Coverage SC SCH ×4 (09:48→21:49)
[2018-08-29] MEDS: POLYETHYLENE GLYCOL 3350 17 GM/Dose PACKET PO SCH (09:49)
--- NOTE | 2018-08-29 11:08 | RAD ---
Date of service: 08/29/2018 HISTORY: CHF to See Improvement. COMPARISON: Comparison is made with 08/25/2018 TECHNIQUE: Chest PA and lateral FINDINGS: LUNGS: Mild to moderate pulmonary vascular congestion is again noted. PLEURA: Blunting of the right costophrenic angle is again noted likely due to small pleural effusion CARDIOVASCULAR: No aortic atherosclerotic calcification present. The heart is enlarged no pulmonary vascular congestion. OSSEOUS STRUCTURES: No significant abnormalities. VISUALIZED UPPER ABDOMEN: Normal. OTHER FINDINGS: None. IMPRESSION: Cardiomegaly pulmonary vascular congestion and small right pleural effusion consistent with CHF. Endings mildly improved compared to the previous exam.
[2018-08-29 13:10] LABS: HEMOGLOBIN 7.5 g/dL (14.0-18.0); MEAN CELL VOLUME 72.5 fl (80.0-105.0); MEAN CORPUSCULAR HEMOGLOBIN 21.1 pg (25.0-35.0); MEAN CORPUSCULAR HGB CONC 29.1 g/dl (31.0-37.0); MEAN PLATELET VOLUME 8.9 fl (7.0-11.0); RBC 3.56 10^6/uL (3.5-6.1); RED CELL DISTRIBUTION WIDTH 19.5 % (11.5-14.5); WHITE BLOOD COUNT 8.4 10^3/uL (4.5-11.0)
--- NOTE | 2018-08-29 14:47 | CP.PCM.PN ---
<Elie Herr - Last Filed: 08/29/18 16:27> Subjective - Date & Time of Evaluation Date of Evaluation: 08/29/18 Time of Evaluation: 08:00 - Subjective Subjective: Elie Herr PGY-1 Progress Note for Hospitalist Service Patient seen and evaluated at bedside. No acute events reported overnight. Patient was off nasal cannula and respirating without difficulty. Patient denies nausea, vomiting, chest pain, leg pain, abdominal pain, cough. Objective - Vital Signs/Intake and Output Vital Signs (last 24 hours): Temp Pulse Resp BP Pulse Ox 97.9 F 77 20 111/65 95 08/29/18 06:00 08/29/18 09:48 08/29/18 06:00 08/29/18 09:47 08/28/18 06:00 Intake and Output: 08/29/18 08/29/18 06:59 18:59 Intake Total 720 Balance 720 - Medications Medications: Current Medications Albuterol/Ipratropium (Duoneb 3 Mg/0.5 Mg (3 Ml) Ud) 3 ml IH [id number] [facility] Last Admin: 08/29/18 13:10 Dose: 3 ml Albuterol/Ipratropium (Duoneb 3 Mg/0.5 Mg (3 Ml) Ud) 3 ml IH Q2H PRN PRN Reason: Shortness of Breath Last Admin: 08/25/18 23:35 Dose: 3 ml Aspirin (Ecotrin) 81 mg PO DAILY [facility] Last Admin: 08/29/18 09:47 Dose: 81 mg Atorvastatin Calcium (Lipitor) 80 mg PO DIN [facility] Last Admin: 08/28/18 16:58 Dose: 80 mg Carvedilol (Coreg) 12.5 mg PO BID [facility] Last Admin: 08/29/18 13:45 Dose: 12.5 mg Docusate Sodium (Colace) 100 mg PO BID [facility] Last Admin: 08/29/18 09:47 Dose: 100 mg Furosemide (Lasix) 40 mg IVP DAILY [facility] Glipizide (Glucotrol) 5 mg PO ACB [facility] Last Admin: 08/29/18 13:45 Dose: 5 mg Heparin Sodium (Porcine) (Heparin) 5,000 units SC Q8 [facility]; Protocol Last Admin: 08/29/18 13:46 Dose: 5,000 units Insulin Human Regular (Humulin R Med) 0 units SC ACHS [facility]; Protocol Last Admin: 08/29/18 12:15 Dose: 7 unit Losartan Potassium (Cozaar) 25 mg PO DAILY [facility] Last Admin: 08/29/18 09:48 Dose: 25 mg Methylprednisolone (Solu-Medrol) 40 mg IVP DAILY [facility] Last Admin: 08/29/18 09:46 Dose: 40 mg Pantoprazole Sodium (Protonix Ec Tab) 40 mg PO DAILY [facility] Last Admin: 08/29/18 09:48 Dose: 40 mg Polyethylene Glycol (Miralax) 17 gm PO DAILY [facility] Last Admin: 08/29/18 09:49 Dose: 17 gm - Labs Labs: 08/29/18 13:00 08/29/18 06:00 PT 25.1 SECONDS (9.4-12.5) H 08/25/18 16:40 INR 2.17 08/25/18 16:40 APTT 31.6 Seconds (25.1-36.5) 08/25/18 16:40 - Additional Findings Additional findings: - Constitutional Appears: Well, Non-toxic, No Acute Distress - Head Exam Head Exam: ATRAUMATIC, NORMAL INSPECTION, NORMOCEPHALIC - Eye Exam Eye Exam: EOMI Pupil Exam: PERRL - Respiratory Exam Respiratory Exam: Clear to Ausculation Bilateral, NORMAL BREATHING PATTERN - Cardiovascular Exam Cardiovascular Exam: REGULAR RHYTHM - GI/Abdominal Exam GI & Abdominal Exam: Soft, Normal Bowel Sounds - Extremities Exam Extremities Exam: Full ROM. Chronic vascular epidermal changes to both LEs below knee - Neurological Exam Neurological Exam: Alert, Awake, CN II-XII Intact, Oriented x3 Assessment and Plan - Assessment and Plan (Free Text) Assessment: 53 year old male with past medical history of COPD, diabetes mellitus type II, HTN, HLD, systolic CHF with EF of 39%, CAD with stent, lumbar radiculopathy, gout, and questionable HIV presents with shortness of breath on admission after falling at home. CXR showed cardiomegaly with resolved pulmonary congestion. Echocardiogram from 05/07 showed mild concentric LVH, systolic function moderately impaired, septal hypokinesis, mild MR, moderate TR, mild pulmonary HTN, and aortic root mildly enlarged. Plan: Shortness of Breath likely 2/2 to COPD but cannot rule out COPD exacerbation -CXR consistent with cardiomegaly, patient has noncompliance with BiPAP -BNP 35916 -Echocardiogram shows mild systolic congestive heart failure with EF of 39% from 04/2018 -For suspected COPD, patient should continue duonebs, azithromycin, and methylprednisolone. Methylprednisolone dose was reduced to 40 mg daily due to increasing glucose level. -For suspected CHF, patient should continue with coreg. Clinically, patient does not have significant lower extremity edema. Patient was ordered Bipap for CHF as well. - f/u cardio consult- Dr. Salgado - Lasix changed to 40 mg IV and f/u FOBT Leukocytosis-resolved -WBC: 8.4 -CXR, UA are both negative. -Likely stress induced due to severe shortness of breath episodes. Severe Agitation 2/2 to schizophrenia vs. doubt uremic encephalopathy vs. alcohol withdrawal -Ammonia level down to 38 from 39. ALP is elevated but trending down. Bilirubin level is now normal. -Abdominal ultrasound suggests hepatocellular disease or cirrhosis. -Psychiatry consult for other possible causes of agitation such as schizophrenia. CAD with stent -EKG: Atrial fibrillation, right bundle branch block, HR of 88 -Troponinx3: 0.06, 0.06, 0.05. Unlikely MT. Elevation likely due to CORAZON -Cardiac catheterization in 12/2017 showed LAD lesion 80% -Continue with aspirin, cored, zestril, cozaar -TSH: 2.41, LDL: 75 -Telemetry -History of use of life vest CORAZON -Patient's creatinine has increased from baseline of 0.8 to 1.2 on this admission. Creatinine down to 1.0 today. -BUN/Cr ratio is more than 20:1 so likely prerenal cause, dehydration from repeated administration of lasix for suspected CHF Diabetes mellitus type II -Random glucose 264 -Accuchecks -HgbA1c: 6.9 -Hypoglycemia protocol -HHD with consistent carbohydrate diet -Medium dose sliding scale insulin -Methylprednisone dose has been decreased. Follow up blood glucose level with decreased methylprednisone. Obstructive Sleep Apnea -Continue with CPAP/BiPap at night Hypertension -Continue with coreg, cozaar, and zestril Constipation -Continue with colace and miralax Hyperlipidemia -Lipid panel unremarkable -Continue with lipitor History of HIV -Positive reactivity in 04/2018 for HIV 1, but HIV 2 was negative. Viral load was not detected -CD4 count at that time was 727. -Hepatitis panel was negative. GI prophylaxis: protonix 40 mg daily DVT prophylaxis: heparin 5000 U Q8 Patient see, case discussed, and plan approved by Dr. Danielle. Elie Herr, PGY-1 <Sonu Danielle - Last Filed: 09/04/18 13:55> Objective - Vital Signs/Intake and Output Vital Signs (last 24 hours): Temp Pulse Resp BP Pulse Ox 99.1 F 86 13 139/77 97 09/04/18 12:00 09/04/18 10:00 09/03/18 22:00 09/04/18 11:54 09/03/18 22:00 - Medications Medications: Current Medications Albumin Human (Albumin Human 25% (12.5 Gm/50 Ml)) 12.5 gm IV Q4H [facility] Last Admin: 09/04/18 11:45 Dose: 12.5 gm Albuterol/Ipratropium (Duoneb 3 Mg/0.5 Mg (3 Ml) Ud) 3 ml IH [id number] [facility] Last Admin: 09/04/18 13:44 Dose: 3 ml Albuterol/Ipratropium (Duoneb 3 Mg/0.5 Mg (3 Ml) Ud) 3 ml IH Q2H PRN PRN Reason: Shortness of Breath Last Admin: 08/25/18 23:35 Dose: 3 ml Atorvastatin Calcium (Lipitor) 80 mg PO DIN [facility] Last Admin: 09/03/18 19:20 Dose: Not Given Carvedilol (Coreg) 12.5 mg PO BID [facility] Last Admin: 08/30/18 11:14 Dose: 12.5 mg Docusate Sodium (Colace) 100 mg PO BID [facility] Last Admin: 09/04/18 11:37 Dose: Not Given Doxycycline Hyclate (Doryx) 100 mg PO Q12 [facility]; Protocol Stop: 09/06/18 10:01 Last Admin: 09/04/18 09:23 Dose: 100 mg Furosemide (Lasix) 40 mg PO DAILY [facility] Glipizide (Glucotrol) 5 mg PO ACB [facility] Last Admin: 08/31/18 07:45 Dose: Not Given Cefepime HCl (Maxipime 1gm) 1 gm in 100 mls @ 100 mls/hr IVPB Q8 [facility]; Protocol Stop: 09/10/18 14:01 Last Admin: 09/04/18 06:25 Dose: 100 mls/hr Insulin Human Lispro (Humalog High) 0 units SC Q6 [facility]; Protocol Last Admin: 09/04/18 11:50 Dose: Not Given Lactulose (Enulose) 20 gm PO TID [facility] Last Admin: 09/01/18 17:03 Dose: 20 gm Losartan Potassium (Cozaar) 25 mg PO DAILY [facility] Last Admin: 08/30/18 11:14 Dose: 25 mg Pantoprazole Sodium (Protonix Inj) 40 mg IVP Q12 [facility] Rifaximin (Xifaxan) 550 mg PO BID [facility]; Protocol Last Admin: 09/04/18 09:23 Dose: 550 mg - Labs Labs: 09/04/18 12:30 09/04/18 12:30 PT 15.5 SECONDS (9.4-12.5) H 09/03/18 08:30 INR 1.34 09/03/18 08:30 APTT 29.6 Seconds (25.1-36.5) 09/03/18 08:30 Attending/Attestation - Attestation I have personally seen and examined this patient.: Yes I have fully participated in the care of the patient.: Yes I have reviewed all pertinent clinical information, including history, physical exam and plan: Yes Notes (Text): 09/04/18 13:55 1. 53 year old male with past medical history of systolic CHF, diabetes, COPD, CAD s/p stents, hypertension and CHARAN with history of noncompliance who presented with complaint of fall at home after falling off the bed. Also reported dyspnea, started on duonebs, iv steroids and iv lasix for COPD / CHF exacerbation. Cardiology is following. Chest X rays today still showed pulmonary congestion and right sided effusion, continue IV lasix Lactic acidosis has improved. Metformin is on hold. He is on insulin ss. Follow up on cultures. Abdominal ultrasound showed hepatomegaly and cirrhotic appearing liver. Hepatitis panel was negative. Patient also had HIV positive,ID is following.. Overnight events were reviewed; again has periods of restlessness and agitation although he is more cooperative during the day. CT head was negative for acute findings. Ammonia is not significantly elevated; will monitor. Psychiatry evaluation was requested. Patient has NSVT ,Echo is pending, likely to hypoxia as patient was not using BIPAP at night time.
--- NOTE | 2018-08-29 18:43 | PN ---
DATE: 08/29/2018 SUBJECTIVE: The patient's shortness of breath improved. Denies chest pain. PHYSICAL EXAMINATION: VITAL SIGNS: Blood pressure 111/65, heart rate 77, temperature 97.9, and respirations 20. HEENT: Pale conjunctivae. CHEST: Absent breath sounds over the bases. HEART: S1 and S2 regular. EXTREMITIES: 1+ pitting edema. LABORATORY DATA: Hemoglobin and hematocrit is 7.5 and 25.8, which is significant drop from the admitting hemoglobin and hematocrit, which were 11.9 and 39 respectively. Today's white count and platelet counts are within normal limit. SMA-7 today sodium 143, potassium 3.6, chloride 100, CO2 _, glucose 281, BUN 60, and creatinine 1. Today's chest x-ray revealed cardiomegaly and mild _ CHF with right lower lobe infiltrate. ASSESSMENT: 1. Bi- ventricular failure. 2. Worsening anemia. 3. Liver cirrhosis. 4. Prerenal azotemia. 5. Status post fall. 6. Uncontrolled diabetes mellitus. 7. Sleep apnea. RECOMMENDATIONS: Continue Coreg 12.5 mg twice a day, Cozaar 25 mg once a day, aspirin 81 mg once a day, D/C subcutaneous heparin 5000 units every 8 hours, change Lasix to 40 mg intravenously twice a day, continue Lipitor 80 mg once a day, discontinue Zestril . continue Solu-Medrol 40 mg daily. Beny Salgado MD MTDD
--- NOTE | 2018-08-29 20:08 | CP.PCM.PN ---
Subjective - Date & Time of Evaluation Date of Evaluation: 08/29/18 Time of Evaluation: 11:50 - Subjective Subjective: No nausea, no fevers, not in distress at rest. Objective - Vital Signs/Intake and Output Vital Signs (last 24 hours): Temp Pulse Resp BP Pulse Ox 97.5 F L 87 18 134/78 95 08/28/18 12:00 08/28/18 14:00 08/28/18 12:00 08/28/18 17:00 08/28/18 06:00 Intake and Output: 08/28/18 08/29/18 18:59 06:59 Intake Total 1938 Output Total 1225 Balance 713 - Medications Medications: Current Medications Albuterol/Ipratropium (Duoneb 3 Mg/0.5 Mg (3 Ml) Ud) 3 ml IH [id number] [facility] Last Admin: 08/28/18 19:24 Dose: 3 ml Albuterol/Ipratropium (Duoneb 3 Mg/0.5 Mg (3 Ml) Ud) 3 ml IH Q2H PRN PRN Reason: Shortness of Breath Last Admin: 08/25/18 23:35 Dose: 3 ml Aspirin (Ecotrin) 81 mg PO DAILY [facility] Last Admin: 08/28/18 10:35 Dose: 81 mg Atorvastatin Calcium (Lipitor) 80 mg PO DIN [facility] Last Admin: 08/28/18 16:58 Dose: 80 mg Carvedilol (Coreg) 12.5 mg PO BID [facility] Last Admin: 08/28/18 17:01 Dose: 12.5 mg Docusate Sodium (Colace) 100 mg PO BID [facility] Last Admin: 08/28/18 17:00 Dose: 100 mg Furosemide (Lasix) 40 mg IVP BID [facility] Last Admin: 08/28/18 17:00 Dose: 40 mg Heparin Sodium (Porcine) (Heparin) 5,000 units SC Q8 [facility]; Protocol Last Admin: 08/28/18 13:22 Dose: 5,000 units Insulin Human Regular (Humulin R Med) 0 units SC ACHS [facility]; Protocol Last Admin: 08/28/18 16:57 Dose: 7 unit Lisinopril (Zestril) 2.5 mg PO DAILY [facility] Last Admin: 08/28/18 10:35 Dose: 2.5 mg Losartan Potassium (Cozaar) 25 mg PO DAILY [facility] Last Admin: 08/28/18 10:35 Dose: 25 mg Methylprednisolone (Solu-Medrol) 40 mg IVP DAILY [facility] Pantoprazole Sodium (Protonix Ec Tab) 40 mg PO DAILY [facility] Last Admin: 08/28/18 10:35 Dose: 40 mg Polyethylene Glycol (Miralax) 17 gm PO DAILY [facility] Last Admin: 08/28/18 10:36 Dose: 17 gm - Labs Labs: 08/28/18 08:32 08/28/18 08:32 PT 25.1 SECONDS (9.4-12.5) H 08/25/18 16:40 INR 2.17 08/25/18 16:40 APTT 31.6 Seconds (25.1-36.5) 08/25/18 16:40 - Constitutional Appears: Chronically Ill - Head Exam Head Exam: NORMAL INSPECTION - Respiratory Exam Respiratory Exam: Decreased Breath Sounds - Cardiovascular Exam Cardiovascular Exam: +S1, +S2 - GI/Abdominal Exam GI & Abdominal Exam: Soft. absent: Tenderness Assessment and Plan - Assessment and Plan (Free Text) Plan: Assessment SIRS due to acute on chronic systolic heart failure positive HIV PCR, R/O acute versus chronic HIV infection S/P sepsis due to right lower lobe HCAP, S/P treatment with antibiotics obesity with BMI 35 COPD Plan follow up 4th generation HIV test result follow up T-cell count will monitor clinically overall prognosis is poor
[2018-08-30] MEDS: Albuterol-Ipratrop 3 mg / 0.5 (3 ml) UD IH SCH ×4 (02:43→20:05)
[2018-08-30 06:57] LABS: BASO # 0.01 K/mm3 (0.0-2.0); BASO % 0.1 % (0.0-3.0); EOS % 0.1 % (1.5-5.0); GRAN # 6.26 (1.4-6.5); LYMPH # 2.8 (1.2-3.4); LYMPH % 28.5 % (22.0-35.0); MEAN CELL VOLUME 72.3 fl (80.0-105.0); MEAN CORPUSCULAR HEMOGLOBIN 21.2 pg (25.0-35.0); MEAN CORPUSCULAR HGB CONC 29.3 g/dl (31.0-37.0); MEAN PLATELET VOLUME 9.9 fl (7.0-11.0); MONO # 0.7 (0.1-0.6); MONO % 7.3 % (1.0-6.0); RBC 2.64 10^6/uL (3.5-6.1); RED CELL DISTRIBUTION WIDTH 19.5 % (11.5-14.5); WHITE BLOOD COUNT 9.8 10^3/uL (4.5-11.0)
[2018-08-30 07:16] LABS: ALB/GLOB RATIO 0.6 (1.1-1.8); ALBUMIN 2.2 g/dL (3.0-4.8); ALT/SGPT 43 U/L (7-56); AST/SGOT 65 U/L (17-59); BLOOD UREA NITROGEN 65 mg/dL (7-21); CALCIUM 7.4 mg/dL (8.4-10.5); GFR NON-AFRICAN AMERICAN > 60
[2018-08-30 07:19] LABS: HEMOGLOBIN 5.6 g/dL (14.0-18.0)
--- NOTE | 2018-08-30 08:32 | PN ---
DATE: 08/27/2018 Progress note has been already written by Laverne Koehler. LOCATION: The patient in room 263, bed 1. This progress note is being written on behalf of Dr. Gillespie whom I am covering. Reason is congestive heart failure, fall from his bed. The patient fell from bed. He is a known case of CHF. He fell from bed and was brought to hospital. The patient found to be in exacerbation of his CHF. In the past, the patient was a poor compliant patient. The patient says that his breathing is better. He denies chest pain or palpitation. OBJECTIVE: CARDIOVASCULAR: S1, S2. LUNGS: The patient has rales in the lungs. The patient continued to be in congestive heart failure but clinically, he is better and we will continue present therapy and we will see the patient in the morning again and we will reevaluate. The patient is also known to have hypertension and diabetes mellitus. Sonu Aquino MD
[2018-08-30] MEDS: Insulin Reg-MEDIUM-Coverage SC SCH ×4 (08:53→22:30)
--- NOTE | 2018-08-30 09:54 | CP.PCM.PN ---
Subjective - Date & Time of Evaluation Date of Evaluation: 08/30/18 Time of Evaluation: 08:45 - Subjective Subjective: Patient is still having occasional shortness of breath, no fevers, not in distress. Objective - Vital Signs/Intake and Output Vital Signs (last 24 hours): Temp Pulse Resp BP Pulse Ox 98 F 74 20 128/89 95 08/29/18 17:30 08/29/18 17:30 08/29/18 17:30 08/29/18 17:30 08/28/18 06:00 - Medications Medications: Current Medications Albuterol/Ipratropium (Duoneb 3 Mg/0.5 Mg (3 Ml) Ud) 3 ml IH [id number] [facility] Last Admin: 08/29/18 13:10 Dose: 3 ml Albuterol/Ipratropium (Duoneb 3 Mg/0.5 Mg (3 Ml) Ud) 3 ml IH Q2H PRN PRN Reason: Shortness of Breath Last Admin: 08/25/18 23:35 Dose: 3 ml Aspirin (Ecotrin) 81 mg PO DAILY [facility] Last Admin: 08/29/18 09:47 Dose: 81 mg Atorvastatin Calcium (Lipitor) 80 mg PO DIN [facility] Last Admin: 08/29/18 17:18 Dose: 80 mg Carvedilol (Coreg) 12.5 mg PO BID [facility] Last Admin: 08/29/18 17:18 Dose: 12.5 mg Docusate Sodium (Colace) 100 mg PO BID [facility] Last Admin: 08/29/18 17:18 Dose: 100 mg Furosemide (Lasix) 40 mg IVP DAILY [facility] Glipizide (Glucotrol) 5 mg PO ACB [facility] Last Admin: 08/29/18 13:45 Dose: 5 mg Insulin Human Regular (Humulin R Med) 0 units SC [facility]; Protocol Last Admin: 08/29/18 17:18 Dose: 7 unit Losartan Potassium (Cozaar) 25 mg PO DAILY [facility] Last Admin: 08/29/18 09:48 Dose: 25 mg Methylprednisolone (Solu-Medrol) 40 mg IVP DAILY [facility] Last Admin: 08/29/18 09:46 Dose: 40 mg Pantoprazole Sodium (Protonix Ec Tab) 40 mg PO DAILY [facility] Last Admin: 08/29/18 09:48 Dose: 40 mg Polyethylene Glycol (Miralax) 17 gm PO DAILY [facility] Last Admin: 12/10/18 09:49 Dose: 17 gm - Labs Labs: 08/29/18 13:00 08/29/18 06:00 PT 25.1 SECONDS (9.4-12.5) H 08/25/18 16:40 INR 2.17 08/25/18 16:40 APTT 31.6 Seconds (25.1-36.5) 08/25/18 16:40 - Constitutional Appears: Chronically Ill - Head Exam Head Exam: NORMAL INSPECTION - Respiratory Exam Respiratory Exam: Decreased Breath Sounds - Cardiovascular Exam Cardiovascular Exam: +S1, +S2 - GI/Abdominal Exam GI & Abdominal Exam: Soft. absent: Tenderness Assessment and Plan - Assessment and Plan (Free Text) Plan: Assessment SIRS due to acute on chronic systolic heart failure positive HIV PCR and positive 4th generation antibody test, acute versus chronic HIV infection S/P sepsis due to right lower lobe HCAP, S/P treatment with antibiotics obesity with BMI 35 COPD Plan follow up T-cell count - patient will need to be arranged to see an HIV specialist on discharge for further management of HIV will continue to monitor clinically overall prognosis is poor
[2018-08-30 10:41] LABS: MEAN CELL VOLUME 72.2 fl (80.0-105.0); MEAN CORPUSCULAR HEMOGLOBIN 21.4 pg (25.0-35.0); MEAN CORPUSCULAR HGB CONC 29.7 g/dl (31.0-37.0); MEAN PLATELET VOLUME 9.8 fl (7.0-11.0); RBC 2.52 10^6/uL (3.5-6.1); RED CELL DISTRIBUTION WIDTH 19.5 % (11.5-14.5); WHITE BLOOD COUNT 10.7 10^3/uL (4.5-11.0)
[2018-08-30 10:51] LABS: HEMOGLOBIN 5.4 g/dL (14.0-18.0)
[2018-08-30 11:02] LABS: % CD4 (T HELPER CELL) 36 Percent (30-61); % CD8 (SUPPRESSOR T CELL) 39 Percent (12-42); ABSOLUTE CD4 CELLS 361 Cells/mcL (490-1740); ABSOLUTE CD8 CELLS 388 Cells/mcL (180-1170); ABSOLUTE LYMPHOCYTES 1006 Cells/mcL (850-3900); HELPER/SUPPRESSOR RATIO 0.93 Ratio (0.86-5.00)
[2018-08-30] MEDS: MethylPREDNISolone 40 mg Vial IVP SCH (11:15)
[2018-08-30] MEDS: POLYETHYLENE GLYCOL 3350 17 GM/Dose PACKET PO SCH (11:24)
--- NOTE | 2018-08-30 13:09 | PN ---
DATE: 08/30/2018 SUBJECTIVE: The patient denies any rectal bleeding or melena. He denies any prior history of any transfusion. He denies any chest pain. He refused, according to the medical center representative, rectal examination and refused idea of packed RBC transfusion. PHYSICAL EXAMINATION: VITAL SIGNS: Blood pressure 104/63, heart rate 84, temperature 97.9, respirations 20. HEENT: Pale conjunctivae. CHEST: Diminished breath sounds at the bases. HEART: S1 and S2 regular. EXTREMITIES: 1+ pitting edema. LABORATORY DATA: Today's hemoglobin and hematocrit are 5.6 and 19.1 respectively, white count and platelet count are within normal limits. Today's BUN and creatinine are 65 and 0.8 respectively. Glucose 213. ASSESSMENT: 1. Worsening anemia. 2. Right ventricular failure. 3. Prerenal azotemia. 4. Liver cirrhosis. 5. Status post fall. RECOMMENDATIONS: Discontinue aspirin. Continue Coreg 12.5 mg twice a day, Cozaar 25 mg once a day, Lasix 40 mg intravenously once a day, Lipitor 80 mg once a day, Solu-Medrol 20 mg daily. Case was discussed with the medical team and I recommended GI evaluation. Beny Salgado MD
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
--- NOTE | 2018-08-30 14:59 | CP.PCM.PN ---
<Elie Herr - Last Filed: 08/30/18 14:54> Subjective - Date & Time of Evaluation Date of Evaluation: 08/30/18 Time of Evaluation: 08:00 - Subjective Subjective: Elie Herr PGY-1 Progress Note for Hospitalist Service Patient seen and evaluated at bedside. No acute events reported overnight. Patient was off nasal cannula at time of evaluation and respirating without difficulty this morning. Patient denies nausea, vomiting, chest pain, leg pain, abdominal pain, cough. Later in morning, patient reports feeling cold but denies BRBPR, hemoptysis, and hematochezia. Objective - Vital Signs/Intake and Output Vital Signs (last 24 hours): Temp Pulse Resp BP Pulse Ox 98.1 F 95 H 19 135/65 94 L 08/30/18 14:51 08/30/18 14:51 08/30/18 14:51 08/30/18 14:51 08/30/18 06:00 Intake and Output: 08/30/18 08/30/18 06:59 18:59 Intake Total 120 30 Balance 120 30 - Medications Medications: Current Medications Albuterol/Ipratropium (Duoneb 3 Mg/0.5 Mg (3 Ml) Ud) 3 ml IH [id number] [facility], [facility] Last Admin: 08/30/18 13:52 Dose: 3 ml Albuterol/Ipratropium (Duoneb 3 Mg/0.5 Mg (3 Ml) Ud) 3 ml IH Q2H PRN PRN Reason: Shortness of Breath Last Admin: 08/25/18 23:35 Dose: 3 ml Atorvastatin Calcium (Lipitor) 80 mg PO DIN [facility] Last Admin: 08/29/18 17:18 Dose: 80 mg Carvedilol (Coreg) 12.5 mg PO BID [facility] Last Admin: 08/30/18 11:14 Dose: 12.5 mg Docusate Sodium (Colace) 100 mg PO BID [facility], [facility]–1983 Last Admin: 08/30/18 11:14 Dose: 100 mg Furosemide (Lasix) 40 mg IVP DAILY [facility] Last Admin: 08/30/18 11:24 Dose: Not Given Glipizide (Glucotrol) 5 mg PO ACB [facility] Last Admin: 08/30/18 08:53 Dose: 5 mg Pantoprazole Sodium (Protonix 40mg Ivpb) 40 mg in 100 mls @ 20 mls/hr IVPB .Q5H [facility], [facility] Insulin Human Regular (Humulin R Med) 0 units SC ACHS [facility], [facility]; Protocol Last Admin: 08/30/18 14:00 Dose: 7 unit Losartan Potassium (Cozaar) 25 mg PO DAILY [facility] Last Admin: 08/30/18 11:14 Dose: 25 mg Methylprednisolone (Solu-Medrol) 40 mg IVP DAILY [facility] Last Admin: 08/30/18 11:15 Dose: 40 mg Polyethylene Glycol (Miralax) 17 gm PO DAILY [facility] Last Admin: 08/30/18 11:24 Dose: Not Given - Labs Labs: 08/30/18 10:35 08/30/18 05:50 PT 25.1 SECONDS (9.4-12.5) H 08/25/18 16:40 INR 2.17 08/25/18 16:40 APTT 31.6 Seconds (25.1-36.5) 08/25/18 16:40 - Additional Findings Additional findings: - Constitutional Appears: Well, Non-toxic, No Acute Distress - Head Exam Head Exam: ATRAUMATIC, NORMAL INSPECTION, NORMOCEPHALIC - Eye Exam Eye Exam: EOMI Pupil Exam: PERRL - Respiratory Exam Respiratory Exam: Clear to Auscultation Bilateral, NORMAL BREATHING PATTERN, on NC - Cardiovascular Exam Cardiovascular Exam: REGULAR RHYTHM - GI/Abdominal Exam GI & Abdominal Exam: Soft, Normal Bowel Sounds - Extremities Exam Extremities Exam: Full ROM. Chronic vascular epidermal changes to both LEs below knee - Neurological Exam Neurological Exam: Alert, Awake, CN II-XII Intact, Oriented x3 Rectal exam: refused Assessment and Plan - Assessment and Plan (Free Text) Assessment: 53 year old male with past medical history of COPD, diabetes mellitus type II, HTN, HLD, systolic CHF with EF of 39%, CAD with stent, lumbar radiculopathy, gout, and questionable HIV presents with shortness of breath on admission after falling at home. CXR showed cardiomegaly with resolved pulmonary congestion. Echocardiogram from 05/07 showed mild concentric LVH, systolic function moderately impaired, septal hypokinesis, mild MR, moderate TR, mild pulmonary HTN, and aortic root mildly enlarged. Patient was found to be severely anemic this morning. Repeat Hgb 5.4, and patient is currently being transfused 2 units. Plan: Severe anemia - Hgb 5.4 - melena reported - f/u coag studies per GI - Octreotide drip per GI - f/u abdominal U/S to r/o portal vein hepatic thrombus - hemodynamically stable, BP 136/72, HR 89 -Type and Screen, Transfused 2 units PRBCs -Plan to collect CBC after transfusion - ICU consult placed - Dr. Alesha augustin appreciated - GI consult - Dr. Suzie augustin appreciated Shortness of Breath likely 2/2 to CHF exacerbation -CXR consistent with cardiomegaly, patient has noncompliance with BiPAP -BNP 35154 -Echocardiogram shows mild systolic congestive heart failure with EF of 39% from 04/2018 -For suspected COPD, patient should continue duonebs, azithromycin, and methylprednisolone. Methylprednisolone dose was reduced to 40 mg IVP daily -For suspected CHF, patient should continue with coreg 12.5 mg BID per cardio. Clinically, patient does not have significant lower extremity edema. Patient was ordered Bipap for CHF as well. - f/u cardio consult- Dr. Salgado - Lasix changed to 40 mg IV and f/u FOBT Leukocytosis-resolved -WBC: 10.7 -CXR, UA are both negative. -Likely stress induced due to severe shortness of breath episodes. Severe Agitation 2/2 to schizophrenia vs uremic encephalopathy vs. alcohol withdrawal -Abdominal ultrasound suggests hepatocellular disease or cirrhosis. - f/u ammonia. -Psychiatry consult for other possible causes of agitation such as schizophrenia placed- no psych indication for continued follow up, and delirium may take few weeks to resolve CAD with stent -EKG: Atrial fibrillation, right bundle branch block, HR of 88 -Troponinx3: 0.06, 0.06, 0.05. Unlikely CA. Elevation likely due to CORAZON -Cardiac catheterization in 12/2017 showed LAD lesion 80% -Continue with aspirin, cored, zestril, cozaar -TSH: 2.41, LDL: 75 -Telemetry -History of use of life vest CORAZON -Patient's creatinine has increased from baseline of 0.8 to 1.2 on this admission. Creatinine down to 1.0 today. -BUN/Cr ratio is more than 20:1 so likely prerenal cause, dehydration from repeated administration of lasix for suspected CHF Diabetes mellitus type II -Accuchecks -HgbA1c: 6.9 -Hypoglycemia protocol -HHD with consistent carbohydrate diet on hold, NPO currently -Medium dose sliding scale insulin as well as Glipizide Obstructive Sleep Apnea -Continue with CPAP/BiPap at night Hypertension -Continue with coreg, cozaar, and zestril Constipation -Continue with colace and miralax Hyperlipidemia -Lipid panel unremarkable -Continue with lipitor History of HIV -Positive reactivity in 04/2018 for HIV 1, but HIV 2 was negative. Viral load was not detected -CD4 count at that time was 727. -Hepatitis panel was negative. GI prophylaxis: Protonix drip in light of GI bleed DVT prophylaxis: heparin 5000 U Q8 held in light of anemia Patient seen, case reviewed and plan approved by Dr. Herman. Elie Herr, PGY-1 <Willy Herman - Last Filed: 08/31/18 16:12> Objective - Vital Signs/Intake and Output Vital Signs (last 24 hours): Temp Pulse Resp BP Pulse Ox 98.4 F 116 H 15 111/66 100 08/31/18 15:00 08/31/18 15:00 08/31/18 15:00 08/31/18 15:00 08/31/18 14:54 Intake and Output: 08/31/18 08/31/18 06:59 18:59 Intake Total 1475 371 Balance 1475 371 - Medications Medications: Current Medications Albumin Human (Albumin Human 25% (12.5 Gm/50 Ml)) 12.5 gm IV Q4H [facility] Last Admin: 08/31/18 11:59 Dose: 12.5 gm Albuterol/Ipratropium (Duoneb 3 Mg/0.5 Mg (3 Ml) Ud) 3 ml IH [id number] [facility] Last Admin: 08/31/18 14:18 Dose: 3 ml Albuterol/Ipratropium (Duoneb 3 Mg/0.5 Mg (3 Ml) Ud) 3 ml IH Q2H PRN PRN Reason: Shortness of Breath Last Admin: 08/25/18 23:35 Dose: 3 ml Atorvastatin Calcium (Lipitor) 80 mg PO DIN [facility] Last Admin: 08/30/18 20:22 Dose: Not Given Carvedilol (Coreg) 12.5 mg PO BID [facility] Last Admin: 08/30/18 11:14 Dose: 12.5 mg Docusate Sodium (Colace) 100 mg PO BID [facility] Last Admin: 08/31/18 09:45 Dose: Not Given Furosemide (Lasix) 40 mg IVP DAILY [facility] Last Admin: 08/31/18 09:44 Dose: 40 mg Glipizide (Glucotrol) 5 mg PO ACB [facility] Last Admin: 08/31/18 07:45 Dose: Not Given Pantoprazole Sodium (Protonix 40mg Ivpb) 40 mg in 100 mls @ 20 mls/hr IVPB .Q5H [facility] Last Admin: 08/31/18 13:04 Dose: 20 mls/hr Ceftriaxone Sodium (Rocephin 1 Gram Ivpb) 1 gm in 100 mls @ 100 mls/hr IVPB TRUDI LY TRAVIS; Protocol Last Admin: 08/31/18 09:46 Dose: 100 mls/hr Dobutamine HCl/Dextrose (Dobutamine/Dextrose 5% 500mg/250ml) 500 mg in 250 mls @ 8.957 mls/hr IV .Q24H PRN; Protocol PRN Reason: TITRATE PER PROTOCOL Last Admin: 08/31/18 09:46 Dose: 2.5 mcg/kg/min, 8.957 mls/hr Propofol (Diprivan) 1,000 mg in 100 mls @ 3.583 mls/hr IV .Q24H PRN; Protocol PRN Reason: TITRATE PER MD ORDER Last Titration: 08/31/18 16:02 Dose: 20 mcg/kg/min, 14.332 mls/hr Insulin Human Lispro (Humalog High) 0 units SC Q4 TRA[facility]; Protocol Last Admin: 08/31/18 12:00 Dose: 4 units Lactulose (Enulose) 20 gm PO TID [facility] Last Admin: 08/31/18 14:00 Dose: Not Given Losartan Potassium (Cozaar) 25 mg PO DAILY [facility] Last Admin: 08/30/18 11:14 Dose: 25 mg Methylprednisolone (Solu-Medrol) 40 mg IVP DAILY [facility] Last Admin: 08/31/18 09:45 Dose: 40 mg Rifaximin (Xifaxan) 550 mg PO BID [facility]; Protocol Last Admin: 08/31/18 10:30 Dose: Not Given - Labs Labs: 08/31/18 10:40 08/31/18 10:40 PT 13.5 SECONDS (9.4-12.5) H 08/31/18 10:40 INR 1.17 08/31/18 10:40 APTT 31.6 Seconds (25.1-36.5) 08/25/18 16:40 Attending/Attestation - Attestation I have personally seen and examined this patient.: Yes I have fully participated in the care of the patient.: Yes I have reviewed all pertinent clinical information, including history, physical exam and plan: Yes Notes (Text): 53 year old male with past medical history of COPD, diabetes mellitus type II, HTN, HLD, systolic CHF with EF of 39%, CAD with stent, lumbar radiculopathy, gout, and questionable HIV. Acute blood loss anemia GI bleed CHF exacerbation CORAZON DM CHARAN Pt noted to have melanotic stool. Hgb dropped to 5.4 from >7 Type and screen Transfuse 2units PRBC and monitor CBC closely start pt on octrotide and protonix GI on board Consult ICU for closer monitor LAsix 40 IV Hold other BP meds for now, given the GI bleed
[2018-08-30] MEDS ORDERED: Octreotide 1,250 MCG in Dextrose 5% In Water 250 ML IV SCH (15:15)
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
[2018-08-30] MEDS ORDERED: Phytonadione 10 MG in Sodium Chloride 0.9% 50 ML IV ONE (16:13)
[2018-08-30 16:43] LABS: INR 1.41; PROTHROMBIN TIME 16.2 SECONDS (9.4-12.5)
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
[2018-08-30] MEDS: Pantoprazole 40mg/100mL NS 40 MG/100 ML BAG IVPB SCH (22:18)
[2018-08-31] MEDS: Albuterol-Ipratrop 3 mg / 0.5 (3 ml) UD IH SCH ×4 (02:03→20:15)
[2018-08-31 02:06] LABS: BASO # 0.01 K/mm3 (0.0-2.0); BASO % 0.1 % (0.0-3.0); GRAN # 8.38 (1.4-6.5); GRAN % 65.3 % (50.0-68.0); LYMPH # 3.5 (1.2-3.4); LYMPH % 27.4 % (22.0-35.0); MEAN CORPUSCULAR HEMOGLOBIN 23.5 pg (25.0-35.0); MEAN CORPUSCULAR HGB CONC 31.2 g/dl (31.0-37.0); MEAN PLATELET VOLUME 9.6 fl (7.0-11.0); MONO # 0.9 (0.1-0.6); MONO % 7.2 % (1.0-6.0); RBC 2.3 10^6/uL (3.5-6.1); RED CELL DISTRIBUTION WIDTH 18.7 % (11.5-14.5); WHITE BLOOD COUNT 12.8 10^3/uL (4.5-11.0)
[2018-08-31 02:15] LABS: HEMOGLOBIN 5.4 g/dL (14.0-18.0)
[2018-08-31 02:16] LABS: MEAN CELL VOLUME 75.2 fl (80.0-105.0)
[2018-08-31] MEDS: Pantoprazole 40mg/100mL NS 40 MG/100 ML BAG IVPB SCH ×5 (02:56→18:15)
[2018-08-31] MEDS: Albumin Human 25% (12.5 gm/50 ml) IV SCH ×4 (08:20→21:29)
[2018-08-31 08:22] LABS: ARTERIAL BLOOD GAS O2 SAT 98.3 % (95-98); ARTERIAL BLOOD GAS PH 7.35 (7.35-7.45); ARTERIAL BLOOD GAS TCO2 42.5 mmol.L (22-28)
[2018-08-31 08:26] LABS: ARTERIAL BLOOD GAS PCO2 73 mm/Hg (35-45)
[2018-08-31 08:27] LABS: ARTERIAL BLOOD GAS HCO3 40.3 mmol/L (21-28)
[2018-08-31] MEDS: Insulin Lispro (HUMAlog) HIGH Coverage SC SCH ×4 (08:28→21:44)
[2018-08-31] MEDS ORDERED: DOBUTamine 500mg/250ml D5W 500 MG/250 ML BAG IV PRN (08:36)
--- NOTE | 2018-08-31 09:21 | PN ---
DATE: 08/31/2018 SUBJECTIVE: The patient is seen and examined at bedside. His night was fairly uneventful. He is still sleepy; however, most likely partly due to director environmental hours. He did have one melanotic stool overnight with some clots. The patient received a total of four units of blood so far; however, his hemoglobin still remains below 6 (5.6 to 5.4 to 5.4.). PHYSICAL EXAMINATION: VITAL SIGNS: Blood pressure 142/68, heart rate 84, oxygen saturation 100% on 2 liters nasal cannula, respiratory rate 20 TO 24. INR 1.41. HEENT: Head and neck atraumatic, obese neck. LUNGS: Clear to auscultation bilaterally. HEART: Regular rate and rhythm. S1 and S2, normal. ABDOMEN: Soft, nontender, nondistended. MUSCULOSKELETAL: Trace to 1+ bilateral pedal and ankle edema. NEUROLOGIC: The patient moves all extremities spontaneously. SKIN: Moist. PSYCHIATRIC: Patient is sleepy but easily awake and alert, following commands. LABORATORY DATA: WBC 12.8, hemoglobin 5.4, platelet count 154. Sodium 142, potassium 3.6, chloride 102, carbon dioxide 40, BUN 65, creatinine 0.8, lactic acid level 2, troponin 0.05. AST 65, ALT 43, total bilirubin 0.7, ammonia level 49. U tox screen from six days ago negative. Serology positive for HIV and CD-4 count is 361. Urine is negative for leukocyte esterase, wbc's and nitrates. ABG is pending. MEDICATIONS: DuoNeb p.r.n. and every 6 hours, Lipitor 80 mg p.o. daily, Coreg, Colace, Lasix 40 mg IV daily, glipizide 5 mg p.o. before meals; however, will be put on hold for n.p.o. until upper endoscopy, Solu-Medrol daily, regular insulin sliding scale medium protocol, Protonix drip, ceftriaxone, octreotide drip. Chest x-ray showed bilateral vascular congestion. ASSESSMENT AND PLAN: This is a 53-year-old gentleman who was admitted to intensive care unit with active upper gastrointestinal bleed in the absence of hemorrhagic shock; however, in the setting of substantial cardiopulmonary comorbidities including biventricular failure and PH. The patient maintains hemodynamic stability. He does not have any acute ischemic episode. His troponin level is 0.05 and he does not have signs of global hyperperfusion including lactic acid level within normal limits. At the present time, the patient is scheduled for upper endoscopy as per Dr. Larsen to rule out variceal or other source of upper gastrointestinal bleed. Would be a good idea to intubate for airway protection for the procedure. The patient did not respond appropriately to 4 units of blood and continued to actively bleed. His INR is below 1.5. He received vitamin K recently. At the present time, we will continue with n.p.o., albumin supplementation (will avoid aggressive hydration due to biventricular failure and some signs of fluid overload), transfuse blood products and consider 1:1:1 transfusion if the patient requires more PRBCs. Avoid hypothermia, dilutional coagulopathy, and acidosis. Protonix and octreotide drip. Arterial blood gas is pending. We will get Surgery as a backup for the upper gastrointestinal bleed. The official report of abdominal ultrasound with Doppler is anticipated in case the patient would require TIPS. Complete blood count every 6 hours. Gastrointestinal followup. We will continue with mechanical deep vein thrombosis prophylaxis. While the patient is hemodynamically stable and does not have need for immediate/emergent ionotropic support, we will get cardiology followup. ccm time 40 min Randall Mcwilliams MD [email or web address]
--- NOTE | 2018-08-31 09:22 | CP.CCUPN ---
<Lukasz Hayden - Last Filed: 08/31/18 12:28> CCU Subjective - Physician Review Subjective (Free Text): Lukasz Hayden, PGY1 ICU Progress Note for Dr. Mcwilliams Patient was seen and examined at bedside this morning. He is AAOx3. In terms of overnight events, patient had episode of melena with clots overnight. Patient is currently being transfused his 4th unit of pRBC. Patient denies sob, chest pain, abdominal pain, n/v/d. BP during time of interview was 92/34; he was hypotensive overnight with BP high 80s/50s. Respiratory rate was noted to be 9 during interview; patient taking shallow breaths. ABG stat was done at the time of interview and patient placed on BiPAP 03/03 on 30% FiO2. A full 12 point ROS was conducted and unremarkable except as stated above. CCU Objective - Vital Signs / Intake & Output Vital Signs (Last 4 hours): Vital Signs Pulse Resp BP Pulse Ox 08/31/18 08:35 87 08/31/18 08:01 106/68 95 08/31/18 08:00 88 L 08/31/18 07:50 100 08/31/18 07:47 99 H 21 08/31/18 07:42 112 H 08/31/18 07:40 81 38 H 08/31/18 07:39 108 H 08/31/18 07:34 98 H 08/31/18 07:30 142/68 08/31/18 07:29 94 H 12 08/31/18 07:26 100 H 19 08/31/18 07:20 107 H 16 100 08/31/18 07:14 100 H 08/31/18 07:10 100 H 24 100 08/31/18 07:00 91 H 15 124/72 66 L 08/31/18 06:55 77 29 H 121/69 100 08/31/18 06:53 101 H 23 08/31/18 06:52 100 H 22 08/31/18 06:51 89 12 08/31/18 06:50 99 H 08/31/18 06:49 90 24 08/31/18 06:48 78 8 L 08/31/18 06:47 86 10 L 08/31/18 06:46 96 H 08/31/18 06:45 99 H 15 08/31/18 06:44 100 H 16 08/31/18 06:43 71 28 H 08/31/18 06:42 97 H 54 H 08/31/18 06:41 98 H 08/31/18 06:40 104 H 08/31/18 06:39 102 H 08/31/18 06:38 82 23 08/31/18 06:37 99 H 14 08/31/18 06:32 107 H 20 08/31/18 06:30 96 H 94/55 L 100 08/31/18 06:20 91 H 17 100 08/31/18 06:10 104 H 12 100 08/31/18 06:05 101 H 08/31/18 06:02 90 21 08/31/18 06:01 75 14 08/31/18 06:00 94 H 22 89/49 L 100 08/31/18 05:53 115 H 08/31/18 05:51 87 08/31/18 05:50 104 H 100 Intake and Output (Last 8hrs): Intake & Output 08/30/18 08/31/18 08/31/18 22:59 06:59 14:59 Intake Total 1390 1475 Balance 1390 1475 Weight 119.295 kg 119.431 kg Intake: IV 1035 500 Left Antecubital 250 Left Thumb 1035 250 Blood Product 325 975 Red Blood Cells Cpd As1 325 Lr Unit [id number] Other 30 Red Blood Cells Cpd As1 30 Lr Unit [id number] Other: # Bowel Movements 1 - Physical Exam Head: Positive for: Atraumatic, Normocephalic Pupils: Positive for: PERRL Extroacular Muscles: Positive for: EOMI Conjunctiva: Positive for: Normal Mouth: Positive for: Moist Mucous Membranes, Other (BiPAP in place) Neck: Positive for: Normal Range of Motion Respiratory/Chest: Positive for: Clear to Auscultation. Negative for: Good Air Exchange, Respiratory Distress, Accessory Muscle Use, Wheezes, Rales, Retracting, Rhonchi, Tachypneic Cardiovascular: Positive for: Regular Rate and Rhythm, Normal S1, S2. Negative for: Murmurs Abdomen: Positive for: Normal Bowel Sounds. Negative for: Tenderness, Distention, Peritoneal Signs, Rebound, Guarding Back: Positive for: Normal Inspection Upper Extremity: Positive for: Normal Inspection. Negative for: Cyanosis, Edema Lower Extremity: Positive for: Other (B/L lower extremity stasis dermatitis/scaly dry skin noted). Negative for: Edema Neurological: Positive for: Speech Normal, Motor Func Grossly Intact Skin: Positive for: Warm, Dry, Normal Color. Negative for: Rashes Psychiatric: Positive for: Alert, Oriented x 3 - Medications Active Medications: Active Medications Generic Name Dose Route Start Last Admin Trade Name Freq PRN Reason Stop Dose Admin Albumin Human 12.5 gm 08/31/18 08:00 08/31/18 08:20 Albumin Human 25% (12.5 Gm/50 Ml) IV 12.5 gm Q4H TRAVIS Administration Albuterol/Ipratropium 3 ml 08/26/18 02:00 08/31/18 07:50 Duoneb 3 Mg/0.5 Mg (3 Ml) Ud IH 3 ml [id number] TRAVIS Administration Albuterol/Ipratropium 3 ml 08/25/18 20:01 08/25/18 23:35 Duoneb 3 Mg/0.5 Mg (3 Ml) Ud IH 3 ml Q2H PRN Administration Shortness of Breath Atorvastatin Calcium 80 mg 08/25/18 20:15 08/30/18 20:22 Lipitor PO Not Given DIN TRAVIS Carvedilol 12.5 mg 08/25/18 21:15 08/30/18 11:14 Coreg PO 12.5 mg BID TRAVIS Administration Docusate Sodium 100 mg 08/26/18 10:00 08/30/18 18:40 Colace PO Not Given BID TRAVIS Furosemide 40 mg 08/30/18 10:00 08/30/18 11:24 Lasix IVP Not Given DAILY TRAVIS Glipizide 5 mg 08/29/18 10:45 08/31/18 07:45 Glucotrol PO Not Given ACB TRAVIS Pantoprazole Sodium 40 mg in 100 mls @ 20 mls/hr 08/30/18 15:00 08/31/18 07:44 Protonix 40mg Ivpb IVPB 20 mls/hr .Q5H TRAVIS Administration Octreotide Acetate 1,250 mcg/ 252.5 mls @ 5.05 mls/hr 08/30/18 15:15 08/30/18 21:15 Dextrose IV 25 mcg/hr .Q24H TRAVIS 5.05 mls/hr Administration Protocol 25 MCG/HR Ceftriaxone Sodium 1 gm in 100 mls @ 100 mls/hr 08/31/18 10:00 Rocephin 1 Gram Ivpb IVPB DAILY TRAVIS Protocol Dobutamine HCl/Dextrose 500 mg in 250 mls @ 8.957 mls/hr 08/31/18 08:36 Dobutamine/Dextrose 5% 500mg/250ml IV .Q24H PRN TITRATE PER PROTOCOL Protocol 2.5 MCG/KG/MIN Insulin Human Lispro 0 units 08/31/18 08:00 08/31/18 08:28 Humalog High SC 12 units Q4 TRAVIS Administration Protocol Losartan Potassium 25 mg 08/27/18 12:30 08/30/18 11:14 Cozaar PO 25 mg DAILY TRAVIS Administration Methylprednisolone 40 mg 08/29/18 10:00 08/30/18 11:15 Solu-Medrol IVP 40 mg DAILY TRAVIS Administration Polyethylene Glycol 17 gm 08/26/18 10:00 08/30/18 11:24 Miralax PO Not Given DAILY TRAVIS - Patient Studies Lab Studies: Microbiology Studies 08/25/18 17:30 Blood Culture - Final Blood-Venous NO GROWTH AFTER 5 DAYS Gram Stain - Final TEST NOT PERFORMED 08/25/18 16:40 Blood Culture - Final Blood-Venous NO GROWTH AFTER 5 DAYS Gram Stain - Final TEST NOT PERFORMED Lab Studies 08/31/18 08/31/18 08/30/18 Range/Units 08:15 01:45 20:50 WBC 12.8 H (4.5-11.0) 10^3/uL RBC 2.30 L (3.5-6.1) 10^6/uL Hgb 5.4 L* (14.0-18.0) g/dL Hct 17.3 L* (42.0-52.0) % MCV 75.2 L D (80.0-105.0) fl MCH 23.5 L (25.0-35.0) pg MCHC 31.2 (31.0-37.0) g/dl RDW 18.7 H (11.5-14.5) % Plt Count 154 (120.0-450.0) 10^3/uL MPV 9.6 (7.0-11.0) fl Gran % 65.3 (50.0-68.0) % Lymph % (Auto) 27.4 (22.0-35.0) % Griggs % (Auto) 7.2 H (1.0-6.0) % Eos % (Auto) 0.0 L (1.5-5.0) % Baso % (Auto) 0.1 (0.0-3.0) % Gran # 8.38 H (1.4-6.5) Lymph # (Auto) 3.5 H (1.2-3.4) Griggs # (Auto) 0.9 H (0.1-0.6) Eos # (Auto) 0.0 (0.0-0.7) Baso # (Auto) 0.01 (0.0-2.0) K/mm3 PT (9.4-12.5) SECONDS INR pCO2 73 H* (35-45) mm/Hg pO2 87.0 (80-100) mm/Hg HCO3 40.3 H* (21-28) mmol/L ABG pH 7.35 (7.35-7.45) ABG Total CO2 42.5 H (22-28) mmol.L ABG O2 Saturation 98.3 H (95-98) % ABG Base Excess 11.4 H (-2.0-3.0) mmol/L ABG Potassium 3.8 (3.6-5.2) mmol/L Sodium 147.0 (132-148) mmol/L Chloride 109.0 H (98-107) mmol/L Glucose 276 H (75-110) mg/dl Lactate 2.0 (0.7-2.1) mmol/L FiO2 28.0 % Lactic Acid (0.7-2.1) mmol/L Ammonia (9-33) umol/L Troponin I 0.05 ng/mL Arterial Blood Potassium 3.8 (3.6-5.2) mmol/L Absolute Lymphs (Flow) (850-3900) Cells/mcL % CD4 Cells (30-61) Percent Absolute CD4 Count (490-1740) Cells/mcL T-Help/Suppress Ratio (0.86-5.00) Ratio % CD8 Cells (12-42) Percent Absolute CD8 Count (180-1170) Cells/mcL Blood Type Antibody Screen Crossmatch BBK History Checked 08/30/18 08/30/18 08/30/18 Range/Units 20:50 16:33 16:33 WBC (4.5-11.0) 10^3/uL RBC (3.5-6.1) 10^6/uL Hgb (14.0-18.0) g/dL Hct (42.0-52.0) % MCV (80.0-105.0) fl MCH (25.0-35.0) pg MCHC (31.0-37.0) g/dl RDW (11.5-14.5) % Plt Count (120.0-450.0) 10^3/uL MPV (7.0-11.0) fl Gran % (50.0-68.0) % Lymph % (Auto) (22.0-35.0) % Griggs % (Auto) (1.0-6.0) % Eos % (Auto) (1.5-5.0) % Baso % (Auto) (0.0-3.0) % Gran # (1.4-6.5) Lymph # (Auto) (1.2-3.4) Griggs # (Auto) (0.1-0.6) Eos # (Auto) (0.0-0.7) Baso # (Auto) (0.0-2.0) K/mm3 PT 16.2 H (9.4-12.5) SECONDS INR 1.41 pCO2 (35-45) mm/Hg pO2 (80-100) mm/Hg HCO3 (21-28) mmol/L ABG pH (7.35-7.45) ABG Total CO2 (22-28) mmol.L ABG O2 Saturation (95-98) % ABG Base Excess (-2.0-3.0) mmol/L ABG Potassium (3.6-5.2) mmol/L Sodium (132-148) mmol/L Chloride (98-107) mmol/L Glucose (75-110) mg/dl Lactate (0.7-2.1) mmol/L FiO2 % Lactic Acid 2.0 (0.7-2.1) mmol/L Ammonia 49 H (9-33) umol/L Troponin I ng/mL Arterial Blood Potassium (3.6-5.2) mmol/L Absolute Lymphs (Flow) (850-3900) Cells/mcL % CD4 Cells (30-61) Percent Absolute CD4 Count (490-1740) Cells/mcL T-Help/Suppress Ratio (0.86-5.00) Ratio % CD8 Cells (12-42) Percent Absolute CD8 Count (180-1170) Cells/mcL Blood Type Antibody Screen Crossmatch BBK History Checked 08/30/18 08/30/18 08/27/18 Range/Units 10:35 10:35 07:00 WBC 10.7 (4.5-11.0) 10^3/uL RBC 2.52 L (3.5-6.1) 10^6/uL Hgb 5.4 L* (14.0-18.0) g/dL Hct 18.2 L* (42.0-52.0) % MCV 72.2 L (80.0-105.0) fl MCH 21.4 L (25.0-35.0) pg MCHC 29.7 L (31.0-37.0) g/dl RDW 19.5 H (11.5-14.5) % Plt Count 177 (120.0-450.0) 10^3/uL MPV 9.8 (7.0-11.0) fl Gran % (50.0-68.0) % Lymph % (Auto) (22.0-35.0) % Griggs % (Auto) (1.0-6.0) % Eos % (Auto) (1.5-5.0) % Baso % (Auto) (0.0-3.0) % Gran # (1.4-6.5) Lymph # (Auto) (1.2-3.4) Griggs # (Auto) (0.1-0.6) Eos # (Auto) (0.0-0.7) Baso # (Auto) (0.0-2.0) K/mm3 PT (9.4-12.5) SECONDS INR pCO2 (35-45) mm/Hg pO2 (80-100) mm/Hg HCO3 (21-28) mmol/L ABG pH (7.35-7.45) ABG Total CO2 (22-28) mmol.L ABG O2 Saturation (95-98) % ABG Base Excess (-2.0-3.0) mmol/L ABG Potassium (3.6-5.2) mmol/L Sodium (132-148) mmol/L Chloride (98-107) mmol/L Glucose (75-110) mg/dl Lactate (0.7-2.1) mmol/L FiO2 % Lactic Acid (0.7-2.1) mmol/L Ammonia (9-33) umol/L Troponin I ng/mL Arterial Blood Potassium (3.6-5.2) mmol/L Absolute Lymphs (Flow) 1006 (850-3900) Cells/mcL % CD4 Cells 36 (30-61) Percent Absolute CD4 Count 361 L (490-1740) Cells/mcL T-Help/Suppress Ratio 0.93 (0.86-5.00) Ratio % CD8 Cells 39 (12-42) Percent Absolute CD8 Count 388 (180-1170) Cells/mcL Blood Type A POSITIVE Antibody Screen Negative Crossmatch See Detail BBK History Checked Patient has bt Laboratory Results - last 24 hr 08/27/18 08/30/18 08/30/18 07:00 10:35 10:35 WBC 10.7 RBC 2.52 L Hgb 5.4 L* Hct 18.2 L* MCV 72.2 L MCH 21.4 L MCHC 29.7 L RDW 19.5 H Plt Count 177 MPV 9.8 Gran % Lymph % (Auto) Griggs % (Auto) Eos % (Auto) Baso % (Auto) Gran # Lymph # (Auto) Griggs # (Auto) Eos # (Auto) Baso # (Auto) PT INR pCO2 pO2 HCO3 ABG pH ABG Total CO2 ABG O2 Saturation ABG Base Excess ABG Potassium Sodium Chloride Glucose Lactate FiO2 Lactic Acid Ammonia Troponin I Arterial Blood Potassium Absolute Lymphs (Flow) 1006 % CD4 Cells 36 Absolute CD4 Count 361 L T-Help/Suppress Ratio 0.93 % CD8 Cells 39 Absolute CD8 Count 388 Blood Type A POSITIVE Antibody Screen Negative Crossmatch See Detail BBK History Checked Patient has bt 08/30/18 08/30/18 08/30/18 16:33 16:33 20:50 WBC RBC Hgb Hct MCV MCH MCHC RDW Plt Count MPV Gran % Lymph % (Auto) Griggs % (Auto) Eos % (Auto) Baso % (Auto) Gran # Lymph # (Auto) Griggs # (Auto) Eos # (Auto) Baso # (Auto) PT 16.2 H INR 1.41 pCO2 pO2 HCO3 ABG pH ABG Total CO2 ABG O2 Saturation ABG Base Excess ABG Potassium Sodium Chloride Glucose Lactate FiO2 Lactic Acid 2.0 Ammonia 49 H Troponin I Arterial Blood Potassium Absolute Lymphs (Flow) % CD4 Cells Absolute CD4 Count T-Help/Suppress Ratio % CD8 Cells Absolute CD8 Count Blood Type Antibody Screen Crossmatch BBK History Checked 08/30/18 08/31/18 08/31/18 20:50 01:45 08:15 WBC 12.8 H RBC 2.30 L Hgb 5.4 L* Hct 17.3 L* MCV 75.2 L D MCH 23.5 L MCHC 31.2 RDW 18.7 H Plt Count 154 MPV 9.6 Gran % 65.3 Lymph % (Auto) 27.4 Griggs % (Auto) 7.2 H Eos % (Auto) 0.0 L Baso % (Auto) 0.1 Gran # 8.38 H Lymph # (Auto) 3.5 H Griggs # (Auto) 0.9 H Eos # (Auto) 0.0 Baso # (Auto) 0.01 PT INR pCO2 73 H* pO2 87.0 HCO3 40.3 H* ABG pH 7.35 ABG Total CO2 42.5 H ABG O2 Saturation 98.3 H ABG Base Excess 11.4 H ABG Potassium 3.8 Sodium 147.0 Chloride 109.0 H Glucose 276 H Lactate 2.0 FiO2 28.0 Lactic Acid Ammonia Troponin I 0.05 Arterial Blood Potassium 3.8 Absolute Lymphs (Flow) % CD4 Cells Absolute CD4 Count T-Help/Suppress Ratio % CD8 Cells Absolute CD8 Count Blood Type Antibody Screen Crossmatch BBK History Checked Fingerstick Blood Sugar Results: 386 Review of Systems - Review of Systems All systems: reviewed and no additional remarkable complaints except (as per HPI) Critical Care Progress Note - Nutrition Nutrition: Nutrition Category Date Time Status NPO Diet [DIET] Diets 08/30/18 Lunch Ordered Assessment/Plan - Assessment and Plan (Free Text) Assessment: Patient is a 53 y/o M with PMHx HIV (not on HAART), COPD, CHF-rEF (ECHO on 05/10 showing EF 39% with septal hypokinesis), Biventricular HF, CAD s/p PCI, DM, HTN, HLD who presented to [facility] for worsening shortness of breath for 5 days in duration. Patient admitted and treated for COPD vs CHF exacerbation with fluid overload. ICU was consulted for evaluation of suspected upper GI bleed with new onset anemia requiring multiple blood transfusions with a component of Hepatic Encephalopathy. Plan: Neuro: - Consider hepatic encephalopathy - Currently AAOx3 on interview but as prior documentation, patient has episodes of confusion and waxing/waning - Ammonia level is mildly elevated at 49 - Hx of HIV (not on HAART) with recent CD4 count 361 Pulm: - Treated for COPD vs CHF exacerbation with fluid overload on the floor - Shallow breathing with hypercapnia on ABG. Placed on BiPAP. Repeated abg. - Maintain SaO2 > 92% - c/w Lasix 40mg IVP - Monitor ins/outs - CXR (08/29): small R-pleural effusion consistent with CHF Cardio: - Started on dobutamine @ rate of 2.5 given Hx of Biventricular HF and multiple cardiac comorbidities - Avoid aggressive hydration due to significant HF - Maintain MAP > 65 - trop negative - Cardio is on consult. Follow up recommendations. - Hx CHF-rEF, Biventricular HF, HTN, DM, CAD (s/p PCI), HLD GI: - Upper GI bleed with component of hepatic encephalopathy - pending Endoscopy to r/o variceal bleed - Patient is not in hemorrhagic shock - c/w cbc q6, cmp, repeat ammonia level, protonix drip, octreotide drip, ceftriaxone, two large bore IV in place, and plan for endoscopy today at 1pm - BUN elevated on prior chemistry also suggestive of GI bleed - stool occult positive and melena with clots on exam - Surgery consulted. Follow up recommendations - GI is on consult. Recommendations appreciated. - Abdominal US (08/26): hepatomegaly and cirrhotic appearing liver - Hep panel negative - NPO Heme: - INR was 2.17 on 08/25; repeat INR is 1.41. Administered vitamin K. Patient not on blood thinners. Consider underlying cirrhosis or liver disease - Transfused x4 pRBCs during hospital course. Hgb was 6.9; patient did not respond adequately given the number of transfusions. He will be transfused another x2 units pRBCs prior to endoscopy today. FFP also on hold. - Lactate is wnl - monitor H/H - DVT ppx with SCDs Renal: - Albumin given - BUN elevated likely due to GI bleed - Lugo catheter placed - Monitor strict Ins/outs Endo: - ISS (high) - Accuchecks q4 - Maintain blood glucose within 140-180 range as per [employer] trial ID: - Currently afebrile with no leukocytosis. - ceftriaxone 1g daily for GI bleed - ID is on consult. Follow up recommendations. Dispo: Plan for endoscopy today at 1pm. Follow up further recommendations as per GI, Surgery, and Cardiology. Case was discussed and reviewed with Attending Physician, Dr. Mcwilliams <Randall Mcwilliams - Last Filed: 08/31/18 16:26> CCU Objective - Vital Signs / Intake & Output Vital Signs (Last 4 hours): Vital Signs Temp Pulse Resp BP Pulse Ox 08/31/18 15:00 98.4 F 116 H 15 111/66 08/31/18 14:54 120 H 20 131/66 100 08/31/18 14:51 92 H 15 137/54 L 100 08/31/18 14:48 93 H 15 123/61 100 08/31/18 14:45 92 H 14 119/58 L 100 08/31/18 14:43 96 H 21 122/58 L 100 08/31/18 14:00 89 14 99/38 L 100 08/31/18 13:32 97.6 F 75 12 100/40 L 08/31/18 13:31 100/40 L 08/31/18 13:00 101 H 39 H 119/56 L 95 08/31/18 12:49 97.6 F 101 H 12 119/56 L 08/31/18 12:32 98.4 F 101 H 11 L 92/49 L 08/31/18 12:30 95 H 16 92/49 L 100 Intake and Output (Last 8hrs): Intake & Output 08/31/18 08/31/18 08/31/18 06:59 14:59 22:59 Intake Total 1475 0 371 Balance 1475 0 371 Weight 263 lb 4.8 oz Intake: IV 500 6 Left Antecubital 250 Left Thumb 250 Blood Product 975 0 325 Red Blood Cells Cpd As1 0 325 Lr Unit [id number] Other 40 Red Blood Cells Cpd As1 40 Lr Unit [id number] Other: # Bowel Movements 1 - Medications Active Medications: Active Medications Generic Name Dose Route Start Last Admin Trade Name Freq PRN Reason Stop Dose Admin Albumin Human 12.5 gm 08/31/18 08:00 08/31/18 11:59 Albumin Human 25% (12.5 Gm/50 Ml) IV 12.5 gm Q4H TRAVIS Administration Albuterol/Ipratropium 3 ml 08/26/18 02:00 08/31/18 14:18 Duoneb 3 Mg/0.5 Mg (3 Ml) Ud IH 3 ml [id number] TRAVIS Administration Albuterol/Ipratropium 3 ml 08/25/18 20:01 08/25/18 23:35 Duoneb 3 Mg/0.5 Mg (3 Ml) Ud IH 3 ml Q2H PRN Administration Shortness of Breath Atorvastatin Calcium 80 mg 08/25/18 20:15 08/30/18 20:22 Lipitor PO Not Given DIN TRAVIS Carvedilol 12.5 mg 08/25/18 21:15 08/30/18 11:14 Coreg PO 12.5 mg BID TRAVIS Administration Docusate Sodium 100 mg 08/26/18 10:00 08/31/18 09:45 Colace PO Not Given BID TRAVIS Furosemide 40 mg 08/30/18 10:00 08/31/18 09:44 Lasix IVP 40 mg DAILY TRAVIS Administration Glipizide 5 mg 08/29/18 10:45 08/31/18 07:45 Glucotrol PO Not Given ACB TRAVIS Pantoprazole Sodium 40 mg in 100 mls @ 20 mls/hr 08/30/18 15:00 08/31/18 13:04 Protonix 40mg Ivpb IVPB 20 mls/hr .Q5H TRAVIS Administration Ceftriaxone Sodium 1 gm in 100 mls @ 100 mls/hr 08/31/18 10:00 08/31/18 09:46 Rocephin 1 Gram Ivpb IVPB 100 mls/hr DAILY TRAVIS Administration Protocol Dobutamine HCl/Dextrose 500 mg in 250 mls @ 8.957 mls/hr 08/31/18 08:36 08/31/18 09:46 Dobutamine/Dextrose 5% 500mg/250ml IV 2.5 mcg/kg/min .Q24H PRN 8.957 mls/hr TITRATE PER PROTOCOL Administration Protocol 2.5 MCG/KG/MIN Propofol 1,000 mg in 100 mls @ 3.583 mls/hr 08/31/18 15:17 08/31/18 16:02 Diprivan IV 20 mcg/kg/min .Q24H PRN 14.332 mls/hr TITRATE PER MD ORDER Titration Protocol 5 MCG/KG/MIN Insulin Human Lispro 0 units 08/31/18 08:00 08/31/18 12:00 Humalog High SC 4 units Q4 TRAVIS Administration Protocol Lactulose 20 gm 08/31/18 14:00 08/31/18 14:00 Enulose PO Not Given TID TRAVIS Losartan Potassium 25 mg 08/27/18 12:30 08/30/18 11:14 Cozaar PO 25 mg DAILY TRAVIS Administration Methylprednisolone 40 mg 08/29/18 10:00 08/31/18 09:45 Solu-Medrol IVP 40 mg DAILY TRAVIS Administration Rifaximin 550 mg 08/31/18 10:00 08/31/18 10:30 Xifaxan PO Not Given BID [facility] Protocol - Patient Studies Lab Studies: Microbiology Studies 08/25/18 17:30 Blood Culture - Final Blood-Venous NO GROWTH AFTER 5 DAYS Gram Stain - Final TEST NOT PERFORMED 08/25/18 16:40 Blood Culture - Final Blood-Venous NO GROWTH AFTER 5 DAYS Gram Stain - Final TEST NOT PERFORMED Lab Studies 08/31/18 08/31/18 08/31/18 Range/Units 14:00 10:40 10:40 WBC (4.5-11.0) 10^3/uL RBC (3.5-6.1) 10^6/uL Hgb (14.0-18.0) g/dL Hct (42.0-52.0) % MCV (80.0-105.0) fl MCH (25.0-35.0) pg MCHC (31.0-37.0) g/dl RDW (11.5-14.5) % Plt Count (120.0-450.0) 10^3/uL MPV (7.0-11.0) fl Gran % (50.0-68.0) % Lymph % (Auto) (22.0-35.0) % Griggs % (Auto) (1.0-6.0) % Eos % (Auto) (1.5-5.0) % Baso % (Auto) (0.0-3.0) % Gran # (1.4-6.5) Lymph # (Auto) (1.2-3.4) Griggs # (Auto) (0.1-0.6) Eos # (Auto) (0.0-0.7) Baso # (Auto) (0.0-2.0) K/mm3 PT (9.4-12.5) SECONDS INR pCO2 (35-45) mm/Hg pO2 49 51 (80-100) mm/Hg HCO3 (21-28) mmol/L ABG pH (7.35-7.45) ABG Total CO2 (22-28) mmol.L ABG O2 Saturation (95-98) % ABG Base Excess (-2.0-3.0) mmol/L ABG Potassium (3.6-5.2) mmol/L VBG pH 7.53 H 7.38 (7.32-7.43) VBG pCO2 47.0 72.0 H* (40-60) VBG HCO3 39.3 H 42.6 H (21-28) mmol/l VBG Total CO2 40.7 H 44.8 H (22-28) mmol.L VBG O2 Sat (Calc) 93.2 H 92.5 H (40-65) % VBG Base Excess 14.6 H 14.0 H (0.0-2.0) mmol/L VBG Potassium 4.1 4.0 (3.6-5.2) mmol/L Sodium 149.0 H 148.0 (132-148) mmol/L Chloride 110.0 H 109.0 H (98-107) mmol/L Glucose 234 H 268 H (75-110) mg/dl Lactate 3.3 H 2.6 H (0.7-2.1) mmol/L FiO2 21.0 21.0 % Potassium (3.6-5.0) mmol/L Carbon Dioxide (21-33) mmol/L Anion Gap (10-20) BUN (7-21) mg/dL Creatinine (0.8-1.5) mg/dl Est GFR ( Amer) Est GFR (Non-Af Amer) Random Glucose (70-110) mg/dL Lactic Acid (0.7-2.1) mmol/L Calcium (8.4-10.5) mg/dL Total Bilirubin (0.2-1.3) mg/dL AST (17-59) U/L ALT (7-56) U/L Alkaline Phosphatase (38-126) U/L Ammonia 66 H (9-33) umol/L Troponin I ng/mL Total Protein (5.8-8.3) g/dL Albumin (3.0-4.8) g/dL Globulin gm/dL Albumin/Globulin Ratio (1.1-1.8) Arterial Blood Potassium (3.6-5.2) mmol/L Venous Blood Potassium 4.1 4.0 (3.6-5.2) mmol/L Blood Type Antibody Screen Crossmatch BBK History Checked 08/31/18 08/31/18 08/31/18 Range/Units 10:40 10:40 10:40 WBC 17.2 H D (4.5-11.0) 10^3/uL RBC 2.75 L (3.5-6.1) 10^6/uL Hgb 6.9 L* (14.0-18.0) g/dL Hct 21.4 L (42.0-52.0) % MCV 77.8 L (80.0-105.0) fl MCH 25.1 (25.0-35.0) pg MCHC 32.2 (31.0-37.0) g/dl RDW 17.9 H (11.5-14.5) % Plt Count 131 (120.0-450.0) 10^3/uL MPV 9.3 (7.0-11.0) fl Gran % 70.5 H (50.0-68.0) % Lymph % (Auto) 22.3 (22.0-35.0) % Griggs % (Auto) 7.0 H (1.0-6.0) % Eos % (Auto) 0.1 L (1.5-5.0) % Baso % (Auto) 0.1 (0.0-3.0) % Gran # 12.11 H (1.4-6.5) Lymph # (Auto) 3.8 H (1.2-3.4) Griggs # (Auto) 1.2 H (0.1-0.6) Eos # (Auto) 0.0 (0.0-0.7) Baso # (Auto) 0.01 (0.0-2.0) K/mm3 PT 13.5 H (9.4-12.5) SECONDS INR 1.17 pCO2 (35-45) mm/Hg pO2 (80-100) mm/Hg HCO3 (21-28) mmol/L ABG pH (7.35-7.45) ABG Total CO2 (22-28) mmol.L ABG O2 Saturation (95-98) % ABG Base Excess (-2.0-3.0) mmol/L ABG Potassium (3.6-5.2) mmol/L VBG pH (7.32-7.43) VBG pCO2 (40-60) VBG HCO3 (21-28) mmol/l VBG Total CO2 (22-28) mmol.L VBG O2 Sat (Calc) (40-65) % VBG Base Excess (0.0-2.0) mmol/L VBG Potassium (3.6-5.2) mmol/L Sodium (132-148) mmol/L Chloride (98-107) mmol/L Glucose (75-110) mg/dl Lactate (0.7-2.1) mmol/L FiO2 % Potassium (3.6-5.0) mmol/L Carbon Dioxide (21-33) mmol/L Anion Gap (10-20) BUN (7-21) mg/dL Creatinine (0.8-1.5) mg/dl Est GFR ( Amer) Est GFR (Non-Af Amer) Random Glucose (70-110) mg/dL Lactic Acid 2.5 H (0.7-2.1) mmol/L Calcium (8.4-10.5) mg/dL Total Bilirubin (0.2-1.3) mg/dL AST (17-59) U/L ALT (7-56) U/L Alkaline Phosphatase (38-126) U/L Ammonia (9-33) umol/L Troponin I ng/mL Total Protein (5.8-8.3) g/dL Albumin (3.0-4.8) g/dL Globulin gm/dL Albumin/Globulin Ratio (1.1-1.8) Arterial Blood Potassium (3.6-5.2) mmol/L Venous Blood Potassium (3.6-5.2) mmol/L Blood Type Antibody Screen Crossmatch BBK History Checked 08/31/18 08/31/18 08/31/18 Range/Units 10:40 08:15 01:45 WBC 12.8 H (4.5-11.0) 10^3/uL RBC 2.30 L (3.5-6.1) 10^6/uL Hgb 5.4 L* (14.0-18.0) g/dL Hct 17.3 L* (42.0-52.0) % MCV 75.2 L D (80.0-105.0) fl MCH 23.5 L (25.0-35.0) pg MCHC 31.2 (31.0-37.0) g/dl RDW 18.7 H (11.5-14.5) % Plt Count 154 (120.0-450.0) 10^3/uL MPV 9.6 (7.0-11.0) fl Gran % 65.3 (50.0-68.0) % Lymph % (Auto) 27.4 (22.0-35.0) % Griggs % (Auto) 7.2 H (1.0-6.0) % Eos % (Auto) 0.0 L (1.5-5.0) % Baso % (Auto) 0.1 (0.0-3.0) % Gran # 8.38 H (1.4-6.5) Lymph # (Auto) 3.5 H (1.2-3.4) Griggs # (Auto) 0.9 H (0.1-0.6) Eos # (Auto) 0.0 (0.0-0.7) Baso # (Auto) 0.01 (0.0-2.0) K/mm3 PT (9.4-12.5) SECONDS INR pCO2 73 H* (35-45) mm/Hg pO2 87.0 (80-100) mm/Hg HCO3 40.3 H* (21-28) mmol/L ABG pH 7.35 (7.35-7.45) ABG Total CO2 42.5 H (22-28) mmol.L ABG O2 Saturation 98.3 H (95-98) % ABG Base Excess 11.4 H (-2.0-3.0) mmol/L ABG Potassium 3.8 (3.6-5.2) mmol/L VBG pH (7.32-7.43) VBG pCO2 (40-60) VBG HCO3 (21-28) mmol/l VBG Total CO2 (22-28) mmol.L VBG O2 Sat (Calc) (40-65) % VBG Base Excess (0.0-2.0) mmol/L VBG Potassium (3.6-5.2) mmol/L Sodium 147 147.0 (132-148) mmol/L Chloride 106 109.0 H (98-107) mmol/L Glucose 276 H (75-110) mg/dl Lactate 2.0 (0.7-2.1) mmol/L FiO2 28.0 % Potassium 4.1 (3.6-5.0) mmol/L Carbon Dioxide 38 H (21-33) mmol/L Anion Gap 7 L (10-20) BUN 74 H (7-21) mg/dL Creatinine 0.8 (0.8-1.5) mg/dl Est GFR ( Amer) > 60 Est GFR (Non-Af Amer) > 60 Random Glucose 247 H (70-110) mg/dL Lactic Acid (0.7-2.1) mmol/L Calcium 7.5 L (8.4-10.5) mg/dL Total Bilirubin 0.7 (0.2-1.3) mg/dL AST 39 (17-59) U/L ALT 40 (7-56) U/L Alkaline Phosphatase 154 H D (38-126) U/L Ammonia (9-33) umol/L Troponin I ng/mL Total Protein 5.6 L (5.8-8.3) g/dL Albumin 2.2 L (3.0-4.8) g/dL Globulin 3.4 gm/dL Albumin/Globulin Ratio 0.6 L (1.1-1.8) Arterial Blood Potassium 3.8 (3.6-5.2) mmol/L Venous Blood Potassium (3.6-5.2) mmol/L Blood Type Antibody Screen Crossmatch BBK History Checked 08/30/18 08/30/18 08/30/18 Range/Units 20:50 20:50 16:33 WBC (4.5-11.0) 10^3/uL RBC (3.5-6.1) 10^6/uL Hgb (14.0-18.0) g/dL Hct (42.0-52.0) % MCV (80.0-105.0) fl MCH (25.0-35.0) pg MCHC (31.0-37.0) g/dl RDW (11.5-14.5) % Plt Count (120.0-450.0) 10^3/uL MPV (7.0-11.0) fl Gran % (50.0-68.0) % Lymph % (Auto) (22.0-35.0) % [place] % (Auto) (1.0-6.0) % Eos % (Auto) (1.5-5.0) % Baso % (Auto) (0.0-3.0) % Gran # (1.4-6.5) Lymph # (Auto) (1.2-3.4) [place] # (Auto) (0.1-0.6) Eos # (Auto) (0.0-0.7) Baso # (Auto) (0.0-2.0) K/mm3 PT (9.4-12.5) SECONDS INR pCO2 (35-45) mm/Hg pO2 (80-100) mm/Hg HCO3 (21-28) mmol/L ABG pH (7.35-7.45) ABG Total CO2 (22-28) mmol.L ABG O2 Saturation (95-98) % ABG Base Excess (-2.0-3.0) mmol/L ABG Potassium (3.6-5.2) mmol/L VBG pH (7.32-7.43) VBG pCO2 (40-60) VBG HCO3 (21-28) mmol/l VBG Total CO2 (22-28) mmol.L VBG O2 Sat (Calc) (40-65) % VBG Base Excess (0.0-2.0) mmol/L VBG Potassium (3.6-5.2) mmol/L Sodium (132-148) mmol/L Chloride (98-107) mmol/L Glucose (75-110) mg/dl Lactate (0.7-2.1) mmol/L FiO2 % Potassium (3.6-5.0) mmol/L Carbon Dioxide (21-33) mmol/L Anion Gap (10-20) BUN (7-21) mg/dL Creatinine (0.8-1.5) mg/dl Est GFR ( Amer) Est GFR (Non-Af Amer) Random Glucose (70-110) mg/dL Lactic Acid 2.0 (0.7-2.1) mmol/L Calcium (8.4-10.5) mg/dL Total Bilirubin (0.2-1.3) mg/dL AST (17-59) U/L ALT (7-56) U/L Alkaline Phosphatase (38-126) U/L Ammonia 49 H (9-33) umol/L Troponin I 0.05 ng/mL Total Protein (5.8-8.3) g/dL Albumin (3.0-4.8) g/dL Globulin gm/dL Albumin/Globulin Ratio (1.1-1.8) Arterial Blood Potassium (3.6-5.2) mmol/L Venous Blood Potassium (3.6-5.2) mmol/L Blood Type Antibody Screen Crossmatch BBK History Checked 08/30/18 08/30/18 Range/Units 16:33 10:35 WBC (4.5-11.0) 10^3/uL RBC (3.5-6.1) 10^6/uL Hgb (14.0-18.0) g/dL Hct (42.0-52.0) % MCV (80.0-105.0) fl MCH (25.0-35.0) pg MCHC (31.0-37.0) g/dl RDW (11.5-14.5) % Plt Count (120.0-450.0) 10^3/uL MPV (7.0-11.0) fl Gran % (50.0-68.0) % Lymph % (Auto) (22.0-35.0) % [place] % (Auto) (1.0-6.0) % Eos % (Auto) (1.5-5.0) % Baso % (Auto) (0.0-3.0) % Gran # (1.4-6.5) Lymph # (Auto) (1.2-3.4) [place] # (Auto) (0.1-0.6) Eos # (Auto) (0.0-0.7) Baso # (Auto) (0.0-2.0) K/mm3 PT 16.2 H (9.4-12.5) SECONDS INR 1.41 pCO2 (35-45) mm/Hg pO2 (80-100) mm/Hg HCO3 (21-28) mmol/L ABG pH (7.35-7.45) ABG Total CO2 (22-28) mmol.L ABG O2 Saturation (95-98) % ABG Base Excess (-2.0-3.0) mmol/L ABG Potassium (3.6-5.2) mmol/L VBG pH (7.32-7.43) VBG pCO2 (40-60) VBG HCO3 (21-28) mmol/l VBG Total CO2 (22-28) mmol.L VBG O2 Sat (Calc) (40-65) % VBG Base Excess (0.0-2.0) mmol/L VBG Potassium (3.6-5.2) mmol/L Sodium (132-148) mmol/L Chloride (98-107) mmol/L Glucose (75-110) mg/dl Lactate (0.7-2.1) mmol/L FiO2 % Potassium (3.6-5.0) mmol/L Carbon Dioxide (21-33) mmol/L Anion Gap (10-20) BUN (7-21) mg/dL Creatinine (0.8-1.5) mg/dl Est GFR ( Amer) Est GFR (Non-Af Amer) Random Glucose (70-110) mg/dL Lactic Acid (0.7-2.1) mmol/L Calcium (8.4-10.5) mg/dL Total Bilirubin (0.2-1.3) mg/dL AST (17-59) U/L ALT (7-56) U/L Alkaline Phosphatase (38-126) U/L Ammonia (9-33) umol/L Troponin I ng/mL Total Protein (5.8-8.3) g/dL Albumin (3.0-4.8) g/dL Globulin gm/dL Albumin/Globulin Ratio (1.1-1.8) Arterial Blood Potassium (3.6-5.2) mmol/L Venous Blood Potassium (3.6-5.2) mmol/L Blood Type A POSITIVE Antibody Screen Negative Crossmatch See Detail BBK History Checked Patient has bt Laboratory Results - last 24 hr 08/30/18 08/30/18 08/30/18 10:35 16:33 16:33 WBC RBC Hgb Hct MCV MCH MCHC RDW Plt Count MPV Gran % Lymph % (Auto) [place] % (Auto) Eos % (Auto) Baso % (Auto) Gran # Lymph # (Auto) [place] # (Auto) Eos # (Auto) Baso # (Auto) PT 16.2 H INR 1.41 pCO2 pO2 HCO3 ABG pH ABG Total CO2 ABG O2 Saturation ABG Base Excess ABG Potassium VBG pH VBG pCO2 VBG HCO3 VBG Total CO2 VBG O2 Sat (Calc) VBG Base Excess VBG Potassium Sodium Chloride Glucose Lactate FiO2 Potassium Carbon Dioxide Anion Gap BUN Creatinine Est GFR ( Amer) Est GFR (Non-Af Amer) Random Glucose Lactic Acid Calcium Total Bilirubin AST ALT Alkaline Phosphatase Ammonia 49 H Troponin I Total Protein Albumin Globulin Albumin/Globulin Ratio Arterial Blood Potassium Venous Blood Potassium Blood Type A POSITIVE Antibody Screen Negative Crossmatch See Detail BBK History Checked Patient has bt 08/30/18 08/30/18 08/31/18 20:50 20:50 01:45 WBC 12.8 H RBC 2.30 L Hgb 5.4 L* Hct 17.3 L* MCV 75.2 L D MCH 23.5 L MCHC 31.2 RDW 18.7 H Plt Count 154 MPV 9.6 Gran % 65.3 Lymph % (Auto) 27.4 [place] % (Auto) 7.2 H Eos % (Auto) 0.0 L Baso % (Auto) 0.1 Gran # 8.38 H Lymph # (Auto) 3.5 H [place] # (Auto) 0.9 H Eos # (Auto) 0.0 Baso # (Auto) 0.01 PT INR pCO2 pO2 HCO3 ABG pH ABG Total CO2 ABG O2 Saturation ABG Base Excess ABG Potassium VBG pH VBG pCO2 VBG HCO3 VBG Total CO2 VBG O2 Sat (Calc) VBG Base Excess VBG Potassium Sodium Chloride Glucose Lactate FiO2 Potassium Carbon Dioxide Anion Gap BUN Creatinine Est GFR ( Amer) Est GFR (Non-Af Amer) Random Glucose Lactic Acid 2.0 Calcium Total Bilirubin AST ALT Alkaline Phosphatase Ammonia Troponin I 0.05 Total Protein Albumin Globulin Albumin/Globulin Ratio Arterial Blood Potassium Venous Blood Potassium Blood Type Antibody Screen Crossmatch BBK History Checked 08/31/18 08/31/18 08/31/18 08:15 10:40 10:40 WBC RBC Hgb Hct MCV MCH MCHC RDW Plt Count MPV Gran % Lymph % (Auto) [place] % (Auto) Eos % (Auto) Baso % (Auto) Gran # Lymph # (Auto) [place] # (Auto) Eos # (Auto) Baso # (Auto) PT 13.5 H INR 1.17 pCO2 73 H* pO2 87.0 HCO3 40.3 H* ABG pH 7.35 ABG Total CO2 42.5 H ABG O2 Saturation 98.3 H ABG Base Excess 11.4 H ABG Potassium 3.8 VBG pH VBG pCO2 VBG HCO3 VBG Total CO2 VBG O2 Sat (Calc) VBG Base Excess VBG Potassium Sodium 147.0 147 Chloride 109.0 H 106 Glucose 276 H Lactate 2.0 FiO2 28.0 Potassium 4.1 Carbon Dioxide 38 H Anion Gap 7 L BUN 74 H Creatinine 0.8 Est GFR ( Amer) > 60 Est GFR (Non-Af Amer) > 60 Random Glucose 247 H Lactic Acid Calcium 7.5 L Total Bilirubin 0.7 AST 39 ALT 40 Alkaline Phosphatase 154 H D Ammonia Troponin I Total Protein 5.6 L Albumin 2.2 L Globulin 3.4 Albumin/Globulin Ratio 0.6 L Arterial Blood Potassium 3.8 Venous Blood Potassium Blood Type Antibody Screen Crossmatch BBK History Checked 08/31/18 08/31/18 08/31/18 10:40 10:40 10:40 WBC 17.2 H D RBC 2.75 L Hgb 6.9 L* Hct 21.4 L MCV 77.8 L MCH 25.1 MCHC 32.2 RDW 17.9 H Plt Count 131 MPV 9.3 Gran % 70.5 H Lymph % (Auto) 22.3 [place] % (Auto) 7.0 H Eos % (Auto) 0.1 L Baso % (Auto) 0.1 Gran # 12.11 H Lymph # (Auto) 3.8 H [place] # (Auto) 1.2 H Eos # (Auto) 0.0 Baso # (Auto) 0.01 PT INR pCO2 pO2 HCO3 ABG pH ABG Total CO2 ABG O2 Saturation ABG Base Excess ABG Potassium VBG pH VBG pCO2 VBG HCO3 VBG Total CO2 VBG O2 Sat (Calc) VBG Base Excess VBG Potassium Sodium Chloride Glucose Lactate FiO2 Potassium Carbon Dioxide Anion Gap BUN Creatinine Est GFR ( Amer) Est GFR (Non-Af Amer) Random Glucose Lactic Acid 2.5 H Calcium Total Bilirubin AST ALT Alkaline Phosphatase Ammonia 66 H Troponin I Total Protein Albumin Globulin Albumin/Globulin Ratio Arterial Blood Potassium Venous Blood Potassium Blood Type Antibody Screen Crossmatch BBK History Checked 08/31/18 08/31/18 10:40 14:00 WBC RBC Hgb Hct MCV MCH MCHC RDW Plt Count MPV Gran % Lymph % (Auto) [place] % (Auto) Eos % (Auto) Baso % (Auto) Gran # Lymph # (Auto) [place] # (Auto) Eos # (Auto) Baso # (Auto) PT INR pCO2 pO2 51 49 HCO3 ABG pH ABG Total CO2 ABG O2 Saturation ABG Base Excess ABG Potassium VBG pH 7.38 7.53 H VBG pCO2 72.0 H* 47.0 VBG HCO3 42.6 H 39.3 H VBG Total CO2 44.8 H 40.7 H VBG O2 Sat (Calc) 92.5 H 93.2 H VBG Base Excess 14.0 H 14.6 H VBG Potassium 4.0 4.1 Sodium 148.0 149.0 H Chloride 109.0 H 110.0 H Glucose 268 H 234 H Lactate 2.6 H 3.3 H FiO2 21.0 21.0 Potassium Carbon Dioxide Anion Gap BUN Creatinine Est GFR ( Amer) Est GFR (Non-Af Amer) Random Glucose Lactic Acid Calcium Total Bilirubin AST ALT Alkaline Phosphatase Ammonia Troponin I Total Protein Albumin Globulin Albumin/Globulin Ratio Arterial Blood Potassium Venous Blood Potassium 4.0 4.1 Blood Type Antibody Screen Crossmatch BBK History Checked Radiology Impressions: Radiology Impressions Abdomen Ultrasound 08/30/18 15:20 IMPRESSION: 1. Patent portal vein with hepatopetal flow. 2. Trace amount of ascites. 3. Limited study. Chest X-Ray 08/31/18 05:54 IMPRESSION: No change in left lower lobe atelectasis/pneumonia/effusion. Moderate pulmonary venous congestion and question of layering right pleural effusion. Chest X-Ray 08/31/18 15:27 IMPRESSION: Limited portable examination with patient rotation to the left. Endotracheal tube terminates 5 cm proximal to the abdi. Suspect developing pulmonary edema and pleural effusions. Critical Care Progress Note - Nutrition Nutrition: Nutrition Category Date Time Status NPO Diet [DIET] Diets 08/30/18 Lunch Ordered Attending/Attestation - Attestation I have personally seen and examined this patient.: Yes I have fully participated in the care of the patient.: Yes I have reviewed all pertinent clinical information: Yes Notes (Text): 08/31/18 16:[address] Mcwilliams note
--- NOTE | 2018-08-31 09:29 | RAD ---
Date of service: 08/31/2018 HISTORY: CHF COMPARISON: 08/29/2018 FINDINGS: LUNGS: The right lung is well inflated and clear. There is mild pulmonary venous congestion. There is persistent airspace disease in the left lower lobe. PLEURA: Suspect left pleural effusion. Question of layering right pleural effusion. No pneumothorax. CARDIOVASCULAR: There is moderate cardiomegaly. No aortic atherosclerotic calcification present. OSSEOUS STRUCTURES: Within normal limits for the patient's age. VISUALIZED UPPER ABDOMEN: Normal. OTHER FINDINGS: None. IMPRESSION: No change in left lower lobe atelectasis/pneumonia/effusion. Moderate pulmonary venous congestion and question of layering right pleural effusion.
[2018-08-31] MEDS: MethylPREDNISolone 40 mg Vial IVP SCH (09:45)
[2018-08-31] MEDS: POLYETHYLENE GLYCOL 3350 17 GM/Dose PACKET PO SCH (09:46)
[2018-08-31] MEDS ORDERED: cefTRIAXone 1 gm 1 GM/100 ML BAG IVPB SCH (10:00)
[2018-08-31 10:49] LABS: VENOUS BLOOD GAS PO2 51 mm/Hg (30-55); VENOUS BLOOD PH 7.38 (7.32-7.43)
[2018-08-31 10:55] LABS: INR 1.17; PROTHROMBIN TIME 13.5 SECONDS (9.4-12.5)
[2018-08-31 10:58] LABS: BASO # 0.01 K/mm3 (0.0-2.0); BASO % 0.1 % (0.0-3.0); EOS % 0.1 % (1.5-5.0); GRAN # 12.11 (1.4-6.5); GRAN % 70.5 % (50.0-68.0); LYMPH # 3.8 (1.2-3.4); LYMPH % 22.3 % (22.0-35.0); MEAN CELL VOLUME 77.8 fl (80.0-105.0); MEAN CORPUSCULAR HEMOGLOBIN 25.1 pg (25.0-35.0); MEAN CORPUSCULAR HGB CONC 32.2 g/dl (31.0-37.0); MEAN PLATELET VOLUME 9.3 fl (7.0-11.0); MONO # 1.2 (0.1-0.6); RBC 2.75 10^6/uL (3.5-6.1); RED CELL DISTRIBUTION WIDTH 17.9 % (11.5-14.5); WHITE BLOOD COUNT 17.2 10^3/uL (4.5-11.0)
[2018-08-31 11:00] LABS: HEMOGLOBIN 6.9 g/dL (14.0-18.0)
[2018-08-31 11:01] LABS: ALB/GLOB RATIO 0.6 (1.1-1.8); ALBUMIN 2.2 g/dL (3.0-4.8); ALT/SGPT 40 U/L (7-56); AST/SGOT 39 U/L (17-59); BLOOD UREA NITROGEN 74 mg/dL (7-21); CALCIUM 7.5 mg/dL (8.4-10.5); GFR NON-AFRICAN AMERICAN > 60
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
[2018-08-31] MEDS ORDERED: Insulin Reg-MEDIUM-Coverage SC SCH (12:00)
[2018-08-31 14:10] LABS: VENOUS BLOOD GAS BASE EXCESS 14.6 mmol/L (0.0-2.0); VENOUS BLOOD GAS PO2 49 mm/Hg (30-55); VENOUS BLOOD PH 7.53 (7.32-7.43)
--- NOTE | 2018-08-31 14:21 | US ---
PROCEDURE: Portal vein duplex ultrasound. CLINICAL HISTORY: Cirrhosis. Deteriorating liver function. Evaluate for portal vein thrombosis. PHYSICIAN(S): Louis Ramirez M.D. FINDINGS: The exam is very limited by the patient's inability to cooperate The hepatic parenchyma is heterogeneous with nodular margins. This is consistent with cirrhosis. No obvious liver mass is seen on these limited images. The extrahepatic portal vein is patent with hepatopetal flow. Hepatic artery is patent. The visualized central hepatic veins are patent. There is a small amount of ascites around the liver. The spleen was not evaluated. IMPRESSION: 1. Patent portal vein with hepatopetal flow. 2. Trace amount of ascites. 3. Limited study.
--- NOTE | 2018-08-31 14:39 | CP.PCM.PN ---
<Elie Herr - Last Filed: 08/31/18 14:34> Subjective - Date & Time of Evaluation Date of Evaluation: 08/31/18 Time of Evaluation: 08:00 - Subjective Subjective: Elie Herr PGY-1 Progress Note for Hospitalist Service Patient seen and evaluated at bedside. Patient was transferred from remote telemetry to ICU overnight. Patient received 2 units PRBC overnight and was getting 3rd unit at time of evaluation. Patient denies nausea, vomiting, chest pain, leg pain, abdominal pain, cough, BRBPR, hemoptysis, and hematochezia. Objective - Vital Signs/Intake and Output Vital Signs (last 24 hours): Temp Pulse Resp BP Pulse Ox 97.6 F 75 12 100/40 L 95 08/31/18 13:32 08/31/18 13:32 08/31/18 13:32 08/31/18 13:32 08/31/18 08:01 Intake and Output: 08/31/18 08/31/18 06:59 18:59 Intake Total 1475 0 Balance 1475 0 - Medications Medications: Current Medications Albumin Human (Albumin Human 25% (12.5 Gm/50 Ml)) 12.5 gm IV Q4H [facility] Last Admin: 08/31/18 11:59 Dose: 12.5 gm Albuterol/Ipratropium (Duoneb 3 Mg/0.5 Mg (3 Ml) Ud) 3 ml IH [id number] [facility] Last Admin: 08/31/18 14:18 Dose: 3 ml Albuterol/Ipratropium (Duoneb 3 Mg/0.5 Mg (3 Ml) Ud) 3 ml IH Q2H PRN PRN Reason: Shortness of Breath Last Admin: 08/25/18 23:35 Dose: 3 ml Atorvastatin Calcium (Lipitor) 80 mg PO DIN [facility] Last Admin: 08/30/18 20:22 Dose: Not Given Carvedilol (Coreg) 12.5 mg PO BID [facility] Last Admin: 08/30/18 11:14 Dose: 12.5 mg Docusate Sodium (Colace) 100 mg PO BID [facility] Last Admin: 08/31/18 09:45 Dose: Not Given Furosemide (Lasix) 40 mg IVP DAILY [facility] Last Admin: 08/31/18 09:44 Dose: 40 mg Glipizide (Glucotrol) 5 mg PO ACB [facility] Last Admin: 08/31/18 07:45 Dose: Not Given Pantoprazole Sodium (Protonix 40mg Ivpb) 40 mg in 100 mls @ 20 mls/hr IVPB .Q5H [facility] Last Admin: 08/31/18 13:04 Dose: 20 mls/hr Octreotide Acetate 1,250 mcg/ (Dextrose) 252.5 mls @ 5.05 mls/hr IV .Q24H [facility]; Protocol Last Admin: 08/30/18 21:15 Dose: 25 mcg/hr, 5.05 mls/hr Ceftriaxone Sodium (Rocephin 1 Gram Ivpb) 1 gm in 100 mls @ 100 mls/hr IVPB DAILY [facility]; Protocol Last Admin: 08/31/18 09:46 Dose: 100 mls/hr Dobutamine HCl/Dextrose (Dobutamine/Dextrose 5% 500mg/250ml) 500 mg in 250 mls @ 8.957 mls/hr IV .Q24H PRN; Protocol PRN Reason: TITRATE PER PROTOCOL Last Admin: 08/31/18 09:46 Dose: 2.5 mcg/kg/min, 8.957 mls/hr Insulin Human Lispro (Humalog High) 0 units SC Q4 [facility]; Protocol Last Admin: 08/31/18 12:00 Dose: 4 units Lactulose (Enulose) 20 gm PO TID [facility] Losartan Potassium (Cozaar) 25 mg PO DAILY [facility] Last Admin: 08/30/18 11:14 Dose: 25 mg Methylprednisolone (Solu-Medrol) 40 mg IVP DAILY [facility] Last Admin: 08/31/18 09:45 Dose: 40 mg Polyethylene Glycol (Miralax) 17 gm PO DAILY [facility] Last Admin: 08/31/18 09:46 Dose: Not Given Rifaximin (Xifaxan) 550 mg PO BID [facility]; Protocol Last Admin: 08/31/18 10:30 Dose: Not Given - Labs Labs: 08/31/18 10:40 08/31/18 10:40 PT 13.5 SECONDS (9.4-12.5) H 08/31/18 10:40 INR 1.17 08/31/18 10:40 APTT 31.6 Seconds (25.1-36.5) 08/25/18 16:40 - Additional Findings Additional findings: - Constitutional Appears: Well, Non-toxic, No Acute Distress - Head Exam Head Exam: ATRAUMATIC, NORMAL INSPECTION, NORMOCEPHALIC - Eye Exam Eye Exam: EOMI Pupil Exam: PERRL - Respiratory Exam Respiratory Exam: Clear to Auscultation Bilateral, NORMAL BREATHING PATTERN, on NC - Cardiovascular Exam Cardiovascular Exam: REGULAR RHYTHM, +S1+S2 - GI/Abdominal Exam GI & Abdominal Exam: Soft, Normal Bowel Sounds - Extremities Exam Extremities Exam: Full ROM. Chronic vascular epidermal changes to both LEs below knee - Neurological Exam Neurological Exam: Alert, Awake, CN II-XII Intact, Oriented x3 Rectal exam: refused Assessment and Plan - Assessment and Plan (Free Text) Assessment: 53 year old male with past medical history of COPD, diabetes mellitus type II, HTN, HLD, systolic CHF with EF of 39%, CAD with stent, lumbar radiculopathy, gout, and questionable HIV presents with shortness of breath on admission after falling at home. CXR showed cardiomegaly with resolved pulmonary congestion. Echocardiogram from 05/07 showed mild concentric LVH, systolic function moderately impaired, septal hypokinesis, mild MR, moderate TR, mild pulmonary HTN, and aortic root mildly enlarged. Patient was found to be severely anemic yesterday. Repeat Hgb 6.9, and patient is currently being transfused 4th unit. Plan: Severe anemia likely 2/2 UGI bleed vs varices vs ulcer - Hgb 6.9 after 3 units, f/u repeat CBC after 4th unit completed - melena reported - PT/INR 13.5/1.17 - relative thrombocytopenia to 131 compared to baseline, will continue to monitor - Octreotide drip per GI - Abdominal U/S showed patent portal vein, trace ascites. Limited study. -Type and Screen, Transfused 2 units PRBCs overnight - ICU consult placed - Dr. Eduardo - demetria appreciated - GI consult - Dr. Suzie augustin appreciated - EGD planned when medically optimized to r/o Upper GI bleed - Gen Surg consulted - Dr. Vizcarra- for ? UGI bleed- recs appreciated. Hypotension - Hypotensive with BP 104/60, HR 93. Periods of hypotension last night 83/50. - Dobutamine drip and Albumin q4 - continue to monitor Shortness of Breath likely 2/2 to CHF exacerbation -CXR consistent with cardiomegaly, patient has noncompliance with BiPAP -BNP [id number] -Echocardiogram shows mild systolic congestive heart failure with EF of 39% from 04/2018 -For suspected COPD, patient should continue duonebs, azithromycin, and methylprednisolone. Methylprednisolone dose was reduced to 40 mg IVP daily -For suspected CHF, patient should continue with coreg 12.5 mg BID per cardio. Clinically, patient does not have significant lower extremity edema. Patient was ordered Bipap for CHF as well. - f/u cardio consult- Dr. Salgado - Lasix changed to 40 mg IV , FOBT positive Leukocytosis likely 2/2 acute infection -WBC: 17.2 - repeat CXR shows bilateral vascular congestion - Rocephin 1 gm daily - f/u repeat blood cultures - continue to monitor Severe Agitation 2/2 to schizophrenia vs uremic encephalopathy vs. alcohol withdrawal -Abdominal ultrasound suggests hepatocellular disease or cirrhosis. - On Rifaximin 550 mg BID - Ammonia 49 this AM, f/u repeat -Psychiatry consult for other possible causes of agitation such as schizophrenia placed- no psych indication for continued follow up, and delirium may take few weeks to resolve CAD with stent -EKG: Atrial fibrillation, right bundle branch block, HR of 88 -Troponinx3: 0.06, 0.06, 0.05. Unlikely NC. Elevation likely due to CORAZON -Cardiac catheterization in 12/2017 showed LAD lesion 80% -Continue with aspirin, antiHTN meds held -TSH: 2.41, LDL: 75 -ICU monitoring -History of use of life vest CORAZON Cr at baseline -BUN/Cr ratio more than 20:1 so likely prerenal cause, dehydration from repeated administration of lasix for suspected CHF Diabetes mellitus type II -Accuchecks -HgbA1c: 6.9 -Hypoglycemia protocol -HHD with consistent carbohydrate diet on hold, NPO currently -Lispro high, Glipizide held Obstructive Sleep Apnea -Continue with CPAP/BiPap at night Hypertension - coreg, cozaar, and zestril held Constipation -Continue with colace and miralax Hyperlipidemia -Lipid panel unremarkable -Continue with lipitor History of HIV -HIV antibody reactive with 3.33 on PCR GI prophylaxis: Protonix drip in light of GI bleed DVT prophylaxis: heparin 5000 U Q8 held in light of anemia Patient seen, case reviewed and plan approved by Dr. Herman. Elie Herr, PGY-1 <Willy Herman - Last Filed: 08/31/18 16:16> Objective - Vital Signs/Intake and Output Vital Signs (last 24 hours): Temp Pulse Resp BP Pulse Ox 98.4 F 116 H 15 111/66 100 08/31/18 15:00 08/31/18 15:00 08/31/18 15:00 08/31/18 15:00 08/31/18 14:54 Intake and Output: 08/31/18 08/31/18 06:59 18:59 Intake Total 1475 371 Balance 1475 371 - Medications Medications: Current Medications Albumin Human (Albumin Human 25% (12.5 Gm/50 Ml)) 12.5 gm IV Q4H [facility] Last Admin: 08/31/18 11:59 Dose: 12.5 gm Albuterol/Ipratropium (Duoneb 3 Mg/0.5 Mg (3 Ml) Ud) 3 ml IH [id number] [facility] Last Admin: 08/31/18 14:18 Dose: 3 ml Albuterol/Ipratropium (Duoneb 3 Mg/0.5 Mg (3 Ml) Ud) 3 ml IH Q2H PRN PRN Reason: Shortness of Breath Last Admin: 08/25/18 23:35 Dose: 3 ml Atorvastatin Calcium (Lipitor) 80 mg PO DIN [facility] Last Admin: 08/30/18 20:22 Dose: Not Given Carvedilol (Coreg) 12.5 mg PO BID [facility] Last Admin: 08/30/18 11:14 Dose: 12.5 mg Docusate Sodium (Colace) 100 mg PO BID [facility] Last Admin: 08/31/18 09:45 Dose: Not Given Furosemide (Lasix) 40 mg IVP DAILY [facility] Last Admin: 08/31/18 09:44 Dose: 40 mg Glipizide (Glucotrol) 5 mg PO ACB [facility] Last Admin: 08/31/18 07:45 Dose: Not Given Pantoprazole Sodium (Protonix 40mg Ivpb) 40 mg in 100 mls @ 20 mls/hr IVPB .Q5H [facility] Last Admin: 08/31/18 13:04 Dose: 20 mls/hr Ceftriaxone Sodium (Rocephin 1 Gram Ivpb) 1 gm in 100 mls @ 100 mls/hr IVPB DAILY [facility]; Protocol Last Admin: 08/31/18 09:46 Dose: 100 mls/hr Dobutamine HCl/Dextrose (Dobutamine/Dextrose 5% 500mg/250ml) 500 mg in 250 mls @ 8.957 mls/hr IV .Q24H PRN; Protocol PRN Reason: TITRATE PER PROTOCOL Last Admin: 08/31/18 09:46 Dose: 2.5 mcg/kg/min, 8.957 mls/hr Propofol (Diprivan) 1,000 mg in 100 mls @ 3.583 mls/hr IV .Q24H PRN; Protocol PRN Reason: TITRATE PER MD ORDER Last Titration: 08/31/18 16:02 Dose: 20 mcg/kg/min, 14.332 mls/hr Insulin Human Lispro (Humalog High) 0 units SC Q4 [facility]; Protocol Last Admin: 08/31/18 12:00 Dose: 4 units Lactulose (Enulose) 20 gm PO TID [facility] Last Admin: 08/31/18 14:00 Dose: Not Given Losartan Potassium (Cozaar) 25 mg PO DAILY [facility] Last Admin: 08/30/18 11:14 Dose: 25 mg Methylprednisolone (Solu-Medrol) 40 mg IVP DAILY [facility] Last Admin: 08/31/18 09:45 Dose: 40 mg Rifaximin (Xifaxan) 550 mg PO BID [facility]; Protocol Last Admin: 08/31/18 10:30 Dose: Not Given - Labs Labs: 08/31/18 10:40 08/31/18 10:40 PT 13.5 SECONDS (9.4-12.5) H 08/31/18 10:40 INR 1.17 08/31/18 10:40 APTT 31.6 Seconds (25.1-36.5) 08/25/18 16:40 Attending/Attestation - Attestation I have personally seen and examined this patient.: Yes I have fully participated in the care of the patient.: Yes I have reviewed all pertinent clinical information, including history, physical exam and plan: Yes Notes (Text): 53 year old male with past medical history of COPD, diabetes mellitus type II, HTN, HLD, systolic CHF with EF of 39%, CAD with stent, lumbar radiculopathy, gout, and questionable HIV. Acute blood loss anemia GI bleed CHF exacerbation CORAZON DM CHARAN Pt transferred to ICU overnight Hgb remained <6 s/p 2 u transfusion Pt to receive another 2 units today c/w octrotide and protonix GI on board, plan is for EGD today LAsix 40 IV Hold other BP meds for now, given the GI bleed
[2018-08-31] MEDS ORDERED: Propofol 10 mg/ml Inj (20 ML) ONE (14:41)
[2018-08-31] MEDS ORDERED: Etomidate 20 mg/10ml Inj IV ONE (14:42)
[2018-08-31] MEDS ORDERED: Rocuronium 10 mg/ml (5 ml) ONE (14:42)
[2018-08-31] MEDS ORDERED: Propofol 10 mg/ml 1,000 MG/100 ML VIAL IV PRN (15:17)
--- NOTE | 2018-08-31 16:18 | RAD ---
Date of service: 08/31/2018 HISTORY: ET tube placement COMPARISON: 08/31/2018 at 6:52 a.m. FINDINGS: Endotracheal tube terminates 5 cm proximal to the abdi. LUNGS: Limited portable examination with patient rotation to the left. There is interval development of diffuse haziness in the lungs. PLEURA: No pleural effusions or pneumothorax. CARDIOVASCULAR: The heart is normal in size. No aortic atherosclerotic calcification present. OSSEOUS STRUCTURES: Within normal limits for the patient's age. VISUALIZED UPPER ABDOMEN: Normal. OTHER FINDINGS: None. IMPRESSION: Limited portable examination with patient rotation to the left. Endotracheal tube terminates 5 cm proximal to the abdi. Suspect developing pulmonary edema and pleural effusions.
--- NOTE | 2018-08-31 16:41 | CP.PCM.PN ---
Subjective - Date & Time of Evaluation Date of Evaluation: 08/31/18 Time of Evaluation: 10:20 - Subjective Subjective: Patient sent to the ICU because of low hemoglobin, patient also on BiPAP, has shortness of breath at rest, no fevers. Objective - Vital Signs/Intake and Output Vital Signs (last 24 hours): Temp Pulse Resp BP Pulse Ox 97.9 F 84 20 104/63 94 L 08/30/18 06:00 08/30/18 06:00 08/30/18 06:00 08/30/18 06:00 08/30/18 06:00 Intake and Output: 08/30/18 08/30/18 06:59 18:59 Intake Total 120 Balance 120 - Medications Medications: Current Medications Albuterol/Ipratropium (Duoneb 3 Mg/0.5 Mg (3 Ml) Ud) 3 ml IH [id number] [facility] Last Admin: 08/30/18 07:35 Dose: 3 ml Albuterol/Ipratropium (Duoneb 3 Mg/0.5 Mg (3 Ml) Ud) 3 ml IH Q2H PRN PRN Reason: Shortness of Breath Last Admin: 08/25/18 23:35 Dose: 3 ml Atorvastatin Calcium (Lipitor) 80 mg PO DIN [facility] Last Admin: 08/29/18 17:18 Dose: 80 mg Carvedilol (Coreg) 12.5 mg PO BID [facility] Last Admin: 08/29/18 17:18 Dose: 12.5 mg Docusate Sodium (Colace) 100 mg PO BID [facility] Last Admin: 08/29/18 17:18 Dose: 100 mg Furosemide (Lasix) 40 mg IVP DAILY [facility] Glipizide (Glucotrol) 5 mg PO ACB [facility] Last Admin: 08/30/18 08:53 Dose: 5 mg Insulin Human Regular (Humulin R Med) 0 units SC ACHS [facility]; Protocol Last Admin: 08/30/18 08:53 Dose: 3 unit Losartan Potassium (Cozaar) 25 mg PO DAILY [facility] Last Admin: 08/29/18 09:48 Dose: 25 mg Methylprednisolone (Solu-Medrol) 40 mg IVP DAILY [facility] Last Admin: 08/29/18 09:46 Dose: 40 mg Pantoprazole Sodium (Protonix Ec Tab) 40 mg PO DAILY [facility] Last Admin: 08/29/18 09:48 Dose: 40 mg Polyethylene Glycol (Miralax) 17 gm PO DAILY [facility] Last Admin: 08/29/18 09:49 Dose: 17 gm - Labs Labs: 08/30/18 05:50 08/30/18 05:50 PT 25.1 SECONDS (9.4-12.5) H 08/25/18 16:40 INR 2.17 08/25/18 16:40 APTT 31.6 Seconds (25.1-36.5) 08/25/18 16:40 - Constitutional Appears: Chronically Ill - Head Exam Head Exam: NORMAL INSPECTION - Respiratory Exam Respiratory Exam: Decreased Breath Sounds - Cardiovascular Exam Cardiovascular Exam: +S1, +S2 - GI/Abdominal Exam GI & Abdominal Exam: Soft. absent: Tenderness Assessment and Plan - Assessment and Plan (Free Text) Plan: Assessment SIRS due to acute on chronic systolic heart failure, on BiPAP chronic anemia with drop in hemoglobin, etiology to be determined positive HIV PCR and positive 4th generation antibody test, acute versus chronic HIV infection S/P sepsis due to right lower lobe HCAP, S/P treatment with antibiotics obesity with BMI 35 COPD Plan follow up T-cell count - patient will need to be arranged to see an HIV specialist on discharge for further management of HIV ICU managing anemia and respiratory distress will continue to monitor clinically overall prognosis is poor
[2018-08-31 17:13] LABS: ARTERIAL BLOOD GAS HCO3 36.4 mmol/L (21-28); ARTERIAL BLOOD GAS O2 SAT 98.9 % (95-98); ARTERIAL BLOOD GAS PCO2 50 mm/Hg (35-45); ARTERIAL BLOOD GAS PH 7.47 (7.35-7.45); ARTERIAL BLOOD GAS TCO2 37.9 mmol.L (22-28)
[2018-08-31 17:16] LABS: IMMUNOGLOBULIN G 2158.1 mg/dL (700.0-1600.0); IMMUNOGLOBULIN M 145.9 mg/dL (40.0-230.0)
[2018-08-31] MEDS ORDERED: Midazolam 100 mg/100ml in NS 100 MG/100 ML SOL IV PRN (17:16)
[2018-08-31] MEDS ORDERED: Fentanyl 1000mcg/100ml NS 1,000 MCG/100 ML BAG IV PRN (17:16)
[2018-08-31 17:56] LABS: HEMOGLOBIN 7.6 g/dL (14.0-18.0); MEAN CELL VOLUME 78.6 fl (80.0-105.0); MEAN CORPUSCULAR HEMOGLOBIN 25.9 pg (25.0-35.0); MEAN CORPUSCULAR HGB CONC 32.9 g/dl (31.0-37.0); RBC 2.94 10^6/uL (3.5-6.1); RED CELL DISTRIBUTION WIDTH 17.5 % (11.5-14.5); WHITE BLOOD COUNT 11.9 10^3/uL (4.5-11.0)
[2018-08-31 18:02] LABS: INR 1.17; PARTIAL THROMBOPLASTIN TIME 28.4 Seconds (25.1-36.5); PROTHROMBIN TIME 13.4 SECONDS (9.4-12.5)
[2018-08-31 18:09] LABS: ALB/GLOB RATIO 0.7 (1.1-1.8); ALBUMIN 2.2 g/dL (3.0-4.8); ALT/SGPT 33 U/L (7-56); AST/SGOT 35 U/L (17-59); BLOOD UREA NITROGEN 70 mg/dL (7-21); CALCIUM 7.4 mg/dL (8.4-10.5); GFR NON-AFRICAN AMERICAN > 60
[2018-08-31] MEDS ORDERED: Sodium Chloride 0.9% 500 ML IV STA (18:19)
--- NOTE | 2018-08-31 18:35 | PN ---
DATE: 08/31/2018 SUBJECTIVE: The patient was transferred to ICU for rectal bleeding. The patient although he was witnessed to have had rectal bleeding. He denies having any melena. PHYSICAL EXAMINATION: VITAL SIGNS: Blood pressure 100/40, heart rate 75, temperature 97.6, respirations 12. HEENT: Pale conjunctivae. CHEST: Diminished breath sounds at the bases. HEART: S1 and S2 regular. EXTREMITIES: 2+ pitting edema. LABORATORY DATA: Today's hemoglobin and hematocrit are 6.9 and 21.4, white count 17.2 and platelet count 131,000. Today's BUN and creatinine are 74 and 0.8 respectively. Glucose 247. Stool occult blood test positive. ASSESSMENT: 1. Rectal bleeding. 2. Biventricular failure. 3. Altered mental status. 4. Prerenal azotemia. 5. Liver cirrhosis. RECOMMENDATIONS: The patient did receive a total of four units of packed RBC transfusion. Continue current Coreg, Cozaar, intravenous Lasix, IV Rocephin and Solu-Medrol, and start lactulose 20 mg p.o. t.i.d. Beny Salgado MD
[2018-08-31 21:01] LABS: ARTERIAL BLOOD GAS HCO3 38.4 mmol/L (21-28); ARTERIAL BLOOD GAS HEMOGLOBIN 7.1 g/dL (11.7-17.4); ARTERIAL BLOOD GAS O2 CAPACITY 9.9 mL/dl (16-24); ARTERIAL BLOOD GAS O2 CONTENT 9.8 ML/dl (15-23); ARTERIAL BLOOD GAS O2 SAT 98.6 % (95-98); ARTERIAL BLOOD GAS PCO2 54 mm/Hg (35-45); ARTERIAL BLOOD GAS PH 7.46 (7.35-7.45); ARTERIAL BLOOD GAS TCO2 40.1 mmol.L (22-28)
[2018-08-31 21:06] LABS: VENOUS BLOOD GAS BASE EXCESS 12.1 mmol/L (0.0-2.0); VENOUS BLOOD GAS PO2 81 mm/Hg (30-55); VENOUS BLOOD PH 7.44 (7.32-7.43)
[2018-09-01] MEDS: Insulin Lispro (HUMAlog) HIGH Coverage SC SCH ×6 (00:02→21:13)
[2018-09-01] MEDS: Pantoprazole 40mg/100mL NS 40 MG/100 ML BAG IVPB SCH ×5 (00:36→22:21)
[2018-09-01] MEDS: Albumin Human 25% (12.5 gm/50 ml) IV SCH ×6 (00:37→21:12)
[2018-09-01 00:45] LABS: MEAN CELL VOLUME 79.9 fl (80.0-105.0); MEAN CORPUSCULAR HEMOGLOBIN 25.9 pg (25.0-35.0); MEAN CORPUSCULAR HGB CONC 32.4 g/dl (31.0-37.0); MEAN PLATELET VOLUME 9.7 fl (7.0-11.0); RBC 3.09 10^6/uL (3.5-6.1); RED CELL DISTRIBUTION WIDTH 18.1 % (11.5-14.5); WHITE BLOOD COUNT 14.3 10^3/uL (4.5-11.0)
[2018-09-01] MEDS: Albuterol-Ipratrop 3 mg / 0.5 (3 ml) UD IH SCH ×4 (02:18→19:24)
[2018-09-01 06:55] LABS: HEMOGLOBIN 7.3 g/dL (14.0-18.0); MEAN CELL VOLUME 80.8 fl (80.0-105.0); MEAN CORPUSCULAR HEMOGLOBIN 25.5 pg (25.0-35.0); MEAN CORPUSCULAR HGB CONC 31.6 g/dl (31.0-37.0); MEAN PLATELET VOLUME 10.3 fl (7.0-11.0); RBC 2.86 10^6/uL (3.5-6.1); RED CELL DISTRIBUTION WIDTH 18.4 % (11.5-14.5); WHITE BLOOD COUNT 13.2 10^3/uL (4.5-11.0)
[2018-09-01 07:11] LABS: ALB/GLOB RATIO 0.8 (1.1-1.8); ALBUMIN 2.8 g/dL (3.0-4.8); ALT/SGPT 29 U/L (7-56); AST/SGOT 38 U/L (17-59); BLOOD UREA NITROGEN 72 mg/dL (7-21); CALCIUM 8.1 mg/dL (8.4-10.5); GFR NON-AFRICAN AMERICAN > 60
[2018-09-01 07:11] LABS: INR 1.2; PROTHROMBIN TIME 13.8 SECONDS (9.4-12.5)
--- NOTE | 2018-09-01 07:47 | CP.PCM.PN ---
Subjective - Date & Time of Evaluation Date of Evaluation: 09/01/18 Time of Evaluation: 07:47 - Subjective Subjective: Surgery Progress note- Dr. Vizcarra Patient seen and examined at bedside. s/p EGD found to have multiple non- bleeding gastric and duodenal ulcers. This AM patient is AAOx3, GCS 15 non-focal moving all 4 extremities. Patient had one dark melanotic BM yesterday, no clots noted. On protonix ggt. currently s/p total 6uPRBC. Denies current nausea, vomiting, fevers, chills, chest pain, shortness of breath Objective - Vital Signs/Intake and Output Vital Signs (last 24 hours): Temp Pulse Resp BP Pulse Ox 98.9 F 86 6 L 129/73 100 08/31/18 20:00 09/01/18 02:22 08/31/18 20:30 08/31/18 21:30 08/31/18 21:30 Intake and Output: 09/01/18 09/01/18 06:59 18:59 Intake Total 15 Balance 15 - Medications Medications: Current Medications Albumin Human (Albumin Human 25% (12.5 Gm/50 Ml)) 12.5 gm IV Q4H [facility] Last Admin: 09/01/18 05:19 Dose: 12.5 gm Albuterol/Ipratropium (Duoneb 3 Mg/0.5 Mg (3 Ml) Ud) 3 ml IH [id number] [facility] Last Admin: 09/01/18 07:31 Dose: 3 ml Albuterol/Ipratropium (Duoneb 3 Mg/0.5 Mg (3 Ml) Ud) 3 ml IH Q2H PRN PRN Reason: Shortness of Breath Last Admin: 08/25/18 23:35 Dose: 3 ml Atorvastatin Calcium (Lipitor) 80 mg PO DIN [facility] Last Admin: 08/31/18 16:28 Dose: Not Given Carvedilol (Coreg) 12.5 mg PO BID [facility] Last Admin: 08/30/18 11:14 Dose: 12.5 mg Docusate Sodium (Colace) 100 mg PO BID [facility] Last Admin: 08/31/18 17:51 Dose: Not Given Doxycycline Hyclate (Doryx) 100 mg PO Q12 [facility]; Protocol Stop: 09/06/18 10:01 Furosemide (Lasix) 40 mg IVP DAILY [facility] Last Admin: 08/31/18 09:44 Dose: 40 mg Glipizide (Glucotrol) 5 mg PO ACB [facility] Last Admin: 08/31/18 07:45 Dose: Not Given Pantoprazole Sodium (Protonix 40mg Ivpb) 40 mg in 100 mls @ 20 mls/hr IVPB .Q5H [facility] Last Admin: 09/01/18 05:18 Dose: 20 mls/hr Dobutamine HCl/Dextrose (Dobutamine/Dextrose 5% 500mg/250ml) 500 mg in 250 mls @ 8.957 mls/hr IV .Q24H PRN; Protocol PRN Reason: TITRATE PER PROTOCOL Last Admin: 08/31/18 09:46 Dose: 2.5 mcg/kg/min, 8.957 mls/hr Propofol (Diprivan) 1,000 mg in 100 mls @ 3.583 mls/hr IV .Q24H PRN; Protocol PRN Reason: TITRATE PER MD ORDER Last Titration: 08/31/18 18:20 Dose: 0 mcg/kg/min, 0 mls/hr Fentanyl Citrate (Fentanyl Citrate/Sodium Chloride 1 Mg/100 Ml) 1,000 mcg in 100 mls @ 2 mls/hr IV .Q24H PRN; Protocol PRN Reason: TITRATE PER MD ORDER Last Titration: 08/31/18 19:15 Dose: 0 mcg/hr, 0 mls/hr Midazolam 100 mg/100ml in NS (Midazolam 100 Mg/100ml In Ns) 100 mg in 100 mls @ 1 mls/hr IV .Q24H PRN; Protocol PRN Reason: Agitation Last Titration: 08/31/18 19:15 Dose: 0 mg/hr, 0 mls/hr Cefepime HCl (Maxipime 1gm) 1 gm in 100 mls @ 100 mls/hr IVPB Q8 [facility]; Protocol Stop: 09/10/18 14:01 Insulin Human Lispro (Humalog High) 0 units SC Q4 [facility]; Protocol Last Admin: 09/01/18 05:21 Dose: Not Given Lactulose (Enulose) 20 gm PO TID [facility] Last Admin: 08/31/18 17:52 Dose: Not Given Losartan Potassium (Cozaar) 25 mg PO DAILY [facility] Last Admin: 08/30/18 11:14 Dose: 25 mg Methylprednisolone (Solu-Medrol) 40 mg IVP DAILY [facility] Last Admin: 08/31/18 09:45 Dose: 40 mg Rifaximin (Xifaxan) 550 mg PO BID [facility]; Protocol Last Admin: 08/31/18 18:27 Dose: Not Given - Labs Labs: 09/01/18 05:20 09/01/18 05:20 PT 13.8 SECONDS (9.4-12.5) H 09/01/18 06:50 INR 1.20 09/01/18 06:50 APTT 28.4 Seconds (25.1-36.5) 08/31/18 17:50 - Constitutional Appears: Non-toxic, No Acute Distress - Head Exam Head Exam: ATRAUMATIC - Eye Exam Eye Exam: EOMI. absent: Scleral icterus - ENT Exam ENT Exam: Mucous Membranes Moist - Respiratory Exam Respiratory Exam: NORMAL BREATHING PATTERN. absent: Accessory Muscle Use, Respiratory Distress - Cardiovascular Exam Cardiovascular Exam: +S1, +S2. absent: Bradycardia, Tachycardia - GI/Abdominal Exam GI & Abdominal Exam: Distended (mildly distended, pt states size of abdomen is normal), Soft. absent: Firm, Guarding, Rigid, Tenderness - Rectal Exam Rectal Exam: Black Stool - Neurological Exam Neurological Exam: Alert, Awake, Oriented x3 - Skin Skin Exam: Intact, Warm Assessment and Plan - Assessment and Plan (Free Text) Assessment: 53M w/ GIB s/p EGD w/ multiple non-bleeding gastric and duodenal ulcers; transfusion 6uPRBC total; Plan: - pain control PRN - Diet per GI - monitor H/H - transfuse PRN - will continue to monitor - continued care per Critical care team - further recs per Dr[facility]
[2018-09-01] MEDS: MethylPREDNISolone 40 mg Vial IVP SCH (09:25)
--- NOTE | 2018-09-01 09:52 | PN ---
DATE: 09/01/2018 SUBJECTIVE: The patient is in bed, in no acute distress, nontoxic. PHYSICAL EXAMINATION: VITAL SIGNS: Temperature is 98, blood pressure is 120/70, respiratory rate of 18, heart rate of 100. HEENT: Unremarkable. NECK: Supple. LUNGS: Have decreased breath sounds. HEART: Normal S1, S2. ABDOMEN: Soft. LABORATORY DATA: Laboratory examination reveals the patient have a white count of 13,200, hemoglobin of 7, platelets of 121. Chemistries reveals a BUN of 72, creatinine of 1 and urinalysis is noted. The T-cells are noted with a percentage of 36% with an absolute CD-4 count of 361. The HIV is positive, both fourth generation test is positive and the PCR is 3.3 logs. Microbiology reveals urine and blood cultures were both negative. MEDICATIONS: Review of orders reveals the patient is the patient is on dobutamine. The patient is on ceftriaxone and Solu-Medrol. ASSESSMENT AND PLAN: This is a 53-year-old male who is in the intensive care unit currently with BiPAP with systemic inflammatory response syndrome, acute systolic congestive heart failure on top of chronic congestive heart failure, on BiPAP with anemia and positive human immunodeficiency virus with relatively adequate T cells status post sepsis. Should ideally like to start this patient on HIV medications and it is unclear as the patient appears to have any comorbidities and compliance issues with obesity, body mass index of 35 and chronic obstructive pulmonary disease, negative cultures and negative procalcitonin and chest x-ray from yesterday, questionable diffuse haziness in the left. We will discontinue the ceftriaxone, not adequate treatment is for healthcare-associated pneumonia. We will check on this morning's chest x-ray and we will repeat cultures, methicillin-resistant staphylococcus aureus screen. Blood cultures are pending and we will order sputum culture and a procalcitonin and empirically start the patient on cefepime and doxycycline pending initial workup results. We will follow closely with you. Harris Todd MD
[2018-09-01 12:22] LABS: HEMOGLOBIN 7.2 g/dL (14.0-18.0); MEAN CELL VOLUME 81.5 fl (80.0-105.0); MEAN CORPUSCULAR HEMOGLOBIN 25.2 pg (25.0-35.0); MEAN CORPUSCULAR HGB CONC 30.9 g/dl (31.0-37.0); MEAN PLATELET VOLUME 10.4 fl (7.0-11.0); RBC 2.86 10^6/uL (3.5-6.1); RED CELL DISTRIBUTION WIDTH 18.7 % (11.5-14.5); WHITE BLOOD COUNT 10.9 10^3/uL (4.5-11.0)
--- NOTE | 2018-09-01 12:54 | CP.PCM.PN ---
<Edgar Alcantar - Last Filed: 09/01/18 12:48> Subjective - Date & Time of Evaluation Date of Evaluation: 09/01/18 Time of Evaluation: 08:00 - Subjective Subjective: PGY6 GI Fellow Progress Note Patient seen and examined bedside this morning. The patient remains delirious today. Per nursing staff, had one melanotic stool overnight, extubated sucessfully. Tolerating NC. 12 system ROS performed and limited given clinical condition Objective - Vital Signs/Intake and Output Vital Signs (last 24 hours): Temp Pulse Resp BP Pulse Ox 97.9 F 88 25 H 145/75 95 09/01/18 08:00 09/01/18 10:00 09/01/18 10:00 09/01/18 09:24 09/01/18 10:00 Intake and Output: 09/01/18 09/01/18 06:59 18:59 Intake Total 565 Output Total 1200 Balance -635 - Medications Medications: Current Medications Albumin Human (Albumin Human 25% (12.5 Gm/50 Ml)) 12.5 gm IV Q4H [facility] Last Admin: 09/01/18 12:16 Dose: 12.5 gm Albuterol/Ipratropium (Duoneb 3 Mg/0.5 Mg (3 Ml) Ud) 3 ml IH [id number] [facility] Last Admin: 09/01/18 07:31 Dose: 3 ml Albuterol/Ipratropium (Duoneb 3 Mg/0.5 Mg (3 Ml) Ud) 3 ml IH Q2H PRN PRN Reason: Shortness of Breath Last Admin: 08/25/18 23:35 Dose: 3 ml Atorvastatin Calcium (Lipitor) 80 mg PO DIN [facility] Last Admin: 08/31/18 16:28 Dose: Not Given Carvedilol (Coreg) 12.5 mg PO BID [facility] Last Admin: 08/30/18 11:14 Dose: 12.5 mg Docusate Sodium (Colace) 100 mg PO BID [facility] Last Admin: 09/01/18 09:18 Dose: Not Given Doxycycline Hyclate (Doryx) 100 mg PO Q12 [facility]; Protocol Stop: 09/06/18 10:01 Last Admin: 09/01/18 09:23 Dose: 100 mg Furosemide (Lasix) 40 mg IVP DAILY [facility] Last Admin: 12/13/18 09:24 Dose: 40 mg Glipizide (Glucotrol) 5 mg PO ACB [facility] Last Admin: 08/31/18 07:45 Dose: Not Given Pantoprazole Sodium (Protonix 40mg Ivpb) 40 mg in 100 mls @ 20 mls/hr IVPB .Q5H [facility] Last Admin: 09/01/18 09:29 Dose: 20 mls/hr Cefepime HCl (Maxipime 1gm) 1 gm in 100 mls @ 100 mls/hr IVPB Q8 [facility]; Protocol Stop: 09/10/18 14:01 Insulin Human Lispro (Humalog High) 0 units SC Q4 [facility]; Protocol Last Admin: 09/01/18 12:05 Dose: 2 units Lactulose (Enulose) 20 gm PO TID [facility] Last Admin: 09/01/18 09:25 Dose: 20 gm Losartan Potassium (Cozaar) 25 mg PO DAILY [facility] Last Admin: 08/30/18 11:14 Dose: 25 mg Rifaximin (Xifaxan) 550 mg PO BID [facility]; Protocol Last Admin: 09/01/18 09:23 Dose: 550 mg - Labs Labs: 09/01/18 12:00 09/01/18 05:20 PT 13.8 SECONDS (9.4-12.5) H 09/01/18 06:50 INR 1.20 09/01/18 06:50 APTT 28.4 Seconds (25.1-36.5) 08/31/18 17:50 - Constitutional Appears: No Acute Distress, Confused - Eye Exam Eye Exam: EOMI, PERRL - ENT Exam ENT Exam: Mucous Membranes Dry - Respiratory Exam Respiratory Exam: Rales. absent: Clear to Ausculation Bilateral, Rhonchi, Wheezes - Cardiovascular Exam Cardiovascular Exam: RRR, +S1, +S2 - GI/Abdominal Exam GI & Abdominal Exam: Soft, Normal Bowel Sounds. absent: Distended, Firm, Guarding, Rigid, Tenderness, Organomegaly - Extremities Exam Additional comments: LE edema 1+ - Neurological Exam Neurological Exam: Altered, Awake - Psychiatric Exam Psychiatric exam: Agitated - Skin Skin Exam: Dry, Warm Assessment and Plan - Assessment and Plan (Free Text) Assessment: Patient is a 53yo male with PMHx significant for HIV not on HAART, COPD, systolic CHF with biventricular failure, CAD s/p PCI, DM, HTN, hyperlipidemia who presented to the hospital 5 days ago with shortness of breath -Acute blood loss anemia 2/2 severe PUD -Biventricular heart failure -COPD with acute exacerbation -Cirrhosis suspected, etiology presumed 2/2 cardiac dysfunction - R/O underlying autoimmune conditions -Hepatic encephalopathy -HIV -CAD Plan: -S/P EGD yesterday with esophageal, gastric and duodenal ulceration - some particularly large - with evidence of recent bleeding in the form of hemetin in the stomach -Continue PPI gtt for 72 hours -Recommended discontinuation of octreotide and D/C order yesterday -U/S reviewed once more - trace acites noted - too small for paracentesis -Liquid diet and advance slowly -Continue blood transfusion as indicated - underlying cardiac disease and thus goal HGB may be ~10 -Ceftriaxone discontinued by ID, on Cefepime - recommended as prophylaxis for 5 days -Continue to follow CBC Q12 - melena from last night possibly old blood -Xifaxan and Lactulose for HE -MARITZA, AMA, SMA pending <Suzie,Kovil V - Last Filed: 09/01/18 23:38> Objective - Vital Signs/Intake and Output Vital Signs (last 24 hours): Temp Pulse Resp BP Pulse Ox 98.2 F 86 33 H 153/95 H 100 09/01/18 20:00 09/01/18 21:00 09/01/18 21:00 09/01/18 21:01 09/01/18 20:01 Intake and Output: 09/01/18 09/02/18 18:59 06:59 Intake Total 2410 Output Total 4400 Balance -1989 - Medications Medications: Current Medications Albumin Human (Albumin Human 25% (12.5 Gm/50 Ml)) 12.5 gm IV Q4H [facility] Last Admin: 09/01/18 21:12 Dose: 12.5 gm Albuterol/Ipratropium (Duoneb 3 Mg/0.5 Mg (3 Ml) Ud) 3 ml IH [id number] [facility] Last Admin: 09/01/18 19:24 Dose: 3 ml Albuterol/Ipratropium (Duoneb 3 Mg/0.5 Mg (3 Ml) Ud) 3 ml IH Q2H PRN PRN Reason: Shortness of Breath Last Admin: 08/25/18 23:35 Dose: 3 ml Atorvastatin Calcium (Lipitor) 80 mg PO DIN [facility] Last Admin: 09/01/18 16:54 Dose: 80 mg Carvedilol (Coreg) 12.5 mg PO BID [facility] Last Admin: 08/30/18 11:14 Dose: 12.5 mg Docusate Sodium (Colace) 100 mg PO BID [facility] Last Admin: 09/01/18 17:04 Dose: Not Given Doxycycline Hyclate (Doryx) 100 mg PO Q12 [facility]; Protocol Stop: 09/06/18 10:01 Last Admin: 09/01/18 21:17 Dose: 100 mg Furosemide (Lasix) 40 mg IVP DAILY [facility] Last Admin: 09/01/18 09:24 Dose: 40 mg Furosemide (Lasix) 40 mg IVP ONCE ONE Stop: 09/02/18 03:01 Glipizide (Glucotrol) 5 mg PO ACB [facility] Last Admin: 08/31/18 07:45 Dose: Not Given Pantoprazole Sodium (Protonix 40mg Ivpb) 40 mg in 100 mls @ 20 mls/hr IVPB .Q5H [facility] Last Admin: 09/01/18 22:21 Dose: 20 mls/hr Cefepime HCl (Maxipime 1gm) 1 gm in 100 mls @ 100 mls/hr IVPB Q8 [facility]; Protocol Stop: 09/10/18 14:01 Last Admin: 09/01/18 21:18 Dose: 100 mls/hr Insulin Human Lispro (Humalog High) 0 units SC Q4 [facility]; Protocol Last Admin: 09/01/18 21:13 Dose: Not Given Lactulose (Enulose) 20 gm PO TID [facility] Last Admin: 09/01/18 17:03 Dose: 20 gm Losartan Potassium (Cozaar) 25 mg PO DAILY [facility] Last Admin: 08/30/18 11:14 Dose: 25 mg Rifaximin (Xifaxan) 550 mg PO BID [facility]; Protocol Last Admin: 09/01/18 17:03 Dose: 550 mg - Labs Labs: 09/01/18 22:56 09/01/18 05:20 PT 13.8 SECONDS (9.4-12.5) H 09/01/18 06:50 INR 1.20 09/01/18 06:50 APTT 28.4 Seconds (25.1-36.5) 08/31/18 17:50 Attending/Attestation - Attestation I have personally seen and examined this patient.: Yes I have fully participated in the care of the patient.: Yes I have reviewed all pertinent clinical information, including history, physical exam and plan: Yes Notes (Text): This is an addendum to GI progress report dictated by the GI Fellow. The patient was seen and examined earlier. Medical records, lab studies, imagings were reviewed. Last 24 hours events reviewed. Agreed with the above treatment plan as outlined in GI Fellow 's notes with the addition of the following 09/01/18 23:38
--- NOTE | 2018-09-01 13:02 | CP.CCUPN ---
<Lukasz Hayden - Last Filed: 09/01/18 13:04> CCU Subjective - Physician Review Subjective (Free Text): Lukasz Hayden, PGY1 ICU Progress Note for Dr. Mcintyre Patient was seen and examined at bedside this morning. Patient was extubated yesterday after having endoscopy done; placed on BiPAP after. He has diego and nasal cannula in place. Patient had x1 episode of melena overnight. Overall, patient has received in total x6 units of pPRBCs during hospital course. Patient is off sedation and AAOx3. Afebrile overnight, vital signs stable. Patient denies abdominal pain, shortness of breath, nausea, vomiting, diarrhea, lightheadedness, dizziness. A full 12 point ROS was conducted and unremarkable except as stated above. CCU Objective - Vital Signs / Intake & Output Vital Signs (Last 4 hours): Vital Signs Pulse Resp BP Pulse Ox 09/01/18 10:00 88 25 H 95 09/01/18 09:24 145/75 09/01/18 09:01 89 16 145/75 77 L 09/01/18 09:00 88 17 94 L Intake and Output (Last 8hrs): Intake & Output 08/31/18 09/01/18 09/01/18 22:59 06:59 14:59 Intake Total 1517 550 Output Total 1900 1200 Balance -383 -650 Intake: IV 617 450 Left Antecubital 450 antibiotics 100 dobutamine 63 fentanyl 12 propafol 58 protonix 240 sandostatin 60 versed 7 Oral 60 100 Blood Product 650 Red Blood Cells Cpd As1 325 Lr Unit [id number] Albumin 150 Other 40 Red Blood Cells Cpd As1 40 Lr Unit [id number] Output: Urine 1900 1200 Urethral (Diego) 1500 1200 Urine, Voided 400 Other: # Voids Urine, Voided 3 # Bowel Movements 0 1 - Physical Exam Head: Positive for: Atraumatic, Normocephalic Pupils: Positive for: PERRL Extroacular Muscles: Positive for: EOMI Conjunctiva: Positive for: Normal Mouth: Positive for: Moist Mucous Membranes, Other (Nasal cannula in place) Neck: Positive for: Normal Range of Motion Respiratory/Chest: Positive for: Clear to Auscultation. Negative for: Good Air Exchange, Respiratory Distress, Accessory Muscle Use, Wheezes, Rales, Retracting, Rhonchi, Tachypneic Cardiovascular: Positive for: Regular Rate and Rhythm, Normal S1, S2. Negative for: Murmurs Abdomen: Positive for: Normal Bowel Sounds. Negative for: Tenderness, Distention, Peritoneal Signs, Rebound, Guarding Genitourinary Male: Positive for: Other (Diego in place. ) Back: Positive for: Normal Inspection Upper Extremity: Positive for: Normal Inspection. Negative for: Cyanosis, Edema Lower Extremity: Positive for: Other (B/L lower extremity stasis dermatitis/scaly dry skin noted). Negative for: Edema Neurological: Positive for: Speech Normal, Motor Func Grossly Intact Skin: Positive for: Warm, Dry, Normal Color. Negative for: Rashes Psychiatric: Positive for: Alert, Oriented x 3 - Medications Active Medications: Active Medications Generic Name Dose Route Start Last Admin Trade Name Freq PRN Reason Stop Dose Admin Albumin Human 12.5 gm 08/31/18 08:00 09/01/18 12:16 Albumin Human 25% (12.5 Gm/50 Ml) IV 12.5 gm Q4H TRAVIS Administration Albuterol/Ipratropium 3 ml 08/26/18 02:00 09/01/18 07:31 Duoneb 3 Mg/0.5 Mg (3 Ml) Ud IH 3 ml [id number] TRAVIS Administration Albuterol/Ipratropium 3 ml 08/25/18 20:01 08/25/18 23:35 Duoneb 3 Mg/0.5 Mg (3 Ml) Ud IH 3 ml Q2H PRN Administration Shortness of Breath Atorvastatin Calcium 80 mg 08/25/18 20:15 08/31/18 16:28 Lipitor PO Not Given DIN TRAVIS Carvedilol 12.5 mg 08/25/18 21:15 08/30/18 11:14 Coreg PO 12.5 mg BID TRAVIS Administration Docusate Sodium 100 mg 08/26/18 10:00 09/01/18 09:18 Colace PO Not Given BID TRAVIS Doxycycline Hyclate 100 mg 09/01/18 10:00 09/01/18 09:23 Doryx PO 09/06/18 10:01 100 mg Q12 TRAVIS Administration Protocol Furosemide 40 mg 08/30/18 10:00 09/01/18 09:24 Lasix IVP 40 mg DAILY TRAVIS Administration Glipizide 5 mg 08/29/18 10:45 08/31/18 07:45 Glucotrol PO Not Given ACB TRAVIS Pantoprazole Sodium 40 mg in 100 mls @ 20 mls/hr 08/30/18 15:00 09/01/18 09:29 Protonix 40mg Ivpb IVPB 20 mls/hr .Q5H TRAVIS Administration Cefepime HCl 1 gm in 100 mls @ 100 mls/hr 09/01/18 14:00 Maxipime 1gm IVPB 09/10/18 14:01 Q8 TRAVIS Protocol Insulin Human Lispro 0 units 08/31/18 08:00 09/01/18 12:05 Humalog High SC 2 units Q4 TRAVIS Administration Protocol Lactulose 20 gm 08/31/18 14:00 09/01/18 09:25 Enulose PO 20 gm TID TRAVIS Administration Losartan Potassium 25 mg 08/27/18 12:30 08/30/18 11:14 Cozaar PO 25 mg DAILY TRAVIS Administration Rifaximin 550 mg 08/31/18 10:00 09/01/18 09:23 Xifaxan PO 550 mg BID TRAVIS Administration Protocol - Patient Studies Lab Studies: Microbiology Studies 08/30/18 21:47 MRSA Culture (Admit) - Final Nose MRSA NOT DETECTED Lab Studies 09/01/18 09/01/18 09/01/18 Range/Units 12:00 06:50 05:20 WBC 10.9 (4.5-11.0) 10^3/uL RBC 2.86 L (3.5-6.1) 10^6/uL Hgb 7.2 L (14.0-18.0) g/dL Hct 23.3 L (42.0-52.0) % MCV 81.5 (80.0-105.0) fl MCH 25.2 (25.0-35.0) pg MCHC 30.9 L (31.0-37.0) g/dl RDW 18.7 H (11.5-14.5) % Plt Count 124 (120.0-450.0) 10^3/uL MPV 10.4 (7.0-11.0) fl PT 13.8 H (9.4-12.5) SECONDS INR 1.20 APTT (25.1-36.5) Seconds pCO2 (35-45) mm/Hg pO2 (30-55) mm/Hg HCO3 (21-28) mmol/L ABG pH (7.35-7.45) ABG Total CO2 (22-28) mmol.L ABG O2 Saturation (95-98) % ABG O2 Content (15-23) ML/dl ABG Base Excess (-2.0-3.0) mmol/L ABG Hemoglobin (11.7-17.4) g/dL ABG Carboxyhemoglobin (0.5-1.5) % POC ABG HHb (Measured) (0-5) % ABG Methemoglobin (0.0-3.0) % ABG O2 Capacity (16-24) mL/dl ABG Potassium (3.6-5.2) mmol/L VBG pH (7.32-7.43) VBG pCO2 (40-60) VBG HCO3 (21-28) mmol/l VBG Total CO2 (22-28) mmol.L VBG O2 Sat (Calc) (40-65) % VBG Base Excess (0.0-2.0) mmol/L VBG Potassium (3.6-5.2) mmol/L Hgb O2 Saturation (95.0-98.0) % Sodium 150 H (132-148) mmol/L Chloride 108 H (98-107) mmol/L Glucose (75-110) mg/dl Lactate (0.7-2.1) mmol/L Mechanical Rate FiO2 % Tidal Volume PEEP Potassium 4.2 (3.6-5.0) mmol/L Carbon Dioxide 39 H (21-33) mmol/L Anion Gap 7 L (10-20) BUN 72 H (7-21) mg/dL Creatinine 1.0 (0.8-1.5) mg/dl Est GFR ( Amer) > 60 Est GFR (Non-Af Amer) > 60 Random Glucose 161 H (70-110) mg/dL Calcium 8.1 L (8.4-10.5) mg/dL Phosphorus 3.1 (2.5-4.5) mg/dL Magnesium 1.8 (1.7-2.2) mg/dL Total Bilirubin 0.9 (0.2-1.3) mg/dL AST 38 (17-59) U/L ALT 29 (7-56) U/L Alkaline Phosphatase 133 H (38-126) U/L Total Protein 6.3 (5.8-8.3) g/dL Albumin 2.8 L (3.0-4.8) g/dL Globulin 3.5 gm/dL Albumin/Globulin Ratio 0.8 L (1.1-1.8) Arterial Blood Potassium (3.6-5.2) mmol/L Venous Blood Potassium (3.6-5.2) mmol/L IgG (700.0-1600.0) mg/dL IgM (40.0-230.0) mg/dL Blood Type Antibody Screen Crossmatch BBK History Checked 09/01/18 09/01/18 08/31/18 Range/Units 05:20 00:30 20:57 WBC 13.2 H 14.3 H D (4.5-11.0) 10^3/uL RBC 2.86 L 3.09 L (3.5-6.1) 10^6/uL Hgb 7.3 L 8.0 L (14.0-18.0) g/dL Hct 23.1 L 24.7 L (42.0-52.0) % MCV 80.8 79.9 L (80.0-105.0) fl MCH 25.5 25.9 (25.0-35.0) pg MCHC 31.6 32.4 (31.0-37.0) g/dl RDW 18.4 H 18.1 H (11.5-14.5) % Plt Count 121 121 (120.0-450.0) 10^3/uL MPV 10.3 9.7 (7.0-11.0) fl PT (9.4-12.5) SECONDS INR APTT (25.1-36.5) Seconds pCO2 54 H (35-45) mm/Hg pO2 101.0 H (30-55) mm/Hg HCO3 38.4 H (21-28) mmol/L ABG pH 7.46 H (7.35-7.45) ABG Total CO2 40.1 H (22-28) mmol.L ABG O2 Saturation 98.6 H (95-98) % ABG O2 Content 9.8 L (15-23) ML/dl ABG Base Excess 13.2 H (-2.0-3.0) mmol/L ABG Hemoglobin 7.1 L (11.7-17.4) g/dL ABG Carboxyhemoglobin 1.9 H (0.5-1.5) % POC ABG HHb (Measured) 1.4 (0-5) % ABG Methemoglobin 0.9 (0.0-3.0) % ABG O2 Capacity 9.9 L (16-24) mL/dl ABG Potassium (3.6-5.2) mmol/L VBG pH (7.32-7.43) VBG pCO2 (40-60) VBG HCO3 (21-28) mmol/l VBG Total CO2 (22-28) mmol.L VBG O2 Sat (Calc) (40-65) % VBG Base Excess (0.0-2.0) mmol/L VBG Potassium (3.6-5.2) mmol/L Hgb O2 Saturation 95.8 (95.0-98.0) % Sodium (132-148) mmol/L Chloride (98-107) mmol/L Glucose (75-110) mg/dl Lactate (0.7-2.1) mmol/L Mechanical Rate FiO2 30.0 % Tidal Volume PEEP Potassium (3.6-5.0) mmol/L Carbon Dioxide (21-33) mmol/L Anion Gap (10-20) BUN (7-21) mg/dL Creatinine (0.8-1.5) mg/dl Est GFR ( Amer) Est GFR (Non-Af Amer) Random Glucose (70-110) mg/dL Calcium (8.4-10.5) mg/dL Phosphorus (2.5-4.5) mg/dL Magnesium (1.7-2.2) mg/dL Total Bilirubin (0.2-1.3) mg/dL AST (17-59) U/L ALT (7-56) U/L Alkaline Phosphatase (38-126) U/L Total Protein (5.8-8.3) g/dL Albumin (3.0-4.8) g/dL Globulin gm/dL Albumin/Globulin Ratio (1.1-1.8) Arterial Blood Potassium (3.6-5.2) mmol/L Venous Blood Potassium (3.6-5.2) mmol/L IgG (700.0-1600.0) mg/dL IgM (40.0-230.0) mg/dL Blood Type Antibody Screen Crossmatch BBK History Checked 08/31/18 08/31/18 08/31/18 Range/Units 20:50 17:50 17:50 WBC (4.5-11.0) 10^3/uL RBC (3.5-6.1) 10^6/uL Hgb (14.0-18.0) g/dL Hct (42.0-52.0) % MCV (80.0-105.0) fl MCH (25.0-35.0) pg MCHC (31.0-37.0) g/dl RDW (11.5-14.5) % Plt Count (120.0-450.0) 10^3/uL MPV (7.0-11.0) fl PT 13.4 H (9.4-12.5) SECONDS INR 1.17 APTT 28.4 (25.1-36.5) Seconds pCO2 (35-45) mm/Hg pO2 81 H (30-55) mm/Hg HCO3 (21-28) mmol/L ABG pH (7.35-7.45) ABG Total CO2 (22-28) mmol.L ABG O2 Saturation (95-98) % ABG O2 Content (15-23) ML/dl ABG Base Excess (-2.0-3.0) mmol/L ABG Hemoglobin (11.7-17.4) g/dL ABG Carboxyhemoglobin (0.5-1.5) % POC ABG HHb (Measured) (0-5) % ABG Methemoglobin (0.0-3.0) % ABG O2 Capacity (16-24) mL/dl ABG Potassium (3.6-5.2) mmol/L VBG pH 7.44 H (7.32-7.43) VBG pCO2 57.0 (40-60) VBG HCO3 38.7 H (21-28) mmol/l VBG Total CO2 40.4 H (22-28) mmol.L VBG O2 Sat (Calc) 97.8 H (40-65) % VBG Base Excess 12.1 H (0.0-2.0) mmol/L VBG Potassium 4.0 (3.6-5.2) mmol/L Hgb O2 Saturation (95.0-98.0) % Sodium 152.0 H 147 (132-148) mmol/L Chloride 110.0 H 107 (98-107) mmol/L Glucose 183 H (75-110) mg/dl Lactate 3.9 H (0.7-2.1) mmol/L Mechanical Rate FiO2 21.0 % Tidal Volume PEEP Potassium 3.9 (3.6-5.0) mmol/L Carbon Dioxide 36 H (21-33) mmol/L Anion Gap 7 L (10-20) BUN 70 H (7-21) mg/dL Creatinine 1.0 (0.8-1.5) mg/dl Est GFR ( Amer) > 60 Est GFR (Non-Af Amer) > 60 Random Glucose 197 H (70-110) mg/dL Calcium 7.4 L (8.4-10.5) mg/dL Phosphorus (2.5-4.5) mg/dL Magnesium (1.7-2.2) mg/dL Total Bilirubin 1.0 (0.2-1.3) mg/dL AST 35 (17-59) U/L ALT 33 (7-56) U/L Alkaline Phosphatase 143 H (38-126) U/L Total Protein 5.6 L (5.8-8.3) g/dL Albumin 2.2 L (3.0-4.8) g/dL Globulin 3.4 gm/dL Albumin/Globulin Ratio 0.7 L (1.1-1.8) Arterial Blood Potassium (3.6-5.2) mmol/L Venous Blood Potassium 4.0 (3.6-5.2) mmol/L IgG (700.0-1600.0) mg/dL IgM (40.0-230.0) mg/dL Blood Type Antibody Screen Crossmatch BBK History Checked 08/31/18 08/31/18 08/31/18 Range/Units 17:50 17:00 14:00 WBC 11.9 H D (4.5-11.0) 10^3/uL RBC 2.94 L (3.5-6.1) 10^6/uL Hgb 7.6 L (14.0-18.0) g/dL Hct 23.1 L (42.0-52.0) % MCV 78.6 L (80.0-105.0) fl MCH 25.9 (25.0-35.0) pg MCHC 32.9 (31.0-37.0) g/dl RDW 17.5 H (11.5-14.5) % Plt Count 101 L (120.0-450.0) 10^3/uL MPV 9.0 (7.0-11.0) fl PT (9.4-12.5) SECONDS INR APTT (25.1-36.5) Seconds pCO2 50 H (35-45) mm/Hg pO2 105.0 H 49 (30-55) mm/Hg HCO3 36.4 H (21-28) mmol/L ABG pH 7.47 H (7.35-7.45) ABG Total CO2 37.9 H (22-28) mmol.L ABG O2 Saturation 98.9 H (95-98) % ABG O2 Content (15-23) ML/dl ABG Base Excess 10.9 H (-2.0-3.0) mmol/L ABG Hemoglobin (11.7-17.4) g/dL ABG Carboxyhemoglobin (0.5-1.5) % POC ABG HHb (Measured) (0-5) % ABG Methemoglobin (0.0-3.0) % ABG O2 Capacity (16-24) mL/dl ABG Potassium 3.8 (3.6-5.2) mmol/L VBG pH 7.53 H (7.32-7.43) VBG pCO2 47.0 (40-60) VBG HCO3 39.3 H (21-28) mmol/l VBG Total CO2 40.7 H (22-28) mmol.L VBG O2 Sat (Calc) 93.2 H (40-65) % VBG Base Excess 14.6 H (0.0-2.0) mmol/L VBG Potassium 4.1 (3.6-5.2) mmol/L Hgb O2 Saturation (95.0-98.0) % Sodium 152.0 H 149.0 H (132-148) mmol/L Chloride 109.0 H 110.0 H (98-107) mmol/L Glucose 204 H 234 H (75-110) mg/dl Lactate 3.3 H 3.3 H (0.7-2.1) mmol/L Mechanical Rate 16 FiO2 30.0 21.0 % Tidal Volume 500 PEEP 5 Potassium (3.6-5.0) mmol/L Carbon Dioxide (21-33) mmol/L Anion Gap (10-20) BUN (7-21) mg/dL Creatinine (0.8-1.5) mg/dl Est GFR ( Amer) Est GFR (Non-Af Amer) Random Glucose (70-110) mg/dL Calcium (8.4-10.5) mg/dL Phosphorus (2.5-4.5) mg/dL Magnesium (1.7-2.2) mg/dL Total Bilirubin (0.2-1.3) mg/dL AST (17-59) U/L ALT (7-56) U/L Alkaline Phosphatase (38-126) U/L Total Protein (5.8-8.3) g/dL Albumin (3.0-4.8) g/dL Globulin gm/dL Albumin/Globulin Ratio (1.1-1.8) Arterial Blood Potassium 3.8 (3.6-5.2) mmol/L Venous Blood Potassium 4.1 (3.6-5.2) mmol/L IgG (700.0-1600.0) mg/dL IgM (40.0-230.0) mg/dL Blood Type Antibody Screen Crossmatch BBK History Checked 08/31/18 08/30/18 Range/Units 10:40 10:35 WBC (4.5-11.0) 10^3/uL RBC (3.5-6.1) 10^6/uL Hgb (14.0-18.0) g/dL Hct (42.0-52.0) % MCV (80.0-105.0) fl MCH (25.0-35.0) pg MCHC (31.0-37.0) g/dl RDW (11.5-14.5) % Plt Count (120.0-450.0) 10^3/uL MPV (7.0-11.0) fl PT (9.4-12.5) SECONDS INR APTT (25.1-36.5) Seconds pCO2 (35-45) mm/Hg pO2 (30-55) mm/Hg HCO3 (21-28) mmol/L ABG pH (7.35-7.45) ABG Total CO2 (22-28) mmol.L ABG O2 Saturation (95-98) % ABG O2 Content (15-23) ML/dl ABG Base Excess (-2.0-3.0) mmol/L ABG Hemoglobin (11.7-17.4) g/dL ABG Carboxyhemoglobin (0.5-1.5) % POC ABG HHb (Measured) (0-5) % ABG Methemoglobin (0.0-3.0) % ABG O2 Capacity (16-24) mL/dl ABG Potassium (3.6-5.2) mmol/L VBG pH (7.32-7.43) VBG pCO2 (40-60) VBG HCO3 (21-28) mmol/l VBG Total CO2 (22-28) mmol.L VBG O2 Sat (Calc) (40-65) % VBG Base Excess (0.0-2.0) mmol/L VBG Potassium (3.6-5.2) mmol/L Hgb O2 Saturation (95.0-98.0) % Sodium (132-148) mmol/L Chloride (98-107) mmol/L Glucose (75-110) mg/dl Lactate (0.7-2.1) mmol/L Mechanical Rate FiO2 % Tidal Volume PEEP Potassium (3.6-5.0) mmol/L Carbon Dioxide (21-33) mmol/L Anion Gap (10-20) BUN (7-21) mg/dL Creatinine (0.8-1.5) mg/dl Est GFR ( Amer) Est GFR (Non-Af Amer) Random Glucose (70-110) mg/dL Calcium (8.4-10.5) mg/dL Phosphorus (2.5-4.5) mg/dL Magnesium (1.7-2.2) mg/dL Total Bilirubin (0.2-1.3) mg/dL AST (17-59) U/L ALT (7-56) U/L Alkaline Phosphatase (38-126) U/L Total Protein (5.8-8.3) g/dL Albumin (3.0-4.8) g/dL Globulin gm/dL Albumin/Globulin Ratio (1.1-1.8) Arterial Blood Potassium (3.6-5.2) mmol/L Venous Blood Potassium (3.6-5.2) mmol/L IgG 2158.1 H (700.0-1600.0) mg/dL IgM 145.9 (40.0-230.0) mg/dL Blood Type A POSITIVE Antibody Screen Negative Crossmatch See Detail BBK History Checked Patient has bt Laboratory Results - last 24 hr 08/30/18 08/31/18 08/31/18 10:35 10:40 14:00 WBC RBC Hgb Hct MCV MCH MCHC RDW Plt Count MPV PT INR APTT pCO2 pO2 49 HCO3 ABG pH ABG Total CO2 ABG O2 Saturation ABG O2 Content ABG Base Excess ABG Hemoglobin ABG Carboxyhemoglobin POC ABG HHb (Measured) ABG Methemoglobin ABG O2 Capacity ABG Potassium VBG pH 7.53 H VBG pCO2 47.0 VBG HCO3 39.3 H VBG Total CO2 40.7 H VBG O2 Sat (Calc) 93.2 H VBG Base Excess 14.6 H VBG Potassium 4.1 Hgb O2 Saturation Sodium 149.0 H Chloride 110.0 H Glucose 234 H Lactate 3.3 H Mechanical Rate FiO2 21.0 Tidal Volume PEEP Potassium Carbon Dioxide Anion Gap BUN Creatinine Est GFR ( Amer) Est GFR (Non-Af Amer) Random Glucose Calcium Phosphorus Magnesium Total Bilirubin AST ALT Alkaline Phosphatase Total Protein Albumin Globulin Albumin/Globulin Ratio Arterial Blood Potassium Venous Blood Potassium 4.1 IgG 2158.1 H IgM 145.9 Blood Type A POSITIVE Antibody Screen Negative Crossmatch See Detail BBK History Checked Patient has bt 08/31/18 08/31/18 08/31/18 17:00 17:50 17:50 WBC 11.9 H D RBC 2.94 L Hgb 7.6 L Hct 23.1 L MCV 78.6 L MCH 25.9 MCHC 32.9 RDW 17.5 H Plt Count 101 L MPV 9.0 PT 13.4 H INR 1.17 APTT 28.4 pCO2 50 H pO2 105.0 H HCO3 36.4 H ABG pH 7.47 H ABG Total CO2 37.9 H ABG O2 Saturation 98.9 H ABG O2 Content ABG Base Excess 10.9 H ABG Hemoglobin ABG Carboxyhemoglobin POC ABG HHb (Measured) ABG Methemoglobin ABG O2 Capacity ABG Potassium 3.8 VBG pH VBG pCO2 VBG HCO3 VBG Total CO2 VBG O2 Sat (Calc) VBG Base Excess VBG Potassium Hgb O2 Saturation Sodium 152.0 H Chloride 109.0 H Glucose 204 H Lactate 3.3 H Mechanical Rate 16 FiO2 30.0 Tidal Volume 500 PEEP 5 Potassium Carbon Dioxide Anion Gap BUN Creatinine Est GFR ( Amer) Est GFR (Non-Af Amer) Random Glucose Calcium Phosphorus Magnesium Total Bilirubin AST ALT Alkaline Phosphatase Total Protein Albumin Globulin Albumin/Globulin Ratio Arterial Blood Potassium 3.8 Venous Blood Potassium IgG IgM Blood Type Antibody Screen Crossmatch BBK History Checked 08/31/18 08/31/18 08/31/18 17:50 20:50 20:57 WBC RBC Hgb Hct MCV MCH MCHC RDW Plt Count MPV PT INR APTT pCO2 54 H pO2 81 H 101.0 H HCO3 38.4 H ABG pH 7.46 H ABG Total CO2 40.1 H ABG O2 Saturation 98.6 H ABG O2 Content 9.8 L ABG Base Excess 13.2 H ABG Hemoglobin 7.1 L ABG Carboxyhemoglobin 1.9 H POC ABG HHb (Measured) 1.4 ABG Methemoglobin 0.9 ABG O2 Capacity 9.9 L ABG Potassium VBG pH 7.44 H VBG pCO2 57.0 VBG HCO3 38.7 H VBG Total CO2 40.4 H VBG O2 Sat (Calc) 97.8 H VBG Base Excess 12.1 H VBG Potassium 4.0 Hgb O2 Saturation 95.8 Sodium 147 152.0 H Chloride 107 110.0 H Glucose 183 H Lactate 3.9 H Mechanical Rate FiO2 21.0 30.0 Tidal Volume PEEP Potassium 3.9 Carbon Dioxide 36 H Anion Gap 7 L BUN 70 H Creatinine 1.0 Est GFR ( Amer) > 60 Est GFR (Non-Af Amer) > 60 Random Glucose 197 H Calcium 7.4 L Phosphorus Magnesium Total Bilirubin 1.0 AST 35 ALT 33 Alkaline Phosphatase 143 H Total Protein 5.6 L Albumin 2.2 L Globulin 3.4 Albumin/Globulin Ratio 0.7 L Arterial Blood Potassium Venous Blood Potassium 4.0 IgG IgM Blood Type Antibody Screen Crossmatch BBK History Checked 09/01/18 09/01/18 09/01/18 00:30 05:20 05:20 WBC 14.3 H D 13.2 H RBC 3.09 L 2.86 L Hgb 8.0 L 7.3 L Hct 24.7 L 23.1 L MCV 79.9 L 80.8 MCH 25.9 25.5 MCHC 32.4 31.6 RDW 18.1 H 18.4 H Plt Count 121 121 MPV 9.7 10.3 PT INR APTT pCO2 pO2 HCO3 ABG pH ABG Total CO2 ABG O2 Saturation ABG O2 Content ABG Base Excess ABG Hemoglobin ABG Carboxyhemoglobin POC ABG HHb (Measured) ABG Methemoglobin ABG O2 Capacity ABG Potassium VBG pH VBG pCO2 VBG HCO3 VBG Total CO2 VBG O2 Sat (Calc) VBG Base Excess VBG Potassium Hgb O2 Saturation Sodium 150 H Chloride 108 H Glucose Lactate Mechanical Rate FiO2 Tidal Volume PEEP Potassium 4.2 Carbon Dioxide 39 H Anion Gap 7 L BUN 72 H Creatinine 1.0 Est GFR ( Amer) > 60 Est GFR (Non-Af Amer) > 60 Random Glucose 161 H Calcium 8.1 L Phosphorus 3.1 Magnesium 1.8 Total Bilirubin 0.9 AST 38 ALT 29 Alkaline Phosphatase 133 H Total Protein 6.3 Albumin 2.8 L Globulin 3.5 Albumin/Globulin Ratio 0.8 L Arterial Blood Potassium Venous Blood Potassium IgG IgM Blood Type Antibody Screen Crossmatch BBK History Checked 09/01/18 09/01/18 06:50 12:00 WBC 10.9 RBC 2.86 L Hgb 7.2 L Hct 23.3 L MCV 81.5 MCH 25.2 MCHC 30.9 L RDW 18.7 H Plt Count 124 MPV 10.4 PT 13.8 H INR 1.20 APTT pCO2 pO2 HCO3 ABG pH ABG Total CO2 ABG O2 Saturation ABG O2 Content ABG Base Excess ABG Hemoglobin ABG Carboxyhemoglobin POC ABG HHb (Measured) ABG Methemoglobin ABG O2 Capacity ABG Potassium VBG pH VBG pCO2 VBG HCO3 VBG Total CO2 VBG O2 Sat (Calc) VBG Base Excess VBG Potassium Hgb O2 Saturation Sodium Chloride Glucose Lactate Mechanical Rate FiO2 Tidal Volume PEEP Potassium Carbon Dioxide Anion Gap BUN Creatinine Est GFR ( Amer) Est GFR (Non-Af Amer) Random Glucose Calcium Phosphorus Magnesium Total Bilirubin AST ALT Alkaline Phosphatase Total Protein Albumin Globulin Albumin/Globulin Ratio Arterial Blood Potassium Venous Blood Potassium IgG IgM Blood Type Antibody Screen Crossmatch BBK History Checked Radiology Impressions: Radiology Impressions Abdomen Ultrasound 08/30/18 15:20 IMPRESSION: 1. Patent portal vein with hepatopetal flow. 2. Trace amount of ascites. 3. Limited study. Chest X-Ray 08/31/18 15:27 IMPRESSION: Limited portable examination with patient rotation to the left. Endotracheal tube terminates 5 cm proximal to the abdi. Suspect developing pulmonary edema and pleural effusions. Fingerstick Blood Sugar Results: 174 Review of Systems - Review of Systems All systems: reviewed and no additional remarkable complaints except (as per HPI) Critical Care Progress Note - Extremities/Vascular Does the Patient have a Diego Catheter?: Yes Does the Patient need a Diego Catheter?: Yes Catheter Insertion Criteria: Need for accurate measurement of output in critically ill patient - Nutrition Nutrition: Nutrition Category Date Time Status Liquid Diet [DIET] Diets 09/01/18 Lunch Ordered Assessment/Plan - Assessment and Plan (Free Text) Assessment: Patient is a 53 y/o M with PMHx HIV (not on HAART), COPD, CHF-rEF (ECHO on 05/10 showing EF 39% with septal hypokinesis), Biventricular HF, CAD s/p PCI, DM, HTN, HLD who presented to [facility] for worsening shortness of breath for 5 days in duration. Patient admitted and treated for COPD vs CHF exacerbation with fluid overload. ICU was consulted for evaluation of suspected upper GI bleed with new onset anemia requiring multiple blood transfusions. Patient is s/p endoscopy and was found to have multiple non-bleeding esophageal, gastric, and duodenal ulcers. Plan: Neuro: - Hepatic Encephalopathy - c/w lactulose and rifaximin - Repeat ammonia level is 66 - Currently AAOx3 on interview but has episode of confusion and waxing/waning - Hx of HIV (not on HAART) with recent CD4 count 361 Pulm: - Treated for COPD vs CHF exacerbation with fluid overload on the floor - c/w nasal cannula - s/p extubation after endoscopy on 08/31 - Saturating well and no acute respiratory distress. Discontinue steroids. - Maintain SaO2 > 92% - c/w Lasix 40mg IVP - Monitor ins/outs Cardio: - Avoid aggressive hydration due to significant Biventricular HF - Maintain MAP > 65 - Echo (05/10): EF 39% with septal hypokinesis - Cardio is on consult. Recs appreciated - Hx CHF-rEF, Biventricular HF, HTN, DM, CAD (s/p PCI), HLD GI: - Upper GI bleed 2/2 Multiple Non-bleeding esophageal, gastric, and duodenal ulcers - s/p endoscopy - As per GI recs: c/w cbc q6 to monitor H/H, protonix IV for at least 72 hours, and repeat endoscopy in 1 month to assess healing of ulcers - Clear liquid diet - Based on MELD score and given elevated BUN, INR, Sodium, low albumin, and new abdominal ultrasound findings patient likely has cirrhosis - Surgery consulted. Recs appreciated. - GI is on consult. Recs appreciated. - Hep panel negative Heme: - Most recent INR is 1.2 - Most recent Hgb is 7.2 - Transfused in total x6 units pRBCs; continue to monitor H/H as patient's Hgb is not responding appropriately to blood transfusion - DVT ppx with SCDs Renal: - High Sodium, High BUN, and low albumin secondary to underlying liver cirrhosis - c/w albumin - Diego in place - Monitor strict Ins/outs Endo: - ISS (high) - Accuchecks q4 - Maintain blood glucose within 140-180 range as per NICE-SUGAR trial - Hx DM ID: - started on cefepime and doxycycline (Day 1) - ID is on consult. Recs appreciated - Afebrile with mild leukocytosis. Dispo: Patient is s/p endoscopy showing multiple non-bleeding esophageal, gastric, and duodenal ulcers. Will continue to monitor in the ICU. Case was discussed and reviewed with Attending Physician, Dr. Mcintyre <Alberto Mcintyre - Last Filed: 09/01/18 15:08> CCU Objective - Vital Signs / Intake & Output Intake and Output (Last 8hrs): Intake & Output 09/01/18 09/01/18 09/01/18 06:59 14:59 22:59 Intake Total 550 Output Total 1200 Balance -650 Intake: IV 450 Left Antecubital 450 Oral 100 Output: Urine 1200 Urethral (Diego) 1200 Other: # Bowel Movements 1 - Medications Active Medications: Active Medications Generic Name Dose Route Start Last Admin Trade Name Freq PRN Reason Stop Dose Admin Albumin Human 12.5 gm 08/31/18 08:00 09/01/18 12:16 Albumin Human 25% (12.5 Gm/50 Ml) IV 12.5 gm Q4H TRAVIS Administration Albuterol/Ipratropium 3 ml 08/26/18 02:00 09/01/18 13:18 Duoneb 3 Mg/0.5 Mg (3 Ml) Ud IH 3 ml [id number] TRAVIS Administration Albuterol/Ipratropium 3 ml 08/25/18 20:01 08/25/18 23:35 Duoneb 3 Mg/0.5 Mg (3 Ml) Ud IH 3 ml Q2H PRN Administration Shortness of Breath Atorvastatin Calcium 80 mg 08/25/18 20:15 08/31/18 16:28 Lipitor PO Not Given DIN TRAVIS Carvedilol 12.5 mg 08/25/18 21:15 08/30/18 11:14 Coreg PO 12.5 mg BID TRAVIS Administration Docusate Sodium 100 mg 08/26/18 10:00 09/01/18 09:18 Colace PO Not Given BID TRAVIS Doxycycline Hyclate 100 mg 09/01/18 10:00 09/01/18 09:23 Doryx PO 09/06/18 10:01 100 mg Q12 TRAVIS Administration Protocol Furosemide 40 mg 08/30/18 10:00 09/01/18 09:24 Lasix IVP 40 mg DAILY TRAVIS Administration Glipizide 5 mg 08/29/18 10:45 08/31/18 07:45 Glucotrol PO Not Given ACB TRAVIS Pantoprazole Sodium 40 mg in 100 mls @ 20 mls/hr 08/30/18 15:00 09/01/18 09:29 Protonix 40mg Ivpb IVPB 20 mls/hr .Q5H TRAVIS Administration Cefepime HCl 1 gm in 100 mls @ 100 mls/hr 09/01/18 14:00 Maxipime 1gm IVPB 09/10/18 14:01 Q8 [facility] Protocol Insulin Human Lispro 0 units 08/31/18 08:00 09/01/18 12:05 Humalog High SC 2 units Q4 TRAVIS Administration Protocol Lactulose 20 gm 08/31/18 14:00 09/01/18 09:25 Enulose PO 20 gm TID TRAVIS Administration Losartan Potassium 25 mg 08/27/18 12:30 08/30/18 11:14 Cozaar PO 25 mg DAILY TRAVIS Administration Rifaximin 550 mg 08/31/18 10:00 09/01/18 09:23 Xifaxan PO 550 mg BID TRAVIS Administration Protocol - Patient Studies Lab Studies: Microbiology Studies 08/30/18 21:47 MRSA Culture (Admit) - Final Nose MRSA NOT DETECTED Lab Studies 09/01/18 09/01/18 09/01/18 Range/Units 12:00 07:40 06:50 WBC 10.9 (4.5-11.0) 10^3/uL RBC 2.86 L (3.5-6.1) 10^6/uL Hgb 7.2 L (14.0-18.0) g/dL Hct 23.3 L (42.0-52.0) % MCV 81.5 (80.0-105.0) fl MCH 25.2 (25.0-35.0) pg MCHC 30.9 L (31.0-37.0) g/dl RDW 18.7 H (11.5-14.5) % Plt Count 124 (120.0-450.0) 10^3/uL MPV 10.4 (7.0-11.0) fl PT 13.8 H (9.4-12.5) SECONDS INR 1.20 APTT (25.1-36.5) Seconds pCO2 (35-45) mm/Hg pO2 (80-100) mm/Hg HCO3 (21-28) mmol/L ABG pH (7.35-7.45) ABG Total CO2 (22-28) mmol.L ABG O2 Saturation (95-98) % ABG O2 Content (15-23) ML/dl ABG Base Excess (-2.0-3.0) mmol/L ABG Hemoglobin (11.7-17.4) g/dL ABG Carboxyhemoglobin (0.5-1.5) % POC ABG HHb (Measured) (0-5) % ABG Methemoglobin (0.0-3.0) % ABG O2 Capacity (16-24) mL/dl ABG Potassium (3.6-5.2) mmol/L VBG pH (7.32-7.43) VBG pCO2 (40-60) VBG HCO3 (21-28) mmol/l VBG Total CO2 (22-28) mmol.L VBG O2 Sat (Calc) (40-65) % VBG Base Excess (0.0-2.0) mmol/L VBG Potassium (3.6-5.2) mmol/L Hgb O2 Saturation (95.0-98.0) % Sodium (132-148) mmol/L Chloride (98-107) mmol/L Glucose (75-110) mg/dl Lactate (0.7-2.1) mmol/L Mechanical Rate FiO2 % Tidal Volume PEEP Potassium (3.6-5.0) mmol/L Carbon Dioxide (21-33) mmol/L Anion Gap (10-20) BUN (7-21) mg/dL Creatinine (0.8-1.5) mg/dl Est GFR ( Amer) Est GFR (Non-Af Amer) Random Glucose (70-110) mg/dL Calcium (8.4-10.5) mg/dL Phosphorus (2.5-4.5) mg/dL Magnesium (1.7-2.2) mg/dL Total Bilirubin (0.2-1.3) mg/dL AST (17-59) U/L ALT (7-56) U/L Alkaline Phosphatase (38-126) U/L Total Protein (5.8-8.3) g/dL Albumin (3.0-4.8) g/dL Globulin gm/dL Albumin/Globulin Ratio (1.1-1.8) Procalcitonin 0.24 (0.19-0.49) NG/ML Arterial Blood Potassium (3.6-5.2) mmol/L Venous Blood Potassium (3.6-5.2) mmol/L IgG (700.0-1600.0) mg/dL IgM (40.0-230.0) mg/dL MARITZA Screen (Negative) Blood Type Antibody Screen Crossmatch BBK History Checked 09/01/18 09/01/18 09/01/18 Range/Units 05:20 05:20 00:30 WBC 13.2 H 14.3 H D (4.5-11.0) 10^3/uL RBC 2.86 L 3.09 L (3.5-6.1) 10^6/uL Hgb 7.3 L 8.0 L (14.0-18.0) g/dL Hct 23.1 L 24.7 L (42.0-52.0) % MCV 80.8 79.9 L (80.0-105.0) fl MCH 25.5 25.9 (25.0-35.0) pg MCHC 31.6 32.4 (31.0-37.0) g/dl RDW 18.4 H 18.1 H (11.5-14.5) % Plt Count 121 121 (120.0-450.0) 10^3/uL MPV 10.3 9.7 (7.0-11.0) fl PT (9.4-12.5) SECONDS INR APTT (25.1-36.5) Seconds pCO2 (35-45) mm/Hg pO2 (80-100) mm/Hg HCO3 (21-28) mmol/L ABG pH (7.35-7.45) ABG Total CO2 (22-28) mmol.L ABG O2 Saturation (95-98) % ABG O2 Content (15-23) ML/dl ABG Base Excess (-2.0-3.0) mmol/L ABG Hemoglobin (11.7-17.4) g/dL ABG Carboxyhemoglobin (0.5-1.5) % POC ABG HHb (Measured) (0-5) % ABG Methemoglobin (0.0-3.0) % ABG O2 Capacity (16-24) mL/dl ABG Potassium (3.6-5.2) mmol/L VBG pH (7.32-7.43) VBG pCO2 (40-60) VBG HCO3 (21-28) mmol/l VBG Total CO2 (22-28) mmol.L VBG O2 Sat (Calc) (40-65) % VBG Base Excess (0.0-2.0) mmol/L VBG Potassium (3.6-5.2) mmol/L Hgb O2 Saturation (95.0-98.0) % Sodium 150 H (132-148) mmol/L Chloride 108 H (98-107) mmol/L Glucose (75-110) mg/dl Lactate (0.7-2.1) mmol/L Mechanical Rate FiO2 % Tidal Volume PEEP Potassium 4.2 (3.6-5.0) mmol/L Carbon Dioxide 39 H (21-33) mmol/L Anion Gap 7 L (10-20) BUN 72 H (7-21) mg/dL Creatinine 1.0 (0.8-1.5) mg/dl Est GFR ( Amer) > 60 Est GFR (Non-Af Amer) > 60 Random Glucose 161 H (70-110) mg/dL Calcium 8.1 L (8.4-10.5) mg/dL Phosphorus 3.1 (2.5-4.5) mg/dL Magnesium 1.8 (1.7-2.2) mg/dL Total Bilirubin 0.9 (0.2-1.3) mg/dL AST 38 (17-59) U/L ALT 29 (7-56) U/L Alkaline Phosphatase 133 H (38-126) U/L Total Protein 6.3 (5.8-8.3) g/dL Albumin 2.8 L (3.0-4.8) g/dL Globulin 3.5 gm/dL Albumin/Globulin Ratio 0.8 L (1.1-1.8) Procalcitonin (0.19-0.49) NG/ML Arterial Blood Potassium (3.6-5.2) mmol/L Venous Blood Potassium (3.6-5.2) mmol/L IgG (700.0-1600.0) mg/dL IgM (40.0-230.0) mg/dL MARITZA Screen (Negative) Blood Type Antibody Screen Crossmatch BBK History Checked 08/31/18 08/31/18 08/31/18 Range/Units 20:57 20:50 17:50 WBC (4.5-11.0) 10^3/uL RBC (3.5-6.1) 10^6/uL Hgb (14.0-18.0) g/dL Hct (42.0-52.0) % MCV (80.0-105.0) fl MCH (25.0-35.0) pg MCHC (31.0-37.0) g/dl RDW (11.5-14.5) % Plt Count (120.0-450.0) 10^3/uL MPV (7.0-11.0) fl PT (9.4-12.5) SECONDS INR APTT (25.1-36.5) Seconds pCO2 54 H (35-45) mm/Hg pO2 101.0 H 81 H (80-100) mm/Hg HCO3 38.4 H (21-28) mmol/L ABG pH 7.46 H (7.35-7.45) ABG Total CO2 40.1 H (22-28) mmol.L ABG O2 Saturation 98.6 H (95-98) % ABG O2 Content 9.8 L (15-23) ML/dl ABG Base Excess 13.2 H (-2.0-3.0) mmol/L ABG Hemoglobin 7.1 L (11.7-17.4) g/dL ABG Carboxyhemoglobin 1.9 H (0.5-1.5) % POC ABG HHb (Measured) 1.4 (0-5) % ABG Methemoglobin 0.9 (0.0-3.0) % ABG O2 Capacity 9.9 L (16-24) mL/dl ABG Potassium (3.6-5.2) mmol/L VBG pH 7.44 H (7.32-7.43) VBG pCO2 57.0 (40-60) VBG HCO3 38.7 H (21-28) mmol/l VBG Total CO2 40.4 H (22-28) mmol.L VBG O2 Sat (Calc) 97.8 H (40-65) % VBG Base Excess 12.1 H (0.0-2.0) mmol/L VBG Potassium 4.0 (3.6-5.2) mmol/L Hgb O2 Saturation 95.8 (95.0-98.0) % Sodium 152.0 H 147 (132-148) mmol/L Chloride 110.0 H 107 (98-107) mmol/L Glucose 183 H (75-110) mg/dl Lactate 3.9 H (0.7-2.1) mmol/L Mechanical Rate FiO2 30.0 21.0 % Tidal Volume PEEP Potassium 3.9 (3.6-5.0) mmol/L Carbon Dioxide 36 H (21-33) mmol/L Anion Gap 7 L (10-20) BUN 70 H (7-21) mg/dL Creatinine 1.0 (0.8-1.5) mg/dl Est GFR ( Amer) > 60 Est GFR (Non-Af Amer) > 60 Random Glucose 197 H (70-110) mg/dL Calcium 7.4 L (8.4-10.5) mg/dL Phosphorus (2.5-4.5) mg/dL Magnesium (1.7-2.2) mg/dL Total Bilirubin 1.0 (0.2-1.3) mg/dL AST 35 (17-59) U/L ALT 33 (7-56) U/L Alkaline Phosphatase 143 H (38-126) U/L Total Protein 5.6 L (5.8-8.3) g/dL Albumin 2.2 L (3.0-4.8) g/dL Globulin 3.4 gm/dL Albumin/Globulin Ratio 0.7 L (1.1-1.8) Procalcitonin (0.19-0.49) NG/ML Arterial Blood Potassium (3.6-5.2) mmol/L Venous Blood Potassium 4.0 (3.6-5.2) mmol/L IgG (700.0-1600.0) mg/dL IgM (40.0-230.0) mg/dL MARITZA Screen (Negative) Blood Type Antibody Screen Crossmatch BBK History Checked 08/31/18 08/31/18 08/31/18 Range/Units 17:50 17:50 17:00 WBC 11.9 H D (4.5-11.0) 10^3/uL RBC 2.94 L (3.5-6.1) 10^6/uL Hgb 7.6 L (14.0-18.0) g/dL Hct 23.1 L (42.0-52.0) % MCV 78.6 L (80.0-105.0) fl MCH 25.9 (25.0-35.0) pg MCHC 32.9 (31.0-37.0) g/dl RDW 17.5 H (11.5-14.5) % Plt Count 101 L (120.0-450.0) 10^3/uL MPV 9.0 (7.0-11.0) fl PT 13.4 H (9.4-12.5) SECONDS INR 1.17 APTT 28.4 (25.1-36.5) Seconds pCO2 50 H (35-45) mm/Hg pO2 105.0 H (80-100) mm/Hg HCO3 36.4 H (21-28) mmol/L ABG pH 7.47 H (7.35-7.45) ABG Total CO2 37.9 H (22-28) mmol.L ABG O2 Saturation 98.9 H (95-98) % ABG O2 Content (15-23) ML/dl ABG Base Excess 10.9 H (-2.0-3.0) mmol/L ABG Hemoglobin (11.7-17.4) g/dL ABG Carboxyhemoglobin (0.5-1.5) % POC ABG HHb (Measured) (0-5) % ABG Methemoglobin (0.0-3.0) % ABG O2 Capacity (16-24) mL/dl ABG Potassium 3.8 (3.6-5.2) mmol/L VBG pH (7.32-7.43) VBG pCO2 (40-60) VBG HCO3 (21-28) mmol/l VBG Total CO2 (22-28) mmol.L VBG O2 Sat (Calc) (40-65) % VBG Base Excess (0.0-2.0) mmol/L VBG Potassium (3.6-5.2) mmol/L Hgb O2 Saturation (95.0-98.0) % Sodium 152.0 H (132-148) mmol/L Chloride 109.0 H (98-107) mmol/L Glucose 204 H (75-110) mg/dl Lactate 3.3 H (0.7-2.1) mmol/L Mechanical Rate 16 FiO2 30.0 % Tidal Volume 500 PEEP 5 Potassium (3.6-5.0) mmol/L Carbon Dioxide (21-33) mmol/L Anion Gap (10-20) BUN (7-21) mg/dL Creatinine (0.8-1.5) mg/dl Est GFR ( Amer) Est GFR (Non-Af Amer) Random Glucose (70-110) mg/dL Calcium (8.4-10.5) mg/dL Phosphorus (2.5-4.5) mg/dL Magnesium (1.7-2.2) mg/dL Total Bilirubin (0.2-1.3) mg/dL AST (17-59) U/L ALT (7-56) U/L Alkaline Phosphatase (38-126) U/L Total Protein (5.8-8.3) g/dL Albumin (3.0-4.8) g/dL Globulin gm/dL Albumin/Globulin Ratio (1.1-1.8) Procalcitonin (0.19-0.49) NG/ML Arterial Blood Potassium 3.8 (3.6-5.2) mmol/L Venous Blood Potassium (3.6-5.2) mmol/L IgG (700.0-1600.0) mg/dL IgM (40.0-230.0) mg/dL MAR[facility]ZA Screen (Negative) Blood Type Antibody Screen Crossmatch BBK History Checked 08/31/18 08/31/18 08/30/18 Range/Units 10:40 10:00 10:35 WBC (4.5-11.0) 10^3/uL RBC (3.5-6.1) 10^6/uL Hgb (14.0-18.0) g/dL Hct (42.0-52.0) % MCV (80.0-105.0) fl MCH (25.0-35.0) pg MCHC (31.0-37.0) g/dl RDW (11.5-14.5) % Plt Count (120.0-450.0) 10^3/uL MPV (7.0-11.0) fl PT (9.4-12.5) SECONDS INR APTT (25.1-36.5) Seconds pCO2 (35-45) mm/Hg pO2 (80-100) mm/Hg HCO3 (21-28) mmol/L ABG pH (7.35-7.45) ABG Total CO2 (22-28) mmol.L ABG O2 Saturation (95-98) % ABG O2 Content (15-23) ML/dl ABG Base Excess (-2.0-3.0) mmol/L ABG Hemoglobin (11.7-17.4) g/dL ABG Carboxyhemoglobin (0.5-1.5) % POC ABG HHb (Measured) (0-5) % ABG Methemoglobin (0.0-3.0) % ABG O2 Capacity (16-24) mL/dl ABG Potassium (3.6-5.2) mmol/L VBG pH (7.32-7.43) VBG pCO2 (40-60) VBG HCO3 (21-28) mmol/l VBG Total CO2 (22-28) mmol.L VBG O2 Sat (Calc) (40-65) % VBG Base Excess (0.0-2.0) mmol/L VBG Potassium (3.6-5.2) mmol/L Hgb O2 Saturation (95.0-98.0) % Sodium (132-148) mmol/L Chloride (98-107) mmol/L Glucose (75-110) mg/dl Lactate (0.7-2.1) mmol/L Mechanical Rate FiO2 % Tidal Volume PEEP Potassium (3.6-5.0) mmol/L Carbon Dioxide (21-33) mmol/L Anion Gap (10-20) BUN (7-21) mg/dL Creatinine (0.8-1.5) mg/dl Est GFR ( Amer) Est GFR (Non-Af Amer) Random Glucose (70-110) mg/dL Calcium (8.4-10.5) mg/dL Phosphorus (2.5-4.5) mg/dL Magnesium (1.7-2.2) mg/dL Total Bilirubin (0.2-1.3) mg/dL AST (17-59) U/L ALT (7-56) U/L Alkaline Phosphatase (38-126) U/L Total Protein (5.8-8.3) g/dL Albumin (3.0-4.8) g/dL Globulin gm/dL Albumin/Globulin Ratio (1.1-1.8) Procalcitonin (0.19-0.49) NG/ML Arterial Blood Potassium (3.6-5.2) mmol/L Venous Blood Potassium (3.6-5.2) mmol/L IgG 2158.1 H (700.0-1600.0) mg/dL IgM 145.9 (40.0-230.0) mg/dL MARITZA Screen Negative (Negative) Blood Type A POSITIVE Antibody Screen Negative Crossmatch See Detail BBK History Checked Patient has bt Laboratory Results - last 24 hr 08/30/18 08/31/18 08/31/18 10:35 10:00 10:40 WBC RBC Hgb Hct MCV MCH MCHC RDW Plt Count MPV PT INR APTT pCO2 pO2 HCO3 ABG pH ABG Total CO2 ABG O2 Saturation ABG O2 Content ABG Base Excess ABG Hemoglobin ABG Carboxyhemoglobin POC ABG HHb (Measured) ABG Methemoglobin ABG O2 Capacity ABG Potassium VBG pH VBG pCO2 VBG HCO3 VBG Total CO2 VBG O2 Sat (Calc) VBG Base Excess VBG Potassium Hgb O2 Saturation Sodium Chloride Glucose Lactate Mechanical Rate FiO2 Tidal Volume PEEP Potassium Carbon Dioxide Anion Gap BUN Creatinine Est GFR ( Amer) Est GFR (Non-Af Amer) Random Glucose Calcium Phosphorus Magnesium Total Bilirubin AST ALT Alkaline Phosphatase Total Protein Albumin Globulin Albumin/Globulin Ratio Procalcitonin Arterial Blood Potassium Venous Blood Potassium IgG 2158.1 H IgM 145.9 MARITZA Screen Negative Blood Type A POSITIVE Antibody Screen Negative Crossmatch See Detail BBK History Checked Patient has bt 08/31/18 08/31/18 08/31/18 17:00 17:50 17:50 WBC 11.9 H D RBC 2.94 L Hgb 7.6 L Hct 23.1 L MCV 78.6 L MCH 25.9 MCHC 32.9 RDW 17.5 H Plt Count 101 L MPV 9.0 PT 13.4 H INR 1.17 APTT 28.4 pCO2 50 H pO2 105.0 H HCO3 36.4 H ABG pH 7.47 H ABG Total CO2 37.9 H ABG O2 Saturation 98.9 H ABG O2 Content ABG Base Excess 10.9 H ABG Hemoglobin ABG Carboxyhemoglobin POC ABG HHb (Measured) ABG Methemoglobin ABG O2 Capacity ABG Potassium 3.8 VBG pH VBG pCO2 VBG HCO3 VBG Total CO2 VBG O2 Sat (Calc) VBG Base Excess VBG Potassium Hgb O2 Saturation Sodium 152.0 H Chloride 109.0 H Glucose 204 H Lactate 3.3 H Mechanical Rate 16 FiO2 30.0 Tidal Volume 500 PEEP 5 Potassium Carbon Dioxide Anion Gap BUN Creatinine Est GFR ( Amer) Est GFR (Non-Af Amer) Random Glucose Calcium Phosphorus Magnesium Total Bilirubin AST ALT Alkaline Phosphatase Total Protein Albumin Globulin Albumin/Globulin Ratio Procalcitonin Arterial Blood Potassium 3.8 Venous Blood Potassium IgG IgM MARITZA Screen Blood Type Antibody Screen Crossmatch BBK History Checked 08/31/18 08/31/18 08/31/18 17:50 20:50 20:57 WBC RBC Hgb Hct MCV MCH MCHC RDW Plt Count MPV PT INR APTT pCO2 54 H pO2 81 H 101.0 H HCO3 38.4 H ABG pH 7.46 H ABG Total CO2 40.1 H ABG O2 Saturation 98.6 H ABG O2 Content 9.8 L ABG Base Excess 13.2 H ABG Hemoglobin 7.1 L ABG Carboxyhemoglobin 1.9 H POC ABG HHb (Measured) 1.4 ABG Methemoglobin 0.9 ABG O2 Capacity 9.9 L ABG Potassium VBG pH 7.44 H VBG pCO2 57.0 VBG HCO3 38.7 H VBG Total CO2 40.4 H VBG O2 Sat (Calc) 97.8 H VBG Base Excess 12.1 H VBG Potassium 4.0 Hgb O2 Saturation 95.8 Sodium 147 152.0 H Chloride 107 110.0 H Glucose 183 H Lactate 3.9 H Mechanical Rate FiO2 21.0 30.0 Tidal Volume PEEP Potassium 3.9 Carbon Dioxide 36 H Anion Gap 7 L BUN 70 H Creatinine 1.0 Est GFR ( Amer) > 60 Est GFR (Non-Af Amer) > 60 Random Glucose 197 H Calcium 7.4 L Phosphorus Magnesium Total Bilirubin 1.0 AST 35 ALT 33 Alkaline Phosphatase 143 H Total Protein 5.6 L Albumin 2.2 L Globulin 3.4 Albumin/Globulin Ratio 0.7 L Procalcitonin Arterial Blood Potassium Venous Blood Potassium 4.0 IgG IgM MAR[facility]ZA Screen Blood Type Antibody Screen Crossmatch BBK History Checked 09/01/18 09/01/18 09/01/18 00:30 05:20 05:20 WBC 14.3 H D 13.2 H RBC 3.09 L 2.86 L Hgb 8.0 L 7.3 L Hct 24.7 L 23.1 L MCV 79.9 L 80.8 MCH 25.9 25.5 MCHC 32.4 31.6 RDW 18.1 H 18.4 H Plt Count 121 121 MPV 9.7 10.3 PT INR APTT pCO2 pO2 HCO3 ABG pH ABG Total CO2 ABG O2 Saturation ABG O2 Content ABG Base Excess ABG Hemoglobin ABG Carboxyhemoglobin POC ABG HHb (Measured) ABG Methemoglobin ABG O2 Capacity ABG Potassium VBG pH VBG pCO2 VBG HCO3 VBG Total CO2 VBG O2 Sat (Calc) VBG Base Excess VBG Potassium Hgb O2 Saturation Sodium 150 H Chloride 108 H Glucose Lactate Mechanical Rate FiO2 Tidal Volume PEEP Potassium 4.2 Carbon Dioxide 39 H Anion Gap 7 L BUN 72 H Creatinine 1.0 Est GFR ( Amer) > 60 Est GFR (Non-Af Amer) > 60 Random Glucose 161 H Calcium 8.1 L Phosphorus 3.1 Magnesium 1.8 Total Bilirubin 0.9 AST 38 ALT 29 Alkaline Phosphatase 133 H Total Protein 6.3 Albumin 2.8 L Globulin 3.5 Albumin/Globulin Ratio 0.8 L Procalcitonin Arterial Blood Potassium Venous Blood Potassium IgG IgM MAR[facility]ZA Screen Blood Type Antibody Screen Crossmatch BBK History Checked 09/01/18 09/01/18 09/01/18 06:50 07:40 12:00 WBC 10.9 RBC 2.86 L Hgb 7.2 L Hct 23.3 L MCV 81.5 MCH 25.2 MCHC 30.9 L RDW 18.7 H Plt Count 124 MPV 10.4 PT 13.8 H INR 1.20 APTT pCO2 pO2 HCO3 ABG pH ABG Total CO2 ABG O2 Saturation ABG O2 Content ABG Base Excess ABG Hemoglobin ABG Carboxyhemoglobin POC ABG HHb (Measured) ABG Methemoglobin ABG O2 Capacity ABG Potassium VBG pH VBG pCO2 VBG HCO3 VBG Total CO2 VBG O2 Sat (Calc) VBG Base Excess VBG Potassium Hgb O2 Saturation Sodium Chloride Glucose Lactate Mechanical Rate FiO2 Tidal Volume PEEP Potassium Carbon Dioxide Anion Gap BUN Creatinine Est GFR ( Amer) Est GFR (Non-Af Amer) Random Glucose Calcium Phosphorus Magnesium Total Bilirubin AST ALT Alkaline Phosphatase Total Protein Albumin Globulin Albumin/Globulin Ratio Procalcitonin 0.24 Arterial Blood Potassium Venous Blood Potassium IgG IgM [facility]ZA Screen Blood Type Antibody Screen Crossmatch BBK History Checked Radiology Impressions: Radiology Impressions Chest X-Ray 08/31/18 15:27 IMPRESSION: Limited portable examination with patient rotation to the left. Endotracheal tube terminates 5 cm proximal to the abdi. Suspect developing pulmonary edema and pleural effusions. Critical Care Progress Note - Nutrition Nutrition: Nutrition Category Date Time Status Liquid Diet [DIET] Diets 09/01/18 Lunch Ordered Addendum Addendum: 09/01/18 15:08 MICU Attending Addendum: 53 M with PMHx HIV CD4 361 (not on HAART), COPD, CHF-rEF (ECHO on 05/10 showing EF 39% with septal hypokinesis), Biventricular HF, CAD s/p PCI, DM, HTN, HLD being managed for COPD/CHF exasc found to be grually severely anemia s/p EGD found to have multiple non-bleeding esophageal, gastric, and duodenal ulcers. Cont to monitor CBC given dramatic HB drop, I would expect his HB to be higher since he was given 6 unit PRBC f/u GI rec for ulcer and management of liver disease/cirrohsis cont lactulose of elevated NH3 / hepatic enceph monitor pulm status given massive volume transfusion and poor heart function Rest of care as above Alberto Mcintyre MD Pulmonary Critical Care Attending
--- NOTE | 2018-09-01 14:14 | PN ---
DATE: 09/01/2018 SUBJECTIVE: The patient is oriented to place. EGD was performed yesterday and the findings are consistent with nonbleeding esophageal ulcer, erythematous mucosa in the stomach, portal hypertension gastropathy, hemorrhaging in the gastric antrum, nonbleeding gastric ulcer, multiple nonbleeding duodenal ulcers. No specimen collected. LABORATORY DATA: Hemoglobin and hematocrit is 7.3 and 23.1, white count 15.2, platelet count 121,000. Today's SMA-7: Sodium 150, potassium 4.2, chloride 108, CO2 of 39, glucose 161, BUN 72, creatinine 1. Lactic acid 2.5. ASSESSMENT: 1. Biventricular failure. 2. Nonbleeding esophageal, gastric, and duodenal ulcers. 3. Portal hypertension gastropathy. 4. Anemia, status post packed red blood cell transfusion. 5. Human immunodeficiency virus positive. 6. Nonobstructive coronary artery disease involving the left anterior disease. 7. Prerenal azotemia. RECOMMENDATIONS: Continue current albumin infusion at 12.5 g every 4 hours. Continue Coreg 12.5 mg twice a day, Cozaar 25 mg once a day, doxycycline 100 mg p.o. twice a day, Enulose 20 mg t.i.d., glipizide 5 mg once daily, Lasix 40 mg Intravenously daily. Beny Salgado MD
--- NOTE | 2018-09-01 16:59 | CP.PCM.PN ---
<Elie Herr - Last Filed: 09/01/18 16:52> Subjective - Date & Time of Evaluation Date of Evaluation: 09/01/18 Time of Evaluation: 08:00 - Subjective Subjective: Elie Herr PGY-1 Progress Note for Hospitalist Service Patient seen and evaluated at bedside. Patient under ICU care. Patient s/p 6 units PRBC transfused. Patient denies nausea, vomiting, chest pain, leg pain, abdominal pain, cough, BRBPR, hemoptysis, and hematochezia. Lugo and nasal cannula in place. Patient shows signs of mild agitation at times. Objective - Vital Signs/Intake and Output Vital Signs (last 24 hours): Temp Pulse Resp BP Pulse Ox 97.9 F 86 13 156/74 H 97 09/01/18 08:00 09/01/18 16:01 09/01/18 16:01 09/01/18 16:01 09/01/18 16:01 Intake and Output: 09/01/18 09/01/18 06:59 18:59 Intake Total 565 Output Total 1200 Balance -635 - Medications Medications: Current Medications Albumin Human (Albumin Human 25% (12.5 Gm/50 Ml)) 12.5 gm IV Q4H [facility] Last Admin: 09/01/18 12:16 Dose: 12.5 gm Albuterol/Ipratropium (Duoneb 3 Mg/0.5 Mg (3 Ml) Ud) 3 ml IH [id number] [facility] Last Admin: 09/01/18 13:18 Dose: 3 ml Albuterol/Ipratropium (Duoneb 3 Mg/0.5 Mg (3 Ml) Ud) 3 ml IH Q2H PRN PRN Reason: Shortness of Breath Last Admin: 08/25/18 23:35 Dose: 3 ml Atorvastatin Calcium (Lipitor) 80 mg PO DIN [facility] Last Admin: 08/31/18 16:28 Dose: Not Given Carvedilol (Coreg) 12.5 mg PO BID [facility] Last Admin: 08/30/18 11:14 Dose: 12.5 mg Docusate Sodium (Colace) 100 mg PO BID [facility] Last Admin: 09/01/18 09:18 Dose: Not Given Doxycycline Hyclate (Doryx) 100 mg PO Q12 [facility]; Protocol Stop: 09/06/18 10:01 Last Admin: 09/01/18 09:23 Dose: 100 mg Furosemide (Lasix) 40 mg IVP DAILY [facility] Last Admin: 09/01/18 09:24 Dose: 40 mg Glipizide (Glucotrol) 5 mg PO ACB [facility] Last Admin: 08/31/18 07:45 Dose: Not Given Pantoprazole Sodium (Protonix 40mg Ivpb) 40 mg in 100 mls @ 20 mls/hr IVPB .Q5H [facility] Last Admin: 09/01/18 09:29 Dose: 20 mls/hr Cefepime HCl (Maxipime 1gm) 1 gm in 100 mls @ 100 mls/hr IVPB Q8 [facility]; Protocol Stop: 09/10/18 14:01 Insulin Human Lispro (Humalog High) 0 units SC Q4 [facility]; Protocol Last Admin: 09/01/18 12:05 Dose: 2 units Lactulose (Enulose) 20 gm PO TID [facility] Last Admin: 09/01/18 09:25 Dose: 20 gm Losartan Potassium (Cozaar) 25 mg PO DAILY [facility] Last Admin: 08/30/18 11:14 Dose: 25 mg Rifaximin (Xifaxan) 550 mg PO BID [facility]; Protocol Last Admin: 09/01/18 09:23 Dose: 550 mg - Labs Labs: 09/01/18 12:00 09/01/18 05:20 PT 13.8 SECONDS (9.4-12.5) H 09/01/18 06:50 INR 1.20 09/01/18 06:50 APTT 28.4 Seconds (25.1-36.5) 08/31/18 17:50 - Additional Findings Additional findings: - Constitutional Appears: Well, Non-toxic, No Acute Distress - Head Exam Head Exam: ATRAUMATIC, NORMAL INSPECTION, NORMOCEPHALIC - Eye Exam Eye Exam: EOMI Pupil Exam: PERRL - Respiratory Exam Respiratory Exam: Rhonchi bilaterally, NORMAL BREATHING PATTERN, on BiPAP at this time - Cardiovascular Exam Cardiovascular Exam: REGULAR RHYTHM, +S1+S2 - GI/Abdominal Exam GI & Abdominal Exam: Soft, Normal Bowel Sounds - Extremities Exam Extremities Exam: Full ROM. Chronic vascular epidermal changes to both LEs below knee - Neurological Exam Neurological Exam: Alert, Awake, CN II-XII Intact, Oriented x3 Assessment and Plan - Assessment and Plan (Free Text) Assessment: 53 year old male with past medical history of COPD, diabetes mellitus type II, HTN, HLD, systolic CHF with EF of 39%, CAD with stent, lumbar radiculopathy, gout, and questionable HIV presents with shortness of breath on admission after falling at home. CXR showed cardiomegaly with resolved pulmonary congestion. Echocardiogram from 05/07 showed mild concentric LVH, systolic function moderately impaired, septal hypokinesis, mild MR, moderate TR, mild pulmonary HTN, and aortic root mildly enlarged. Patient was found to be severely anemic yesterday. Hgb 7.3 s/p 6 units PRBC transfused. Plan: Severe anemia likely 2/2 UGI bleed vs varices vs ulcer - Hgb 7.3 this AM, s/p 6 units - melena reported - PT/INR 13.5/1.17 - Relative thrombocytopenia to 124 compared to baseline, improving and will continue to monitor - Octreotide drip per GI - Abdominal U/S showed patent portal vein, trace ascites. Limited study. - ICU consult placed - Dr. Alesha augustin appreciated - GI consult - Dr. Suzie augustin appreciated - EGD showed esophageal, duodenal and fastric ulcers, with coffee-ground emesis vs blood found in antrum. Moderate portal HTN gastropathy. - Gen Surg consulted - Dr. Vizcarra- for ? UGI bleed- - pain control, Diet per GI, monitor H/H. Hypotension- resolved - 139-156/66-74 today. Periods of hypotension 2 nights ago, lowest at 83/50. - Dobutamine drip and Albumin q4 - continue to monitor Shortness of Breath likely 2/2 to CHF exacerbation -CXR consistent with cardiomegaly, patient has noncompliance with BiPAP -BNP [id number] -Echocardiogram shows mild systolic congestive heart failure with EF of 39% from 04/2018 -For suspected COPD, patient should continue duonebs, azithromycin, and methylp rednisolone. Methylprednisolone dose was reduced to 40 mg IVP daily -For suspected CHF, patient should continue with coreg 12.5 mg BID per cardio. Clinically, patient does not have significant lower extremity edema. Patient was ordered Bipap for CHF as well. -Cardio consult- Dr. Salgado - Lasix changed to 40 mg IV daily, FOBT positive, Lactulose - f/u sputum culture Doxycycline and Cefepime per ID Leukocytosis likely 2/2 acute infection -WBC: 13.2 - repeat CXR shows bilateral vascular congestion - Repeat Procal 0.24 - Doxy and Cefepime - f/u repeat blood cultures, f/u sputum cx - continue to monitor Severe Agitation 2/2 Hepatic encephalopathy vs schizophrenia vs. alcohol withdrawal -Abdominal ultrasound suggests hepatocellular disease or cirrhosis. Trace ascites. - On Rifaximin 550 mg BID, Lactulose 20 gm TID - Ammonia 49 initially, 66 on 08/31 -Psychiatry consult for other possible causes of agitation such as schizophrenia placed- no psych indication for continued follow up, and delirium may take few weeks to resolve CAD with stent -EKG: Atrial fibrillation, right bundle branch block, HR of 88 -Troponinx3: 0.06, 0.06, 0.05. Unlikely ME. Elevation likely due to CORAZON -Cardiac catheterization in 12/2017 showed LAD lesion 80% -Continue with aspirin, antiHTN meds held -TSH: 2.41, LDL: 75 -ICU monitoring -History of use of life vest CORAZON Cr at baseline -BUN/Cr ratio more than 20:1 so likely prerenal cause, dehydration from repeated administration of lasix for suspected CHF Diabetes mellitus type II -Accuchecks -HgbA1c: 6.9 -Hypoglycemia protocol -CLD -Lispro high, Glipizide held Obstructive Sleep Apnea -Continue with CPAP/BiPap at night Hypertension - coreg, cozaar held in light of recent hypotension. Will resume if consistently hypertensive Constipation -Continue with colace Hyperlipidemia -Lipid panel unremarkable -Continue with lipitor History of HIV -HIV antibody reactive with 3.33 on PCR - CD4 count 361 - MRSA nose negative - f/u sputum culture GI prophylaxis: Protonix drip in light of GI bleed, for 72 hours per GI DVT prophylaxis: heparin 5000 U Q8 held in light of anemia Dispo: clear liquid diet. Awaiting PT recs. Patient would like to return home after hospitalization. Patient seen, case reviewed and plan approved by Dr. Kwan. Elie Herr, PGY-1 <Vik Kwan - Last Filed: 09/01/18 18:20> Objective - Vital Signs/Intake and Output Vital Signs (last 24 hours): Temp Pulse Resp BP Pulse Ox 97.8 F 90 16 156/74 H 93 L 09/01/18 16:00 09/01/18 17:01 09/01/18 17:01 09/01/18 16:01 09/01/18 17:01 Intake and Output: 09/01/18 09/01/18 06:59 18:59 Intake Total 565 Output Total 1200 Balance -635 - Medications Medications: Current Medications Albumin Human (Albumin Human 25% (12.5 Gm/50 Ml)) 12.5 gm IV Q4H [facility] Last Admin: 09/01/18 16:54 Dose: 12.5 gm Albuterol/Ipratropium (Duoneb 3 Mg/0.5 Mg (3 Ml) Ud) 3 ml IH [id number] [facility] Last Admin: 09/01/18 13:18 Dose: 3 ml Albuterol/Ipratropium (Duoneb 3 Mg/0.5 Mg (3 Ml) Ud) 3 ml IH Q2H PRN PRN Reason: Shortness of Breath Last Admin: 08/25/18 23:35 Dose: 3 ml Atorvastatin Calcium (Lipitor) 80 mg PO DIN [facility] Last Admin: 09/01/18 16:54 Dose: 80 mg Carvedilol (Coreg) 12.5 mg PO BID [facility] Last Admin: 08/30/18 11:14 Dose: 12.5 mg Docusate Sodium (Colace) 100 mg PO BID [facility] Last Admin: 09/01/18 17:04 Dose: Not Given Doxycycline Hyclate (Doryx) 100 mg PO Q12 [facility]; Protocol Stop: 09/06/18 10:01 Last Admin: 09/01/18 09:23 Dose: 100 mg Furosemide (Lasix) 40 mg IVP DAILY [facility] Last Admin: 09/01/18 09:24 Dose: 40 mg Glipizide (Glucotrol) 5 mg PO ACB [facility] Last Admin: 08/31/18 07:45 Dose: Not Given Pantoprazole Sodium (Protonix 40mg Ivpb) 40 mg in 100 mls @ 20 mls/hr IVPB .Q5H [facility] Last Admin: 09/01/18 16:45 Dose: 20 mls/hr Cefepime HCl (Maxipime 1gm) 1 gm in 100 mls @ 100 mls/hr IVPB Q8 [facility]; Protocol Stop: 09/10/18 14:01 Last Admin: 09/01/18 17:03 Dose: 100 mls/hr Insulin Human Lispro (Humalog High) 0 units SC Q4 [facility]; Protocol Last Admin: 09/01/18 16:50 Dose: 7 units Lactulose (Enulose) 20 gm PO TID [facility] Last Admin: 09/01/18 17:03 Dose: 20 gm Losartan Potassium (Cozaar) 25 mg PO DAILY [facility] Last Admin: 08/30/18 11:14 Dose: 25 mg Rifaximin (Xifaxan) 550 mg PO BID [facility]; Protocol Last Admin: 09/01/18 17:03 Dose: 550 mg - Labs Labs: 09/01/18 12:00 09/01/18 05:20 PT 13.8 SECONDS (9.4-12.5) H 09/01/18 06:50 INR 1.20 09/01/18 06:50 APTT 28.4 Seconds (25.1-36.5) 08/31/18 17:50 Attending/Attestation - Attestation I have personally seen and examined this patient.: Yes I have fully participated in the care of the patient.: Yes I have reviewed all pertinent clinical information, including history, physical exam and plan: Yes
[2018-09-01] MEDS: Cefepime 1gm in NS 100ml 1 GM/100 ML BAG IVPB SCH ×2 (17:03→21:18)
[2018-09-01 23:03] LABS: MEAN CORPUSCULAR HEMOGLOBIN 25.6 pg (25.0-35.0); MEAN CORPUSCULAR HGB CONC 31.2 g/dl (31.0-37.0); MEAN PLATELET VOLUME 9.7 fl (7.0-11.0); RBC 2.5 10^6/uL (3.5-6.1); RED CELL DISTRIBUTION WIDTH 19.6 % (11.5-14.5); WHITE BLOOD COUNT 10.3 10^3/uL (4.5-11.0)
[2018-09-01 23:07] LABS: HEMOGLOBIN 6.4 g/dL (14.0-18.0)
[2018-09-02] MEDS: Insulin Lispro (HUMAlog) HIGH Coverage SC SCH ×6 (00:10→22:00)
[2018-09-02] MEDS: Albuterol-Ipratrop 3 mg / 0.5 (3 ml) UD IH SCH ×4 (01:21→19:08)
[2018-09-02] MEDS: Albumin Human 25% (12.5 gm/50 ml) IV SCH ×6 (01:44→20:20)
--- NOTE | 2018-09-02 02:20 | CP.PCM.PN ---
Subjective - Date & Time of Evaluation Date of Evaluation: 09/02/18 Time of Evaluation: 02:19 - Subjective Subjective: # 20 angiocath was inserted in right upper arm. Objective - Vital Signs/Intake and Output Vital Signs (last 24 hours): Temp Pulse Resp BP Pulse Ox 98.6 F 88 18 129/66 100 09/02/18 00:52 09/02/18 00:52 09/02/18 00:52 09/02/18 01:45 09/01/18 20:01 Intake and Output: 09/01/18 09/02/18 18:59 06:59 Intake Total 2410 375 Output Total 4400 Balance -1989 375 - Medications Medications: Current Medications Albumin Human (Albumin Human 25% (12.5 Gm/50 Ml)) 12.5 gm IV Q4H [facility] Last Admin: 09/02/18 01:44 Dose: 12.5 gm Albuterol/Ipratropium (Duoneb 3 Mg/0.5 Mg (3 Ml) Ud) 3 ml IH [id number] [facility] Last Admin: 09/02/18 01:21 Dose: 3 ml Albuterol/Ipratropium (Duoneb 3 Mg/0.5 Mg (3 Ml) Ud) 3 ml IH Q2H PRN PRN Reason: Shortness of Breath Last Admin: 08/25/18 23:35 Dose: 3 ml Atorvastatin Calcium (Lipitor) 80 mg PO DIN [facility] Last Admin: 09/01/18 16:54 Dose: 80 mg Carvedilol (Coreg) 12.5 mg PO BID [facility] Last Admin: 08/30/18 11:14 Dose: 12.5 mg Docusate Sodium (Colace) 100 mg PO BID [facility] Last Admin: 09/01/18 17:04 Dose: Not Given Doxycycline Hyclate (Doryx) 100 mg PO Q12 [facility]; Protocol Stop: 09/06/18 10:01 Last Admin: 09/01/18 21:17 Dose: 100 mg Furosemide (Lasix) 40 mg IVP DAILY [facility] Last Admin: 09/01/18 09:24 Dose: 40 mg Furosemide (Lasix) 40 mg IVP ONCE ONE Stop: 09/02/18 03:01 Last Admin: 09/02/18 01:45 Dose: 40 mg Glipizide (Glucotrol) 5 mg PO ACB [facility] Last Admin: 08/31/18 07:45 Dose: Not Given Pantoprazole Sodium (Protonix 40mg Ivpb) 40 mg in 100 mls @ 20 mls/hr IVPB .Q5H [facility] Last Admin: 09/01/18 22:21 Dose: 20 mls/hr Cefepime HCl (Maxipime 1gm) 1 gm in 100 mls @ 100 mls/hr IVPB Q8 [facility]; Protocol Stop: 09/10/18 14:01 Last Admin: 09/01/18 21:18 Dose: 100 mls/hr Insulin Human Lispro (Humalog High) 0 units SC Q4 [facility]; Protocol Last Admin: 09/02/18 00:10 Dose: Not Given Lactulose (Enulose) 20 gm PO TID [facility] Last Admin: 09/01/18 17:03 Dose: 20 gm Losartan Potassium (Cozaar) 25 mg PO DAILY [facility] Last Admin: 08/30/18 11:14 Dose: 25 mg Rifaximin (Xifaxan) 550 mg PO BID [facility]; Protocol Last Admin: 09/01/18 17:03 Dose: 550 mg - Labs Labs: 09/01/18 22:56 09/01/18 05:20 PT 13.8 SECONDS (9.4-12.5) H 09/01/18 06:50 INR 1.20 09/01/18 06:50 APTT 28.4 Seconds (25.1-36.5) 08/31/18 17:50
[2018-09-02] MEDS: Cefepime 1gm in NS 100ml 1 GM/100 ML BAG IVPB SCH ×3 (04:32→22:10)
[2018-09-02] MEDS: Pantoprazole 40mg/100mL NS 40 MG/100 ML BAG IVPB SCH ×3 (04:34→15:01)
[2018-09-02 06:39] LABS: MEAN CELL VOLUME 82.6 fl (80.0-105.0); MEAN CORPUSCULAR HEMOGLOBIN 25.7 pg (25.0-35.0); MEAN CORPUSCULAR HGB CONC 31.1 g/dl (31.0-37.0); MEAN PLATELET VOLUME 10.1 fl (7.0-11.0); RBC 2.18 10^6/uL (3.5-6.1); RED CELL DISTRIBUTION WIDTH 19.2 % (11.5-14.5); WHITE BLOOD COUNT 11.5 10^3/uL (4.5-11.0)
[2018-09-02 06:43] LABS: INR 1.31; PROTHROMBIN TIME 15.1 SECONDS (9.4-12.5)
[2018-09-02 06:55] LABS: HEMOGLOBIN 5.6 g/dL (14.0-18.0)
[2018-09-02 07:07] LABS: ALB/GLOB RATIO 0.8 (1.1-1.8); ALBUMIN 2.7 g/dL (3.0-4.8); ALT/SGPT 33 U/L (7-56); AST/SGOT 29 U/L (17-59); BLOOD UREA NITROGEN 57 mg/dL (7-21); CALCIUM 8.2 mg/dL (8.4-10.5); GFR NON-AFRICAN AMERICAN > 60
[2018-09-02 07:58] LABS: BILIRUBIN,DIRECT 0.6 mg/dL (0.0-0.4)
[2018-09-02] MEDS ORDERED: Potassium Phosphate 15 MMOLE in Sodium Chloride 0.9% 250 ML IVPB ONE (08:15)
[2018-09-02] MEDS ORDERED: Potassium Phosphate 3 mmol/ml Inj IV ONE (08:30)
--- NOTE | 2018-09-02 09:00 | CP.PCM.PN ---
Subjective - Date & Time of Evaluation Date of Evaluation: 09/02/18 Time of Evaluation: 07:00 - Subjective Subjective: PGY6 GI Fellow Progress Note Patient seen and examined bedside this morning. The patient is delirious and unable to provide any history. Overnight, episodes of melena continued. HGB again dropped to 5. Patient denies any complaints when prompted but difficult to assess given mentation. 12 system ROS performed and negative except where stated Objective - Vital Signs/Intake and Output Vital Signs (last 24 hours): Temp Pulse Resp BP Pulse Ox 98.4 F 87 20 163/81 H 100 09/02/18 08:00 09/02/18 08:13 09/02/18 08:13 09/02/18 08:17 09/02/18 08:13 Intake and Output: 09/02/18 09/02/18 06:59 18:59 Intake Total 1140 Output Total 3400 Balance -2260 - Medications Medications: Current Medications Albumin Human (Albumin Human 25% (12.5 Gm/50 Ml)) 12.5 gm IV Q4H [facility] Last Admin: 09/02/18 07:59 Dose: 12.5 gm Albuterol/Ipratropium (Duoneb 3 Mg/0.5 Mg (3 Ml) Ud) 3 ml IH [id number] [facility] Last Admin: 09/02/18 07:17 Dose: 3 ml Albuterol/Ipratropium (Duoneb 3 Mg/0.5 Mg (3 Ml) Ud) 3 ml IH Q2H PRN PRN Reason: Shortness of Breath Last Admin: 08/25/18 23:35 Dose: 3 ml Atorvastatin Calcium (Lipitor) 80 mg PO DIN [facility] Last Admin: 09/01/18 16:54 Dose: 80 mg Carvedilol (Coreg) 12.5 mg PO BID [facility] Last Admin: 08/30/18 11:14 Dose: 12.5 mg Docusate Sodium (Colace) 100 mg PO BID [facility] Last Admin: 09/01/18 17:04 Dose: Not Given Doxycycline Hyclate (Doryx) 100 mg PO Q12 [facility]; Protocol Stop: 09/06/18 10:01 Last Admin: 09/01/18 21:17 Dose: 100 mg Furosemide (Lasix) 40 mg IVP DAILY [facility] Last Admin: 09/01/18 09:24 Dose: 40 mg Glipizide (Glucotrol) 5 mg PO ACB [facility] Last Admin: 08/31/18 07:45 Dose: Not Given Pantoprazole Sodium (Protonix 40mg Ivpb) 40 mg in 100 mls @ 20 mls/hr IVPB .Q5H [facility] Last Admin: 09/02/18 04:34 Dose: 20 mls/hr Cefepime HCl (Maxipime 1gm) 1 gm in 100 mls @ 100 mls/hr IVPB Q8 [facility]; Protocol Stop: 09/10/18 14:01 Last Admin: 09/02/18 04:32 Dose: 100 mls/hr Potassium Chloride (Potassium Chloride 10 Meq/100 Ml) 10 meq in 100 mls @ 50 mls/hr IVPB Q2H [facility] Stop: 09/02/18 13:59 Potassium Phosphate 15 mmole/ (Sodium Chloride) 255 mls @ 42.5 mls/hr IVPB ONCE ONE Stop: 09/02/18 14:14 Insulin Human Lispro (Humalog High) 0 units SC Q4 [facility]; Protocol Last Admin: 09/02/18 08:00 Dose: 2 units Lactulose (Enulose) 20 gm PO TID [facility] Last Admin: 09/01/18 17:03 Dose: 20 gm Losartan Potassium (Cozaar) 25 mg PO DAILY [facility] Last Admin: 08/30/18 11:14 Dose: 25 mg Rifaximin (Xifaxan) 550 mg PO BID [facility]; Protocol Last Admin: 09/01/18 17:03 Dose: 550 mg - Labs Labs: 09/02/18 05:00 09/02/18 05:00 PT 15.1 SECONDS (9.4-12.5) H 09/02/18 05:00 INR 1.31 09/02/18 05:00 APTT 28.4 Seconds (25.1-36.5) 08/31/18 17:50 - Constitutional Appears: Confused, Chronically Ill - Eye Exam Eye Exam: PERRL - ENT Exam ENT Exam: Mucous Membranes Dry - Respiratory Exam Respiratory Exam: Clear to Ausculation Bilateral. absent: Rales, Rhonchi, Wheezes - Cardiovascular Exam Cardiovascular Exam: RRR, +S1, +S2 - GI/Abdominal Exam GI & Abdominal Exam: Soft, Normal Bowel Sounds. absent: Distended, Firm, Guarding, Rigid, Tenderness, Organomegaly - Extremities Exam Additional comments: 1+ B/L LE edema - Neurological Exam Neurological Exam: Altered, Awake - Psychiatric Exam Psychiatric exam: Flat Affect - Skin Skin Exam: Dry, Warm Assessment and Plan - Assessment and Plan (Free Text) Assessment: Patient is a 53yo male with PMHx significant for HIV not on HAART, COPD, systolic CHF with biventricular failure, CAD s/p PCI, DM, HTN, hyperlipidemia who presented to the hospital 5 days ago with shortness of breath -Acute blood loss anemia 2/2 severe PUD -Biventricular heart failure -COPD with acute exacerbation -Cirrhosis c/b hepatic encephalopathy -CAD -HIV Plan: -Again with melanotic stool overnight and hemoglobin drop to 5 observed on this morning's labs -Was not transfused yesterday -Two units to be given this morning -Bleeding scan recommended -Suspect upper GI source from one of the many peptic ulcers noted on EGD however no active bleeding noted on exam previously -Pending results of above, EGD today -Continue PPI gtt -NPO -Ceftriaxone discontinued by ID, on Cefepime - recommended as prophylaxis for 5 days -Lactulose discontinued - avoid hypovolemic state -Autoimmune liver work up unremarkable
[2018-09-02] MEDS ORDERED: Morphine 2 mg/ml ISec IVP STA (09:12)
--- NOTE | 2018-09-02 09:24 | CP.PCM.PN ---
<Elie Herr - Last Filed: 09/02/18 12:36> Subjective - Date & Time of Evaluation Date of Evaluation: 09/02/18 Time of Evaluation: 08:00 - Subjective Subjective: Elie Herr PGY-1 Progress Note for Hospitalist Service Patient seen and evaluated at bedside. Patient under ICU care. Patient s/p 1 more unit PRBC transfused after Hgb 6.4 s/p report of large tarry black stool. Patient denies nausea, vomiting, chest pain, palpitations, leg pain, abdominal pain, cough, BRBPR, hemoptysis, and hematochezia. Lugo and nasal cannula in place. Patient currently not agitated. Objective - Vital Signs/Intake and Output Vital Signs (last 24 hours): Temp Pulse Resp BP Pulse Ox 98.4 F 87 20 163/81 H 100 09/02/18 08:00 09/02/18 08:13 09/02/18 08:13 09/02/18 08:17 09/02/18 08:13 Intake and Output: 09/02/18 09/02/18 06:59 18:59 Intake Total 1140 Output Total 3400 Balance -2260 - Medications Medications: Current Medications Albumin Human (Albumin Human 25% (12.5 Gm/50 Ml)) 12.5 gm IV Q4H [facility] Last Admin: 09/02/18 07:59 Dose: 12.5 gm Albuterol/Ipratropium (Duoneb 3 Mg/0.5 Mg (3 Ml) Ud) 3 ml IH [id number] [facility] Last Admin: 09/02/18 07:17 Dose: 3 ml Albuterol/Ipratropium (Duoneb 3 Mg/0.5 Mg (3 Ml) Ud) 3 ml IH Q2H PRN PRN Reason: Shortness of Breath Last Admin: 08/25/18 23:35 Dose: 3 ml Atorvastatin Calcium (Lipitor) 80 mg PO DIN [facility] Last Admin: 09/01/18 16:54 Dose: 80 mg Carvedilol (Coreg) 12.5 mg PO BID [facility] Last Admin: 08/30/18 11:14 Dose: 12.5 mg Docusate Sodium (Colace) 100 mg PO BID [facility] Last Admin: 09/01/18 17:04 Dose: Not Given Doxycycline Hyclate (Doryx) 100 mg PO Q12 [facility]; Protocol Stop: 09/06/18 10:01 Last Admin: 09/01/18 21:17 Dose: 100 mg Furosemide (Lasix) 40 mg IVP DAILY [facility] Last Admin: 09/01/18 09:24 Dose: 40 mg Glipizide (Glucotrol) 5 mg PO ACB [facility] Last Admin: 08/31/18 07:45 Dose: Not Given Pantoprazole Sodium (Protonix 40mg Ivpb) 40 mg in 100 mls @ 20 mls/hr IVPB .Q5H [facility] Last Admin: 09/02/18 04:34 Dose: 20 mls/hr Cefepime HCl (Maxipime 1gm) 1 gm in 100 mls @ 100 mls/hr IVPB Q8 [facility]; Protocol Stop: 09/10/18 14:01 Last Admin: 09/02/18 04:32 Dose: 100 mls/hr Potassium Chloride (Potassium Chloride 10 Meq/100 Ml) 10 meq in 100 mls @ 50 mls/hr IVPB Q2H [facility] Stop: 09/02/18 13:59 Potassium Phosphate 15 mmole/ (Sodium Chloride) 255 mls @ 42.5 mls/hr IVPB ONCE ONE Stop: 09/02/18 14:14 Insulin Human Lispro (Humalog High) 0 units SC Q4 [facility]; Protocol Last Admin: 09/02/18 08:00 Dose: 2 units Lactulose (Enulose) 20 gm PO TID [facility] Last Admin: 09/01/18 17:03 Dose: 20 gm Losartan Potassium (Cozaar) 25 mg PO DAILY [facility] Last Admin: 08/30/18 11:14 Dose: 25 mg Rifaximin (Xifaxan) 550 mg PO BID [facility]; Protocol Last Admin: 09/01/18 17:03 Dose: 550 mg - Labs Labs: 09/02/18 05:00 09/02/18 05:00 PT 15.1 SECONDS (9.4-12.5) H 09/02/18 05:00 INR 1.31 09/02/18 05:00 APTT 28.4 Seconds (25.1-36.5) 08/31/18 17:50 - Additional Findings Additional findings: - Constitutional Appears: Fair, Non-toxic, No Acute Distress - Head Exam Head Exam: ATRAUMATIC, NORMAL INSPECTION, NORMOCEPHALIC - Eye Exam Eye Exam: EOMI Pupil Exam: PERRL - Respiratory Exam Respiratory Exam: Rhonchi bilaterally, NORMAL BREATHING PATTERN, on BiPAP at this time - Cardiovascular Exam Cardiovascular Exam: REGULAR RHYTHM, +S1+S2 - GI/Abdominal Exam GI & Abdominal Exam: Soft, Normal Bowel Sounds, morbidly obese, nontender nondistended - Extremities Exam Extremities Exam: Full ROM. Chronic vascular epidermal changes to both LEs below knee - Neurological Exam Neurological Exam: Alert, Awake, CN II-XII Intact, Oriented x3 Assessment and Plan - Assessment and Plan (Free Text) Assessment: 53 year old male with past medical history of COPD, diabetes mellitus type II, HTN, HLD, systolic CHF with EF of 39%, CAD with stent, lumbar radiculopathy, gout, and questionable HIV presents with shortness of breath on admission after falling at home. CXR showed cardiomegaly with resolved pulmonary congestion. Echocardiogram from 05/07 showed mild concentric LVH, systolic function moderately impaired, septal hypokinesis, mild MR, moderate TR, mild pulmonary HTN, and aortic root mildly enlarged. Patient with persistent anemia and episode of melena overnight. Plan: Severe anemia likely 2/2 UGI bleed vs varices vs ulcer - Hgb 5.6 this AM, s/p 7th unit of PRBC transfused. CBC q6. 2 additional units ordered to be transfused. - melena reported - PT/INR 15.1/1.31 - f/u Haptoglobin, peripheral smear, direct jade - Relative thrombocytopenia to 109 compared to baseline, improving and will continue to monitor - Abdominal U/S showed patent portal vein, trace ascites. Limited study. F/u bleeding scan - ICU consult placed - Dr. Eduardo - demetria appreciated - GI consult - Dr. Larsen - demetria appreciated . Possibility of repeat EGD - EGD showed esophageal, duodenal and gastric ulcers, with coffee-ground emesis vs blood found in antrum. Moderate portal HTN gastropathy. - Gen Surg consulted - Dr. Vizcarra- for ? UGI bleed- - pain control, Diet per GI, monitor H/H. Hypotension- resolved - 117-151/66-82 today. Periods of hypotension earlier in week, lowest at 83/50. - Albumin q4 - continue to monitor Shortness of Breath likely 2/2 to CHF exacerbation -CXR consistent with cardiomegaly, patient has noncompliance with BiPAP -BNP [id number] -Echocardiogram shows mild systolic congestive heart failure with EF of 39% from 04/2018 -For suspected CHF, patient should continue with coreg 12.5 mg BID per cardio. Clinically, patient does not have significant lower extremity edema. Patient was ordered Bipap for CHF as well. Coreg and Cozaar currently on hold. -Cardio consult- Dr. Salgado - Lasix changed to 40 mg IVP daily, FOBT positive, Lactulose currently on hold - f/u sputum culture - Cefepime and Doxycycline day 2 for 4-7 days per ID Leukocytosis likely 2/2 acute infection- improving -WBC: 11.5 - repeat CXR shows bilateral vascular congestion - Repeat Procal 0.24 - Doxy and Cefepime - f/u repeat blood cultures, f/u sputum cx - continue to monitor Severe Agitation 2/2 Hepatic encephalopathy vs schizophrenia vs. alcohol withdrawal -Abdominal ultrasound suggests hepatocellular disease or cirrhosis. Trace ascites. - On Rifaximin 550 mg BID, Lactulose 20 gm TID - Ammonia 49 initially, 66 on 08/31 -Psychiatry consult for other possible causes of agitation such as schizophrenia placed- no psych indication for continued follow up, and delirium may take few weeks to resolve CAD with stent -EKG: Atrial fibrillation, right bundle branch block, HR of 88 -Troponinx3: 0.06, 0.06, 0.05. Unlikely NC. Elevation likely due to CORAZON -Cardiac catheterization in 12/2017 showed LAD lesion 80% -Continue with aspirin, antiHTN meds held -TSH: 2.41, LDL: 75 -ICU monitoring -History of use of life vest CORAZON Cr at baseline -BUN/Cr ratio more than 20:1 so likely prerenal cause, dehydration from repeated administration of lasix for suspected CHF Diabetes mellitus type II -Accuchecks -HgbA1c: 6.9 -Hypoglycemia protocol -CLD -Lispro high, Glipizide held Obstructive Sleep Apnea -Continue with CPAP/BiPap at night Hypertension - coreg, cozaar held in light of recent hypotension. Will resume if consistently hypertensive Constipation -Continue with colace Hyperlipidemia -Lipid panel unremarkable -Continue with lipitor History of HIV -HIV antibody reactive with 3.33 on PCR - CD4 count 361 - MRSA nose negative - f/u sputum culture GI prophylaxis: Protonix drip in light of GI bleed, for 72 hours per GI DVT prophylaxis: heparin 5000 U Q8 held in light of anemia Dispo: clear liquid diet. Awaiting PT recs. Patient would like to return home after hospitalization. Patient seen, case reviewed and plan approved by Dr. Kwan. Elie Herr, PGY-1 <Vik Kwan - Last Filed: 09/02/18 17:08> Objective - Vital Signs/Intake and Output Vital Signs (last 24 hours): Temp Pulse Resp BP Pulse Ox 97.7 F 95 H 22 116/59 L 100 09/02/18 16:00 09/02/18 16:00 09/02/18 16:00 09/02/18 16:00 09/02/18 16:00 Intake and Output: 09/02/18 09/02/18 06:59 18:59 Intake Total 1140 2405 Output Total 3400 8500 Balance -0576 -5243 - Medications Medications: Current Medications Albumin Human (Albumin Human 25% (12.5 Gm/50 Ml)) 12.5 gm IV Q4H [facility] Last Admin: 09/02/18 15:49 Dose: 12.5 gm Albuterol/Ipratropium (Duoneb 3 Mg/0.5 Mg (3 Ml) Ud) 3 ml IH [id number] [facility] Last Admin: 09/02/18 13:08 Dose: Not Given Albuterol/Ipratropium (Duoneb 3 Mg/0.5 Mg (3 Ml) Ud) 3 ml IH Q2H PRN PRN Reason: Shortness of Breath Last Admin: 08/25/18 23:35 Dose: 3 ml Atorvastatin Calcium (Lipitor) 80 mg PO DIN [facility] Last Admin: 09/02/18 16:29 Dose: Not Given Carvedilol (Coreg) 12.5 mg PO BID [facility] Last Admin: 08/30/18 11:14 Dose: 12.5 mg Docusate Sodium (Colace) 100 mg PO BID [facility] Last Admin: 09/02/18 09:38 Dose: Not Given Doxycycline Hyclate (Doryx) 100 mg PO Q12 [facility]; Protocol Stop: 09/06/18 10:01 Last Admin: 09/02/18 09:38 Dose: Not Given Furosemide (Lasix) 40 mg IVP DAILY [facility] Last Admin: 09/02/18 09:25 Dose: 40 mg Glipizide (Glucotrol) 5 mg PO ACB [facility] Last Admin: 08/31/18 07:45 Dose: Not Given Pantoprazole Sodium (Protonix 40mg Ivpb) 40 mg in 100 mls @ 20 mls/hr IVPB .Q5H [facility] Last Admin: 09/02/18 15:01 Dose: 20 mls/hr Cefepime HCl (Maxipime 1gm) 1 gm in 100 mls @ 100 mls/hr IVPB Q8 [facility]; Protocol Stop: 09/10/18 14:01 Last Admin: 09/02/18 14:04 Dose: 100 mls/hr Insulin Human Lispro (Humalog High) 0 units SC Q4 [facility]; Protocol Last Admin: 09/02/18 16:29 Dose: 2 units Lactulose (Enulose) 20 gm PO TID [facility] Last Admin: 09/01/18 17:03 Dose: 20 gm Losartan Potassium (Cozaar) 25 mg PO DAILY [facility] Last Admin: 08/30/18 11:14 Dose: 25 mg Rifaximin (Xifaxan) 550 mg PO BID [facility]; Protocol Last Admin: 09/02/18 09:40 Dose: Not Given - Labs Labs: 09/02/18 16:15 09/02/18 05:00 PT 15.1 SECONDS (9.4-12.5) H 09/02/18 05:00 INR 1.31 09/02/18 05:00 APTT 28.4 Seconds (25.1-36.5) 08/31/18 17:50 Attending/Attestation - Attestation I have personally seen and examined this patient.: Yes I have fully participated in the care of the patient.: Yes I have reviewed all pertinent clinical information, including history, physical exam and plan: Yes
--- NOTE | 2018-09-02 09:29 | CP.CCUPN ---
<Lukasz Hayden - Last Filed: 09/02/18 09:24> CCU Subjective - Physician Review Subjective (Free Text): Lukasz Hayden, PGY1 ICU Progress Note for Dr. Mcintyre Patient was seen and examined at bedside this morning. Patient has nasal cannula and diego catheter in place. He is currently AAOx3 but does have episodes of confusion. Patient denied cp, sob, abdominal pain, nausea, vomiting, diarrhea. Patient had x1 episode of melena overnight, it was dark and tarry stool. Patient's Hgb was 6.4 overnight and repeat Hgb was 5.6 this morning at 5am. Discussed with GI, x2u PRBCs ordered stat. Patient went for bleeding scan after interview. A full 12 point ROS was conducted and unremarkable except as stated above. CCU Objective - Vital Signs / Intake & Output Vital Signs (Last 4 hours): Vital Signs Temp Pulse Resp BP Pulse Ox 09/02/18 08:17 163/81 H 09/02/18 08:13 87 20 100 09/02/18 08:00 98.4 F 90 110/64 100 09/02/18 07:51 82 15 155/71 H 100 09/02/18 07:00 79 14 165/76 H 99 09/02/18 06:00 88 147/71 09/02/18 05:59 89 24 Intake and Output (Last 8hrs): Intake & Output 09/01/18 09/02/18 09/02/18 22:59 06:59 14:59 Intake Total 2410 1140 Output Total 4400 3400 Balance -1989 Intake: IV 340 440 Left Hand 240 Right Antecubital 200 antibiotics 100 protonix 240 Oral 1920 Blood Product 650 Red Blood Cells Cpd As1 325 Lr Unit [id number] Albumin 150 Other 50 Red Blood Cells Cpd As1 50 Lr Unit [id number] Output: Urine 4400 3400 Urethral (Diego) 4400 3400 Other: # Bowel Movements 0 1 - Physical Exam Head: Positive for: Atraumatic, Normocephalic Pupils: Positive for: PERRL Extroacular Muscles: Positive for: EOMI Conjunctiva: Positive for: Normal Mouth: Positive for: Moist Mucous Membranes, Other (Nasal cannula in place) Neck: Positive for: Normal Range of Motion Respiratory/Chest: Positive for: Clear to Auscultation. Negative for: Good Air Exchange, Respiratory Distress, Accessory Muscle Use, Wheezes, Rales, Retracting, Rhonchi, Tachypneic Cardiovascular: Positive for: Regular Rate and Rhythm, Normal S1, S2. Negative for: Murmurs Abdomen: Positive for: Normal Bowel Sounds, Mass/Organomegaly (Hepatomegaly ). Negative for: Tenderness, Distention, Peritoneal Signs, Rebound, Guarding Genitourinary Male: Positive for: Other (Diego in place. ) Upper Extremity: Positive for: Normal Inspection. Negative for: Cyanosis, Edema Lower Extremity: Positive for: Other (B/L lower extremity stasis dermatitis/scaly dry skin noted). Negative for: Edema Neurological: Positive for: Speech Normal, Motor Func Grossly Intact Skin: Positive for: Warm, Dry, Normal Color. Negative for: Rashes Psychiatric: Positive for: Alert, Oriented x 3 - Medications Active Medications: Active Medications Generic Name Dose Route Start Last Admin Trade Name Freq PRN Reason Stop Dose Admin Albumin Human 12.5 gm 08/31/18 08:00 09/02/18 07:59 Albumin Human 25% (12.5 Gm/50 Ml) IV 12.5 gm Q4H TRAVIS Administration Albuterol/Ipratropium 3 ml 08/26/18 02:00 09/02/18 07:17 Duoneb 3 Mg/0.5 Mg (3 Ml) Ud IH 3 ml [id number] TRAVIS Administration Albuterol/Ipratropium 3 ml 08/25/18 20:01 08/25/18 23:35 Duoneb 3 Mg/0.5 Mg (3 Ml) Ud IH 3 ml Q2H PRN Administration Shortness of Breath Atorvastatin Calcium 80 mg 08/25/18 20:15 09/01/18 16:54 Lipitor PO 80 mg DIN TRAVIS Administration Carvedilol 12.5 mg 08/25/18 21:15 08/30/18 11:14 Coreg PO 12.5 mg BID TRAVIS Administration Docusate Sodium 100 mg 08/26/18 10:00 09/01/18 17:04 Colace PO Not Given BID TRAVIS Doxycycline Hyclate 100 mg 09/01/18 10:00 09/01/18 21:17 Doryx PO 09/06/18 10:01 100 mg Q12 TRAVIS Administration Protocol Furosemide 40 mg 08/30/18 10:00 09/01/18 09:24 Lasix IVP 40 mg DAILY TRAVIS Administration Glipizide 5 mg 08/29/18 10:45 08/31/18 07:45 Glucotrol PO Not Given ACB TRAVIS Pantoprazole Sodium 40 mg in 100 mls @ 20 mls/hr 08/30/18 15:00 09/02/18 04:34 Protonix 40mg Ivpb IVPB 20 mls/hr .Q5H TRAVIS Administration Cefepime HCl 1 gm in 100 mls @ 100 mls/hr 09/01/18 14:00 09/02/18 04:32 Maxipime 1gm IVPB 09/10/18 14:01 100 mls/hr Q8 TRAVIS Administration Protocol Potassium Chloride 10 meq in 100 mls @ 50 mls/hr 09/02/18 08:00 Potassium Chloride 10 Meq/100 Ml IVPB 09/02/18 13:59 Q2H TRAVIS Potassium Phosphate 15 mmole/ 255 mls @ 42.5 mls/hr 09/02/18 08:15 Sodium Chloride IVPB 09/02/18 14:14 ONCE ONE Insulin Human Lispro 0 units 08/31/18 08:00 09/02/18 08:00 Humalog High SC 2 units Q4 TRAVIS Administration Protocol Lactulose 20 gm 08/31/18 14:00 09/01/18 17:03 Enulose PO 20 gm TID TRAVIS Administration Losartan Potassium 25 mg 08/27/18 12:30 08/30/18 11:14 Cozaar PO 25 mg DAILY TRAVIS Administration Rifaximin 550 mg 08/31/18 10:00 09/01/18 17:03 Xifaxan PO 550 mg BID TRAVIS Administration Protocol - Patient Studies Lab Studies: Microbiology Studies 08/31/18 17:30 Blood Culture - Preliminary Blood NO GROWTH AFTER 24 HOURS 08/31/18 17:00 Blood Culture - Preliminary Blood NO GROWTH AFTER 24 HOURS 08/30/18 21:47 MRSA Culture (Admit) - Final Nose MRSA NOT DETECTED Lab Studies 09/02/18 09/02/18 09/02/18 Range/Units 07:49 07:45 05:30 WBC (4.5-11.0) 10^3/uL RBC (3.5-6.1) 10^6/uL Hgb (14.0-18.0) g/dL Hct (42.0-52.0) % MCV (80.0-105.0) fl MCH (25.0-35.0) pg MCHC (31.0-37.0) g/dl RDW (11.5-14.5) % Plt Count (120.0-450.0) 10^3/uL MPV (7.0-11.0) fl Retic Count (0.5-1.5) % PT (9.4-12.5) SECONDS INR Sodium (132-148) mmol/L Potassium (3.6-5.0) mmol/L Chloride (98-107) mmol/L Carbon Dioxide (21-33) mmol/L Anion Gap (10-20) BUN (7-21) mg/dL Creatinine (0.8-1.5) mg/dl Est GFR ( Amer) Est GFR (Non-Af Amer) POC Glucose (mg/dL) 182 H (65-110) mg/dL Random Glucose (70-110) mg/dL Calcium (8.4-10.5) mg/dL Phosphorus (2.5-4.5) mg/dL Magnesium (1.7-2.2) mg/dL Total Bilirubin (0.2-1.3) mg/dL Direct Bilirubin 0.6 H (0.0-0.4) mg/dL AST (17-59) U/L ALT (7-56) U/L Alkaline Phosphatase (38-126) U/L Lactate Dehydrogenase 687 (333-699) U/L Total Protein (5.8-8.3) g/dL Albumin (3.0-4.8) g/dL Globulin gm/dL Albumin/Globulin Ratio (1.1-1.8) Procalcitonin (0.19-0.49) NG/ML MARITZA Screen (Negative) Anti-Mitochondrial Ab (Negative) Smooth Muscle Ab Titer Anti-Smooth Muscle Ab (Negative) Blood Type A POSITIVE Antibody Screen Negative Crossmatch See Detail BBK History Checked Patient has bt 09/02/18 09/02/18 09/02/18 Range/Units 05:30 05:00 05:00 WBC 11.5 H (4.5-11.0) 10^3/uL RBC 2.18 L (3.5-6.1) 10^6/uL Hgb 5.6 L* (14.0-18.0) g/dL Hct 18.0 L* (42.0-52.0) % MCV 82.6 (80.0-105.0) fl MCH 25.7 (25.0-35.0) pg MCHC 31.1 (31.0-37.0) g/dl RDW 19.2 H (11.5-14.5) % Plt Count 109 L (120.0-450.0) 10^3/uL MPV 10.1 (7.0-11.0) fl Retic Count 2.42 H (0.5-1.5) % PT (9.4-12.5) SECONDS INR Sodium 145 (132-148) mmol/L Potassium 3.5 L (3.6-5.0) mmol/L Chloride 104 (98-107) mmol/L Carbon Dioxide 37 H (21-33) mmol/L Anion Gap 8 L (10-20) BUN 57 H (7-21) mg/dL Creatinine 1.0 (0.8-1.5) mg/dl Est GFR ( Amer) > 60 Est GFR (Non-Af Amer) > 60 POC Glucose (mg/dL) (65-110) mg/dL Random Glucose 165 H (70-110) mg/dL Calcium 8.2 L (8.4-10.5) mg/dL Phosphorus 2.1 L (2.5-4.5) mg/dL Magnesium 1.8 (1.7-2.2) mg/dL Total Bilirubin 1.1 (0.2-1.3) mg/dL Direct Bilirubin (0.0-0.4) mg/dL AST 29 (17-59) U/L ALT 33 (7-56) U/L Alkaline Phosphatase 105 (38-126) U/L Lactate Dehydrogenase (333-699) U/L Total Protein 5.9 (5.8-8.3) g/dL Albumin 2.7 L (3.0-4.8) g/dL Globulin 3.2 gm/dL Albumin/Globulin Ratio 0.8 L (1.1-1.8) Procalcitonin (0.19-0.49) NG/ML MARITZA Screen (Negative) Anti-Mitochondrial Ab (Negative) Smooth Muscle Ab Titer Anti-Smooth Muscle Ab (Negative) Blood Type Antibody Screen Crossmatch BBK History Checked 09/02/18 09/02/18 09/02/18 Range/Units 05:00 04:01 00:11 WBC (4.5-11.0) 10^3/uL RBC (3.5-6.1) 10^6/uL Hgb (14.0-18.0) g/dL Hct (42.0-52.0) % MCV (80.0-105.0) fl MCH (25.0-35.0) pg MCHC (31.0-37.0) g/dl RDW (11.5-14.5) % Plt Count (120.0-450.0) 10^3/uL MPV (7.0-11.0) fl Retic Count (0.5-1.5) % PT 15.1 H (9.4-12.5) SECONDS INR 1.31 Sodium (132-148) mmol/L Potassium (3.6-5.0) mmol/L Chloride (98-107) mmol/L Carbon Dioxide (21-33) mmol/L Anion Gap (10-20) BUN (7-21) mg/dL Creatinine (0.8-1.5) mg/dl Est GFR ( Amer) Est GFR (Non-Af Amer) POC Glucose (mg/dL) 192 H 231 H (65-110) mg/dL Random Glucose (70-110) mg/dL Calcium (8.4-10.5) mg/dL Phosphorus (2.5-4.5) mg/dL Magnesium (1.7-2.2) mg/dL Total Bilirubin (0.2-1.3) mg/dL Direct Bilirubin (0.0-0.4) mg/dL AST (17-59) U/L ALT (7-56) U/L Alkaline Phosphatase (38-126) U/L Lactate Dehydrogenase (333-699) U/L Total Protein (5.8-8.3) g/dL Albumin (3.0-4.8) g/dL Globulin gm/dL Albumin/Globulin Ratio (1.1-1.8) Procalcitonin (0.19-0.49) NG/ML MARITZA Screen (Negative) Anti-Mitochondrial Ab (Negative) Smooth Muscle Ab Titer Anti-Smooth Muscle Ab (Negative) Blood Type Antibody Screen Crossmatch BBK History Checked 09/01/18 09/01/18 09/01/18 Range/Units 22:56 20:05 16:22 WBC 10.3 (4.5-11.0) 10^3/uL RBC 2.50 L (3.5-6.1) 10^6/uL Hgb 6.4 L* (14.0-18.0) g/dL Hct 20.5 L* (42.0-52.0) % MCV 82.0 (80.0-105.0) fl MCH 25.6 (25.0-35.0) pg MCHC 31.2 (31.0-37.0) g/dl RDW 19.6 H (11.5-14.5) % Plt Count 103 L (120.0-450.0) 10^3/uL MPV 9.7 (7.0-11.0) fl Retic Count (0.5-1.5) % PT (9.4-12.5) SECONDS INR Sodium (132-148) mmol/L Potassium (3.6-5.0) mmol/L Chloride (98-107) mmol/L Carbon Dioxide (21-33) mmol/L Anion Gap (10-20) BUN (7-21) mg/dL Creatinine (0.8-1.5) mg/dl Est GFR ( Amer) Est GFR (Non-Af Amer) POC Glucose (mg/dL) 265 H 279 H (65-110) mg/dL Random Glucose (70-110) mg/dL Calcium (8.4-10.5) mg/dL Phosphorus (2.5-4.5) mg/dL Magnesium (1.7-2.2) mg/dL Total Bilirubin (0.2-1.3) mg/dL Direct Bilirubin (0.0-0.4) mg/dL AST (17-59) U/L ALT (7-56) U/L Alkaline Phosphatase (38-126) U/L Lactate Dehydrogenase (333-699) U/L Total Protein (5.8-8.3) g/dL Albumin (3.0-4.8) g/dL Globulin gm/dL Albumin/Globulin Ratio (1.1-1.8) Procalcitonin (0.19-0.49) NG/ML MARITZA Screen (Negative) Anti-Mitochondrial Ab (Negative) Smooth Muscle Ab Titer Anti-Smooth Muscle Ab (Negative) Blood Type Antibody Screen Crossmatch BBK History Checked 09/01/18 09/01/18 09/01/18 Range/Units 12:00 11:41 07:52 WBC 10.9 (4.5-11.0) 10^3/uL RBC 2.86 L (3.5-6.1) 10^6/uL Hgb 7.2 L (14.0-18.0) g/dL Hct 23.3 L (42.0-52.0) % MCV 81.5 (80.0-105.0) fl MCH 25.2 (25.0-35.0) pg MCHC 30.9 L (31.0-37.0) g/dl RDW 18.7 H (11.5-14.5) % Plt Count 124 (120.0-450.0) 10^3/uL MPV 10.4 (7.0-11.0) fl Retic Count (0.5-1.5) % PT (9.4-12.5) SECONDS INR Sodium (132-148) mmol/L Potassium (3.6-5.0) mmol/L Chloride (98-107) mmol/L Carbon Dioxide (21-33) mmol/L Anion Gap (10-20) BUN (7-21) mg/dL Creatinine (0.8-1.5) mg/dl Est GFR ( Amer) Est GFR (Non-Af Amer) POC Glucose (mg/dL) 174 H 157 H (65-110) mg/dL Random Glucose (70-110) mg/dL Calcium (8.4-10.5) mg/dL Phosphorus (2.5-4.5) mg/dL Magnesium (1.7-2.2) mg/dL Total Bilirubin (0.2-1.3) mg/dL Direct Bilirubin (0.0-0.4) mg/dL AST (17-59) U/L ALT (7-56) U/L Alkaline Phosphatase (38-126) U/L Lactate Dehydrogenase (333-699) U/L Total Protein (5.8-8.3) g/dL Albumin (3.0-4.8) g/dL Globulin gm/dL Albumin/Globulin Ratio (1.1-1.8) Procalcitonin (0.19-0.49) NG/ML MARITZA Screen (Negative) Anti-Mitochondrial Ab (Negative) Smooth Muscle Ab Titer Anti-Smooth Muscle Ab (Negative) Blood Type Antibody Screen Crossmatch BBK History Checked 09/01/18 09/01/18 09/01/18 Range/Units 07:40 04:47 00:01 WBC (4.5-11.0) 10^3/uL RBC (3.5-6.1) 10^6/uL Hgb (14.0-18.0) g/dL Hct (42.0-52.0) % MCV (80.0-105.0) fl MCH (25.0-35.0) pg MCHC (31.0-37.0) g/dl RDW (11.5-14.5) % Plt Count (120.0-450.0) 10^3/uL MPV (7.0-11.0) fl Retic Count (0.5-1.5) % PT (9.4-12.5) SECONDS INR Sodium (132-148) mmol/L Potassium (3.6-5.0) mmol/L Chloride (98-107) mmol/L Carbon Dioxide (21-33) mmol/L Anion Gap (10-20) BUN (7-21) mg/dL Creatinine (0.8-1.5) mg/dl Est GFR ( Amer) Est GFR (Non-Af Amer) POC Glucose (mg/dL) 168 H 161 H (65-110) mg/dL Random Glucose (70-110) mg/dL Calcium (8.4-10.5) mg/dL Phosphorus (2.5-4.5) mg/dL Magnesium (1.7-2.2) mg/dL Total Bilirubin (0.2-1.3) mg/dL Direct Bilirubin (0.0-0.4) mg/dL AST (17-59) U/L ALT (7-56) U/L Alkaline Phosphatase (38-126) U/L Lactate Dehydrogenase (333-699) U/L Total Protein (5.8-8.3) g/dL Albumin (3.0-4.8) g/dL Globulin gm/dL Albumin/Globulin Ratio (1.1-1.8) Procalcitonin 0.24 (0.19-0.49) NG/ML MARITZA Screen (Negative) Anti-Mitochondrial Ab (Negative) Smooth Muscle Ab Titer Anti-Smooth Muscle Ab (Negative) Blood Type Antibody Screen Crossmatch BBK History Checked 08/31/18 08/31/18 08/31/18 Range/Units 21:35 11:55 10:00 WBC (4.5-11.0) 10^3/uL RBC (3.5-6.1) 10^6/uL Hgb (14.0-18.0) g/dL Hct (42.0-52.0) % MCV (80.0-105.0) fl MCH (25.0-35.0) pg MCHC (31.0-37.0) g/dl RDW (11.5-14.5) % Plt Count (120.0-450.0) 10^3/uL MPV (7.0-11.0) fl Retic Count (0.5-1.5) % PT (9.4-12.5) SECONDS INR Sodium (132-148) mmol/L Potassium (3.6-5.0) mmol/L Chloride (98-107) mmol/L Carbon Dioxide (21-33) mmol/L Anion Gap (10-20) BUN (7-21) mg/dL Creatinine (0.8-1.5) mg/dl Est GFR ( Amer) Est GFR (Non-Af Amer) POC Glucose (mg/dL) 171 H 247 H (65-110) mg/dL Random Glucose (70-110) mg/dL Calcium (8.4-10.5) mg/dL Phosphorus (2.5-4.5) mg/dL Magnesium (1.7-2.2) mg/dL Total Bilirubin (0.2-1.3) mg/dL Direct Bilirubin (0.0-0.4) mg/dL AST (17-59) U/L ALT (7-56) U/L Alkaline Phosphatase (38-126) U/L Lactate Dehydrogenase (333-699) U/L Total Protein (5.8-8.3) g/dL Albumin (3.0-4.8) g/dL Globulin gm/dL Albumin/Globulin Ratio (1.1-1.8) Procalcitonin (0.19-0.49) NG/ML MARITZA Screen Negative (Negative) Anti-Mitochondrial Ab Negative (Negative) Smooth Muscle Ab Titer TEST NOT PERFORMED Anti-Smooth Muscle Ab Negative (Negative) Blood Type Antibody Screen Crossmatch BBK History Checked 08/31/18 08/30/18 08/30/18 Range/Units 07:55 22:27 16:23 WBC (4.5-11.0) 10^3/uL RBC (3.5-6.1) 10^6/uL Hgb (14.0-18.0) g/dL Hct (42.0-52.0) % MCV (80.0-105.0) fl MCH (25.0-35.0) pg MCHC (31.0-37.0) g/dl RDW (11.5-14.5) % Plt Count (120.0-450.0) 10^3/uL MPV (7.0-11.0) fl Retic Count (0.5-1.5) % PT (9.4-12.5) SECONDS INR Sodium (132-148) mmol/L Potassium (3.6-5.0) mmol/L Chloride (98-107) mmol/L Carbon Dioxide (21-33) mmol/L Anion Gap (10-20) BUN (7-21) mg/dL Creatinine (0.8-1.5) mg/dl Est GFR ( Amer) Est GFR (Non-Af Amer) POC Glucose (mg/dL) 386 H 434 H* 391 H (65-110) mg/dL Random Glucose (70-110) mg/dL Calcium (8.4-10.5) mg/dL Phosphorus (2.5-4.5) mg/dL Magnesium (1.7-2.2) mg/dL Total Bilirubin (0.2-1.3) mg/dL Direct Bilirubin (0.0-0.4) mg/dL AST (17-59) U/L ALT (7-56) U/L Alkaline Phosphatase (38-126) U/L Lactate Dehydrogenase (333-699) U/L Total Protein (5.8-8.3) g/dL Albumin (3.0-4.8) g/dL Globulin gm/dL Albumin/Globulin Ratio (1.1-1.8) Procalcitonin (0.19-0.49) NG/ML MARITZA Screen (Negative) Anti-Mitochondrial Ab (Negative) Smooth Muscle Ab Titer Anti-Smooth Muscle Ab (Negative) Blood Type Antibody Screen Crossmatch BBK History Checked 08/30/18 08/30/18 08/30/18 Range/Units 11:56 10:35 07:44 WBC (4.5-11.0) 10^3/uL RBC (3.5-6.1) 10^6/uL Hgb (14.0-18.0) g/dL Hct (42.0-52.0) % MCV (80.0-105.0) fl MCH (25.0-35.0) pg MCHC (31.0-37.0) g/dl RDW (11.5-14.5) % Plt Count (120.0-450.0) 10^3/uL MPV (7.0-11.0) fl Retic Count (0.5-1.5) % PT (9.4-12.5) SECONDS INR Sodium (132-148) mmol/L Potassium (3.6-5.0) mmol/L Chloride (98-107) mmol/L Carbon Dioxide (21-33) mmol/L Anion Gap (10-20) BUN (7-21) mg/dL Creatinine (0.8-1.5) mg/dl Est GFR ( Amer) Est GFR (Non-Af Amer) POC Glucose (mg/dL) 338 H 214 H (65-110) mg/dL Random Glucose (70-110) mg/dL Calcium (8.4-10.5) mg/dL Phosphorus (2.5-4.5) mg/dL Magnesium (1.7-2.2) mg/dL Total Bilirubin (0.2-1.3) mg/dL Direct Bilirubin (0.0-0.4) mg/dL AST (17-59) U/L ALT (7-56) U/L Alkaline Phosphatase (38-126) U/L Lactate Dehydrogenase (333-699) U/L Total Protein (5.8-8.3) g/dL Albumin (3.0-4.8) g/dL Globulin gm/dL Albumin/Globulin Ratio (1.1-1.8) Procalcitonin (0.19-0.49) NG/ML MARITZA Screen (Negative) Anti-Mitochondrial Ab (Negative) Smooth Muscle Ab Titer Anti-Smooth Muscle Ab (Negative) Blood Type A POSITIVE Antibody Screen Negative Crossmatch See Detail BBK History Checked Patient has bt 08/30/18 08/29/18 Range/Units 02:28 21:27 WBC (4.5-11.0) 10^3/uL RBC (3.5-6.1) 10^6/uL Hgb (14.0-18.0) g/dL Hct (42.0-52.0) % MCV (80.0-105.0) fl MCH (25.0-35.0) pg MCHC (31.0-37.0) g/dl RDW (11.5-14.5) % Plt Count (120.0-450.0) 10^3/uL MPV (7.0-11.0) fl Retic Count (0.5-1.5) % PT (9.4-12.5) SECONDS INR Sodium (132-148) mmol/L Potassium (3.6-5.0) mmol/L Chloride (98-107) mmol/L Carbon Dioxide (21-33) mmol/L Anion Gap (10-20) BUN (7-21) mg/dL Creatinine (0.8-1.5) mg/dl Est GFR ( Amer) Est GFR (Non-Af Amer) POC Glucose (mg/dL) 310 H 389 H (65-110) mg/dL Random Glucose (70-110) mg/dL Calcium (8.4-10.5) mg/dL Phosphorus (2.5-4.5) mg/dL Magnesium (1.7-2.2) mg/dL Total Bilirubin (0.2-1.3) mg/dL Direct Bilirubin (0.0-0.4) mg/dL AST (17-59) U/L ALT (7-56) U/L Alkaline Phosphatase (38-126) U/L Lactate Dehydrogenase (333-699) U/L Total Protein (5.8-8.3) g/dL Albumin (3.0-4.8) g/dL Globulin gm/dL Albumin/Globulin Ratio (1.1-1.8) Procalcitonin (0.19-0.49) NG/ML MARITZA Screen (Negative) Anti-Mitochondrial Ab (Negative) Smooth Muscle Ab Titer Anti-Smooth Muscle Ab (Negative) Blood Type Antibody Screen Crossmatch BBK History Checked Laboratory Results - last 24 hr 08/29/18 08/30/18 08/30/18 21:27 02:28 07:44 WBC RBC Hgb Hct MCV MCH MCHC RDW Plt Count MPV Retic Count PT INR Sodium Potassium Chloride Carbon Dioxide Anion Gap BUN Creatinine Est GFR ( Amer) Est GFR (Non-Af Amer) POC Glucose (mg/dL) 389 H 310 H 214 H Random Glucose Calcium Phosphorus Magnesium Total Bilirubin Direct Bilirubin AST ALT Alkaline Phosphatase Lactate Dehydrogenase Total Protein Albumin Globulin Albumin/Globulin Ratio Procalcitonin MARITZA Screen Anti-Mitochondrial Ab Smooth Muscle Ab Titer Anti-Smooth Muscle Ab Blood Type Antibody Screen Crossmatch BBK History Checked 08/30/18 08/30/18 08/30/18 10:35 11:56 16:23 WBC RBC Hgb Hct MCV MCH MCHC RDW Plt Count MPV Retic Count PT INR Sodium Potassium Chloride Carbon Dioxide Anion Gap BUN Creatinine Est GFR ( Amer) Est GFR (Non-Af Amer) POC Glucose (mg/dL) 338 H 391 H Random Glucose Calcium Phosphorus Magnesium Total Bilirubin Direct Bilirubin AST ALT Alkaline Phosphatase Lactate Dehydrogenase Total Protein Albumin Globulin Albumin/Globulin Ratio Procalcitonin MARITZA Screen Anti-Mitochondrial Ab Smooth Muscle Ab Titer Anti-Smooth Muscle Ab Blood Type A POSITIVE Antibody Screen Negative Crossmatch See Detail BBK History Checked Patient has bt 08/30/18 08/31/18 08/31/18 22:27 07:55 10:00 WBC RBC Hgb Hct MCV MCH MCHC RDW Plt Count MPV Retic Count PT INR Sodium Potassium Chloride Carbon Dioxide Anion Gap BUN Creatinine Est GFR ( Amer) Est GFR (Non-Af Amer) POC Glucose (mg/dL) 434 H* 386 H Random Glucose Calcium Phosphorus Magnesium Total Bilirubin Direct Bilirubin AST ALT Alkaline Phosphatase Lactate Dehydrogenase Total Protein Albumin Globulin Albumin/Globulin Ratio Procalcitonin MARITZA Screen Negative Anti-Mitochondrial Ab Negative Smooth Muscle Ab Titer TEST NOT PERFORMED Anti-Smooth Muscle Ab Negative Blood Type Antibody Screen Crossmatch BBK History Checked 08/31/18 08/31/18 09/01/18 11:55 21:35 00:01 WBC RBC Hgb Hct MCV MCH MCHC RDW Plt Count MPV Retic Count PT INR Sodium Potassium Chloride Carbon Dioxide Anion Gap BUN Creatinine Est GFR ( Amer) Est GFR (Non-Af Amer) POC Glucose (mg/dL) 247 H 171 H 161 H Random Glucose Calcium Phosphorus Magnesium Total Bilirubin Direct Bilirubin AST ALT Alkaline Phosphatase Lactate Dehydrogenase Total Protein Albumin Globulin Albumin/Globulin Ratio Procalcitonin MARITZA Screen Anti-Mitochondrial Ab Smooth Muscle Ab Titer Anti-Smooth Muscle Ab Blood Type Antibody Screen Crossmatch BBK History Checked 09/01/18 09/01/18 09/01/18 04:47 07:40 07:52 WBC RBC Hgb Hct MCV MCH MCHC RDW Plt Count MPV Retic Count PT INR Sodium Potassium Chloride Carbon Dioxide Anion Gap BUN Creatinine Est GFR ( Amer) Est GFR (Non-Af Amer) POC Glucose (mg/dL) 168 H 157 H Random Glucose Calcium Phosphorus Magnesium Total Bilirubin Direct Bilirubin AST ALT Alkaline Phosphatase Lactate Dehydrogenase Total Protein Albumin Globulin Albumin/Globulin Ratio Procalcitonin 0.24 MARITZA Screen Anti-Mitochondrial Ab Smooth Muscle Ab Titer Anti-Smooth Muscle Ab Blood Type Antibody Screen Crossmatch BBK History Checked 09/01/18 09/01/18 09/01/18 11:41 12:00 16:22 WBC 10.9 RBC 2.86 L Hgb 7.2 L Hct 23.3 L MCV 81.5 MCH 25.2 MCHC 30.9 L RDW 18.7 H Plt Count 124 MPV 10.4 Retic Count PT INR Sodium Potassium Chloride Carbon Dioxide Anion Gap BUN Creatinine Est GFR ( Amer) Est GFR (Non-Af Amer) POC Glucose (mg/dL) 174 H 279 H Random Glucose Calcium Phosphorus Magnesium Total Bilirubin Direct Bilirubin AST ALT Alkaline Phosphatase Lactate Dehydrogenase Total Protein Albumin Globulin Albumin/Globulin Ratio Procalcitonin MARITZA Screen Anti-Mitochondrial Ab Smooth Muscle Ab Titer Anti-Smooth Muscle Ab Blood Type Antibody Screen Crossmatch BBK History Checked 09/01/18 09/01/18 09/02/18 20:05 22:56 00:11 WBC 10.3 RBC 2.50 L Hgb 6.4 L* Hct 20.5 L* MCV 82.0 MCH 25.6 MCHC 31.2 RDW 19.6 H Plt Count 103 L MPV 9.7 Retic Count PT INR Sodium Potassium Chloride Carbon Dioxide Anion Gap BUN Creatinine Est GFR ( Amer) Est GFR (Non-Af Amer) POC Glucose (mg/dL) 265 H 231 H Random Glucose Calcium Phosphorus Magnesium Total Bilirubin Direct Bilirubin AST ALT Alkaline Phosphatase Lactate Dehydrogenase Total Protein Albumin Globulin Albumin/Globulin Ratio Procalcitonin MARITZA Screen Anti-Mitochondrial Ab Smooth Muscle Ab Titer Anti-Smooth Muscle Ab Blood Type Antibody Screen Crossmatch BBK History Checked 09/02/18 09/02/18 09/02/18 04:01 05:00 05:00 WBC RBC Hgb Hct MCV MCH MCHC RDW Plt Count MPV Retic Count PT 15.1 H INR 1.31 Sodium 145 Potassium 3.5 L Chloride 104 Carbon Dioxide 37 H Anion Gap 8 L BUN 57 H Creatinine 1.0 Est GFR ( Amer) > 60 Est GFR (Non-Af Amer) > 60 POC Glucose (mg/dL) 192 H Random Glucose 165 H Calcium 8.2 L Phosphorus 2.1 L Magnesium 1.8 Total Bilirubin 1.1 Direct Bilirubin AST 29 ALT 33 Alkaline Phosphatase 105 Lactate Dehydrogenase Total Protein 5.9 Albumin 2.7 L Globulin 3.2 Albumin/Globulin Ratio 0.8 L Procalcitonin MARITZA Screen Anti-Mitochondrial Ab Smooth Muscle Ab Titer Anti-Smooth Muscle Ab Blood Type Antibody Screen Crossmatch BBK History Checked 09/02/18 09/02/18 09/02/18 05:00 05:30 05:30 WBC 11.5 H RBC 2.18 L Hgb 5.6 L* Hct 18.0 L* MCV 82.6 MCH 25.7 MCHC 31.1 RDW 19.2 H Plt Count 109 L MPV 10.1 Retic Count 2.42 H PT INR Sodium Potassium Chloride Carbon Dioxide Anion Gap BUN Creatinine Est GFR ( Amer) Est GFR (Non-Af Amer) POC Glucose (mg/dL) Random Glucose Calcium Phosphorus Magnesium Total Bilirubin Direct Bilirubin 0.6 H AST ALT Alkaline Phosphatase Lactate Dehydrogenase 687 Total Protein Albumin Globulin Albumin/Globulin Ratio Procalcitonin MARITZA Screen Anti-Mitochondrial Ab Smooth Muscle Ab Titer Anti-Smooth Muscle Ab Blood Type Antibody Screen Crossmatch BBK History Checked 09/02/18 09/02/18 07:45 07:49 WBC RBC Hgb Hct MCV MCH MCHC RDW Plt Count MPV Retic Count PT INR Sodium Potassium Chloride Carbon Dioxide Anion Gap BUN Creatinine Est GFR ( Amer) Est GFR (Non-Af Amer) POC Glucose (mg/dL) 182 H Random Glucose Calcium Phosphorus Magnesium Total Bilirubin Direct Bilirubin AST ALT Alkaline Phosphatase Lactate Dehydrogenase Total Protein Albumin Globulin Albumin/Globulin Ratio Procalcitonin MARITZA Screen Anti-Mitochondrial Ab Smooth Muscle Ab Titer Anti-Smooth Muscle Ab Blood Type A POSITIVE Antibody Screen Negative Crossmatch See Detail BBK History Checked Patient has bt Fingerstick Blood Sugar Results: 182 Review of Systems - Review of Systems All systems: reviewed and no additional remarkable complaints except (as per HPI.) Critical Care Progress Note - Extremities/Vascular Does the Patient have a Diego Catheter?: Yes Does the Patient need a Diego Catheter?: Yes Catheter Insertion Criteria: Need for accurate measurement of output in critically ill patient - Prophylaxis DVT Prophylaxis DVT: SCDs - Nutrition Nutrition: Nutrition Category Date Time Status NPO Diet [DIET] Diets 09/02/18 Breakfast Ordered Assessment/Plan - Assessment and Plan (Free Text) Assessment: Patient is a 53 y/o M with PMHx HIV (not on HAART), COPD, CHF-rEF (ECHO on 05/10 showing EF 39% with septal hypokinesis), Biventricular HF, CAD s/p PCI, DM, HTN, HLD who [place] [facility] [place] shortness [place] breath for 5 days in duration. Patient admitted and treated for COPD vs CHF exacerbation with fluid overload. ICU was consulted for evaluation of suspected upper GI bleed with new onset anemia requiring multiple blood transfusions. Patient is s/p endoscopy and was found to have multiple non-bleeding esophageal, gastric, and duodenal ulcers. Plan: Neuro: - Hepatic Encephalopathy - Lactulose held at this time - c/w rifaximin - Ammonia level 66 - Currently AAOx3 on interview but has episode of confusion and waxing/waning - Hx of HIV (not on HAART) with recent CD4 count 361 Pulm: - Treated for COPD vs CHF exacerbation with fluid overload on the floor - c/w nasal cannula - Saturating well and no acute respiratory distress. - Maintain SaO2 > 92% - c/w Lasix 40mg IVP - Monitor ins/outs Cardio: - Avoid aggressive hydration due to significant Biventricular HF - Maintain MAP > 65 - Echo (05/10): EF 39% with septal hypokinesis - Cardio is on consult. Recs appreciated - Hx CHF-rEF, Biventricular HF, HTN, DM, CAD (s/p PCI), HLD GI: - Upper GI bleed 2/2 Multiple Non-bleeding esophageal, gastric, and duodenal ulcers - s/p endoscopy - f/u Bleeding scan results - Plan for repeat EGD today - Continue to transfuse blood as needed - c/w cbc q6 - c/w protonix drip - Follow up further recs from GI. - NPO diet - Based on MELD score and given elevated BUN, INR, Sodium, low albumin, and new abdominal ultrasound findings patient likely has cirrhosis - Surgery consulted. Recs appreciated. - GI is on consult. Recs appreciated. Heme: - Most recent INR is 1.3 - Most recent Hgb is 5.6; will transfuse as needed - f/u hemolytic labs: Direct Bili, haptoglobin, LDH, peripheral smear, retic count - Transfused in total x6 units pRBCs; continue to monitor H/H as patient's Hgb is not responding appropriately to blood transfusion - DVT ppx with SCDs Renal: - High Sodium, High BUN, and low albumin secondary to underlying liver cirrhosis - c/w albumin supplementation - Diego in place - Monitor strict Ins/outs Endo: - ISS (high) - Accuchecks q4 - Maintain blood glucose within 140-180 range as per NICE-SUGAR trial - Hx DM ID: - started on cefepime and doxycycline (Day 2) - ID is on consult. Recs appreciated - Afebrile with no leukocytosis Dispo: Follow up Bleeding Scan results today. Plan for EGD today, as per GI. Will continue to monitor in ICU and transfuse as needed. <Alberto Mcintyre - Last Filed: 09/02/18 11:11> CCU Objective - Vital Signs / Intake & Output Vital Signs (Last 4 hours): Vital Signs Temp Pulse Resp BP Pulse Ox 09/02/18 11:00 84 13 156/80 H 96 09/02/18 10:45 81 14 161/76 H 97 09/02/18 10:30 161/85 H 09/02/18 10:29 90 75 H 09/02/18 10:15 83 148/90 97 09/02/18 10:13 86 21 140/63 98 09/02/18 10:11 100 09/02/18 10:00 82 12/14/18 09:25 148/90 09/02/18 08:17 163/81 H 09/02/18 08:13 87 20 100 09/02/18 08:00 98.4 F 90 110/64 100 09/02/18 07:51 82 15 155/71 H 100 Intake and Output (Last 8hrs): Intake & Output 09/01/18 09/02/18 09/02/18 22:59 06:59 14:59 Intake Total 2410 1140 Output Total 4400 3400 Balance -1989 Intake: IV 340 440 Left Hand 240 Right Antecubital 200 antibiotics 100 protonix 240 Oral 1920 Blood Product 650 Red Blood Cells Cpd As1 325 Lr Unit [id number] Albumin 150 Other 50 Red Blood Cells Cpd As1 50 Lr Unit [id number] Output: Urine 4400 3400 Urethral (Diego) 4400 3400 Other: # Bowel Movements 0 1 - Medications Active Medications: Active Medications Generic Name Dose Route Start Last Admin Trade Name Freq PRN Reason Stop Dose Admin Albumin Human 12.5 gm 08/31/18 08:00 09/02/18 07:59 Albumin Human 25% (12.5 Gm/50 Ml) IV 12.5 gm Q4H TRAVIS Administration Albuterol/Ipratropium 3 ml 08/26/18 02:00 09/02/18 07:17 Duoneb 3 Mg/0.5 Mg (3 Ml) Ud IH 3 ml [id number] TRAVIS Administration Albuterol/Ipratropium 3 ml 08/25/18 20:01 08/25/18 23:35 Duoneb 3 Mg/0.5 Mg (3 Ml) Ud IH 3 ml Q2H PRN Administration Shortness of Breath Atorvastatin Calcium 80 mg 08/25/18 20:15 09/01/18 16:54 Lipitor PO 80 mg DIN TRAVIS Administration Carvedilol 12.5 mg 08/25/18 21:15 08/30/18 11:14 Coreg PO 12.5 mg BID TRAVIS Administration Docusate Sodium 100 mg 08/26/18 10:00 09/02/18 09:38 Colace PO Not Given BID TRAVIS Doxycycline Hyclate 100 mg 09/01/18 10:00 09/02/18 09:38 Doryx PO 09/06/18 10:01 Not Given Q12 TRAVIS Protocol Furosemide 40 mg 08/30/18 10:00 09/02/18 09:25 Lasix IVP 40 mg DAILY TRAVIS Administration Glipizide 5 mg 08/29/18 10:45 08/31/18 07:45 Glucotrol PO Not Given ACB TRAVIS Pantoprazole Sodium 40 mg in 100 mls @ 20 mls/hr 08/30/18 15:00 09/02/18 09:25 Protonix 40mg Ivpb IVPB 20 mls/hr .Q5H TRAVIS Administration Cefepime HCl 1 gm in 100 mls @ 100 mls/hr 09/01/18 14:00 09/02/18 04:32 Maxipime 1gm IVPB 09/10/18 14:01 100 mls/hr Q8 TRAVIS Administration Protocol Potassium Chloride 10 meq in 100 mls @ 50 mls/hr 09/02/18 08:00 09/02/18 09:25 Potassium Chloride 10 Meq/100 Ml IVPB 09/02/18 13:59 50 mls/hr Q2H TRAVIS Administration Potassium Phosphate 15 mmole/ 255 mls @ 42.5 mls/hr 09/02/18 08:15 09/02/18 09:25 Sodium Chloride IVPB 09/02/18 14:14 42.5 mls/hr ONCE ONE Administration Insulin Human Lispro 0 units 08/31/18 08:00 09/02/18 08:00 Humalog High SC 2 units Q4 TRAVIS Administration Protocol Lactulose 20 gm 08/31/18 14:00 09/01/18 17:03 Enulose PO 20 gm TID TRAVIS Administration Losartan Potassium 25 mg 08/27/18 12:30 08/30/18 11:14 Cozaar PO 25 mg DAILY TRAVIS Administration Rifaximin 550 mg 08/31/18 10:00 09/02/18 09:40 Xifaxan PO Not Given BID [facility] Protocol - Patient Studies Lab Studies: Microbiology Studies 08/31/18 17:30 Blood Culture - Preliminary Blood NO GROWTH AFTER 24 HOURS 08/31/18 17:00 Blood Culture - Preliminary Blood NO GROWTH AFTER 24 HOURS 08/30/18 21:47 MRSA Culture (Admit) - Final Nose MRSA NOT DETECTED Lab Studies 09/02/18 09/02/18 09/02/18 Range/Units 07:49 07:45 05:30 WBC (4.5-11.0) 10^3/uL RBC (3.5-6.1) 10^6/uL Hgb (14.0-18.0) g/dL Hct (42.0-52.0) % MCV (80.0-105.0) fl MCH (25.0-35.0) pg MCHC (31.0-37.0) g/dl RDW (11.5-14.5) % Plt Count (120.0-450.0) 10^3/uL MPV (7.0-11.0) fl Retic Count (0.5-1.5) % PT (9.4-12.5) SECONDS INR Sodium (132-148) mmol/L Potassium (3.6-5.0) mmol/L Chloride (98-107) mmol/L Carbon Dioxide (21-33) mmol/L Anion Gap (10-20) BUN (7-21) mg/dL Creatinine (0.8-1.5) mg/dl Est GFR ( Amer) Est GFR (Non-Af Amer) POC Glucose (mg/dL) 182 H (65-110) mg/dL Random Glucose (70-110) mg/dL Calcium (8.4-10.5) mg/dL Phosphorus (2.5-4.5) mg/dL Magnesium (1.7-2.2) mg/dL Total Bilirubin (0.2-1.3) mg/dL Direct Bilirubin 0.6 H (0.0-0.4) mg/dL AST (17-59) U/L ALT (7-56) U/L Alkaline Phosphatase (38-126) U/L Lactate Dehydrogenase 687 (333-699) U/L Total Protein (5.8-8.3) g/dL Albumin (3.0-4.8) g/dL Globulin gm/dL Albumin/Globulin Ratio (1.1-1.8) Procalcitonin (0.19-0.49) NG/ML MARITZA Screen (Negative) Anti-Mitochondrial Ab (Negative) Smooth Muscle Ab Titer Anti-Smooth Muscle Ab (Negative) Blood Type A POSITIVE Antibody Screen Negative Crossmatch See Detail BBK History Checked Patient has bt 12/14/18 12/14/18 12/14/18 Range/Units 05:30 05:00 05:00 WBC 11.5 H (4.5-11.0) 10^3/uL RBC 2.18 L (3.5-6.1) 10^6/uL Hgb 5.6 L* (14.0-18.0) g/dL Hct 18.0 L* (42.0-52.0) % MCV 82.6 (80.0-105.0) fl MCH 25.7 (25.0-35.0) pg MCHC 31.1 (31.0-37.0) g/dl RDW 19.2 H (11.5-14.5) % Plt Count 109 L (120.0-450.0) 10^3/uL MPV 10.1 (7.0-11.0) fl Retic Count 2.42 H (0.5-1.5) % PT (9.4-12.5) SECONDS INR Sodium 145 (132-148) mmol/L Potassium 3.5 L (3.6-5.0) mmol/L Chloride 104 (98-107) mmol/L Carbon Dioxide 37 H (21-33) mmol/L Anion Gap 8 L (10-20) BUN 57 H (7-21) mg/dL Creatinine 1.0 (0.8-1.5) mg/dl Est GFR ( Amer) > 60 Est GFR (Non-Af Amer) > 60 POC Glucose (mg/dL) (65-110) mg/dL Random Glucose 165 H (70-110) mg/dL Calcium 8.2 L (8.4-10.5) mg/dL Phosphorus 2.1 L (2.5-4.5) mg/dL Magnesium 1.8 (1.7-2.2) mg/dL Total Bilirubin 1.1 (0.2-1.3) mg/dL Direct Bilirubin (0.0-0.4) mg/dL AST 29 (17-59) U/L ALT 33 (7-56) U/L Alkaline Phosphatase 105 (38-126) U/L Lactate Dehydrogenase (333-699) U/L Total Protein 5.9 (5.8-8.3) g/dL Albumin 2.7 L (3.0-4.8) g/dL Globulin 3.2 gm/dL Albumin/Globulin Ratio 0.8 L (1.1-1.8) Procalcitonin (0.19-0.49) NG/ML MARITZA Screen (Negative) Anti-Mitochondrial Ab (Negative) Smooth Muscle Ab Titer Anti-Smooth Muscle Ab (Negative) Blood Type Antibody Screen Crossmatch BBK History Checked 09/02/18 09/02/18 09/02/18 Range/Units 05:00 04:01 00:11 WBC (4.5-11.0) 10^3/uL RBC (3.5-6.1) 10^6/uL Hgb (14.0-18.0) g/dL Hct (42.0-52.0) % MCV (80.0-105.0) fl MCH (25.0-35.0) pg MCHC (31.0-37.0) g/dl RDW (11.5-14.5) % Plt Count (120.0-450.0) 10^3/uL MPV (7.0-11.0) fl Retic Count (0.5-1.5) % PT 15.1 H (9.4-12.5) SECONDS INR 1.31 Sodium (132-148) mmol/L Potassium (3.6-5.0) mmol/L Chloride (98-107) mmol/L Carbon Dioxide (21-33) mmol/L Anion Gap (10-20) BUN (7-21) mg/dL Creatinine (0.8-1.5) mg/dl Est GFR ( Amer) Est GFR (Non-Af Amer) POC Glucose (mg/dL) 192 H 231 H (65-110) mg/dL Random Glucose (70-110) mg/dL Calcium (8.4-10.5) mg/dL Phosphorus (2.5-4.5) mg/dL Magnesium (1.7-2.2) mg/dL Total Bilirubin (0.2-1.3) mg/dL Direct Bilirubin (0.0-0.4) mg/dL AST (17-59) U/L ALT (7-56) U/L Alkaline Phosphatase (38-126) U/L Lactate Dehydrogenase (333-699) U/L Total Protein (5.8-8.3) g/dL Albumin (3.0-4.8) g/dL Globulin gm/dL Albumin/Globulin Ratio (1.1-1.8) Procalcitonin (0.19-0.49) NG/ML MARITZA Screen (Negative) Anti-Mitochondrial Ab (Negative) Smooth Muscle Ab Titer Anti-Smooth Muscle Ab (Negative) Blood Type Antibody Screen Crossmatch BBK History Checked 09/01/18 09/01/18 09/01/18 Range/Units 22:56 20:05 16:22 WBC 10.3 (4.5-11.0) 10^3/uL RBC 2.50 L (3.5-6.1) 10^6/uL Hgb 6.4 L* (14.0-18.0) g/dL Hct 20.5 L* (42.0-52.0) % MCV 82.0 (80.0-105.0) fl MCH 25.6 (25.0-35.0) pg MCHC 31.2 (31.0-37.0) g/dl RDW 19.6 H (11.5-14.5) % Plt Count 103 L (120.0-450.0) 10^3/uL MPV 9.7 (7.0-11.0) fl Retic Count (0.5-1.5) % PT (9.4-12.5) SECONDS INR Sodium (132-148) mmol/L Potassium (3.6-5.0) mmol/L Chloride (98-107) mmol/L Carbon Dioxide (21-33) mmol/L Anion Gap (10-20) BUN (7-21) mg/dL Creatinine (0.8-1.5) mg/dl Est GFR ( Amer) Est GFR (Non-Af Amer) POC Glucose (mg/dL) 265 H 279 H (65-110) mg/dL Random Glucose (70-110) mg/dL Calcium (8.4-10.5) mg/dL Phosphorus (2.5-4.5) mg/dL Magnesium (1.7-2.2) mg/dL Total Bilirubin (0.2-1.3) mg/dL Direct Bilirubin (0.0-0.4) mg/dL AST (17-59) U/L ALT (7-56) U/L Alkaline Phosphatase (38-126) U/L Lactate Dehydrogenase (333-699) U/L Total Protein (5.8-8.3) g/dL Albumin (3.0-4.8) g/dL Globulin gm/dL Albumin/Globulin Ratio (1.1-1.8) Procalcitonin (0.19-0.49) NG/ML MARITZA Screen (Negative) Anti-Mitochondrial Ab (Negative) Smooth Muscle Ab Titer Anti-Smooth Muscle Ab (Negative) Blood Type Antibody Screen Crossmatch BBK History Checked 09/01/18 09/01/18 09/01/18 Range/Units 12:00 11:41 07:52 WBC 10.9 (4.5-11.0) 10^3/uL RBC 2.86 L (3.5-6.1) 10^6/uL Hgb 7.2 L (14.0-18.0) g/dL Hct 23.3 L (42.0-52.0) % MCV 81.5 (80.0-105.0) fl MCH 25.2 (25.0-35.0) pg MCHC 30.9 L (31.0-37.0) g/dl RDW 18.7 H (11.5-14.5) % Plt Count 124 (120.0-450.0) 10^3/uL MPV 10.4 (7.0-11.0) fl Retic Count (0.5-1.5) % PT (9.4-12.5) SECONDS INR Sodium (132-148) mmol/L Potassium (3.6-5.0) mmol/L Chloride (98-107) mmol/L Carbon Dioxide (21-33) mmol/L Anion Gap (10-20) BUN (7-21) mg/dL Creatinine (0.8-1.5) mg/dl Est GFR ( Amer) Est GFR (Non-Af Amer) POC Glucose (mg/dL) 174 H 157 H (65-110) mg/dL Random Glucose (70-110) mg/dL Calcium (8.4-10.5) mg/dL Phosphorus (2.5-4.5) mg/dL Magnesium (1.7-2.2) mg/dL Total Bilirubin (0.2-1.3) mg/dL Direct Bilirubin (0.0-0.4) mg/dL AST (17-59) U/L ALT (7-56) U/L Alkaline Phosphatase (38-126) U/L Lactate Dehydrogenase (333-699) U/L Total Protein (5.8-8.3) g/dL Albumin (3.0-4.8) g/dL Globulin gm/dL Albumin/Globulin Ratio (1.1-1.8) Procalcitonin (0.19-0.49) NG/ML MARITZA Screen (Negative) Anti-Mitochondrial Ab (Negative) Smooth Muscle Ab Titer Anti-Smooth Muscle Ab (Negative) Blood Type Antibody Screen Crossmatch BBK History Checked 09/01/18 09/01/18 09/01/18 Range/Units 07:40 04:47 00:01 WBC (4.5-11.0) 10^3/uL RBC (3.5-6.1) 10^6/uL Hgb (14.0-18.0) g/dL Hct (42.0-52.0) % MCV (80.0-105.0) fl MCH (25.0-35.0) pg MCHC (31.0-37.0) g/dl RDW (11.5-14.5) % Plt Count (120.0-450.0) 10^3/uL MPV (7.0-11.0) fl Retic Count (0.5-1.5) % PT (9.4-12.5) SECONDS INR Sodium (132-148) mmol/L Potassium (3.6-5.0) mmol/L Chloride (98-107) mmol/L Carbon Dioxide (21-33) mmol/L Anion Gap (10-20) BUN (7-21) mg/dL Creatinine (0.8-1.5) mg/dl Est GFR ( Amer) Est GFR (Non-Af Amer) POC Glucose (mg/dL) 168 H 161 H (65-110) mg/dL Random Glucose (70-110) mg/dL Calcium (8.4-10.5) mg/dL Phosphorus (2.5-4.5) mg/dL Magnesium (1.7-2.2) mg/dL Total Bilirubin (0.2-1.3) mg/dL Direct Bilirubin (0.0-0.4) mg/dL AST (17-59) U/L ALT (7-56) U/L Alkaline Phosphatase (38-126) U/L Lactate Dehydrogenase (333-699) U/L Total Protein (5.8-8.3) g/dL Albumin (3.0-4.8) g/dL Globulin gm/dL Albumin/Globulin Ratio (1.1-1.8) Procalcitonin 0.24 (0.19-0.49) NG/ML MARITZA Screen (Negative) Anti-Mitochondrial Ab (Negative) Smooth Muscle Ab Titer Anti-Smooth Muscle Ab (Negative) Blood Type Antibody Screen Crossmatch BBK History Checked 08/31/18 08/31/18 08/31/18 Range/Units 21:35 11:55 10:00 WBC (4.5-11.0) 10^3/uL RBC (3.5-6.1) 10^6/uL Hgb (14.0-18.0) g/dL Hct (42.0-52.0) % MCV (80.0-105.0) fl MCH (25.0-35.0) pg MCHC (31.0-37.0) g/dl RDW (11.5-14.5) % Plt Count (120.0-450.0) 10^3/uL MPV (7.0-11.0) fl Retic Count (0.5-1.5) % PT (9.4-12.5) SECONDS INR Sodium (132-148) mmol/L Potassium (3.6-5.0) mmol/L Chloride (98-107) mmol/L Carbon Dioxide (21-33) mmol/L Anion Gap (10-20) BUN (7-21) mg/dL Creatinine (0.8-1.5) mg/dl Est GFR ( Amer) Est GFR (Non-Af Amer) POC Glucose (mg/dL) 171 H 247 H (65-110) mg/dL Random Glucose (70-110) mg/dL Calcium (8.4-10.5) mg/dL Phosphorus (2.5-4.5) mg/dL Magnesium (1.7-2.2) mg/dL Total Bilirubin (0.2-1.3) mg/dL Direct Bilirubin (0.0-0.4) mg/dL AST (17-59) U/L ALT (7-56) U/L Alkaline Phosphatase (38-126) U/L Lactate Dehydrogenase (333-699) U/L Total Protein (5.8-8.3) g/dL Albumin (3.0-4.8) g/dL Globulin gm/dL Albumin/Globulin Ratio (1.1-1.8) Procalcitonin (0.19-0.49) NG/ML MARITZA Screen Negative (Negative) Anti-Mitochondrial Ab Negative (Negative) Smooth Muscle Ab Titer TEST NOT PERFORMED Anti-Smooth Muscle Ab Negative (Negative) Blood Type Antibody Screen Crossmatch BBK History Checked 08/31/18 08/30/18 08/30/18 Range/Units 07:55 22:27 16:23 WBC (4.5-11.0) 10^3/uL RBC (3.5-6.1) 10^6/uL Hgb (14.0-18.0) g/dL Hct (42.0-52.0) % MCV (80.0-105.0) fl MCH (25.0-35.0) pg MCHC (31.0-37.0) g/dl RDW (11.5-14.5) % Plt Count (120.0-450.0) 10^3/uL MPV (7.0-11.0) fl Retic Count (0.5-1.5) % PT (9.4-12.5) SECONDS INR Sodium (132-148) mmol/L Potassium (3.6-5.0) mmol/L Chloride (98-107) mmol/L Carbon Dioxide (21-33) mmol/L Anion Gap (10-20) BUN (7-21) mg/dL Creatinine (0.8-1.5) mg/dl Est GFR ( Amer) Est GFR (Non-Af Amer) POC Glucose (mg/dL) 386 H 434 H* 391 H (65-110) mg/dL Random Glucose (70-110) mg/dL Calcium (8.4-10.5) mg/dL Phosphorus (2.5-4.5) mg/dL Magnesium (1.7-2.2) mg/dL Total Bilirubin (0.2-1.3) mg/dL Direct Bilirubin (0.0-0.4) mg/dL AST (17-59) U/L ALT (7-56) U/L Alkaline Phosphatase (38-126) U/L Lactate Dehydrogenase (333-699) U/L Total Protein (5.8-8.3) g/dL Albumin (3.0-4.8) g/dL Globulin gm/dL Albumin/Globulin Ratio (1.1-1.8) Procalcitonin (0.19-0.49) NG/ML MARITZA Screen (Negative) Anti-Mitochondrial Ab (Negative) Smooth Muscle Ab Titer Anti-Smooth Muscle Ab (Negative) Blood Type Antibody Screen Crossmatch BBK History Checked 08/30/18 08/30/18 08/30/18 Range/Units 11:56 10:35 07:44 WBC (4.5-11.0) 10^3/uL RBC (3.5-6.1) 10^6/uL Hgb (14.0-18.0) g/dL Hct (42.0-52.0) % MCV (80.0-105.0) fl MCH (25.0-35.0) pg MCHC (31.0-37.0) g/dl RDW (11.5-14.5) % Plt Count (120.0-450.0) 10^3/uL MPV (7.0-11.0) fl Retic Count (0.5-1.5) % PT (9.4-12.5) SECONDS INR Sodium (132-148) mmol/L Potassium (3.6-5.0) mmol/L Chloride (98-107) mmol/L Carbon Dioxide (21-33) mmol/L Anion Gap (10-20) BUN (7-21) mg/dL Creatinine (0.8-1.5) mg/dl Est GFR ( Amer) Est GFR (Non-Af Amer) POC Glucose (mg/dL) 338 H 214 H (65-110) mg/dL Random Glucose (70-110) mg/dL Calcium (8.4-10.5) mg/dL Phosphorus (2.5-4.5) mg/dL Magnesium (1.7-2.2) mg/dL Total Bilirubin (0.2-1.3) mg/dL Direct Bilirubin (0.0-0.4) mg/dL AST (17-59) U/L ALT (7-56) U/L Alkaline Phosphatase (38-126) U/L Lactate Dehydrogenase (333-699) U/L Total Protein (5.8-8.3) g/dL Albumin (3.0-4.8) g/dL Globulin gm/dL Albumin/Globulin Ratio (1.1-1.8) Procalcitonin (0.19-0.49) NG/ML MARITZA Screen (Negative) Anti-Mitochondrial Ab (Negative) Smooth Muscle Ab Titer Anti-Smooth Muscle Ab (Negative) Blood Type A POSITIVE Antibody Screen Negative Crossmatch See Detail BBK History Checked Patient has bt 08/30/18 08/29/18 Range/Units 02:28 21:27 WBC (4.5-11.0) 10^3/uL RBC (3.5-6.1) 10^6/uL Hgb (14.0-18.0) g/dL Hct (42.0-52.0) % MCV (80.0-105.0) fl MCH (25.0-35.0) pg MCHC (31.0-37.0) g/dl RDW (11.5-14.5) % Plt Count (120.0-450.0) 10^3/uL MPV (7.0-11.0) fl Retic Count (0.5-1.5) % PT (9.4-12.5) SECONDS INR Sodium (132-148) mmol/L Potassium (3.6-5.0) mmol/L Chloride (98-107) mmol/L Carbon Dioxide (21-33) mmol/L Anion Gap (10-20) BUN (7-21) mg/dL Creatinine (0.8-1.5) mg/dl Est GFR ( Amer) Est GFR (Non-Af Amer) POC Glucose (mg/dL) 310 H 389 H (65-110) mg/dL Random Glucose (70-110) mg/dL Calcium (8.4-10.5) mg/dL Phosphorus (2.5-4.5) mg/dL Magnesium (1.7-2.2) mg/dL Total Bilirubin (0.2-1.3) mg/dL Direct Bilirubin (0.0-0.4) mg/dL AST (17-59) U/L ALT (7-56) U/L Alkaline Phosphatase (38-126) U/L Lactate Dehydrogenase (333-699) U/L Total Protein (5.8-8.3) g/dL Albumin (3.0-4.8) g/dL Globulin gm/dL Albumin/Globulin Ratio (1.1-1.8) Procalcitonin (0.19-0.49) NG/ML MARITZA Screen (Negative) Anti-Mitochondrial Ab (Negative) Smooth Muscle Ab Titer Anti-Smooth Muscle Ab (Negative) Blood Type Antibody Screen Crossmatch BBK History Checked Laboratory Results - last 24 hr 08/29/18 08/30/18 08/30/18 21:27 02:28 07:44 WBC RBC Hgb Hct MCV MCH MCHC RDW Plt Count MPV Retic Count PT INR Sodium Potassium Chloride Carbon Dioxide Anion Gap BUN Creatinine Est GFR ( Amer) Est GFR (Non-Af Amer) POC Glucose (mg/dL) 389 H 310 H 214 H Random Glucose Calcium Phosphorus Magnesium Total Bilirubin Direct Bilirubin AST ALT Alkaline Phosphatase Lactate Dehydrogenase Total Protein Albumin Globulin Albumin/Globulin Ratio Procalcitonin MARITZA Screen Anti-Mitochondrial Ab Smooth Muscle Ab Titer Anti-Smooth Muscle Ab Blood Type Antibody Screen Crossmatch BBK History Checked 08/30/18 08/30/18 08/30/18 10:35 11:56 16:23 WBC RBC Hgb Hct MCV MCH MCHC RDW Plt Count MPV Retic Count PT INR Sodium Potassium Chloride Carbon Dioxide Anion Gap BUN Creatinine Est GFR ( Amer) Est GFR (Non-Af Amer) POC Glucose (mg/dL) 338 H 391 H Random Glucose Calcium Phosphorus Magnesium Total Bilirubin Direct Bilirubin AST ALT Alkaline Phosphatase Lactate Dehydrogenase Total Protein Albumin Globulin Albumin/Globulin Ratio Procalcitonin MARITZA Screen Anti-Mitochondrial Ab Smooth Muscle Ab Titer Anti-Smooth Muscle Ab Blood Type A POSITIVE Antibody Screen Negative Crossmatch See Detail BBK History Checked Patient has bt 08/30/18 08/31/18 08/31/18 22:27 07:55 10:00 WBC RBC Hgb Hct MCV MCH MCHC RDW Plt Count MPV Retic Count PT INR Sodium Potassium Chloride Carbon Dioxide Anion Gap BUN Creatinine Est GFR ( Amer) Est GFR (Non-Af Amer) POC Glucose (mg/dL) 434 H* 386 H Random Glucose Calcium Phosphorus Magnesium Total Bilirubin Direct Bilirubin AST ALT Alkaline Phosphatase Lactate Dehydrogenase Total Protein Albumin Globulin Albumin/Globulin Ratio Procalcitonin MARITZA Screen Negative Anti-Mitochondrial Ab Negative Smooth Muscle Ab Titer TEST NOT PERFORMED Anti-Smooth Muscle Ab Negative Blood Type Antibody Screen Crossmatch BBK History Checked 08/31/18 08/31/18 09/01/18 11:55 21:35 00:01 WBC RBC Hgb Hct MCV MCH MCHC RDW Plt Count MPV Retic Count PT INR Sodium Potassium Chloride Carbon Dioxide Anion Gap BUN Creatinine Est GFR ( Amer) Est GFR (Non-Af Amer) POC Glucose (mg/dL) 247 H 171 H 161 H Random Glucose Calcium Phosphorus Magnesium Total Bilirubin Direct Bilirubin AST ALT Alkaline Phosphatase Lactate Dehydrogenase Total Protein Albumin Globulin Albumin/Globulin Ratio Procalcitonin MARITZA Screen Anti-Mitochondrial Ab Smooth Muscle Ab Titer Anti-Smooth Muscle Ab Blood Type Antibody Screen Crossmatch BBK History Checked 09/01/18 09/01/18 09/01/18 04:47 07:40 07:52 WBC RBC Hgb Hct MCV MCH MCHC RDW Plt Count MPV Retic Count PT INR Sodium Potassium Chloride Carbon Dioxide Anion Gap BUN Creatinine Est GFR ( Amer) Est GFR (Non-Af Amer) POC Glucose (mg/dL) 168 H 157 H Random Glucose Calcium Phosphorus Magnesium Total Bilirubin Direct Bilirubin AST ALT Alkaline Phosphatase Lactate Dehydrogenase Total Protein Albumin Globulin Albumin/Globulin Ratio Procalcitonin 0.24 MARITZA Screen Anti-Mitochondrial Ab Smooth Muscle Ab Titer Anti-Smooth Muscle Ab Blood Type Antibody Screen Crossmatch BBK History Checked 09/01/18 09/01/18 09/01/18 11:41 12:00 16:22 WBC 10.9 RBC 2.86 L Hgb 7.2 L Hct 23.3 L MCV 81.5 MCH 25.2 MCHC 30.9 L RDW 18.7 H Plt Count 124 MPV 10.4 Retic Count PT INR Sodium Potassium Chloride Carbon Dioxide Anion Gap BUN Creatinine Est GFR ( Amer) Est GFR (Non-Af Amer) POC Glucose (mg/dL) 174 H 279 H Random Glucose Calcium Phosphorus Magnesium Total Bilirubin Direct Bilirubin AST ALT Alkaline Phosphatase Lactate Dehydrogenase Total Protein Albumin Globulin Albumin/Globulin Ratio Procalcitonin MARITZA Screen Anti-Mitochondrial Ab Smooth Muscle Ab Titer Anti-Smooth Muscle Ab Blood Type Antibody Screen Crossmatch BBK History Checked 09/01/18 09/01/1818 20:05 22:56 00:11 WBC 10.3 RBC 2.50 L Hgb 6.4 L* Hct 20.5 L* MCV 82.0 MCH 25.6 MCHC 31.2 RDW 19.6 H Plt Count 103 L MPV 9.7 Retic Count PT INR Sodium Potassium Chloride Carbon Dioxide Anion Gap BUN Creatinine Est GFR ( Amer) Est GFR (Non-Af Amer) POC Glucose (mg/dL) 265 H 231 H Random Glucose Calcium Phosphorus Magnesium Total Bilirubin Direct Bilirubin AST ALT Alkaline Phosphatase Lactate Dehydrogenase Total Protein Albumin Globulin Albumin/Globulin Ratio Procalcitonin MARITZA Screen Anti-Mitochondrial Ab Smooth Muscle Ab Titer Anti-Smooth Muscle Ab Blood Type Antibody Screen Crossmatch BBK History Checked 09/02/18 09/02/18 09/02/18 04:01 05:00 05:00 WBC RBC Hgb Hct MCV MCH MCHC RDW Plt Count MPV Retic Count PT 15.1 H INR 1.31 Sodium 145 Potassium 3.5 L Chloride 104 Carbon Dioxide 37 H Anion Gap 8 L BUN 57 H Creatinine 1.0 Est GFR ( Amer) > 60 Est GFR (Non-Af Amer) > 60 POC Glucose (mg/dL) 192 H Random Glucose 165 H Calcium 8.2 L Phosphorus 2.1 L Magnesium 1.8 Total Bilirubin 1.1 Direct Bilirubin AST 29 ALT 33 Alkaline Phosphatase 105 Lactate Dehydrogenase Total Protein 5.9 Albumin 2.7 L Globulin 3.2 Albumin/Globulin Ratio 0.8 L Procalcitonin MARITZA Screen Anti-Mitochondrial Ab Smooth Muscle Ab Titer Anti-Smooth Muscle Ab Blood Type Antibody Screen Crossmatch BBK History Checked 09/02/18 09/02/18 09/02/18 05:00 05:30 05:30 WBC 11.5 H RBC 2.18 L Hgb 5.6 L* Hct 18.0 L* MCV 82.6 MCH 25.7 MCHC 31.1 RDW 19.2 H Plt Count 109 L MPV 10.1 Retic Count 2.42 H PT INR Sodium Potassium Chloride Carbon Dioxide Anion Gap BUN Creatinine Est GFR ( Amer) Est GFR (Non-Af Amer) POC Glucose (mg/dL) Random Glucose Calcium Phosphorus Magnesium Total Bilirubin Direct Bilirubin 0.6 H AST ALT Alkaline Phosphatase Lactate Dehydrogenase 687 Total Protein Albumin Globulin Albumin/Globulin Ratio Procalcitonin MARITZA Screen Anti-Mitochondrial Ab Smooth Muscle Ab Titer Anti-Smooth Muscle Ab Blood Type Antibody Screen Crossmatch BBK History Checked 09/02/18 09/02/18 07:45 07:49 WBC RBC Hgb Hct MCV MCH MCHC RDW Plt Count MPV Retic Count PT INR Sodium Potassium Chloride Carbon Dioxide Anion Gap BUN Creatinine Est GFR ( Amer) Est GFR (Non-Af Amer) POC Glucose (mg/dL) 182 H Random Glucose Calcium Phosphorus Magnesium Total Bilirubin Direct Bilirubin AST ALT Alkaline Phosphatase Lactate Dehydrogenase Total Protein Albumin Globulin Albumin/Globulin Ratio Procalcitonin MARITZA Screen Anti-Mitochondrial Ab Smooth Muscle Ab Titer Anti-Smooth Muscle Ab Blood Type A POSITIVE Antibody Screen Negative Crossmatch See Detail BBK History Checked Patient has bt Critical Care Progress Note - Nutrition Nutrition: Nutrition Category Date Time Status NPO Diet [DIET] Diets 09/02/18 Breakfast Ordered Addendum Addendum: 09/02/18 11:11 MICU Attending Addendum: 53 M with PMHx HIV CD4 361 (not on HAART), COPD, CHF-rEF (ECHO on 05/10 showing EF 39% with septal hypokinesis), Biventricular HF, CAD s/p PCI, DM, HTN, HLD being managed for COPD/CHF exasc found to be grually severely anemia s/p EGD found to have multiple non-bleeding esophageal, gastric, and duodenal ulcers. HB continues to drop despite PRBCs he is either bleeding still or hemolyzing ordered hemolysis panel f/u bleeding scan and gi recs with results of scan cont lactulose of elevated NH3 / hepatic enceph monitor pulm status given massive volume transfusion and poor heart function Rest of care as above Alberto Mcintyre MD Pulmonary Critical Care Attending
--- NOTE | 2018-09-02 10:42 | CP.PCM.PN ---
Subjective - Date & Time of Evaluation Date of Evaluation: 09/02/18 Time of Evaluation: 06:45 - Subjective Subjective: Surgery Progress note- Dr. Vizcarra Patient seen and examined at bedside. Reported to have 1 episode of melanotic stool overnight. Hgb this AM below 7. Patient is currently GCS 15, AAOx3 non- focal, moving all 4 extremities. Remains NPO with minimal nausea, no vomiting. Total number of transfusions: 6uPRBC. 1u scheduled to be transfused later today. Bleeding scan planned for today Objective - Vital Signs/Intake and Output Vital Signs (last 24 hours): Temp Pulse Resp BP Pulse Ox 98.4 F 87 20 148/90 100 09/02/18 08:00 09/02/18 08:13 09/02/18 08:13 09/02/18 09:25 09/02/18 08:13 Intake and Output: 09/02/18 09/02/18 06:59 18:59 Intake Total 1140 Output Total 3400 Balance -2260 - Medications Medications: Current Medications Albumin Human (Albumin Human 25% (12.5 Gm/50 Ml)) 12.5 gm IV Q4H [facility] Last Admin: 09/02/18 07:59 Dose: 12.5 gm Albuterol/Ipratropium (Duoneb 3 Mg/0.5 Mg (3 Ml) Ud) 3 ml IH [id number] [facility] Last Admin: 09/02/18 07:17 Dose: 3 ml Albuterol/Ipratropium (Duoneb 3 Mg/0.5 Mg (3 Ml) Ud) 3 ml IH Q2H PRN PRN Reason: Shortness of Breath Last Admin: 08/25/18 23:35 Dose: 3 ml Atorvastatin Calcium (Lipitor) 80 mg PO DIN [facility] Last Admin: 09/01/18 16:54 Dose: 80 mg Carvedilol (Coreg) 12.5 mg PO BID [facility] Last Admin: 08/30/18 11:14 Dose: 12.5 mg Docusate Sodium (Colace) 100 mg PO BID [facility] Last Admin: 09/02/18 09:38 Dose: Not Given Doxycycline Hyclate (Doryx) 100 mg PO Q12 [facility]; Protocol Stop: 09/06/18 10:01 Last Admin: 09/02/18 09:38 Dose: Not Given Furosemide (Lasix) 40 mg IVP DAILY [facility] Last Admin: 09/02/18 09:25 Dose: 40 mg Glipizide (Glucotrol) 5 mg PO ACB [facility] Last Admin: 08/31/18 07:45 Dose: Not Given Pantoprazole Sodium (Protonix 40mg Ivpb) 40 mg in 100 mls @ 20 mls/hr IVPB .Q5H [facility] Last Admin: 09/02/18 09:25 Dose: 20 mls/hr Cefepime HCl (Maxipime 1gm) 1 gm in 100 mls @ 100 mls/hr IVPB Q8 [facility]; Protocol Stop: 09/10/18 14:01 Last Admin: 09/02/18 04:32 Dose: 100 mls/hr Potassium Chloride (Potassium Chloride 10 Meq/100 Ml) 10 meq in 100 mls @ 50 mls/hr IVPB Q2H [facility] Stop: 09/02/18 13:59 Last Admin: 09/02/18 09:25 Dose: 50 mls/hr Potassium Phosphate 15 mmole/ (Sodium Chloride) 255 mls @ 42.5 mls/hr IVPB ONCE ONE Stop: 09/02/18 14:14 Last Admin: 09/02/18 09:25 Dose: 42.5 mls/hr Insulin Human Lispro (Humalog High) 0 units SC Q4 [facility]; Protocol Last Admin: 09/02/18 08:00 Dose: 2 units Lactulose (Enulose) 20 gm PO TID [facility] Last Admin: 09/01/18 17:03 Dose: 20 gm Losartan Potassium (Cozaar) 25 mg PO DAILY [facility] Last Admin: 08/30/18 11:14 Dose: 25 mg Rifaximin (Xifaxan) 550 mg PO BID [facility]; Protocol Last Admin: 09/02/18 09:40 Dose: Not Given - Labs Labs: 09/02/18 05:00 09/02/18 05:00 PT 15.1 SECONDS (9.4-12.5) H 09/02/18 05:00 INR 1.31 09/02/18 05:00 APTT 28.4 Seconds (25.1-36.5) 08/31/18 17:50 - Constitutional Appears: Non-toxic, No Acute Distress - Head Exam Head Exam: ATRAUMATIC - Eye Exam Eye Exam: EOMI, Scleral icterus - ENT Exam ENT Exam: Mucous Membranes Moist - Respiratory Exam Respiratory Exam: NORMAL BREATHING PATTERN. absent: Accessory Muscle Use, Respiratory Distress - Cardiovascular Exam Cardiovascular Exam: +S1, +S2. absent: Bradycardia, Tachycardia - GI/Abdominal Exam GI & Abdominal Exam: Soft. absent: Distended, Firm, Guarding, Rigid, Tenderness - Rectal Exam Rectal Exam: Black Stool - Extremities Exam Extremities Exam: absent: Calf Tenderness - Neurological Exam Neurological Exam: Alert, Awake, Oriented x3 - Psychiatric Exam Psychiatric exam: Normal Affect - Skin Skin Exam: Intact, Warm Assessment and Plan - Assessment and Plan (Free Text) Assessment: 53M w/ GIB s/p EGD found to have multiple gastric and duodenal ulcers; Hgb trending down after total of 6u PRBC transfusion Plan: - pain control PRN - Bleeding scan later today to attempt to locate active bleeding - GI ppx - c/s GI; all recs appreciated - f/u H/H - transfuse PRN - further management per critical care team - will continue to follow - discussed w/ Dr. Vizcarra surgical attending PGY2
--- NOTE | 2018-09-02 11:32 | NM ---
Date of service: 09/02/2018 PROCEDURE: Nuclear medicine gastrointestinal bleeding scan. HISTORY: active bleeding; melena; drop in Hgb COMPARISON: None available. TECHNIQUE: 4ccof patient blood was withdrawn and mixed with 20.8mCi of technetium ultra tagged. Images of the abdomen and pelvis were obtained in the anterior and posterior projection at 1 min intervals over a period of 45 min. FINDINGS: Radiotracer is identified in the midline likely originating in the stomach with delayed images identified radionuclide in the duodenum and small bowel. IMPRESSION: Positive study for acute gastrointestinal hemorrhage. The site of hemorrhage likely is in the stomach with migration through the duodenum and proximal small bowel.
--- NOTE | 2018-09-02 12:12 | CP.PCM.PN ---
Subjective - Date & Time of Evaluation Date of Evaluation: 09/02/18 Time of Evaluation: 11:10 - Subjective Subjective: Afebrile, still having melena, still has some shortness of breath at rest but not in distress. Objective - Vital Signs/Intake and Output Vital Signs (last 24 hours): Temp Pulse Resp BP Pulse Ox 98.4 F 116 H 15 111/66 100 08/31/18 15:00 08/31/18 15:00 08/31/18 15:00 08/31/18 15:00 08/31/18 14:54 Intake and Output: 08/31/18 08/31/18 06:59 18:59 Intake Total 1475 386 Balance 1475 386 - Medications Medications: Current Medications Albumin Human (Albumin Human 25% (12.5 Gm/50 Ml)) 12.5 gm IV Q4H [facility] Last Admin: 08/31/18 16:28 Dose: 12.5 gm Albuterol/Ipratropium (Duoneb 3 Mg/0.5 Mg (3 Ml) Ud) 3 ml IH [id number] [facility] Last Admin: 08/31/18 14:18 Dose: 3 ml Albuterol/Ipratropium (Duoneb 3 Mg/0.5 Mg (3 Ml) Ud) 3 ml IH Q2H PRN PRN Reason: Shortness of Breath Last Admin: 08/25/18 23:35 Dose: 3 ml Atorvastatin Calcium (Lipitor) 80 mg PO DIN [facility] Last Admin: 08/31/18 16:28 Dose: Not Given Carvedilol (Coreg) 12.5 mg PO BID [facility] Last Admin: 08/30/18 11:14 Dose: 12.5 mg Docusate Sodium (Colace) 100 mg PO BID [facility] Last Admin: 08/31/18 09:45 Dose: Not Given Furosemide (Lasix) 40 mg IVP DAILY [facility] Last Admin: 08/31/18 09:44 Dose: 40 mg Glipizide (Glucotrol) 5 mg PO ACB [facility] Last Admin: 08/31/18 07:45 Dose: Not Given Pantoprazole Sodium (Protonix 40mg Ivpb) 40 mg in 100 mls @ 20 mls/hr IVPB .Q5H [facility] Last Admin: 08/31/18 13:04 Dose: 20 mls/hr Ceftriaxone Sodium (Rocephin 1 Gram Ivpb) 1 gm in 100 mls @ 100 mls/hr IVPB DAILY [facility]; Protocol Last Admin: 08/31/18 09:46 Dose: 100 mls/hr Dobutamine HCl/Dextrose (Dobutamine/Dextrose 5% 500mg/250ml) 500 mg in 250 mls @ 8.957 mls/hr IV .Q24H [facility]; Protocol PRN Reason: TITRATE PER PROTOCOL Last Admin: 08/31/18 09:46 Dose: 2.5 mcg/kg/min, 8.957 mls/hr Propofol (Diprivan) 1,000 mg in 100 mls @ 3.583 mls/hr IV .Q24H [facility]; Protocol PRN Reason: TITRATE PER MD ORDER Last Titration: 08/31/18 16:31 Dose: 30 mcg/kg/min, 21.498 mls/hr Insulin Human Lispro (Humalog High) 0 units SC Q4 [facility]; Protocol Last Admin: 08/31/18 16:33 Dose: 4 units Lactulose (Enulose) 20 gm PO TID [facility] Last Admin: 08/31/18 14:00 Dose: Not Given Losartan Potassium (Cozaar) 25 mg PO DAILY [facility] Last Admin: 08/30/18 11:14 Dose: 25 mg Methylprednisolone (Solu-Medrol) 40 mg IVP DAILY [facility] Last Admin: 08/31/18 09:45 Dose: 40 mg Rifaximin (Xifaxan) 550 mg PO BID [facility]; Protocol Last Admin: 08/31/18 10:30 Dose: Not Given - Labs Labs: 08/31/18 10:40 08/31/18 10:40 PT 13.5 SECONDS (9.4-12.5) H 08/31/18 10:40 INR 1.17 08/31/18 10:40 APTT 31.6 Seconds (25.1-36.5) 08/25/18 16:40 - Constitutional Appears: Chronically Ill - Head Exam Head Exam: NORMAL INSPECTION - Respiratory Exam Respiratory Exam: Decreased Breath Sounds - Cardiovascular Exam Cardiovascular Exam: +S1, +S2 - GI/Abdominal Exam GI & Abdominal Exam: Soft. absent: Tenderness Assessment and Plan - Assessment and Plan (Free Text) Plan: Assessment SIRS due to acute on chronic systolic heart failure, R/O left sided HCAP chronic anemia with drop in hemoglobin, due to GI bleeding positive HIV PCR and positive 4th generation antibody test, acute versus chronic HIV infection S/P sepsis due to right lower lobe HCAP, S/P treatment with antibiotics obesity with BMI 35 COPD Plan T-cell count is above 200 - patient will need to be arranged to see an HIV specialist on discharge for further management of HIV ICU managing anemia and respiratory distress - continue Cefepime and Doxycycline day 2 for 4-7 days will continue to monitor clinically follow up further plans of GI regarding GI bleeding overall prognosis is poor
[2018-09-02 12:31] LABS: MEAN CELL VOLUME 84.4 fl (80.0-105.0); MEAN CORPUSCULAR HEMOGLOBIN 27.4 pg (25.0-35.0); MEAN CORPUSCULAR HGB CONC 32.5 g/dl (31.0-37.0); MEAN PLATELET VOLUME 10.9 fl (7.0-11.0); RBC 2.37 10^6/uL (3.5-6.1); WHITE BLOOD COUNT 11.4 10^3/uL (4.5-11.0)
[2018-09-02 12:34] LABS: HEMOGLOBIN 6.5 g/dL (14.0-18.0)
[2018-09-02] MEDS ORDERED: Propofol 10 mg/ml Inj (20 ML) ONE (13:13)
[2018-09-02] MEDS ORDERED: Etomidate 20 mg/10ml Inj IV ONE (13:13)
[2018-09-02] MEDS ORDERED: ePHEDrine 50 mg/ml Inj ONE (13:35)
[2018-09-02] MEDS ORDERED: Phenylephrine 10 mg/ml Inj ONE (13:48)
[2018-09-02 16:18] LABS: HEMOGLOBIN 7.2 g/dL (14.0-18.0); MEAN CELL VOLUME 85.1 fl (80.0-105.0); MEAN CORPUSCULAR HGB CONC 34.1 g/dl (31.0-37.0); MEAN PLATELET VOLUME 9.3 fl (7.0-11.0); RBC 2.48 10^6/uL (3.5-6.1); RED CELL DISTRIBUTION WIDTH 17.3 % (11.5-14.5); WHITE BLOOD COUNT 9.9 10^3/uL (4.5-11.0)
--- NOTE | 2018-09-02 20:39 | PN ---
DATE: 09/02/2018 SUBJECTIVE: The patient is confused, but he denies any shortness of breath or chest discomfort. PHYSICAL EXAMINATION: VITAL SIGNS: Blood pressure 116/59, heart rate 95, temperature 97.7, and respirations 22. HEENT: Pale conjunctivae. CHEST: Diminished breath sounds over the bases. HEART: S1 and S2 are regular. EXTREMITIES: 2+ pitting edema. LABORATORY DATA: Today's hemoglobin and hematocrit are 7.1 and 21.1, white count 9.9, and platelet count 82,000. Today's SMA-7: Sodium 145, potassium 3.5, chloride 104, CO2 of 37, glucose 165, BUN 57, and creatinine 1. Magnesium is within normal limit at 1.8. Bleeding scan revealed positive study for acute gastrointestinal hemorrhage. The site of hemorrhage is slightly in the stomach with migrations over the jejunum and proximal small bowel. ASSESSMENT: 1. Biventricular failure. 2. Upper gastrointestinal bleeding. 3. Liver cirrhosis and ammonia encephalopathy. 4. Prerenal azotemia. 5. Hypokalemia. 6. Human immunodeficiency virus positive. RECOMMENDATIONS: Continue current IV albumin. Meron and Damian are being on hold. Continue Lasix 40 mg intravenously daily, Maxipime at 1 g every 8 hours, and Protonix 40 mg IV piggyback every 5 hours. Beny Salgado MD
[2018-09-02 23:28] LABS: MEAN CELL VOLUME 85.7 fl (80.0-105.0); MEAN CORPUSCULAR HEMOGLOBIN 27.9 pg (25.0-35.0); MEAN CORPUSCULAR HGB CONC 32.5 g/dl (31.0-37.0); MEAN PLATELET VOLUME 9.3 fl (7.0-11.0); RBC 2.44 10^6/uL (3.5-6.1); RED CELL DISTRIBUTION WIDTH 17.3 % (11.5-14.5); WHITE BLOOD COUNT 8.5 10^3/uL (4.5-11.0)
[2018-09-02 23:35] LABS: HEMOGLOBIN 6.8 g/dL (14.0-18.0)
[2018-09-03] MEDS: Albumin Human 25% (12.5 gm/50 ml) IV SCH ×7 (00:20→23:49)
[2018-09-03] MEDS: Insulin Lispro (HUMAlog) HIGH Coverage SC SCH ×6 (00:45→23:58)
[2018-09-03] MEDS: Albuterol-Ipratrop 3 mg / 0.5 (3 ml) UD IH SCH ×4 (02:35→20:00)
[2018-09-03] MEDS ORDERED: Morphine 2 mg/ml ISec IVP STA (04:26)
[2018-09-03] MEDS: Cefepime 1gm in NS 100ml 1 GM/100 ML BAG IVPB SCH ×4 (05:01→21:08)
[2018-09-03 06:29] LABS: ALB/GLOB RATIO 1.1 (1.1-1.8); ALT/SGPT 27 U/L (7-56); AST/SGOT 32 U/L (17-59); BLOOD UREA NITROGEN 43 mg/dL (7-21); CALCIUM 8.4 mg/dL (8.4-10.5); GFR NON-AFRICAN AMERICAN > 60
[2018-09-03 06:32] LABS: MEAN CELL VOLUME 86.4 fl (80.0-105.0); MEAN CORPUSCULAR HEMOGLOBIN 28.4 pg (25.0-35.0); MEAN CORPUSCULAR HGB CONC 32.9 g/dl (31.0-37.0); MEAN PLATELET VOLUME 9.6 fl (7.0-11.0); RBC 2.43 10^6/uL (3.5-6.1); WHITE BLOOD COUNT 8.1 10^3/uL (4.5-11.0)
[2018-09-03 07:23] LABS: HEMOGLOBIN 6.9 g/dL (14.0-18.0)
--- NOTE | 2018-09-03 08:11 | CP.PCM.PN ---
Subjective - Date & Time of Evaluation Date of Evaluation: 09/03/18 Time of Evaluation: 07:00 - Subjective Subjective: General Surgery progress note for Dr. Vizcarra Pt seen and examined this AM. Patient had an EGD yesterday which found a bleeding vessel in the descending duodenum which was injected with epi and clipped at the base. Patient has not had any bloody BM's since and denies any abdominal pain at this time but his hemoglobin dropped to 6.8 and a unit of PRBC was administered overnight with inadequate response, hgb 6.9 this AM. Objective - Vital Signs/Intake and Output Vital Signs (last 24 hours): Temp Pulse Resp BP Pulse Ox 98.2 F 90 13 139/79 97 09/03/18 05:00 09/03/18 05:31 09/03/18 05:00 09/03/18 05:00 09/03/18 05:00 Intake and Output: 09/03/18 09/03/18 06:59 18:59 Intake Total 325 Balance 325 - Medications Medications: Current Medications Albumin Human (Albumin Human 25% (12.5 Gm/50 Ml)) 12.5 gm IV Q4H [facility] Last Admin: 09/03/18 04:10 Dose: 12.5 gm Albuterol/Ipratropium (Duoneb 3 Mg/0.5 Mg (3 Ml) Ud) 3 ml IH [id number] [facility] Last Admin: 09/03/18 02:35 Dose: 3 ml Albuterol/Ipratropium (Duoneb 3 Mg/0.5 Mg (3 Ml) Ud) 3 ml IH Q2H PRN PRN Reason: Shortness of Breath Last Admin: 08/25/18 23:35 Dose: 3 ml Atorvastatin Calcium (Lipitor) 80 mg PO DIN [facility] Last Admin: 09/02/18 16:29 Dose: Not Given Carvedilol (Coreg) 12.5 mg PO BID [facility] Last Admin: 08/30/18 11:14 Dose: 12.5 mg Docusate Sodium (Colace) 100 mg PO BID [facility] Last Admin: 09/02/18 17:29 Dose: Not Given Doxycycline Hyclate (Doryx) 100 mg PO Q12 [facility]; Protocol Stop: 09/06/18 10:01 Last Admin: 09/02/18 21:49 Dose: 100 mg Furosemide (Lasix) 40 mg IVP DAILY [facility] Last Admin: 09/02/18 09:25 Dose: 40 mg Glipizide (Glucotrol) 5 mg PO ACB [facility] Last Admin: 08/31/18 07:45 Dose: Not Given Pantoprazole Sodium (Protonix 40mg Ivpb) 40 mg in 100 mls @ 20 mls/hr IVPB .Q5H [facility] Last Admin: 09/03/18 00:00 Dose: 20 mls/hr Cefepime HCl (Maxipime 1gm) 1 gm in 100 mls @ 100 mls/hr IVPB Q8 [facility]; Protocol Stop: 09/10/18 14:01 Last Admin: 09/03/18 05:01 Dose: 100 mls/hr Insulin Human Lispro (Humalog High) 0 units SC Q4 [facility]; Protocol Last Admin: 09/03/18 00:45 Dose: Not Given Lactulose (Enulose) 20 gm PO TID [facility] Last Admin: 09/01/18 17:03 Dose: 20 gm Losartan Potassium (Cozaar) 25 mg PO DAILY [facility] Last Admin: 08/30/18 11:14 Dose: 25 mg Rifaximin (Xifaxan) 550 mg PO BID [facility]; Protocol Last Admin: 09/02/18 17:29 Dose: Not Given - Labs Labs: 09/03/18 05:00 09/03/18 05:00 PT 15.1 SECONDS (9.4-12.5) H 09/02/18 05:00 INR 1.31 09/02/18 05:00 APTT 28.4 Seconds (25.1-36.5) 08/31/18 17:50 - Constitutional Appears: Well, Non-toxic, No Acute Distress - Head Exam Head Exam: ATRAUMATIC, NORMOCEPHALIC - Eye Exam Eye Exam: Normal appearance. absent: Conjunctival injection, Scleral icterus - ENT Exam ENT Exam: Mucous Membranes Moist, Normal Oropharynx - Respiratory Exam Respiratory Exam: NORMAL BREATHING PATTERN. absent: Accessory Muscle Use, Respiratory Distress - Cardiovascular Exam Cardiovascular Exam: RRR - GI/Abdominal Exam GI & Abdominal Exam: Soft. absent: Distended, Tenderness - Extremities Exam Extremities Exam: absent: Calf Tenderness, Tenderness - Neurological Exam Neurological Exam: Alert, Awake, Oriented x3 - Psychiatric Exam Psychiatric exam: Normal Affect, Normal Mood - Skin Skin Exam: Dry, Normal Color, Warm Assessment and Plan - Assessment and Plan (Free Text) Assessment: 53M with GI bleed from duodenal ulcer Plan: Continue to trend CBC and transfuse blood products as needed F/U GI recommendations Continue to monitor vitals and UOP closely Continue protonix drip Will continue to monitor closely--no indication for surgical intervention at this time--may recommend IR consult for angiogram if patient deteriorates or continues to have significant bleeding Discussed with Dr. Zackery Rivas, PGY2
[2018-09-03] MEDS ORDERED: Phytonadione 10 mg/ml Inj (Adult) SC ONE (08:17)
[2018-09-03 08:42] LABS: INR 1.34; PARTIAL THROMBOPLASTIN TIME 29.6 Seconds (25.1-36.5); PROTHROMBIN TIME 15.5 SECONDS (9.4-12.5)
[2018-09-03] MEDS: Pantoprazole 40mg/100mL NS 40 MG/100 ML BAG IVPB SCH ×4 (09:00→21:07)
--- NOTE | 2018-09-03 09:34 | RAD ---
HISTORY: chf COMPARISON: Chest x-ray performed 08/31/18 TECHNIQUE: Chest, one view. FINDINGS: Interval removal of endotracheal tube. LUNGS: Mild pulmonary venous congestion. Left basilar atelectasis/infiltrate and or pleural effusion. No definite pneumothorax. CARDIOVASCULAR: Cardiomegaly. OSSEOUS STRUCTURES: Degenerative changes. VISUALIZED UPPER ABDOMEN: Unremarkable. OTHER FINDINGS: None. IMPRESSION: Interval removal of endotracheal tube. Mild pulmonary venous congestion. Left basilar atelectasis/infiltrate and or pleural effusion. Cardiomegaly.
--- NOTE | 2018-09-03 11:01 | CP.PCM.PN ---
<Trav Mosley - Last Filed: 09/03/18 15:38> Subjective - Date & Time of Evaluation Date of Evaluation: 09/03/18 Time of Evaluation: 09:40 - Subjective Subjective: PGY-4 GI Fellow Prog Note Pt lying in bed when seen this AM. Denied any complaints. Hgb 6.8 to 6.9 post transfusion (inadequate response). Pt states he thinks he had a dark stool over night. Denied abd pain, N/V nor hematochezia. 5 point ROS negative other than stated above Objective - Vital Signs/Intake and Output Vital Signs (last 24 hours): Temp Pulse Resp BP Pulse Ox 98.7 F 92 H 17 149/89 99 09/03/18 10:45 09/03/18 10:45 09/03/18 10:45 09/03/18 10:45 09/03/18 09:00 Intake and Output: 09/03/18 09/03/18 06:59 18:59 Intake Total 325 0 Balance 325 0 - Medications Medications: Current Medications Albumin Human (Albumin Human 25% (12.5 Gm/50 Ml)) 12.5 gm IV Q4H [facility] Last Admin: 09/03/18 08:44 Dose: 12.5 gm Albuterol/Ipratropium (Duoneb 3 Mg/0.5 Mg (3 Ml) Ud) 3 ml IH [id number] [facility] Last Admin: 09/03/18 08:14 Dose: 3 ml Albuterol/Ipratropium (Duoneb 3 Mg/0.5 Mg (3 Ml) Ud) 3 ml IH Q2H PRN PRN Reason: Shortness of Breath Last Admin: 08/25/18 23:35 Dose: 3 ml Atorvastatin Calcium (Lipitor) 80 mg PO DIN [facility] Last Admin: 09/02/18 16:29 Dose: Not Given Carvedilol (Coreg) 12.5 mg PO BID [facility] Last Admin: 08/30/18 11:14 Dose: 12.5 mg Docusate Sodium (Colace) 100 mg PO BID [facility] Last Admin: 09/02/18 17:29 Dose: Not Given Doxycycline Hyclate (Doryx) 100 mg PO Q12 [facility]; Protocol Stop: 09/06/18 10:01 Last Admin: 09/03/18 08:50 Dose: 100 mg Furosemide (Lasix) 40 mg IVP DAILY [facility] Last Admin: 09/02/18 09:25 Dose: 40 mg Glipizide (Glucotrol) 5 mg PO ACB [facility] Last Admin: 08/31/18 07:45 Dose: Not Given Pantoprazole Sodium (Protonix 40mg Ivpb) 40 mg in 100 mls @ 20 mls/hr IVPB .Q5H [facility] Last Admin: 09/03/18 00:00 Dose: 20 mls/hr Cefepime HCl (Maxipime 1gm) 1 gm in 100 mls @ 100 mls/hr IVPB Q8 [facility]; Protocol Stop: 09/10/18 14:01 Last Admin: 09/03/18 08:43 Dose: 100 mls/hr Insulin Human Lispro (Humalog High) 0 units SC Q4 [facility]; Protocol Last Admin: 09/03/18 04:30 Dose: Not Given Lactulose (Enulose) 20 gm PO TID [facility] Last Admin: 09/01/18 17:03 Dose: 20 gm Losartan Potassium (Cozaar) 25 mg PO DAILY [facility] Last Admin: 08/30/18 11:14 Dose: 25 mg Rifaximin (Xifaxan) 550 mg PO BID [facility]; Protocol Last Admin: 09/03/18 08:50 Dose: 550 mg - Labs Labs: 09/03/18 05:00 09/03/18 05:00 PT 15.5 SECONDS (9.4-12.5) H 09/03/18 08:30 INR 1.34 09/03/18 08:30 APTT 29.6 Seconds (25.1-36.5) 09/03/18 08:30 - Constitutional Appears: Well, No Acute Distress - Head Exam Head Exam: ATRAUMATIC, NORMAL INSPECTION - Eye Exam Eye Exam: EOMI, Normal appearance - ENT Exam ENT Exam: Mucous Membranes Dry. absent: Mucous Membranes Moist - GI/Abdominal Exam GI & Abdominal Exam: Soft, Normal Bowel Sounds. absent: Bruit, Distended, Firm, Guarding, Rigid, Tenderness, Mass, Organomegaly, Pulsatile Mass, Rebound Assessment and Plan - Assessment and Plan (Free Text) Assessment: 53yo male with PMHx significant for HIV not on HAART, COPD, systolic CHF with biventricular failure, CAD s/p PCI, DM, HTN, hyperlipidemia who presented to the hospital 5 days ago with shortness of breath -Acute blood loss anemia 2/2 severe PUD -Biventricular heart failure -COPD with acute exacerbation -Cirrhosis c/b hepatic encephalopathy -CAD -HIV Plan: - Repeat EGD on 09/02 with actively bleeding vessel Duodenal (FC1b) Ulcer s/p epi injs and clip with hemostasis - Hgb did not appropriate respond to transfusion overnight --- If continues to drop, will need IR consult for likely embolization - Recommend 1 unit FFP transfused/4 units PRBC (no clotting factors in PRBC) - Surgery following, appreciate recs - Monitor for signs of perforation - Continue PPI gtt - NPO - Ceftriaxone discontinued by ID, on Cefepime - recommended as prophylaxis for 5 days - Lactulose discontinued - avoid hypovolemic state - Autoimmune liver work up unremarkable Pt discussed with Dr. Larsen; please see attestation for further recs/changes Trav Mosley; PGY-4 <Cyril Larsen V - Last Filed: 09/03/18 23:02> Objective - Vital Signs/Intake and Output Vital Signs (last 24 hours): Temp Pulse Resp BP Pulse Ox 97.2 F L 84 12 143/78 100 09/03/18 16:00 09/03/18 19:00 09/03/18 15:02 09/03/18 19:00 09/03/18 10:44 Intake and Output: 09/03/18 09/04/18 18:59 06:59 Intake Total 1181 Output Total 7000 Balance -5819 - Medications Medications: Current Medications Albumin Human (Albumin Human 25% (12.5 Gm/50 Ml)) 12.5 gm IV Q4H [facility] Last Admin: 09/03/18 21:07 Dose: 12.5 gm Albuterol/Ipratropium (Duoneb 3 Mg/0.5 Mg (3 Ml) Ud) 3 ml IH [id number] [facility] Last Admin: 09/03/18 20:00 Dose: 3 ml Albuterol/Ipratropium (Duoneb 3 Mg/0.5 Mg (3 Ml) Ud) 3 ml IH Q2H PRN PRN Reason: Shortness of Breath Last Admin: 08/25/18 23:35 Dose: 3 ml Atorvastatin Calcium (Lipitor) 80 mg PO DIN [facility] Last Admin: 09/03/18 19:20 Dose: Not Given Carvedilol (Coreg) 12.5 mg PO BID [facility] Last Admin: 08/30/18 11:14 Dose: 12.5 mg Docusate Sodium (Colace) 100 mg PO BID [facility] Last Admin: 09/03/18 19:17 Dose: Not Given Doxycycline Hyclate (Doryx) 100 mg PO Q12 [facility]; Protocol Stop: 09/06/18 10:01 Last Admin: 09/03/18 21:09 Dose: 100 mg Furosemide (Lasix) 40 mg IVP DAILY [facility] Last Admin: 09/03/18 12:16 Dose: 40 mg Furosemide (Lasix) 20 mg PO ONCE ONE Stop: 09/04/18 12:07 Glipizide (Glucotrol) 5 mg PO ACB [facility] Last Admin: 08/31/18 07:45 Dose: Not Given Pantoprazole Sodium (Protonix 40mg Ivpb) 40 mg in 100 mls @ 20 mls/hr IVPB .Q5H [facility] Last Admin: 09/03/18 21:07 Dose: 20 mls/hr Cefepime HCl (Maxipime 1gm) 1 gm in 100 mls @ 100 mls/hr IVPB Q8 [facility]; Protocol Stop: 09/10/18 14:01 Last Admin: 09/03/18 21:08 Dose: 100 mls/hr Insulin Human Lispro (Humalog High) 0 units SC Q6 [facility]; Protocol Lactulose (Enulose) 20 gm PO TID [facility] Last Admin: 09/01/18 17:03 Dose: 20 gm Losartan Potassium (Cozaar) 25 mg PO DAILY [facility] Last Admin: 08/30/18 11:14 Dose: 25 mg Rifaximin (Xifaxan) 550 mg PO BID [facility]; Protocol Last Admin: 09/03/18 21:27 Dose: 550 mg - Labs Labs: 09/03/18 21:00 09/03/18 21:00 PT 15.5 SECONDS (9.4-12.5) H 09/03/18 08:30 INR 1.34 09/03/18 08:30 APTT 29.6 Seconds (25.1-36.5) 09/03/18 08:30 Attending/Attestation - Attestation I have personally seen and examined this patient.: Yes I have fully participated in the care of the patient.: Yes I have reviewed all pertinent clinical information, including history, physical exam and plan: Yes Notes (Text): This is an addendum to GI progress report dictated by the GI Fellow. The patient was seen and examined earlier. Medical records, lab studies, imagings were reviewed. Last 24 hours events reviewed. Agreed with the above treatment plan as outlined in GI Fellow 's notes with the addition of the following 09/03/18 23:02
--- NOTE | 2018-09-03 11:45 | CP.PCM.PN ---
<Elie Herr - Last Filed: 09/03/18 11:36> Subjective - Date & Time of Evaluation Date of Evaluation: 09/03/18 Time of Evaluation: 07:45 - Subjective Subjective: Elie Herr PGY-1 Progress Note for Hospitalist Service Patient seen and evaluated at bedside. No acute events reported overnight. Reports episode of melena overnight, and recently had bedding changed with dark stool. Denies chest pain, palpitations, increased shortness of breath, headaches, dizziness, blurry vision abdominal pain, hemoptysis. Objective - Vital Signs/Intake and Output Vital Signs (last 24 hours): Temp Pulse Resp BP Pulse Ox 98.6 F 88 17 135/80 100 09/03/18 11:30 09/03/18 11:30 09/03/18 11:30 09/03/18 11:30 09/03/18 10:44 Intake and Output: 09/03/18 09/03/18 06:59 18:59 Intake Total 325 0 Balance 325 0 - Medications Medications: Current Medications Albumin Human (Albumin Human 25% (12.5 Gm/50 Ml)) 12.5 gm IV Q4H [facility] Last Admin: 09/03/18 08:44 Dose: 12.5 gm Albuterol/Ipratropium (Duoneb 3 Mg/0.5 Mg (3 Ml) Ud) 3 ml IH [id number] [facility] Last Admin: 09/03/18 08:14 Dose: 3 ml Albuterol/Ipratropium (Duoneb 3 Mg/0.5 Mg (3 Ml) Ud) 3 ml IH Q2H PRN PRN Reason: Shortness of Breath Last Admin: 08/25/18 23:35 Dose: 3 ml Atorvastatin Calcium (Lipitor) 80 mg PO DIN [facility] Last Admin: 09/02/18 16:29 Dose: Not Given Carvedilol (Coreg) 12.5 mg PO BID [facility] Last Admin: 08/30/18 11:14 Dose: 12.5 mg Docusate Sodium (Colace) 100 mg PO BID [facility] Last Admin: 09/02/18 17:29 Dose: Not Given Doxycycline Hyclate (Doryx) 100 mg PO Q12 [facility]; Protocol Stop: 09/06/18 10:01 Last Admin: 09/03/18 08:50 Dose: 100 mg Furosemide (Lasix) 40 mg IVP DAILY [facility] Last Admin: 09/02/18 09:25 Dose: 40 mg Glipizide (Glucotrol) 5 mg PO ACB [facility] Last Admin: 08/31/18 07:45 Dose: Not Given Pantoprazole Sodium (Protonix 40mg Ivpb) 40 mg in 100 mls @ 20 mls/hr IVPB .Q5H [facility] Last Admin: 09/03/18 00:00 Dose: 20 mls/hr Cefepime HCl (Maxipime 1gm) 1 gm in 100 mls @ 100 mls/hr IVPB Q8 [facility]; Protocol Stop: 09/10/18 14:01 Last Admin: 09/03/18 08:43 Dose: 100 mls/hr Insulin Human Lispro (Humalog High) 0 units SC Q4 [facility]; Protocol Last Admin: 09/03/18 04:30 Dose: Not Given Lactulose (Enulose) 20 gm PO TID [facility] Last Admin: 09/01/18 17:03 Dose: 20 gm Losartan Potassium (Cozaar) 25 mg PO DAILY [facility] Last Admin: 08/30/18 11:14 Dose: 25 mg Rifaximin (Xifaxan) 550 mg PO BID [facility]; Protocol Last Admin: 09/03/18 08:50 Dose: 550 mg - Labs Labs: 09/03/18 05:00 09/03/18 05:00 PT 15.5 SECONDS (9.4-12.5) H 09/03/18 08:30 INR 1.34 09/03/18 08:30 APTT 29.6 Seconds (25.1-36.5) 09/03/18 08:30 - Additional Findings Additional findings: - Constitutional Appears: Fair, Non-toxic, No Acute Distress - Head Exam Head Exam: ATRAUMATIC, NORMAL INSPECTION, NORMOCEPHALIC - Eye Exam Eye Exam: EOMI Pupil Exam: PERRL - Respiratory Exam Respiratory Exam: Rhonchi bilaterally, NORMAL BREATHING PATTERN, on BiPAP at this time - Cardiovascular Exam Cardiovascular Exam: REGULAR RHYTHM, +S1+S2 - GI/Abdominal Exam GI & Abdominal Exam: Soft, Normal Bowel Sounds, morbidly obese, nontender nondistended - Extremities Exam Extremities Exam: Full ROM. Chronic vascular epidermal changes to both LEs below knee - Neurological Exam Neurological Exam: Alert, Awake, CN II-XII Intact, Oriented x3 Assessment and Plan - Assessment and Plan (Free Text) Assessment: 53 year old male with past medical history of COPD, diabetes mellitus type II, HTN, HLD, systolic CHF with EF of 39%, CAD with stent, lumbar radiculopathy, gout, and HIV presents with shortness of breath on admission after falling at home. Initial CXR showed cardiomegaly with resolved pulmonary congestion. Echocardiogram from 05/07 showed mild concentric LVH, systolic function moderately impaired, septal hypokinesis, mild MR, moderate TR, mild pulmonary HTN, and aortic root mildly enlarged. Patient with persistent anemia and melena . Currently being transfused PRBC. Plan: Severe anemia likely 2/2 UGI bleed vs varices vs ulcer - Hgb 6.9 this AM, s/p 12 units of PRBC overall, s/p 5 units PRBC and 2 FFP 09/02. CBC q6. 1 unit PRBC currently transfusing, after which Lasix 20 mg PO to be given. 1 additional unit PRBC ordered. - Melena reported - PT/INR 15.5/1.34 - f/u Haptoglobin, peripheral smear, direct jade - Relative thrombocytopenia to 78 compared to baseline, will continue to monitor - Abdominal U/S showed patent portal vein, trace ascites. Limited study. Bleeding scan 09/02 showed GI hemmorhage in likely in stomach with migration through duodenum and prox small bowel. - ICU consult placed - Dr. Eduardo - demetria appreciated - GI consult - Dr. Larsen - demetria appreciated. Repeat EGD 09/02 showed clotted blood in gastric fundus and body as well as oozing hemmorhagic duodenal ulcerm where a hemostatic clip was placed. PTX drip. - Initial EGD showed esophageal, duodenal and gastric ulcers, with coffee-ground emesis vs blood found in antrum. Moderate portal HTN gastropathy. - Gen Surg consulted - Dr. Vizcarra- for ? UGI bleed- no indication for surgical intervention at this time, may recommend IR consult for angiogram if patient deteriorates or continues to have significant bleeding Hypotension- resolved - [id number] today. Periods of hypotension last week, lowest at 83/50. - Albumin q4 - continue to monitor Shortness of Breath likely 2/2 to CHF exacerbation -CXR consistent with cardiomegaly, patient has noncompliance with BiPAP -BNP 13676 -Echocardiogram shows mild systolic congestive heart failure with EF of 39% from 04/2018 -For suspected CHF, patient should continue with coreg 12.5 mg BID per cardio. Clinically, patient does not have significant lower extremity edema. Patient was ordered Bipap for CHF as well. Coreg and Cozaar currently on hold. -Cardio consult- Dr. Salgado - Lasix changed to 40 mg IVP daily, FOBT positive, Lactulose currently on hold - f/u sputum culture - Cefepime and Doxycycline day 2 for 4-7 days per ID Leukocytosis likely 2/2 acute infection- improving -WBC: 8.1 - repeat CXR 09/03 shows mild pulm congestion, L basilar atelectasis,/infiltrate vs pleural effusion, Cardiomegaly. - repeat CXR shows bilateral vascular congestion - Repeat Procal 0.24 - Doxy and Cefepime - f/u repeat blood cultures, f/u sputum cx - continue to monitor Severe Agitation 2/2 Hepatic encephalopathy vs schizophrenia vs. alcohol withdrawal -Abdominal ultrasound suggests hepatocellular disease or cirrhosis. Trace ascites. - On Rifaximin 550 mg BID. Lactulose 20 gm TID on hold - Ammonia 49 initially, 66 on 08/31 -Psychiatry consult for other possible causes of agitation such as schizophrenia placed- no psych indication for continued follow up, and delirium may take few weeks to resolve CAD with stent -EKG: Atrial fibrillation, right bundle branch block, HR of 88 -Troponinx3: 0.06, 0.06, 0.05. Unlikely NE. Elevation likely due to CORAZON -Cardiac catheterization in 12/2017 showed LAD lesion 80% -Continue with aspirin, antiHTN meds held -TSH: 2.41, LDL: 75 -ICU monitoring -History of use of life vest CORAZON Cr at baseline -BUN/Cr ratio more than 20:1 so likely prerenal cause, dehydration from repeated administration of lasix for suspected CHF Diabetes mellitus type II -Accuchecks -HgbA1c: 6.9 -Hypoglycemia protocol -CLD -Lispro high, Glipizide held Obstructive Sleep Apnea -Continue with CPAP/BiPap at night Hypertension - coreg, cozaar held in light of recent hypotension. Will resume if consistently hypertensive Constipation -Continue with colace Hyperlipidemia -Lipid panel unremarkable -Continue with lipitor History of HIV -HIV antibody reactive with 3.33 on PCR - CD4 count 361 - MRSA nose negative - f/u sputum culture GI prophylaxis: Protonix drip in light of GI bleed, for 72 hours per GI DVT prophylaxis: heparin 5000 U Q8 held in light of anemia Dispo: clear liquid diet. Awaiting PT recs. Patient would like to return home after hospitalization. Patient seen, case reviewed and plan approved by Dr. Danielle. Elie Herr, PGY-1 <Sonu Danielle - Last Filed: 09/04/18 13:53> Objective - Vital Signs/Intake and Output Vital Signs (last 24 hours): Temp Pulse Resp BP Pulse Ox 99.1 F 86 13 139/77 97 09/04/18 12:00 09/04/18 10:00 09/03/18 22:00 09/04/18 11:54 09/03/18 22:00 - Medications Medications: Current Medications Albumin Human (Albumin Human 25% (12.5 Gm/50 Ml)) 12.5 gm IV Q4H [facility] Last Admin: 09/04/18 11:45 Dose: 12.5 gm Albuterol/Ipratropium (Duoneb 3 Mg/0.5 Mg (3 Ml) Ud) 3 ml IH [id number] [facility] Last Admin: 09/04/18 13:44 Dose: 3 ml Albuterol/Ipratropium (Duoneb 3 Mg/0.5 Mg (3 Ml) Ud) 3 ml IH Q2H PRN PRN Reason: Shortness of Breath Last Admin: 08/25/18 23:35 Dose: 3 ml Atorvastatin Calcium (Lipitor) 80 mg PO DIN [facility] Last Admin: 09/03/18 19:20 Dose: Not Given Carvedilol (Coreg) 12.5 mg PO BID [facility] Last Admin: 08/30/18 11:14 Dose: 12.5 mg Docusate Sodium (Colace) 100 mg PO BID [facility] Last Admin: 09/04/18 11:37 Dose: Not Given Doxycycline Hyclate (Doryx) 100 mg PO Q12 [facility]; Protocol Stop: 09/06/18 10:01 Last Admin: 09/04/18 09:23 Dose: 100 mg Furosemide (Lasix) 40 mg PO DAILY [facility] Glipizide (Glucotrol) 5 mg PO ACB [facility] Last Admin: 08/31/18 07:45 Dose: Not Given Cefepime HCl (Maxipime 1gm) 1 gm in 100 mls @ 100 mls/hr IVPB Q8 [facility]; Protocol Stop: 09/10/18 14:01 Last Admin: 09/04/18 06:25 Dose: 100 mls/hr Insulin Human Lispro (Humalog High) 0 units SC Q6 [facility]; Protocol Last Admin: 09/04/18 11:50 Dose: Not Given Lactulose (Enulose) 20 gm PO TID [facility] Last Admin: 09/01/18 17:03 Dose: 20 gm Losartan Potassium (Cozaar) 25 mg PO DAILY [facility] Last Admin: 08/30/18 11:14 Dose: 25 mg Pantoprazole Sodium (Protonix Inj) 40 mg IVP Q12 [facility] Rifaximin (Xifaxan) 550 mg PO BID [facility]; Protocol Last Admin: 09/04/18 09:23 Dose: 550 mg - Labs Labs: 09/04/18 12:30 09/04/18 12:30 PT 15.5 SECONDS (9.4-12.5) H 09/03/18 08:30 INR 1.34 09/03/18 08:30 APTT 29.6 Seconds (25.1-36.5) 09/03/18 08:30 Attending/Attestation - Attestation I have personally seen and examined this patient.: Yes I have fully participated in the care of the patient.: Yes I have reviewed all pertinent clinical information, including history, physical exam and plan: Yes Notes (Text): 09/04/18 13:46 Patient was seen and examined with medical planner. Agreed with assessment and plan. 53yo male with PMHx significant for HIV not on HAART, COPD, systolic CHF with biventricular failure, CAD s/p PCI, DM, HTN, hyperlipidemia and non compliance who presented to the hospital 5 days ago with shortness of breath.Patient had Acute blood loss anemia 2/2 severe PUD, required multiple PRBC transfusion, Repeat EGD on 09/02 with actively bleeding vessel Duodenal (FC1b) Ulcer SP epi injs and clip with hemostasis Patient is on PPI infusion, repeat hemoglobin today 6.9, we will transfuse one unit of PRBC and FFP . We will also give IV lasix after each unit to avoid fluid overload . GI and surgery is following. Management plan was discussed in detail with patient. Education was provided. 09/04/18 13:50
--- NOTE | 2018-09-03 12:24 | CP.PCM.PN ---
Subjective - Date & Time of Evaluation Date of Evaluation: 09/03/18 Time of Evaluation: 08:10 - Subjective Subjective: Patient seen and examined, reports melena. Denies CP, SOB, abd pain. Receiving PRBC transfusion. Objective - Vital Signs/Intake and Output Vital Signs (last 24 hours): Temp Pulse Resp BP Pulse Ox 98.6 F 88 17 135/80 100 09/03/18 11:30 09/03/18 11:30 09/03/18 11:30 09/03/18 11:30 09/03/18 10:44 Intake and Output: 09/03/18 09/03/18 06:59 18:59 Intake Total 325 0 Balance 325 0 - Medications Medications: Current Medications Albumin Human (Albumin Human 25% (12.5 Gm/50 Ml)) 12.5 gm IV Q4H COUNTS [facility]CLUDE 234 BEDS AT [facility] Last Admin: 09/03/18 08:44 Dose: 12.5 gm Albuterol/Ipratropium (Duoneb 3 Mg/0.5 Mg (3 Ml) Ud) 3 ml IH [id number] COUNTS INCLUDE 234 BEDS AT [facility] Last Admin: 09/03/18 08:14 Dose: 3 ml Albuterol/Ipratropium (Duoneb 3 Mg/0.5 Mg (3 Ml) Ud) 3 ml IH Q2H PRN PRN Reason: Shortness of Breath Last Admin: 08/25/18 23:35 Dose: 3 ml Atorvastatin Calcium (Lipitor) 80 mg PO DIN [facility]S [facility]CLUDE 234 BEDS AT [facility] Last Admin: 09/02/18 16:29 Dose: Not Given Carvedilol (Coreg) 12.5 mg PO BID [facility]S [facility]CLUDE 234 BEDS AT [facility] Last Admin: 08/30/18 11:14 Dose: 12.5 mg Docusate Sodium (Colace) 100 mg PO BID COUNTS [facility]CLUDE 234 BEDS AT [facility] Last Admin: 09/02/18 17:29 Dose: Not Given Doxycycline Hyclate (Doryx) 100 mg PO Q12 [facility]S [facility] 234 BEDS AT [facility]; Protocol Stop: 09/06/18 10:01 Last Admin: 09/03/18 08:50 Dose: 100 mg Furosemide (Lasix) 40 mg IVP DAILY [facility] 234 BEDS AT [facility] Last Admin: 09/02/18 09:25 Dose: 40 mg Furosemide (Lasix) 20 mg PO ONCE ONE Stop: 09/04/18 12:07 Glipizide (Glucotrol) 5 mg PO ACB [facility]S [facility]CLUDE 234 BEDS AT [facility] Last Admin: 08/31/18 07:45 Dose: Not Given Pantoprazole Sodium (Protonix 40mg Ivpb) 40 mg in 100 mls @ 20 mls/hr IVPB .Q5H [facility] Last Admin: 09/03/18 00:00 Dose: 20 mls/hr Cefepime HCl (Maxipime 1gm) 1 gm in 100 mls @ 100 mls/hr IVPB Q8 [facility]; Protocol Stop: 09/10/18 14:01 Last Admin: 09/03/18 08:43 Dose: 100 mls/hr Insulin Human Lispro (Humalog High) 0 units SC Q4 [facility]; Protocol Last Admin: 09/03/18 04:30 Dose: Not Given Lactulose (Enulose) 20 gm PO TID [facility] Last Admin: 09/01/18 17:03 Dose: 20 gm Losartan Potassium (Cozaar) 25 mg PO DAILY [facility]S [facility] 234 BEDS AT [facility] Last Admin: 08/30/18 11:14 Dose: 25 mg Rifaximin (Xifaxan) 550 mg PO BID [facility]; Protocol Last Admin: 09/03/18 08:50 Dose: 550 mg - Labs Labs: 09/03/18 05:00 09/03/18 05:00 PT 15.5 SECONDS (9.4-12.5) H 09/03/18 08:30 INR 1.34 09/03/18 08:30 APTT 29.6 Seconds (25.1-36.5) 09/03/18 08:30 - Constitutional Appears: Non-toxic, No Acute Distress - Head Exam Head Exam: NORMAL INSPECTION - Eye Exam Eye Exam: Normal appearance - ENT Exam ENT Exam: Mucous Membranes Dry - Neck Exam Neck Exam: Full ROM - Respiratory Exam Respiratory Exam: Clear to Ausculation Bilateral, NORMAL BREATHING PATTERN - Cardiovascular Exam Cardiovascular Exam: REGULAR RHYTHM, +S1, +S2 - GI/Abdominal Exam GI & Abdominal Exam: Soft, Normal Bowel Sounds - Extremities Exam Extremities Exam: Normal Inspection - Back Exam Back Exam: NORMAL INSPECTION - Neurological Exam Neurological Exam: Alert, Awake, Oriented x3 Assessment and Plan - Assessment and Plan (Free Text) Assessment: 53 M with PMHx HIV CD4 361 (not on HAART), COPD, CHF-rEF (ECHO on 05/10 showing EF 39% with septal hypokinesis), Biventricular HF, CAD s/p PCI, DM, HTN, HLD, found to be grually severely anemia s/p EGD found to have multiple non-bleeding esophageal, gastric, and duodenal ulcers, with subsequent drop in HH, yesterday had repeat EGD, found to have bleeding duodenal ulcer s/p epi injection and clip - currretly afebrile, BP stable, HR 80s, in NAD - receiving 1u PRBC, 1u Platelets ordered - surgery GI following GIB Duodenal Ulcer HIV CHFCAD DM HTN HLD Recommend: - supp o2 as needed, duoensb PRN - Abx as per ID - Hold BP meds - Follow up ID - NPO - PPI drip - Rifaximin, Lactulose - maintain 2 large bore PIVs - q6hr CBC monitoring - if HH does not improve, or has HD compromise, may need IR embolization - GI ppx - DVT ppx, SCDs - Monitor in MICU Critical care time 35 minutes
[2018-09-03 15:53] LABS: HEMOGLOBIN 8.1 g/dL (14.0-18.0); MEAN CELL VOLUME 87.1 fl (80.0-105.0); MEAN CORPUSCULAR HEMOGLOBIN 28.9 pg (25.0-35.0); MEAN CORPUSCULAR HGB CONC 33.2 g/dl (31.0-37.0); RBC 2.8 10^6/uL (3.5-6.1); WHITE BLOOD COUNT 10.2 10^3/uL (4.5-11.0)
--- NOTE | 2018-09-03 19:18 | PN ---
DATE: 09/03/2018 SUBJECTIVE: The patient denies chest pain. He is experiencing melenic stool and currently receiving 1 unit of packed RBC transfusion. PHYSICAL EXAMINATION VITAL SIGNS: Blood pressure 144/81, heart rate 88, temperature 98.6, respirations 17. HEENT: Pale conjunctivae. CHEST: Absent breath sounds over the bases. HEART: S1 and S2, regular. ABDOMEN: Soft. EXTREMITIES: 2+ pitting edema. LABORATORY DATA: Today's hemoglobin and hematocrit are 6.9 and 21, white count 8.1, platelet count 78,000. Today's SMA-7: Sodium 149, potassium 3.7, chloride 106, CO2 of more than 40, glucose 115, BUN 43, creatinine 1. Blood cultures are negative after 48 hours and 5 days. Today's chest x-ray: Mild pulmonary vascular congestion, left basilar atelectasis and/or pleural effusion, cardiomegaly and the removal of an endotracheal tube. ASSESSMENT: 1. Upper gastrointestinal bleeding, most likely from a duodenal ulcer. 2. Biventricular failure. 3. Thrombocytopenia. 4. Human immunodeficiency virus positive. RECOMMENDATIONS: Continue Lasix 20 mg p.o. once a day, IV Maxipime 1 g every 8 hours, Protonix 40 mg IV piggyback every 5 hours, albumin infusion every 4 hours. I discussed with the medical team. Interventional radiology may be considered for embolization therapy. Beny Salgado MD
--- NOTE | 2018-09-03 20:01 | CP.PCM.PN ---
Subjective - Date & Time of Evaluation Date of Evaluation: 09/03/18 Time of Evaluation: 08:40 - Subjective Subjective: Still having melanotic stools, no fevers, not in distress. Objective - Vital Signs/Intake and Output Vital Signs (last 24 hours): Temp Pulse Resp BP Pulse Ox 97.7 F 84 13 156/80 H 96 09/02/18 11:32 09/02/18 11:00 09/02/18 11:00 09/02/18 11:00 09/02/18 11:00 Intake and Output: 09/02/18 09/02/18 06:59 18:59 Intake Total 1140 Output Total 3400 Balance -2260 - Medications Medications: Current Medications Albumin Human (Albumin Human 25% (12.5 Gm/50 Ml)) 12.5 gm IV Q4H [facility] Last Admin: 09/02/18 11:23 Dose: 12.5 gm Albuterol/Ipratropium (Duoneb 3 Mg/0.5 Mg (3 Ml) Ud) 3 ml IH [id number] [facility] Last Admin: 09/02/18 07:17 Dose: 3 ml Albuterol/Ipratropium (Duoneb 3 Mg/0.5 Mg (3 Ml) Ud) 3 ml IH Q2H PRN PRN Reason: Shortness of Breath Last Admin: 08/25/18 23:35 Dose: 3 ml Atorvastatin Calcium (Lipitor) 80 mg PO DIN [facility] Last Admin: 09/01/18 16:54 Dose: 80 mg Carvedilol (Coreg) 12.5 mg PO BID [facility] Last Admin: 08/30/18 11:14 Dose: 12.5 mg Docusate Sodium (Colace) 100 mg PO BID [facility] Last Admin: 09/02/18 09:38 Dose: Not Given Doxycycline Hyclate (Doryx) 100 mg PO Q12 [facility]; Protocol Stop: 09/06/18 10:01 Last Admin: 09/02/18 09:38 Dose: Not Given Furosemide (Lasix) 40 mg IVP DAILY [facility] Last Admin: 09/02/18 09:25 Dose: 40 mg Glipizide (Glucotrol) 5 mg PO ACB [facility] Last Admin: 08/31/18 07:45 Dose: Not Given Pantoprazole Sodium (Protonix 40mg Ivpb) 40 mg in 100 mls @ 20 mls/hr IVPB .Q5H [facility] Last Admin: 09/02/18 09:25 Dose: 20 mls/hr Cefepime HCl (Maxipime 1gm) 1 gm in 100 mls @ 100 mls/hr IVPB Q8 [facility]; Protocol Stop: 09/10/18 14:01 Last Admin: 09/02/18 04:32 Dose: 100 mls/hr Potassium Chloride (Potassium Chloride 10 Meq/100 Ml) 10 meq in 100 mls @ 50 mls/hr IVPB Q2H [facility] Stop: 09/02/18 13:59 Last Admin: 09/02/18 11:10 Dose: 50 mls/hr Potassium Phosphate 15 mmole/ (Sodium Chloride) 255 mls @ 42.5 mls/hr IVPB ONCE ONE Stop: 09/02/18 14:14 Last Admin: 09/02/18 09:25 Dose: 42.5 mls/hr Insulin Human Lispro (Humalog High) 0 units SC Q4 [facility]; Protocol Last Admin: 09/02/18 11:24 Dose: Not Given Lactulose (Enulose) 20 gm PO TID [facility] Last Admin: 09/01/18 17:03 Dose: 20 gm Losartan Potassium (Cozaar) 25 mg PO DAILY [facility] Last Admin: 08/30/18 11:14 Dose: 25 mg Rifaximin (Xifaxan) 550 mg PO BID [facility]; Protocol Last Admin: 09/02/18 09:40 Dose: Not Given - Labs Labs: 09/02/18 05:00 09/02/18 05:00 PT 15.1 SECONDS (9.4-12.5) H 09/02/18 05:00 INR 1.31 09/02/18 05:00 APTT 28.4 Seconds (25.1-36.5) 08/31/18 17:50 - Constitutional Appears: Chronically Ill - Head Exam Head Exam: NORMAL INSPECTION - Respiratory Exam Respiratory Exam: Decreased Breath Sounds - Cardiovascular Exam Cardiovascular Exam: +S1, +S2 - GI/Abdominal Exam GI & Abdominal Exam: Soft. absent: Tenderness Assessment and Plan - Assessment and Plan (Free Text) Plan: Assessment SIRS due to acute on chronic systolic heart failure, R/O left sided HCAP chronic anemia with drop in hemoglobin, due to GI bleeding positive HIV PCR and positive 4th generation antibody test, acute versus chronic HIV infection S/P sepsis due to right lower lobe HCAP, S/P treatment with antibiotics obesity with BMI 35 COPD Plan T-cell count is above 200 - patient will need to be arranged to see an HIV specialist on discharge for further management of HIV ICU managing anemia and respiratory distress - continue Cefepime and Doxycycline day 3 for 4-7 days will continue to monitor clinically follow up further plans of GI regarding GI bleeding overall prognosis is poor
[2018-09-03 21:12] LABS: HEMOGLOBIN 8.2 g/dL (14.0-18.0); MEAN CELL VOLUME 87.5 fl (80.0-105.0); MEAN CORPUSCULAR HEMOGLOBIN 28.4 pg (25.0-35.0); MEAN CORPUSCULAR HGB CONC 32.4 g/dl (31.0-37.0); RBC 2.89 10^6/uL (3.5-6.1); RED CELL DISTRIBUTION WIDTH 17.2 % (11.5-14.5); WHITE BLOOD COUNT 9.3 10^3/uL (4.5-11.0)
[2018-09-03 21:32] LABS: BLOOD UREA NITROGEN 42 mg/dL (7-21); CALCIUM 8.8 mg/dL (8.4-10.5); GFR NON-AFRICAN AMERICAN > 60
[2018-09-04] MEDS: Albuterol-Ipratrop 3 mg / 0.5 (3 ml) UD IH SCH ×4 (01:59→20:20)
[2018-09-04] MEDS: Pantoprazole 40mg/100mL NS 40 MG/100 ML BAG IVPB SCH ×2 (03:12→08:30)
[2018-09-04] MEDS: Albumin Human 25% (12.5 gm/50 ml) IV SCH ×6 (04:28→23:12)
[2018-09-04] MEDS: Insulin Lispro (HUMAlog) HIGH Coverage SC SCH ×3 (06:25→17:26)
[2018-09-04] MEDS: Cefepime 1gm in NS 100ml 1 GM/100 ML BAG IVPB SCH ×3 (06:25→21:15)
--- NOTE | 2018-09-04 09:21 | CP.PCM.PN ---
Subjective - Date & Time of Evaluation Date of Evaluation: 09/04/18 Time of Evaluation: 09:17 - Subjective Subjective: Surgery Progress note- Dr. Vizcarra Patient seen and examined at bedside. no acute events overnight. was transfused 2u, Hgb responded appropriately. last 2 hgb stable at 8.2. Denies chest pain, dizziness heart palpitations. No bloody BM overnight. making appropriate urine Objective - Vital Signs/Intake and Output Vital Signs (last 24 hours): Temp Pulse Resp BP Pulse Ox 98.4 F 87 13 141/81 97 09/03/18 20:00 09/03/18 22:00 09/03/18 22:00 09/03/18 22:00 09/03/18 22:00 - Medications Medications: Current Medications Albumin Human (Albumin Human 25% (12.5 Gm/50 Ml)) 12.5 gm IV Q4H [facility] Last Admin: 09/04/18 04:28 Dose: 12.5 gm Albuterol/Ipratropium (Duoneb 3 Mg/0.5 Mg (3 Ml) Ud) 3 ml IH [id number] [facility] Last Admin: 09/04/18 07:56 Dose: 3 ml Albuterol/Ipratropium (Duoneb 3 Mg/0.5 Mg (3 Ml) Ud) 3 ml IH Q2H PRN PRN Reason: Shortness of Breath Last Admin: 08/25/18 23:35 Dose: 3 ml Atorvastatin Calcium (Lipitor) 80 mg PO DIN [facility] Last Admin: 09/03/18 19:20 Dose: Not Given Carvedilol (Coreg) 12.5 mg PO BID [facility] Last Admin: 08/30/18 11:14 Dose: 12.5 mg Docusate Sodium (Colace) 100 mg PO BID [facility] Last Admin: 09/03/18 19:17 Dose: Not Given Doxycycline Hyclate (Doryx) 100 mg PO Q12 [facility]; Protocol Stop: 09/06/18 10:01 Last Admin: 09/03/18 21:09 Dose: 100 mg Furosemide (Lasix) 40 mg IVP DAILY [facility] Last Admin: 09/03/18 12:16 Dose: 40 mg Furosemide (Lasix) 20 mg PO ONCE ONE Stop: 09/04/18 12:07 Glipizide (Glucotrol) 5 mg PO ACB [facility] Last Admin: 08/31/18 07:45 Dose: Not Given Pantoprazole Sodium (Protonix 40mg Ivpb) 40 mg in 100 mls @ 20 mls/hr IVPB .Q5H [facility] Last Admin: 09/04/18 03:12 Dose: 20 mls/hr Cefepime HCl (Maxipime 1gm) 1 gm in 100 mls @ 100 mls/hr IVPB Q8 [facility]; Protocol Stop: 09/10/18 14:01 Last Admin: 09/04/18 06:25 Dose: 100 mls/hr Insulin Human Lispro (Humalog High) 0 units SC Q6 [facility]; Protocol Last Admin: 09/04/18 06:25 Dose: Not Given Lactulose (Enulose) 20 gm PO TID [facility] Last Admin: 09/01/18 17:03 Dose: 20 gm Losartan Potassium (Cozaar) 25 mg PO DAILY [facility] Last Admin: 08/30/18 11:14 Dose: 25 mg Rifaximin (Xifaxan) 550 mg PO BID [facility]; Protocol Last Admin: 09/03/18 21:27 Dose: 550 mg - Labs Labs: 09/03/18 21:00 09/03/18 21:00 PT 15.5 SECONDS (9.4-12.5) H 09/03/18 08:30 INR 1.34 09/03/18 08:30 APTT 29.6 Seconds (25.1-36.5) 09/03/18 08:30 - Constitutional Appears: Non-toxic, No Acute Distress - Head Exam Head Exam: ATRAUMATIC - Eye Exam Eye Exam: EOMI. absent: Scleral icterus - ENT Exam ENT Exam: Mucous Membranes Moist - Respiratory Exam Respiratory Exam: NORMAL BREATHING PATTERN. absent: Accessory Muscle Use, Respiratory Distress - Cardiovascular Exam Cardiovascular Exam: +S1, +S2. absent: Bradycardia, Tachycardia - GI/Abdominal Exam GI & Abdominal Exam: Soft. absent: Distended, Firm, Guarding, Rigid, Tenderness - Neurological Exam Neurological Exam: Alert, Awake, Oriented x3 - Psychiatric Exam Psychiatric exam: Normal Affect - Skin Skin Exam: Intact, Warm Assessment and Plan - Assessment and Plan (Free Text) Assessment: 53M w/ UGIB, w/ multiple gastric and duodenal ulcers; s/p clipping and epi injection of actively bleeding duodenal ulcer Plan: - monitor H/H - transfuse PRN - diet per GI - GI ppx - will continue to follow - further recs per Dr. Zackery Tobar PGY2
--- NOTE | 2018-09-04 09:30 | CP.PCM.PN ---
<Trav Mosley - Last Filed: 09/04/18 10:18> Subjective - Date & Time of Evaluation Date of Evaluation: 09/04/18 Time of Evaluation: 09:15 - Subjective Subjective: PGY-4 GI Fellow Prog Note Pt lying in bed when seen this AM. States he is doing OK, w/o complaints. He reports one BM overnight that nursing states was black. Denied abd pain, N/V. 5 point ROS negative other than stated above Objective - Vital Signs/Intake and Output Vital Signs (last 24 hours): Temp Pulse Resp BP Pulse Ox 98.4 F 87 13 141/81 97 09/03/18 20:00 09/03/18 22:00 09/03/18 22:00 09/03/18 22:00 09/03/18 22:00 - Medications Medications: Current Medications Albumin Human (Albumin Human 25% (12.5 Gm/50 Ml)) 12.5 gm IV Q4H [facility] Last Admin: 09/04/18 04:28 Dose: 12.5 gm Albuterol/Ipratropium (Duoneb 3 Mg/0.5 Mg (3 Ml) Ud) 3 ml IH [id number] [facility] Last Admin: 09/04/18 07:56 Dose: 3 ml Albuterol/Ipratropium (Duoneb 3 Mg/0.5 Mg (3 Ml) Ud) 3 ml IH Q2H PRN PRN Reason: Shortness of Breath Last Admin: 08/25/18 23:35 Dose: 3 ml Atorvastatin Calcium (Lipitor) 80 mg PO DIN [facility] Last Admin: 09/03/18 19:20 Dose: Not Given Carvedilol (Coreg) 12.5 mg PO BID [facility] Last Admin: 08/30/18 11:14 Dose: 12.5 mg Docusate Sodium (Colace) 100 mg PO BID [facility] Last Admin: 09/03/18 19:17 Dose: Not Given Doxycycline Hyclate (Doryx) 100 mg PO Q12 [facility]; Protocol Stop: 09/06/18 10:01 Last Admin: 09/03/18 21:09 Dose: 100 mg Furosemide (Lasix) 40 mg IVP DAILY [facility] Last Admin: 09/03/18 12:16 Dose: 40 mg Furosemide (Lasix) 20 mg PO ONCE ONE Stop: 09/04/18 12:07 Glipizide (Glucotrol) 5 mg PO ACB [facility] Last Admin: 08/31/18 07:45 Dose: Not Given Pantoprazole Sodium (Protonix 40mg Ivpb) 40 mg in 100 mls @ 20 mls/hr IVPB .Q5H [facility] Last Admin: 09/04/18 03:12 Dose: 20 mls/hr Cefepime HCl (Maxipime 1gm) 1 gm in 100 mls @ 100 mls/hr IVPB Q8 [facility]; Protocol Stop: 09/10/18 14:01 Last Admin: 09/04/18 06:25 Dose: 100 mls/hr Insulin Human Lispro (Humalog High) 0 units SC Q6 [facility]; Protocol Last Admin: 09/04/18 06:25 Dose: Not Given Lactulose (Enulose) 20 gm PO TID [facility] Last Admin: 09/01/18 17:03 Dose: 20 gm Losartan Potassium (Cozaar) 25 mg PO DAILY [facility] Last Admin: 08/30/18 11:14 Dose: 25 mg Rifaximin (Xifaxan) 550 mg PO BID [facility]; Protocol Last Admin: 09/03/18 21:27 Dose: 550 mg - Labs Labs: 09/03/18 21:00 09/03/18 21:00 PT 15.5 SECONDS (9.4-12.5) H 09/03/18 08:30 INR 1.34 09/03/18 08:30 APTT 29.6 Seconds (25.1-36.5) 09/03/18 08:30 - Constitutional Appears: Well, No Acute Distress, Chronically Ill - Head Exam Head Exam: ATRAUMATIC, NORMAL INSPECTION - Eye Exam Eye Exam: EOMI. absent: Scleral icterus - ENT Exam ENT Exam: Mucous Membranes Dry. absent: Mucous Membranes Moist - GI/Abdominal Exam GI & Abdominal Exam: Soft, Normal Bowel Sounds. absent: Bruit, Distended, Firm, Guarding, Rigid, Tenderness, Mass, Organomegaly, Pulsatile Mass, Rebound Additional comments: Obese body habitus limiting exam Assessment and Plan - Assessment and Plan (Free Text) Assessment: 53yo male with PMHx significant for HIV not on HAART, COPD, systolic CHF with biventricular failure, CAD s/p PCI, DM, HTN, hyperlipidemia who presented to the hospital 5 days ago with shortness of breath -Acute blood loss anemia 2/2 severe PUD -Biventricular heart failure -COPD with acute exacerbation -Cirrhosis c/b hepatic encephalopathy -CAD -HIV Plan: - Repeat EGD on 09/02 with actively bleeding vessel Duodenal (FC1b) Ulcer s/p epi injs and clip with hemostasis - Hgb stable following transfusions on 09/03 --- If Hgb drops significantly/signs of repeat bleeding, will need IR consult for likely embolization - Transition from PPI gtt to IV q 12 injections - Recommend 1 unit FFP transfused/4 units PRBC (no clotting factors in PRBC) - Surgery following, appreciate recs - Monitor for signs of perforation - NPO except essential meds; plan for Clear Liq Diet tomorrow if continues to do well - Ceftriaxone DCed by ID, on Cefepime - recommended as prophylaxis for 5 days - Lactulose discontinued - avoid hypovolemic state - Autoimmune liver work up unremarkable Pt discussed with Dr. Larsen; please see attestation for further recs/changes Trav Mosley; PGY-4 <Cyril Larsen V - Last Filed: 09/04/18 19:16> Objective - Vital Signs/Intake and Output Vital Signs (last 24 hours): Temp Pulse Resp BP Pulse Ox 99.5 F 110 H 20 180/91 H 98 09/04/18 16:00 09/04/18 18:00 09/04/18 18:00 09/04/18 18:00 09/04/18 18:00 Intake and Output: 09/04/1818 18:59 06:59 Intake Total 1350 Output Total 5150 Balance -3800 - Medications Medications: Current Medications Albumin Human (Albumin Human 25% (12.5 Gm/50 Ml)) 12.5 gm IV Q4H [facility] Last Admin: 09/04/18 15:41 Dose: 12.5 gm Albuterol/Ipratropium (Duoneb 3 Mg/0.5 Mg (3 Ml) Ud) 3 ml IH [id number] [facility] Last Admin: 09/04/18 13:44 Dose: 3 ml Albuterol/Ipratropium (Duoneb 3 Mg/0.5 Mg (3 Ml) Ud) 3 ml IH Q2H PRN PRN Reason: Shortness of Breath Last Admin: 08/25/18 23:35 Dose: 3 ml Atorvastatin Calcium (Lipitor) 80 mg PO DIN [facility] Last Admin: 09/04/18 18:27 Dose: 80 mg Carvedilol (Coreg) 12.5 mg PO BID [facility] Last Admin: 08/30/18 11:14 Dose: 12.5 mg Docusate Sodium (Colace) 100 mg PO BID [facility] Last Admin: 09/04/18 17:25 Dose: Not Given Doxycycline Hyclate (Doryx) 100 mg PO Q12 [facility]; Protocol Stop: 09/06/18 10:01 Last Admin: 09/04/18 09:23 Dose: 100 mg Furosemide (Lasix) 40 mg PO DAILY [facility] Glipizide (Glucotrol) 5 mg PO ACB [facility] Last Admin: 08/31/18 07:45 Dose: Not Given Cefepime HCl (Maxipime 1gm) 1 gm in 100 mls @ 100 mls/hr IVPB Q8 [facility]; Protocol Stop: 09/10/18 14:01 Last Admin: 09/04/18 14:19 Dose: 100 mls/hr Insulin Human Lispro (Humalog High) 0 units SC Q6 [facility]; Protocol Last Admin: 09/04/18 17:26 Dose: Not Given Lactulose (Enulose) 20 gm PO TID [facility] Last Admin: 09/01/18 17:03 Dose: 20 gm Losartan Potassium (Cozaar) 25 mg PO DAILY [facility] Last Admin: 08/30/18 11:14 Dose: 25 mg Pantoprazole Sodium (Protonix Inj) 40 mg IVP Q12 [facility] Rifaximin (Xifaxan) 550 mg PO BID [facility]; Protocol Last Admin: 09/04/18 18:27 Dose: 550 mg - Labs Labs: 09/04/18 12:30 09/04/18 12:30 PT 15.5 SECONDS (9.4-12.5) H 09/03/18 08:30 INR 1.34 09/03/18 08:30 APTT 29.6 Seconds (25.1-36.5) 09/03/18 08:30 Attending/Attestation - Attestation I have personally seen and examined this patient.: Yes I have fully participated in the care of the patient.: Yes I have reviewed all pertinent clinical information, including history, physical exam and plan: Yes Notes (Text): This is an addendum to GI followup report dictated by the GI Fellow. The patient was seen and evaluated earlier. Medical records, lab studies, imagings were reviewed. Last 24 hours events reviewed. Agreed with the above treatment plan as outlined in GI Fellow's notes with the addition of the following Hemoglobin appears stable. One episode of melena, probably old blood. Follow-up CBC. Reduce Protonix to 40mg q12h. Clear liquids in the AM if hemoglobin remains stable. 09/04/18 19:14
--- NOTE | 2018-09-04 10:16 | CP.PCM.PN ---
Subjective - Date & Time of Evaluation Date of Evaluation: 09/04/18 Time of Evaluation: 08:20 - Subjective Subjective: No fevers, not in distress, breathing better, still with black stools. Objective - Vital Signs/Intake and Output Vital Signs (last 24 hours): Temp Pulse Resp BP Pulse Ox 98.4 F 101 H 12 145/85 100 09/03/18 15:02 09/03/18 15:02 09/03/18 15:02 09/03/18 15:02 09/03/18 10:44 Intake and Output: 09/03/18 09/04/18 18:59 06:59 Intake Total 951 Output Total 3000 Balance -2049 - Medications Medications: Current Medications Albumin Human (Albumin Human 25% (12.5 Gm/50 Ml)) 12.5 gm IV Q4H [facility] Last Admin: 09/03/18 14:53 Dose: 12.5 gm Albuterol/Ipratropium (Duoneb 3 Mg/0.5 Mg (3 Ml) Ud) 3 ml IH [id number] [facility] Last Admin: 09/03/18 13:27 Dose: 3 ml Albuterol/Ipratropium (Duoneb 3 Mg/0.5 Mg (3 Ml) Ud) 3 ml IH Q2H PRN PRN Reason: Shortness of Breath Last Admin: 08/25/18 23:35 Dose: 3 ml Atorvastatin Calcium (Lipitor) 80 mg PO DIN [facility] Last Admin: 09/03/18 19:20 Dose: Not Given Carvedilol (Coreg) 12.5 mg PO BID [facility] Last Admin: 08/30/18 11:14 Dose: 12.5 mg Docusate Sodium (Colace) 100 mg PO BID [facility] Last Admin: 09/03/18 19:17 Dose: Not Given Doxycycline Hyclate (Doryx) 100 mg PO Q12 [facility]; Protocol Stop: 09/06/18 10:01 Last Admin: 09/03/18 12:15 Dose: Not Given Furosemide (Lasix) 40 mg IVP DAILY [facility] Last Admin: 09/03/18 12:16 Dose: 40 mg Furosemide (Lasix) 20 mg PO ONCE ONE Stop: 09/04/18 12:07 Glipizide (Glucotrol) 5 mg PO ACB [facility] Last Admin: 08/31/18 07:45 Dose: Not Given Pantoprazole Sodium (Protonix 40mg Ivpb) 40 mg in 100 mls @ 20 mls/hr IVPB .Q5H [facility] Last Admin: 09/03/18 13:59 Dose: 20 mls/hr Cefepime HCl (Maxipime 1gm) 1 gm in 100 mls @ 100 mls/hr IVPB Q8 [facility]; Protocol Stop: 09/10/18 14:01 Last Admin: 09/03/18 14:55 Dose: 100 mls/hr Insulin Human Lispro (Humalog High) 0 units SC Q4 [facility]; Protocol Last Admin: 09/03/18 12:15 Dose: Not Given Lactulose (Enulose) 20 gm PO TID [facility] Last Admin: 09/01/18 17:03 Dose: 20 gm Losartan Potassium (Cozaar) 25 mg PO DAILY [facility] Last Admin: 08/30/18 11:14 Dose: 25 mg Rifaximin (Xifaxan) 550 mg PO BID [facility]; Protocol Last Admin: 09/03/18 12:18 Dose: Not Given - Labs Labs: 09/03/18 15:35 09/03/18 05:00 PT 15.5 SECONDS (9.4-12.5) H 09/03/18 08:30 INR 1.34 09/03/18 08:30 APTT 29.6 Seconds (25.1-36.5) 09/03/18 08:30 - Constitutional Appears: Chronically Ill - Head Exam Head Exam: NORMAL INSPECTION - Respiratory Exam Respiratory Exam: Decreased Breath Sounds - Cardiovascular Exam Cardiovascular Exam: +S1, +S2 - GI/Abdominal Exam GI & Abdominal Exam: Soft. absent: Tenderness Assessment and Plan - Assessment and Plan (Free Text) Plan: Assessment SIRS due to acute on chronic systolic heart failure, R/O left sided HCAP chronic anemia with drop in hemoglobin, due to GI bleeding positive HIV PCR and positive 4th generation antibody test, acute versus chronic HIV infection S/P sepsis due to right lower lobe HCAP, S/P treatment with antibiotics obesity with BMI 35 COPD Plan T-cell count is above 200 - patient will need to be arranged to see an HIV specialist on discharge for further management of HIV and to be started on ART as an outpatient ICU managing anemia and respiratory distress - continue Cefepime and Doxycycline day 4 for 4-7 days will continue to monitor clinically follow up further plans of GI regarding GI bleeding overall prognosis is poor
--- NOTE | 2018-09-04 11:13 | CP.CCUPN ---
<Lukasz Hayden - Last Filed: 09/04/18 11:13> CCU Subjective - Physician Review Subjective (Free Text): Lukasz Hayden, PGY1 ICU Progress Note for Dr. Eduardo Patient was seen and examined at bedside this morning. Patient is AAOx3. He denies cp, sob, abdominal pain, n/v/d. Most recent Hgb is 8.2. Vital signs are stable. No adverse overnight events. A full 12 point ROS was conducted and unremarkable except as stated above. CCU Objective - Vital Signs / Intake & Output Vital Signs (Last 4 hours): Vital Signs BP 09/04/18 09:23 159/85 H Intake and Output (Last 8hrs): Intake & Output 09/03/18 09/04/18 09/04/18 22:59 06:59 14:59 Intake Total 280 Output Total 4000 Balance -3720 Intake: IV 230 Right Forearm 150 protonix 80 Blood Product 0 Apheresis Plts Acda Lr 0 Irr 3rd Unit [id number] Other 50 Apheresis Plts Acda Lr 50 Irr 3rd Unit [id number] Output: Urine 4000 Urethral (Lugo) 4000 Other: # Bowel Movements 1 - Physical Exam Head: Positive for: Atraumatic, Normocephalic Pupils: Positive for: PERRL Extroacular Muscles: Positive for: EOMI Conjunctiva: Positive for: Normal Mouth: Positive for: Moist Mucous Membranes Neck: Positive for: Normal Range of Motion Respiratory/Chest: Positive for: Clear to Auscultation. Negative for: Good Air Exchange, Respiratory Distress, Accessory Muscle Use, Wheezes, Rales, Retracting, Rhonchi, Tachypneic Cardiovascular: Positive for: Regular Rate and Rhythm, Normal S1, S2. Negative for: Murmurs Abdomen: Positive for: Normal Bowel Sounds, Mass/Organomegaly (Hepatomegaly ). Negative for: Tenderness, Distention, Peritoneal Signs, Rebound, Guarding Genitourinary Male: Positive for: Other (Lugo in place. ) Back: Positive for: Normal Inspection Upper Extremity: Positive for: Normal Inspection. Negative for: Cyanosis, Edema Lower Extremity: Positive for: Other (B/L lower extremity stasis dermatitis/scaly dry skin noted). Negative for: Edema Neurological: Positive for: Speech Normal, Motor Func Grossly Intact Skin: Positive for: Warm, Dry, Normal Color. Negative for: Rashes Psychiatric: Positive for: Alert, Oriented x 3 - Medications Active Medications: Active Medications Generic Name Dose Route Start Last Admin Trade Name Freq PRN Reason Stop Dose Admin Albumin Human 12.5 gm 08/31/18 08:00 09/04/18 09:00 Albumin Human 25% (12.5 Gm/50 Ml) IV 12.5 gm Q4H TRAVIS Administration Albuterol/Ipratropium 3 ml 08/26/18 02:00 09/04/18 07:56 Duoneb 3 Mg/0.5 Mg (3 Ml) Ud IH 3 ml [id number] TRAVIS Administration Albuterol/Ipratropium 3 ml 08/25/18 20:01 08/25/18 23:35 Duoneb 3 Mg/0.5 Mg (3 Ml) Ud IH 3 ml Q2H PRN Administration Shortness of Breath Atorvastatin Calcium 80 mg 08/25/18 20:15 09/03/18 19:20 Lipitor PO Not Given DIN TRAVIS Carvedilol 12.5 mg 08/25/18 21:15 08/30/18 11:14 Coreg PO 12.5 mg BID TRAVIS Administration Docusate Sodium 100 mg 08/26/18 10:00 09/03/18 19:17 Colace PO Not Given BID TRAVIS Doxycycline Hyclate 100 mg 09/01/18 10:00 09/04/18 09:23 Doryx PO 09/06/18 10:01 100 mg Q12 TRAVIS Administration Protocol Furosemide 20 mg 09/04/18 12:06 Lasix PO 09/04/18 12:07 ONCE ONE Furosemide 40 mg 09/05/18 10:00 Lasix PO DAILY TRAVIS Glipizide 5 mg 08/29/18 10:45 08/31/18 07:45 Glucotrol PO Not Given ACB TRAVIS Cefepime HCl 1 gm in 100 mls @ 100 mls/hr 09/01/18 14:00 09/04/18 06:25 Maxipime 1gm IVPB 09/10/18 14:01 100 mls/hr Q8 TRAVIS Administration Protocol Insulin Human Lispro 0 units 09/04/18 00:00 09/04/18 06:25 Humalog High SC Not Given Q6 TRAVIS Protocol Lactulose 20 gm 08/31/18 14:00 12/13/18 17:03 Enulose PO 20 gm TID TRAVIS Administration Losartan Potassium 25 mg 08/27/18 12:30 08/30/18 11:14 Cozaar PO 25 mg DAILY TRAVIS Administration Pantoprazole Sodium 40 mg 09/04/18 22:00 Protonix Inj IVP Q12 TRAVIS Rifaximin 550 mg 08/31/18 10:00 09/04/18 09:23 Xifaxan PO 550 mg BID TRAVIS Administration Protocol - Patient Studies Lab Studies: Microbiology Studies 08/31/18 17:30 Blood Culture - Preliminary Blood NO GROWTH AFTER 3 DAYS 08/31/18 17:00 Blood Culture - Preliminary Blood NO GROWTH AFTER 3 DAYS Lab Studies 09/04/18 09/04/18 09/03/18 Range/Units 08:39 06:23 23:53 WBC (4.5-11.0) 10^3/uL RBC (3.5-6.1) 10^6/uL Hgb (14.0-18.0) g/dL Hct (42.0-52.0) % MCV (80.0-105.0) fl MCH (25.0-35.0) pg MCHC (31.0-37.0) g/dl RDW (11.5-14.5) % Plt Count (120.0-450.0) 10^3/uL MPV (7.0-11.0) fl Sodium (132-148) mmol/L Potassium (3.6-5.0) mmol/L Chloride (98-107) mmol/L Carbon Dioxide (21-33) mmol/L Anion Gap (10-20) BUN (7-21) mg/dL Creatinine (0.8-1.5) mg/dl Est GFR ( Amer) Est GFR (Non-Af Amer) POC Glucose (mg/dL) 108 102 100 (65-110) mg/dL Random Glucose (70-110) mg/dL Calcium (8.4-10.5) mg/dL Crossmatch 09/03/18 09/03/18 09/03/18 Range/Units 21:00 21:00 17:15 WBC 9.3 (4.5-11.0) 10^3/uL RBC 2.89 L (3.5-6.1) 10^6/uL Hgb 8.2 L (14.0-18.0) g/dL Hct 25.3 L (42.0-52.0) % MCV 87.5 (80.0-105.0) fl MCH 28.4 (25.0-35.0) pg MCHC 32.4 (31.0-37.0) g/dl RDW 17.2 H (11.5-14.5) % Plt Count 94 L (120.0-450.0) 10^3/uL MPV 10.0 (7.0-11.0) fl Sodium 149 H (132-148) mmol/L Potassium 3.6 (3.6-5.0) mmol/L Chloride 107 (98-107) mmol/L Carbon Dioxide 38 H (21-33) mmol/L Anion Gap 7 L (10-20) BUN 42 H (7-21) mg/dL Creatinine 0.8 (0.8-1.5) mg/dl Est GFR ( Amer) > 60 Est GFR (Non-Af Amer) > 60 POC Glucose (mg/dL) 124 H (65-110) mg/dL Random Glucose 109 (70-110) mg/dL Calcium 8.8 (8.4-10.5) mg/dL Crossmatch 09/03/18 09/03/18 09/02/18 Range/Units 15:35 12:10 07:45 WBC 10.2 D (4.5-11.0) 10^3/uL RBC 2.80 L (3.5-6.1) 10^6/uL Hgb 8.1 L (14.0-18.0) g/dL Hct 24.4 L (42.0-52.0) % MCV 87.1 (80.0-105.0) fl MCH 28.9 (25.0-35.0) pg MCHC 33.2 (31.0-37.0) g/dl RDW 17.0 H (11.5-14.5) % Plt Count 83 L (120.0-450.0) 10^3/uL MPV 9.0 (7.0-11.0) fl Sodium (132-148) mmol/L Potassium (3.6-5.0) mmol/L Chloride (98-107) mmol/L Carbon Dioxide (21-33) mmol/L Anion Gap (10-20) BUN (7-21) mg/dL Creatinine (0.8-1.5) mg/dl Est GFR ( Amer) Est GFR (Non-Af Amer) POC Glucose (mg/dL) 128 H (65-110) mg/dL Random Glucose (70-110) mg/dL Calcium (8.4-10.5) mg/dL Crossmatch See Detail Laboratory Results - last 24 hr 09/02/18 09/03/18 09/03/18 07:45 12:10 15:35 WBC 10.2 D RBC 2.80 L Hgb 8.1 L Hct 24.4 L MCV 87.1 MCH 28.9 MCHC 33.2 RDW 17.0 H Plt Count 83 L MPV 9.0 Sodium Potassium Chloride Carbon Dioxide Anion Gap BUN Creatinine Est GFR ( Amer) Est GFR (Non-Af Amer) POC Glucose (mg/dL) 128 H Random Glucose Calcium Crossmatch See Detail 09/03/18 09/03/18 09/03/18 17:15 21:00 21:00 WBC 9.3 RBC 2.89 L Hgb 8.2 L Hct 25.3 L MCV 87.5 MCH 28.4 MCHC 32.4 RDW 17.2 H Plt Count 94 L MPV 10.0 Sodium 149 H Potassium 3.6 Chloride 107 Carbon Dioxide 38 H Anion Gap 7 L BUN 42 H Creatinine 0.8 Est GFR ( Amer) > 60 Est GFR (Non-Af Amer) > 60 POC Glucose (mg/dL) 124 H Random Glucose 109 Calcium 8.8 Crossmatch 09/03/18 09/04/18 09/04/18 23:53 06:23 08:39 WBC RBC Hgb Hct MCV MCH MCHC RDW Plt Count MPV Sodium Potassium Chloride Carbon Dioxide Anion Gap BUN Creatinine Est GFR ( Amer) Est GFR (Non-Af Amer) POC Glucose (mg/dL) 100 102 108 Random Glucose Calcium Crossmatch Fingerstick Blood Sugar Results: 0 Review of Systems - Review of Systems All systems: reviewed and no additional remarkable complaints except (as per HPI) Critical Care Progress Note - Extremities/Vascular Does the Patient have a Lugo Catheter?: Yes Does the Patient need a Lugo Catheter?: Yes Catheter Insertion Criteria: Need for accurate measurement of output in critically ill patient - Prophylaxis DVT Prophylaxis DVT: SCDs - Nutrition Nutrition: Nutrition Category Date Time Status NPO Diet [DIET] Diets 09/02/18 Breakfast Ordered Assessment/Plan - Assessment and Plan (Free Text) Assessment: Patient is a 53 y/o M with PMHx HIV (not on HAART), COPD, CHF-rEF (ECHO on 05/10 showing EF 39% with septal hypokinesis), Biventricular HF, CAD s/p PCI, DM, HTN, HLD who presented to [facility] for worsening shortness of breath for 5 days in duration. Patient admitted and treated for COPD vs CHF exacerbation with fluid overload. ICU was consulted for evaluation of upper GI bleed with new onset anemia requiring multiple blood transfusions. Patient is s/p endoscopy x2 and was found to have multiple non-bleeding esophageal/gastric ulcers with a bleeding duodenal ulcer - s/p epi injection and clip. Plan: Neuro: - Currently AAOx3 on interview but has episode of confusion and waxing/waning as per prior documentation. Consider hepatic encephalopathy. - c/w rifaximin - Maintain normothermia Pulm: - Treated for COPD vs CHF exacerbation with fluid overload on the floor - switched to Lasix 40mg PO daily - c/w nasal cannula as needed - Saturating well and no acute respiratory distress. - Maintain SaO2 > 92% - Monitor ins/outs Cardio: - Maintain MAP > 65 - Echo (05/10): EF 39% with septal hypokinesis - Cardio is on consult. Recs appreciated - Hx CHF-rEF, Biventricular HF, HTN, DM, CAD (s/p PCI), HLD GI: - Upper GI bleed 2/2 multiple non-bleeding ulcers and bleeding duodenal ulcer s/p endoscopy x2 with epi injection and clip placement - Repeat endoscopy (09/02) showed bleeding duodenal ulcer - s/p injection and clip placement - Bleeding scan was positive - Will touch base with GI in regards to advancing diet as long as hemoglobin improves - Currently NPO - continue to monitor H/H - c/w protonix drip as per GI recs - Surgery consulted. Recs appreciated. - GI is on consult. Recs appreciated. Heme: - Most recent INR is 1.34 - Most recent Hgb is 8.2 - c/w transfusions as needed. Total transfusions during hospital course: x13 pRBC, x2 FFP, and x1 platelets - DVT ppx with SCDs Renal: - High Sodium, High BUN, and low albumin secondary to underlying liver cirrhosis - c/w albumin supplementation - Lugo in place - Monitor strict Ins/outs Endo: - ISS (high) - Accuchecks q4 - Maintain blood glucose within 140-180 range as per NICE-SUGAR trial - Hx DM ID: - remains on cefepime and doxycycline (Day 4 of 7). Given afebrile, no leukocytosis, and negative procal, will d/w ID about possible discontinuation of antibiotics. - ID is on consult. Recs appreciated Dispo: Continue to monitor patient in the ICU. Case was discussed and reviewed with Attending Physician, Dr. Eduardo. <Dago Eduardo - Last Filed: 09/04/18 16:54> CCU Objective - Vital Signs / Intake & Output Vital Signs (Last 4 hours): Vital Signs Temp Pulse Resp BP Pulse Ox 09/04/18 16:00 99.5 F 83 18 169/90 H 97 09/04/18 15:00 86 16 157/84 H 97 09/04/18 14:00 87 18 153/85 H 100 09/04/18 13:00 85 17 150/78 96 - Medications Active Medications: Active Medications Generic Name Dose Route Start Last Admin Trade Name Freq PRN Reason Stop Dose Admin Albumin Human 12.5 gm 08/31/18 08:00 09/04/18 15:41 Albumin Human 25% (12.5 Gm/50 Ml) IV 12.5 gm Q4H TRAVIS Administration Albuterol/Ipratropium 3 ml 08/26/18 02:00 09/04/18 13:44 Duoneb 3 Mg/0.5 Mg (3 Ml) Ud IH 3 ml [id number] TRAVIS Administration Albuterol/Ipratropium 3 ml 08/25/18 20:01 08/25/18 23:35 Duoneb 3 Mg/0.5 Mg (3 Ml) Ud IH 3 ml Q2H PRN Administration Shortness of Breath Atorvastatin Calcium 80 mg 08/25/18 20:15 09/03/18 19:20 Lipitor PO Not Given DIN TRAVIS Carvedilol 12.5 mg 08/25/18 21:15 08/30/18 11:14 Coreg PO 12.5 mg BID TRAVIS Administration Docusate Sodium 100 mg 08/26/18 10:00 09/04/18 11:37 Colace PO Not Given BID [facility] Doxycycline Hyclate 100 mg 09/01/18 10:00 09/04/18 09:23 Doryx PO 09/06/18 10:01 100 mg Q12 TRAVIS Administration Protocol Furosemide 40 mg 09/05/18 10:00 Lasix PO DAILY TRAVIS Glipizide 5 mg 08/29/18 10:45 08/31/18 07:45 Glucotrol PO Not Given ACB TRAVIS Cefepime HCl 1 gm in 100 mls @ 100 mls/hr 09/01/18 14:00 09/04/18 14:19 Maxipime 1gm IVPB 09/10/18 14:01 100 mls/hr Q8 [facility] Administration Protocol Insulin Human Lispro 0 units 09/04/18 00:00 09/04/18 11:50 Humalog High SC Not Given Q6 [facility] Protocol Lactulose 20 gm 08/31/18 14:00 09/01/18 17:03 Enulose PO 20 gm TID TRAVIS Administration Losartan Potassium 25 mg 08/27/18 12:30 08/30/18 11:14 Cozaar PO 25 mg DAILY TRAVIS Administration Pantoprazole Sodium 40 mg 09/04/18 22:00 Protonix Inj IVP Q12 TRAVIS Rifaximin 550 mg 08/31/18 10:00 09/04/18 09:23 Xifaxan PO 550 mg BID TRAVIS Administration Protocol - Patient Studies Lab Studies: Microbiology Studies 08/31/18 17:30 Blood Culture - Preliminary Blood NO GROWTH AFTER 3 DAYS 08/31/18 17:00 Blood Culture - Preliminary Blood NO GROWTH AFTER 3 DAYS Lab Studies 09/04/18 09/04/18 09/04/18 Range/Units 12:30 12:30 11:43 WBC 9.5 (4.5-11.0) 10^3/uL RBC 3.00 L (3.5-6.1) 10^6/uL Hgb 8.6 L (14.0-18.0) g/dL Hct 26.7 L (42.0-52.0) % MCV 89.0 (80.0-105.0) fl MCH 28.7 (25.0-35.0) pg MCHC 32.2 (31.0-37.0) g/dl RDW 17.7 H (11.5-14.5) % Plt Count 101 L (120.0-450.0) 10^3/uL MPV 10.1 (7.0-11.0) fl Sodium 148 (132-148) mmol/L Potassium 3.2 L (3.6-5.0) mmol/L Chloride 106 (98-107) mmol/L Carbon Dioxide 35 H (21-33) mmol/L Anion Gap 10 (10-20) BUN 34 H (7-21) mg/dL Creatinine 0.9 (0.8-1.5) mg/dl Est GFR ( Amer) > 60 Est GFR (Non-Af Amer) > 60 POC Glucose (mg/dL) 117 H (65-110) mg/dL Random Glucose 121 H (70-110) mg/dL Calcium 9.2 (8.4-10.5) mg/dL 09/04/18 09/04/18 09/03/18 Range/Units 08:39 06:23 23:53 WBC (4.5-11.0) 10^3/uL RBC (3.5-6.1) 10^6/uL Hgb (14.0-18.0) g/dL Hct (42.0-52.0) % MCV (80.0-105.0) fl MCH (25.0-35.0) pg MCHC (31.0-37.0) g/dl RDW (11.5-14.5) % Plt Count (120.0-450.0) 10^3/uL MPV (7.0-11.0) fl Sodium (132-148) mmol/L Potassium (3.6-5.0) mmol/L Chloride (98-107) mmol/L Carbon Dioxide (21-33) mmol/L Anion Gap (10-20) BUN (7-21) mg/dL Creatinine (0.8-1.5) mg/dl Est GFR ( Amer) Est GFR (Non-Af Amer) POC Glucose (mg/dL) 108 102 100 (65-110) mg/dL Random Glucose (70-110) mg/dL Calcium (8.4-10.5) mg/dL 09/03/18 09/03/18 09/03/18 Range/Units 21:00 21:00 17:15 WBC 9.3 (4.5-11.0) 10^3/uL RBC 2.89 L (3.5-6.1) 10^6/uL Hgb 8.2 L (14.0-18.0) g/dL Hct 25.3 L (42.0-52.0) % MCV 87.5 (80.0-105.0) fl MCH 28.4 (25.0-35.0) pg MCHC 32.4 (31.0-37.0) g/dl RDW 17.2 H (11.5-14.5) % Plt Count 94 L (120.0-450.0) 10^3/uL MPV 10.0 (7.0-11.0) fl Sodium 149 H (132-148) mmol/L Potassium 3.6 (3.6-5.0) mmol/L Chloride 107 (98-107) mmol/L Carbon Dioxide 38 H (21-33) mmol/L Anion Gap 7 L (10-20) BUN 42 H (7-21) mg/dL Creatinine 0.8 (0.8-1.5) mg/dl Est GFR ( Amer) > 60 Est GFR (Non-Af Amer) > 60 POC Glucose (mg/dL) 124 H (65-110) mg/dL Random Glucose 109 (70-110) mg/dL Calcium 8.8 (8.4-10.5) mg/dL 12/15/18 Range/Units 12:10 WBC (4.5-11.0) 10^3/uL RBC (3.5-6.1) 10^6/uL Hgb (14.0-18.0) g/dL Hct (42.0-52.0) % MCV (80.0-105.0) fl MCH (25.0-35.0) pg MCHC (31.0-37.0) g/dl RDW (11.5-14.5) % Plt Count (120.0-450.0) 10^3/uL MPV (7.0-11.0) fl Sodium (132-148) mmol/L Potassium (3.6-5.0) mmol/L Chloride (98-107) mmol/L Carbon Dioxide (21-33) mmol/L Anion Gap (10-20) BUN (7-21) mg/dL Creatinine (0.8-1.5) mg/dl Est GFR ( Amer) Est GFR (Non-Af Amer) POC Glucose (mg/dL) 128 H (65-110) mg/dL Random Glucose (70-110) mg/dL Calcium (8.4-10.5) mg/dL Laboratory Results - last 24 hr 09/03/18 09/03/18 09/03/18 12:10 17:15 21:00 WBC 9.3 RBC 2.89 L Hgb 8.2 L Hct 25.3 L MCV 87.5 MCH 28.4 MCHC 32.4 RDW 17.2 H Plt Count 94 L MPV 10.0 Sodium Potassium Chloride Carbon Dioxide Anion Gap BUN Creatinine Est GFR ( Amer) Est GFR (Non-Af Amer) POC Glucose (mg/dL) 128 H 124 H Random Glucose Calcium 09/03/18 09/03/18 09/04/18 21:00 23:53 06:23 WBC RBC Hgb Hct MCV MCH MCHC RDW Plt Count MPV Sodium 149 H Potassium 3.6 Chloride 107 Carbon Dioxide 38 H Anion Gap 7 L BUN 42 H Creatinine 0.8 Est GFR ( Amer) > 60 Est GFR (Non-Af Amer) > 60 POC Glucose (mg/dL) 100 102 Random Glucose 109 Calcium 8.8 09/04/18 09/04/18 09/04/18 08:39 11:43 12:30 WBC 9.5 RBC 3.00 L Hgb 8.6 L Hct 26.7 L MCV 89.0 MCH 28.7 MCHC 32.2 RDW 17.7 H Plt Count 101 L MPV 10.1 Sodium Potassium Chloride Carbon Dioxide Anion Gap BUN Creatinine Est GFR ( Amer) Est GFR (Non-Af Amer) POC Glucose (mg/dL) 108 117 H Random Glucose Calcium 09/04/18 12:30 WBC RBC Hgb Hct MCV MCH MCHC RDW Plt Count MPV Sodium 148 Potassium 3.2 L Chloride 106 Carbon Dioxide 35 H Anion Gap 10 BUN 34 H Creatinine 0.9 Est GFR ( Amer) > 60 Est GFR (Non-Af Amer) > 60 POC Glucose (mg/dL) Random Glucose 121 H Calcium 9.2 Critical Care Progress Note - Nutrition Nutrition: Nutrition Category Date Time Status NPO Diet [DIET] Diets 09/02/18 Breakfast Ordered Assessment/Plan - Assessment and Plan (Free Text) Plan: Patient seen and examined on rounds with resident, agree with note with following additions/exceptions: 53 M with PMHx HIV CD4 361 (not on HAART), COPD, CHF-rEF (ECHO on 05/10 showing EF 39% with septal hypokinesis), Biventricular HF, CAD s/p PCI, DM, HTN, HLD, found to be grually severely anemia s/p EGD found to have multiple non-bleeding esophageal, gastric, and duodenal ulcers, with subsequent drop in HH, had repeat EGD, Wednesday, found to have bleeding duodenal ulcer s/p epi injection and clip - currretly afebrile, BP stable, HR 70s, in NAD - no further clinical bleeding - HH has been stable since yesterday GIB Duodenal Ulcer HIV CHFCAD DM HTN HLD Recommend: - supp o2 as needed, duoensb PRN - Abx as per ID - Hold BP meds - Follow up ID - NPO - PPI drip - Rifaximin, Lactulose - maintain 2 large bore PIVs - q6hr CBC monitoring - if HH does not improve, or has HD compromise, may need IR embolization - GI ppx - DVT ppx, SCDs - Monitor in MICU
[2018-09-04 12:51] LABS: HEMOGLOBIN 8.6 g/dL (14.0-18.0); MEAN CORPUSCULAR HEMOGLOBIN 28.7 pg (25.0-35.0); MEAN CORPUSCULAR HGB CONC 32.2 g/dl (31.0-37.0); MEAN PLATELET VOLUME 10.1 fl (7.0-11.0); RED CELL DISTRIBUTION WIDTH 17.7 % (11.5-14.5); WHITE BLOOD COUNT 9.5 10^3/uL (4.5-11.0)
[2018-09-04 13:01] LABS: BLOOD UREA NITROGEN 34 mg/dL (7-21); CALCIUM 9.2 mg/dL (8.4-10.5); GFR NON-AFRICAN AMERICAN > 60
--- NOTE | 2018-09-04 13:41 | CP.PCM.PN ---
<Elie Herr - Last Filed: 09/04/18 13:37> Subjective - Date & Time of Evaluation Date of Evaluation: 09/04/18 Time of Evaluation: 09:00 - Subjective Subjective: Elie Herr PGY-1 Progress Note for Hospitalist Service Patient seen and evaluated at bedside. No acute events reported overnight, other than room change. Reports episode of melena overnight. Denies chest pain, palpitations, increased shortness of breath, headaches, dizziness, blurry vision abdominal pain, hemoptysis. Objective - Vital Signs/Intake and Output Vital Signs (last 24 hours): Temp Pulse Resp BP Pulse Ox 99.1 F 86 13 139/77 97 09/04/18 12:00 09/04/18 10:00 09/03/18 22:00 09/04/18 11:54 09/03/18 22:00 - Medications Medications: Current Medications Albumin Human (Albumin Human 25% (12.5 Gm/50 Ml)) 12.5 gm IV Q4H [facility] Last Admin: 09/04/18 11:45 Dose: 12.5 gm Albuterol/Ipratropium (Duoneb 3 Mg/0.5 Mg (3 Ml) Ud) 3 ml IH [id number] [facility] Last Admin: 09/04/18 07:56 Dose: 3 ml Albuterol/Ipratropium (Duoneb 3 Mg/0.5 Mg (3 Ml) Ud) 3 ml IH Q2H PRN PRN Reason: Shortness of Breath Last Admin: 08/25/18 23:35 Dose: 3 ml Atorvastatin Calcium (Lipitor) 80 mg PO DIN [facility] Last Admin: 09/03/18 19:20 Dose: Not Given Carvedilol (Coreg) 12.5 mg PO BID [facility] Last Admin: 08/30/18 11:14 Dose: 12.5 mg Docusate Sodium (Colace) 100 mg PO BID [facility] Last Admin: 09/04/18 11:37 Dose: Not Given Doxycycline Hyclate (Doryx) 100 mg PO Q12 [facility]; Protocol Stop: 09/06/18 10:01 Last Admin: 09/04/18 09:23 Dose: 100 mg Furosemide (Lasix) 40 mg PO DAILY [facility] Glipizide (Glucotrol) 5 mg PO ACB [facility] Last Admin: 08/31/18 07:45 Dose: Not Given Cefepime HCl (Maxipime 1gm) 1 gm in 100 mls @ 100 mls/hr IVPB Q8 [facility]; Protocol Stop: 09/10/18 14:01 Last Admin: 09/04/18 06:25 Dose: 100 mls/hr Insulin Human Lispro (Humalog High) 0 units SC Q6 [facility]; Protocol Last Admin: 09/04/18 11:50 Dose: Not Given Lactulose (Enulose) 20 gm PO TID [facility] Last Admin: 09/01/18 17:03 Dose: 20 gm Losartan Potassium (Cozaar) 25 mg PO DAILY [facility] Last Admin: 08/30/18 11:14 Dose: 25 mg Pantoprazole Sodium (Protonix Inj) 40 mg IVP Q12 [facility] Rifaximin (Xifaxan) 550 mg PO BID [facility]; Protocol Last Admin: 09/04/18 09:23 Dose: 550 mg - Labs Labs: 09/04/18 12:30 09/04/18 12:30 PT 15.5 SECONDS (9.4-12.5) H 09/03/18 08:30 INR 1.34 09/03/18 08:30 APTT 29.6 Seconds (25.1-36.5) 09/03/18 08:30 - Additional Findings Additional findings: - Constitutional Appears: Fair, Non-toxic, No Acute Distress - Head Exam Head Exam: ATRAUMATIC, NORMAL INSPECTION, NORMOCEPHALIC - Eye Exam Eye Exam: EOMI Pupil Exam: PERRL - Respiratory Exam Respiratory Exam: Rhonchi bilaterally, NORMAL BREATHING PATTERN, on BiPAP at this time - Cardiovascular Exam Cardiovascular Exam: REGULAR RHYTHM, +S1+S2 - GI/Abdominal Exam GI & Abdominal Exam: Soft, Normal Bowel Sounds, morbidly obese, nontender nondistended - Extremities Exam Extremities Exam: Full ROM. Chronic vascular epidermal changes to both LEs below knee - Neurological Exam Neurological Exam: Alert, Awake, CN II-XII Intact, Oriented x3 Assessment and Plan - Assessment and Plan (Free Text) Assessment: 53 year old male with past medical history of COPD, diabetes mellitus type II, HTN, HLD, systolic CHF with EF of 39%, CAD with stent, lumbar radiculopathy, gout, and HIV presents with shortness of breath on admission after falling at home. Initial CXR showed cardiomegaly with resolved pulmonary congestion. Echocardiogram from 05/07 showed mild concentric LVH, systolic function moderately impaired, septal hypokinesis, mild MR, moderate TR, mild pulmonary HTN, and aortic root mildly enlarged. Patient with persistent anemia and melena . Hemodynamically stable. Plan: Severe anemia likely 2/2 UGI bleed vs varices vs ulcer - Hgb 8.6 this AM, s/p 12 units of PRBC overall, s/p 2 units PRBC and 1 PLT 09/03. CBC q6. - Melena reported - PT/INR 15.5/1.34 - f/u Haptoglobin, peripheral smear, direct jade - Relative thrombocytopenia to 78 compared to baseline, will continue to monitor - Abdominal U/S showed patent portal vein, trace ascites. Limited study. Bleeding scan 09/02 showed GI hemmorhage in likely in stomach with migration through duodenum and prox small bowel. - ICU consult placed - Dr. Alesha augustin appreciated - GI consult - Dr. Suzie augustin appreciated. Repeat EGD 09/02 showed clotted blood in gastric fundus and body as well as oozing hemmorhagic duodenal ulcerm where a hemostatic clip was placed. PTX drip. - Initial EGD showed esophageal, duodenal and gastric ulcers, with coffee-ground emesis vs blood found in antrum. Moderate portal HTN gastropathy. - Gen Surg consulted - Dr. Vizcarra- for ? UGI bleed- no indication for surgical intervention at this time, may recommend IR consult for angiogram if patient deteriorates or continues to have significant bleeding Hypotension- resolved - 117-151/66-82 today. Periods of hypotension last week, lowest at 83/50. - Albumin q4 - continue to monitor Shortness of Breath likely 2/2 to CHF exacerbation -CXR consistent with cardiomegaly, patient has noncompliance with BiPAP -BNP 24272 -Echocardiogram shows mild systolic congestive heart failure with EF of 39% from 04/2018 -For suspected CHF, patient should continue with coreg 12.5 mg BID per cardio. Clinically, patient does not have significant lower extremity edema. Patient was ordered Bipap for CHF as well. Coreg and Cozaar currently on hold. -Cardio consult- Dr. Naomi augustin appreciated. Transitioned to Lasix 40 PO daily - f/u sputum culture - Cefepime and Doxycycline day 4, for 4-7 days per ID for HCAP Hypokalemia Repleted 09/04 continue to monitor in AM labs Leukocytosis likely 2/2 acute infection- improving -WBC: 9.5 - repeat CXR 09/03 shows mild pulm congestion, L basilar atelectasis,/infiltrate vs pleural effusion, Cardiomegaly. - repeat CXR shows bilateral vascular congestion - Repeat Procal 0.24 - Doxy and Cefepime - f/u repeat blood cultures, f/u sputum cx - continue to monitor Severe Agitation 2/2 Hepatic encephalopathy vs schizophrenia vs. alcohol withdrawal -Abdominal ultrasound suggests hepatocellular disease or cirrhosis. Trace ascites. - On Rifaximin 550 mg BID - Ammonia 49 initially, 66 on 08/31 -Psychiatry consult for other possible causes of agitation such as schizophrenia placed- no psych indication for continued follow up, and delirium may take few weeks to resolve CAD with stent -EKG: Atrial fibrillation, right bundle branch block, HR of 88 -Troponinx3: 0.06, 0.06, 0.05. Unlikely DE. Elevation likely due to CORAZON -Cardiac catheterization in 12/2017 showed LAD lesion 80% -Continue with aspirin, antiHTN meds held -TSH: 2.41, LDL: 75 -ICU monitoring -History of use of life vest CORAZON Cr at baseline -BUN/Cr ratio more than 20:1 so likely prerenal cause, dehydration from repeated administration of lasix for suspected CHF Diabetes mellitus type II -Accuchecks -HgbA1c: 6.9 -Hypoglycemia protocol -CLD -Lispro high, Glipizide held Obstructive Sleep Apnea -Continue with CPAP/BiPap at night Hypertension - coreg, cozaar held in light of recent hypotension. Will resume if consistently hypertensive Constipation -Continue with colace Hyperlipidemia -Lipid panel unremarkable -Continue with lipitor History of HIV -HIV antibody reactive with 3.33 on PCR - CD4 count 361 - MRSA nose negative - f/u sputum culture GI prophylaxis: Protonix drip in light of GI bleed, for 72 hours per GI DVT prophylaxis: heparin 5000 U Q8 held in light of anemia Dispo: NPO. Awaiting PT recs. Patient would like to return home after hospitalization. Patient seen, case reviewed and plan approved by Dr. Danielle. Elie Herr, PGY-1 <Sonu Danielle - Last Filed: 09/06/18 16:26> Objective - Vital Signs/Intake and Output Vital Signs (last 24 hours): Temp Pulse Resp BP Pulse Ox 98.9 F 86 19 135/100 H 93 L 09/05/18 23:00 09/06/18 12:00 09/06/18 08:00 09/06/18 12:00 09/06/18 08:00 - Medications Medications: Current Medications Albuterol/Ipratropium (Duoneb 3 Mg/0.5 Mg (3 Ml) Ud) 3 ml IH [id number] [facility] Last Admin: 09/06/18 14:02 Dose: 3 ml Albuterol/Ipratropium (Duoneb 3 Mg/0.5 Mg (3 Ml) Ud) 3 ml IH Q2H PRN PRN Reason: Shortness of Breath Last Admin: 08/25/18 23:35 Dose: 3 ml Atorvastatin Calcium (Lipitor) 80 mg PO DIN [facility] Last Admin: 09/05/18 17:19 Dose: 80 mg Carvedilol (Coreg) 12.5 mg PO BID [facility] Last Admin: 09/06/18 12:00 Dose: 12.5 mg Docusate Sodium (Colace) 100 mg PO BID [facility] Last Admin: 09/06/18 12:00 Dose: 100 mg Furosemide (Lasix) 40 mg PO DAILY [facility] Last Admin: 09/06/18 12:00 Dose: 40 mg Glipizide (Glucotrol) 5 mg PO ACB [facility] Last Admin: 08/31/18 07:45 Dose: Not Given Insulin Human Lispro (Humalog High) 0 units SC Q6 [facility]; Protocol Last Admin: 09/06/18 12:00 Dose: Not Given Losartan Potassium (Cozaar) 25 mg PO DAILY [facility] Last Admin: 08/30/18 11:14 Dose: 25 mg Pantoprazole Sodium (Protonix Inj) 40 mg IVP Q12 [facility] Last Admin: 09/06/18 15:05 Dose: 40 mg - Labs Labs: 09/06/18 11:35 09/06/18 05:00 PT 14.5 SECONDS (9.4-12.5) H 09/06/18 05:00 INR 1.26 09/06/18 05:00 APTT 29.6 Seconds (25.1-36.5) 09/03/18 08:30 Attending/Attestation - Attestation I have personally seen and examined this patient.: Yes I have fully participated in the care of the patient.: Yes I have reviewed all pertinent clinical information, including history, physical exam and plan: Yes Notes (Text): 09/06/18 16:26 Medical record note made by the resident after discussion with my direction and input after the patient was personally seen and examined by me. I have reviewed the chart and agree that the record accurately reflects by personal performance of the history, physical exam, data review, and medical decision-making, in the course for the patient. I have also personally directed the plan of care.
[2018-09-04] MEDS ORDERED: Potassium Chloride 20 mEq ER Tab PO STA (15:26)
--- NOTE | 2018-09-04 18:31 | PN ---
DATE: 09/04/2018 SUBJECTIVE: The patient denies any chest pain or shortness of breath at this time. PHYSICAL EXAMINATION VITAL SIGNS: Blood pressure 139/77, heart rate 86, temperature 99.1, respirations 20. HEENT: Pale conjunctivae. CHEST: Bibasilar rhonchi. HEART: S1 and S2 regular. EXTREMITIES: 1+ pitting edema. LABORATORY DATA: Today's hemoglobin and hematocrit are 8.6 and 26.7, white count 9.5, platelet count 101,000. Today's SMA-7: Sodium 148, potassium 3.2, chloride 106, CO2 of 35, glucose 121, BUN 34, creatinine 0.9. ASSESSMENT: 1. Cardiomyopathy. 2. Upper gastrointestinal bleeding. 3. Thrombocytopenia. 4. Human immunodeficiency virus positive. 5. Liver cirrhosis and ammonia encephalopathy. 6. Uncontrolled diabetes mellitus. RECOMMENDATIONS: Continue current IV albumin 12.5 g every 4 hours. Continue Coreg 12.5 mg once a day, Cozaar 25 mg once a day, Enulose t.i.d., Lasix 40 mg p.o. once a day, Maxipime at 1 g daily and Protonix 40 mg IV every 12 hours. Beny Salgado MD
[2018-09-04 19:48] LABS: HEMOGLOBIN 8.1 g/dL (14.0-18.0); MEAN CELL VOLUME 88.3 fl (80.0-105.0); MEAN CORPUSCULAR HEMOGLOBIN 28.6 pg (25.0-35.0); MEAN CORPUSCULAR HGB CONC 32.4 g/dl (31.0-37.0); MEAN PLATELET VOLUME 9.2 fl (7.0-11.0); RBC 2.83 10^6/uL (3.5-6.1); RED CELL DISTRIBUTION WIDTH 18.1 % (11.5-14.5); WHITE BLOOD COUNT 8.2 10^3/uL (4.5-11.0)
[2018-09-05] MEDS: Albuterol-Ipratrop 3 mg / 0.5 (3 ml) UD IH SCH ×3 (02:00→19:31)
[2018-09-05] MEDS: Albumin Human 25% (12.5 gm/50 ml) IV SCH (03:35)
[2018-09-05] MEDS: Cefepime 1gm in NS 100ml 1 GM/100 ML BAG IVPB SCH ×3 (06:04→21:33)
[2018-09-05] MEDS: Insulin Lispro (HUMAlog) HIGH Coverage SC SCH ×4 (06:18→17:52)
--- NOTE | 2018-09-05 06:52 | CP.PCM.PN ---
<Elaina Baca L - Last Filed: 09/05/18 16:24> Subjective - Date & Time of Evaluation Date of Evaluation: 09/05/18 Time of Evaluation: 06:51 - Subjective Subjective: Resident Progress Note for Hospitalist Service Patient examined at bedside. Patient is resting comfortably in bed in no acute distress. Offers no complaints at this time. Had one episode of hematochezia yesterday. Denies fevers, chills, chest pain, shortness of breath, abdominal pain. Plan for EGD today. Objective - Vital Signs/Intake and Output Vital Signs (last 24 hours): Temp Pulse Resp BP Pulse Ox 98.6 F 112 H 20 180/91 H 98 09/05/18 04:00 09/05/18 02:00 09/04/18 18:00 09/04/18 18:00 09/04/18 18:00 Intake and Output: 09/04/18 09/05/18 18:59 06:59 Intake Total 1350 350 Output Total 5150 1250 Balance -3800 -900 - Medications Medications: Current Medications Albumin Human (Albumin Human 25% (12.5 Gm/50 Ml)) 12.5 gm IV Q4H [facility] Last Admin: 09/05/18 03:35 Dose: 12.5 gm Albuterol/Ipratropium (Duoneb 3 Mg/0.5 Mg (3 Ml) Ud) 3 ml IH [id number] [facility] Last Admin: 09/05/18 02:00 Dose: Not Given Albuterol/Ipratropium (Duoneb 3 Mg/0.5 Mg (3 Ml) Ud) 3 ml IH Q2H PRN PRN Reason: Shortness of Breath Last Admin: 08/25/18 23:35 Dose: 3 ml Atorvastatin Calcium (Lipitor) 80 mg PO DIN [facility] Last Admin: 09/04/18 18:27 Dose: 80 mg Carvedilol (Coreg) 12.5 mg PO BID [facility] Last Admin: 08/30/18 11:14 Dose: 12.5 mg Docusate Sodium (Colace) 100 mg PO BID [facility] Last Admin: 09/04/18 17:25 Dose: Not Given Doxycycline Hyclate (Doryx) 100 mg PO Q12 [facility]; Protocol Stop: 09/06/18 10:01 Last Admin: 09/04/18 21:15 Dose: 100 mg Furosemide (Lasix) 40 mg PO DAILY [facility] Glipizide (Glucotrol) 5 mg PO ACB [facility] Last Admin: 08/31/18 07:45 Dose: Not Given Cefepime HCl (Maxipime 1gm) 1 gm in 100 mls @ 100 mls/hr IVPB Q8 [facility]; Protocol Stop: 09/10/18 14:01 Last Admin: 09/05/18 06:04 Dose: 100 mls/hr Insulin Human Lispro (Humalog High) 0 units SC Q6 [facility]; Protocol Last Admin: 09/05/18 06:18 Dose: Not Given Lactulose (Enulose) 20 gm PO TID [facility] Last Admin: 09/01/18 17:03 Dose: 20 gm Losartan Potassium (Cozaar) 25 mg PO DAILY [facility] Last Admin: 08/30/18 11:14 Dose: 25 mg Pantoprazole Sodium (Protonix Inj) 40 mg IVP Q12 [facility] Last Admin: 09/04/18 21:15 Dose: 40 mg Rifaximin (Xifaxan) 550 mg PO BID [facility]; Protocol Last Admin: 09/04/18 18:27 Dose: 550 mg - Labs Labs: 09/04/18 19:30 09/04/18 12:30 PT 15.5 SECONDS (9.4-12.5) H 09/03/18 08:30 INR 1.34 09/03/18 08:30 APTT 29.6 Seconds (25.1-36.5) 09/03/18 08:30 - Constitutional Appears: Non-toxic, No Acute Distress - Head Exam Head Exam: ATRAUMATIC, NORMOCEPHALIC - Eye Exam Eye Exam: EOMI, Normal appearance, PERRL - ENT Exam ENT Exam: Mucous Membranes Moist, Normal Exam - Neck Exam Neck Exam: Full ROM. absent: Lymphadenopathy, Thyromegaly - Respiratory Exam Respiratory Exam: Rales, NORMAL BREATHING PATTERN. absent: Accessory Muscle Use, Respiratory Distress - Cardiovascular Exam Cardiovascular Exam: REGULAR RHYTHM, +S1, +S2. absent: Murmur - GI/Abdominal Exam GI & Abdominal Exam: Soft, Normal Bowel Sounds. absent: Distended, Firm, Guardi ng, Tenderness, Rebound - Extremities Exam Extremities Exam: Normal Capillary Refill. absent: Pedal Edema - Neurological Exam Neurological Exam: Alert, Awake, CN II-XII Intact, Oriented x3 - Psychiatric Exam Psychiatric exam: Normal Affect, Normal Mood - Skin Skin Exam: Dry, Intact, Warm Assessment and Plan - Assessment and Plan (Free Text) Assessment: 53 year old male with past medical history of COPD, diabetes mellitus type II, HTN, HLD, systolic CHF with EF of 39%, CAD with stent, lumbar radiculopathy, gout, and HIV presents with shortness of breath, admitted to ICU for management of UGIB. Plan: Anemia 2/2 UGI bleed - s/p 13 units of pRBCs, 2 FFPs - Abdominal U/S showed patent portal vein, trace ascites. Limited study. - Bleeding scan 09/02 showed GI hemorrhage in likely in stomach with migration through duodenum and prox small bowel. - ICU consult placed - Dr. Alesha augustin appreciated - GI consult - Dr. Suzie augustin appreciated. - Initial EGD showed esophageal, duodenal and gastric ulcers, with coffee-ground emesis vs blood found in antrum. Moderate portal HTN gastropathy. - Repeat EGD 09/02 showed clotted blood in gastric fundus and body as well as oozing hemorrhagic duodenal ulcer where a hemostatic clip was placed - Gen Surg consulted - no indication for surgical intervention at this time - Abd/pelvis CT shows minimal ascites, unremarkable gallbladder, no overt hepatic cirrhotic pattern Shortness of breath - CXR consistent with cardiomegaly - ECHO shows mild systolic congestive heart failure with EF of 39% from 04/2018 - Coreg and Cozaar currently on hold - Cardio consult- Dr. Naomi augustin appreciated. Transitioned to Lasix 40 PO daily - Cefepime and Doxycycline for 4-7 days per ID for HCAP - 08/31 BCx neg x2 CAD with stent - EKG: Atrial fibrillation, RBBB - Troponinx3: 0.06, 0.06, 0.05 likely due to CORAZON - Cardiac catheterization in 12/2017 showed LAD lesion 80% - Continue with aspirin, antiHTN meds held - TSH: 2.41, LDL: 75 T2DM - Accuchecks - HgbA1c: 6.9 - Lispro high, Glipizide held CHARAN - Continue with CPAP/BiPap Hypertension - coreg, cozaar held in light of recent hypotension Hyperlipidemia - Lipid panel unremarkable - Continue with lipitor HIV - HIV antibody reactive with 3.33 on PCR - CD4 count 361 - MRSA nose negative GI prophylaxis: Protonix 40 mg IV Q12 DVT prophylaxis contraindicated due to UGIB Case discussed with Dr. Shashi Baca PGY-1 <Sonu Danielle - Last Filed: 09/06/18 16:25> Objective - Vital Signs/Intake and Output Vital Signs (last 24 hours): Temp Pulse Resp BP Pulse Ox 98.9 F 86 19 135/100 H 93 L 09/05/18 23:00 09/06/18 12:00 09/06/18 08:00 09/06/18 12:00 09/06/18 08:00 - Medications Medications: Current Medications Albuterol/Ipratropium (Duoneb 3 Mg/0.5 Mg (3 Ml) Ud) 3 ml IH [id number] [facility] Last Admin: 09/06/18 14:02 Dose: 3 ml Albuterol/Ipratropium (Duoneb 3 Mg/0.5 Mg (3 Ml) Ud) 3 ml IH Q2H PRN PRN Reason: Shortness of Breath Last Admin: 08/25/18 23:35 Dose: 3 ml Atorvastatin Calcium (Lipitor) 80 mg PO DIN [facility] Last Admin: 09/05/18 17:19 Dose: 80 mg Carvedilol (Coreg) 12.5 mg PO BID [facility] Last Admin: 09/06/18 12:00 Dose: 12.5 mg Docusate Sodium (Colace) 100 mg PO BID [facility] Last Admin: 09/06/18 12:00 Dose: 100 mg Furosemide (Lasix) 40 mg PO DAILY [facility] Last Admin: 09/06/18 12:00 Dose: 40 mg Glipizide (Glucotrol) 5 mg PO ACB [facility] Last Admin: 08/31/18 07:45 Dose: Not Given Insulin Human Lispro (Humalog High) 0 units SC Q6 [facility]; Protocol Last Admin: 09/06/18 12:00 Dose: Not Given Losartan Potassium (Cozaar) 25 mg PO DAILY [facility] Last Admin: 08/30/18 11:14 Dose: 25 mg Pantoprazole Sodium (Protonix Inj) 40 mg IVP Q12 [facility] Last Admin: 09/06/18 15:05 Dose: 40 mg - Labs Labs: 09/06/18 11:35 09/06/18 05:00 PT 14.5 SECONDS (9.4-12.5) H 09/06/18 05:00 INR 1.26 09/06/18 05:00 APTT 29.6 Seconds (25.1-36.5) 09/03/18 08:30 Attending/Attestation - Attestation I have personally seen and examined this patient.: Yes I have fully participated in the care of the patient.: Yes I have reviewed all pertinent clinical information, including history, physical exam and plan: Yes Notes (Text): 09/06/18 16:21 Medical record note made by the resident after discussion with my direction and input after the patient was personally seen and examined by me. I have reviewed the chart and agree that the record accurately reflects by personal performance of the history, physical exam, data review, and medical decision-making, in the course for the patient. I have also personally directed the plan of care. 53 yrs male with PMHx significant for HIV not on HAART, COPD, systolic CHF with biventricular failure, CAD s/p PCI, DM, HTN, hyperlipidemia and non compliance who presented to the hospital with shortness of breath.Patient had Acute blood loss anemia 2/2 severe PUD, required multiple PRBC transfusion, 2nd EGD on 09/02 with actively bleeding vessel Duodenal (FC1b) Ulcer SP epi injs and clip with hemostasis Patient hemoglobin is slowly dropping.Case was discussed with GI, plan for repeat Endoscopy today. Continue PPI, Patient will get one unit of PRBC,We will monitor hemoglobin and hematocrit. Management plan was discussed in detail with patient. Education was provided.
[2018-09-05 07:06] LABS: EOS # 0.1 (0.0-0.7); EOS % 1.3 % (1.5-5.0); GRAN # 5.5 (1.4-6.5); GRAN % 71.1 % (50.0-68.0); HEMOGLOBIN 7.6 g/dL (14.0-18.0); LYMPH # 1.8 (1.2-3.4); LYMPH % 22.6 % (22.0-35.0); MEAN CELL VOLUME 89.2 fl (80.0-105.0); MEAN CORPUSCULAR HEMOGLOBIN 28.4 pg (25.0-35.0); MEAN CORPUSCULAR HGB CONC 31.8 g/dl (31.0-37.0); MONO # 0.4 (0.1-0.6); RBC 2.68 10^6/uL (3.5-6.1); RED CELL DISTRIBUTION WIDTH 18.6 % (11.5-14.5); WHITE BLOOD COUNT 7.7 10^3/uL (4.5-11.0)
[2018-09-05 07:07] LABS: INR 1.31; PROTHROMBIN TIME 15.1 SECONDS (9.4-12.5)
[2018-09-05 07:23] LABS: ALB/GLOB RATIO 1.1 (1.1-1.8); ALBUMIN 3.3 g/dL (3.0-4.8); ALT/SGPT 27 U/L (7-56); AST/SGOT 40 U/L (17-59); BLOOD UREA NITROGEN 26 mg/dL (7-21); CALCIUM 8.7 mg/dL (8.4-10.5); GFR NON-AFRICAN AMERICAN > 60
[2018-09-05] MEDS ORDERED: Potassium Chloride 20 mEq ER Tab PO STA (08:46)
[2018-09-05] MEDS ORDERED: Barium Sulfate Susp 2.1% w/v, 2.0% w/w 450 mL Bottle PO ONE (09:29)
--- NOTE | 2018-09-05 10:28 | CP.PCM.PN ---
Subjective - Date & Time of Evaluation Date of Evaluation: 09/05/18 Time of Evaluation: 08:00 - Subjective Subjective: PGY6 GI Fellow Progress Note Patient seen and examined bedside this morning. The patient states that he is feeling better today and is hungry and eager to eat. Denies any abdominal pain presently. Did have episodes of dark stool over the weekend. 12 system ROS performed and negative except where stated Objective - Vital Signs/Intake and Output Vital Signs (last 24 hours): Temp Pulse Resp BP Pulse Ox 97.9 F 95 H 24 155/94 H 94 L 09/05/18 08:00 09/05/18 08:00 09/05/18 08:00 09/05/18 09:32 09/05/18 03:00 Intake and Output: 09/05/18 09/05/18 06:59 18:59 Intake Total 350 Output Total 1250 Balance -900 - Medications Medications: Current Medications Albuterol/Ipratropium (Duoneb 3 Mg/0.5 Mg (3 Ml) Ud) 3 ml IH [id number] [facility] Last Admin: 09/05/18 08:05 Dose: 3 ml Albuterol/Ipratropium (Duoneb 3 Mg/0.5 Mg (3 Ml) Ud) 3 ml IH Q2H PRN PRN Reason: Shortness of Breath Last Admin: 08/25/18 23:35 Dose: 3 ml Atorvastatin Calcium (Lipitor) 80 mg PO DIN [facility] Last Admin: 09/04/18 18:27 Dose: 80 mg Carvedilol (Coreg) 12.5 mg PO BID [facility] Last Admin: 08/30/18 11:14 Dose: 12.5 mg Docusate Sodium (Colace) 100 mg PO BID [facility] Last Admin: 09/05/18 09:32 Dose: 100 mg Doxycycline Hyclate (Doryx) 100 mg PO Q12 [facility]; Protocol Stop: 09/06/18 10:01 Last Admin: 09/04/18 21:15 Dose: 100 mg Furosemide (Lasix) 40 mg PO DAILY [facility] Last Admin: 09/05/18 09:32 Dose: 40 mg Glipizide (Glucotrol) 5 mg PO ACB [facility] Last Admin: 08/31/18 07:45 Dose: Not Given Cefepime HCl (Maxipime 1gm) 1 gm in 100 mls @ 100 mls/hr IVPB Q8 [facility]; Protocol Stop: 09/10/18 14:01 Last Admin: 09/05/18 06:04 Dose: 100 mls/hr Potassium Chloride (Potassium Chloride 10 Meq/100 Ml) 10 meq in 100 mls @ 50 mls/hr IVPB ONCE ONE Stop: 09/05/18 10:45 Last Admin: 09/05/18 09:33 Dose: 50 mls/hr Insulin Human Lispro (Humalog High) 0 units SC Q6 [facility]; Protocol Last Admin: 09/05/18 06:18 Dose: Not Given Lactulose (Enulose) 20 gm PO TID [facility] Last Admin: 09/01/18 17:03 Dose: 20 gm Losartan Potassium (Cozaar) 25 mg PO DAILY [facility] Last Admin: 08/30/18 11:14 Dose: 25 mg Pantoprazole Sodium (Protonix Inj) 40 mg IVP Q12 [facility] Last Admin: 09/05/18 09:32 Dose: 40 mg Rifaximin (Xifaxan) 550 mg PO BID [facility]; Protocol Last Admin: 09/05/18 09:32 Dose: 550 mg - Labs Labs: 09/05/18 06:00 09/05/18 06:00 PT 15.1 SECONDS (9.4-12.5) H 09/05/18 06:00 INR 1.31 09/05/18 06:00 APTT 29.6 Seconds (25.1-36.5) 09/03/18 08:30 - Constitutional Appears: Non-toxic, No Acute Distress - Eye Exam Eye Exam: EOMI, PERRL - ENT Exam ENT Exam: Mucous Membranes Moist - Respiratory Exam Respiratory Exam: Clear to Ausculation Bilateral. absent: Rales, Rhonchi, Wheezes - Cardiovascular Exam Cardiovascular Exam: RRR, +S1, +S2 - GI/Abdominal Exam GI & Abdominal Exam: Soft, Normal Bowel Sounds. absent: Distended, Firm, Guarding, Rigid, Tenderness, Organomegaly - Extremities Exam Extremities Exam: Normal Inspection. absent: Pedal Edema - Neurological Exam Neurological Exam: Alert, Awake, Oriented x3 - Psychiatric Exam Psychiatric exam: Agitated - Skin Skin Exam: Dry, Warm Assessment and Plan - Assessment and Plan (Free Text) Assessment: Patient is a 53yo male with PMHx significant for HIV not on HAART, COPD, systolic CHF with biventricular failure, CAD s/p PCI, DM, HTN, hyperlipidemia who presented to the hospital 5 days ago with shortness of breath -Acute blood loss anemia 2/2 severe PUD and active GI bleeding from duodenum -Biventricular heart failure -COPD with acute exacerbation -Cirrhosis c/b hepatic encephalopathy -CAD -Hypertensive urgency -HIV Plan: -S/P EGD with injection of epinephrine and clipping of active bleeding lesion with visible vessel in duodenum -Continue supportive care and blood transfusion as needed -Liquid diet and advance as tolerated -If significant GI bleeding recurs, recommend IR evaluation for gastroduodenal embolization -Mentation improved, continue Xifaxan -Chronic liver disease work up unremarkable thus far -BP with systolic in 200s this morning; defer to primary service -Continue to monitor clinical course
[2018-09-05] MEDS ORDERED: Magnesium Sulfate 1 gm in D5W 1 GM/100 ML BAG IVPB ONE (10:33)
[2018-09-05] MEDS ORDERED: Potassium Phosphate 3 mmol/ml Inj IV ONE (10:35)
[2018-09-05] MEDS ORDERED: Potassium Phosphate 15 MMOLE in Sodium Chloride 0.9% 250 ML IVPB ONE (10:45)
[2018-09-05 11:56] LABS: EOS # 0.1 (0.0-0.7); EOS % 1.9 % (1.5-5.0); GRAN # 5.04 (1.4-6.5); GRAN % 69.8 % (50.0-68.0); HEMOGLOBIN 7.5 g/dL (14.0-18.0); LYMPH # 1.5 (1.2-3.4); LYMPH % 20.7 % (22.0-35.0); MEAN CELL VOLUME 89.4 fl (80.0-105.0); MEAN CORPUSCULAR HEMOGLOBIN 28.3 pg (25.0-35.0); MEAN CORPUSCULAR HGB CONC 31.6 g/dl (31.0-37.0); MEAN PLATELET VOLUME 9.5 fl (7.0-11.0); MONO # 0.6 (0.1-0.6); MONO % 7.6 % (1.0-6.0); RBC 2.65 10^6/uL (3.5-6.1); WHITE BLOOD COUNT 7.2 10^3/uL (4.5-11.0)
--- NOTE | 2018-09-05 12:07 | CP.CCUPN ---
<Elie Herr - Last Filed: 09/05/18 12:11> CCU Subjective - Physician Review Subjective (Free Text): Elie Herr PGY1 Progress Note for ICU Patient was seen and examined at bedside this morning. Patient is AAOx3. He denies chest pain, shortness of breath, abdominal pain, n/v/d. Vital signs are stable. No acute overnight events. Currently patient is sitting up in bed respirating on room air without difficulty. Most recent Hgb is 7.5. CCU Objective - Vital Signs / Intake & Output Vital Signs (Last 4 hours): Vital Signs BP 09/05/18 09:32 155/94 H Intake and Output (Last 8hrs): Intake & Output 09/04/18 09/05/18 09/05/18 22:59 06:59 14:59 Intake Total 1350 350 Output Total 5150 1250 Balance -3800 -900 Intake: IV 350 350 Right Antecubital 150 antibiotics 100 350 protonix 100 Oral 1000 Output: Urine 5150 1250 Urethral (Lugo) 5150 1250 Other: # Bowel Movements 1 - Physical Exam Head: Positive for: Atraumatic, Normocephalic Pupils: Positive for: PERRL Extroacular Muscles: Positive for: EOMI Conjunctiva: Positive for: Normal Mouth: Positive for: Moist Mucous Membranes Neck: Positive for: Normal Range of Motion Respiratory/Chest: Positive for: Rales. Negative for: Clear to Auscultation, Good Air Exchange, Respiratory Distress, Accessory Muscle Use, Wheezes, Retracting, Rhonchi, Tachypneic Cardiovascular: Positive for: Regular Rate and Rhythm, Normal S1, S2. Negative for: Murmurs Abdomen: Positive for: Normal Bowel Sounds, Mass/Organomegaly (Hepatomegaly ). Negative for: Tenderness, Distention, Peritoneal Signs, Rebound, Guarding Genitourinary Male: Positive for: Other (Lugo in place. ) Back: Positive for: Normal Inspection Upper Extremity: Positive for: Normal Inspection. Negative for: Cyanosis, Edema Lower Extremity: Positive for: Other (B/L lower extremity stasis dermatitis/scaly dry skin noted). Negative for: Edema Neurological: Positive for: Speech Normal, Motor Func Grossly Intact Skin: Positive for: Warm, Dry, Normal Color. Negative for: Rashes Psychiatric: Positive for: Alert, Oriented x 3 - Medications Active Medications: Active Medications Generic Name Dose Route Start Last Admin Trade Name Freq PRN Reason Stop Dose Admin Albuterol/Ipratropium 3 ml 08/26/18 02:00 09/05/18 08:05 Duoneb 3 Mg/0.5 Mg (3 Ml) Ud IH 3 ml [id number] TRAVIS Administration Albuterol/Ipratropium 3 ml 08/25/18 20:01 08/25/18 23:35 Duoneb 3 Mg/0.5 Mg (3 Ml) Ud IH 3 ml Q2H PRN Administration Shortness of Breath Atorvastatin Calcium 80 mg 08/25/18 20:15 09/04/18 18:27 Lipitor PO 80 mg DIN TRAVIS Administration Carvedilol 12.5 mg 08/25/18 21:15 08/30/18 11:14 Coreg PO 12.5 mg BID TRAVIS Administration Docusate Sodium 100 mg 08/26/18 10:00 09/05/18 09:32 Colace PO 100 mg BID TRAVIS Administration Doxycycline Hyclate 100 mg 09/01/18 10:00 09/05/18 10:00 Doryx PO 09/06/18 10:01 100 mg Q12 TRAVIS Administration Protocol Furosemide 40 mg 09/05/18 10:00 09/05/18 09:32 Lasix PO 40 mg DAILY TRAVIS Administration Glipizide 5 mg 08/29/18 10:45 08/31/18 07:45 Glucotrol PO Not Given ACB TRAVIS Cefepime HCl 1 gm in 100 mls @ 100 mls/hr 09/01/18 14:00 09/05/18 06:04 Maxipime 1gm IVPB 09/10/18 14:01 100 mls/hr Q8 TRAVIS Administration Protocol Potassium Phosphate 15 mmole/ 255 mls @ 42.5 mls/hr 09/05/18 10:45 Sodium Chloride IVPB 09/05/18 16:44 ONCE ONE Insulin Human Lispro 0 units 09/04/18 00:00 09/05/18 06:18 Humalog High SC Not Given Q6 TRAVIS Protocol Lactulose 20 gm 08/31/18 14:00 09/01/18 17:03 Enulose PO 20 gm TID TRAVIS Administration Losartan Potassium 25 mg 08/27/18 12:30 08/30/18 11:14 Cozaar PO 25 mg DAILY TRAVIS Administration Pantoprazole Sodium 40 mg 09/04/18 22:00 09/05/18 09:32 Protonix Inj IVP 40 mg Q12 TRAVIS Administration Rifaximin 550 mg 08/31/18 10:00 09/05/18 09:32 Xifaxan PO 550 mg BID TRAVIS Administration Protocol - Patient Studies Lab Studies: Microbiology Studies 08/31/18 17:30 Blood Culture - Preliminary Blood NO GROWTH AFTER 4 DAYS 08/31/18 17:00 Blood Culture - Preliminary Blood NO GROWTH AFTER 4 DAYS Lab Studies 09/05/18 09/05/18 09/05/18 Range/Units 11:50 11:17 08:35 WBC 7.2 (4.5-11.0) 10^3/uL RBC 2.65 L (3.5-6.1) 10^6/uL Hgb 7.5 L (14.0-18.0) g/dL Hct 23.7 L (42.0-52.0) % MCV 89.4 (80.0-105.0) fl MCH 28.3 (25.0-35.0) pg MCHC 31.6 (31.0-37.0) g/dl RDW 19.0 H (11.5-14.5) % Plt Count 92 L (120.0-450.0) 10^3/uL MPV 9.5 (7.0-11.0) fl Gran % 69.8 H (50.0-68.0) % Lymph % (Auto) 20.7 L (22.0-35.0) % Gage % (Auto) 7.6 H (1.0-6.0) % Eos % (Auto) 1.9 (1.5-5.0) % Baso % (Auto) 0.0 (0.0-3.0) % Gran # 5.04 (1.4-6.5) Lymph # (Auto) 1.5 (1.2-3.4) Gage # (Auto) 0.6 (0.1-0.6) Eos # (Auto) 0.1 (0.0-0.7) Baso # (Auto) 0.00 (0.0-2.0) K/mm3 PT (9.4-12.5) SECONDS INR Sodium (132-148) mmol/L Potassium (3.6-5.0) mmol/L Chloride (98-107) mmol/L Carbon Dioxide (21-33) mmol/L Anion Gap (10-20) BUN (7-21) mg/dL Creatinine (0.8-1.5) mg/dl Est GFR ( Amer) Est GFR (Non-Af Amer) POC Glucose (mg/dL) 198 H (65-110) mg/dL Random Glucose (70-110) mg/dL Calcium (8.4-10.5) mg/dL Phosphorus 2.4 L (2.5-4.5) mg/dL Magnesium 1.8 (1.7-2.2) mg/dL Total Bilirubin (0.2-1.3) mg/dL AST (17-59) U/L ALT (7-56) U/L Alkaline Phosphatase (38-126) U/L Total Protein (5.8-8.3) g/dL Albumin (3.0-4.8) g/dL Globulin gm/dL Albumin/Globulin Ratio (1.1-1.8) Crossmatch 09/05/18 09/05/18 09/05/18 Range/Units 07:07 06:13 06:00 WBC (4.5-11.0) 10^3/uL RBC (3.5-6.1) 10^6/uL Hgb (14.0-18.0) g/dL Hct (42.0-52.0) % MCV (80.0-105.0) fl MCH (25.0-35.0) pg MCHC (31.0-37.0) g/dl RDW (11.5-14.5) % Plt Count (120.0-450.0) 10^3/uL MPV (7.0-11.0) fl Gran % (50.0-68.0) % Lymph % (Auto) (22.0-35.0) % Gage % (Auto) (1.0-6.0) % Eos % (Auto) (1.5-5.0) % Baso % (Auto) (0.0-3.0) % Gran # (1.4-6.5) Lymph # (Auto) (1.2-3.4) Gage # (Auto) (0.1-0.6) Eos # (Auto) (0.0-0.7) Baso # (Auto) (0.0-2.0) K/mm3 PT (9.4-12.5) SECONDS INR Sodium 148 (132-148) mmol/L Potassium 3.1 L (3.6-5.0) mmol/L Chloride 108 H (98-107) mmol/L Carbon Dioxide 35 H (21-33) mmol/L Anion Gap 9 L (10-20) BUN 26 H (7-21) mg/dL Creatinine 0.9 (0.8-1.5) mg/dl Est GFR ( Amer) > 60 Est GFR (Non-Af Amer) > 60 POC Glucose (mg/dL) 114 H 114 H (65-110) mg/dL Random Glucose 116 H (70-110) mg/dL Calcium 8.7 (8.4-10.5) mg/dL Phosphorus (2.5-4.5) mg/dL Magnesium (1.7-2.2) mg/dL Total Bilirubin 1.6 H (0.2-1.3) mg/dL AST 40 (17-59) U/L ALT 27 (7-56) U/L Alkaline Phosphatase 194 H D (38-126) U/L Total Protein 6.3 (5.8-8.3) g/dL Albumin 3.3 (3.0-4.8) g/dL Globulin 3.0 gm/dL Albumin/Globulin Ratio 1.1 (1.1-1.8) Crossmatch 09/05/18 09/05/18 09/04/18 Range/Units 06:00 06:00 23:31 WBC 7.7 (4.5-11.0) 10^3/uL RBC 2.68 L (3.5-6.1) 10^6/uL Hgb 7.6 L (14.0-18.0) g/dL Hct 23.9 L (42.0-52.0) % MCV 89.2 (80.0-105.0) fl MCH 28.4 (25.0-35.0) pg MCHC 31.8 (31.0-37.0) g/dl RDW 18.6 H (11.5-14.5) % Plt Count 94 L (120.0-450.0) 10^3/uL MPV 10.0 (7.0-11.0) fl Gran % 71.1 H (50.0-68.0) % Lymph % (Auto) 22.6 (22.0-35.0) % Gage % (Auto) 5.0 (1.0-6.0) % Eos % (Auto) 1.3 L (1.5-5.0) % Baso % (Auto) 0.0 (0.0-3.0) % Gran # 5.50 (1.4-6.5) Lymph # (Auto) 1.8 (1.2-3.4) Gage # (Auto) 0.4 (0.1-0.6) Eos # (Auto) 0.1 (0.0-0.7) Baso # (Auto) 0.00 (0.0-2.0) K/mm3 PT 15.1 H (9.4-12.5) SECONDS INR 1.31 Sodium (132-148) mmol/L Potassium (3.6-5.0) mmol/L Chloride (98-107) mmol/L Carbon Dioxide (21-33) mmol/L Anion Gap (10-20) BUN (7-21) mg/dL Creatinine (0.8-1.5) mg/dl Est GFR ( Amer) Est GFR (Non-Af Amer) POC Glucose (mg/dL) 137 H (65-110) mg/dL Random Glucose (70-110) mg/dL Calcium (8.4-10.5) mg/dL Phosphorus (2.5-4.5) mg/dL Magnesium (1.7-2.2) mg/dL Total Bilirubin (0.2-1.3) mg/dL AST (17-59) U/L ALT (7-56) U/L Alkaline Phosphatase (38-126) U/L Total Protein (5.8-8.3) g/dL Albumin (3.0-4.8) g/dL Globulin gm/dL Albumin/Globulin Ratio (1.1-1.8) Crossmatch 09/04/18 09/04/18 09/04/18 Range/Units 19:30 15:47 12:30 WBC 8.2 (4.5-11.0) 10^3/uL RBC 2.83 L (3.5-6.1) 10^6/uL Hgb 8.1 L (14.0-18.0) g/dL Hct 25.0 L (42.0-52.0) % MCV 88.3 (80.0-105.0) fl MCH 28.6 (25.0-35.0) pg MCHC 32.4 (31.0-37.0) g/dl RDW 18.1 H (11.5-14.5) % Plt Count 94 L (120.0-450.0) 10^3/uL MPV 9.2 (7.0-11.0) fl Gran % (50.0-68.0) % Lymph % (Auto) (22.0-35.0) % Gage % (Auto) (1.0-6.0) % Eos % (Auto) (1.5-5.0) % Baso % (Auto) (0.0-3.0) % Gran # (1.4-6.5) Lymph # (Auto) (1.2-3.4) Gage # (Auto) (0.1-0.6) Eos # (Auto) (0.0-0.7) Baso # (Auto) (0.0-2.0) K/mm3 PT (9.4-12.5) SECONDS INR Sodium 148 (132-148) mmol/L Potassium 3.2 L (3.6-5.0) mmol/L Chloride 106 (98-107) mmol/L Carbon Dioxide 35 H (21-33) mmol/L Anion Gap 10 (10-20) BUN 34 H (7-21) mg/dL Creatinine 0.9 (0.8-1.5) mg/dl Est GFR ( Amer) > 60 Est GFR (Non-Af Amer) > 60 POC Glucose (mg/dL) 112 H (65-110) mg/dL Random Glucose 121 H (70-110) mg/dL Calcium 9.2 (8.4-10.5) mg/dL Phosphorus (2.5-4.5) mg/dL Magnesium (1.7-2.2) mg/dL Total Bilirubin (0.2-1.3) mg/dL AST (17-59) U/L ALT (7-56) U/L Alkaline Phosphatase (38-126) U/L Total Protein (5.8-8.3) g/dL Albumin (3.0-4.8) g/dL Globulin gm/dL Albumin/Globulin Ratio (1.1-1.8) Crossmatch 09/04/18 09/02/18 Range/Units 12:30 07:45 WBC 9.5 (4.5-11.0) 10^3/uL RBC 3.00 L (3.5-6.1) 10^6/uL Hgb 8.6 L (14.0-18.0) g/dL Hct 26.7 L (42.0-52.0) % MCV 89.0 (80.0-105.0) fl MCH 28.7 (25.0-35.0) pg MCHC 32.2 (31.0-37.0) g/dl RDW 17.7 H (11.5-14.5) % Plt Count 101 L (120.0-450.0) 10^3/uL MPV 10.1 (7.0-11.0) fl Gran % (50.0-68.0) % Lymph % (Auto) (22.0-35.0) % Gage % (Auto) (1.0-6.0) % Eos % (Auto) (1.5-5.0) % Baso % (Auto) (0.0-3.0) % Gran # (1.4-6.5) Lymph # (Auto) (1.2-3.4) Gage # (Auto) (0.1-0.6) Eos # (Auto) (0.0-0.7) Baso # (Auto) (0.0-2.0) K/mm3 PT (9.4-12.5) SECONDS INR Sodium (132-148) mmol/L Potassium (3.6-5.0) mmol/L Chloride (98-107) mmol/L Carbon Dioxide (21-33) mmol/L Anion Gap (10-20) BUN (7-21) mg/dL Creatinine (0.8-1.5) mg/dl Est GFR ( Amer) Est GFR (Non-Af Amer) POC Glucose (mg/dL) (65-110) mg/dL Random Glucose (70-110) mg/dL Calcium (8.4-10.5) mg/dL Phosphorus (2.5-4.5) mg/dL Magnesium (1.7-2.2) mg/dL Total Bilirubin (0.2-1.3) mg/dL AST (17-59) U/L ALT (7-56) U/L Alkaline Phosphatase (38-126) U/L Total Protein (5.8-8.3) g/dL Albumin (3.0-4.8) g/dL Globulin gm/dL Albumin/Globulin Ratio (1.1-1.8) Crossmatch See Detail Laboratory Results - last 24 hr 09/02/18 09/04/18 09/04/18 07:45 12:30 12:30 WBC 9.5 RBC 3.00 L Hgb 8.6 L Hct 26.7 L MCV 89.0 MCH 28.7 MCHC 32.2 RDW 17.7 H Plt Count 101 L MPV 10.1 Gran % Lymph % (Auto) Gage % (Auto) Eos % (Auto) Baso % (Auto) Gran # Lymph # (Auto) Gage # (Auto) Eos # (Auto) Baso # (Auto) PT INR Sodium 148 Potassium 3.2 L Chloride 106 Carbon Dioxide 35 H Anion Gap 10 BUN 34 H Creatinine 0.9 Est GFR ( Amer) > 60 Est GFR (Non-Af Amer) > 60 POC Glucose (mg/dL) Random Glucose 121 H Calcium 9.2 Phosphorus Magnesium Total Bilirubin AST ALT Alkaline Phosphatase Total Protein Albumin Globulin Albumin/Globulin Ratio Crossmatch See Detail 09/04/18 09/04/18 09/04/18 15:47 19:30 23:31 WBC 8.2 RBC 2.83 L Hgb 8.1 L Hct 25.0 L MCV 88.3 MCH 28.6 MCHC 32.4 RDW 18.1 H Plt Count 94 L MPV 9.2 Gran % Lymph % (Auto) Gage % (Auto) Eos % (Auto) Baso % (Auto) Gran # Lymph # (Auto) Gage # (Auto) Eos # (Auto) Baso # (Auto) PT INR Sodium Potassium Chloride Carbon Dioxide Anion Gap BUN Creatinine Est GFR ( Amer) Est GFR (Non-Af Amer) POC Glucose (mg/dL) 112 H 137 H Random Glucose Calcium Phosphorus Magnesium Total Bilirubin AST ALT Alkaline Phosphatase Total Protein Albumin Globulin Albumin/Globulin Ratio Crossmatch 09/05/18 09/05/18 09/05/18 06:00 06:00 06:00 WBC 7.7 RBC 2.68 L Hgb 7.6 L Hct 23.9 L MCV 89.2 MCH 28.4 MCHC 31.8 RDW 18.6 H Plt Count 94 L MPV 10.0 Gran % 71.1 H Lymph % (Auto) 22.6 Gage % (Auto) 5.0 Eos % (Auto) 1.3 L Baso % (Auto) 0.0 Gran # 5.50 Lymph # (Auto) 1.8 Gage # (Auto) 0.4 Eos # (Auto) 0.1 Baso # (Auto) 0.00 PT 15.1 H INR 1.31 Sodium 148 Potassium 3.1 L Chloride 108 H Carbon Dioxide 35 H Anion Gap 9 L BUN 26 H Creatinine 0.9 Est GFR ( Amer) > 60 Est GFR (Non-Af Amer) > 60 POC Glucose (mg/dL) Random Glucose 116 H Calcium 8.7 Phosphorus Magnesium Total Bilirubin 1.6 H AST 40 ALT 27 Alkaline Phosphatase 194 H D Total Protein 6.3 Albumin 3.3 Globulin 3.0 Albumin/Globulin Ratio 1.1 Crossmatch 09/05/18 09/05/18 09/05/18 06:13 07:07 08:35 WBC RBC Hgb Hct MCV MCH MCHC RDW Plt Count MPV Gran % Lymph % (Auto) Gage % (Auto) Eos % (Auto) Baso % (Auto) Gran # Lymph # (Auto) Gage # (Auto) Eos # (Auto) Baso # (Auto) PT INR Sodium Potassium Chloride Carbon Dioxide Anion Gap BUN Creatinine Est GFR ( Amer) Est GFR (Non-Af Amer) POC Glucose (mg/dL) 114 H 114 H Random Glucose Calcium Phosphorus 2.4 L Magnesium 1.8 Total Bilirubin AST ALT Alkaline Phosphatase Total Protein Albumin Globulin Albumin/Globulin Ratio Crossmatch 09/05/18 09/05/18 11:17 11:50 WBC 7.2 RBC 2.65 L Hgb 7.5 L Hct 23.7 L MCV 89.4 MCH 28.3 MCHC 31.6 RDW 19.0 H Plt Count 92 L MPV 9.5 Gran % 69.8 H Lymph % (Auto) 20.7 L Gage % (Auto) 7.6 H Eos % (Auto) 1.9 Baso % (Auto) 0.0 Gran # 5.04 Lymph # (Auto) 1.5 Gage # (Auto) 0.6 Eos # (Auto) 0.1 Baso # (Auto) 0.00 PT INR Sodium Potassium Chloride Carbon Dioxide Anion Gap BUN Creatinine Est GFR ( Amer) Est GFR (Non-Af Amer) POC Glucose (mg/dL) 198 H Random Glucose Calcium Phosphorus Magnesium Total Bilirubin AST ALT Alkaline Phosphatase Total Protein Albumin Globulin Albumin/Globulin Ratio Crossmatch Fingerstick Blood Sugar Results: 114 Review of Systems - Review of Systems Review of Systems: 12 point ROS completed and negative except as described in HPI. Critical Care Progress Note - Extremities/Vascular Does the Patient have a Lugo Catheter?: Yes Does the Patient need a Lugo Catheter?: Yes - Nutrition Nutrition: Nutrition Category Date Time Status Liquid Diet [DIET] Diets 09/05/18 Breakfast Ordered Assessment/Plan - Assessment and Plan (Free Text) Assessment: Patient is a 53 y/o M with PMHx HIV (not on HAART), COPD, CHF-rEF (ECHO on 05/10 showing EF 39% with septal hypokinesis), Biventricular HF, CAD s/p PCI, DM, HTN, HLD who presented to [facility] for worsening shortness of breath for 5 days in duration. Patient admitted and treated for COPD vs CHF exacerbation with fluid overload. ICU was consulted for evaluation of upper GI bleed with new onset anemia requiring multiple blood transfusions. Patient is s/p endoscopy x2 and was found to have multiple non-bleeding esophageal/gastric ulcers with a bleeding duodenal ulcer - s/p epi injection and clip. Repeat Hgb ordered and CT abdomen with PO contrast ordered. Plan: Neuro: - Currently AAOx3 on interview without confusion, as compared to prior documentation. - C/w rifaximin - Maintain normothermia Pulm: - Treated for COPD vs CHF exacerbation with fluid overload on the floor - Switched to Lasix 40mg PO daily - C/w nasal cannula as needed - Saturating well and no acute respiratory distress. - Maintain SaO2 > 92% - Monitor ins/outs Cardio: - Maintain MAP > 65 - Echo (8/21): EF 39% with septal hypokinesis - Cardio is on consult. Recs appreciated - Hx CHF-rEF, Biventricular HF, HTN, DM, CAD (s/p PCI), HLD GI: - Upper GI bleed 2/2 multiple non-bleeding ulcers and bleeding duodenal ulcer s/p endoscopy x2 with epi injection and clip placement - Repeat endoscopy (09/02) showed bleeding duodenal ulcer - s/p injection and clip placement - Bleeding scan was positive - Currently begun on CLD- will monitor - continue to monitor H/H - Protonix drip discontinued. PTX 40 mg IV BID started - Surgery consulted. Recs appreciated. F/u CT abdomen/pelvis PO contrast (09/05) - GI is on consult. Recs appreciated. Heme: - Most recent INR is 1.31 - AM Hgb is 7.6. Repeat Hgb 7.5. CBC q6. Lactulose on hold. - Thrombocytopenia 92. Avoid thrombocytopenic-causing agents like Heparin, Sulfa -containing antibiotics. - c/w transfusions as needed. Total transfusions during hospital course thus far: x13 pRBC, x2 FFP, and x1 platelets - DVT ppx with SCDs Renal: - High Sodium, High BUN secondary to underlying liver cirrhosis - Hypokelamia - repleted - Albumin supplementation discontinued per GI recs - Lugo in place - Monitor strict Ins/outs Endo: - ISS (high) - Accuchecks q4 - Maintain blood glucose within 140-180 range - Hx DM ID: - remains on cefepime and doxycycline (Day 5 of 7). Given afebrile, no leukocytosis, and negative procal, awaiting ID recs about possible de-escalation of antibiotics. - ID is on consult. Recs appreciated Patient seen, case reviewed and plan approved by Dr. Sah Mcintyre. Elie Herr, PGY-1 <Alberto Mcintyre - Last Filed: 09/05/18 16:42> CCU Objective - Vital Signs / Intake & Output Vital Signs (Last 4 hours): Vital Signs Temp Pulse Resp BP Pulse Ox 09/05/18 16:22 98 09/05/18 16:00 99.8 F H 98 H 22 112/43 L 09/05/18 15:00 95 H 22 149/67 09/05/18 13:00 109 H 20 138/76 Intake and Output (Last 8hrs): Intake & Output 09/05/18 09/05/18 09/05/18 06:59 14:59 22:59 Intake Total 350 Output Total 1250 Balance -900 Intake: IV 350 antibiotics 350 Output: Urine 1250 Urethral (Lugo) 1250 - Medications Active Medications: Active Medications Generic Name Dose Route Start Last Admin Trade Name Freq PRN Reason Stop Dose Admin Albuterol/Ipratropium 3 ml 08/26/18 02:00 09/05/18 08:05 Duoneb 3 Mg/0.5 Mg (3 Ml) Ud IH 3 ml [id number] TRAVIS Administration Albuterol/Ipratropium 3 ml 08/25/18 20:01 08/25/18 23:35 Duoneb 3 Mg/0.5 Mg (3 Ml) Ud IH 3 ml Q2H PRN Administration Shortness of Breath Atorvastatin Calcium 80 mg 08/25/18 20:15 09/04/18 18:27 Lipitor PO 80 mg DIN TRAVIS Administration Carvedilol 12.5 mg 08/25/18 21:15 08/30/18 11:14 Coreg PO 12.5 mg BID TRAVIS Administration Docusate Sodium 100 mg 08/26/18 10:00 09/05/18 09:32 Colace PO 100 mg BID TRAVIS Administration Doxycycline Hyclate 100 mg 09/01/18 10:00 09/05/18 10:00 Doryx PO 09/06/18 10:01 100 mg Q12 TRAVIS Administration Protocol Furosemide 40 mg 09/05/18 10:00 09/05/18 09:32 Lasix PO 40 mg DAILY TRAVIS Administration Glipizide 5 mg 08/29/18 10:45 08/31/18 07:45 Glucotrol PO Not Given ACB TRAVIS Cefepime HCl 1 gm in 100 mls @ 100 mls/hr 09/01/18 14:00 09/05/18 14:30 Maxipime 1gm IVPB 09/10/18 14:01 100 mls/hr Q8 TRAVIS Administration Protocol Potassium Phosphate 15 mmole/ 255 mls @ 42.5 mls/hr 09/05/18 10:45 09/05/18 14:27 Sodium Chloride IVPB 09/05/18 16:44 42.5 mls/hr ONCE ONE Administration Insulin Human Lispro 0 units 09/04/18 00:00 09/05/18 14:28 Humalog High SC 2 u Q6 TRAVIS Administration Protocol Lactulose 20 gm 08/31/18 14:00 09/01/18 17:03 Enulose PO 20 gm TID TRAVIS Administration Losartan Potassium 25 mg 08/27/18 12:30 08/30/18 11:14 Cozaar PO 25 mg DAILY TRAVIS Administration Pantoprazole Sodium 40 mg 09/04/18 22:00 09/05/18 09:32 Protonix Inj IVP 40 mg Q12 TRAVIS Administration Rifaximin 550 mg 08/31/18 10:00 09/05/18 09:32 Xifaxan PO 550 mg BID TRAVIS Administration Protocol - Patient Studies Lab Studies: Microbiology Studies 08/31/18 17:30 Blood Culture - Preliminary Blood NO GROWTH AFTER 4 DAYS 08/31/18 17:00 Blood Culture - Preliminary Blood NO GROWTH AFTER 4 DAYS Lab Studies 09/05/18 09/05/18 09/05/18 Range/Units 14:30 11:50 11:17 WBC 7.2 (4.5-11.0) 10^3/uL RBC 2.65 L (3.5-6.1) 10^6/uL Hgb 7.5 L (14.0-18.0) g/dL Hct 23.7 L (42.0-52.0) % MCV 89.4 (80.0-105.0) fl MCH 28.3 (25.0-35.0) pg MCHC 31.6 (31.0-37.0) g/dl RDW 19.0 H (11.5-14.5) % Plt Count 92 L (120.0-450.0) 10^3/uL MPV 9.5 (7.0-11.0) fl Gran % 69.8 H (50.0-68.0) % Lymph % (Auto) 20.7 L (22.0-35.0) % Gage % (Auto) 7.6 H (1.0-6.0) % Eos % (Auto) 1.9 (1.5-5.0) % Baso % (Auto) 0.0 (0.0-3.0) % Gran # 5.04 (1.4-6.5) Lymph # (Auto) 1.5 (1.2-3.4) Gage # (Auto) 0.6 (0.1-0.6) Eos # (Auto) 0.1 (0.0-0.7) Baso # (Auto) 0.00 (0.0-2.0) K/mm3 PT (9.4-12.5) SECONDS INR Sodium (132-148) mmol/L Potassium (3.6-5.0) mmol/L Chloride (98-107) mmol/L Carbon Dioxide (21-33) mmol/L Anion Gap (10-20) BUN (7-21) mg/dL Creatinine (0.8-1.5) mg/dl Est GFR ( Amer) Est GFR (Non-Af Amer) POC Glucose (mg/dL) 198 H (65-110) mg/dL Random Glucose (70-110) mg/dL Calcium (8.4-10.5) mg/dL Phosphorus (2.5-4.5) mg/dL Magnesium (1.7-2.2) mg/dL Total Bilirubin (0.2-1.3) mg/dL AST (17-59) U/L ALT (7-56) U/L Alkaline Phosphatase (38-126) U/L Total Protein (5.8-8.3) g/dL Albumin (3.0-4.8) g/dL Globulin gm/dL Albumin/Globulin Ratio (1.1-1.8) Blood Type A POSITIVE Antibody Screen Negative Crossmatch See Detail BBK History Checked Patient has bt 09/05/18 09/05/18 09/05/18 Range/Units 08:35 07:07 06:13 WBC (4.5-11.0) 10^3/uL RBC (3.5-6.1) 10^6/uL Hgb (14.0-18.0) g/dL Hct (42.0-52.0) % MCV (80.0-105.0) fl MCH (25.0-35.0) pg MCHC (31.0-37.0) g/dl RDW (11.5-14.5) % Plt Count (120.0-450.0) 10^3/uL MPV (7.0-11.0) fl Gran % (50.0-68.0) % Lymph % (Auto) (22.0-35.0) % Gage % (Auto) (1.0-6.0) % Eos % (Auto) (1.5-5.0) % Baso % (Auto) (0.0-3.0) % Gran # (1.4-6.5) Lymph # (Auto) (1.2-3.4) Gage # (Auto) (0.1-0.6) Eos # (Auto) (0.0-0.7) Baso # (Auto) (0.0-2.0) K/mm3 PT (9.4-12.5) SECONDS INR Sodium (132-148) mmol/L Potassium (3.6-5.0) mmol/L Chloride (98-107) mmol/L Carbon Dioxide (21-33) mmol/L Anion Gap (10-20) BUN (7-21) mg/dL Creatinine (0.8-1.5) mg/dl Est GFR ( Amer) Est GFR (Non-Af Amer) POC Glucose (mg/dL) 114 H 114 H (65-110) mg/dL Random Glucose (70-110) mg/dL Calcium (8.4-10.5) mg/dL Phosphorus 2.4 L (2.5-4.5) mg/dL Magnesium 1.8 (1.7-2.2) mg/dL Total Bilirubin (0.2-1.3) mg/dL AST (17-59) U/L ALT (7-56) U/L Alkaline Phosphatase (38-126) U/L Total Protein (5.8-8.3) g/dL Albumin (3.0-4.8) g/dL Globulin gm/dL Albumin/Globulin Ratio (1.1-1.8) Blood Type Antibody Screen Crossmatch BBK History Checked 09/05/18 09/05/18 09/05/18 Range/Units 06:00 06:00 06:00 WBC 7.7 (4.5-11.0) 10^3/uL RBC 2.68 L (3.5-6.1) 10^6/uL Hgb 7.6 L (14.0-18.0) g/dL Hct 23.9 L (42.0-52.0) % MCV 89.2 (80.0-105.0) fl MCH 28.4 (25.0-35.0) pg MCHC 31.8 (31.0-37.0) g/dl RDW 18.6 H (11.5-14.5) % Plt Count 94 L (120.0-450.0) 10^3/uL MPV 10.0 (7.0-11.0) fl Gran % 71.1 H (50.0-68.0) % Lymph % (Auto) 22.6 (22.0-35.0) % Gage % (Auto) 5.0 (1.0-6.0) % Eos % (Auto) 1.3 L (1.5-5.0) % Baso % (Auto) 0.0 (0.0-3.0) % Gran # 5.50 (1.4-6.5) Lymph # (Auto) 1.8 (1.2-3.4) Gage # (Auto) 0.4 (0.1-0.6) Eos # (Auto) 0.1 (0.0-0.7) Baso # (Auto) 0.00 (0.0-2.0) K/mm3 PT 15.1 H (9.4-12.5) SECONDS INR 1.31 Sodium 148 (132-148) mmol/L Potassium 3.1 L (3.6-5.0) mmol/L Chloride 108 H (98-107) mmol/L Carbon Dioxide 35 H (21-33) mmol/L Anion Gap 9 L (10-20) BUN 26 H (7-21) mg/dL Creatinine 0.9 (0.8-1.5) mg/dl Est GFR ( Amer) > 60 Est GFR (Non-Af Amer) > 60 POC Glucose (mg/dL) (65-110) mg/dL Random Glucose 116 H (70-110) mg/dL Calcium 8.7 (8.4-10.5) mg/dL Phosphorus (2.5-4.5) mg/dL Magnesium (1.7-2.2) mg/dL Total Bilirubin 1.6 H (0.2-1.3) mg/dL AST 40 (17-59) U/L ALT 27 (7-56) U/L Alkaline Phosphatase 194 H D (38-126) U/L Total Protein 6.3 (5.8-8.3) g/dL Albumin 3.3 (3.0-4.8) g/dL Globulin 3.0 gm/dL Albumin/Globulin Ratio 1.1 (1.1-1.8) Blood Type Antibody Screen Crossmatch BBK History Checked 09/04/18 09/04/18 09/04/18 Range/Units 23:31 19:30 15:47 WBC 8.2 (4.5-11.0) 10^3/uL RBC 2.83 L (3.5-6.1) 10^6/uL Hgb 8.1 L (14.0-18.0) g/dL Hct 25.0 L (42.0-52.0) % MCV 88.3 (80.0-105.0) fl MCH 28.6 (25.0-35.0) pg MCHC 32.4 (31.0-37.0) g/dl RDW 18.1 H (11.5-14.5) % Plt Count 94 L (120.0-450.0) 10^3/uL MPV 9.2 (7.0-11.0) fl Gran % (50.0-68.0) % Lymph % (Auto) (22.0-35.0) % Gage % (Auto) (1.0-6.0) % Eos % (Auto) (1.5-5.0) % Baso % (Auto) (0.0-3.0) % Gran # (1.4-6.5) Lymph # (Auto) (1.2-3.4) Gage # (Auto) (0.1-0.6) Eos # (Auto) (0.0-0.7) Baso # (Auto) (0.0-2.0) K/mm3 PT (9.4-12.5) SECONDS INR Sodium (132-148) mmol/L Potassium (3.6-5.0) mmol/L Chloride (98-107) mmol/L Carbon Dioxide (21-33) mmol/L Anion Gap (10-20) BUN (7-21) mg/dL Creatinine (0.8-1.5) mg/dl Est GFR ( Amer) Est GFR (Non-Af Amer) POC Glucose (mg/dL) 137 H 112 H (65-110) mg/dL Random Glucose (70-110) mg/dL Calcium (8.4-10.5) mg/dL Phosphorus (2.5-4.5) mg/dL Magnesium (1.7-2.2) mg/dL Total Bilirubin (0.2-1.3) mg/dL AST (17-59) U/L ALT (7-56) U/L Alkaline Phosphatase (38-126) U/L Total Protein (5.8-8.3) g/dL Albumin (3.0-4.8) g/dL Globulin gm/dL Albumin/Globulin Ratio (1.1-1.8) Blood Type Antibody Screen Crossmatch BBK History Checked 09/02/18 Range/Units 07:45 WBC (4.5-11.0) 10^3/uL RBC (3.5-6.1) 10^6/uL Hgb (14.0-18.0) g/dL Hct (42.0-52.0) % MCV (80.0-105.0) fl MCH (25.0-35.0) pg MCHC (31.0-37.0) g/dl RDW (11.5-14.5) % Plt Count (120.0-450.0) 10^3/uL MPV (7.0-11.0) fl Gran % (50.0-68.0) % Lymph % (Auto) (22.0-35.0) % Gage % (Auto) (1.0-6.0) % Eos % (Auto) (1.5-5.0) % Baso % (Auto) (0.0-3.0) % Gran # (1.4-6.5) Lymph # (Auto) (1.2-3.4) Gage # (Auto) (0.1-0.6) Eos # (Auto) (0.0-0.7) Baso # (Auto) (0.0-2.0) K/mm3 PT (9.4-12.5) SECONDS INR Sodium (132-148) mmol/L Potassium (3.6-5.0) mmol/L Chloride (98-107) mmol/L Carbon Dioxide (21-33) mmol/L Anion Gap (10-20) BUN (7-21) mg/dL Creatinine (0.8-1.5) mg/dl Est GFR ( Amer) Est GFR (Non-Af Amer) POC Glucose (mg/dL) (65-110) mg/dL Random Glucose (70-110) mg/dL Calcium (8.4-10.5) mg/dL Phosphorus (2.5-4.5) mg/dL Magnesium (1.7-2.2) mg/dL Total Bilirubin (0.2-1.3) mg/dL AST (17-59) U/L ALT (7-56) U/L Alkaline Phosphatase (38-126) U/L Total Protein (5.8-8.3) g/dL Albumin (3.0-4.8) g/dL Globulin gm/dL Albumin/Globulin Ratio (1.1-1.8) Blood Type Antibody Screen Crossmatch See Detail BBK History Checked Laboratory Results - last 24 hr 09/02/18 09/04/18 09/04/18 07:45 15:47 19:30 WBC 8.2 RBC 2.83 L Hgb 8.1 L Hct 25.0 L MCV 88.3 MCH 28.6 MCHC 32.4 RDW 18.1 H Plt Count 94 L MPV 9.2 Gran % Lymph % (Auto) Gage % (Auto) Eos % (Auto) Baso % (Auto) Gran # Lymph # (Auto) Gage # (Auto) Eos # (Auto) Baso # (Auto) PT INR Sodium Potassium Chloride Carbon Dioxide Anion Gap BUN Creatinine Est GFR ( Amer) Est GFR (Non-Af Amer) POC Glucose (mg/dL) 112 H Random Glucose Calcium Phosphorus Magnesium Total Bilirubin AST ALT Alkaline Phosphatase Total Protein Albumin Globulin Albumin/Globulin Ratio Blood Type Antibody Screen Crossmatch See Detail BBK History Checked 09/04/18 09/05/18 09/05/18 23:31 06:00 06:00 WBC 7.7 RBC 2.68 L Hgb 7.6 L Hct 23.9 L MCV 89.2 MCH 28.4 MCHC 31.8 RDW 18.6 H Plt Count 94 L MPV 10.0 Gran % 71.1 H Lymph % (Auto) 22.6 Gage % (Auto) 5.0 Eos % (Auto) 1.3 L Baso % (Auto) 0.0 Gran # 5.50 Lymph # (Auto) 1.8 Gage # (Auto) 0.4 Eos # (Auto) 0.1 Baso # (Auto) 0.00 PT 15.1 H INR 1.31 Sodium Potassium Chloride Carbon Dioxide Anion Gap BUN Creatinine Est GFR ( Amer) Est GFR (Non-Af Amer) POC Glucose (mg/dL) 137 H Random Glucose Calcium Phosphorus Magnesium Total Bilirubin AST ALT Alkaline Phosphatase Total Protein Albumin Globulin Albumin/Globulin Ratio Blood Type Antibody Screen Crossmatch BBK History Checked 09/05/18 09/05/18 09/05/18 06:00 06:13 07:07 WBC RBC Hgb Hct MCV MCH MCHC RDW Plt Count MPV Gran % Lymph % (Auto) Gage % (Auto) Eos % (Auto) Baso % (Auto) Gran # Lymph # (Auto) Gage # (Auto) Eos # (Auto) Baso # (Auto) PT INR Sodium 148 Potassium 3.1 L Chloride 108 H Carbon Dioxide 35 H Anion Gap 9 L BUN 26 H Creatinine 0.9 Est GFR ( Amer) > 60 Est GFR (Non-Af Amer) > 60 POC Glucose (mg/dL) 114 H 114 H Random Glucose 116 H Calcium 8.7 Phosphorus Magnesium Total Bilirubin 1.6 H AST 40 ALT 27 Alkaline Phosphatase 194 H D Total Protein 6.3 Albumin 3.3 Globulin 3.0 Albumin/Globulin Ratio 1.1 Blood Type Antibody Screen Crossmatch BBK History Checked 09/05/18 09/05/18 09/05/18 08:35 11:17 11:50 WBC 7.2 RBC 2.65 L Hgb 7.5 L Hct 23.7 L MCV 89.4 MCH 28.3 MCHC 31.6 RDW 19.0 H Plt Count 92 L MPV 9.5 Gran % 69.8 H Lymph % (Auto) 20.7 L Gage % (Auto) 7.6 H Eos % (Auto) 1.9 Baso % (Auto) 0.0 Gran # 5.04 Lymph # (Auto) 1.5 Gage # (Auto) 0.6 Eos # (Auto) 0.1 Baso # (Auto) 0.00 PT INR Sodium Potassium Chloride Carbon Dioxide Anion Gap BUN Creatinine Est GFR ( Amer) Est GFR (Non-Af Amer) POC Glucose (mg/dL) 198 H Random Glucose Calcium Phosphorus 2.4 L Magnesium 1.8 Total Bilirubin AST ALT Alkaline Phosphatase Total Protein Albumin Globulin Albumin/Globulin Ratio Blood Type Antibody Screen Crossmatch BBK History Checked 09/05/18 14:30 WBC RBC Hgb Hct MCV MCH MCHC RDW Plt Count MPV Gran % Lymph % (Auto) Gage % (Auto) Eos % (Auto) Baso % (Auto) Gran # Lymph # (Auto) Gage # (Auto) Eos # (Auto) Baso # (Auto) PT INR Sodium Potassium Chloride Carbon Dioxide Anion Gap BUN Creatinine Est GFR ( Amer) Est GFR (Non-Af Amer) POC Glucose (mg/dL) Random Glucose Calcium Phosphorus Magnesium Total Bilirubin AST ALT Alkaline Phosphatase Total Protein Albumin Globulin Albumin/Globulin Ratio Blood Type A POSITIVE Antibody Screen Negative Crossmatch See Detail BBK History Checked Patient has bt Radiology Impressions: Radiology Impressions Abdomen/Pelvis CT 09/05/18 09:10 IMPRESSION: 1. No overt hepatic cirrhotic pattern appreciated. Cryptogenic cirrhosis is not excluded. 2. Minimal ascites, right adam abdomen. Etiology unclear. 3. Unremarkable appearing gallbladder despite the presence of sludge and possible cholelithiasis in prior abdomen ultrasound examination dated 08/26/2018. 4. Other lesser findings as discussed above. Findings discussed with Dr. Wu with written down and read back verification 09/05/2018 2:28 p.m.. Chest X-Ray 09/05/18 12:36 IMPRESSION: Cardiomegaly is large enough to obscure left base significantly where airspace disease or effusion are difficult to exclude. The mid to superior left lung zones are clear as well as the right lung. Critical Care Progress Note - Nutrition Nutrition: Nutrition Category Date Time Status NPO Diet [DIET] Diets 09/05/18 Lunch Ordered Addendum Addendum: 09/05/18 16:40 MICU Attending Addendum: 53 M with PMHx HIV CD4 361 (not on HAART), COPD, CHF-rEF (ECHO on 05/10 showing EF 39% with septal hypokinesis), Biventricular HF, CAD s/p PCI, DM, HTN, HLD being managed for COPD/CHF exasc found to be gradually severely anemia s/p EGD found to have multiple non-bleeding esophageal, gastric, and duodenal ulcers required 2nd look EGD showing bleeding ulcer s/p epi and clip. HB slowly trending down but much more stable than prior to 2nd EGD still having melanotic stool f/u GI rec for further management and possible referral to IR monitor pulm status given massive volume transfusion and poor heart function Rest of care as above Alberto Mcintyre MD Pulmonary Critical Care Attending
--- NOTE | 2018-09-05 12:29 | CP.PCM.PN ---
Subjective - Date & Time of Evaluation Date of Evaluation: 09/05/18 Time of Evaluation: 11:40 - Subjective Subjective: No fevers, not in distress. Objective - Vital Signs/Intake and Output Vital Signs (last 24 hours): Temp Pulse Resp BP Pulse Ox 98.4 F 87 13 159/85 H 97 09/03/18 20:00 09/03/18 22:00 09/03/18 22:00 09/04/18 09:23 09/03/18 22:00 - Medications Medications: Current Medications Albumin Human (Albumin Human 25% (12.5 Gm/50 Ml)) 12.5 gm IV Q4H [facility] Last Admin: 09/04/18 09:00 Dose: 12.5 gm Albuterol/Ipratropium (Duoneb 3 Mg/0.5 Mg (3 Ml) Ud) 3 ml IH [id number] [facility] Last Admin: 09/04/18 07:56 Dose: 3 ml Albuterol/Ipratropium (Duoneb 3 Mg/0.5 Mg (3 Ml) Ud) 3 ml IH Q2H PRN PRN Reason: Shortness of Breath Last Admin: 08/25/18 23:35 Dose: 3 ml Atorvastatin Calcium (Lipitor) 80 mg PO DIN [facility] Last Admin: 09/03/18 19:20 Dose: Not Given Carvedilol (Coreg) 12.5 mg PO BID [facility] Last Admin: 08/30/18 11:14 Dose: 12.5 mg Docusate Sodium (Colace) 100 mg PO BID [facility] Last Admin: 09/03/18 19:17 Dose: Not Given Doxycycline Hyclate (Doryx) 100 mg PO Q12 [facility]; Protocol Stop: 09/06/18 10:01 Last Admin: 09/04/18 09:23 Dose: 100 mg Furosemide (Lasix) 40 mg IVP DAILY [facility] Last Admin: 09/04/18 09:23 Dose: 40 mg Furosemide (Lasix) 20 mg PO ONCE ONE Stop: 09/04/18 12:07 Glipizide (Glucotrol) 5 mg PO ACB [facility] Last Admin: 08/31/18 07:45 Dose: Not Given Pantoprazole Sodium (Protonix 40mg Ivpb) 40 mg in 100 mls @ 20 mls/hr IVPB .Q5H [facility] Last Admin: 09/04/18 08:30 Dose: 20 mls/hr Cefepime HCl (Maxipime 1gm) 1 gm in 100 mls @ 100 mls/hr IVPB Q8 [facility]; Protocol Stop: 09/10/18 14:01 Last Admin: 09/04/18 06:25 Dose: 100 mls/hr Insulin Human Lispro (Humalog High) 0 units SC Q6 [facility]; Protocol Last Admin: 09/04/18 06:25 Dose: Not Given Lactulose (Enulose) 20 gm PO TID [facility] Last Admin: 09/01/18 17:03 Dose: 20 gm Losartan Potassium (Cozaar) 25 mg PO DAILY [facility] Last Admin: 08/30/18 11:14 Dose: 25 mg Rifaximin (Xifaxan) 550 mg PO BID [facility]; Protocol Last Admin: 09/04/18 09:23 Dose: 550 mg - Labs Labs: 09/03/18 21:00 09/03/18 21:00 PT 15.5 SECONDS (9.4-12.5) H 09/03/18 08:30 INR 1.34 09/03/18 08:30 APTT 29.6 Seconds (25.1-36.5) 09/03/18 08:30 - Constitutional Appears: Chronically Ill - Head Exam Head Exam: NORMAL INSPECTION - Respiratory Exam Respiratory Exam: Decreased Breath Sounds - Cardiovascular Exam Cardiovascular Exam: +S1, +S2 - GI/Abdominal Exam GI & Abdominal Exam: Soft. absent: Tenderness Assessment and Plan - Assessment and Plan (Free Text) Plan: Assessment SIRS due to acute on chronic systolic heart failure, R/O left sided HCAP chronic anemia with drop in hemoglobin, due to GI bleeding positive HIV PCR and positive 4th generation antibody test, acute versus chronic HIV infection S/P sepsis due to right lower lobe HCAP, S/P treatment with antibiotics obesity with BMI 35 COPD Plan T-cell count is above 200 - patient will need to be arranged to see an HIV specialist on discharge for further management of HIV and to be started on ART as an outpatient ICU managing anemia and respiratory distress - continue Cefepime and Doxycycline day 5 for 4-7 days will continue to monitor clinically follow up further plans of GI regarding GI bleeding overall prognosis is poor
--- NOTE | 2018-09-05 14:46 | CT ---
Date of service: 09/05/2018 PROCEDURE: CT Abdomen and Pelvis with contrast HISTORY: GI bleed, cirrhosis COMPARISON: Abdomen ultrasound 08/26/2018. Nuclear medicine gastrointestinal bleeding scan 09/02/2018. TECHNIQUE: Helical CT of the abdomen and pelvis was performed following oral contrast administration only. Intravenous contrast was not administered as per referring physician request. Coronal and sagittal reformats were generated. Contrast dose: None Radiation dose: Total exam DLP = 828.16 mGy-cm. This CT exam was performed using one or more of the following dose reduction techniques: Automated exposure control, adjustment of the mA and/or kV according to patient size, and/or use of iterative reconstruction technique. FINDINGS: LOWER THORAX: Marked cardiomegaly identified with [id number] pericardial effusion and right greater than left limited pleural effusions. Atelectasis or possible limited infiltrate is seen at the left lower lobe base LIVER: Although there is clinical concern for cirrhosis of the liver, liver border appears smooth with no overt nodularity to suggest nodular cirrhosis. Cryptogenic cirrhotic changes are not excluded. Liver otherwise appears grossly nonfocal. GALLBLADDER AND BILE DUCTS: Gallbladder appears mildly distended with sludge and cholelithiasis better seen in prior ultrasound than the current CT exam. No mural thickening or prominent pericholecystic fluid collection related. PANCREAS: Unremarkable. No gross lesion or ductal dilatation. SPLEEN: Unremarkable. ADRENALS: Unremarkable. No mass. KIDNEYS AND URETERS: Left renal cyst reiterated. No obstructive uropathy in the interval bilaterally. VASCULATURE: Nonaneurysmal abdominal aortic calcific atherosclerotic changes are identified. BOWEL: No bowel obstruction appreciated. Retained oral oral contrast material seen throughout the large bowel as well as distal small bowel loops. No gross intraluminal mass seen throughout the large bowel with the distal small bowel. APPENDIX: Not identified. PERITONEUM: Limited ascites is apparent predominate the right adam abdomen. LYMPH NODES: Unremarkable. No enlarged lymph nodes. BLADDER: Decompressed by Lugo catheter. REPRODUCTIVE: Normal size prostate gland. BONES: Late stage osteoarthritis bilateral hip joints OTHER FINDINGS: None. IMPRESSION: 1. No overt hepatic cirrhotic pattern appreciated. Cryptogenic cirrhosis is not excluded. 2. Minimal ascites, right adam abdomen. Etiology unclear. 3. Unremarkable appearing gallbladder despite the presence of sludge and possible cholelithiasis in prior abdomen ultrasound examination dated 08/26/2018. 4. Other lesser findings as discussed above. Findings discussed with Dr. Wu with written down and read back verification 09/05/2018 2:28 p.m..
--- NOTE | 2018-09-05 14:53 | CP.PCM.PN ---
Objective - Vital Signs/Intake and Output Vital Signs (last 24 hours): Temp Pulse Resp BP Pulse Ox 98.8 F 109 H 20 138/76 97 09/05/18 12:00 09/05/18 13:00 09/05/18 13:00 09/05/18 13:00 09/05/18 10:00 Intake and Output: 09/05/18 09/05/18 06:59 18:59 Intake Total 350 Output Total 1250 Balance -900 - Medications Medications: Current Medications Albuterol/Ipratropium (Duoneb 3 Mg/0.5 Mg (3 Ml) Ud) 3 ml IH [id number] [facility] Last Admin: 09/05/18 08:05 Dose: 3 ml Albuterol/Ipratropium (Duoneb 3 Mg/0.5 Mg (3 Ml) Ud) 3 ml IH Q2H PRN PRN Reason: Shortness of Breath Last Admin: 08/25/18 23:35 Dose: 3 ml Atorvastatin Calcium (Lipitor) 80 mg PO DIN [facility] Last Admin: 09/04/18 18:27 Dose: 80 mg Carvedilol (Coreg) 12.5 mg PO BID [facility] Last Admin: 08/30/18 11:14 Dose: 12.5 mg Docusate Sodium (Colace) 100 mg PO BID [facility] Last Admin: 09/05/18 09:32 Dose: 100 mg Doxycycline Hyclate (Doryx) 100 mg PO Q12 [facility]; Protocol Stop: 09/06/18 10:01 Last Admin: 09/05/18 10:00 Dose: 100 mg Furosemide (Lasix) 40 mg PO DAILY [facility] Last Admin: 09/05/18 09:32 Dose: 40 mg Furosemide (Lasix) 20 mg IVP ONCE ONE Stop: 09/05/18 15:01 Glipizide (Glucotrol) 5 mg PO ACB [facility] Last Admin: 08/31/18 07:45 Dose: Not Given Cefepime HCl (Maxipime 1gm) 1 gm in 100 mls @ 100 mls/hr IVPB Q8 [facility]; Protocol Stop: 09/10/18 14:01 Last Admin: 09/05/18 14:30 Dose: 100 mls/hr Potassium Phosphate 15 mmole/ (Sodium Chloride) 255 mls @ 42.5 mls/hr IVPB ONCE ONE Stop: 09/05/18 16:44 Last Admin: 09/05/18 14:27 Dose: 42.5 mls/hr Insulin Human Lispro (Humalog High) 0 units SC Q6 [facility]; Protocol Last Admin: 09/05/18 14:28 Dose: 2 u Lactulose (Enulose) 20 gm PO TID [facility] Last Admin: 09/01/18 17:03 Dose: 20 gm Losartan Potassium (Cozaar) 25 mg PO DAILY [facility] Last Admin: 08/30/18 11:14 Dose: 25 mg Pantoprazole Sodium (Protonix Inj) 40 mg IVP Q12 [facility] Last Admin: 09/05/18 09:32 Dose: 40 mg Rifaximin (Xifaxan) 550 mg PO BID [facility]; Protocol Last Admin: 09/05/18 09:32 Dose: 550 mg - Labs Labs: 09/05/18 11:50 09/05/18 06:00 PT 15.1 SECONDS (9.4-12.5) H 09/05/18 06:00 INR 1.31 09/05/18 06:00 APTT 29.6 Seconds (25.1-36.5) 09/03/18 08:30
--- NOTE | 2018-09-05 14:58 | RAD ---
Date of service: 09/05/2018 HISTORY: PNA COMPARISON: Portable chest 09/03/2018. FINDINGS: LUNGS: No right-sided infiltrate. Left basilar sub segments are poorly evaluated due to cardiomegaly. Underlying airspace disease not completely excluded. Left apex is clear as well as likely mid left lung zone. PLEURA: No pneumothorax bilaterally. No right pleural effusion. Mild or even moderate left pleural effusion difficult to exclude given prominent cardiomegaly. CARDIOVASCULAR: No aortic atherosclerotic calcification present. Cardiomegaly stable. No pulmonary vascular congestion. OSSEOUS STRUCTURES: No significant abnormalities. VISUALIZED UPPER ABDOMEN: Normal. OTHER FINDINGS: None. IMPRESSION: Cardiomegaly is large enough to obscure left base significantly where airspace disease or effusion are difficult to exclude. The mid to superior left lung zones are clear as well as the right lung.
[2018-09-05] MEDS ORDERED: Propofol 10 mg/ml Inj (20 ML) ONE (16:26)
--- NOTE | 2018-09-05 16:37 | PN ---
DATE: 07/06/2018 SUBJECTIVE: The patient denies any chest pain. He is comfortable in nasal O2. He denies any black stool. He is oriented to place. PHYSICAL EXAMINATION: VITAL SIGNS: Blood pressure 159/79, heart rate 95, temperature 97.9, respirations 24. HEENT: Pale conjunctivae. CHEST: Diminished breath sounds over the bases. HEART: S1 and S2 regular. ABDOMEN: Soft. EXTREMITIES: Improved leg edema. LABORATORY DATA: Hemoglobin and hematocrit are 7.6 and 23.9, white count 7.7, platelet count 94,000. Today's SMA-7: Sodium 148, potassium 3.1, chloride 108, CO2 of 35, glucose 116, BUN 26, creatinine 0.9. INR is 1.31. ASSESSMENT: 1. Biventricular failure. 2. Upper gastrointestinal bleeding. 3. Liver cirrhosis and hepatic encephalopathy. 4. Anemia and thrombocytopenia. 5. Human immunodeficiency virus positive. 6. Hypokalemia. 7. Hypophosphatemia. RECOMMENDATIONS: Continue current doxycycline 100 mg every 12 hours, Enulose 20 mg three times daily, Lasix 20 mg orally daily, Lipitor 80 mg once a day, magnesium sulfate intravenous replacement, IV cefepime at 1 g every 8 hours and potassium phosphate intravenous replacement as well as intravenous Protonix at 40 mg every 12 hours. The patient will undergo abdomen and pelvis CT scan with p.o. contrast. Beny Salgado MD
[2018-09-05 21:00] LABS: BASO # 0.01 K/mm3 (0.0-2.0); BASO % 0.1 % (0.0-3.0); EOS # 0.2 (0.0-0.7); EOS % 2.3 % (1.5-5.0); GRAN # 4.59 (1.4-6.5); GRAN % 59.7 % (50.0-68.0); HEMOGLOBIN 8.7 g/dL (14.0-18.0); LYMPH # 2.4 (1.2-3.4); LYMPH % 31.4 % (22.0-35.0); MEAN CELL VOLUME 90.5 fl (80.0-105.0); MEAN CORPUSCULAR HEMOGLOBIN 28.5 pg (25.0-35.0); MEAN CORPUSCULAR HGB CONC 31.5 g/dl (31.0-37.0); MEAN PLATELET VOLUME 10.8 fl (7.0-11.0); MONO # 0.5 (0.1-0.6); MONO % 6.5 % (1.0-6.0); RBC 3.05 10^6/uL (3.5-6.1); RED CELL DISTRIBUTION WIDTH 18.6 % (11.5-14.5); WHITE BLOOD COUNT 7.7 10^3/uL (4.5-11.0)
[2018-09-05] MEDS ORDERED: Morphine 2 mg/ml ISec IVP STA (22:43)
[2018-09-06 01:29] LABS: BASO # 0.01 K/mm3 (0.0-2.0); BASO % 0.1 % (0.0-3.0); EOS # 0.2 (0.0-0.7); EOS % 2.9 % (1.5-5.0); GRAN # 5.31 (1.4-6.5); GRAN % 66.4 % (50.0-68.0); HEMOGLOBIN 8.5 g/dL (14.0-18.0); LYMPH # 1.6 (1.2-3.4); LYMPH % 19.5 % (22.0-35.0); MEAN CELL VOLUME 89.2 fl (80.0-105.0); MEAN CORPUSCULAR HEMOGLOBIN 28.8 pg (25.0-35.0); MEAN CORPUSCULAR HGB CONC 32.3 g/dl (31.0-37.0); MEAN PLATELET VOLUME 10.1 fl (7.0-11.0); MONO # 0.9 (0.1-0.6); MONO % 11.1 % (1.0-6.0); RBC 2.95 10^6/uL (3.5-6.1); RED CELL DISTRIBUTION WIDTH 18.3 % (11.5-14.5)
[2018-09-06] MEDS: Albuterol-Ipratrop 3 mg / 0.5 (3 ml) UD IH SCH ×4 (01:57→20:10)
[2018-09-06] MEDS: Insulin Lispro (HUMAlog) HIGH Coverage SC SCH ×3 (05:25→21:02)
--- NOTE | 2018-09-06 06:48 | CP.PCM.PN ---
<Elaina Baca L - Last Filed: 09/06/18 14:15> Subjective - Date & Time of Evaluation Date of Evaluation: 09/06/18 Time of Evaluation: 06:47 - Subjective Subjective: Resident Progress Note for Hospitalist Service Patient examined at bedside. No acute events overnight. Patient is s/p repeat EGD which showed no evidence of bleed. He is tolerating liquid diet. Offers no complaints at this time. Denies fevers, chills, nausea, vomiting, abdominal pain, diarrhea, hematochezia. Objective - Vital Signs/Intake and Output Vital Signs (last 24 hours): Temp Pulse Resp BP Pulse Ox 98.9 F 94 H 21 144/95 H 98 09/05/18 23:00 09/05/18 22:00 09/05/18 18:11 09/05/18 18:11 09/05/18 16:22 Intake and Output: 09/05/18 09/06/18 18:59 06:59 Intake Total 2450 Output Total 1000 Balance 1450 - Medications Medications: Current Medications Albuterol/Ipratropium (Duoneb 3 Mg/0.5 Mg (3 Ml) Ud) 3 ml IH [id number] [facility] Last Admin: 09/06/18 01:57 Dose: Not Given Albuterol/Ipratropium (Duoneb 3 Mg/0.5 Mg (3 Ml) Ud) 3 ml IH Q2H PRN PRN Reason: Shortness of Breath Last Admin: 08/25/18 23:35 Dose: 3 ml Atorvastatin Calcium (Lipitor) 80 mg PO DIN [facility] Last Admin: 09/05/18 17:19 Dose: 80 mg Carvedilol (Coreg) 12.5 mg PO BID [facility] Last Admin: 08/30/18 11:14 Dose: 12.5 mg Docusate Sodium (Colace) 100 mg PO BID [facility] Last Admin: 09/05/18 17:52 Dose: Not Given Doxycycline Hyclate (Doryx) 100 mg PO Q12 [facility]; Protocol Stop: 09/06/18 10:01 Last Admin: 09/05/18 21:32 Dose: 100 mg Furosemide (Lasix) 40 mg PO DAILY [facility] Last Admin: 09/05/18 09:32 Dose: 40 mg Glipizide (Glucotrol) 5 mg PO ACB [facility] Last Admin: 08/31/18 07:45 Dose: Not Given Cefepime HCl (Maxipime 1gm) 1 gm in 100 mls @ 100 mls/hr IVPB Q8 [facility]; Protocol Stop: 09/10/18 14:01 Last Admin: 09/05/18 21:33 Dose: 100 mls/hr Insulin Human Lispro (Humalog High) 0 units SC Q6 [facility]; Protocol Last Admin: 09/06/18 05:25 Dose: Not Given Lactulose (Enulose) 20 gm PO TID [facility] Last Admin: 09/01/18 17:03 Dose: 20 gm Losartan Potassium (Cozaar) 25 mg PO DAILY [facility] Last Admin: 08/30/18 11:14 Dose: 25 mg Pantoprazole Sodium (Protonix Inj) 40 mg IVP Q12 [facility] Last Admin: 09/05/18 21:34 Dose: 40 mg Rifaximin (Xifaxan) 550 mg PO BID [facility]; Protocol Last Admin: 09/05/18 17:54 Dose: 550 mg - Labs Labs: 09/06/18 00:40 09/05/18 06:00 PT 15.1 SECONDS (9.4-12.5) H 09/05/18 06:00 INR 1.31 09/05/18 06:00 APTT 29.6 Seconds (25.1-36.5) 09/03/18 08:30 - Additional Findings Additional findings: - Constitutional Appears: Non-toxic, No Acute Distress - Head Exam Head Exam: ATRAUMATIC, NORMOCEPHALIC - Eye Exam Eye Exam: EOMI, Normal appearance, PERRL - ENT Exam ENT Exam: Mucous Membranes Moist, Normal Exam - Neck Exam Neck Exam: Full ROM. absent: Lymphadenopathy, Thyromegaly - Respiratory Exam Respiratory Exam: Rales, NORMAL BREATHING PATTERN. absent: Accessory Muscle Use, Respiratory Distress - Cardiovascular Exam Cardiovascular Exam: REGULAR RHYTHM, +S1, +S2. absent: Murmur - GI/Abdominal Exam GI & Abdominal Exam: Soft, Normal Bowel Sounds. absent: Distended, Firm, Guarding, Tenderness, Rebound - Extremities Exam Extremities Exam: Normal Capillary Refill. absent: Pedal Edema - Neurological Exam Neurological Exam: Alert, Awake, CN II-XII Intact, Oriented x3 - Psychiatric Exam Psychiatric exam: Normal Affect, Normal Mood - Skin Skin Exam: Dry, Intact, Warm Assessment and Plan - Assessment and Plan (Free Text) Assessment: 53 year old male with past medical history of COPD, diabetes mellitus type II, HTN, HLD, systolic CHF with EF of 39%, CAD with stent, lumbar radiculopathy, gout, and HIV presents with shortness of breath, admitted to ICU for management of UGIB. Plan: Anemia 2/2 UGIB - s/p 14 units of pRBCs, 2 FFPs, 1 Plts - Abdominal U/S showed patent portal vein, trace ascites. Limited study. - Bleeding scan 09/02 showed GI hemorrhage in likely in stomach with migration through duodenum and prox small bowel. - ICU consult placed - Dr. Eduardo - demetria appreciated - GI consult - Dr. Larsen - demetria appreciated. - Initial EGD showed esophageal, duodenal and gastric ulcers, with coffee-ground emesis vs blood found in antrum. Moderate portal HTN gastropathy. - Repeat EGD 09/02 showed clotted blood in gastric fundus and body as well as oozing hemorrhagic duodenal ulcer where a hemostatic clip was placed - Gen Surg consulted - no indication for surgical intervention at this time - Abd/pelvis CT shows minimal ascites, unremarkable gallbladder, no overt hepatic cirrhotic pattern - plan for colonoscopy as per GI recs Shortness of breath - CXR consistent with cardiomegaly - ECHO shows mild systolic congestive heart failure with EF of 39% from 04/2018 - Coreg and Cozaar currently on hold - Cardio consult- Dr. Salgado - demetria appreciated. Transitioned to Lasix 40 PO daily - Cefepime and Doxycycline for 4-7 days per ID for HCAP - 08/31 BCx neg x2 CAD with stent - EKG: Atrial fibrillation, RBBB - Troponinx3 elevated likely due to CORAZON - Cardiac catheterization in 12/2017 showed LAD lesion 80% - Continue with aspirin, antiHTN meds held - TSH: 2.41, LDL: 75 T2DM - Accuchecks - HgbA1c: 6.9 - Lispro high, Glipizide held CHARAN - Continue with CPAP/BiPap Hypertension - coreg, cozaar held in light of recent hypotension Hyperlipidemia - Lipid panel unremarkable - Continue with lipitor HIV - HIV antibody reactive with 3.33 on PCR - CD4 count 361 - MRSA nose negative GI prophylaxis: Protonix 40 mg IV Q12 DVT prophylaxis contraindicated due to UGIB Case discussed with Dr. Shashi Baca PGY-1 <Sonu Danielle - Last Filed: 09/06/18 16:19> Objective - Vital Signs/Intake and Output Vital Signs (last 24 hours): Temp Pulse Resp BP Pulse Ox 98.9 F 86 19 135/100 H 93 L 09/05/18 23:00 09/06/18 12:00 09/06/18 08:00 09/06/18 12:00 09/06/18 08:00 - Medications Medications: Current Medications Albuterol/Ipratropium (Duoneb 3 Mg/0.5 Mg (3 Ml) Ud) 3 ml IH [id number] [facility] Last Admin: 09/06/18 14:02 Dose: 3 ml Albuterol/Ipratropium (Duoneb 3 Mg/0.5 Mg (3 Ml) Ud) 3 ml IH Q2H PRN PRN Reason: Shortness of Breath Last Admin: 08/25/18 23:35 Dose: 3 ml Atorvastatin Calcium (Lipitor) 80 mg PO DIN [facility] Last Admin: 09/05/18 17:19 Dose: 80 mg Carvedilol (Coreg) 12.5 mg PO BID [facility] Last Admin: 09/06/18 12:00 Dose: 12.5 mg Docusate Sodium (Colace) 100 mg PO BID [facility] Last Admin: 09/06/18 12:00 Dose: 100 mg Furosemide (Lasix) 40 mg PO DAILY [facility] Last Admin: 09/06/18 12:00 Dose: 40 mg Glipizide (Glucotrol) 5 mg PO ACB [facility] Last Admin: 08/31/18 07:45 Dose: Not Given Insulin Human Lispro (Humalog High) 0 units SC Q6 [facility]; Protocol Last Admin: 09/06/18 12:00 Dose: Not Given Losartan Potassium (Cozaar) 25 mg PO DAILY [facility] Last Admin: 08/30/18 11:14 Dose: 25 mg Pantoprazole Sodium (Protonix Inj) 40 mg IVP Q12 [facility] Last Admin: 09/06/18 15:05 Dose: 40 mg - Labs Labs: 09/06/18 11:35 09/06/18 05:00 PT 14.5 SECONDS (9.4-12.5) H 09/06/18 05:00 INR 1.26 09/06/18 05:00 APTT 29.6 Seconds (25.1-36.5) 09/03/18 08:30 Attending/Attestation - Attestation I have personally seen and examined this patient.: Yes I have fully participated in the care of the patient.: Yes I have reviewed all pertinent clinical information, including history, physical exam and plan: Yes Notes (Text): 09/06/18 16:16 Medical record note made by the resident after discussion with my direction and input after the patient was personally seen and examined by me. I have reviewed the chart and agree that the record accurately reflects by personal performance of the history, physical exam, data review, and medical decision-making, in the course for the patient. I have also personally directed the plan of care. 53 yrs male with PMHx significant for HIV not on HAART, COPD, systolic CHF with biventricular failure, CAD s/p PCI, DM, HTN, hyperlipidemia and non compliance who presented to the hospital with shortness of breath.Patient had Acute blood loss anemia 2/2 severe PUD, required multiple PRBC transfusion, 2nd EGD on 09/02 with actively bleeding vessel Duodenal (FC1b) Ulcer SP epi injs and clip with hemostasis Patient hemoglobin was slowly dropping , and he was given one unit of PRBC yesterday.repeat Endoscopy yesterday was negative for any active bleeding. Patient hemoglobin is stable. GI is planning for Colonoscopy 09/09/18 Management plan was discussed in detail with patient. Education was provided. 09/04/18 13:50
[2018-09-06 06:58] LABS: EOS # 0.2 (0.0-0.7); EOS % 2.8 % (1.5-5.0); GRAN # 5.62 (1.4-6.5); GRAN % 68.3 % (50.0-68.0); HEMOGLOBIN 8.4 g/dL (14.0-18.0); LYMPH # 1.7 (1.2-3.4); MEAN CELL VOLUME 89.3 fl (80.0-105.0); MEAN CORPUSCULAR HEMOGLOBIN 28.2 pg (25.0-35.0); MEAN CORPUSCULAR HGB CONC 31.6 g/dl (31.0-37.0); MEAN PLATELET VOLUME 10.8 fl (7.0-11.0); MONO # 0.7 (0.1-0.6); MONO % 7.9 % (1.0-6.0); RBC 2.98 10^6/uL (3.5-6.1); RED CELL DISTRIBUTION WIDTH 18.3 % (11.5-14.5); WHITE BLOOD COUNT 8.2 10^3/uL (4.5-11.0)
[2018-09-06 07:01] LABS: INR 1.26; PROTHROMBIN TIME 14.5 SECONDS (9.4-12.5)
[2018-09-06 07:36] LABS: ALBUMIN 3.3 g/dL (3.0-4.8); ALT/SGPT 25 U/L (7-56); AST/SGOT 42 U/L (17-59); BLOOD UREA NITROGEN 17 mg/dL (7-21); CALCIUM 8.5 mg/dL (8.4-10.5); GFR NON-AFRICAN AMERICAN > 60
--- NOTE | 2018-09-06 10:47 | CP.PCM.PN ---
Subjective - Date & Time of Evaluation Date of Evaluation: 09/06/18 Time of Evaluation: 07:00 - Subjective Subjective: Progress note for Dr. Vizcarra Pt seen and examined at bedside, patient's hgb dropped again yesterday and he was administered one more unit of blood and underwent a repeat EGD which did not show any active bleed. Patient's hgb responded appropriately, he denies any nausea, vomiting, abdominal pain or any other symptoms. Last BM was yesterday AM and it was melenic Objective - Vital Signs/Intake and Output Vital Signs (last 24 hours): Temp Pulse Resp BP Pulse Ox 98.9 F 101 H 19 138/80 93 L 09/05/18 23:00 09/06/18 08:00 09/06/18 08:00 09/06/18 08:00 09/06/18 08:00 - Medications Medications: Current Medications Albuterol/Ipratropium (Duoneb 3 Mg/0.5 Mg (3 Ml) Ud) 3 ml IH [id number] [facility] Last Admin: 09/06/18 07:44 Dose: 3 ml Albuterol/Ipratropium (Duoneb 3 Mg/0.5 Mg (3 Ml) Ud) 3 ml IH Q2H PRN PRN Reason: Shortness of Breath Last Admin: 08/25/18 23:35 Dose: 3 ml Atorvastatin Calcium (Lipitor) 80 mg PO DIN [facility] Last Admin: 09/05/18 17:19 Dose: 80 mg Carvedilol (Coreg) 12.5 mg PO BID [facility] Docusate Sodium (Colace) 100 mg PO BID [facility] Last Admin: 09/05/18 17:52 Dose: Not Given Furosemide (Lasix) 40 mg PO DAILY [facility] Last Admin: 09/05/18 09:32 Dose: 40 mg Glipizide (Glucotrol) 5 mg PO ACB [facility] Last Admin: 08/31/18 07:45 Dose: Not Given Insulin Human Lispro (Humalog High) 0 units SC Q6 [facility]; Protocol Last Admin: 09/06/18 05:25 Dose: Not Given Lactulose (Enulose) 20 gm PO TID [facility] Last Admin: 09/01/18 17:03 Dose: 20 gm Losartan Potassium (Cozaar) 25 mg PO DAILY [facility] Last Admin: 08/30/18 11:14 Dose: 25 mg Pantoprazole Sodium (Protonix Inj) 40 mg IVP Q12 [facility] Last Admin: 09/05/18 21:34 Dose: 40 mg Rifaximin (Xifaxan) 550 mg PO BID [facility]; Protocol Last Admin: 09/05/18 17:54 Dose: 550 mg - Labs Labs: 09/06/18 05:00 09/06/18 05:00 PT 14.5 SECONDS (9.4-12.5) H 09/06/18 05:00 INR 1.26 09/06/18 05:00 APTT 29.6 Seconds (25.1-36.5) 09/03/18 08:30 - Constitutional Appears: Well, Non-toxic, No Acute Distress - Head Exam Head Exam: ATRAUMATIC, NORMOCEPHALIC - Eye Exam Eye Exam: Normal appearance. absent: Conjunctival injection, Scleral icterus - ENT Exam ENT Exam: Mucous Membranes Moist, Normal Oropharynx - Respiratory Exam Respiratory Exam: NORMAL BREATHING PATTERN. absent: Accessory Muscle Use, Respiratory Distress - Cardiovascular Exam Cardiovascular Exam: Tachycardia, REGULAR RHYTHM, RRR - GI/Abdominal Exam GI & Abdominal Exam: Soft. absent: Distended, Tenderness - Extremities Exam Extremities Exam: absent: Calf Tenderness, Tenderness - Neurological Exam Neurological Exam: Alert, Awake, Oriented x3 - Psychiatric Exam Psychiatric exam: Normal Affect, Normal Mood - Skin Skin Exam: Dry, Normal Color, Warm Assessment and Plan - Assessment and Plan (Free Text) Assessment: Continue to trend CBC--transfuse as needed F/U GI recs--colonoscopy on Wednesday Monitor UOP and bowel function Continue protonix Recommend IR consult for angiogram if patient has persistent drop in H/H No general surgical intervention indicated at this time--will monitor closely for any clinical deterioration Discussed with Dr. Zackery Rivas, PGY2
--- NOTE | 2018-09-06 11:21 | CP.PCM.PN ---
<Edgar Alcantar - Last Filed: 09/06/18 11:24> Subjective - Date & Time of Evaluation Date of Evaluation: 09/06/18 Time of Evaluation: 08:00 - Subjective Subjective: PGY6 GI Fellow Progress Note Patient seen and examined bedside this morning. The patient states that he is feeling well but expresses frustration with lack of diet advancement. No melena or hematochezia per nursing staff. 12 system ROS performed and negative except where stated Objective - Vital Signs/Intake and Output Vital Signs (last 24 hours): Temp Pulse Resp BP Pulse Ox 98.9 F 101 H 19 138/80 93 L 09/05/18 23:00 09/06/18 08:00 09/06/18 08:00 09/06/18 08:00 09/06/18 08:00 - Medications Medications: Current Medications Albuterol/Ipratropium (Duoneb 3 Mg/0.5 Mg (3 Ml) Ud) 3 ml IH [id number] [facility] Last Admin: 09/06/18 07:44 Dose: 3 ml Albuterol/Ipratropium (Duoneb 3 Mg/0.5 Mg (3 Ml) Ud) 3 ml IH Q2H PRN PRN Reason: Shortness of Breath Last Admin: 08/25/18 23:35 Dose: 3 ml Atorvastatin Calcium (Lipitor) 80 mg PO DIN [facility] Last Admin: 09/05/18 17:19 Dose: 80 mg Carvedilol (Coreg) 12.5 mg PO BID [facility] Docusate Sodium (Colace) 100 mg PO BID [facility] Last Admin: 09/05/18 17:52 Dose: Not Given Furosemide (Lasix) 40 mg PO DAILY [facility] Last Admin: 09/05/18 09:32 Dose: 40 mg Glipizide (Glucotrol) 5 mg PO ACB [facility] Last Admin: 08/31/18 07:45 Dose: Not Given Insulin Human Lispro (Humalog High) 0 units SC Q6 [facility]; Protocol Last Admin: 09/06/18 05:25 Dose: Not Given Lactulose (Enulose) 20 gm PO TID [facility] Last Admin: 09/01/18 17:03 Dose: 20 gm Losartan Potassium (Cozaar) 25 mg PO DAILY [facility] Last Admin: 08/30/18 11:14 Dose: 25 mg Pantoprazole Sodium (Protonix Inj) 40 mg IVP Q12 [facility] Last Admin: 09/05/18 21:34 Dose: 40 mg Rifaximin (Xifaxan) 550 mg PO BID [facility]; Protocol Last Admin: 09/05/18 17:54 Dose: 550 mg - Labs Labs: 09/06/18 05:00 09/06/18 05:00 PT 14.5 SECONDS (9.4-12.5) H 09/06/18 05:00 INR 1.26 09/06/18 05:00 APTT 29.6 Seconds (25.1-36.5) 09/03/18 08:30 - Constitutional Appears: No Acute Distress, Chronically Ill - Eye Exam Eye Exam: EOMI, PERRL - ENT Exam ENT Exam: Mucous Membranes Moist - Respiratory Exam Respiratory Exam: Decreased Breath Sounds. absent: Clear to Ausculation Bilateral, Rales, Rhonchi, Wheezes - Cardiovascular Exam Cardiovascular Exam: RRR, +S1, +S2 - GI/Abdominal Exam GI & Abdominal Exam: Soft, Normal Bowel Sounds. absent: Distended, Firm, Guarding, Rigid, Tenderness, Organomegaly - Extremities Exam Extremities Exam: Normal Inspection. absent: Pedal Edema - Neurological Exam Neurological Exam: Alert, Awake, Oriented x3 - Psychiatric Exam Psychiatric exam: Normal Affect, Normal Mood - Skin Skin Exam: Dry, Warm Assessment and Plan - Assessment and Plan (Free Text) Assessment: Patient is a 53yo male with PMHx significant for HIV not on HAART, COPD, systolic CHF with biventricular failure, CAD s/p PCI, DM, HTN, hyperlipidemia who presented to the hospital 5 days ago with shortness of breath -Acute blood loss anemia 2/2 severe PUD -Biventricular heart failure -COPD with acute exacerbation -CAD -HIV Plan: -Repeated EGD yesterday without evidence of active bleeding; multiple large, irregular appearing ulcers noted, particularly in the 2nd portion of duodenum -Continue transfusion support as needed -Advance to full liquid diet -Plan for colonoscopy on Wednesday, two day prep to begin Wed -If significant GI bleeding recurs, recommend IR evaluation for gastroduodenal embolization -Discontinue Xifaxan -Chronic liver disease work up unremarkable thus far and the diagnosis of cirrhosis remains in question - CT imaging performed yesterday rather unremarkable; encephalopathy may have been acute and related to metabolic changes/active bleed -Continue to monitor clinical course <Cyril Larsen V - Last Filed: 09/06/18 15:41> Objective - Vital Signs/Intake and Output Vital Signs (last 24 hours): Temp Pulse Resp BP Pulse Ox 98.9 F 86 19 135/100 H 93 L 09/05/18 23:00 09/06/18 12:00 09/06/18 08:00 09/06/18 12:00 09/06/18 08:00 - Medications Medications: Current Medications Albuterol/Ipratropium (Duoneb 3 Mg/0.5 Mg (3 Ml) Ud) 3 ml IH [id number] [facility] Last Admin: 09/06/18 14:02 Dose: 3 ml Albuterol/Ipratropium (Duoneb 3 Mg/0.5 Mg (3 Ml) Ud) 3 ml IH Q2H PRN PRN Reason: Shortness of Breath Last Admin: 08/25/18 23:35 Dose: 3 ml Atorvastatin Calcium (Lipitor) 80 mg PO DIN [facility] Last Admin: 09/05/18 17:19 Dose: 80 mg Carvedilol (Coreg) 12.5 mg PO BID [facility] Last Admin: 09/06/18 12:00 Dose: 12.5 mg Docusate Sodium (Colace) 100 mg PO BID [facility] Last Admin: 09/06/18 12:00 Dose: 100 mg Furosemide (Lasix) 40 mg PO DAILY [facility] Last Admin: 09/06/18 12:00 Dose: 40 mg Glipizide (Glucotrol) 5 mg PO ACB [facility] Last Admin: 08/31/18 07:45 Dose: Not Given Insulin Human Lispro (Humalog High) 0 units SC Q6 [facility]; Protocol Last Admin: 09/06/18 12:00 Dose: Not Given Losartan Potassium (Cozaar) 25 mg PO DAILY [facility] Last Admin: 08/30/18 11:14 Dose: 25 mg Pantoprazole Sodium (Protonix Inj) 40 mg IVP Q12 [facility] Last Admin: 09/06/18 15:05 Dose: 40 mg - Labs Labs: 09/06/18 11:35 09/06/18 05:00 PT 14.5 SECONDS (9.4-12.5) H 09/06/18 05:00 INR 1.26 09/06/18 05:00 APTT 29.6 Seconds (25.1-36.5) 09/03/18 08:30 Attending/Attestation - Attestation I have personally seen and examined this patient.: Yes I have fully participated in the care of the patient.: Yes I have reviewed all pertinent clinical information, including history, physical exam and plan: Yes Notes (Text): This is an addendum to GI progress report dictated by the GI Fellow. The patient was seen and examined earlier. Medical records, lab studies, imagings were reviewed. Last 24 hours events reviewed. Agreed with the above treatment plan as outlined in GI Fellow 's notes with the addition of the following Patient is tolerating diet. Hemoglobin stable. Will advance the diet to full liquid today. Etiology for this multiple esophageal, gastric, and extensive duodenal ulcers not clear in this patient. Recommend colonoscopy to be scheduled on Wednesday, will change diet to clear liquids tomorrow. ID follow up. 09/06/18 15:33
[2018-09-06 11:39] LABS: EOS # 0.2 (0.0-0.7); EOS % 2.6 % (1.5-5.0); GRAN # 5.3 (1.4-6.5); GRAN % 69.5 % (50.0-68.0); HEMOGLOBIN 8.4 g/dL (14.0-18.0); LYMPH # 1.7 (1.2-3.4); LYMPH % 22.5 % (22.0-35.0); MEAN CELL VOLUME 89.7 fl (80.0-105.0); MEAN CORPUSCULAR HEMOGLOBIN 28.8 pg (25.0-35.0); MEAN CORPUSCULAR HGB CONC 32.1 g/dl (31.0-37.0); MEAN PLATELET VOLUME 9.9 fl (7.0-11.0); MONO # 0.4 (0.1-0.6); MONO % 5.4 % (1.0-6.0); RBC 2.92 10^6/uL (3.5-6.1); RED CELL DISTRIBUTION WIDTH 18.1 % (11.5-14.5); WHITE BLOOD COUNT 7.6 10^3/uL (4.5-11.0)
--- NOTE | 2018-09-06 12:20 | CP.PCM.PN ---
Subjective - Date & Time of Evaluation Date of Evaluation: 09/06/18 Time of Evaluation: 10:10 - Subjective Subjective: Comfortable, no fevers, breathing better, no abdominal pain. Objective - Vital Signs/Intake and Output Vital Signs (last 24 hours): Temp Pulse Resp BP Pulse Ox 97.9 F 95 H 24 155/94 H 94 L 09/05/18 08:00 09/05/18 08:00 09/05/18 08:00 09/05/18 09:32 09/05/18 03:00 Intake and Output: 09/05/18 09/05/18 06:59 18:59 Intake Total 350 Output Total 1250 Balance -900 - Medications Medications: Current Medications Albuterol/Ipratropium (Duoneb 3 Mg/0.5 Mg (3 Ml) Ud) 3 ml IH [id number] [facility] Last Admin: 09/05/18 08:05 Dose: 3 ml Albuterol/Ipratropium (Duoneb 3 Mg/0.5 Mg (3 Ml) Ud) 3 ml IH Q2H PRN PRN Reason: Shortness of Breath Last Admin: 08/25/18 23:35 Dose: 3 ml Atorvastatin Calcium (Lipitor) 80 mg PO DIN [facility] Last Admin: 09/04/18 18:27 Dose: 80 mg Carvedilol (Coreg) 12.5 mg PO BID [facility] Last Admin: 08/30/18 11:14 Dose: 12.5 mg Docusate Sodium (Colace) 100 mg PO BID [facility] Last Admin: 09/05/18 09:32 Dose: 100 mg Doxycycline Hyclate (Doryx) 100 mg PO Q12 [facility]; Protocol Stop: 09/06/18 10:01 Last Admin: 09/05/18 10:00 Dose: 100 mg Furosemide (Lasix) 40 mg PO DAILY [facility] Last Admin: 09/05/18 09:32 Dose: 40 mg Glipizide (Glucotrol) 5 mg PO ACB [facility] Last Admin: 08/31/18 07:45 Dose: Not Given Cefepime HCl (Maxipime 1gm) 1 gm in 100 mls @ 100 mls/hr IVPB Q8 [facility]; Protocol Stop: 09/10/18 14:01 Last Admin: 09/05/18 06:04 Dose: 100 mls/hr Potassium Phosphate 15 mmole/ (Sodium Chloride) 255 mls @ 42.5 mls/hr IVPB ONCE ONE Stop: 09/05/18 16:44 Insulin Human Lispro (Humalog High) 0 units SC Q6 [facility]; Protocol Last Admin: 09/05/18 06:18 Dose: Not Given Lactulose (Enulose) 20 gm PO TID [facility] Last Admin: 09/01/18 17:03 Dose: 20 gm Losartan Potassium (Cozaar) 25 mg PO DAILY [facility] Last Admin: 08/30/18 11:14 Dose: 25 mg Pantoprazole Sodium (Protonix Inj) 40 mg IVP Q12 [facility] Last Admin: 09/05/18 09:32 Dose: 40 mg Rifaximin (Xifaxan) 550 mg PO BID [facility]; Protocol Last Admin: 09/05/18 09:32 Dose: 550 mg - Labs Labs: 09/05/18 11:50 09/05/18 06:00 PT 15.1 SECONDS (9.4-12.5) H 09/05/18 06:00 INR 1.31 09/05/18 06:00 APTT 29.6 Seconds (25.1-36.5) 09/03/18 08:30 - Constitutional Appears: Chronically Ill - Head Exam Head Exam: NORMAL INSPECTION - Respiratory Exam Respiratory Exam: Decreased Breath Sounds - Cardiovascular Exam Cardiovascular Exam: +S1, +S2 - GI/Abdominal Exam GI & Abdominal Exam: Soft. absent: Tenderness Assessment and Plan - Assessment and Plan (Free Text) Plan: Assessment SIRS due to acute on chronic systolic heart failure, R/O left sided HCAP, clinically improving chronic anemia with drop in hemoglobin, due to GI bleeding positive HIV PCR and positive 4th generation antibody test, acute versus chronic HIV infection S/P sepsis due to right lower lobe HCAP, S/P treatment with antibiotics obesity with BMI 35 COPD Plan T-cell count is above 200 - patient will need to be arranged to see an HIV specialist on discharge for further management of HIV and to be started on ART as an outpatient ICU managing anemia and respiratory distress - will d/c Cefepime and Doxycycline (finished 5 days) will continue to monitor clinically follow up further plans of GI regarding GI bleeding overall prognosis is poor
--- NOTE | 2018-09-06 13:08 | CP.CCUPN ---
<Elie Herr - Last Filed: 09/06/18 12:53> CCU Subjective - Physician Review Subjective (Free Text): Elie Herr PGY1 Progress Note for ICU Patient was seen and examined at bedside this morning. Patient is AAOx3. He denies chest pain, shortness of breath, abdominal pain, n/v/d. Vital signs are stable. No acute overnight events. Currently patient is sitting up in bed respirating on room air without difficulty. Most recent Hgb is 8.4. CCU Objective - Vital Signs / Intake & Output Intake and Output (Last 8hrs): Intake & Output 09/05/18 09/06/18 09/06/18 22:59 06:59 14:59 Intake Total 2450 Output Total 1000 Balance 1450 Intake: IV 350 antibiotics 350 Oral 1800 Blood Product 300 Output: Urine 1000 Urethral (Lugo) 1000 Other: # Bowel Movements 1 - Physical Exam Head: Positive for: Atraumatic, Normocephalic Pupils: Positive for: PERRL Extroacular Muscles: Positive for: EOMI Conjunctiva: Positive for: Normal Mouth: Positive for: Moist Mucous Membranes Neck: Positive for: Normal Range of Motion Respiratory/Chest: Positive for: Rales (Improved). Negative for: Clear to Auscultation, Good Air Exchange, Respiratory Distress, Accessory Muscle Use, Wheezes, Retracting, Rhonchi, Tachypneic Cardiovascular: Positive for: Regular Rate and Rhythm, Normal S1, S2. Negative for: Murmurs Abdomen: Positive for: Normal Bowel Sounds, Mass/Organomegaly (Hepatomegaly ). Negative for: Tenderness, Distention, Peritoneal Signs, Rebound, Guarding Genitourinary Male: Positive for: Other (Lugo in place. ) Back: Positive for: Normal Inspection Upper Extremity: Positive for: Normal Inspection. Negative for: Cyanosis, Edema Lower Extremity: Positive for: Other (B/L lower extremity stasis dermatitis/scaly dry skin noted). Negative for: Edema Neurological: Positive for: Speech Normal, Motor Func Grossly Intact Skin: Positive for: Warm, Dry, Normal Color. Negative for: Rashes Psychiatric: Positive for: Alert, Oriented x 3 - Medications Active Medications: Active Medications Generic Name Dose Route Start Last Admin Trade Name Freq PRN Reason Stop Dose Admin Albuterol/Ipratropium 3 ml 08/26/18 02:00 12/18/18 07:44 Duoneb 3 Mg/0.5 Mg (3 Ml) Ud IH 3 ml [id number] TRAVIS Administration Albuterol/Ipratropium 3 ml 08/25/18 20:01 08/25/18 23:35 Duoneb 3 Mg/0.5 Mg (3 Ml) Ud IH 3 ml Q2H PRN Administration Shortness of Breath Atorvastatin Calcium 80 mg 08/25/18 20:15 09/05/18 17:19 Lipitor PO 80 mg DIN TRAVIS Administration Carvedilol 12.5 mg 09/06/18 09:51 Coreg PO BID TRAVIS Docusate Sodium 100 mg 08/26/18 10:00 09/05/18 17:52 Colace PO Not Given BID TRAVIS Furosemide 40 mg 09/05/18 10:00 09/05/18 09:32 Lasix PO 40 mg DAILY TRAVIS Administration Glipizide 5 mg 08/29/18 10:45 08/31/18 07:45 Glucotrol PO Not Given ACB [facility] Insulin Human Lispro 0 units 09/04/18 00:00 09/06/18 05:25 Humalog High SC Not Given Q6 [facility] Protocol Lactulose 20 gm 08/31/18 14:00 09/01/18 17:03 Enulose PO 20 gm TID TRAVIS Administration Losartan Potassium 25 mg 08/27/18 12:30 08/30/18 11:14 Cozaar PO 25 mg DAILY TRAVIS Administration Pantoprazole Sodium 40 mg 09/04/18 22:00 09/05/18 21:34 Protonix Inj IVP 40 mg Q12 TRAVIS Administration Rifaximin 550 mg 08/31/18 10:00 09/05/18 17:54 Xifaxan PO 550 mg BID TRAVIS Administration Protocol - Patient Studies Lab Studies: Microbiology Studies 08/31/18 17:30 Blood Culture - Final Blood NO GROWTH AFTER 5 DAYS Gram Stain - Final TEST NOT PERFORMED 08/31/18 17:00 Blood Culture - Final Blood NO GROWTH AFTER 5 DAYS Gram Stain - Final TEST NOT PERFORMED Lab Studies 09/06/18 09/06/18 09/06/18 Range/Units 11:35 07:44 05:00 WBC 7.6 (4.5-11.0) 10^3/uL RBC 2.92 L (3.5-6.1) 10^6/uL Hgb 8.4 L (14.0-18.0) g/dL Hct 26.2 L (42.0-52.0) % MCV 89.7 (80.0-105.0) fl MCH 28.8 (25.0-35.0) pg MCHC 32.1 (31.0-37.0) g/dl RDW 18.1 H (11.5-14.5) % Plt Count 107 L (120.0-450.0) 10^3/uL MPV 9.9 (7.0-11.0) fl Gran % 69.5 H (50.0-68.0) % Lymph % (Auto) 22.5 (22.0-35.0) % [place] % (Auto) 5.4 (1.0-6.0) % Eos % (Auto) 2.6 (1.5-5.0) % Baso % (Auto) 0.0 (0.0-3.0) % Gran # 5.30 (1.4-6.5) Lymph # (Auto) 1.7 (1.2-3.4) [place] # (Auto) 0.4 (0.1-0.6) Eos # (Auto) 0.2 (0.0-0.7) Baso # (Auto) 0.00 (0.0-2.0) K/mm3 PT (9.4-12.5) SECONDS INR Sodium 143 (132-148) mmol/L Potassium 3.3 L (3.6-5.0) mmol/L Chloride 105 (98-107) mmol/L Carbon Dioxide 31 (21-33) mmol/L Anion Gap 10 (10-20) BUN 17 (7-21) mg/dL Creatinine 0.9 (0.8-1.5) mg/dl Est GFR ( Amer) > 60 Est GFR (Non-Af Amer) > 60 POC Glucose (mg/dL) 114 H (65-110) mg/dL Random Glucose 111 H (70-110) mg/dL Calcium 8.5 (8.4-10.5) mg/dL Phosphorus 2.3 L (2.5-4.5) mg/dL Magnesium 1.8 (1.7-2.2) mg/dL Total Bilirubin 1.7 H (0.2-1.3) mg/dL AST 42 (17-59) U/L ALT 25 (7-56) U/L Alkaline Phosphatase 222 H (38-126) U/L Total Protein 6.8 (5.8-8.3) g/dL Albumin 3.3 (3.0-4.8) g/dL Globulin 3.5 gm/dL Albumin/Globulin Ratio 1.0 L (1.1-1.8) Blood Type Antibody Screen Crossmatch BBK History Checked 09/06/18 09/06/18 09/06/18 Range/Units 05:00 05:00 00:40 WBC 8.2 8.0 (4.5-11.0) 10^3/uL RBC 2.98 L 2.95 L (3.5-6.1) 10^6/uL Hgb 8.4 L 8.5 L (14.0-18.0) g/dL Hct 26.6 L 26.3 L (42.0-52.0) % MCV 89.3 89.2 (80.0-105.0) fl MCH 28.2 28.8 (25.0-35.0) pg MCHC 31.6 32.3 (31.0-37.0) g/dl RDW 18.3 H 18.3 H (11.5-14.5) % Plt Count 115 L 98 L (120.0-450.0) 10^3/uL MPV 10.8 10.1 (7.0-11.0) fl Gran % 68.3 H 66.4 (50.0-68.0) % Lymph % (Auto) 21.0 L 19.5 L (22.0-35.0) % [place] % (Auto) 7.9 H 11.1 H (1.0-6.0) % Eos % (Auto) 2.8 2.9 (1.5-5.0) % Baso % (Auto) 0.0 0.1 (0.0-3.0) % Gran # 5.62 5.31 (1.4-6.5) Lymph # (Auto) 1.7 1.6 (1.2-3.4) [place] # (Auto) 0.7 H 0.9 H (0.1-0.6) Eos # (Auto) 0.2 0.2 (0.0-0.7) Baso # (Auto) 0.00 0.01 (0.0-2.0) K/mm3 PT 14.5 H (9.4-12.5) SECONDS INR 1.26 Sodium (132-148) mmol/L Potassium (3.6-5.0) mmol/L Chloride (98-107) mmol/L Carbon Dioxide (21-33) mmol/L Anion Gap (10-20) BUN (7-21) mg/dL Creatinine (0.8-1.5) mg/dl Est GFR ( Amer) Est GFR (Non-Af Amer) POC Glucose (mg/dL) (65-110) mg/dL Random Glucose (70-110) mg/dL Calcium (8.4-10.5) mg/dL Phosphorus (2.5-4.5) mg/dL Magnesium (1.7-2.2) mg/dL Total Bilirubin (0.2-1.3) mg/dL AST (17-59) U/L ALT (7-56) U/L Alkaline Phosphatase (38-126) U/L Total Protein (5.8-8.3) g/dL Albumin (3.0-4.8) g/dL Globulin gm/dL Albumin/Globulin Ratio (1.1-1.8) Blood Type Antibody Screen Crossmatch BBK History Checked 09/05/18 09/05/18 09/05/18 Range/Units 20:53 16:56 14:30 WBC 7.7 (4.5-11.0) 10^3/uL RBC 3.05 L (3.5-6.1) 10^6/uL Hgb 8.7 L (14.0-18.0) g/dL Hct 27.6 L (42.0-52.0) % MCV 90.5 (80.0-105.0) fl MCH 28.5 (25.0-35.0) pg MCHC 31.5 (31.0-37.0) g/dl RDW 18.6 H (11.5-14.5) % Plt Count 105 L (120.0-450.0) 10^3/uL MPV 10.8 (7.0-11.0) fl Gran % 59.7 (50.0-68.0) % Lymph % (Auto) 31.4 (22.0-35.0) % [place] % (Auto) 6.5 H (1.0-6.0) % Eos % (Auto) 2.3 (1.5-5.0) % Baso % (Auto) 0.1 (0.0-3.0) % Gran # 4.59 (1.4-6.5) Lymph # (Auto) 2.4 (1.2-3.4) [place] # (Auto) 0.5 (0.1-0.6) Eos # (Auto) 0.2 (0.0-0.7) Baso # (Auto) 0.01 (0.0-2.0) K/mm3 PT (9.4-12.5) SECONDS INR Sodium (132-148) mmol/L Potassium (3.6-5.0) mmol/L Chloride (98-107) mmol/L Carbon Dioxide (21-33) mmol/L Anion Gap (10-20) BUN (7-21) mg/dL Creatinine (0.8-1.5) mg/dl Est GFR ( Amer) Est GFR (Non-Af Amer) POC Glucose (mg/dL) 105 (65-110) mg/dL Random Glucose (70-110) mg/dL Calcium (8.4-10.5) mg/dL Phosphorus (2.5-4.5) mg/dL Magnesium (1.7-2.2) mg/dL Total Bilirubin (0.2-1.3) mg/dL AST (17-59) U/L ALT (7-56) U/L Alkaline Phosphatase (38-126) U/L Total Protein (5.8-8.3) g/dL Albumin (3.0-4.8) g/dL Globulin gm/dL Albumin/Globulin Ratio (1.1-1.8) Blood Type A POSITIVE Antibody Screen Negative Crossmatch See Detail BBK History Checked Patient has bt Laboratory Results - last 24 hr 09/05/18 09/05/18 09/05/18 14:30 16:56 20:53 WBC 7.7 RBC 3.05 L Hgb 8.7 L Hct 27.6 L MCV 90.5 MCH 28.5 MCHC 31.5 RDW 18.6 H Plt Count 105 L MPV 10.8 Gran % 59.7 Lymph % (Auto) 31.4 [place] % (Auto) 6.5 H Eos % (Auto) 2.3 Baso % (Auto) 0.1 Gran # 4.59 Lymph # (Auto) 2.4 [place] # (Auto) 0.5 Eos # (Auto) 0.2 Baso # (Auto) 0.01 PT INR Sodium Potassium Chloride Carbon Dioxide Anion Gap BUN Creatinine Est GFR ( Amer) Est GFR (Non-Af Amer) POC Glucose (mg/dL) 105 Random Glucose Calcium Phosphorus Magnesium Total Bilirubin AST ALT Alkaline Phosphatase Total Protein Albumin Globulin Albumin/Globulin Ratio Blood Type A POSITIVE Antibody Screen Negative Crossmatch See Detail BBK History Checked Patient has bt 09/06/18 09/06/18 09/06/18 00:40 05:00 05:00 WBC 8.0 8.2 RBC 2.95 L 2.98 L Hgb 8.5 L 8.4 L Hct 26.3 L 26.6 L MCV 89.2 89.3 MCH 28.8 28.2 MCHC 32.3 31.6 RDW 18.3 H 18.3 H Plt Count 98 L 115 L MPV 10.1 10.8 Gran % 66.4 68.3 H Lymph % (Auto) 19.5 L 21.0 L [place] % (Auto) 11.1 H 7.9 H Eos % (Auto) 2.9 2.8 Baso % (Auto) 0.1 0.0 Gran # 5.31 5.62 Lymph # (Auto) 1.6 1.7 [place] # (Auto) 0.9 H 0.7 H Eos # (Auto) 0.2 0.2 Baso # (Auto) 0.01 0.00 PT 14.5 H INR 1.26 Sodium Potassium Chloride Carbon Dioxide Anion Gap BUN Creatinine Est GFR ( Amer) Est GFR (Non-Af Amer) POC Glucose (mg/dL) Random Glucose Calcium Phosphorus Magnesium Total Bilirubin AST ALT Alkaline Phosphatase Total Protein Albumin Globulin Albumin/Globulin Ratio Blood Type Antibody Screen Crossmatch BBK History Checked 09/06/18 09/06/18 09/06/18 05:00 07:44 11:35 WBC 7.6 RBC 2.92 L Hgb 8.4 L Hct 26.2 L MCV 89.7 MCH 28.8 MCHC 32.1 RDW 18.1 H Plt Count 107 L MPV 9.9 Gran % 69.5 H Lymph % (Auto) 22.5 [place] % (Auto) 5.4 Eos % (Auto) 2.6 Baso % (Auto) 0.0 Gran # 5.30 Lymph # (Auto) 1.7 [place] # (Auto) 0.4 Eos # (Auto) 0.2 Baso # (Auto) 0.00 PT INR Sodium 143 Potassium 3.3 L Chloride 105 Carbon Dioxide 31 Anion Gap 10 BUN 17 Creatinine 0.9 Est GFR ( Amer) > 60 Est GFR (Non-Af Amer) > 60 POC Glucose (mg/dL) 114 H Random Glucose 111 H Calcium 8.5 Phosphorus 2.3 L Magnesium 1.8 Total Bilirubin 1.7 H AST 42 ALT 25 Alkaline Phosphatase 222 H Total Protein 6.8 Albumin 3.3 Globulin 3.5 Albumin/Globulin Ratio 1.0 L Blood Type Antibody Screen Crossmatch BBK History Checked Radiology Impressions: Radiology Impressions Abdomen/Pelvis CT 09/05/18 09:10 IMPRESSION: 1. No overt hepatic cirrhotic pattern appreciated. Cryptogenic cirrhosis is not excluded. 2. Minimal ascites, right adam abdomen. Etiology unclear. 3. Unremarkable appearing gallbladder despite the presence of sludge and possible cholelithiasis in prior abdomen ultrasound examination dated 08/26/2018. 4. Other lesser findings as discussed above. Findings discussed with Dr. Wu with written down and read back verification 09/05/2018 2:28 p.m.. Chest X-Ray 09/05/18 12:36 IMPRESSION: Cardiomegaly is large enough to obscure left base significantly where airspace disease or effusion are difficult to exclude. The mid to superior left lung zones are clear as well as the right lung. Fingerstick Blood Sugar Results: 105 Review of Systems - Review of Systems Review of Systems: 12 point ROS completed and negative except as described in HPI. Critical Care Progress Note - Nutrition Nutrition: Nutrition Category Date Time Status Liquid Diet [DIET] Diets 09/05/18 Dinner Ordered Assessment/Plan - Assessment and Plan (Free Text) Assessment: Patient is a 53 y/o M with PMHx HIV (not on HAART), COPD, CHF-rEF (ECHO on 05/10 showing EF 39% with septal hypokinesis), Biventricular HF, CAD s/p PCI, DM, HTN, HLD who [place] [facility] [place]. Patient admitted and treated for CHF exacerbation with fluid overload. ICU was consulted for evaluation of upper GI bleed with new onset anemia requiring multiple blood transfusions. Patient is s/p endoscopy x3 and was found initially to have multiple non-bleeding esophageal/gastric ulcers with a bleeding duodenal ulcer - s/p epi injection and clip without current bleeding on most recent EGD. Patient hemodynamically stable with stable anemia. Plan: Neuro: - Currently AAOx3 on interview without confusion - Rifaximin to be discontinued per GI recs Pulm: - Treated for CHF exacerbation with fluid overload - Switched to Lasix 40mg PO daily - C/w nasal cannula as needed - Saturating well and no acute respiratory distress. - Maintain SaO2 > 92% - Monitor ins/outs Cardio: - Maintain MAP > 65 - Echo (05/10): EF 39% with septal hypokinesis - Cardio is on consult. Recs appreciated - Hx CHF-rEF, Biventricular HF, HTN, DM, CAD (s/p PCI), HLD GI: - Upper GI bleed 2/2 multiple non-bleeding ulcers and bleeding duodenal ulcer s/p endoscopy x3 with epi injection and clip placement - Repeat endoscopy (09/02) showed bleeding duodenal ulcer - s/p injection and clip placement - Repeat endoscopy (09/05) shows no evidence of current bleeding - Bleeding scan was positive - Will advanced to full liquid diet per GI recs - continue to monitor H/H - Protonix drip discontinued. PTX 40 mg IV BID started - Surgery consulted. Recs appreciated. CT abdomen/pelvis PO contrast (09/05) unremarkable. - GI is on consult. Recs: D/C Rifaximin. Colonoscopy planned for 09/09. Full liquid diet. Heme: - Most recent INR is 1.26 - Repeat Hgb 8.4. Lactulose on hold. - Thrombocytopenia 107. Avoid thrombocytopenic-causing agents like Heparin, Sulfa -containing antibiotics. - Total transfusions during hospital course thus far: x14 pRBC, x2 FFP, and x1 platelets - DVT ppx with SCDs Renal: - High Sodium, High BUN secondary to underlying liver cirrhosis - Hypokalemia - repleted with k-chris - Albumin supplementation discontinued per GI recs - Lugo in place - Monitor strict Ins/outs Endo: - ISS (high) - Accuchecks q4 - Maintain blood glucose within 140-180 range - Hx DM ID: - Completed 5 day course of cefepime and doxycycline 09/06. Monitor off ABx - ID is on consult. Patient seen, case reviewed and plan approved by Dr. Eduardo. Elie Herr, PGY-1 <Dago Eduardo - Last Filed: 09/06/18 13:22> CCU Objective - Vital Signs / Intake & Output Intake and Output (Last 8hrs): Intake & Output 09/05/18 09/06/18 09/06/18 22:59 06:59 14:59 Intake Total 2450 Output Total 1000 Balance 1450 Intake: IV 350 antibiotics 350 Oral 1800 Blood Product 300 Output: Urine 1000 Urethral (Lugo) 1000 Other: # Bowel Movements 1 - Medications Active Medications: Active Medications Generic Name Dose Route Start Last Admin Trade Name Freq PRN Reason Stop Dose Admin Albuterol/Ipratropium 3 ml 08/26/18 02:00 09/06/18 07:44 Duoneb 3 Mg/0.5 Mg (3 Ml) Ud IH 3 ml [id number] TRAVIS Administration Albuterol/Ipratropium 3 ml 08/25/18 20:01 08/25/18 23:35 Duoneb 3 Mg/0.5 Mg (3 Ml) Ud IH 3 ml Q2H PRN Administration Shortness of Breath Atorvastatin Calcium 80 mg 08/25/18 20:15 09/05/18 17:19 Lipitor PO 80 mg DIN TRAVIS Administration Carvedilol 12.5 mg 09/06/18 09:51 Coreg PO BID TRAVIS Docusate Sodium 100 mg 08/26/18 10:00 09/05/18 17:52 Colace PO Not Given BID TRAVIS Furosemide 40 mg 09/05/18 10:00 09/05/18 09:32 Lasix PO 40 mg DAILY TRAVIS Administration Glipizide 5 mg 08/29/18 10:45 08/31/18 07:45 Glucotrol PO Not Given ACB [facility] Insulin Human Lispro 0 units 09/04/18 00:00 09/06/18 05:25 Humalog High SC Not Given Q6 [facility] Protocol Losartan Potassium 25 mg 08/27/18 12:30 08/30/18 11:14 Cozaar PO 25 mg DAILY TRAVIS Administration Pantoprazole Sodium 40 mg 09/04/18 22:00 09/05/18 21:34 Protonix Inj IVP 40 mg Q12 TRAVIS Administration - Patient Studies Lab Studies: Microbiology Studies 08/31/18 17:30 Blood Culture - Final Blood NO GROWTH AFTER 5 DAYS Gram Stain - Final TEST NOT PERFORMED 08/31/18 17:00 Blood Culture - Final Blood NO GROWTH AFTER 5 DAYS Gram Stain - Final TEST NOT PERFORMED Lab Studies 09/06/18 09/06/18 09/06/18 Range/Units 11:35 07:44 05:00 WBC 7.6 (4.5-11.0) 10^3/uL RBC 2.92 L (3.5-6.1) 10^6/uL Hgb 8.4 L (14.0-18.0) g/dL Hct 26.2 L (42.0-52.0) % MCV 89.7 (80.0-105.0) fl MCH 28.8 (25.0-35.0) pg MCHC 32.1 (31.0-37.0) g/dl RDW 18.1 H (11.5-14.5) % Plt Count 107 L (120.0-450.0) 10^3/uL MPV 9.9 (7.0-11.0) fl Gran % 69.5 H (50.0-68.0) % Lymph % (Auto) 22.5 (22.0-35.0) % [place] % (Auto) 5.4 (1.0-6.0) % Eos % (Auto) 2.6 (1.5-5.0) % Baso % (Auto) 0.0 (0.0-3.0) % Gran # 5.30 (1.4-6.5) Lymph # (Auto) 1.7 (1.2-3.4) [place] # (Auto) 0.4 (0.1-0.6) Eos # (Auto) 0.2 (0.0-0.7) Baso # (Auto) 0.00 (0.0-2.0) K/mm3 PT (9.4-12.5) SECONDS INR Sodium 143 (132-148) mmol/L Potassium 3.3 L (3.6-5.0) mmol/L Chloride 105 (98-107) mmol/L Carbon Dioxide 31 (21-33) mmol/L Anion Gap 10 (10-20) BUN 17 (7-21) mg/dL Creatinine 0.9 (0.8-1.5) mg/dl Est GFR ( Amer) > 60 Est GFR (Non-Af Amer) > 60 POC Glucose (mg/dL) 114 H (65-110) mg/dL Random Glucose 111 H (70-110) mg/dL Calcium 8.5 (8.4-10.5) mg/dL Phosphorus 2.3 L (2.5-4.5) mg/dL Magnesium 1.8 (1.7-2.2) mg/dL Total Bilirubin 1.7 H (0.2-1.3) mg/dL AST 42 (17-59) U/L ALT 25 (7-56) U/L Alkaline Phosphatase 222 H (38-126) U/L Total Protein 6.8 (5.8-8.3) g/dL Albumin 3.3 (3.0-4.8) g/dL Globulin 3.5 gm/dL Albumin/Globulin Ratio 1.0 L (1.1-1.8) Blood Type Antibody Screen Crossmatch BBK History Checked 09/06/18 09/06/18 09/06/18 Range/Units 05:00 05:00 00:40 WBC 8.2 8.0 (4.5-11.0) 10^3/uL RBC 2.98 L 2.95 L (3.5-6.1) 10^6/uL Hgb 8.4 L 8.5 L (14.0-18.0) g/dL Hct 26.6 L 26.3 L (42.0-52.0) % MCV 89.3 89.2 (80.0-105.0) fl MCH 28.2 28.8 (25.0-35.0) pg MCHC 31.6 32.3 (31.0-37.0) g/dl RDW 18.3 H 18.3 H (11.5-14.5) % Plt Count 115 L 98 L (120.0-450.0) 10^3/uL MPV 10.8 10.1 (7.0-11.0) fl Gran % 68.3 H 66.4 (50.0-68.0) % Lymph % (Auto) 21.0 L 19.5 L (22.0-35.0) % [place] % (Auto) 7.9 H 11.1 H (1.0-6.0) % Eos % (Auto) 2.8 2.9 (1.5-5.0) % Baso % (Auto) 0.0 0.1 (0.0-3.0) % Gran # 5.62 5.31 (1.4-6.5) Lymph # (Auto) 1.7 1.6 (1.2-3.4) [place] # (Auto) 0.7 H 0.9 H (0.1-0.6) Eos # (Auto) 0.2 0.2 (0.0-0.7) Baso # (Auto) 0.00 0.01 (0.0-2.0) K/mm3 PT 14.5 H (9.4-12.5) SECONDS INR 1.26 Sodium (132-148) mmol/L Potassium (3.6-5.0) mmol/L Chloride (98-107) mmol/L Carbon Dioxide (21-33) mmol/L Anion Gap (10-20) BUN (7-21) mg/dL Creatinine (0.8-1.5) mg/dl Est GFR ( Amer) Est GFR (Non-Af Amer) POC Glucose (mg/dL) (65-110) mg/dL Random Glucose (70-110) mg/dL Calcium (8.4-10.5) mg/dL Phosphorus (2.5-4.5) mg/dL Magnesium (1.7-2.2) mg/dL Total Bilirubin (0.2-1.3) mg/dL AST (17-59) U/L ALT (7-56) U/L Alkaline Phosphatase (38-126) U/L Total Protein (5.8-8.3) g/dL Albumin (3.0-4.8) g/dL Globulin gm/dL Albumin/Globulin Ratio (1.1-1.8) Blood Type Antibody Screen Crossmatch BBK History Checked 12/09/05/18 09/05/18 Range/Units 20:53 16:56 14:30 WBC 7.7 (4.5-11.0) 10^3/uL RBC 3.05 L (3.5-6.1) 10^6/uL Hgb 8.7 L (14.0-18.0) g/dL Hct 27.6 L (42.0-52.0) % MCV 90.5 (80.0-105.0) fl MCH 28.5 (25.0-35.0) pg MCHC 31.5 (31.0-37.0) g/dl RDW 18.6 H (11.5-14.5) % Plt Count 105 L (120.0-450.0) 10^3/uL MPV 10.8 (7.0-11.0) fl Gran % 59.7 (50.0-68.0) % Lymph % (Auto) 31.4 (22.0-35.0) % [place] % (Auto) 6.5 H (1.0-6.0) % Eos % (Auto) 2.3 (1.5-5.0) % Baso % (Auto) 0.1 (0.0-3.0) % Gran # 4.59 (1.4-6.5) Lymph # (Auto) 2.4 (1.2-3.4) [place] # (Auto) 0.5 (0.1-0.6) Eos # (Auto) 0.2 (0.0-0.7) Baso # (Auto) 0.01 (0.0-2.0) K/mm3 PT (9.4-12.5) SECONDS INR Sodium (132-148) mmol/L Potassium (3.6-5.0) mmol/L Chloride (98-107) mmol/L Carbon Dioxide (21-33) mmol/L Anion Gap (10-20) BUN (7-21) mg/dL Creatinine (0.8-1.5) mg/dl Est GFR ( Amer) Est GFR (Non-Af Amer) POC Glucose (mg/dL) 105 (65-110) mg/dL Random Glucose (70-110) mg/dL Calcium (8.4-10.5) mg/dL Phosphorus (2.5-4.5) mg/dL Magnesium (1.7-2.2) mg/dL Total Bilirubin (0.2-1.3) mg/dL AST (17-59) U/L ALT (7-56) U/L Alkaline Phosphatase (38-126) U/L Total Protein (5.8-8.3) g/dL Albumin (3.0-4.8) g/dL Globulin gm/dL Albumin/Globulin Ratio (1.1-1.8) Blood Type A POSITIVE Antibody Screen Negative Crossmatch See Detail BBK History Checked Patient has bt Laboratory Results - last 24 hr 09/05/18 09/05/18 09/05/18 14:30 16:56 20:53 WBC 7.7 RBC 3.05 L Hgb 8.7 L Hct 27.6 L MCV 90.5 MCH 28.5 MCHC 31.5 RDW 18.6 H Plt Count 105 L MPV 10.8 Gran % 59.7 Lymph % (Auto) 31.4 [place] % (Auto) 6.5 H Eos % (Auto) 2.3 Baso % (Auto) 0.1 Gran # 4.59 Lymph # (Auto) 2.4 [place] # (Auto) 0.5 Eos # (Auto) 0.2 Baso # (Auto) 0.01 PT INR Sodium Potassium Chloride Carbon Dioxide Anion Gap BUN Creatinine Est GFR ( Amer) Est GFR (Non-Af Amer) POC Glucose (mg/dL) 105 Random Glucose Calcium Phosphorus Magnesium Total Bilirubin AST ALT Alkaline Phosphatase Total Protein Albumin Globulin Albumin/Globulin Ratio Blood Type A POSITIVE Antibody Screen Negative Crossmatch See Detail BBK History Checked Patient has bt 09/06/18 09/06/18 09/06/18 00:40 05:00 05:00 WBC 8.0 8.2 RBC 2.95 L 2.98 L Hgb 8.5 L 8.4 L Hct 26.3 L 26.6 L MCV 89.2 89.3 MCH 28.8 28.2 MCHC 32.3 31.6 RDW 18.3 H 18.3 H Plt Count 98 L 115 L MPV 10.1 10.8 Gran % 66.4 68.3 H Lymph % (Auto) 19.5 L 21.0 L [place] % (Auto) 11.1 H 7.9 H Eos % (Auto) 2.9 2.8 Baso % (Auto) 0.1 0.0 Gran # 5.31 5.62 Lymph # (Auto) 1.6 1.7 [place] # (Auto) 0.9 H 0.7 H Eos # (Auto) 0.2 0.2 Baso # (Auto) 0.01 0.00 PT 14.5 H INR 1.26 Sodium Potassium Chloride Carbon Dioxide Anion Gap BUN Creatinine Est GFR ( Amer) Est GFR (Non-Af Amer) POC Glucose (mg/dL) Random Glucose Calcium Phosphorus Magnesium Total Bilirubin AST ALT Alkaline Phosphatase Total Protein Albumin Globulin Albumin/Globulin Ratio Blood Type Antibody Screen Crossmatch BBK History Checked 09/06/18 09/06/18 09/06/18 05:00 07:44 11:35 WBC 7.6 RBC 2.92 L Hgb 8.4 L Hct 26.2 L MCV 89.7 MCH 28.8 MCHC 32.1 RDW 18.1 H Plt Count 107 L MPV 9.9 Gran % 69.5 H Lymph % (Auto) 22.5 [place] % (Auto) 5.4 Eos % (Auto) 2.6 Baso % (Auto) 0.0 Gran # 5.30 Lymph # (Auto) 1.7 [place] # (Auto) 0.4 Eos # (Auto) 0.2 Baso # (Auto) 0.00 PT INR Sodium 143 Potassium 3.3 L Chloride 105 Carbon Dioxide 31 Anion Gap 10 BUN 17 Creatinine 0.9 Est GFR ( Amer) > 60 Est GFR (Non-Af Amer) > 60 POC Glucose (mg/dL) 114 H Random Glucose 111 H Calcium 8.5 Phosphorus 2.3 L Magnesium 1.8 Total Bilirubin 1.7 H AST 42 ALT 25 Alkaline Phosphatase 222 H Total Protein 6.8 Albumin 3.3 Globulin 3.5 Albumin/Globulin Ratio 1.0 L Blood Type Antibody Screen Crossmatch BBK History Checked Radiology Impressions: Radiology Impressions Abdomen/Pelvis CT 09/05/18 09:10 IMPRESSION: 1. No overt hepatic cirrhotic pattern appreciated. Cryptogenic cirrhosis is not excluded. 2. Minimal ascites, right adam abdomen. Etiology unclear. 3. Unremarkable appearing gallbladder despite the presence of sludge and possible cholelithiasis in prior abdomen ultrasound examination dated 08/26/2018. 4. Other lesser findings as discussed above. Findings discussed with Dr. Wu with written down and read back verification 09/05/2018 2:28 p.m.. Chest X-Ray 09/05/18 12:36 IMPRESSION: Cardiomegaly is large enough to obscure left base significantly where airspace disease or effusion are difficult to exclude. The mid to superior left lung zones are clear as well as the right lung. Critical Care Progress Note - Nutrition Nutrition: Nutrition Category Date Time Status Liquid Diet [DIET] Diets 09/05/18 Dinner Ordered Liquid Diet [DIET] Diets 09/06/18 Dinner Ordered Assessment/Plan - Assessment and Plan (Free Text) Assessment: Patient seen and examined on rounds with resident, agree with note with following additions/exceptions: 53 M with PMHx HIV CD4 361 (not on HAART), COPD, CHF-rEF (ECHO on 05/10 showing EF 39% with septal hypokinesis), Biventricular HF, CAD s/p PCI, DM, HTN, HLD, found to be grually severely anemia s/p EGD found to have multiple non-bleeding esophageal, gastric, and duodenal ulcers, with subsequent drop in HH, then had repeat EGD, found to have bleeding duodenal ulcer s/p epi injection and clip. Patient once again noted to have drop in HH yesterday morning, transfused 1u PRBC, and had repeat EGD, which showed non bleeding ulcers. HH has been stable since yesterday, no further prbc transfusions required. Currently afebrile BP stable, comfortable in NAD, tolerating PO diet, clears, NO melena. GIB Duodenal Ulcer HIV CHFCAD DM HTN HLD Recommend: - supp o2 as needed, duoensb PRN - ADC abx - Hold BP meds - Follow up ID - advance diet - PPI drip - Rifaximin, Lactulose - maintain 2 large bore PIVs - GI ppx - DVT ppx, SCDs - Stable, transfer to tele
--- NOTE | 2018-09-06 14:25 | PN ---
DATE: SUBJECTIVE: The patient denies chest pain. Breathing is comfortable in nasal O2. No abdominal pain and no reported melena. PHYSICAL EXAMINATION VITAL SIGNS: Blood pressure 138/80, heart rate 101, temperature 98.9, respirations 19. HEENT: Fair conjunctivae. CHEST: Diminished breath sounds over the bases. HEART: S1 and S2 regular. EXTREMITIES: Improved leg edema. LABORATORY DATA: Today's hemoglobin and hematocrit 8.4 and 26.2, white count 7.6, platelet count 170,000. Today's SMA-7: Within normal limits except for glucose of 111 and potassium is 3.3. Today's phosphorus is 2.3, magnesium is within normal limits at 1.8. Abdomen and pelvis CT scan: No overt hepatic cirrhotic pattern. Cryptogenic cirrhosis is not excluded. Minimal ascites. Unremarkable-appearing gallbladder. Yesterday's chest x-ray: Cardiomegaly, is large enough to obscure space significantly, where airspace disease or effusion are difficult to exclude. ASSESSMENT: 1. Biventricular failure. 2. Upper gastrointestinal bleeding. 3. Hypokalemia. 4. Uncontrolled diabetes mellitus. 5. Hypophosphatemia. 6. Ammoniacal encephalopathy. RECOMMENDATIONS: Continue Coreg 12.5 mg once a day, Cozaar 25 mg once a day, Lasix 20 mg p.o. once a day, Lipitor 80 mg once a day, Protonix 40 mg twice a day. Beny Salgado MD (Delete this signature block when dictator is a preceptor.)
[2018-09-07] MEDS: Albuterol-Ipratrop 3 mg / 0.5 (3 ml) UD IH SCH ×4 (02:20→21:00)
[2018-09-07 06:43] LABS: BASO # 0.01 K/mm3 (0.0-2.0); BASO % 0.1 % (0.0-3.0); EOS # 0.2 (0.0-0.7); EOS % 2.6 % (1.5-5.0); GRAN # 5.47 (1.4-6.5); GRAN % 66.7 % (50.0-68.0); HEMOGLOBIN 8.2 g/dL (14.0-18.0); LYMPH # 1.9 (1.2-3.4); LYMPH % 22.6 % (22.0-35.0); MEAN CELL VOLUME 89.5 fl (80.0-105.0); MEAN CORPUSCULAR HEMOGLOBIN 27.7 pg (25.0-35.0); MEAN CORPUSCULAR HGB CONC 30.9 g/dl (31.0-37.0); MEAN PLATELET VOLUME 10.7 fl (7.0-11.0); MONO # 0.7 (0.1-0.6); RBC 2.96 10^6/uL (3.5-6.1); RED CELL DISTRIBUTION WIDTH 18.2 % (11.5-14.5); WHITE BLOOD COUNT 8.2 10^3/uL (4.5-11.0)
[2018-09-07 06:48] LABS: INR 1.27; PROTHROMBIN TIME 14.7 SECONDS (9.4-12.5)
[2018-09-07 06:57] LABS: ALB/GLOB RATIO 0.9 (1.1-1.8); ALT/SGPT 34 U/L (7-56); AST/SGOT 52 U/L (17-59); BLOOD UREA NITROGEN 16 mg/dL (7-21); CALCIUM 8.2 mg/dL (8.4-10.5); GFR NON-AFRICAN AMERICAN > 60
[2018-09-07] MEDS: Insulin Lispro (HUMAlog) HIGH Coverage SC SCH ×2 (08:56→18:02)
--- NOTE | 2018-09-07 09:48 | RAD ---
Date of service: 09/07/2018 HISTORY: PNA COMPARISON: 09/05/2018 FINDINGS: LUNGS: No active pulmonary disease. PLEURA: No significant pleural effusion identified, no pneumothorax apparent. CARDIOVASCULAR: No aortic atherosclerotic calcification present. Moderate cardiomegaly mild vascular congestion OSSEOUS STRUCTURES: No significant abnormalities. VISUALIZED UPPER ABDOMEN: Normal. OTHER FINDINGS: None. IMPRESSION: Moderate cardiomegaly mild vascular congestion
[2018-09-07] MEDS ORDERED: Potassium Chloride 20 mEq ER Tab PO STA (09:49)
[2018-09-07] MEDS: Potassium Chloride 20 mEq ER Tab PO ONE ×2 (10:01→10:06)
--- NOTE | 2018-09-07 10:22 | CP.PCM.PN ---
<Edgar Alcantar - Last Filed: 09/07/18 10:19> Subjective - Date & Time of Evaluation Date of Evaluation: 09/07/18 Time of Evaluation: 08:00 - Subjective Subjective: PGY6 GI Fellow Progress Note Patient seen and examined bedside this morning. The patient states that he is feeling much better today. Denies any complaints. No events overnight. 12 system ROS performed and negative except where stated Objective - Vital Signs/Intake and Output Vital Signs (last 24 hours): Temp Pulse Resp BP Pulse Ox 98.8 F 101 H 14 112/50 L 100 09/07/18 00:00 09/07/18 10:06 09/07/18 07:00 09/07/18 10:17 09/07/18 07:00 Intake and Output: 09/07/18 09/07/18 06:59 18:59 Intake Total 10 Output Total 900 Balance -890 - Medications Medications: Current Medications Albuterol/Ipratropium (Duoneb 3 Mg/0.5 Mg (3 Ml) Ud) 3 ml IH [id number] [facility] Last Admin: 09/07/18 08:13 Dose: 3 ml Albuterol/Ipratropium (Duoneb 3 Mg/0.5 Mg (3 Ml) Ud) 3 ml IH Q2H PRN PRN Reason: Shortness of Breath Last Admin: 08/25/18 23:35 Dose: 3 ml Atorvastatin Calcium (Lipitor) 80 mg PO DIN [facility] Last Admin: 09/06/18 18:56 Dose: 80 mg Bisacodyl (Dulcolax) 10 mg PO ONCE ONE Stop: 09/08/18 16:01 Carvedilol (Coreg) 12.5 mg PO BID [facility] Last Admin: 09/07/18 10:06 Dose: 12.5 mg Furosemide (Lasix) 40 mg PO DAILY [facility] Last Admin: 09/07/18 10:17 Dose: 40 mg Glipizide (Glucotrol) 5 mg PO ACB [facility] Last Admin: 08/31/18 07:45 Dose: Not Given Insulin Human Lispro (Humalog High) 0 units SC Q6 [facility]; Protocol Last Admin: 09/07/18 08:56 Dose: Not Given Losartan Potassium (Cozaar) 25 mg PO DAILY [facility] Last Admin: 08/30/18 11:14 Dose: 25 mg Pantoprazole Sodium (Protonix Inj) 40 mg IVP Q12 [facility] Last Admin: 09/07/18 10:06 Dose: 40 mg Polyethylene Glycol/Electrolytes (Golytely) 2,000 ml PO ONCE ONE Stop: 09/07/18 15:01 Polyethylene Glycol/Electrolytes (Golytely) 2,000 ml PO ONCE ONE Stop: 09/08/18 20:01 - Labs Labs: 09/07/18 05:30 09/07/18 05:30 PT 14.7 SECONDS (9.4-12.5) H 09/07/18 05:30 INR 1.27 09/07/18 05:30 APTT 29.6 Seconds (25.1-36.5) 09/03/18 08:30 - Constitutional Appears: Non-toxic, No Acute Distress - Eye Exam Eye Exam: EOMI, PERRL - ENT Exam ENT Exam: Mucous Membranes Moist - Respiratory Exam Respiratory Exam: Rales. absent: Clear to Ausculation Bilateral, Rhonchi, Wheezes - Cardiovascular Exam Cardiovascular Exam: Tachycardia, REGULAR RHYTHM, +S1, +S2 - GI/Abdominal Exam GI & Abdominal Exam: Soft, Normal Bowel Sounds. absent: Distended, Firm, Guarding, Rigid, Tenderness, Organomegaly - Extremities Exam Extremities Exam: Normal Inspection. absent: Pedal Edema - Neurological Exam Neurological Exam: Alert, Awake, Oriented x3 - Psychiatric Exam Psychiatric exam: Normal Affect, Normal Mood - Skin Skin Exam: Dry, Warm Assessment and Plan - Assessment and Plan (Free Text) Assessment: Patient is a 53yo male with PMHx significant for HIV not on HAART, COPD, systolic CHF with biventricular failure, CAD s/p PCI, DM, HTN, hyperlipidemia who presented to the hospital 5 days ago with shortness of breath -Acute blood loss anemia 2/2 severe PUD -Biventricular heart failure -COPD with acute exacerbation -CAD -HIV Plan: -HGB continues to slowly drop, 8.2 today - monitor Q12H in absence of overt bleeding -Transfusion support as necessary -Plan for colonoscopy on Wednesday - 2L golytely prep today, 2L tomorrow, dulcolax tomorrow -Full liquids today, clear liquid diet tomorrow -If significant GI bleeding recurs, recommend IR evaluation for gastroduodenal embolization -Chronic liver disease work up unremarkable thus far and the diagnosis of cirrhosis remains in question - CT imaging performed yesterday rather unremarkable; encephalopathy may have been acute and related to metabolic changes/active bleed -Continue to monitor clinical course <Cyril Larsen V - Last Filed: 09/07/18 21:56> Objective - Vital Signs/Intake and Output Vital Signs (last 24 hours): Temp Pulse Resp BP Pulse Ox 98.8 F 93 H 20 129/76 100 09/07/18 00:00 09/07/18 18:03 09/07/18 17:59 09/07/18 18:03 09/07/18 10:01 - Medications Medications: Current Medications Albuterol/Ipratropium (Duoneb 3 Mg/0.5 Mg (3 Ml) Ud) 3 ml IH [id number] [facility] Last Admin: 09/07/18 13:25 Dose: Not Given Albuterol/Ipratropium (Duoneb 3 Mg/0.5 Mg (3 Ml) Ud) 3 ml IH Q2H PRN PRN Reason: Shortness of Breath Last Admin: 08/25/18 23:35 Dose: 3 ml Atorvastatin Calcium (Lipitor) 80 mg PO DIN [facility] Last Admin: 09/07/18 18:03 Dose: 80 mg Bisacodyl (Dulcolax) 10 mg PO ONCE ONE Stop: 09/08/18 16:01 Carvedilol (Coreg) 12.5 mg PO BID [facility] Last Admin: 09/07/18 18:03 Dose: 12.5 mg Furosemide (Lasix) 40 mg PO DAILY [facility] Last Admin: 09/07/18 10:17 Dose: 40 mg Glipizide (Glucotrol) 5 mg PO ACB [facility] Last Admin: 08/31/18 07:45 Dose: Not Given Insulin Human Lispro (Humalog High) 0 units SC Q6 [facility]; Protocol Last Admin: 09/07/18 18:02 Dose: Not Given Losartan Potassium (Cozaar) 25 mg PO DAILY [facility] Last Admin: 08/30/18 11:14 Dose: 25 mg Pantoprazole Sodium (Protonix Inj) 40 mg IVP Q12 [facility] Last Admin: 09/07/18 10:06 Dose: 40 mg Polyethylene Glycol/Electrolytes (Golytely) 2,000 ml PO ONCE ONE Stop: 09/08/18 20:01 - Labs Labs: 09/07/18 05:30 09/07/18 05:30 PT 14.7 SECONDS (9.4-12.5) H 09/07/18 05:30 INR 1.27 09/07/18 05:30 APTT 29.6 Seconds (25.1-36.5) 09/03/18 08:30 Attending/Attestation - Attestation I have personally seen and examined this patient.: Yes I have fully participated in the care of the patient.: Yes I have reviewed all pertinent clinical information, including history, physical exam and plan: Yes Notes (Text): This is an addendum to GI progress report dictated by the GI Fellow. The patient was seen and examined earlier. Medical records, lab studies, imagings were reviewed. Last 24 hours events reviewed. Agreed with the above treatment plan as outlined in GI Fellow 's notes with the addition of the following no further episodes of melena or bright red blood per Hemoglobin stable On full liquid diet Scheduled for colonoscopy on Wednesday One of the differential diagnosis should include a small bowel ulceration in view of the extensive ulcerations in the descending duodenum. 09/07/18 21:27
--- NOTE | 2018-09-07 11:32 | CP.PCM.PN ---
Subjective - Date & Time of Evaluation Date of Evaluation: 09/07/18 Time of Evaluation: 10:00 - Subjective Subjective: Patient seen and examined. No acute events over night. Reports feeling better. Objective - Vital Signs/Intake and Output Vital Signs (last 24 hours): Temp Pulse Resp BP Pulse Ox 98.8 F 101 H 14 112/50 L 100 09/07/18 00:00 09/07/18 10:06 09/07/18 07:00 09/07/18 10:17 09/07/18 07:00 Intake and Output: 09/07/18 09/07/18 06:59 18:59 Intake Total 10 Output Total 900 Balance -890 - Medications Medications: Current Medications Albuterol/Ipratropium (Duoneb 3 Mg/0.5 Mg (3 Ml) Ud) 3 ml IH [id number] [facility] Last Admin: 09/07/18 08:13 Dose: 3 ml Albuterol/Ipratropium (Duoneb 3 Mg/0.5 Mg (3 Ml) Ud) 3 ml IH Q2H PRN PRN Reason: Shortness of Breath Last Admin: 08/25/18 23:35 Dose: 3 ml Atorvastatin Calcium (Lipitor) 80 mg PO DIN [facility] Last Admin: 09/06/18 18:56 Dose: 80 mg Bisacodyl (Dulcolax) 10 mg PO ONCE ONE Stop: 09/08/18 16:01 Carvedilol (Coreg) 12.5 mg PO BID [facility] Last Admin: 09/07/18 10:06 Dose: 12.5 mg Furosemide (Lasix) 40 mg PO DAILY [facility] Last Admin: 09/07/18 10:17 Dose: 40 mg Glipizide (Glucotrol) 5 mg PO ACB [facility] Last Admin: 08/31/18 07:45 Dose: Not Given Insulin Human Lispro (Humalog High) 0 units SC Q6 [facility]; Protocol Last Admin: 09/07/18 08:56 Dose: Not Given Losartan Potassium (Cozaar) 25 mg PO DAILY [facility] Last Admin: 08/30/18 11:14 Dose: 25 mg Pantoprazole Sodium (Protonix Inj) 40 mg IVP Q12 [facility] Last Admin: 09/07/18 10:06 Dose: 40 mg Polyethylene Glycol/Electrolytes (Golytely) 2,000 ml PO ONCE ONE Stop: 09/07/18 15:01 Polyethylene Glycol/Electrolytes (Golytely) 2,000 ml PO ONCE ONE Stop: 09/08/18 20:01 - Labs Labs: 09/07/18 05:30 09/07/18 05:30 PT 14.7 SECONDS (9.4-12.5) H 09/07/18 05:30 INR 1.27 09/07/18 05:30 APTT 29.6 Seconds (25.1-36.5) 09/03/18 08:30 - Constitutional Appears: No Acute Distress - Head Exam Head Exam: NORMOCEPHALIC - Eye Exam Eye Exam: Normal appearance - ENT Exam ENT Exam: Mucous Membranes Moist - Respiratory Exam Respiratory Exam: NORMAL BREATHING PATTERN - Cardiovascular Exam Cardiovascular Exam: Tachycardia - GI/Abdominal Exam GI & Abdominal Exam: Soft - Neurological Exam Neurological Exam: Alert, Awake, Oriented x3 - Psychiatric Exam Psychiatric exam: Normal Mood - Skin Skin Exam: Dry, Warm Assessment and Plan - Assessment and Plan (Free Text) Assessment: 53M w/ upper GI bleed Hgb 8.2 Plan: -F/u colonoscopy results, pt scheduled for Wednesday - If rebleed recommend IR evaluation for embolization of GDA -No plans for surgical intervention at this present time -Will follow D/w Dr. Zackery Crump PGY3
--- NOTE | 2018-09-07 12:20 | CP.PCM.PN ---
Subjective - Date & Time of Evaluation Date of Evaluation: 09/07/18 Time of Evaluation: 10:10 - Subjective Subjective: Comfortable in bed, afebrile. Objective - Vital Signs/Intake and Output Vital Signs (last 24 hours): Temp Pulse Resp BP Pulse Ox 98.9 F 101 H 19 138/80 93 L 09/05/18 23:00 09/06/18 08:00 09/06/18 08:00 09/06/18 08:00 09/06/18 08:00 - Medications Medications: Current Medications Albuterol/Ipratropium (Duoneb 3 Mg/0.5 Mg (3 Ml) Ud) 3 ml IH [id number] [facility] Last Admin: 09/06/18 07:44 Dose: 3 ml Albuterol/Ipratropium (Duoneb 3 Mg/0.5 Mg (3 Ml) Ud) 3 ml IH Q2H PRN PRN Reason: Shortness of Breath Last Admin: 08/25/18 23:35 Dose: 3 ml Atorvastatin Calcium (Lipitor) 80 mg PO DIN [facility] Last Admin: 09/05/18 17:19 Dose: 80 mg Carvedilol (Coreg) 12.5 mg PO BID [facility] Docusate Sodium (Colace) 100 mg PO BID [facility] Last Admin: 09/05/18 17:52 Dose: Not Given Furosemide (Lasix) 40 mg PO DAILY [facility] Last Admin: 09/05/18 09:32 Dose: 40 mg Glipizide (Glucotrol) 5 mg PO ACB [facility] Last Admin: 08/31/18 07:45 Dose: Not Given Insulin Human Lispro (Humalog High) 0 units SC Q6 [facility]; Protocol Last Admin: 09/06/18 05:25 Dose: Not Given Lactulose (Enulose) 20 gm PO TID [facility] Last Admin: 09/01/18 17:03 Dose: 20 gm Losartan Potassium (Cozaar) 25 mg PO DAILY [facility] Last Admin: 08/30/18 11:14 Dose: 25 mg Pantoprazole Sodium (Protonix Inj) 40 mg IVP Q12 [facility] Last Admin: 09/05/18 21:34 Dose: 40 mg Rifaximin (Xifaxan) 550 mg PO BID [facility]; Protocol Last Admin: 09/05/18 17:54 Dose: 550 mg - Labs Labs: 09/06/18 11:35 09/06/18 05:00 PT 14.5 SECONDS (9.4-12.5) H 09/06/18 05:00 INR 1.26 09/06/18 05:00 APTT 29.6 Seconds (25.1-36.5) 09/03/18 08:30 - Constitutional Appears: Chronically Ill - Head Exam Head Exam: NORMAL INSPECTION - Neck Exam Neck Exam: absent: Meningismus - Respiratory Exam Respiratory Exam: Decreased Breath Sounds - Cardiovascular Exam Cardiovascular Exam: +S1, +S2 - GI/Abdominal Exam GI & Abdominal Exam: Soft. absent: Tenderness Assessment and Plan - Assessment and Plan (Free Text) Plan: Assessment SIRS due to acute on chronic systolic heart failure, R/O left sided HCAP, clinically improved chronic anemia with drop in hemoglobin, due to GI bleeding positive HIV PCR and positive 4th generation antibody test, acute versus chronic HIV infection S/P sepsis due to right lower lobe HCAP, S/P treatment with antibiotics obesity with BMI 35 COPD Plan T-cell count is above 200 - patient will need to be arranged to see an HIV specialist on discharge for further management of HIV and to be started on ART a s an outpatient ICU managing anemia and respiratory distress - continue to monitor off antibioticswill continue to monitor clinically follow up further plans of GI regarding GI bleeding overall prognosis is poor
--- NOTE | 2018-09-07 12:44 | CP.PCM.PN ---
<Rodrigo Isbell - Last Filed: 09/07/18 12:56> Subjective - Date & Time of Evaluation Date of Evaluation: 09/07/18 Time of Evaluation: 06:00 - Subjective Subjective: Patient examined at bedside. No acute events overnight. He is tolerating liquid diet. Offers no complaints at this time. Denies fevers, chills, nausea, vomiting, abdominal pain, diarrhea, hematochezia. Objective - Vital Signs/Intake and Output Vital Signs (last 24 hours): Temp Pulse Resp BP Pulse Ox 98.8 F 100 H 24 112/50 L 100 09/07/18 00:00 09/07/18 11:00 09/07/18 11:00 09/07/18 10:17 09/07/18 10:01 Intake and Output: 09/07/18 09/07/18 06:59 18:59 Intake Total 10 Output Total 900 Balance -890 - Medications Medications: Current Medications Albuterol/Ipratropium (Duoneb 3 Mg/0.5 Mg (3 Ml) Ud) 3 ml IH [id number] [facility] Last Admin: 09/07/18 08:13 Dose: 3 ml Albuterol/Ipratropium (Duoneb 3 Mg/0.5 Mg (3 Ml) Ud) 3 ml IH Q2H PRN PRN Reason: Shortness of Breath Last Admin: 08/25/18 23:35 Dose: 3 ml Atorvastatin Calcium (Lipitor) 80 mg PO DIN [facility] Last Admin: 09/06/18 18:56 Dose: 80 mg Bisacodyl (Dulcolax) 10 mg PO ONCE ONE Stop: 09/08/18 16:01 Carvedilol (Coreg) 12.5 mg PO BID [facility] Last Admin: 09/07/18 10:06 Dose: 12.5 mg Furosemide (Lasix) 40 mg PO DAILY [facility] Last Admin: 09/07/18 10:17 Dose: 40 mg Glipizide (Glucotrol) 5 mg PO ACB [facility] Last Admin: 08/31/18 07:45 Dose: Not Given Insulin Human Lispro (Humalog High) 0 units SC Q6 [facility]; Protocol Last Admin: 09/07/18 08:56 Dose: Not Given Losartan Potassium (Cozaar) 25 mg PO DAILY [facility] Last Admin: 08/30/18 11:14 Dose: 25 mg Pantoprazole Sodium (Protonix Inj) 40 mg IVP Q12 [facility] Last Admin: 09/07/18 10:06 Dose: 40 mg Polyethylene Glycol/Electrolytes (Golytely) 2,000 ml PO ONCE ONE Stop: 09/07/18 15:01 Polyethylene Glycol/Electrolytes (Golytely) 2,000 ml PO ONCE ONE Stop: 09/08/18 20:01 - Labs Labs: 09/07/18 05:30 09/07/18 05:30 PT 14.7 SECONDS (9.4-12.5) H 09/07/18 05:30 INR 1.27 09/07/18 05:30 APTT 29.6 Seconds (25.1-36.5) 09/03/18 08:30 - Constitutional Appears: Well, Non-toxic, No Acute Distress - Head Exam Head Exam: ATRAUMATIC, NORMAL INSPECTION, NORMOCEPHALIC - Eye Exam Eye Exam: EOMI, Normal appearance - ENT Exam ENT Exam: Mucous Membranes Moist - Respiratory Exam Respiratory Exam: NORMAL BREATHING PATTERN - Cardiovascular Exam Cardiovascular Exam: Irregular Rhythm - GI/Abdominal Exam GI & Abdominal Exam: Soft. absent: Tenderness - Neurological Exam Neurological Exam: Alert, Awake, CN II-XII Intact, Oriented x3 Assessment and Plan - Assessment and Plan (Free Text) Assessment: 53 year old male with past medical history of HIV not on HAART, COPD, diabetes mellitus type II, HTN, HLD, systolic CHF with EF of 39%, CAD with stent, lumbar radiculopathy, gout, and HIV presents with shortness of breath, admitted to ICU for management of UGIB. Plan: Anemia 2/2 UGIB - s/p 14 units of pRBCs, 2 FFPs, 1 Plts - Abdominal U/S showed patent portal vein, trace ascites. Limited study. - Bleeding scan 09/02 showed GI hemorrhage in likely in stomach with migration through duodenum and prox small bowel. - ICU consult placed - Dr. Eduardo - demetria appreciated - GI consult - Dr. Larsen - demetria appreciated. - Initial EGD showed esophageal, duodenal and gastric ulcers, with coffee-ground emesis vs blood found in antrum. Moderate portal HTN gastropathy. - Repeat EGD 09/02 showed clotted blood in gastric fundus and body as well as oozing hemorrhagic duodenal ulcer where a hemostatic clip was placed - Gen Surg consulted - no indication for surgical intervention at this time - Abd/pelvis CT shows minimal ascites, unremarkable gallbladder, no overt hepatic cirrhotic pattern - plan for colonoscopy as per GI on Wednesday will start prep solution today - Hgb 8.2 today continue to monitor Shortness of breath - CXR consistent with cardiomegaly - ECHO shows mild systolic congestive heart failure with EF of 39% from 04/2018 - Coreg - Cardio consult- Dr. Salgado - recs appreciated. Transitioned to Lasix 40 PO daily - Cefepime and Doxycycline for 4-7 days per ID for HCAP - 08/31 BCx neg x2 CAD with stent - EKG: Atrial fibrillation, RBBB - Troponinx3 elevated likely due to CORAZON - Cardiac catheterization in 12/2017 showed LAD lesion 80% - Continue with aspirin, antiHTN meds held - TSH: 2.41, LDL: 75 T2DM - Accuchecks - HgbA1c: 6.9 - Lispro high, Glipizide held CHARAN - Continue with CPAP/BiPap Hypertension - coreg Hyperlipidemia - Lipid panel unremarkable - Continue with lipitor HIV - HIV antibody reactive with 3.33 on PCR - CD4 count 361 - MRSA nose negative GI prophylaxis: Protonix 40 mg IV Q12 DVT prophylaxis contraindicated due to UGIB <Sonu Danielle - Last Filed: 09/07/18 15:51> Objective - Vital Signs/Intake and Output Vital Signs (last 24 hours): Temp Pulse Resp BP Pulse Ox 98.8 F 100 H 24 112/50 L 100 09/07/18 00:00 09/07/18 11:00 09/07/18 11:00 09/07/18 10:17 09/07/18 10:01 Intake and Output: 09/07/18 09/07/18 06:59 18:59 Intake Total 10 Output Total 900 Balance -890 - Medications Medications: Current Medications Albuterol/Ipratropium (Duoneb 3 Mg/0.5 Mg (3 Ml) Ud) 3 ml IH [id number] [facility] Last Admin: 09/07/18 13:25 Dose: Not Given Albuterol/Ipratropium (Duoneb 3 Mg/0.5 Mg (3 Ml) Ud) 3 ml IH Q2H PRN PRN Reason: Shortness of Breath Last Admin: 08/25/18 23:35 Dose: 3 ml Atorvastatin Calcium (Lipitor) 80 mg PO DIN [facility] Last Admin: 09/06/18 18:56 Dose: 80 mg Bisacodyl (Dulcolax) 10 mg PO ONCE ONE Stop: 09/08/18 16:01 Carvedilol (Coreg) 12.5 mg PO BID [facility] Last Admin: 09/07/18 10:06 Dose: 12.5 mg Furosemide (Lasix) 40 mg PO DAILY [facility] Last Admin: 09/07/18 10:17 Dose: 40 mg Glipizide (Glucotrol) 5 mg PO ACB [facility] Last Admin: 08/31/18 07:45 Dose: Not Given Insulin Human Lispro (Humalog High) 0 units SC Q6 [facility]; Protocol Last Admin: 09/07/18 08:56 Dose: Not Given Losartan Potassium (Cozaar) 25 mg PO DAILY [facility] Last Admin: 08/30/18 11:14 Dose: 25 mg Pantoprazole Sodium (Protonix Inj) 40 mg IVP Q12 [facility] Last Admin: 09/07/18 10:06 Dose: 40 mg Polyethylene Glycol/Electrolytes (Golytely) 2,000 ml PO ONCE ONE Stop: 09/08/18 20:01 - Labs Labs: 09/07/18 05:30 09/07/18 05:30 PT 14.7 SECONDS (9.4-12.5) H 09/07/18 05:30 INR 1.27 09/07/18 05:30 APTT 29.6 Seconds (25.1-36.5) 09/03/18 08:30 Attending/Attestation - Attestation I have personally seen and examined this patient.: Yes I have fully participated in the care of the patient.: Yes I have reviewed all pertinent clinical information, including history, physical exam and plan: Yes Notes (Text): 09/07/18 15:49 Medical record note made by the resident after discussion with my direction and input after the patient was personally seen and examined by me. I have reviewed the chart and agree that the record accurately reflects by personal performance of the history, physical exam, data review, and medical decision-making, in the course for the patient. I have also personally directed the plan of care. 53 yrs male with PMHx significant for HIV not on HAART, COPD, systolic CHF with biventricular failure, CAD s/p PCI, DM, HTN, hyperlipidemia and non compliance who presented to the hospital with shortness of breath.Patient had Acute blood loss anemia 2/2 severe PUD, required multiple PRBC transfusion, 2nd EGD on 09/02 with actively bleeding vessel Duodenal (FC1b) Ulcer SP epi injs and clip with hemostasis Patient hemoglobin was slowly dropping , and he had repeat Endoscopy 09/05/18 was negative for any active bleeding. Patient hemoglobin is stable. GI is planning for Colonoscopy 09/09/18 CHF , Stable with current dose of lasix, cozzar and coreg. Management plan was discussed in detail with patient. Education was provided. 09/07/18 15:51
[2018-09-07] MEDS: Peg-Electrolyte Oral Soln 4L (Golytely) PO ONE ×2 (18:04→18:16)
--- NOTE | 2018-09-07 21:22 | PN ---
DATE: 09/07/2018 SUBJECTIVE: The patient is comfortable on nasal O2. He denies any chest pain. No reported dizziness. No reported ventricular arrhythmia. PHYSICAL EXAMINATION VITAL SIGNS: Blood pressure 112/50, heart rate 101, respirations 21, temperature 98.8. HEENT: Pale conjunctivae. CHEST: Diminished breath sounds over the bases. HEART: S1, S2 regular. EXTREMITIES: 1+ pitting edema. LABORATORY DATA: Today's hemoglobin and hematocrit are 8.2 and 26.5, white count and platelet count are within normal limits. Today's SMA-7: Sodium 137, potassium 3.5, chloride 102, CO2 of 31, glucose 101, BUN 16, creatinine 0.8. Today's chest x-ray report, moderate cardiomegaly with mild vascular congestion. ASSESSMENT: 1. Biventricular failure. 2. Hypokalemia. 3. Upper gastrointestinal bleeding with a history of esophageal, gastric and duodenal ulcers. 4. Human immunodeficiency virus positive. 5. Anemia. RECOMMENDATIONS: Continue Coreg 12.5 mg twice a day, Cozaar 25 mg once a day, Glucotrol 5 mg once a day, Lasix 40 mg once a day, Lipitor 80 mg once a day, Protonix 40 mg intravenously four times daily. The patient can be transferred to telemetry from the cardiac point of view and is scheduled for colonoscopy on Wednesday. Beny Salgado MD
[2018-09-08] MEDS: Albuterol-Ipratrop 3 mg / 0.5 (3 ml) UD IH SCH ×4 (02:50→19:43)
--- NOTE | 2018-09-08 07:02 | CP.PCM.PN ---
<Elaina Baca L - Last Filed: 09/08/18 15:31> Subjective - Date & Time of Evaluation Date of Evaluation: 09/08/18 Time of Evaluation: 07:02 - Subjective Subjective: Resident Progress Note for Hospitalist Service Patient examined at bedside. No acute events overnight. Patient is tolerating liquid diet. Denies fevers, chills, chest pain, shortness of breath, abdominal pain, diarrhea, hematochezia. Objective - Vital Signs/Intake and Output Vital Signs (last 24 hours): Temp Pulse Resp BP Pulse Ox 99.4 F 89 21 116/73 99 09/08/18 00:00 09/08/18 05:57 09/08/18 05:00 09/08/18 00:00 09/08/18 03:00 Intake and Output: 09/08/18 09/08/18 06:59 18:59 Output Total 325 Balance -325 - Medications Medications: Current Medications Albuterol/Ipratropium (Duoneb 3 Mg/0.5 Mg (3 Ml) Ud) 3 ml IH [id number] [facility] Last Admin: 09/08/18 02:50 Dose: 3 ml Albuterol/Ipratropium (Duoneb 3 Mg/0.5 Mg (3 Ml) Ud) 3 ml IH Q2H PRN PRN Reason: Shortness of Breath Last Admin: 08/25/18 23:35 Dose: 3 ml Atorvastatin Calcium (Lipitor) 80 mg PO DIN [facility] Last Admin: 09/07/18 18:03 Dose: 80 mg Bisacodyl (Dulcolax) 10 mg PO ONCE ONE Stop: 09/08/18 16:01 Carvedilol (Coreg) 12.5 mg PO BID [facility] Last Admin: 09/07/18 18:03 Dose: 12.5 mg Furosemide (Lasix) 40 mg PO DAILY [facility] Last Admin: 09/07/18 10:17 Dose: 40 mg Glipizide (Glucotrol) 5 mg PO ACB [facility] Last Admin: 08/31/18 07:45 Dose: Not Given Insulin Human Lispro (Humalog High) 0 units SC Q6 [facility]; Protocol Last Admin: 09/08/18 00:00 Dose: Not Given Losartan Potassium (Cozaar) 25 mg PO DAILY [facility] Last Admin: 08/30/18 11:14 Dose: 25 mg Pantoprazole Sodium (Protonix Inj) 40 mg IVP Q12 [facility] Last Admin: 09/07/18 22:47 Dose: 40 mg Polyethylene Glycol/Electrolytes (Golytely) 2,000 ml PO ONCE ONE Stop: 09/08/18 20:01 - Labs Labs: 09/07/18 05:30 09/07/18 05:30 PT 14.7 SECONDS (9.4-12.5) H 09/07/18 05:30 INR 1.27 09/07/18 05:30 APTT 29.6 Seconds (25.1-36.5) 09/03/18 08:30 - Additional Findings Additional findings: - Constitutional Appears: Well, Non-toxic, No Acute Distress - Head Exam Head Exam: ATRAUMATIC, NORMAL INSPECTION, NORMOCEPHALIC - Eye Exam Eye Exam: EOMI, Normal appearance - ENT Exam ENT Exam: Mucous Membranes Moist - Respiratory Exam Respiratory Exam: NORMAL BREATHING PATTERN - Cardiovascular Exam Cardiovascular Exam: Irregular Rhythm - GI/Abdominal Exam GI & Abdominal Exam: Soft. absent: Tenderness - Neurological Exam Neurological Exam: Alert, Awake, CN II-XII Intact, Oriented x3 Assessment and Plan - Assessment and Plan (Free Text) Assessment: 53 year old male with past medical history of HIV not on HAART, COPD, diabetes mellitus type II, HTN, HLD, systolic CHF with EF of 39%, CAD with stent, lumbar radiculopathy, gout, and HIV presented with shortness of breath and admitted for management of UGIB. Plan: Anemia 2/2 UGIB - s/p 14 units of pRBCs, 2 FFPs, 1 Plts - Abdominal U/S showed patent portal vein, trace ascites. Limited study. - Bleeding scan 09/02 showed GI hemorrhage in likely in stomach with migration through duodenum and prox small bowel. - ICU consult placed - Dr. Eduardo - demetria appreciated - GI consult - Dr. Larsen - demetria appreciated. - Initial EGD showed esophageal, duodenal and gastric ulcers, with coffee-ground emesis vs blood found in antrum. Moderate portal HTN gastropathy. - Repeat EGD 09/02 showed clotted blood in gastric fundus and body as well as oozing hemorrhagic duodenal ulcer where a hemostatic clip was placed - Gen Surg consulted - no indication for surgical intervention at this time - Abd/pelvis CT shows minimal ascites, unremarkable gallbladder, no overt hepatic cirrhotic pattern - plan for colonoscopy as per GI on Wednesday - Hgb stable Shortness of breath - CXR consistent with cardiomegaly - ECHO shows mild systolic congestive heart failure with EF of 39% from 04/2018 - Coreg - Cardio consult- Dr. Salgado - recs appreciated. Transitioned to Lasix 40 PO daily - Cefepime and Doxycycline for 4-7 days per ID for HCAP - 08/31 BCx neg x2 CAD with stent - EKG: Atrial fibrillation, RBBB - Troponinx3 elevated likely due to CORAZON - Cardiac catheterization in 12/2017 showed LAD lesion 80% - Continue with aspirin, antiHTN meds held - TSH: 2.41, LDL: 75 T2DM - Accuchecks - HgbA1c: 6.9 - Lispro high, Glipizide held CHARAN - Continue with CPAP/BiPap Hypertension - coreg - Losartan resumed Hyperlipidemia - Lipid panel unremarkable - Continue with lipitor HIV - HIV antibody reactive with 3.33 on PCR - CD4 count 361 - MRSA nose negative GI prophylaxis: Protonix 40 mg IV Q12 DVT prophylaxis contraindicated due to UGIB Case discussed with Dr. Shashi Baca PGY-1 <Sonu Danielle - Last Filed: 09/08/18 15:58> Objective - Vital Signs/Intake and Output Vital Signs (last 24 hours): Temp Pulse Resp BP Pulse Ox 99.4 F 89 21 112/56 L 99 09/08/18 00:00 09/08/18 05:57 09/08/18 05:00 09/08/18 12:34 09/08/18 03:00 Intake and Output: 09/08/18 09/08/18 06:59 18:59 Output Total 325 Balance -325 - Medications Medications: Current Medications Albuterol/Ipratropium (Duoneb 3 Mg/0.5 Mg (3 Ml) Ud) 3 ml IH [id number] [facility] Last Admin: 09/08/18 13:14 Dose: 3 ml Albuterol/Ipratropium (Duoneb 3 Mg/0.5 Mg (3 Ml) Ud) 3 ml IH Q2H PRN PRN Reason: Shortness of Breath Last Admin: 08/25/18 23:35 Dose: 3 ml Atorvastatin Calcium (Lipitor) 80 mg PO DIN [facility] Last Admin: 09/07/18 18:03 Dose: 80 mg Bisacodyl (Dulcolax) 10 mg PO ONCE ONE Stop: 09/08/18 16:01 Carvedilol (Coreg) 12.5 mg PO BID [facility] Last Admin: 09/07/18 18:03 Dose: 12.5 mg Furosemide (Lasix) 40 mg PO DAILY [facility] Last Admin: 09/08/18 12:34 Dose: 40 mg Glipizide (Glucotrol) 5 mg PO ACB [facility] Last Admin: 08/31/18 07:45 Dose: Not Given Insulin Human Lispro (Humalog High) 0 units SC Q6 [facility]; Protocol Last Admin: 09/08/18 12:47 Dose: 2 u Losartan Potassium (Cozaar) 25 mg PO DAILY [facility] Last Admin: 09/08/18 12:33 Dose: 25 mg Pantoprazole Sodium (Protonix Inj) 40 mg IVP Q12 [facility] Last Admin: 09/08/18 12:36 Dose: 40 mg Polyethylene Glycol/Electrolytes (Golytely) 4,000 ml PO ONCE ONE Stop: 09/08/18 16:01 - Labs Labs: 09/08/18 06:30 09/08/18 06:30 PT 15.2 SECONDS (9.4-12.5) H 09/08/18 06:30 INR 1.31 09/08/18 06:30 APTT 29.6 Seconds (25.1-36.5) 09/03/18 08:30 Attending/Attestation - Attestation I have personally seen and examined this patient.: Yes I have fully participated in the care of the patient.: Yes I have reviewed all pertinent clinical information, including history, physical exam and plan: Yes Notes (Text): 09/08/18 15:57 Patient was seen and examined with medical voucher clerk. Agreed with assessment and plan. 53 yrs male with PMHx significant for HIV not on HAART, COPD, systolic CHF with biventricular failure, CAD s/p PCI, DM, HTN, hyperlipidemia and non compliance who presented to the hospital with shortness of breath.Patient had Acute blood loss anemia 2/2 severe PUD, required multiple PRBC transfusion, 2nd EGD on 09/02 with actively bleeding vessel Duodenal (FC1b) Ulcer SP epi injs and clip with hemostasis Patient hemoglobin was slowly dropping , and he had repeat Endoscopy 09/05/18 was negative for any active bleeding. Patient hemoglobin is stable. GI is planning for Colonoscopy 09/09/18 CHF , Stable with current dose of lasix, cozzar and coreg. Patient is SP HACAP treatment, off antibiotics. Management plan was discussed in detail with patient. Education was provided
[2018-09-08 07:09] LABS: BASO # 0.01 K/mm3 (0.0-2.0); BASO % 0.1 % (0.0-3.0); EOS # 0.2 (0.0-0.7); EOS % 2.6 % (1.5-5.0); GRAN # 4.72 (1.4-6.5); HEMOGLOBIN 8.3 g/dL (14.0-18.0); LYMPH # 1.8 (1.2-3.4); LYMPH % 24.2 % (22.0-35.0); MEAN CELL VOLUME 88.8 fl (80.0-105.0); MEAN CORPUSCULAR HEMOGLOBIN 28.1 pg (25.0-35.0); MEAN CORPUSCULAR HGB CONC 31.7 g/dl (31.0-37.0); MEAN PLATELET VOLUME 10.5 fl (7.0-11.0); MONO # 0.7 (0.1-0.6); MONO % 9.1 % (1.0-6.0); RBC 2.95 10^6/uL (3.5-6.1); RED CELL DISTRIBUTION WIDTH 17.9 % (11.5-14.5); WHITE BLOOD COUNT 7.4 10^3/uL (4.5-11.0)
[2018-09-08 07:14] LABS: INR 1.31; PROTHROMBIN TIME 15.2 SECONDS (9.4-12.5)
[2018-09-08 07:29] LABS: ALB/GLOB RATIO 0.8 (1.1-1.8); ALBUMIN 3.1 g/dL (3.0-4.8); ALT/SGPT 34 U/L (7-56); AST/SGOT 42 U/L (17-59); BLOOD UREA NITROGEN 17 mg/dL (7-21); CALCIUM 8.1 mg/dL (8.4-10.5); GFR NON-AFRICAN AMERICAN > 60
--- NOTE | 2018-09-08 08:07 | CP.PCM.PN ---
Subjective - Date & Time of Evaluation Date of Evaluation: 09/08/18 Time of Evaluation: 08:04 - Subjective Subjective: Lukasz Hayden, PGY1 Surgery Progress Note for Dr. Vizcarra Patient was seen and examined at bedside this morning. Vital signs are stable; afebrile overnight. No adverse events overnight. Hgb has been stable. Patient denies abdominal pain, n/v/d, and bloody bowel movements. Objective - Vital Signs/Intake and Output Vital Signs (last 24 hours): Temp Pulse Resp BP Pulse Ox 99.4 F 89 21 116/73 99 09/08/18 00:00 09/08/18 05:57 09/08/18 05:00 09/08/18 00:00 09/08/18 03:00 Intake and Output: 09/08/18 09/08/18 06:59 18:59 Output Total 325 Balance -325 - Medications Medications: Current Medications Albuterol/Ipratropium (Duoneb 3 Mg/0.5 Mg (3 Ml) Ud) 3 ml IH [id number] [facility] Last Admin: 09/08/18 02:50 Dose: 3 ml Albuterol/Ipratropium (Duoneb 3 Mg/0.5 Mg (3 Ml) Ud) 3 ml IH Q2H PRN PRN Reason: Shortness of Breath Last Admin: 08/25/18 23:35 Dose: 3 ml Atorvastatin Calcium (Lipitor) 80 mg PO DIN [facility] Last Admin: 09/07/18 18:03 Dose: 80 mg Bisacodyl (Dulcolax) 10 mg PO ONCE ONE Stop: 09/08/18 16:01 Carvedilol (Coreg) 12.5 mg PO BID [facility] Last Admin: 09/07/18 18:03 Dose: 12.5 mg Furosemide (Lasix) 40 mg PO DAILY [facility] Last Admin: 09/07/18 10:17 Dose: 40 mg Glipizide (Glucotrol) 5 mg PO ACB [facility] Last Admin: 08/31/18 07:45 Dose: Not Given Insulin Human Lispro (Humalog High) 0 units SC Q6 [facility]; Protocol Last Admin: 09/08/18 00:00 Dose: Not Given Losartan Potassium (Cozaar) 25 mg PO DAILY [facility] Last Admin: 08/30/18 11:14 Dose: 25 mg Pantoprazole Sodium (Protonix Inj) 40 mg IVP Q12 [facility] Last Admin: 09/07/18 22:47 Dose: 40 mg Polyethylene Glycol/Electrolytes (Golytely) 2,000 ml PO ONCE ONE Stop: 09/08/18 20:01 - Labs Labs: 09/08/18 06:30 09/08/18 06:30 PT 15.2 SECONDS (9.4-12.5) H 09/08/18 06:30 INR 1.31 09/08/18 06:30 APTT 29.6 Seconds (25.1-36.5) 09/03/18 08:30 - Constitutional Appears: No Acute Distress - Head Exam Head Exam: ATRAUMATIC, NORMAL INSPECTION, NORMOCEPHALIC - Eye Exam Eye Exam: EOMI, Normal appearance - ENT Exam ENT Exam: Mucous Membranes Moist, Normal Exam - Respiratory Exam Respiratory Exam: Clear to Ausculation Bilateral, NORMAL BREATHING PATTERN. absent: Chest Wall Tenderness, Rales, Rhonchi, Wheezes - Cardiovascular Exam Cardiovascular Exam: RRR, +S1, +S2 - GI/Abdominal Exam GI & Abdominal Exam: Soft, Normal Bowel Sounds, Organomegaly (Hepatomegaly ). absent: Firm, Guarding, Rigid, Tenderness, Rebound - Extremities Exam Extremities Exam: Full ROM, Normal Capillary Refill. absent: Joint Swelling, Pedal Edema - Neurological Exam Neurological Exam: Alert, Oriented x3 - Skin Skin Exam: Dry, Intact, Normal Color, Warm Assessment and Plan - Assessment and Plan (Free Text) Assessment: 53 y/o M with Upper GI Bleed s/p endoscopy with clip placement of bleeding duodenal ulcer Plan: - No plans for surgical intervention at this time - Hgb is currently stable at 8.3 - f/u colonoscopy results; scheduled for Wednesday, 09/09 - Surgery team will continue to follow Case was discussed and reviewed with Dr. Vizcarra.
[2018-09-08] MEDS ORDERED: Potassium Chloride 20 mEq ER Tab PO STA (08:26)
--- NOTE | 2018-09-08 10:48 | CP.PCM.PN ---
Subjective - Date & Time of Evaluation Date of Evaluation: 09/08/18 Time of Evaluation: 07:00 - Subjective Subjective: PGY6 GI Fellow Progress Note Patient seen and examined bedside this morning. The patient has no complaints presently. He is tolerating liquid diet and there has been no evidence of overt GI bleeding. 12 system ROS performed and negative except where stated Objective - Vital Signs/Intake and Output Vital Signs (last 24 hours): Temp Pulse Resp BP Pulse Ox 99.4 F 89 21 116/73 99 09/08/18 00:00 09/08/18 05:57 09/08/18 05:00 09/08/18 00:00 09/08/18 03:00 Intake and Output: 09/08/18 09/08/18 06:59 18:59 Output Total 325 Balance -325 - Medications Medications: Current Medications Albuterol/Ipratropium (Duoneb 3 Mg/0.5 Mg (3 Ml) Ud) 3 ml IH [id number] [facility] Last Admin: 09/08/18 08:50 Dose: 3 ml Albuterol/Ipratropium (Duoneb 3 Mg/0.5 Mg (3 Ml) Ud) 3 ml IH Q2H PRN PRN Reason: Shortness of Breath Last Admin: 08/25/18 23:35 Dose: 3 ml Atorvastatin Calcium (Lipitor) 80 mg PO DIN [facility] Last Admin: 09/07/18 18:03 Dose: 80 mg Bisacodyl (Dulcolax) 10 mg PO ONCE ONE Stop: 09/08/18 16:01 Carvedilol (Coreg) 12.5 mg PO BID [facility] Last Admin: 09/07/18 18:03 Dose: 12.5 mg Furosemide (Lasix) 40 mg PO DAILY [facility] Last Admin: 09/07/18 10:17 Dose: 40 mg Glipizide (Glucotrol) 5 mg PO ACB [facility] Last Admin: 08/31/18 07:45 Dose: Not Given Insulin Human Lispro (Humalog High) 0 units SC Q6 [facility]; Protocol Last Admin: 09/08/18 00:00 Dose: Not Given Losartan Potassium (Cozaar) 25 mg PO DAILY [facility] Last Admin: 08/30/18 11:14 Dose: 25 mg Pantoprazole Sodium (Protonix Inj) 40 mg IVP Q12 [facility] Last Admin: 09/07/18 22:47 Dose: 40 mg Polyethylene Glycol/Electrolytes (Golytely) 4,000 ml PO ONCE ONE Stop: 09/08/18 16:01 - Labs Labs: 09/08/18 06:30 09/08/18 06:30 PT 15.2 SECONDS (9.4-12.5) H 09/08/18 06:30 INR 1.31 09/08/18 06:30 APTT 29.6 Seconds (25.1-36.5) 09/03/18 08:30 - Constitutional Appears: Non-toxic, No Acute Distress - Eye Exam Eye Exam: EOMI, PERRL - ENT Exam ENT Exam: Mucous Membranes Moist - Respiratory Exam Respiratory Exam: Clear to Ausculation Bilateral. absent: Rales, Rhonchi, Wheezes - Cardiovascular Exam Cardiovascular Exam: RRR, +S1, +S2 - GI/Abdominal Exam GI & Abdominal Exam: Soft, Normal Bowel Sounds. absent: Distended, Firm, Guarding, Rigid, Tenderness, Organomegaly - Extremities Exam Extremities Exam: Normal Inspection. absent: Pedal Edema - Neurological Exam Neurological Exam: Alert, Awake, Oriented x3 - Psychiatric Exam Psychiatric exam: Normal Affect, Normal Mood - Skin Skin Exam: Dry, Warm Assessment and Plan - Assessment and Plan (Free Text) Assessment: Patient is a 53yo male with PMHx significant for HIV not on HAART, COPD, systolic CHF with biventricular failure, CAD s/p PCI, DM, HTN, hyperlipidemia who presented to the hospital 5 days ago with shortness of breath -Acute blood loss anemia 2/2 severe PUD -Biventricular heart failure -COPD with acute exacerbation -CAD -HIV Plan: -HGB stable and unchanged today -Transfusion support as necessary -Plan for colonoscopy tomorrow - 2L prep was not administered as directed yesterday -4L GoLytely prep to be given today with 10mg Dulcolax tablet -Clear liquid diet, NPO past MN -Continue to monitor clinical course
--- NOTE | 2018-09-08 11:40 | CP.PCM.PN ---
Subjective - Date & Time of Evaluation Date of Evaluation: 09/08/18 Time of Evaluation: 08:15 - Subjective Subjective: Afebrile, non-toxic. Objective - Vital Signs/Intake and Output Vital Signs (last 24 hours): Temp Pulse Resp BP Pulse Ox 98.8 F 100 H 24 112/50 L 100 09/07/18 00:00 09/07/18 11:00 09/07/18 11:00 09/07/18 10:17 09/07/18 10:01 Intake and Output: 09/07/18 09/07/18 06:59 18:59 Intake Total 10 Output Total 900 Balance -890 - Medications Medications: Current Medications Albuterol/Ipratropium (Duoneb 3 Mg/0.5 Mg (3 Ml) Ud) 3 ml IH [id number] [facility] Last Admin: 09/07/18 08:13 Dose: 3 ml Albuterol/Ipratropium (Duoneb 3 Mg/0.5 Mg (3 Ml) Ud) 3 ml IH Q2H PRN PRN Reason: Shortness of Breath Last Admin: 08/25/18 23:35 Dose: 3 ml Atorvastatin Calcium (Lipitor) 80 mg PO DIN [facility] Last Admin: 09/06/18 18:56 Dose: 80 mg Bisacodyl (Dulcolax) 10 mg PO ONCE ONE Stop: 09/08/18 16:01 Carvedilol (Coreg) 12.5 mg PO BID [facility] Last Admin: 09/07/18 10:06 Dose: 12.5 mg Furosemide (Lasix) 40 mg PO DAILY [facility] Last Admin: 09/07/18 10:17 Dose: 40 mg Glipizide (Glucotrol) 5 mg PO ACB [facility] Last Admin: 08/31/18 07:45 Dose: Not Given Insulin Human Lispro (Humalog High) 0 units SC Q6 [facility]; Protocol Last Admin: 09/07/18 08:56 Dose: Not Given Losartan Potassium (Cozaar) 25 mg PO DAILY [facility] Last Admin: 08/30/18 11:14 Dose: 25 mg Pantoprazole Sodium (Protonix Inj) 40 mg IVP Q12 [facility] Last Admin: 09/07/18 10:06 Dose: 40 mg Polyethylene Glycol/Electrolytes (Golytely) 2,000 ml PO ONCE ONE Stop: 09/07/18 15:01 Polyethylene Glycol/Electrolytes (Golytely) 2,000 ml PO ONCE ONE Stop: 09/08/18 20:01 - Labs Labs: 09/07/18 05:30 09/07/18 05:30 PT 14.7 SECONDS (9.4-12.5) H 09/07/18 05:30 INR 1.27 09/07/18 05:30 APTT 29.6 Seconds (25.1-36.5) 09/03/18 08:30 - Constitutional Appears: Chronically Ill - Head Exam Head Exam: NORMAL INSPECTION - Neck Exam Neck Exam: absent: Meningismus - Respiratory Exam Respiratory Exam: Decreased Breath Sounds - Cardiovascular Exam Cardiovascular Exam: +S1, +S2 - GI/Abdominal Exam GI & Abdominal Exam: Soft. absent: Tenderness Assessment and Plan - Assessment and Plan (Free Text) Plan: Assessment SIRS due to acute on chronic systolic heart failure, R/O left sided HCAP, clinically improved chronic anemia with drop in hemoglobin, due to GI bleeding positive HIV PCR and positive 4th generation antibody test, acute versus chronic HIV infection S/P sepsis due to right lower lobe HCAP, S/P treatment with antibiotics obesity with BMI 35 COPD Plan T-cell count is above 200 - patient will need to be arranged to see an HIV specialist on discharge for further management of HIV and to be started on ART as an outpatient ICU managing anemia and respiratory distress - continue to monitor off antibiotics since he is at risk for nosocomial infections patient had EGD which showed duodenal ulcer and will get colonoscopy tomorrow as per GI overall prognosis is poor
[2018-09-08] MEDS: Insulin Lispro (HUMAlog) HIGH Coverage SC SCH ×3 (12:37→12:47)
--- NOTE | 2018-09-08 14:37 | PN ---
DATE: 09/08/2018 SUBJECTIVE: The patient denies chest pain. He does not appear to be in any distress. PHYSICAL EXAMINATION: VITAL SIGNS: Blood pressure 116/73, heart rate 94, temperature 99.4, and respirations 20. HEENT: Pale conjunctivae. CHEST: Absent breath sounds over the lung bases. HEART: S1 and S2, regular and distant. ABDOMEN: Soft. EXTREMITIES: No edema. LABORATORY DATA: Today's hemoglobin and hematocrit are 8.3 and 26.6, white count and platelet count are within normal limits. Today's SMA-7: Sodium 136, potassium 3.5, chloride 102, CO2 of 30, glucose 99, BUN 17, and creatinine 0.7. Calcium is 8.1. ASSESSMENT: 1. Biventricular failure. 2. Upper gastrointestinal bleeding. The recent upper endoscopy revealed nonbleeding gastric ulcer, duodenitis, nonbleeding esophageal ulcer, and nonbleeding duodenal ulcer. 3. Hypokalemia. 4. Anemia. 5. Human immunodeficiency virus positive. 6. Hypertension and diabetes mellitus. RECOMMENDATIONS: Continue Coreg 12.5 mg twice a day, Cozaar 25 mg once a day, glipizide 5 mg once a day, Lasix 40 mg p.o. once a day, Lipitor 80 mg once a day, Protonix 40 mg intravenously twice a day. Beny Salgado MD MTDD
[2018-09-08] MEDS ORDERED: Bisacodyl 5mg EC Tab PO ONE (16:00)
[2018-09-08] MEDS ORDERED: Peg-Electrolyte Oral Soln 4L (Golytely) PO ONE ×2 (16:00→20:00)
[2018-09-08] MEDS ORDERED: Morphine 2 mg/ml ISec IVP ONE (17:02)
[2018-09-08] MEDS: Lidocaine 5% Patch TD SCH (18:16)
[2018-09-09] MEDS: Insulin Lispro (HUMAlog) HIGH Coverage SC SCH ×3 (01:00→17:33)
[2018-09-09] MEDS: Albuterol-Ipratrop 3 mg / 0.5 (3 ml) UD IH SCH ×4 (02:09→19:41)
[2018-09-09 06:38] LABS: INR 1.37; PROTHROMBIN TIME 15.9 SECONDS (9.4-12.5)
[2018-09-09 06:54] LABS: BASO # 0.04 K/mm3 (0.0-2.0); BASO % 0.6 % (0.0-3.0); EOS # 0.2 (0.0-0.7); EOS % 3.2 % (1.5-5.0); GRAN # 3.39 (1.4-6.5); GRAN % 50.8 % (50.0-68.0); HEMOGLOBIN 8.2 g/dL (14.0-18.0); LYMPH # 1.8 (1.2-3.4); LYMPH % 26.9 % (22.0-35.0); MEAN CELL VOLUME 88.7 fl (80.0-105.0); MEAN CORPUSCULAR HGB CONC 31.5 g/dl (31.0-37.0); MEAN PLATELET VOLUME 10.5 fl (7.0-11.0); MONO # 1.2 (0.1-0.6); MONO % 18.5 % (1.0-6.0); RBC 2.93 10^6/uL (3.5-6.1); WHITE BLOOD COUNT 6.7 10^3/uL (4.5-11.0)
--- NOTE | 2018-09-09 07:01 | CP.PCM.PN ---
<Elaina Baca L - Last Filed: 09/09/18 15:47> Subjective - Date & Time of Evaluation Date of Evaluation: 09/09/18 Time of Evaluation: 07:01 - Subjective Subjective: Resident Progress Note for Hospitalist Service Patient examined at bedside. No acute events overnight. Patient went for colonoscopy today however bowel prep was inadequate and procedure was aborted. Plan for colonoscopy on Wednesday as per GI recommendations. Patient denies fevers, chills, chest pain, shortness of breath, abdominal pain, hematochezia, diarrhea. Objective - Vital Signs/Intake and Output Vital Signs (last 24 hours): Temp Pulse Resp BP Pulse Ox 98.1 F 58 L 20 124/78 99 09/08/18 12:00 09/09/18 06:00 09/08/18 21:00 09/08/18 18:14 09/08/18 03:00 Intake and Output: 09/09/18 09/09/18 06:59 18:59 Output Total 600 Balance -600 - Medications Medications: Current Medications Albuterol/Ipratropium (Duoneb 3 Mg/0.5 Mg (3 Ml) Ud) 3 ml IH [id number] [facility] Last Admin: 09/09/18 02:09 Dose: Not Given Albuterol/Ipratropium (Duoneb 3 Mg/0.5 Mg (3 Ml) Ud) 3 ml IH Q2H PRN PRN Reason: Shortness of Breath Last Admin: 08/25/18 23:35 Dose: 3 ml Atorvastatin Calcium (Lipitor) 80 mg PO DIN [facility] Last Admin: 09/08/18 18:14 Dose: 80 mg Carvedilol (Coreg) 12.5 mg PO BID [facility] Last Admin: 09/08/18 18:14 Dose: 12.5 mg Furosemide (Lasix) 40 mg PO DAILY [facility] Last Admin: 09/08/18 12:34 Dose: 40 mg Glipizide (Glucotrol) 5 mg PO ACB [facility] Last Admin: 08/31/18 07:45 Dose: Not Given Insulin Human Lispro (Humalog High) 0 units SC Q6 [facility]; Protocol Last Admin: 09/09/18 01:00 Dose: Not Given Lidocaine (Lidoderm) 1 ea TD DAILY [facility] Last Admin: 09/08/18 18:16 Dose: 1 ea Losartan Potassium (Cozaar) 25 mg PO DAILY [facility] Last Admin: 09/08/18 12:33 Dose: 25 mg Pantoprazole Sodium (Protonix Inj) 40 mg IVP Q12 [facility] Last Admin: 09/08/18 21:17 Dose: 40 mg - Labs Labs: 09/08/18 06:30 09/08/18 06:30 PT 15.9 SECONDS (9.4-12.5) H 09/09/18 06:00 INR 1.37 09/09/18 06:00 APTT 29.6 Seconds (25.1-36.5) 09/03/18 08:30 - Additional Findings Additional findings: - Constitutional Appears: Well, Non-toxic, No Acute Distress - Head Exam Head Exam: ATRAUMATIC, NORMAL INSPECTION, NORMOCEPHALIC - Eye Exam Eye Exam: EOMI, Normal appearance - ENT Exam ENT Exam: Mucous Membranes Moist - Respiratory Exam Respiratory Exam: NORMAL BREATHING PATTERN - Cardiovascular Exam Cardiovascular Exam: Irregular Rhythm - GI/Abdominal Exam GI & Abdominal Exam: Soft. absent: Tenderness - Neurological Exam Neurological Exam: Alert, Awake, CN II-XII Intact, Oriented x3 Assessment and Plan - Assessment and Plan (Free Text) Assessment: 53 year old male with past medical history of HIV not on HAART, COPD, diabetes mellitus type II, HTN, HLD, systolic CHF with EF of 39%, CAD with stent, lumbar radiculopathy, gout, and HIV presented with shortness of breath and admitted for management of UGIB. Plan: Anemia 2/2 UGIB - s/p 14 units of pRBCs, 2 FFPs, 1 Plts - Abdominal U/S showed patent portal vein, trace ascites. Limited study. - Bleeding scan 09/02 showed GI hemorrhage in likely in stomach with migration through duodenum and prox small bowel. - ICU consult placed - Dr. Eduardo - demetria appreciated - GI consult - Dr. Suzie augustin appreciated. - Initial EGD showed esophageal, duodenal and gastric ulcers, with coffee-ground emesis vs blood found in antrum. Moderate portal HTN gastropathy. - Repeat EGD 09/02 showed clotted blood in gastric fundus and body as well as oozing hemorrhagic duodenal ulcer where a hemostatic clip was placed - Gen Surg consulted - no indication for surgical intervention at this time - Abd/pelvis CT shows minimal ascites, unremarkable gallbladder, no overt hepatic cirrhotic pattern - plan for colonoscopy Mondy as per GI - Hgb stable Shortness of breath - CXR consistent with cardiomegaly - ECHO shows mild systolic congestive heart failure with EF of 39% from 04/2018 - Coreg 12.5 mg PO BID - Cardio consult- Dr. Salgado - recs appreciated - Lasix 40 PO daily - Cefepime and Doxycycline for 4-7 days per ID for HCAP - 08/31 BCx neg x2 CAD with stent - EKG: Atrial fibrillation, RBBB - Troponinx3 elevated likely due to CORAZON - Cardiac catheterization in 12/2017 showed LAD lesion 80% - Continue with aspirin, antiHTN meds held - TSH: 2.41, LDL: 75 T2DM - Accuchecks - HgbA1c: 6.9 - Lispro high, Glipizide held CAHRAN - Continue with CPAP/Bipap Hypertension - Coreg 12.5 mg PO BID - Losartan 25 mg PO daily Hyperlipidemia - Lipid panel unremarkable - Continue with lipitor 80 mg PO DIN HIV - HIV antibody reactive with 3.33 on PCR - CD4 count 361 - MRSA nose negative GI prophylaxis: Protonix 40 mg IV Q12 DVT prophylaxis contraindicated due to UGIB Case discussed with Dr. Esther Baca PGY-1 <Kavon Santana - Last Filed: 09/09/18 16:18> Objective - Vital Signs/Intake and Output Vital Signs (last 24 hours): Temp Pulse Resp BP Pulse Ox 98.3 F 81 16 120/78 98 09/09/18 13:20 09/09/18 13:20 09/09/18 13:20 09/09/18 13:20 09/09/18 13:20 Intake and Output: 09/09/18 09/09/18 06:59 18:59 Output Total 600 Balance -600 - Medications Medications: Current Medications Albuterol/Ipratropium (Duoneb 3 Mg/0.5 Mg (3 Ml) Ud) 3 ml IH [id number] [facility] Last Admin: 09/09/18 13:56 Dose: Not Given Albuterol/Ipratropium (Duoneb 3 Mg/0.5 Mg (3 Ml) Ud) 3 ml IH Q2H PRN PRN Reason: Shortness of Breath Last Admin: 08/25/18 23:35 Dose: 3 ml Atorvastatin Calcium (Lipitor) 80 mg PO DIN [facility] Last Admin: 09/08/18 18:14 Dose: 80 mg Carvedilol (Coreg) 12.5 mg PO BID [facility] Last Admin: 09/09/18 09:13 Dose: 12.5 mg Furosemide (Lasix) 40 mg PO DAILY [facility] Last Admin: 09/09/18 09:15 Dose: 40 mg Glipizide (Glucotrol) 5 mg PO ACB [facility] Last Admin: 08/31/18 07:45 Dose: Not Given Insulin Human Lispro (Humalog High) 0 units SC Q6 [facility]; Protocol Last Admin: 09/09/18 11:42 Dose: Not Given Lidocaine (Lidoderm) 1 ea TD DAILY [facility] Last Admin: 09/09/18 09:15 Dose: 1 ea Losartan Potassium (Cozaar) 25 mg PO DAILY [facility] Last Admin: 09/09/18 09:14 Dose: 25 mg Pantoprazole Sodium (Protonix Inj) 40 mg IVP Q12 [facility] Last Admin: 09/09/18 09:15 Dose: 40 mg - Labs Labs: 09/09/18 06:00 09/09/18 06:00 PT 15.9 SECONDS (9.4-12.5) H 09/09/18 06:00 INR 1.37 09/09/18 06:00 APTT 29.6 Seconds (25.1-36.5) 09/03/18 08:30 Attending/Attestation - Attestation I have personally seen and examined this patient.: Yes I have fully participated in the care of the patient.: Yes I have reviewed all pertinent clinical information, including history, physical exam and plan: Yes Notes (Text): 09/09/18 16:11 53 year old male with past medical history of HIV not on HAART, COPD, CAD, CHF, and diabetes who initially presented with shortness of breath, treated for CHF exacerbation. Hospital course was complicated with acute blood loss anemia requiring multiple PRBC transfusions. EGD showed esphageal, duodenal and gastric ulcers with moderate portal hypertensive gastropathy. Repeat EGD showed clotted blood in gastric fundus and body with oozing hemorrhagic duodenal ulcer with hemostatic clip placement. GI is following and planned for colonoscopy today. Patient is s/p antibiotics for HCAP. He is on coreg, cozaar and lasix. PT has been recommended STEPHANIE. Will request for follow up for follow up recommendations. ID is following for HIV. Patient will need close outpatient follow up. Kavon Santana MD Hospitalist.
[2018-09-09 07:29] LABS: ALB/GLOB RATIO 0.8 (1.1-1.8); ALBUMIN 2.8 g/dL (3.0-4.8); ALT/SGPT 34 U/L (7-56); AST/SGOT 32 U/L (17-59); BLOOD UREA NITROGEN 15 mg/dL (7-21); CALCIUM 7.9 mg/dL (8.4-10.5); GFR NON-AFRICAN AMERICAN > 60
--- NOTE | 2018-09-09 08:02 | CP.PCM.PN ---
Subjective - Date & Time of Evaluation Date of Evaluation: 09/09/18 Time of Evaluation: 07:57 - Subjective Subjective: Lukasz Hayden, PGY1 Surgery Progress Note for Dr. Vizcarra Patient was seen and examined at bedside this morning. Patient is AAOx3. Denies chest pain, sob, nausea, vomiting, diarrhea. Does not endorse further episodes of melena. No adverse overnight events. Objective - Vital Signs/Intake and Output Vital Signs (last 24 hours): Temp Pulse Resp BP Pulse Ox 98.4 F 86 20 133/84 94 L 09/09/18 07:39 09/09/18 07:39 09/09/18 07:39 09/09/18 07:39 09/09/18 07:39 Intake and Output: 09/09/18 09/09/18 06:59 18:59 Output Total 600 Balance -600 - Medications Medications: Current Medications Albuterol/Ipratropium (Duoneb 3 Mg/0.5 Mg (3 Ml) Ud) 3 ml IH [id number] [facility] Last Admin: 09/09/18 02:09 Dose: Not Given Albuterol/Ipratropium (Duoneb 3 Mg/0.5 Mg (3 Ml) Ud) 3 ml IH Q2H PRN PRN Reason: Shortness of Breath Last Admin: 08/25/18 23:35 Dose: 3 ml Atorvastatin Calcium (Lipitor) 80 mg PO DIN [facility] Last Admin: 09/08/18 18:14 Dose: 80 mg Carvedilol (Coreg) 12.5 mg PO BID [facility] Last Admin: 09/08/18 18:14 Dose: 12.5 mg Furosemide (Lasix) 40 mg PO DAILY [facility] Last Admin: 09/08/18 12:34 Dose: 40 mg Glipizide (Glucotrol) 5 mg PO ACB [facility] Last Admin: 08/31/18 07:45 Dose: Not Given Insulin Human Lispro (Humalog High) 0 units SC Q6 [facility]; Protocol Last Admin: 09/09/18 01:00 Dose: Not Given Lidocaine (Lidoderm) 1 ea TD DAILY [facility] Last Admin: 09/08/18 18:16 Dose: 1 ea Losartan Potassium (Cozaar) 25 mg PO DAILY [facility] Last Admin: 09/08/18 12:33 Dose: 25 mg Pantoprazole Sodium (Protonix Inj) 40 mg IVP Q12 [facility] Last Admin: 09/08/18 21:17 Dose: 40 mg - Labs Labs: 09/09/18 06:00 09/09/18 06:00 PT 15.9 SECONDS (9.4-12.5) H 09/09/18 06:00 INR 1.37 09/09/18 06:00 APTT 29.6 Seconds (25.1-36.5) 09/03/18 08:30 - Constitutional Appears: No Acute Distress - Head Exam Head Exam: ATRAUMATIC, NORMAL INSPECTION, NORMOCEPHALIC - Eye Exam Eye Exam: Normal appearance - ENT Exam ENT Exam: Mucous Membranes Moist, Normal Exam - Respiratory Exam Respiratory Exam: Clear to Ausculation Bilateral. absent: Rales, Rhonchi, Wheezes - Cardiovascular Exam Cardiovascular Exam: RRR - GI/Abdominal Exam GI & Abdominal Exam: Soft. absent: Firm, Guarding, Rigid, Tenderness - Extremities Exam Extremities Exam: Full ROM, Normal Inspection. absent: Joint Swelling, Pedal Edema - Neurological Exam Neurological Exam: Alert, Awake, Oriented x3 - Skin Skin Exam: Dry, Intact, Normal Color, Warm Assessment and Plan - Assessment and Plan (Free Text) Assessment: 53 y/o M with Upper GI Bleed s/p endoscopy with clip placement of bleeding duodenal ulcer Plan: - No plans for surgical intervention at this time. - Hgb is currently stable at 8.2. No further episodes of overt bleed. - Planned for colonoscopy today - Surgery team will f/u colonoscopy results. If colonoscopy is negative and there is no necessary surgical intervention, please re-contact surgical team for any questions or concerns. Case was discussed and reviewed with Dr. Vizcarra.
[2018-09-09] MEDS: Lidocaine 5% Patch TD SCH (09:15)
--- NOTE | 2018-09-09 09:28 | RAD ---
Date of service: 09/09/2018 HISTORY: PNA COMPARISON: 09/07/2018 FINDINGS: LUNGS: No active pulmonary disease. PLEURA: No significant pleural effusion identified, no pneumothorax apparent. CARDIOVASCULAR: No aortic atherosclerotic calcification present. Mild to moderate cardiomegaly no pulmonary vascular congestion. OSSEOUS STRUCTURES: No significant abnormalities. VISUALIZED UPPER ABDOMEN: Normal. OTHER FINDINGS: None. IMPRESSION: No active disease.
[2018-09-09] MEDS ORDERED: Sodium Chloride 0.9% 1,000 ML IV SCH (12:00)
[2018-09-09] MEDS ORDERED: Propofol 10 mg/ml Inj (20 ML) ONE (12:32)
--- NOTE | 2018-09-09 15:03 | CP.PCM.PN ---
Subjective - Date & Time of Evaluation Date of Evaluation: 09/09/18 Time of Evaluation: 10:10 - Subjective Subjective: Not short of breath at rest, no fevers. For colonoscopy today. Objective - Vital Signs/Intake and Output Vital Signs (last 24 hours): Temp Pulse Resp BP Pulse Ox 99.4 F 89 21 116/73 99 09/08/18 00:00 09/08/18 05:57 09/08/18 05:00 09/08/18 00:00 09/08/18 03:00 Intake and Output: 09/08/18 09/08/18 06:59 18:59 Output Total 325 Balance -325 - Medications Medications: Current Medications Albuterol/Ipratropium (Duoneb 3 Mg/0.5 Mg (3 Ml) Ud) 3 ml IH [id number] [facility] Last Admin: 09/08/18 08:50 Dose: 3 ml Albuterol/Ipratropium (Duoneb 3 Mg/0.5 Mg (3 Ml) Ud) 3 ml IH Q2H PRN PRN Reason: Shortness of Breath Last Admin: 08/25/18 23:35 Dose: 3 ml Atorvastatin Calcium (Lipitor) 80 mg PO DIN [facility] Last Admin: 09/07/18 18:03 Dose: 80 mg Bisacodyl (Dulcolax) 10 mg PO ONCE ONE Stop: 09/08/18 16:01 Carvedilol (Coreg) 12.5 mg PO BID [facility] Last Admin: 09/07/18 18:03 Dose: 12.5 mg Furosemide (Lasix) 40 mg PO DAILY [facility] Last Admin: 09/07/18 10:17 Dose: 40 mg Glipizide (Glucotrol) 5 mg PO ACB [facility] Last Admin: 08/31/18 07:45 Dose: Not Given Insulin Human Lispro (Humalog High) 0 units SC Q6 [facility]; Protocol Last Admin: 09/08/18 00:00 Dose: Not Given Losartan Potassium (Cozaar) 25 mg PO DAILY [facility] Last Admin: 08/30/18 11:14 Dose: 25 mg Pantoprazole Sodium (Protonix Inj) 40 mg IVP Q12 [facility] Last Admin: 09/07/18 22:47 Dose: 40 mg Polyethylene Glycol/Electrolytes (Golytely) 4,000 ml PO ONCE ONE Stop: 09/08/18 16:01 - Labs Labs: 09/08/18 06:30 09/08/18 06:30 PT 15.2 SECONDS (9.4-12.5) H 09/08/18 06:30 INR 1.31 09/08/18 06:30 APTT 29.6 Seconds (25.1-36.5) 09/03/18 08:30 - Constitutional Appears: Chronically Ill - Head Exam Head Exam: NORMAL INSPECTION - Respiratory Exam Respiratory Exam: Decreased Breath Sounds - Cardiovascular Exam Cardiovascular Exam: +S1, +S2 - GI/Abdominal Exam GI & Abdominal Exam: Soft. absent: Tenderness Assessment and Plan - Assessment and Plan (Free Text) Plan: Assessment SIRS due to acute on chronic systolic heart failure, R/O left sided HCAP, clinically improved chronic anemia with drop in hemoglobin, due to GI bleeding positive HIV PCR and positive 4th generation antibody test, acute versus chronic HIV infection S/P sepsis due to right lower lobe HCAP, S/P treatment with antibiotics obesity with BMI 35 COPD Plan T-cell count is above 200 - patient will need to be arranged to see an HIV specialist on discharge for further management of HIV and to be started on ART as an outpatient ICU managing anemia and respiratory distress - continue to monitor off antibiotics since he is at risk for nosocomial infections patient had EGD which showed duodenal ulcer and will get colonoscopy today as per GI overall prognosis is poor
--- NOTE | 2018-09-09 19:31 | PN ---
DATE: 09/09/2018 SUBJECTIVE: The patient was seen in the recovery room. A colonoscopy was attempted, but was not performed because the patient was not well prepared. There is no reported arrhythmia or hypertension. PHYSICAL EXAMINATION: VITAL SIGNS: Blood pressure 120/78, heart rate 81, temperature 98.3, and respirations 16. HEENT: Pale conjunctivae. CHEST: Clear. HEART: S1 and S2 regular. EXTREMITIES: Trace leg edema. LABORATORY DATA: Hemoglobin and hematocrit are 8.2 and 26, white count and platelet count are within normal limits. Today's SMA-7 is within normal limit except for anion gap of 9 and creatinine of 0.7. ASSESSMENT: 1. Biventricular failure. 2. Upper gastrointestinal bleeding. 3. Human immunodeficiency virus positive. 4. Anemia. RECOMMENDATIONS: Continue Coreg 12.5 mg once a day, Cozaar 25 mg once a day, glipizide 5 mg once a day, Lasix 40 mg p.o. daily, and Lipitor 80 mg once a day. Beny Salgado MD
[2018-09-09] MEDS ORDERED: Morphine 2 mg/ml ISec IVP STA (22:58)
[2018-09-10] MEDS: Insulin Lispro (HUMAlog) HIGH Coverage SC SCH ×4 (00:10→18:09)
[2018-09-10] MEDS: Albuterol-Ipratrop 3 mg / 0.5 (3 ml) UD IH SCH (02:01)
--- NOTE | 2018-09-10 07:06 | CP.PCM.PN ---
<Elaina Baca L - Last Filed: 09/10/18 15:39> Subjective - Date & Time of Evaluation Date of Evaluation: 09/10/18 Time of Evaluation: 07:06 - Subjective Subjective: Resident Progress Note for Hospitalist Service Patient examined at bedside. No acute events overnight. Plan for colonoscopy on Wednesday. Denies fevers, chills, headache, dizziness, abdominal pain, diarrhea, hematochezia. Objective - Vital Signs/Intake and Output Vital Signs (last 24 hours): Temp Pulse Resp BP Pulse Ox 98.3 F 87 20 149/92 H 100 09/10/18 06:00 09/10/18 06:00 09/10/18 06:00 09/10/18 06:00 09/10/18 06:00 Intake and Output: 09/10/18 09/10/18 06:59 18:59 Intake Total 960 Output Total 1250 Balance -290 - Medications Medications: Current Medications Carvedilol (Coreg) 12.5 mg PO BID [facility] Last Admin: 09/09/18 17:30 Dose: 12.5 mg Furosemide (Lasix) 40 mg PO DAILY [facility] Last Admin: 09/09/18 09:15 Dose: 40 mg Glipizide (Glucotrol) 5 mg PO ACB [facility] Last Admin: 08/31/18 07:45 Dose: Not Given Insulin Human Lispro (Humalog High) 0 units SC Q6 [facility]; Protocol Last Admin: 09/10/18 06:49 Dose: Not Given Lidocaine (Lidoderm) 1 ea TD DAILY [facility] Last Admin: 09/09/18 09:15 Dose: 1 ea Losartan Potassium (Cozaar) 25 mg PO DAILY [facility] Last Admin: 09/09/18 09:14 Dose: 25 mg Pantoprazole Sodium (Protonix Inj) 40 mg IVP Q12 [facility] Last Admin: 09/09/18 21:19 Dose: 40 mg - Labs Labs: 09/09/18 06:00 09/09/18 06:00 PT 15.9 SECONDS (9.4-12.5) H 09/09/18 06:00 INR 1.37 09/09/18 06:00 APTT 29.6 Seconds (25.1-36.5) 09/03/18 08:30 - Head Exam Head Exam: ATRAUMATIC, NORMOCEPHALIC - Eye Exam Eye Exam: EOMI, Normal appearance - ENT Exam ENT Exam: Mucous Membranes Moist - Respiratory Exam Respiratory Exam: Clear to Ausculation Bilateral, NORMAL BREATHING PATTERN. absent: Rales, Rhonchi, Wheezes - Cardiovascular Exam Cardiovascular Exam: REGULAR RHYTHM, +S1, +S2 - GI/Abdominal Exam GI & Abdominal Exam: Soft, Normal Bowel Sounds. absent: Distended, Firm, Guarding, Tenderness - Extremities Exam Extremities Exam: Normal Capillary Refill, Normal Inspection. absent: Pedal Edema - Neurological Exam Neurological Exam: Alert, Awake, CN II-XII Intact, Oriented x3 - Psychiatric Exam Psychiatric exam: Normal Affect, Normal Mood - Skin Skin Exam: Normal Color Assessment and Plan - Assessment and Plan (Free Text) Assessment: 53 year old male with past medical history of HIV not on HAART, COPD, diabetes mellitus type II, HTN, HLD, systolic CHF with EF of 39%, CAD with stent, lumbar radiculopathy, gout, and HIV presented with shortness of breath and admitted for management of UGIB. Plan: Anemia 2/2 UGIB - s/p 14 units of pRBCs, 2 FFPs, 1 Plts - Abdominal U/S showed patent portal vein, trace ascites. Limited study. - Bleeding scan 09/02 showed GI hemorrhage in likely in stomach with migration through duodenum and prox small bowel. - ICU consult placed - Dr. Alesha augustin appreciated - GI consult - Dr. Suzie augustin appreciated. - Initial EGD showed esophageal, duodenal and gastric ulcers, with coffee-ground emesis vs blood found in antrum. Moderate portal HTN gastropathy. - Repeat EGD 09/02 showed clotted blood in gastric fundus and body as well as oozing hemorrhagic duodenal ulcer where a hemostatic clip was placed - Gen Surg consulted - no indication for surgical intervention at this time - Abd/pelvis CT shows minimal ascites, unremarkable gallbladder, no overt hepatic cirrhotic pattern - plan for colonoscopy [facility] as per GI - Hgb stable Shortness of breath - CXR consistent with cardiomegaly - ECHO shows mild systolic congestive heart failure with EF of 39% from 04/2018 - Coreg 12.5 mg PO BID - Cardio consult- Dr. Naomi augustin appreciated - Lasix 40 PO daily - Cefepime and Doxycycline for 4-7 days per ID for HCAP - 08/31 BCx neg x2 CAD with stent - EKG: Atrial fibrillation, RBBB - Troponinx3 elevated likely due to CORAZON - Cardiac catheterization in 12/2017 showed LAD lesion 80% - Continue with aspirin, antiHTN meds held - TSH: 2.41, LDL: 75 T2DM - Accuchecks - HgbA1c: 6.9 - Lispro high, Glipizide held CHAR[facility] - Continue with CPAP/Bipap Hypertension - Coreg 12.5 mg PO BID - Losartan 25 mg PO daily Hyperlipidemia - Lipid panel unremarkable - Continue with lipitor 80 mg PO DIN HIV - HIV antibody reactive with 3.33 on PCR - CD4 count 361 - MRSA nose negative GI prophylaxis: Protonix 40 mg IV Q12 DVT prophylaxis contraindicated due to UGIB Case discussed with Dr. Esther Baca PGY-1 <Kavon Santana - Last Filed: 09/10/18 18:27> Objective - Vital Signs/Intake and Output Vital Signs (last 24 hours): Temp Pulse Resp BP Pulse Ox 97.8 F 85 20 127/79 97 09/10/18 17:00 09/10/18 17:29 09/10/18 17:00 09/10/18 17:29 09/10/18 17:00 Intake and Output: 09/10/18 09/10/18 06:59 18:59 Intake Total 960 1740 Output Total 1250 1900 Balance -290 -160 - Medications Medications: Current Medications Carvedilol (Coreg) 12.5 mg PO BID [facility] Last Admin: 09/10/18 17:29 Dose: 12.5 mg Furosemide (Lasix) 40 mg PO DAILY [facility] Last Admin: 09/10/18 09:53 Dose: 40 mg Glipizide (Glucotrol) 5 mg PO ACB [facility] Last Admin: 08/31/18 07:45 Dose: Not Given Insulin Human Lispro (Humalog High) 0 units SC Q6 [facility]; Protocol Last Admin: 09/10/18 18:09 Dose: Not Given Lidocaine (Lidoderm) 1 ea TD DAILY [facility] Last Admin: 09/10/18 09:54 Dose: 1 ea Losartan Potassium (Cozaar) 25 mg PO DAILY [facility] Last Admin: 09/10/18 09:52 Dose: 25 mg Pantoprazole Sodium (Protonix Inj) 40 mg IVP Q12 [facility] Last Admin: 09/10/18 09:54 Dose: 40 mg Tramadol HCl (Ultram) 50 mg PO TID PRN PRN Reason: Pain, severe (8-10) Last Admin: 09/10/18 13:47 Dose: 50 mg - Labs Labs: 09/10/18 08:20 09/10/18 08:20 PT 15.9 SECONDS (9.4-12.5) H 09/09/18 06:00 INR 1.37 09/09/18 06:00 APTT 29.6 Seconds (25.1-36.5) 09/03/18 08:30 Attending/Attestation - Attestation I have personally seen and examined this patient.: Yes I have fully participated in the care of the patient.: Yes I have reviewed all pertinent clinical information, including history, physical exam and plan: Yes Notes (Text): 09/10/18 18:21 53 year old male with past medical history of HIV not on HAART, COPD, CAD, CHF, and diabetes who initially presented with shortness of breath, treated for CHF exacerbation. Hospital course was complicated with acute blood loss anemia requiring multiple PRBC transfusions. EGD showed esophageal, duodenal and gastric ulcers with moderate portal hypertensive gastropathy. Repeat EGD showed clotted blood in gastric fundus and body with oozing hemorrhagic duodenal ulcer with hemostatic clip placement. Colonoscopy was attempted yesterday but poorly prepped. GI is following and plan is for colonoscopy on Wednesday. Patient is s/p antibiotics for HCAP. He is on coreg, cozaar and lasix. ID is following for HIV. Patient will need close outpatient follow up. PT has been recommended STEPHANIE. PT follow up requested for d/c recommendations. Kavon Santana MD Hospitalist.
[2018-09-10 08:43] LABS: BASO # 0.03 K/mm3 (0.0-2.0); BASO % 0.4 % (0.0-3.0); EOS # 0.1 (0.0-0.7); GRAN # 4.01 (1.4-6.5); GRAN % 58.7 % (50.0-68.0); HEMOGLOBIN 8.2 g/dL (14.0-18.0); LYMPH % 29.4 % (22.0-35.0); MEAN CELL VOLUME 87.3 fl (80.0-105.0); MEAN CORPUSCULAR HEMOGLOBIN 28.1 pg (25.0-35.0); MEAN CORPUSCULAR HGB CONC 32.2 g/dl (31.0-37.0); MEAN PLATELET VOLUME 10.3 fl (7.0-11.0); MONO # 0.7 (0.1-0.6); MONO % 9.5 % (1.0-6.0); RBC 2.92 10^6/uL (3.5-6.1); RED CELL DISTRIBUTION WIDTH 17.4 % (11.5-14.5); WHITE BLOOD COUNT 6.8 10^3/uL (4.5-11.0)
[2018-09-10 09:22] LABS: ALB/GLOB RATIO 0.8 (1.1-1.8); ALBUMIN 2.9 g/dL (3.0-4.8); ALT/SGPT 36 U/L (7-56); AST/SGOT 34 U/L (17-59); BLOOD UREA NITROGEN 22 mg/dL (7-21); CALCIUM 8.1 mg/dL (8.4-10.5); GFR NON-AFRICAN AMERICAN > 60
[2018-09-10] MEDS: Lidocaine 5% Patch TD SCH (09:54)
--- NOTE | 2018-09-10 13:21 | PN ---
DATE: 09/10/2018 SUBJECTIVE: The patient was seen earlier this morning in room 369, bed 2. She is awake and alert, had uneventful night. No fevers. He did have a fever yesterday, low-grade fevers. No chest pain or shortness of breath. PHYSICAL EXAMINATION: VITAL SIGNS: Temperature is 98, T-max yesterday was 100.3, respiratory rate of 20, heart rate of 87 and blood pressure is 148/90. HEENT: Unremarkable. NECK: Supple. LUNGS: Decreased breath sounds. HEART: Normal S1 and S2. ABDOMEN: Soft and nontender. LABORATORY DATA: Reveals a white count of 6.8, hemoglobin of 8 and platelets of 163. Chemistry reveals a BUN of 22, creatinine of 0.8 and procalcitonin is 0.24. Urinalysis is noted. HIV is positive. Fourth generation test is positive. Microbiology reveals all blood cultures are negative. ASSESSMENT AND PLAN: This is a 53-year-old male who is seen with past medical history of obesity, hypertension, diabetes, sleep apnea, congestive heart failure, hyperlipidemia, chronic obstructive lung disease and hip surgery. He was admitted with diagnoses of a acute systolic congestive heart failure, positive human immunodeficiency virus and T-cells of 36%, an absolute CD-4 count of 361. The patient had a CD-4 count on April which was 727 and the patient also had a CD-4 percentage of 51% in 04/2018. The patient had a positive human immunodeficiency virus which was done in 04/2018. Review of the April chart, reveals the patient was seen April. The patient was seen by Dr. Groves on 05/24/2018. Patient's PCR was undectable in April. The patient needs to followup with sepsis due to [id number] systolic congestive heart failure; left-sided healthcare-associated pneumonia, improved; chronic anemia; positive human immunodeficiency virus and chronic obstructive pulmonary disease. The patient needs to be started on human immunodeficiency virus medications and should followup as an outpatient with human immunodeficiency virus drapery supervisor. We will follow with you. Should have a genotype. Harris Todd MD
--- NOTE | 2018-09-10 13:53 | CP.PCM.PN ---
<Trav Mosley - Last Filed: 09/10/18 13:49> Subjective - Date & Time of Evaluation Date of Evaluation: 09/10/18 Time of Evaluation: 11:35 - Subjective Subjective: PGY-4 GI Fellow Prog Note Pt sitting up in bed when seen this AM. States he is doing well, w/o complaints. Denied abd pain, melena nor hematochezia. 5 point ROS negative other than stated above. Objective - Vital Signs/Intake and Output Vital Signs (last 24 hours): Temp Pulse Resp BP Pulse Ox 98.3 F 92 H 20 148/92 H 100 09/10/18 06:00 09/10/18 10:00 09/10/18 06:00 09/10/18 09:54 09/10/18 06:00 Intake and Output: 09/10/18 09/10/18 06:59 18:59 Intake Total 960 Output Total 1250 Balance -290 - Medications Medications: Current Medications Bisacodyl (Dulcolax) 10 mg PO ONCE ONE Stop: 09/10/18 15:01 Carvedilol (Coreg) 12.5 mg PO BID [facility] Last Admin: 09/10/18 09:54 Dose: 12.5 mg Furosemide (Lasix) 40 mg PO DAILY [facility] Last Admin: 09/10/18 09:53 Dose: 40 mg Glipizide (Glucotrol) 5 mg PO ACB [facility] Last Admin: 08/31/18 07:45 Dose: Not Given Insulin Human Lispro (Humalog High) 0 units SC Q6 [facility]; Protocol Last Admin: 09/10/18 12:39 Dose: Not Given Lidocaine (Lidoderm) 1 ea TD DAILY [facility] Last Admin: 09/10/18 09:54 Dose: 1 ea Losartan Potassium (Cozaar) 25 mg PO DAILY [facility] Last Admin: 09/10/18 09:52 Dose: 25 mg Pantoprazole Sodium (Protonix Inj) 40 mg IVP Q12 [facility] Last Admin: 09/10/18 09:54 Dose: 40 mg Polyethylene Glycol/Electrolytes (Golytely) 2,000 ml PO ONCE ONE Stop: 09/10/18 16:01 Tramadol HCl (Ultram) 50 mg PO TID PRN PRN Reason: Pain, severe (8-10) - Labs Labs: 09/10/18 08:20 09/10/18 08:20 PT 15.9 SECONDS (9.4-12.5) H 09/09/18 06:00 INR 1.37 09/09/18 06:00 APTT 29.6 Seconds (25.1-36.5) 09/03/18 08:30 - Constitutional Appears: No Acute Distress, Chronically Ill - Head Exam Head Exam: ATRAUMATIC, NORMAL INSPECTION - Eye Exam Eye Exam: EOMI. absent: Scleral icterus - ENT Exam ENT Exam: Mucous Membranes Moist. absent: Mucous Membranes Dry - Respiratory Exam Respiratory Exam: NORMAL BREATHING PATTERN. absent: Accessory Muscle Use, Respiratory Distress - GI/Abdominal Exam GI & Abdominal Exam: Distended (mildly though obese limiting exam), Soft, Normal Bowel Sounds. absent: Bruit, Firm, Guarding, Rigid, Tenderness, Mass, Organomegaly Assessment and Plan - Assessment and Plan (Free Text) Assessment: 53yo male with PMHx significant for HIV not on HAART, COPD, systolic CHF with biventricular failure, CAD s/p PCI, DM, HTN, hyperlipidemia who presented to the hospital 5 days ago with shortness of breath -Acute blood loss anemia 2/2 severe PUD -Biventricular heart failure -COPD with acute exacerbation -CAD -HIV Plan: - 2 L Golytely prep 09/10, 4 L on 09/11 - Bisacodyl 10 mg 09/10 and 09/11 - Clear Liquid diet starting dinner on 09/10 - Transfusion support as necessary - NPO at [facility] on 09/11 for CSPY on 09/12 - Continue to monitor clinical course Pt discussed with Dr. Larsen; please see attestation for further recs/changes Trav Mosley, PGY-4 <Cyril Larsen V - Last Filed: 09/11/18 18:35> Objective - Vital Signs/Intake and Output Vital Signs (last 24 hours): Temp Pulse Resp BP Pulse Ox 97.8 F 86 20 127/79 97 09/10/18 17:00 09/10/18 18:00 09/10/18 17:00 09/10/18 17:29 09/10/18 17:00 Intake and Output: 09/10/18 09/11/18 18:59 06:59 Intake Total 1740 Output Total 1900 Balance -160 - Medications Medications: Current Medications Carvedilol (Coreg) 12.5 mg PO BID [facility] Last Admin: 09/10/18 17:29 Dose: 12.5 mg Furosemide (Lasix) 40 mg PO DAILY [facility] Last Admin: 09/10/18 09:53 Dose: 40 mg Glipizide (Glucotrol) 5 mg PO ACB [facility] Last Admin: 08/31/18 07:45 Dose: Not Given Insulin Human Lispro (Humalog High) 0 units SC Q6 [facility]; Protocol Last Admin: 09/10/18 18:09 Dose: Not Given Lidocaine (Lidoderm) 1 ea TD DAILY [facility] Last Admin: 09/10/18 09:54 Dose: 1 ea Losartan Potassium (Cozaar) 25 mg PO DAILY [facility] Last Admin: 09/10/18 09:52 Dose: 25 mg Pantoprazole Sodium (Protonix Inj) 40 mg IVP Q12 [facility] Last Admin: 09/10/18 21:40 Dose: 40 mg Tramadol HCl (Ultram) 50 mg PO TID PRN PRN Reason: Pain, severe (8-10) Last Admin: 09/10/18 13:47 Dose: 50 mg - Labs Labs: 09/10/18 08:20 09/10/18 08:20 PT 15.9 SECONDS (9.4-12.5) H 09/09/18 06:00 INR 1.37 09/09/18 06:00 APTT 29.6 Seconds (25.1-36.5) 09/03/18 08:30 Attending/Attestation - Attestation I have personally seen and examined this patient.: Yes I have fully participated in the care of the patient.: Yes I have reviewed all pertinent clinical information, including history, physical exam and plan: Yes Notes (Text): This is an addendum to GI followup report dictated by the GI Fellow. The patient was seen and evaluated earlier. Medical records, lab studies, imagings were reviewed. Last 24 hours events reviewed. Agreed with the above treatment plan as outlined in GI Fellow's notes with the addition of the following Patient is on extended bowel prep. Hemoglobin stable. Patient was strictly instructed to avoid outside food. 09/10/18 23:06 09/11/18 18:33
[2018-09-10] MEDS ORDERED: Bisacodyl 5mg EC Tab PO ONE (15:00)
[2018-09-10] MEDS ORDERED: Peg-Electrolyte Oral Soln 4L (Golytely) PO ONE (16:00)
--- NOTE | 2018-09-10 16:43 | PN ---
DATE: 09/10/2018 SUBJECTIVE: The patient denies any chest pain or shortness of breath. PHYSICAL EXAMINATION VITAL SIGNS: Blood pressure 148/92, heart rate 87, temperature 98.3, and respirations 20. HEENT: Normocephalic. CHEST: Clear. HEART: S1 and S2 regular. EXTREMITIES: Trace leg edema. LABORATORY DATA: Hemoglobin and hematocrit are 8.2 and 25.2. White count and platelet count are within normal limits. Today's SMA-7 is within normal limit except for glucose of 114 and BUN of 22. ASSESSMENT: 1. Biventricular failure. 2. Anemia and upper gastrointestinal bleeding. 3. Human immunodeficiency virus positive. 4. Liver cirrhosis. RECOMMENDATIONS: Continue Coreg, Cozaar, glipizide, oral Lasix, and IV Protonix. Patient will undergo colonoscopy on Wednesday. Beny Salgado MD
[2018-09-11] MEDS: Insulin Lispro (HUMAlog) HIGH Coverage SC SCH ×4 (00:46→18:48)
[2018-09-11] MEDS ORDERED: Calamine-Zinc Oxide Lotion (120 ml) TOP PRN (09:19)
[2018-09-11] MEDS: Lidocaine 5% Patch TD SCH (09:35)
--- NOTE | 2018-09-11 10:48 | CP.PCM.PN ---
<Elaina Baca L - Last Filed: 09/11/18 14:56> Subjective - Date & Time of Evaluation Date of Evaluation: 09/11/18 Time of Evaluation: 10:48 - Subjective Subjective: Resident Progress Note for Hospitalist Service Patient examined at bedside. No acute events overnight. States he has started his bowel prep for colonscopy tomorrow. Denies fevers, chills, chest pain, shortness of breath, abdominal pain, diarrhea, melena, hematochezia. Objective - Vital Signs/Intake and Output Vital Signs (last 24 hours): Temp Pulse Resp BP Pulse Ox 98.2 F 88 20 162/84 H 100 09/11/18 06:00 09/11/18 09:36 09/11/18 06:00 09/11/18 09:36 09/11/18 06:00 Intake and Output: 09/11/18 09/11/18 06:59 18:59 Intake Total 340 Output Total 600 Balance -260 - Medications Medications: Current Medications Bisacodyl (Dulcolax) 10 mg PO ONCE ONE Stop: 09/11/18 15:01 Calamine (Calamine Lotion) 1 ml TOP BID PRN PRN Reason: Dry skin Carvedilol (Coreg) 12.5 mg PO BID [facility] Last Admin: 09/11/18 09:36 Dose: 12.5 mg Furosemide (Lasix) 40 mg PO DAILY [facility] Last Admin: 09/11/18 09:36 Dose: 40 mg Glipizide (Glucotrol) 5 mg PO ACB [facility] Last Admin: 08/31/18 07:45 Dose: Not Given Insulin Human Lispro (Humalog High) 0 units SC Q6 [facility]; Protocol Last Admin: 09/11/18 06:07 Dose: Not Given Lidocaine (Lidoderm) 1 ea TD DAILY [facility] Last Admin: 09/11/18 09:35 Dose: 1 ea Losartan Potassium (Cozaar) 25 mg PO DAILY [facility] Last Admin: 09/11/18 09:35 Dose: 25 mg Pantoprazole Sodium (Protonix Inj) 40 mg IVP Q12 [facility] Last Admin: 09/11/18 09:35 Dose: 40 mg Polyethylene Glycol/Electrolytes (Golytely) 4,000 ml PO ONCE ONE Stop: 09/11/18 16:01 Tramadol HCl (Ultram) 50 mg PO TID PRN PRN Reason: Pain, severe (8-10) Last Admin: 09/10/18 23:59 Dose: 50 mg - Labs Labs: 09/10/18 08:20 09/10/18 08:20 PT 15.9 SECONDS (9.4-12.5) H 09/09/18 06:00 INR 1.37 09/09/18 06:00 APTT 29.6 Seconds (25.1-36.5) 09/03/18 08:30 - Additional Findings Additional findings: - Head Exam Head Exam: ATRAUMATIC, NORMOCEPHALIC - Eye Exam Eye Exam: EOMI, Normal appearance - ENT Exam ENT Exam: Mucous Membranes Moist - Respiratory Exam Respiratory Exam: Clear to Ausculation Bilateral, NORMAL BREATHING PATTERN. absent: Rales, Rhonchi, Wheezes - Cardiovascular Exam Cardiovascular Exam: REGULAR RHYTHM, +S1, +S2 - GI/Abdominal Exam GI & Abdominal Exam: Soft, Normal Bowel Sounds. absent: Distended, Firm, Guarding, Tenderness - Extremities Exam Extremities Exam: Normal Capillary Refill, Normal Inspection. absent: Pedal Edema - Neurological Exam Neurological Exam: Alert, Awake, CN II-XII Intact, Oriented x3 - Psychiatric Exam Psychiatric exam: Normal Affect, Normal Mood - Skin Skin Exam: Normal Color Assessment and Plan - Assessment and Plan (Free Text) Assessment: 53 year old male with past medical history of HIV not on HAART, COPD, diabetes mellitus type II, HTN, HLD, systolic CHF with EF of 39%, CAD with stent, lumbar radiculopathy, gout, and HIV presented with shortness of breath and admitted for management of UGIB. Plan: Anemia 2/2 UGIB - s/p 14 units of pRBCs, 2 FFPs, 1 Plts - Abdominal U/S showed patent portal vein, trace ascites. Limited study. - Bleeding scan 09/02 showed GI hemorrhage in likely in stomach with migration through duodenum and prox small bowel. - ICU consult placed - Dr. Eduardo - demetria appreciated - GI consult - Dr. Larsen - demetria appreciated. - Initial EGD showed esophageal, duodenal and gastric ulcers, with coffee-ground emesis vs blood found in antrum. Moderate portal HTN gastropathy. - Repeat EGD 09/02 showed clotted blood in gastric fundus and body as well as oozing hemorrhagic duodenal ulcer where a hemostatic clip was placed - Gen Surg consulted - no indication for surgical intervention at this time - Abd/pelvis CT shows minimal ascites, unremarkable gallbladder, no overt hepatic cirrhotic pattern - first attempt at colonoscopy aborted due to incomplete prep - plan for colonoscopy Wednesday as per GI - Hgb stable Shortness of breath - CXR consistent with cardiomegaly - ECHO shows mild systolic congestive heart failure with EF of 39% from 04/2018 - Coreg 12.5 mg PO BID - Cardio consult- Dr. Salgado - recs appreciated - Lasix 40 PO daily - Cefepime and Doxycycline for 4-7 days per ID for HCAP - 08/31 BCx neg x2 CAD with stent - EKG: Atrial fibrillation, RBBB - Troponinx3 elevated likely due to CORAZON - Cardiac catheterization in 12/2017 showed LAD lesion 80% - Continue with aspirin, antiHTN meds held - TSH: 2.41, LDL: 75 T2DM - Accuchecks - HgbA1c: 6.9 - Lispro high, Glipizide held CHARAN - Continue with CPAP/Bipap Hypertension - Coreg 12.5 mg PO BID - Losartan 25 mg PO daily Hyperlipidemia - Lipid panel unremarkable - Continue with lipitor 80 mg PO DIN HIV - HIV antibody reactive with 3.33 on PCR - CD4 count 361 - MRSA nose negative GI prophylaxis: Protonix 40 mg IV Q12 DVT prophylaxis contraindicated due to UGIB Case discussed with Dr. Esther Baca PGY-1 <Kavon Santana - Last Filed: 09/11/18 15:29> Objective - Vital Signs/Intake and Output Vital Signs (last 24 hours): Temp Pulse Resp BP Pulse Ox 98.2 F 96 H 20 162/84 H 100 09/11/18 06:00 09/11/18 10:00 09/11/18 06:00 09/11/18 09:36 09/11/18 06:00 Intake and Output: 09/11/18 09/11/18 06:59 18:59 Intake Total 340 Output Total 600 Balance -260 - Medications Medications: Current Medications Calamine (Calamine Lotion) 1 ml TOP BID PRN PRN Reason: Dry skin Carvedilol (Coreg) 12.5 mg PO BID [facility] Last Admin: 09/11/18 09:36 Dose: 12.5 mg Furosemide (Lasix) 40 mg PO DAILY [facility] Last Admin: 09/11/18 09:36 Dose: 40 mg Glipizide (Glucotrol) 5 mg PO ACB [facility] Last Admin: 08/31/18 07:45 Dose: Not Given Insulin Human Lispro (Humalog High) 0 units SC Q6 [facility]; Protocol Last Admin: 09/11/18 12:48 Dose: 4 u Lidocaine (Lidoderm) 1 ea TD DAILY [facility] Last Admin: 09/11/18 09:35 Dose: 1 ea Losartan Potassium (Cozaar) 25 mg PO DAILY [facility] Last Admin: 09/11/18 09:35 Dose: 25 mg Pantoprazole Sodium (Protonix Inj) 40 mg IVP Q12 [facility] Last Admin: 09/11/18 09:35 Dose: 40 mg Polyethylene Glycol/Electrolytes (Golytely) 4,000 ml PO ONCE ONE Stop: 09/11/18 16:01 Tramadol HCl (Ultram) 50 mg PO TID PRN PRN Reason: Pain, severe (8-10) Last Admin: 09/10/18 23:59 Dose: 50 mg - Labs Labs: 09/10/18 08:20 09/10/18 08:20 PT 15.9 SECONDS (9.4-12.5) H 09/09/18 06:00 INR 1.37 09/09/18 06:00 APTT 29.6 Seconds (25.1-36.5) 09/03/18 08:30 Attending/Attestation - Attestation I have personally seen and examined this patient.: Yes I have fully participated in the care of the patient.: Yes I have reviewed all pertinent clinical information, including history, physical exam and plan: Yes Notes (Text): 09/11/18 15:25 53 year old male with past medical history of HIV not on HAART, COPD, CAD, CHF, and diabetes who initially presented with shortness of breath, treated for CHF exacerbation. Hospital course was complicated with acute blood loss anemia requiring multiple PRBC transfusions. EGD showed esophageal, duodenal and gastric ulcers with moderate portal hypertensive gastropathy. Repeat EGD showed clotted blood in gastric fundus and body with oozing hemorrhagic duodenal ulcer with hemostatic clip placement. Colonoscopy was attempted on Wednesday but poorly prepped. Plan is for colonoscopy tomorrow. Patient is s/p antibiotics for HCAP. He is on coreg, cozaar and lasix. ID is following for HIV. Patient will need close outpatient follow up. PT had initially been recommending [facility]. PT follow up requested for d/c recommendations. Kavon Santana MD Hospitalist.
[2018-09-11] MEDS ORDERED: Bisacodyl 5mg EC Tab PO ONE ×2 (12:28→15:00)
--- NOTE | 2018-09-11 14:06 | CP.PCM.PN ---
<Trav Mosley - Last Filed: 09/11/18 14:02> Subjective - Date & Time of Evaluation Date of Evaluation: 09/11/18 Time of Evaluation: 11:00 - Subjective Subjective: PGY-4 GI Fellow Prog Note Pt sitting up in bed with nursing at bedside when seen this AM. Did not drink all 2 L of prep last night, plans to finish this AM and proceed to 4 L prep tonight, but he states he is concerned that he can't drink it all. Stool still mostly formed brown this AM. Denied any abd pain nor signs of bleeding. 5 point ROS negative other than stated above Objective - Vital Signs/Intake and Output Vital Signs (last 24 hours): Temp Pulse Resp BP Pulse Ox 98.2 F 96 H 20 162/84 H 100 09/11/18 06:00 09/11/18 10:00 09/11/18 06:00 09/11/18 09:36 09/11/18 06:00 Intake and Output: 09/11/18 09/11/18 06:59 18:59 Intake Total 340 Output Total 600 Balance -260 - Medications Medications: Current Medications Bisacodyl (Dulcolax) 10 mg PO ONCE ONE Stop: 09/11/18 15:01 Calamine (Calamine Lotion) 1 ml TOP BID PRN PRN Reason: Dry skin Carvedilol (Coreg) 12.5 mg PO BID [facility] Last Admin: 09/11/18 09:36 Dose: 12.5 mg Furosemide (Lasix) 40 mg PO DAILY [facility] Last Admin: 09/11/18 09:36 Dose: 40 mg Glipizide (Glucotrol) 5 mg PO ACB [facility] Last Admin: 08/31/18 07:45 Dose: Not Given Insulin Human Lispro (Humalog High) 0 units SC Q6 [facility]; Protocol Last Admin: 09/11/18 12:48 Dose: 4 u Lidocaine (Lidoderm) 1 ea TD DAILY [facility] Last Admin: 09/11/18 09:35 Dose: 1 ea Losartan Potassium (Cozaar) 25 mg PO DAILY [facility] Last Admin: 09/11/18 09:35 Dose: 25 mg Pantoprazole Sodium (Protonix Inj) 40 mg IVP Q12 [facility] Last Admin: 09/11/18 09:35 Dose: 40 mg Polyethylene Glycol/Electrolytes (Golytely) 4,000 ml PO ONCE ONE Stop: 09/11/18 16:01 Tramadol HCl (Ultram) 50 mg PO TID PRN PRN Reason: Pain, severe (8-10) Last Admin: 09/10/18 23:59 Dose: 50 mg - Labs Labs: 09/10/18 08:20 09/10/18 08:20 PT 15.9 SECONDS (9.4-12.5) H 09/09/18 06:00 INR 1.37 09/09/18 06:00 APTT 29.6 Seconds (25.1-36.5) 09/03/18 08:30 - Constitutional Appears: Well, No Acute Distress, Chronically Ill - Head Exam Head Exam: ATRAUMATIC, NORMAL INSPECTION - Eye Exam Eye Exam: EOMI. absent: Scleral icterus - ENT Exam ENT Exam: Mucous Membranes Moist. absent: Mucous Membranes Dry - Respiratory Exam Respiratory Exam: absent: Accessory Muscle Use, Respiratory Distress - GI/Abdominal Exam GI & Abdominal Exam: Distended (mildly though obese), Soft, Normal Bowel Sounds. absent: Bruit, Firm, Guarding, Rigid, Tenderness, Mass, Organomegaly, Pulsatile Mass, Rebound Assessment and Plan - Assessment and Plan (Free Text) Assessment: 53yo male with PMHx significant for HIV not on HAART, COPD, systolic CHF with biventricular failure, CAD s/p PCI, DM, HTN, hyperlipidemia who presented to the hospital 5 days ago with shortness of breath -Acute blood loss anemia 2/2 severe PUD -Biventricular heart failure -COPD with acute exacerbation -CAD -HIV Plan: - Golytely 4 L on 09/11 - Bisacodyl 10 mg in AM and PM of 09/11 - Clear Liquid diet - Transfusion support as necessary - NPO at [facility] on 09/11 for CSPY on 09/12 - Continue to monitor clinical course Pt discussed with Dr. Larsen; please see attestation for further recs/changes Trav Mosley, PGY-4 <Cyril Larsen V - Last Filed: 09/11/18 18:33> Objective - Vital Signs/Intake and Output Vital Signs (last 24 hours): Temp Pulse Resp BP Pulse Ox 98.5 F 79 20 166/88 H 95 09/11/18 16:23 09/11/18 16:23 09/11/18 16:23 09/11/18 16:23 09/11/18 16:23 Intake and Output: 09/11/18 09/11/18 06:59 18:59 Intake Total 340 Output Total 600 Balance -260 - Medications Medications: Current Medications Calamine (Calamine Lotion) 1 ml TOP BID PRN PRN Reason: Dry skin Carvedilol (Coreg) 12.5 mg PO BID [facility] Last Admin: 09/11/18 09:36 Dose: 12.5 mg Furosemide (Lasix) 40 mg PO DAILY [facility] Last Admin: 09/11/18 09:36 Dose: 40 mg Glipizide (Glucotrol) 5 mg PO ACB [facility] Last Admin: 08/31/18 07:45 Dose: Not Given Insulin Human Lispro (Humalog High) 0 units SC Q6 [facility]; Protocol Last Admin: 09/11/18 12:48 Dose: 4 u Lidocaine (Lidoderm) 1 ea TD DAILY [facility] Last Admin: 09/11/18 09:35 Dose: 1 ea Losartan Potassium (Cozaar) 25 mg PO DAILY [facility] Last Admin: 09/11/18 09:35 Dose: 25 mg Pantoprazole Sodium (Protonix Inj) 40 mg IVP Q12 [facility] Last Admin: 09/11/18 16:24 Dose: 40 mg Tramadol HCl (Ultram) 50 mg PO TID PRN PRN Reason: Pain, severe (8-10) Last Admin: 09/10/18 23:59 Dose: 50 mg - Labs Labs: 09/10/18 08:20 09/10/18 08:20 PT 15.9 SECONDS (9.4-12.5) H 09/09/18 06:00 INR 1.37 09/09/18 06:00 APTT 29.6 Seconds (25.1-36.5) 09/03/18 08:30 Attending/Attestation - Attestation I have personally seen and examined this patient.: Yes I have fully participated in the care of the patient.: Yes I have reviewed all pertinent clinical information, including history, physical exam and plan: Yes Notes (Text): This is an addendum to GI followup report dictated by the GI Fellow. The patient was seen and evaluated earlier. Medical records, lab studies, imagings were reviewed. Last 24 hours events reviewed. Agreed with the above treatment plan as outlined in GI Fellow's notes with the addition of the following Scheduled for colonoscopy tomorrow and is drinking Golytely. Patient has extensive ulcers involving esophagus, stomach, and including descending duodenum. Etiology is unclear. Would consider EGD at the same time as colonoscopy tomorrow for biopsy evaluation. 09/11/18 18:25
--- NOTE | 2018-09-11 15:31 | PN ---
DATE: 09/11/2018 SUBJECTIVE: The patient is in bed in no acute distress, nontoxic. PHYSICAL EXAMINATION: VITAL SIGNS: Temperature is 98, blood pressure is 160/80, respiratory rate of 20, heart rate of 88. HEENT: Unremarkable. NECK: Supple. LUNGS: Decreased breath sounds. HEART: Normal S1 and S2. ABDOMEN: Soft, nontender. LABORATORY EXAMINATION: White count of 6.8, hemoglobin of 8, platelets of 163. Chemistries reveals a BUN of 22, creatinine 0.8.. Procalcitonin is noted. Microbiology is reviewed. Review of orders reveals the patient to be off of antibiotics.. ASSESSMENT AND PLAN: This 53-year-old male was seen this morning with hypertension, diabetes, sleep apnea, congestive heart failure, hyperlipidemia, chronic obstructive lung disease, hip surgery, acute systolic congestive heart failure, positive HIV with T-cells of 36% at 361. The patient's viral load is elevated. The patient should have follow up with primary HIV brim rounder and be started on HIV medications. Harris Todd MD
[2018-09-11] MEDS ORDERED: Peg-Electrolyte Oral Soln 4L (Golytely) PO ONE (16:00)
--- NOTE | 2018-09-11 19:56 | PN ---
DATE: 09/11/2018 SUBJECTIVE: The patient denies any chest pain. No shortness of breath. PHYSICAL EXAMINATION: VITAL SIGNS: Blood pressure 162/84, heart rate 88, temperature 98.2, and respirations 20. HEENT: Pale conjunctivae. CHEST: Diminished breath sounds over the bases. HEART: S1 and S2 regular. EXTREMITIES: Improved leg edema. LABORATORY DATA: Today's blood sugars are 86 and 215 respectively. ASSESSMENT: 1. Biventricular failure. 2. Gastrointestinal bleeding. 3. Human immunodeficiency virus positive. 4. Anemia. RECOMMENDATIONS: Continue Coreg, Cozaar, glipizide, oral Lasix, and IV Protonix. The patient will undergo colonoscopy tomorrow. Beny Salgado MD
[2018-09-12] MEDS: Insulin Lispro (HUMAlog) HIGH Coverage SC SCH ×4 (03:50→17:37)
--- NOTE | 2018-09-12 06:52 | CP.PCM.PN ---
<PhuongJailynpablo L - Last Filed: 09/12/18 15:58> Subjective - Date & Time of Evaluation Date of Evaluation: 09/12/18 Time of Evaluation: 06:51 - Subjective Subjective: Resident Progress Note for Hospitalist Service Patient examined at bedside. Patient is s/p EGD and colonscopy with polypectomy which he tolerated well. Denies fevers, chills, chest pain, shortness of breath, abdominal pain. Objective - Vital Signs/Intake and Output Vital Signs (last 24 hours): Temp Pulse Resp BP Pulse Ox 99.6 F 94 H 20 114/58 L 94 L 09/12/18 00:01 09/12/18 06:00 09/12/18 00:01 09/12/18 00:01 09/12/18 00:01 Intake and Output: 09/11/18 09/12/18 18:59 06:59 Intake Total 2560 Output Total 1400 Balance 1160 - Medications Medications: Current Medications Calamine (Calamine Lotion) 1 ml TOP BID PRN PRN Reason: Dry skin Carvedilol (Coreg) 12.5 mg PO BID [facility] Last Admin: 09/11/18 18:36 Dose: 12.5 mg Furosemide (Lasix) 40 mg PO DAILY [facility] Last Admin: 09/11/18 09:36 Dose: 40 mg Glipizide (Glucotrol) 5 mg PO ACB [facility] Last Admin: 08/31/18 07:45 Dose: Not Given Insulin Human Lispro (Humalog High) 0 units SC Q6 [facility]; Protocol Last Admin: 09/12/18 06:18 Dose: Not Given Lidocaine (Lidoderm) 1 ea TD DAILY [facility] Last Admin: 09/11/18 09:35 Dose: 1 ea Losartan Potassium (Cozaar) 25 mg PO DAILY [facility] Last Admin: 09/11/18 09:35 Dose: 25 mg Pantoprazole Sodium (Protonix Inj) 40 mg IVP Q12 [facility] Last Admin: 09/11/18 22:24 Dose: 40 mg Tramadol HCl (Ultram) 50 mg PO TID PRN PRN Reason: Pain, severe (8-10) Last Admin: 09/11/18 22:24 Dose: 50 mg - Labs Labs: 09/10/18 08:20 09/10/18 08:20 PT 15.9 SECONDS (9.4-12.5) H 09/09/18 06:00 INR 1.37 09/09/18 06:00 APTT 29.6 Seconds (25.1-36.5) 09/03/18 08:30 - Additional Findings Additional findings: - Head Exam Head Exam: ATRAUMATIC, NORMOCEPHALIC - Eye Exam Eye Exam: EOMI, Normal appearance - ENT Exam ENT Exam: Mucous Membranes Moist - Respiratory Exam Respiratory Exam: Clear to Ausculation Bilateral, NORMAL BREATHING PATTERN. absent: Rales, Rhonchi, Wheezes - Cardiovascular Exam Cardiovascular Exam: REGULAR RHYTHM, +S1, +S2 - GI/Abdominal Exam GI & Abdominal Exam: Soft, Normal Bowel Sounds. absent: Distended, Firm, Guarding, Tenderness - Extremities Exam Extremities Exam: Normal Capillary Refill, Normal Inspection. absent: Pedal E erlin - Neurological Exam Neurological Exam: Alert, Awake, CN II-XII Intact, Oriented x3 - Psychiatric Exam Psychiatric exam: Normal Affect, Normal Mood - Skin Skin Exam: Normal Color Assessment and Plan - Assessment and Plan (Free Text) Assessment: 53 year old male with past medical history of HIV not on HAART, COPD, diabetes mellitus type II, HTN, HLD, systolic CHF with EF of 39%, CAD with stent, lumbar radiculopathy, gout, and HIV presented with shortness of breath and admitted for management of UGIB. Plan: Anemia 2/2 UGIB - s/p 14 units of pRBCs, 2 FFPs, 1 Plts - Abdominal U/S showed patent portal vein, trace ascites. Limited study. - Bleeding scan 09/02 showed GI hemorrhage in likely in stomach with migration through duodenum and prox small bowel. - ICU consult placed - Dr. Alesha augustin appreciated - GI consult - Dr. Larsen - demetria appreciated. - Initial EGD showed esophageal, duodenal and gastric ulcers, with coffee-ground emesis vs blood found in antrum. Moderate portal HTN gastropathy. - Repeat EGD 09/02 showed clotted blood in gastric fundus and body as well as oozing hemorrhagic duodenal ulcer where a hemostatic clip was placed - Gen Surg consulted - no indication for surgical intervention at this time - Abd/pelvis CT shows minimal ascites, unremarkable gallbladder, no overt hepatic cirrhotic pattern - first attempt at colonoscopy aborted due to incomplete prep - colonscopy this AM showed 5 mm sessile polyp which was removed, diverticula, internal hemorrhoids - EGD showed small varices in esophagus, diffuse inflammation, few non-bleeding duodenal ulcers, mild portal hypertensive gastropathy Shortness of breath - CXR consistent with cardiomegaly - ECHO shows mild systolic congestive heart failure with EF of 39% from 04/2018 - Coreg 12.5 mg PO BID - Cardio consult- Dr. Salgado - recs appreciated - Lasix 40 PO daily - Cefepime and Doxycycline for 4-7 days per ID for HCAP - 08/31 BCx neg x2 CAD with stent - EKG: Atrial fibrillation, RBBB - Troponinx3 elevated likely due to CORAZON - Cardiac catheterization in 12/2017 showed LAD lesion 80% - Continue with aspirin, antiHTN meds held - TSH: 2.41, LDL: 75 T2DM - Accuchecks - HgbA1c: 6.9 - Lispro high, Glipizide held CHARAN - Continue with CPAP/Bipap Hypertension - Coreg 12.5 mg PO BID - Losartan 25 mg PO daily Hyperlipidemia - Lipid panel unremarkable - Continue with lipitor 80 mg PO DIN HIV - HIV antibody reactive with 3.33 on PCR - CD4 count 361 - MRSA nose negative GI prophylaxis: Protonix 40 mg IV Q12 SCDs Case discussed with Dr. Esther Baca PGY-1 <Kavon Santana - Last Filed: 09/12/18 16:34> Objective - Vital Signs/Intake and Output Vital Signs (last 24 hours): Temp Pulse Resp BP Pulse Ox 98.2 F 78 16 120/61 99 09/12/18 10:50 09/12/18 14:00 09/12/18 10:50 09/12/18 11:24 09/12/18 10:50 Intake and Output: 09/12/18 09/12/18 06:59 18:59 Intake Total 120 Output Total 710 Balance -590 - Medications Medications: Current Medications Calamine (Calamine Lotion) 1 ml TOP BID PRN PRN Reason: Dry skin Carvedilol (Coreg) 12.5 mg PO BID [facility] Last Admin: 09/12/18 11:23 Dose: 12.5 mg Furosemide (Lasix) 40 mg PO DAILY [facility] Last Admin: 09/12/18 11:24 Dose: 40 mg Glipizide (Glucotrol) 5 mg PO ACB [facility] Last Admin: 08/31/18 07:45 Dose: Not Given Insulin Human Lispro (Humalog High) 0 units SC Q6 [facility]; Protocol Last Admin: 09/12/18 11:24 Dose: Not Given Lidocaine (Lidoderm) 1 ea TD DAILY [facility] Last Admin: 09/12/18 11:25 Dose: 1 ea Losartan Potassium (Cozaar) 25 mg PO DAILY [facility] Last Admin: 09/12/18 11:24 Dose: 25 mg Pantoprazole Sodium (Protonix Inj) 40 mg IVP Q12 [facility] Last Admin: 09/12/18 11:25 Dose: 40 mg Tramadol HCl (Ultram) 50 mg PO TID PRN PRN Reason: Pain, severe (8-10) Last Admin: 09/11/18 22:24 Dose: 50 mg - Labs Labs: 09/12/18 06:30 09/12/18 06:30 PT 16.5 SECONDS (9.4-12.5) H 09/12/18 06:30 INR 1.42 09/12/18 06:30 APTT 29.6 Seconds (25.1-36.5) 09/03/18 08:30 Attending/Attestation - Attestation I have personally seen and examined this patient.: Yes I have fully participated in the care of the patient.: Yes I have reviewed all pertinent clinical information, including history, physical exam and plan: Yes Notes (Text): 09/12/18 16:29 53 year old male with past medical history of HIV not on HAART, COPD, CAD, CHF, and diabetes who initially presented with shortness of breath, treated for CHF exacerbation. Hospital course was complicated with acute blood loss anemia requiring multiple PRBC transfusions. EGD showed esophageal, duodenal and gastric ulcers with moderate portal hypertensive gastropathy. Repeat EGD showed clotted blood in gastric fundus and body with oozing hemorrhagic duodenal ulcer with hemostatic clip placement. Patient is s/p EGD/colonoscopy today; will follow up with results. Patient is s/p antibiotics for HCAP. He is on coreg, cozaar and lasix. ID is following for HIV. Patient will need close outpatient follow up. Will replete and repeat potassium. PT follow up was requested today for d/c recommendations to [facility] vs [facility]. Kavon Santana MD Hospitalist.
[2018-09-12 06:53] LABS: INR 1.42; PROTHROMBIN TIME 16.5 SECONDS (9.4-12.5)
[2018-09-12 07:03] LABS: HEMOGLOBIN 7.9 g/dL (14.0-18.0); MEAN CELL VOLUME 86.1 fl (80.0-105.0); MEAN CORPUSCULAR HEMOGLOBIN 27.4 pg (25.0-35.0); MEAN CORPUSCULAR HGB CONC 31.9 g/dl (31.0-37.0); RBC 2.88 10^6/uL (3.5-6.1); RED CELL DISTRIBUTION WIDTH 17.4 % (11.5-14.5); WHITE BLOOD COUNT 5.6 10^3/uL (4.5-11.0)
[2018-09-12 09:04] LABS: ALB/GLOB RATIO 0.8 (1.1-1.8); ALBUMIN 2.8 g/dL (3.0-4.8); ALT/SGPT 30 U/L (7-56); AST/SGOT 33 U/L (17-59); BLOOD UREA NITROGEN 12 mg/dL (7-21); GFR NON-AFRICAN AMERICAN > 60
[2018-09-12] MEDS ORDERED: Propofol 10 mg/ml Inj (20 ML) ONE ×2 (09:21→10:03)
[2018-09-12] MEDS ORDERED: Lidocaine PF 2% (5 ml) Inj (For Cardiac Arrhy) ONE (09:21)
[2018-09-12] MEDS ORDERED: Etomidate 20 mg/10ml Inj IV ONE ×2 (09:21→09:59)
[2018-09-12] MEDS ORDERED: Phenylephrine 10 mg/ml Inj ONE (09:30)
[2018-09-12] MEDS ORDERED: ePHEDrine 50 mg/ml Inj ONE (09:59)
[2018-09-12] MEDS ORDERED: Sodium Chloride 0.9% 1,000 ML IV SCH (10:30)
[2018-09-12] MEDS ORDERED: Magnesium Sulfate 2 gm/50 ml 2 GM/50 ML BAG IVPB ONE ×2 (10:45→20:47)
[2018-09-12] MEDS: Lidocaine 5% Patch TD SCH (11:25)
--- NOTE | 2018-09-12 18:01 | PN ---
DATE: 09/10/2018 SUBJECTIVE: The patient underwent colonoscopy today with a finding of 5-mm polyp in the rectum, removed with a hot snare. Diverticulosis in the entire colon. Internal hemorrhoids. PHYSICAL EXAMINATION VITAL SIGNS: Blood pressure 120/61, heart rate 88, temperature 98.2, respirations 16. HEENT: Pale conjunctivae. CHEST: Clear. HEART: S1 and S2 regular. EXTREMITIES: 1+ pitting edema. LABORATORY DATA: Reveals potassium level is 3.0. Today's hemoglobin and hematocrit are 7.8 and 24.8, white count and platelet count are within normal limit. ASSESSMENT: 1. Cardiomyopathy. 2. Gastrointestinal bleeding. 3. Esophageal, gastric, and duodenal ulcers. 4. Diverticulosis. 5. Hypokalemia. RECOMMENDATIONS: Continue Coreg 12.5 mg twice a day, Cozaar 25 mg once a day, Lasix 40 mg p.o. once a day. The patient is receiving a total of 20 mEq of intravenous potassium replacement now. Followup BMP in a.m. Beny Salgado MD
--- NOTE | 2018-09-12 18:17 | PN ---
DATE: 09/12/2018 SUBJECTIVE: The patient is in bed, in no acute distress, nontoxic. PHYSICAL EXAMINATION: VITAL SIGNS: Temperature is 98, blood pressure is 130/70 and respiratory rate 18. HEENT: Unremarkable. NECK: Supple. LUNGS: Decreased breath sounds. HEART: Normal S1 and S2. ABDOMEN: Soft and nontender. LABORATORY DATA: Reveals a white count of 5.6 and hemoglobin of 7. BUN 12 and creatinine is 0.6. The patient's fourth generation HIV test is positive. The patient is seen earlier this morning scheduled for colonoscopy and biopsy of polypectomy. ASSESSMENT AND PLAN: This is a 53-year-old male this morning with hypertension, diabetes, sleep apnea, congestive heart failure, hyperlipidemia, chronic obstructive lung disease, hip surgery, acute systolic congestive heart failure, positive human immunodeficiency virus, with T-cells of 36%, T4 of 361. The patient's viral load is elevated. Should have HIV care managing of HIV and needs HIV care. Harris Todd MD
[2018-09-12 19:09] LABS: BLOOD UREA NITROGEN 14 mg/dL (7-21); CALCIUM 7.8 mg/dL (8.4-10.5); GFR NON-AFRICAN AMERICAN > 60
[2018-09-13] MEDS: Insulin Lispro (HUMAlog) HIGH Coverage SC SCH ×3 (00:06→17:56)
[2018-09-13 07:05] LABS: BASO # 0.02 K/mm3 (0.0-2.0); BASO % 0.4 % (0.0-3.0); EOS # 0.1 (0.0-0.7); GRAN # 2.73 (1.4-6.5); GRAN % 48.6 % (50.0-68.0); HEMOGLOBIN 7.8 g/dL (14.0-18.0); LYMPH % 35.5 % (22.0-35.0); MEAN CELL VOLUME 86.7 fl (80.0-105.0); MEAN CORPUSCULAR HEMOGLOBIN 27.3 pg (25.0-35.0); MEAN CORPUSCULAR HGB CONC 31.5 g/dl (31.0-37.0); MEAN PLATELET VOLUME 9.6 fl (7.0-11.0); MONO # 0.8 (0.1-0.6); MONO % 13.5 % (1.0-6.0); RBC 2.86 10^6/uL (3.5-6.1); RED CELL DISTRIBUTION WIDTH 17.5 % (11.5-14.5); WHITE BLOOD COUNT 5.6 10^3/uL (4.5-11.0)
[2018-09-13 07:30] LABS: ALB/GLOB RATIO 0.8 (1.1-1.8); ALBUMIN 2.9 g/dL (3.0-4.8); ALT/SGPT 25 U/L (7-56); AST/SGOT 38 U/L (17-59); BLOOD UREA NITROGEN 13 mg/dL (7-21); CALCIUM 8.1 mg/dL (8.4-10.5); GFR NON-AFRICAN AMERICAN > 60
[2018-09-13] MEDS ORDERED: Magnesium Sulfate 2 gm/50 ml 2 GM/50 ML BAG IVPB ONE (07:49)
[2018-09-13] MEDS ORDERED: Potassium Chloride 40 mEq/30 ml LIQ UD PO ONE (07:49)
[2018-09-13] MEDS: Potassium Chloride 20 mEq ER Tab PO SCH (09:03)
[2018-09-13] MEDS: Lidocaine 5% Patch TD SCH (09:04)
[2018-09-13] MEDS: Magnesium Chloride 64 mg ER Tab PO SCH (10:30)
--- NOTE | 2018-09-13 11:00 | CP.PCM.PN ---
<Trav Mosley - Last Filed: 09/13/18 10:57> Subjective - Date & Time of Evaluation Date of Evaluation: 09/13/18 Time of Evaluation: 08:45 - Subjective Subjective: PGY-4 GI Fellow Prog Note Pt eating breakfast when seen this AM. States he is doing well without complaints. No signs of bleeding, denied abd pain. 5 point ROS negative other than stated above Objective - Vital Signs/Intake and Output Vital Signs (last 24 hours): Temp Pulse Resp BP Pulse Ox 97.9 F 88 20 119/61 98 09/13/18 07:47 09/13/18 09:02 09/13/18 07:47 09/13/18 09:03 09/13/18 07:47 Intake and Output: 09/13/18 09/13/18 06:59 18:59 Intake Total 500 Output Total 600 Balance -100 - Medications Medications: Current Medications Calamine (Calamine Lotion) 1 ml TOP BID PRN PRN Reason: Dry skin Carvedilol (Coreg) 12.5 mg PO BID [facility] Last Admin: 09/13/18 09:01 Dose: 12.5 mg Furosemide (Lasix) 40 mg PO DAILY [facility] Last Admin: 09/13/18 09:03 Dose: 40 mg Glipizide (Glucotrol) 5 mg PO ACB [facility] Last Admin: 08/31/18 07:45 Dose: Not Given Insulin Human Lispro (Humalog High) 0 units SC Q6 [facility]; Protocol Last Admin: 09/13/18 00:06 Dose: Not Given Lidocaine (Lidoderm) 1 ea TD DAILY [facility] Last Admin: 09/13/18 09:04 Dose: 1 ea Losartan Potassium (Cozaar) 25 mg PO DAILY [facility] Last Admin: 09/13/18 09:02 Dose: 25 mg Magnesium Chloride (Slow-Mag) 64 mg PO DAILY [facility] Pantoprazole Sodium (Protonix Inj) 40 mg IVP Q12 [facility] Last Admin: 09/13/18 09:06 Dose: 40 mg Potassium Chloride (K-Dur 20 Meq Er Tab) 20 meq PO BRK [facility] Last Admin: 09/13/18 09:03 Dose: 20 meq Tramadol HCl (Ultram) 50 mg PO TID PRN PRN Reason: Pain, severe (8-10) Last Admin: 09/13/18 00:08 Dose: 50 mg - Labs Labs: 09/13/18 06:00 09/13/18 06:00 PT 16.5 SECONDS (9.4-12.5) H 09/12/18 06:30 INR 1.42 09/12/18 06:30 APTT 29.6 Seconds (25.1-36.5) 09/03/18 08:30 - Constitutional Appears: Well, No Acute Distress - Head Exam Head Exam: ATRAUMATIC, NORMAL INSPECTION - Eye Exam Eye Exam: EOMI. absent: Scleral icterus - ENT Exam ENT Exam: Mucous Membranes Moist. absent: Mucous Membranes Dry - Respiratory Exam Respiratory Exam: NORMAL BREATHING PATTERN. absent: Accessory Muscle Use, Respiratory Distress - GI/Abdominal Exam GI & Abdominal Exam: Soft, Normal Bowel Sounds. absent: Bruit, Distended, Firm, Guarding, Rigid, Tenderness, Mass, Organomegaly, Pulsatile Mass Additional comments: obese limiting exam some Assessment and Plan - Assessment and Plan (Free Text) Assessment: 53yo male with PMHx significant for HIV not on HAART, COPD, systolic CHF with biventricular failure, CAD s/p PCI, DM, HTN, hyperlipidemia who presented to the hospital 5 days ago with shortness of breath -Acute blood loss anemia 2/2 severe PUD: Biopsies taken on repeat EGD 09/12 -Biventricular heart failure -COPD with acute exacerbation -CAD -HIV -Anal condyloma: Seen on [facility]SP[facility] 09/12 Plan: - Tolerating diet well - F/u path reports - Cont PO Pantoprazole 40 mg daily - OK to DC with close outpatient f/u Pt discussed with Dr. Larsen; please see attestation for further recs/changes Trav Mosley, PGY-4 <Cyril Larsen V - Last Filed: 09/14/18 00:02> Objective - Vital Signs/Intake and Output Vital Signs (last 24 hours): Temp Pulse Resp BP Pulse Ox 98.2 F 91 H 20 132/81 96 09/13/18 16:43 09/13/18 18:00 09/13/18 16:43 09/13/18 17:29 09/13/18 16:43 Intake and Output: 09/13/18 09/14/18 18:59 06:59 Intake Total 1520 Output Total 1000 Balance 520 - Medications Medications: Current Medications Calamine (Calamine Lotion) 1 ml TOP BID PRN PRN Reason: Dry skin Carvedilol (Coreg) 12.5 mg PO BID [facility] Last Admin: 09/13/18 17:29 Dose: 12.5 mg Furosemide (Lasix) 40 mg PO DAILY [facility] Last Admin: 09/13/18 09:03 Dose: 40 mg Glipizide (Glucotrol) 5 mg PO ACB [facility] Last Admin: 08/31/18 07:45 Dose: Not Given Insulin Human Lispro (Humalog High) 0 units SC Q6 [facility]; Protocol Last Admin: 09/13/18 17:56 Dose: 7 u Lidocaine (Lidoderm) 1 ea TD DAILY [facility] Last Admin: 09/13/18 09:04 Dose: 1 ea Losartan Potassium (Cozaar) 25 mg PO DAILY [facility] Last Admin: 09/13/18 09:02 Dose: 25 mg Magnesium Chloride (Slow-Mag) 64 mg PO DAILY [facility] Last Admin: 09/13/18 10:30 Dose: 64 mg Pantoprazole Sodium (Protonix Ec Tab) 40 mg PO 0600 [facility] Potassium Chloride (K-Dur 20 Meq Er Tab) 20 meq PO BRK [facility] Last Admin: 09/13/18 09:03 Dose: 20 meq Tramadol HCl (Ultram) 50 mg PO TID PRN PRN Reason: Pain, severe (8-10) Last Admin: 09/13/18 17:27 Dose: 50 mg - Labs Labs: 09/13/18 06:00 09/13/18 06:00 PT 16.5 SECONDS (9.4-12.5) H 09/12/18 06:30 INR 1.42 09/12/18 06:30 APTT 29.6 Seconds (25.1-36.5) 09/03/18 08:30 Attending/Attestation - Attestation I have personally seen and examined this patient.: Yes I have fully participated in the care of the patient.: Yes I have reviewed all pertinent clinical information, including history, physical exam and plan: Yes Notes (Text): This is an addendum to GI progress report dictated by the GI Fellow. The patient was seen and examined earlier. Medical records, lab studies, imagings were reviewed. Last 24 hours events reviewed. Agreed with the above treatment plan as outlined in GI Fellow 's notes with the addition of the following 09/14/18 00:02
--- NOTE | 2018-09-13 12:13 | CP.PCM.PN ---
<Truman Canales - Last Filed: 09/13/18 12:13> Subjective - Date & Time of Evaluation Date of Evaluation: 09/13/18 Time of Evaluation: 08:15 - Subjective Subjective: Patient seen and examined at bedside. Patient with no complaints today. Patient tolerating diet. Denies chest pain, shortness of breath, nausea, vomiting, diarrhea, fever, chills. Objective - Vital Signs/Intake and Output Vital Signs (last 24 hours): Temp Pulse Resp BP Pulse Ox 97.9 F 98 H 20 119/61 98 09/13/18 07:47 09/13/18 10:00 09/13/18 07:47 09/13/18 09:03 09/13/18 07:47 Intake and Output: 09/13/18 09/13/18 06:59 18:59 Intake Total 500 Output Total 600 Balance -100 - Medications Medications: Current Medications Calamine (Calamine Lotion) 1 ml TOP BID PRN PRN Reason: Dry skin Carvedilol (Coreg) 12.5 mg PO BID [facility] Last Admin: 09/13/18 09:01 Dose: 12.5 mg Furosemide (Lasix) 40 mg PO DAILY [facility] Last Admin: 09/13/18 09:03 Dose: 40 mg Glipizide (Glucotrol) 5 mg PO ACB [facility] Last Admin: 08/31/18 07:45 Dose: Not Given Insulin Human Lispro (Humalog High) 0 units SC Q6 [facility]; Protocol Last Admin: 09/13/18 00:06 Dose: Not Given Lidocaine (Lidoderm) 1 ea TD DAILY [facility] Last Admin: 09/13/18 09:04 Dose: 1 ea Losartan Potassium (Cozaar) 25 mg PO DAILY [facility] Last Admin: 09/13/18 09:02 Dose: 25 mg Magnesium Chloride (Slow-Mag) 64 mg PO DAILY [facility] Pantoprazole Sodium (Protonix Ec Tab) 40 mg PO 0600 [facility] Potassium Chloride (K-Dur 20 Meq Er Tab) 20 meq PO BRK [facility] Last Admin: 09/13/18 09:03 Dose: 20 meq Tramadol HCl (Ultram) 50 mg PO TID PRN PRN Reason: Pain, severe (8-10) Last Admin: 09/13/18 00:08 Dose: 50 mg - Labs Labs: 09/13/18 06:00 09/13/18 06:00 PT 16.5 SECONDS (9.4-12.5) H 09/12/18 06:30 INR 1.42 09/12/18 06:30 APTT 29.6 Seconds (25.1-36.5) 09/03/18 08:30 - Constitutional Appears: Non-toxic, No Acute Distress - Head Exam Head Exam: ATRAUMATIC, NORMAL INSPECTION, NORMOCEPHALIC - ENT Exam ENT Exam: Mucous Membranes Moist, Normal Exam - Respiratory Exam Respiratory Exam: Clear to Ausculation Bilateral, NORMAL BREATHING PATTERN. absent: Rales, Rhonchi, Wheezes - Cardiovascular Exam Cardiovascular Exam: RRR, +S1, +S2 - GI/Abdominal Exam GI & Abdominal Exam: Soft, Normal Bowel Sounds. absent: Tenderness - Neurological Exam Neurological Exam: Alert, Awake, Oriented x3 - Psychiatric Exam Psychiatric exam: Normal Affect, Normal Mood - Skin Skin Exam: Dry, Intact, Warm Assessment and Plan - Assessment and Plan (Free Text) Plan: 53 year old male with past medical history of HIV not on HAART, COPD, DM type 2, HTN, HLD, systolic CHF with EF of 39%, CAD s/p stent placement, lumbar radiculopathy, and gout presented with CHF exacerbation complicated by Upper GI bleed. Patient recommended for [facility]IE by Physical Therapy, patient would like to go home with services. Normocytic Anemia - s/p 14 units of pRBCs, 2 FFPs, 1 Plts - Endoscopy showing gastritis and nonbleeding duodenal ulcers, portal gastropathy along with gastric clip - Colonoscopy showing Condyloma and internal hemorrhoids - Follow up pathology results - Bleeding scan 09/02 showed GI hemorrhage in likely in stomach with migration through duodenum and prox small bowel. - Gen Surg consulted - no indication for surgical intervention at this time Shortness of breath - Coreg 12.5 mg PO BID - Lasix 40 PO daily - Cozaar 25 mg daily - S/p abx for HCAP T2DM - ISS Humalog high Hypertension - Coreg 12.5 mg PO BID - Losartan 25 mg PO daily - Lasix 40 mg PO daily Hyperlipidemia - Continue with Lipitor HIV - HIV antibody reactive with 3.33 on PCR - CD4 count 361 - ID following, continue to follow up outpatient Prophylaxis - Protonix - ROSALINDs Parker, PGY-3 <Kavon Santana A - Last Filed: 09/13/18 12:40> Objective - Vital Signs/Intake and Output Vital Signs (last 24 hours): Temp Pulse Resp BP Pulse Ox 97.9 F 98 H 20 119/61 98 09/13/18 07:47 09/13/18 10:00 09/13/18 07:47 09/13/18 09:03 09/13/18 07:47 Intake and Output: 09/13/18 09/13/18 06:59 18:59 Intake Total 500 Output Total 600 Balance -100 - Medications Medications: Current Medications Calamine (Calamine Lotion) 1 ml TOP BID PRN PRN Reason: Dry skin Carvedilol (Coreg) 12.5 mg PO BID [facility] Last Admin: 09/13/18 09:01 Dose: 12.5 mg Furosemide (Lasix) 40 mg PO DAILY [facility] Last Admin: 09/13/18 09:03 Dose: 40 mg Glipizide (Glucotrol) 5 mg PO ACB [facility] Last Admin: 08/31/18 07:45 Dose: Not Given Insulin Human Lispro (Humalog High) 0 units SC Q6 [facility]; Protocol Last Admin: 09/13/18 00:06 Dose: Not Given Lidocaine (Lidoderm) 1 ea TD DAILY [facility] Last Admin: 09/13/18 09:04 Dose: 1 ea Losartan Potassium (Cozaar) 25 mg PO DAILY [facility] Last Admin: 09/13/18 09:02 Dose: 25 mg Magnesium Chloride (Slow-Mag) 64 mg PO DAILY [facility] Last Admin: 09/13/18 10:30 Dose: 64 mg Pantoprazole Sodium (Protonix Ec Tab) 40 mg PO 0600 [facility] Potassium Chloride (K-Dur 20 Meq Er Tab) 20 meq PO BRK [facility] Last Admin: 09/13/18 09:03 Dose: 20 meq Tramadol HCl (Ultram) 50 mg PO TID PRN PRN Reason: Pain, severe (8-10) Last Admin: 09/13/18 00:08 Dose: 50 mg - Labs Labs: 09/13/18 06:00 09/13/18 06:00 PT 16.5 SECONDS (9.4-12.5) H 09/12/18 06:30 INR 1.42 09/12/18 06:30 APTT 29.6 Seconds (25.1-36.5) 09/03/18 08:30 Attending/Attestation - Attestation I have personally seen and examined this patient.: Yes I have fully participated in the care of the patient.: Yes I have reviewed all pertinent clinical information, including history, physical exam and plan: Yes Notes (Text): 09/13/18 12:38 53 year old male with past medical history of HIV not on HAART, COPD, CAD, CHF, and diabetes who initially presented with shortness of breath, treated for CHF exacerbation. Hospital course was complicated with acute blood loss anemia requiring multiple PRBC transfusions. EGD showed esophageal, duodenal and gastric ulcers with moderate portal hypertensive gastropathy. Repeat EGD showed clotted blood in gastric fundus and body with oozing hemorrhagic duodenal ulcer with hemostatic clip placement. Patient is s/p EGD/colonoscopy yesterday as above. Patient is s/p antibiotics for HCAP. He is on coreg, cozaar and lasix. ID is following for HIV. Patient will need close outpatient follow up. Will replete and repeat potassium and magnesium. PT recommended [facility] vs HWS. Patient prefers to go home with home services. Will speak with CMx/Sw for d/c planning home with home services tomorrow. Patient states no one is home today due to holidays and he has no keys but will go home tomorrow. Kavon Santana MD Hospitalist.
--- NOTE | 2018-09-13 14:02 | PN ---
DATE: 09/13/2018 SUBJECTIVE: The patient is in bed, in no acute distress, nontoxic. PHYSICAL EXAMINATION: VITAL SIGNS: Temperature is 98, blood pressure is 119/60 and respiratory rate of 18. HEENT: Unremarkable. NECK: Supple. LUNGS: Decreased breath sounds. HEART: Normal, S1 and S2. ABDOMEN: Soft. LABORATORY DATA: Reveals a white count of 5.6 and hemoglobin of 7. Chemistry reveals a BUN of 13 and creatinine of 0.7. Urinalysis is noted. Serology is noted. The patient's HIV is positive. ASSESSMENT AND PLAN: A 53-year-old male with hypertension, diabetes, sleep apnea, congestive heart failure, hyperlipidemia, chronic obstructive lung disease, hip surgery with acute systolic congestive heart failure, positive human immunodeficiency virus with T-cells of 36%, T4 of 361, elevated viral load, fourth generation is positive. The patient needs to be on HIV medications and needs established HIV care on discharge. Harris Todd MD
[2018-09-14] MEDS: Insulin Lispro (HUMAlog) HIGH Coverage SC SCH ×2 (00:09→19:12)
[2018-09-14] MEDS: Pantoprazole 40 mg EC Tab PO SCH (05:44)
[2018-09-14 09:23] LABS: BASO # 0.01 K/mm3 (0.0-2.0); BASO % 0.2 % (0.0-3.0); EOS # 0.1 (0.0-0.7); EOS % 1.9 % (1.5-5.0); GRAN # 2.68 (1.4-6.5); GRAN % 49.7 % (50.0-68.0); HEMOGLOBIN 7.5 g/dL (14.0-18.0); LYMPH % 37.2 % (22.0-35.0); MEAN CELL VOLUME 86.5 fl (80.0-105.0); MEAN CORPUSCULAR HEMOGLOBIN 27.4 pg (25.0-35.0); MEAN CORPUSCULAR HGB CONC 31.6 g/dl (31.0-37.0); MEAN PLATELET VOLUME 9.1 fl (7.0-11.0); MONO # 0.6 (0.1-0.6); RBC 2.74 10^6/uL (3.5-6.1); WHITE BLOOD COUNT 5.4 10^3/uL (4.5-11.0)
[2018-09-14 09:35] LABS: ALB/GLOB RATIO 0.8 (1.1-1.8); ALBUMIN 2.9 g/dL (3.0-4.8); ALT/SGPT 26 U/L (7-56); AST/SGOT 34 U/L (17-59); BLOOD UREA NITROGEN 16 mg/dL (7-21); GFR NON-AFRICAN AMERICAN > 60
[2018-09-14] MEDS: Magnesium Chloride 64 mg ER Tab PO SCH (10:43)
[2018-09-14] MEDS: Lidocaine 5% Patch TD SCH (10:43)
[2018-09-14] MEDS: Potassium Chloride 20 mEq ER Tab PO SCH (10:43)
--- NOTE | 2018-09-14 13:02 | CP.PCM.PN ---
Subjective - Date & Time of Evaluation Date of Evaluation: 09/14/18 Time of Evaluation: 09:40 - Subjective Subjective: Comfortable, no fevers. Objective - Vital Signs/Intake and Output Vital Signs (last 24 hours): Temp Pulse Resp BP Pulse Ox 98.2 F 87 20 133/95 H 95 09/14/18 08:33 09/14/18 08:33 09/14/18 08:33 09/14/18 08:33 09/14/18 08:33 Intake and Output: 09/14/18 09/14/18 06:59 18:59 Output Total 400 Balance -400 - Medications Medications: Current Medications Calamine (Calamine Lotion) 1 ml TOP BID PRN PRN Reason: Dry skin Carvedilol (Coreg) 12.5 mg PO BID [facility] Last Admin: 09/13/18 17:29 Dose: 12.5 mg Furosemide (Lasix) 40 mg PO DAILY [facility] Last Admin: 09/13/18 09:03 Dose: 40 mg Glipizide (Glucotrol) 5 mg PO ACB [facility] Last Admin: 08/31/18 07:45 Dose: Not Given Insulin Human Lispro (Humalog High) 0 units SC Q6 [facility]; Protocol Last Admin: 09/14/18 00:09 Dose: Not Given Lidocaine (Lidoderm) 1 ea TD DAILY [facility] Last Admin: 09/13/18 09:04 Dose: 1 ea Losartan Potassium (Cozaar) 25 mg PO DAILY [facility] Last Admin: 09/13/18 09:02 Dose: 25 mg Magnesium Chloride (Slow-Mag) 64 mg PO DAILY [facility] Last Admin: 09/13/18 10:30 Dose: 64 mg Pantoprazole Sodium (Protonix Ec Tab) 40 mg PO 0600 [facility] Last Admin: 09/14/18 05:44 Dose: 40 mg Potassium Chloride (K-Dur 20 Meq Er Tab) 20 meq PO BRK [facility] Last Admin: 09/13/18 09:03 Dose: 20 meq Tramadol HCl (Ultram) 50 mg PO TID PRN PRN Reason: Pain, severe (8-10) Last Admin: 09/13/18 23:57 Dose: 50 mg - Labs Labs: 09/14/18 09:00 09/14/18 09:00 PT 16.5 SECONDS (9.4-12.5) H 09/12/18 06:30 INR 1.42 09/12/18 06:30 APTT 29.6 Seconds (25.1-36.5) 09/03/18 08:30 - Constitutional Appears: Chronically Ill - Head Exam Head Exam: NORMAL INSPECTION - Respiratory Exam Respiratory Exam: Decreased Breath Sounds - Cardiovascular Exam Cardiovascular Exam: +S1, +S2 - GI/Abdominal Exam GI & Abdominal Exam: Soft. absent: Tenderness Assessment and Plan - Assessment and Plan (Free Text) Plan: Assessment S/P SIRS due to acute on chronic systolic heart failure, R/O left sided HCAP, clinically improved chronic anemia with drop in hemoglobin, due to GI bleeding positive HIV PCR and positive 4th generation antibody test, acute versus chronic HIV infection S/P sepsis due to right lower lobe HCAP, S/P treatment with antibiotics obesity with BMI 35 COPD Plan T-cell count is above 200 - patient will need to be arranged to see an HIV specialist on discharge for further management of HIV and to be started on ART as an outpatient ICU managing anemia and respiratory distress - continue to monitor off antibiotics since he is at risk for hospital-acquired infections patient had EGD anhd colonoscopy and had polyp from colon removed overall prognosis is poor
[2018-09-14 13:03] LABS: HEMOGLOBIN 7.8 g/dL (14.0-18.0)
--- NOTE | 2018-09-14 13:04 | CP.PCM.PN ---
Subjective - Date & Time of Evaluation Date of Evaluation: 09/14/18 Time of Evaluation: 11:00 - Subjective Subjective: PGY6 GI Fellow Progress Note Patient seen and examined bedside this morning. The patient states he is feeling well today and is eager to return home. No events overnight. 12 system ROS performed and negative except where stated Objective - Vital Signs/Intake and Output Vital Signs (last 24 hours): Temp Pulse Resp BP Pulse Ox 98.2 F 87 20 133/95 H 95 09/14/18 08:33 09/14/18 10:42 09/14/18 08:33 09/14/18 10:43 09/14/18 08:33 Intake and Output: 09/14/18 09/14/18 06:59 18:59 Output Total 400 Balance -400 - Medications Medications: Current Medications Calamine (Calamine Lotion) 1 ml TOP BID PRN PRN Reason: Dry skin Carvedilol (Coreg) 12.5 mg PO BID [facility] Last Admin: 09/14/18 10:40 Dose: 12.5 mg Furosemide (Lasix) 40 mg PO DAILY [facility] Last Admin: 09/14/18 10:43 Dose: 40 mg Glipizide (Glucotrol) 5 mg PO ACB [facility] Last Admin: 08/31/18 07:45 Dose: Not Given Insulin Human Lispro (Humalog High) 0 units SC Q6 [facility]; Protocol Last Admin: 09/14/18 00:09 Dose: Not Given Lidocaine (Lidoderm) 1 ea TD DAILY [facility] Last Admin: 09/14/18 10:43 Dose: 1 ea Losartan Potassium (Cozaar) 25 mg PO DAILY [facility] Last Admin: 09/14/18 10:42 Dose: 25 mg Magnesium Chloride (Slow-Mag) 64 mg PO DAILY [facility] Last Admin: 09/14/18 10:43 Dose: 64 mg Pantoprazole Sodium (Protonix Ec Tab) 40 mg PO 0600 [facility] Last Admin: 09/14/18 05:44 Dose: 40 mg Potassium Chloride (K-Dur 20 Meq Er Tab) 20 meq PO BRK [facility] Last Admin: 09/14/18 10:43 Dose: 20 meq Tramadol HCl (Ultram) 50 mg PO TID PRN PRN Reason: Pain, severe (8-10) Last Admin: 09/13/18 23:57 Dose: 50 mg - Labs Labs: 09/14/18 09:00 09/14/18 09:00 PT 16.5 SECONDS (9.4-12.5) H 09/12/18 06:30 INR 1.42 09/12/18 06:30 APTT 29.6 Seconds (25.1-36.5) 09/03/18 08:30 - Constitutional Appears: Non-toxic, No Acute Distress - Eye Exam Eye Exam: EOMI, PERRL - ENT Exam ENT Exam: Mucous Membranes Moist - Respiratory Exam Respiratory Exam: Clear to Ausculation Bilateral. absent: Rales, Rhonchi, Wheezes - Cardiovascular Exam Cardiovascular Exam: RRR, +S1, +S2 - GI/Abdominal Exam GI & Abdominal Exam: Soft, Normal Bowel Sounds. absent: Distended, Firm, Guarding, Rigid, Tenderness, Organomegaly - Extremities Exam Extremities Exam: Normal Inspection. absent: Pedal Edema - Neurological Exam Neurological Exam: Alert, Awake, Oriented x3 - Psychiatric Exam Psychiatric exam: Normal Affect, Normal Mood - Skin Skin Exam: Dry, Warm Assessment and Plan - Assessment and Plan (Free Text) Assessment: Patient is a 53yo male with PMHx significant for HIV not on HAART, COPD, systolic CHF with biventricular failure, CAD s/p PCI, DM, HTN, hyperlipidemia who presented to the hospital 5 days ago with shortness of breath -Acute blood loss anemia 2/2 severe PUD -Biventricular heart failure -COPD with acute exacerbation -CAD -HIV Plan: -HGB again down to 7.5 -Case discussed with primary service, plan for 1 unit PRBC -Likely D/C today -Stressed importance of outpatient follow up with PCP, ID (HIV tx) and GI -Awaiting biopsy results
--- NOTE | 2018-09-14 14:33 | CP.PCM.DIS ---
<Rc Wong - Last Filed: 09/14/18 15:45> Provider - Provider Date of Admission: 08/25/18 17:47 Attending physician: Kavon Santana MD Primary care physician: Yoni Arenas MD Consults: 08/25/18 19:56 Cardiology Consult Routine Comment: Consulting Provider: Beny Salgado Consulting Physician: Beny Salgado Reason for Consult: HFrEF, ? CHF exacerbation, borderline trop 08/27/18 12:52 Psychiatry Consult Routine Comment: severe agitation Consulting Provider: Yevgeniy Burris Consulting Physician: Yevgeniy Burris Reason for Consult: severe agitation and disruptions such as pulling out l shirley 08/28/18 14:24 Physician Consult Routine Comment: HIV status and recommendations Consulting Provider: Jaden Groves Consulting Physician: Jaden Groves Reason for Consult: HIV status and recommendations 08/30/18 10:08 Gastroenterology Consult Routine Comment: Consulting Provider: Cyril Larsen V Consulting Physician: Cyril Larsen V Reason for Consult: + occult stool, Hg now 5.6 08/30/18 15:17 Pulmonology Consult Routine Comment: Consulting Provider: Dago Eduardo Consulting Physician: Dago Eduardo Reason for Consult: severe anemia, HFrEF, Hgb 5.4 08/30/18 18:51 Physician Consult Routine Comment: 5 system failing, melena, hgb 5.4 Dr. Larsen req Consulting Provider: Randall Mcwilliams Consulting Physician: Randall Mcwilliams Reason for Consult: eval for unit Patient has melena hgb 5.4, system failure Additional Comments: eval for unit Please call Dr. Larsen 08/31/18 08:00 Consult [Physician Consult] Routine Comment: Consulting Provider: Bruce Vizcarra Consulting Physician: Brcue Vizcarra Reason for Consult: upper gi bleed 09/05/18 12:34 Physician Consult Routine Comment: Consulting Provider: Louis Ramirez Consulting Physician: Louis Ramirez Reason for Consult: possible embolization for GI bleed Time Spent in preparation of Discharge (in minutes): 35 Hospital Course - Lab Results Lab Results: Micro Results 08/31/18 17:30 Blood Blood Culture - Final NO GROWTH AFTER 5 DAYS 12/12/18 17:30 Blood Gram Stain - Final TEST NOT PERFORMED 08/31/18 17:00 Blood Blood Culture - Final NO GROWTH AFTER 5 DAYS 08/31/18 17:00 Blood Gram Stain - Final TEST NOT PERFORMED 08/30/18 21:47 Nose MRSA Culture (Admit) - Final MRSA NOT DETECTED 08/25/18 17:30 Blood-Venous Blood Culture - Final NO GROWTH AFTER 5 DAYS 08/25/18 17:30 Blood-Venous Gram Stain - Final TEST NOT PERFORMED 08/25/18 16:40 Blood-Venous Blood Culture - Final NO GROWTH AFTER 5 DAYS 08/25/18 16:40 Blood-Venous Gram Stain - Final TEST NOT PERFORMED 08/25/18 19:30 Urine Urine Culture - Final Most Recent Lab Values WBC 5.4 10^3/uL (4.5-11.0) 09/14/18 09:00 RBC 2.74 10^6/uL (3.5-6.1) L 09/14/18 09:00 Hgb 7.8 g/dL (14.0-18.0) L 09/14/18 12:50 Hct 24.9 % (42.0-52.0) L 09/14/18 12:50 MCV 86.5 fl (80.0-105.0) 09/14/18 09:00 MCH 27.4 pg (25.0-35.0) 09/14/18 09:00 MCHC 31.6 g/dl (31.0-37.0) 09/14/18 09:00 RDW 18.0 % (11.5-14.5) H 09/14/18 09:00 Plt Count 216 10^3/uL (120.0-450.0) 09/14/18 09:00 MPV 9.1 fl (7.0-11.0) 09/14/18 09:00 Gran % 49.7 % (50.0-68.0) L 09/14/18 09:00 Lymph % (Auto) 37.2 % (22.0-35.0) H 09/14/18 09:00 [place] % (Auto) 11.0 % (1.0-6.0) H 09/14/18 09:00 Eos % (Auto) 1.9 % (1.5-5.0) 09/14/18 09:00 Baso % (Auto) 0.2 % (0.0-3.0) 09/14/18 09:00 Gran # 2.68 (1.4-6.5) 09/14/18 09:00 Lymph # (Auto) 2.0 (1.2-3.4) 09/14/18 09:00 [place] # (Auto) 0.6 (0.1-0.6) 09/14/18 09:00 Eos # (Auto) 0.1 (0.0-0.7) 09/14/18 09:00 Baso # (Auto) 0.01 K/mm3 (0.0-2.0) 09/14/18 09:00 Corrected WBC (Man) 9.5 K/mm3 (4.5-11.0) 08/26/18 07:00 Neutrophils % (Manual) 85 % (50.0-70.0) H 08/26/18 07:00 Lymphocytes % (Manual) 10 % (22.0-35.0) L 08/26/18 07:00 Atypical Lymphs % 1 % (0.0-0.0) H 08/26/18 07:00 Monocytes % (Manual) 4 % (1.0-6.0) 08/26/18 07:00 Nucleated RBC % 6 % 08/26/18 07:00 Differential Comment See pathology report 09/02/18 19:00 Large Platelets Present 08/26/18 07:00 Polychromasia Slight 08/26/18 07:00 Hypochromasia 1+ 08/26/18 07:00 Poikilocytosis (manual 1+ 08/26/18 07:00 Anisocytosis (manual) 1+ 08/26/18 07:00 Microcytosis (manual) 1+ 08/26/18 07:00 Target Cells Slight 08/26/18 07:00 Ovalocytes Slight 08/26/18 07:00 Schistocytes Slight 08/26/18 07:00 Retic Count 2.42 % (0.5-1.5) H 09/02/18 05:30 Haptoglobin 56.6 mg/dL (30.0-200.0) 09/02/18 05:00 PT 16.5 SECONDS (9.4-12.5) H 09/12/18 06:30 INR 1.42 09/12/18 06:30 APTT 29.6 Seconds (25.1-36.5) 09/03/18 08:30 pCO2 54 mm/Hg (35-45) H 08/31/18 20:57 pO2 101.0 mm/Hg (80-100) H 08/31/18 20:57 HCO3 38.4 mmol/L (21-28) H 08/31/18 20:57 ABG pH 7.46 (7.35-7.45) H 08/31/18 20:57 ABG Total CO2 40.1 mmol.L (22-28) H 08/31/18 20:57 ABG O2 Saturation 98.6 % (95-98) H 08/31/18 20:57 ABG O2 Content 9.8 ML/dl (15-23) L 08/31/18 20:57 ABG Base Excess 13.2 mmol/L (-2.0-3.0) H 08/31/18 20:57 ABG Hemoglobin 7.1 g/dL (11.7-17.4) L 08/31/18 20:57 ABG Carboxyhemoglobin 1.9 % (0.5-1.5) H 08/31/18 20:57 POC ABG HHb (Measured) 1.4 % (0-5) 08/31/18 20:57 ABG Methemoglobin 0.9 % (0.0-3.0) 08/31/18 20:57 ABG O2 Capacity 9.9 mL/dl (16-24) L 08/31/18 20:57 ABG Potassium 3.8 mmol/L (3.6-5.2) 08/31/18 17:00 VBG pH 7.44 (7.32-7.43) H 08/31/18 20:50 VBG pCO2 57.0 (40-60) 08/31/18 20:50 VBG HCO3 38.7 mmol/l (21-28) H 08/31/18 20:50 VBG Total CO2 40.4 mmol.L (22-28) H 08/31/18 20:50 VBG O2 Sat (Calc) 97.8 % (40-65) H 08/31/18 20:50 VBG Base Excess 12.1 mmol/L (0.0-2.0) H 08/31/18 20:50 VBG Potassium 4.0 mmol/L (3.6-5.2) 08/31/18 20:50 Hgb O2 Saturation 95.8 % (95.0-98.0) 08/31/18 20:57 Sodium 152.0 mmol/L (132-148) H 08/31/18 20:50 Chloride 110.0 mmol/L (98-107) H 08/31/18 20:50 Glucose 183 mg/dl (75-110) H 08/31/18 20:50 Lactate 3.9 mmol/L (0.7-2.1) H 08/31/18 20:50 Mechanical Rate 16 08/31/18 17:00 FiO2 30.0 % 08/31/18 20:57 Tidal Volume 500 08/31/18 17:00 PEEP 5 08/31/18 17:00 Sodium 133 mmol/L (132-148) 09/14/18 09:00 Potassium 3.8 mmol/L (3.6-5.0) 09/14/18 09:00 Chloride 101 mmol/L (98-107) 09/14/18 09:00 Carbon Dioxide 28 mmol/L (21-33) 09/14/18 09:00 Anion Gap 8 (10-20) L 09/14/18 09:00 BUN 16 mg/dL (7-21) 09/14/18 09:00 Creatinine 0.8 mg/dl (0.8-1.5) 09/14/18 09:00 Est GFR ( Amer) > 60 09/14/18 09:00 Est GFR (Non-Af Amer) > 60 09/14/18 09:00 POC Glucose (mg/dL) 255 mg/dL (65-110) H 09/13/18 17:36 Random Glucose 170 mg/dL (70-110) H 09/14/18 09:00 Hemoglobin A1c 6.9 % (4.2-6.5) H 08/26/18 10:42 Lactic Acid 2.5 mmol/L (0.7-2.1) H 08/31/18 10:40 Calcium 8.0 mg/dL (8.4-10.5) L 09/14/18 09:00 Phosphorus 3.0 mg/dL (2.5-4.5) 09/13/18 06:00 Magnesium 1.6 mg/dL (1.7-2.2) L 09/13/18 06:00 Iron 40 ug/dL (45-180) L 08/25/18 21:00 TIBC 415 ug/dL (261-462) 08/25/18 21:00 % Saturation 10 % (20-55) L 08/25/18 21:00 Ferritin 33.4 ng/mL 08/25/18 22:58 Total Bilirubin 0.6 mg/dL (0.2-1.3) 09/14/18 09:00 Direct Bilirubin 0.6 mg/dL (0.0-0.4) H 09/02/18 05:30 AST 34 U/L (17-59) 09/14/18 09:00 ALT 26 U/L (7-56) 09/14/18 09:00 Alkaline Phosphatase 209 U/L (38-126) H 09/14/18 09:00 Ammonia 66 umol/L (9-33) H 08/31/18 10:40 Lactate Dehydrogenase 687 U/L (333-699) 09/02/18 05:30 Total Creatine Kinase 124 U/L (35-230) 08/25/18 22:58 Troponin I 0.05 ng/mL 08/30/18 20:50 NT-Pro-B Natriuret Pep 34425 pg/mL (0-450) H 08/25/18 16:40 Total Protein 6.7 g/dL (5.8-8.3) 09/14/18 09:00 Albumin 2.9 g/dL (3.0-4.8) L 09/14/18 09:00 Globulin 3.8 gm/dL 09/14/18 09:00 Albumin/Globulin Ratio 0.8 (1.1-1.8) L 09/14/18 09:00 Triglycerides 81 mg/dL (35-160) 08/25/18 16:40 Cholesterol 102 mg/dL (130-200) L 08/25/18 16:40 LDL Cholesterol Direct 75 mg/dL (0-129) 08/25/18 16:40 HDL Cholesterol 14 mg/dL (29-60) L 08/25/18 16:40 Procalcitonin 0.24 NG/ML (0.19-0.49) 09/01/18 07:40 TSH 3rd Generation 2.41 mIU/mL (0.46-4.68) 08/25/18 21:00 Arterial Blood Potassium 3.8 mmol/L (3.6-5.2) 08/31/18 17:00 Venous Blood Potassium 4.0 mmol/L (3.6-5.2) 08/31/18 20:50 Urine Color Light yellow (YELLOW) 08/25/18 19:30 Urine Appearance Clear (CLEAR) 08/25/18 19:30 Urine pH 6.0 (4.7-8.0) 08/25/18 19:30 Ur Specific [place] 1.020 (1.005-1.035) 08/25/18 19:30 Urine Protein Negative mg/dL (<30 mg/dL) 08/25/18 19:30 Urine Glucose (UA) Negative mg/dL (NEGATIVE) 08/25/18 19:30 Urine Ketones Negative mg/dL (NEGATIVE) 08/25/18 19:30 Urine Blood Trace-lysed (NEGATIVE) H 08/25/18 19:30 Urine Nitrate Negative (NEGATIVE) 08/25/18 19:30 Urine Bilirubin Negative (NEGATIVE) 08/25/18 19:30 Urine Urobilinogen 0.2 E.U./dL (<1 E.U./dL) 08/25/18 19:30 Ur Leukocyte Esterase Negative Rachel/uL (NEGATIVE) 08/25/18 19:30 Urine RBC 0 - 2 /hpf (0-2) 08/25/18 19:30 Urine WBC Negative /hpf (0-6) 08/25/18 19:30 Ur Epithelial Cells 1 - 3 /hpf (0-5) 08/25/18 19:30 Urine Bacteria None (NEG) 08/25/18 19:30 Stool Occult Blood Positive (NEGATIVE) H 08/30/18 05:00 Urine Opiates Screen Negative (NEGATIVE) 08/25/18 19:30 Urine Methadone Screen Negative (NEGATIVE) 08/25/18 19:30 Ur Barbiturates Screen Negative (NEGATIVE) 08/25/18 19:30 Ur Phencyclidine Scrn Negative (NEGATIVE) 08/25/18 19:30 Ur Amphetamines Screen Negative (NEGATIVE) 08/25/18 19:30 U Benzodiazepines Scrn Negative (NEGATIVE) 08/25/18 19:30 U Oth Cocaine Metabols Negative (NEGATIVE) 08/25/18 19:30 U Cannabinoids Screen Negative (NEGATIVE) 08/25/18 19:30 IgG 2158.1 mg/dL (700.0-1600.0) H 08/31/18 10:40 IgM 145.9 mg/dL (40.0-230.0) 08/31/18 10:40 MARITZA Screen Negative (Negative) 08/31/18 10:00 Anti-Mitochondrial Ab Negative (Negative) 08/31/18 10:00 Smooth Muscle Ab Titer TEST NOT PERFORMED 08/31/18 10:00 Anti-Smooth Muscle Ab Negative (Negative) 08/31/18 10:00 Absolute Lymphs (Flow) 1006 Cells/mcL (850-3900) 08/27/18 07:00 % CD4 Cells 36 Percent (30-61) 08/27/18 07:00 Absolute CD4 Count 361 Cells/mcL (490-1740) L 08/27/18 07:00 T-Help/Suppress Ratio 0.93 Ratio (0.86-5.00) 08/27/18 07:00 % CD8 Cells 39 Percent (12-42) 08/27/18 07:00 Absolute CD8 Count 388 Cells/mcL (180-1170) 08/27/18 07:00 Hepatitis A IgM Ab Negative (NEGATIVE) 08/26/18 12:00 Hep Bs Antigen Negative (NEGATIVE) 08/26/18 12:00 Hep B Core IgM Ab Negative (NEGATIVE) 08/26/18 12:00 Hepatitis C Antibody Negative (NEGATIVE) 08/26/18 12:00 HIV-1 Antibody Positive (Negative) H 08/25/18 21:46 HIV-1 RNA Qnt (RT-PCR) 3.33 (Not Detected) H 08/26/18 04:20 HIV-2 Antibody Negative (Negative) 08/25/18 21:46 HIV 1&2 Ag/Ab, 4th Gen Reactive (Nonreactive) H 08/25/18 21:46 Blood Type A POSITIVE 09/05/18 14:30 Antibody Screen Negative 09/05/18 14:30 ANTONIO, Poly Interpret Negative (NEGATIVE) 09/02/18 07:22 Crossmatch See Detail 09/05/18 14:30 BBK History Checked Patient has bt 09/05/18 14:30 - Hospital Course Hospital Course: Upon admission, this is a 53 year old male with a past medical history of COPD, DM2, HTN, HLD, CHF, CAD w/ stent, lumbar radiculopathy, gout who was brought in by EMS for shortness of breath. Patient arrived with respiratory difficulty and could not provide history. Patient reported he has not taken his medications for some time now. Patient could only remember Lasix, which patient denies taking for "some time now." Patient reports that this afternoon, patient fell out of his bed en route to the bathroom. Patient's mother at bedside and she reports the last known time of contact with patient was at least 3 days ago, and no one has checked or seen the patient since then. Patient reports that he remained on the floor unable to get up. Mother found patient on floor of bathroom. Patient endorses similar events has occurred frequently in the recent past but patient refused to come to Emergency Department at those times. Patient arrived to ER short of breath and unable to provide review of systems due to altered mental status. During hospital course, noted to vomit coffee ground emesis and was transferred to the ICU for management for low hemoglobin of 5.6. He was transferred a total of 15 units PRBC, 2 units FFP and 1 unit platelet with hemoglobin stabilizing to 7-8. Abdominal US howed patent portal vein, trace ascites. Bleeding scan 09/02 showed GI hemorrhage in likely in stomach with migration through duodenum and prox small bowel. Abd/pelvis CT shows minimal ascites, unremarkable gallbladder, no overt hepatic cirrhotic pattern. Initial EGD showed esophageal, duodenal and gastric ulcers, with coffee-ground emesis vs blood found in antrum. Moderate portal HTN gastropathy. Repeat EGD 09/02 showed clotted blood in gastric fundus and body as well as oozing hemorrhagic duodenal ulcer where a hemostatic clip was placed. Gen Surg consulted - no indication for surgical intervention at this time. Colonoscopy showed 5 mm sessile polyp which was removed, diverticula, internal hemorrhoids. P.T. recommended patient go to [facility] for rehab and further therapy but patient refused. Patient desires to go home. Patient educated on benefits of [facility] and patient acknowledged understanding but continues to want to go home. Patient agrees with discharge. All of patient's questions were answered. Discharge Exam - Additional Findings Additional findings: - Constitutional Appears: Non-toxic, No Acute Distress - Head Exam Head Exam: ATRAUMATIC, NORMAL INSPECTION, NORMOCEPHALIC - ENT Exam ENT Exam: Mucous Membranes Moist, Normal Exam - Respiratory Exam Respiratory Exam: Clear to Ausculation Bilateral, NORMAL BREATHING PATTERN. absent: Rales, Rhonchi, Wheezes - Cardiovascular Exam Cardiovascular Exam: RRR, +S1, +S2 - GI/Abdominal Exam GI & Abdominal Exam: Soft, Normal Bowel Sounds. Globular abdomen. absent: Tenderness - Neurological Exam Neurological Exam: Alert, Awake, Oriented x3 - Psychiatric Exam Psychiatric exam: Normal Affect, Normal Mood - Skin Skin Exam: Dry, Intact, Warm Discharge Plan - Discharge Medications Prescriptions: Aspirin [Adult Aspirin] 81 mg PO DAILY #30 tablet. Atorvastatin [Lipitor] 20 mg PO DAILY #30 tab RX: Calcium/Chloride/Magnesium [Slow-Mag] 64 mg PO DAILY #30 ect RX: Carvedilol [Coreg] 12.5 mg PO BID #28 tab Docusate Sodium [Colace] 100 mg PO DAILY #14 capsule Docusate Sodium [Colace] 100 mg PO BID 14 Days #28 capsule RX: Ferrous Sulfate 325 mg PO DAILY #30 tablet RX: Furosemide [Lasix] 40 mg PO DAILY #30 tab RX: Losartan [Cozaar] 25 mg PO DAILY #14 tab RX: MetFORMIN [glucoPHAGE] 500 mg PO BID #28 tab RX: Pantoprazole [Protonix EC Tab] 40 mg PO 0600 #30 ect RX: Potassium Chloride [K-Dur 20 mEq ER Tab] 20 meq PO BRK 30 Days tab - Follow Up Plan Condition: GUARDED Disposition: HOME/ ROUTINE Instructions: Heart Failure, Adult (DC), Gastrointestinal Bleeding (DC) Additional Instructions: Please follow up with your primary care doctor within 3-5 days of discharge, Dr. Arenas Please follow up with your quality coordinator, Dr. Rodríugez within 3-5 days of discharge. Please follow up with your vibration engineer within 3-5 days of discharge, Dr. Larsen. Please follow up with an infectious disease doctor within 5-7 days of discharge. You will need to see a HIV specialist of your choice. Please take the following medications: 1) protonix 40mg daily, 30 minutes before breakfast for stomach 2) coreg 12.5mg twice a day for blood pressure 3) lasix 40mg daily for your heart health 4) cozaar 25mg daily for blood pressure 5) Potassium chloride 20mEQ daily for electryles 6) Calcium/chloride/magnesium 64mg daily for bone health 7) metformin 500mg BID for diabetes 8) aspirin 81mg daily for heart health 9) lipitor 20mg daily for cholesterol 10) ferrous sulfate daily for iron 11) colace twice daily for constipation Please get refills from your primary care doctor Please return to the ED for any new or worsening symptoms. Referrals: Yoni Arenas MD [Primary Care Provider] - Cyril Larsen MD [Medical Doctor] - <Sonu Danielle - Last Filed: 09/16/18 08:49> Provider - Provider Date of Admission: 08/25/18 17:47 Attending physician: Kavon Santana MD Primary care physician: Yoni Arenas MD Consults: 08/25/18 19:56 Cardiology Consult Routine Comment: Consulting Provider: Beny Salgado Consulting Physician: Beny Salgado Reason for Consult: HFrEF, ? CHF exacerbation, borderline trop 08/27/18 12:52 Psychiatry Consult Routine Comment: severe agitation Consulting Provider: Yevgeniy Burris Consulting Physician: Yevgeniy Burris Reason for Consult: severe agitation and disruptions such as pulling out lines 08/28/18 14:24 Physician Consult Routine Comment: HIV status and recommendations Consulting Provider: Jaden Groves Consulting Physician: Jaden Groves Reason for Consult: HIV status and recommendations 08/30/18 10:08 Gastroenterology Consult Routine Comment: Consulting Provider: Cyril Larsen V Consulting Physician: Cyril Larsen V Reason for Consult: + occult stool, Hg now 5.6 08/30/18 15:17 Pulmonology Consult Routine Comment: Consulting Provider: Dago Eduardo Consulting Physician: Dago Eduardo Reason for Consult: severe anemia, HFrEF, Hgb 5.4 08/30/18 18:51 Physician Consult Routine Comment: 5 system failing, melena, hgb 5.4 Dr. Suzie disla Consulting Provider: Randall Mcwilliams Consulting Physician: Randall Mcwilliams Reason for Consult: eval for unit Patient has melena hgb 5.4, system failure Additional Comments: eval for unit Please call Dr. Larsen 08/31/18 08:00 Consult [Physician Consult] Routine Comment: Consulting Provider: Bruce Vizcarra Consulting Physician: Bruce Vizcarra Reason for Consult: upper gi bleed 09/05/18 12:34 Physician Consult Routine Comment: Consulting Provider: Louis Ramirez Consulting Physician: Louis Ramirez Reason for Consult: possible embolization for GI bleed Hospital Course - Lab Results Lab Results: Micro Results 08/31/18 17:30 Blood Blood Culture - Final NO GROWTH AFTER 5 DAYS 08/31/18 17:30 Blood Gram Stain - Final TEST NOT PERFORMED 08/31/18 17:00 Blood Blood Culture - Final NO GROWTH AFTER 5 DAYS 08/31/18 17:00 Blood Gram Stain - Final TEST NOT PERFORMED 08/30/18 21:47 Nose MRSA Culture (Admit) - Final MRSA NOT DETECTED 08/25/18 17:30 Blood-Venous Blood Culture - Final NO GROWTH AFTER 5 DAYS 08/25/18 17:30 Blood-Venous Gram Stain - Final TEST NOT PERFORMED 08/25/18 16:40 Blood-Venous Blood Culture - Final NO GROWTH AFTER 5 DAYS 08/25/18 16:40 Blood-Venous Gram Stain - Final TEST NOT PERFORMED 08/25/18 19:30 Urine Urine Culture - Final Most Recent Lab Values WBC 5.4 10^3/uL (4.5-11.0) 09/14/18 09:00 RBC 2.74 10^6/uL (3.5-6.1) L 09/14/18 09:00 Hgb 7.8 g/dL (14.0-18.0) L 09/14/18 12:50 Hct 24.9 % (42.0-52.0) L 09/14/18 12:50 MCV 86.5 fl (80.0-105.0) 09/14/18 09:00 MCH 27.4 pg (25.0-35.0) 09/14/18 09:00 MCHC 31.6 g/dl (31.0-37.0) 09/14/18 09:00 RDW 18.0 % (11.5-14.5) H 09/14/18 09:00 Plt Count 216 10^3/uL (120.0-450.0) 09/14/18 09:00 MPV 9.1 fl (7.0-11.0) 09/14/18 09:00 Gran % 49.7 % (50.0-68.0) L 09/14/18 09:00 Lymph % (Auto) 37.2 % (22.0-35.0) H 09/14/18 09:00 [place] % (Auto) 11.0 % (1.0-6.0) H 09/14/18 09:00 Eos % (Auto) 1.9 % (1.5-5.0) 09/14/18 09:00 Baso % (Auto) 0.2 % (0.0-3.0) 09/14/18 09:00 Gran # 2.68 (1.4-6.5) 09/14/18 09:00 Lymph # (Auto) 2.0 (1.2-3.4) 09/14/18 09:00 [place] # (Auto) 0.6 (0.1-0.6) 09/14/18 09:00 Eos # (Auto) 0.1 (0.0-0.7) 09/14/18 09:00 Baso # (Auto) 0.01 K/mm3 (0.0-2.0) 09/14/18 09:00 Corrected WBC (Man) 9.5 K/mm3 (4.5-11.0) 08/26/18 07:00 Neutrophils % (Manual) 85 % (50.0-70.0) H 08/26/18 07:00 Lymphocytes % (Manual) 10 % (22.0-35.0) L 08/26/18 07:00 Atypical Lymphs % 1 % (0.0-0.0) H 08/26/18 07:00 Monocytes % (Manual) 4 % (1.0-6.0) 08/26/18 07:00 Nucleated RBC % 6 % 08/26/18 07:00 Differential Comment See pathology report 09/02/18 19:00 Large Platelets Present 08/26/18 07:00 Polychromasia Slight 08/26/18 07:00 Hypochromasia 1+ 08/26/18 07:00 Poikilocytosis (manual 1+ 08/26/18 07:00 Anisocytosis (manual) 1+ 12/07/18 07:00 Microcytosis (manual) 1+ 08/26/18 07:00 Target Cells Slight 08/26/18 07:00 Ovalocytes Slight 08/26/18 07:00 Schistocytes Slight 08/26/18 07:00 Retic Count 2.42 % (0.5-1.5) H 09/02/18 05:30 Haptoglobin 56.6 mg/dL (30.0-200.0) 09/02/18 05:00 PT 16.5 SECONDS (9.4-12.5) H 09/12/18 06:30 INR 1.42 09/12/18 06:30 APTT 29.6 Seconds (25.1-36.5) 09/03/18 08:30 pCO2 54 mm/Hg (35-45) H 08/31/18 20:57 pO2 101.0 mm/Hg (80-100) H 08/31/18 20:57 HCO3 38.4 mmol/L (21-28) H 08/31/18 20:57 ABG pH 7.46 (7.35-7.45) H 08/31/18 20:57 ABG Total CO2 40.1 mmol.L (22-28) H 08/31/18 20:57 ABG O2 Saturation 98.6 % (95-98) H 08/31/18 20:57 ABG O2 Content 9.8 ML/dl (15-23) L 08/31/18 20:57 ABG Base Excess 13.2 mmol/L (-2.0-3.0) H 08/31/18 20:57 ABG Hemoglobin 7.1 g/dL (11.7-17.4) L 08/31/18 20:57 ABG Carboxyhemoglobin 1.9 % (0.5-1.5) H 08/31/18 20:57 POC ABG HHb (Measured) 1.4 % (0-5) 08/31/18 20:57 ABG Methemoglobin 0.9 % (0.0-3.0) 08/31/18 20:57 ABG O2 Capacity 9.9 mL/dl (16-24) L 08/31/18 20:57 ABG Potassium 3.8 mmol/L (3.6-5.2) 08/31/18 17:00 VBG pH 7.44 (7.32-7.43) H 08/31/18 20:50 VBG pCO2 57.0 (40-60) 08/31/18 20:50 VBG HCO3 38.7 mmol/l (21-28) H 08/31/18 20:50 VBG Total CO2 40.4 mmol.L (22-28) H 08/31/18 20:50 VBG O2 Sat (Calc) 97.8 % (40-65) H 08/31/18 20:50 VBG Base Excess 12.1 mmol/L (0.0-2.0) H 08/31/18 20:50 VBG Potassium 4.0 mmol/L (3.6-5.2) 08/31/18 20:50 Hgb O2 Saturation 95.8 % (95.0-98.0) 08/31/18 20:57 Sodium 152.0 mmol/L (132-148) H 08/31/18 20:50 Chloride 110.0 mmol/L (98-107) H 08/31/18 20:50 Glucose 183 mg/dl (75-110) H 08/31/18 20:50 Lactate 3.9 mmol/L (0.7-2.1) H 08/31/18 20:50 Mechanical Rate 16 08/31/18 17:00 FiO2 30.0 % 08/31/18 20:57 Tidal Volume 500 08/31/18 17:00 PEEP 5 08/31/18 17:00 Sodium 133 mmol/L (132-148) 09/14/18 09:00 Potassium 3.8 mmol/L (3.6-5.0) 09/14/18 09:00 Chloride 101 mmol/L (98-107) 09/14/18 09:00 Carbon Dioxide 28 mmol/L (21-33) 09/14/18 09:00 Anion Gap 8 (10-20) L 09/14/18 09:00 BUN 16 mg/dL (7-21) 09/14/18 09:00 Creatinine 0.8 mg/dl (0.8-1.5) 09/14/18 09:00 Est GFR ( Amer) > 60 09/14/18 09:00 Est GFR (Non-Af Amer) > 60 09/14/18 09:00 POC Glucose (mg/dL) 81 mg/dL (65-110) 09/15/18 11:39 Random Glucose 170 mg/dL (70-110) H 09/14/18 09:00 Hemoglobin A1c 6.9 % (4.2-6.5) H 08/26/18 10:42 Lactic Acid 2.5 mmol/L (0.7-2.1) H 08/31/18 10:40 Calcium 8.0 mg/dL (8.4-10.5) L 09/14/18 09:00 Phosphorus 3.0 mg/dL (2.5-4.5) 09/13/18 06:00 Magnesium 1.6 mg/dL (1.7-2.2) L 09/13/18 06:00 Iron 40 ug/dL (45-180) L 08/25/18 21:00 TIBC 415 ug/dL (261-462) 08/25/18 21:00 % Saturation 10 % (20-55) L 08/25/18 21:00 Ferritin 33.4 ng/mL 08/25/18 22:58 Total Bilirubin 0.6 mg/dL (0.2-1.3) 09/14/18 09:00 Direct Bilirubin 0.6 mg/dL (0.0-0.4) H 09/02/18 05:30 AST 34 U/L (17-59) 09/14/18 09:00 ALT 26 U/L (7-56) 09/14/18 09:00 Alkaline Phosphatase 209 U/L (38-126) H 09/14/18 09:00 Ammonia 66 umol/L (9-33) H 08/31/18 10:40 Lactate Dehydrogenase 687 U/L (333-699) 09/02/18 05:30 Total Creatine Kinase 124 U/L (35-230) 08/25/18 22:58 Troponin I 0.05 ng/mL 08/30/18 20:50 NT-Pro-B Natriuret Pep 11645 pg/mL (0-450) H 08/25/18 16:40 Total Protein 6.7 g/dL (5.8-8.3) 09/14/18 09:00 Albumin 2.9 g/dL (3.0-4.8) L 09/14/18 09:00 Globulin 3.8 gm/dL 09/14/18 09:00 Albumin/Globulin Ratio 0.8 (1.1-1.8) L 09/14/18 09:00 Triglycerides 81 mg/dL (35-160) 08/25/18 16:40 Cholesterol 102 mg/dL (130-200) L 08/25/18 16:40 LDL Cholesterol Direct 75 mg/dL (0-129) 08/25/18 16:40 HDL Cholesterol 14 mg/dL (29-60) L 08/25/18 16:40 Procalcitonin 0.24 NG/ML (0.19-0.49) 09/01/18 07:40 TSH 3rd Generation 2.41 mIU/mL (0.46-4.68) 08/25/18 21:00 Arterial Blood Potassium 3.8 mmol/L (3.6-5.2) 08/31/18 17:00 Venous Blood Potassium 4.0 mmol/L (3.6-5.2) 08/31/18 20:50 Urine Color Light yellow (YELLOW) 08/25/18 19:30 Urine Appearance Clear (CLEAR) 08/25/18 19:30 Urine pH 6.0 (4.7-8.0) 08/25/18 19:30 Ur Specific [place] 1.020 (1.005-1.035) 08/25/18 19:30 Urine Protein Negative mg/dL (<30 mg/dL) 08/25/18 19:30 Urine Glucose (UA) Negative mg/dL (NEGATIVE) 08/25/18 19:30 Urine Ketones Negative mg/dL (NEGATIVE) 08/25/18 19:30 Urine Blood Trace-lysed (NEGATIVE) H 08/25/18 19:30 Urine Nitrate Negative (NEGATIVE) 08/25/18 19:30 Urine Bilirubin Negative (NEGATIVE) 08/25/18 19:30 Urine Urobilinogen 0.2 E.U./dL (<1 E.U./dL) 08/25/18 19:30 Ur Leukocyte Esterase Negative Rachel/uL (NEGATIVE) 08/25/18 19:30 Urine RBC 0 - 2 /hpf (0-2) 08/25/18 19:30 Urine WBC Negative /hpf (0-6) 08/25/18 19:30 Ur Epithelial Cells 1 - 3 /hpf (0-5) 08/25/18 19:30 Urine Bacteria None (NEG) 08/25/18 19:30 Stool Occult Blood Positive (NEGATIVE) H 08/30/18 05:00 Urine Opiates Screen Negative (NEGATIVE) 08/25/18 19:30 Urine Methadone Screen Negative (NEGATIVE) 08/25/18 19:30 Ur Barbiturates Screen Negative (NEGATIVE) 08/25/18 19:30 Ur Phencyclidine Scrn Negative (NEGATIVE) 08/25/18 19:30 Ur Amphetamines Screen Negative (NEGATIVE) 08/25/18 19:30 U Benzodiazepines Scrn Negative (NEGATIVE) 08/25/18 19:30 U Oth Cocaine Metabols Negative (NEGATIVE) 08/25/18 19:30 U Cannabinoids Screen Negative (NEGATIVE) 08/25/18 19:30 IgG 2158.1 mg/dL (700.0-1600.0) H 08/31/18 10:40 IgM 145.9 mg/dL (40.0-230.0) 08/31/18 10:40 MARITZA Screen Negative (Negative) 08/31/18 10:00 Anti-Mitochondrial Ab Negative (Negative) 08/31/18 10:00 Smooth Muscle Ab Titer TEST NOT PERFORMED 08/31/18 10:00 Anti-Smooth Muscle Ab Negative (Negative) 08/31/18 10:00 Absolute Lymphs (Flow) 1006 Cells/mcL (850-3900) 08/27/18 07:00 % CD4 Cells 36 Percent (30-61) 08/27/18 07:00 Absolute CD4 Count 361 Cells/mcL (490-1740) L 08/27/18 07:00 T-Help/Suppress Ratio 0.93 Ratio (0.86-5.00) 08/27/18 07:00 % CD8 Cells 39 Percent (12-42) 08/27/18 07:00 Absolute CD8 Count 388 Cells/mcL (180-1170) 08/27/18 07:00 Hepatitis A IgM Ab Negative (NEGATIVE) 08/26/18 12:00 Hep Bs Antigen Negative (NEGATIVE) 08/26/18 12:00 Hep B Core IgM Ab Negative (NEGATIVE) 08/26/18 12:00 Hepatitis C Antibody Negative (NEGATIVE) 08/26/18 12:00 HIV-1 Antibody Positive (Negative) H 08/25/18 21:46 HIV-1 RNA Qnt (RT-PCR) 3.33 (Not Detected) H 08/26/18 04:20 HIV-2 Antibody Negative (Negative) 08/25/18 21:46 HIV 1&2 Ag/Ab, 4th Gen Reactive (Nonreactive) H 08/25/18 21:46 Blood Type A POSITIVE 09/14/18 13:45 Antibody Screen Negative 09/14/18 13:45 ANTONIO, Poly Interpret Negative (NEGATIVE) 09/02/18 07:22 Crossmatch See Detail 09/14/18 13:45 BBK History Checked Patient has bt 09/14/18 13:45 Attending/Attestation - Attestation I have personally seen and examined this patient.: Yes I have fully participated in the care of the patient.: Yes I have reviewed all pertinent clinical information, including history, physical exam and plan: Yes Notes (Text): 09/16/18 08:48 Medical record note made by the resident after discussion with my direction and input after the patient was personally seen and examined by me. I have reviewed the chart and agree that the record accurately reflects by personal performance of the history, physical exam, data review, and medical decision-making, in the course for the patient. I have also personally directed the plan of care. 53 year old male with past medical history of HIV not on HAART, COPD, CAD, CHF, and diabetes who initially presented with shortness of breath, treated for CHF exacerbation. Hospital course was complicated with acute blood loss anemia requiring multiple PRBC transfusions. Bleeding scan 09/02 showed GI hemorrhage in likely in stomach with migration through duodenum and prox small bowel EGD showed esophageal, duodenal and gastric ulcers with moderate portal hypertensive gastropathy. Repeat EGD showed clotted blood in gastric fundus and body with oozing hemorrhagic duodenal ulcer with hemostatic clip placement. Colonoscopy showing Condyloma and internal hemorrhoids Hemoglobin is stable, Patient is on PPI and Iron supplement. Aspirin was restarted prior to discharge as recommended by GI. Patient is asymptometic and is ambulatory at the time of discharge. Patient is s/p antibiotics for HCAP. CHF with systolic dysfunction .Patient is euvolemic on oral lasix, coreg and cozaar Patient will follow up with his ID Physcian to start ENCARNACION therapy as out patient. Prognosis is guarded due to non compliance. Management plan was discussed in detail with patient. Education was provided.
[2018-09-14 19:38] VITALS: RESP 20
[2018-09-15] MEDS: Pantoprazole 40 mg EC Tab PO SCH (05:50)
[2018-09-15] MEDS: Insulin Lispro (HUMAlog) HIGH Coverage SC SCH ×2 (06:18)
[2018-09-15 08:39] VITALS: TEMP 98.1; O2SAT 97
[2018-09-15 13:13] VITALS: BP 142/92; PULSE 92
--- NOTE | 2018-09-15 13:36 | CP.PCM.PN ---
<Rc Wong - Last Filed: 09/15/18 13:36> Subjective - Date & Time of Evaluation Date of Evaluation: 09/15/18 Time of Evaluation: 10:21 - Subjective Subjective: Rc Wong PGY1 Hospital Progress Note Patient seen and examined at bedside this morning. No acute events reported overnight. Offers no complaints today. Plan for discharge today. Delayed fro yesterday due to not having apartment keys. Objective - Vital Signs/Intake and Output Vital Signs (last 24 hours): Temp Pulse Resp BP Pulse Ox 98.1 F 92 H 20 142/92 H 97 09/15/18 08:38 09/15/18 13:11 09/15/18 08:38 09/15/18 13:11 09/15/18 08:38 Intake and Output: 09/15/18 09/15/18 06:59 18:59 Intake Total 865 Output Total 3200 Balance -2335 - Labs Labs: 09/14/18 12:50 09/14/18 09:00 PT 16.5 SECONDS (9.4-12.5) H 09/12/18 06:30 INR 1.42 09/12/18 06:30 APTT 29.6 Seconds (25.1-36.5) 09/03/18 08:30 - Constitutional Appears: No Acute Distress - Head Exam Head Exam: ATRAUMATIC, NORMAL INSPECTION - Eye Exam Eye Exam: EOMI Pupil Exam: PERRL - ENT Exam ENT Exam: Mucous Membranes Moist - Neck Exam Neck Exam: Normal Inspection - Respiratory Exam Respiratory Exam: Clear to Ausculation Bilateral. absent: Accessory Muscle Use, Wheezes, Respiratory Distress - Cardiovascular Exam Cardiovascular Exam: REGULAR RHYTHM, +S1, +S2 - GI/Abdominal Exam GI & Abdominal Exam: Soft, Normal Bowel Sounds. absent: Firm, Guarding, Tenderness - Extremities Exam Extremities Exam: Normal Inspection. absent: Calf Tenderness, Pedal Edema, Tenderness Additional comments: dry - Back Exam Back Exam: NORMAL INSPECTION - Neurological Exam Neurological Exam: Alert, CN II-XII Intact, Oriented x3 - Skin Skin Exam: Dry, Normal Color Assessment and Plan - Assessment and Plan (Free Text) Assessment: 53 year old male with past medical history of HIV not on HAART, COPD, DM type 2, HTN, HLD, systolic CHF with EF of 39%, CAD s/p stent placement, lumbar radiculopathy, and gout presented with CHF exacerbation complicated by Upper GI bleed. Patient recommended for STEPHANIE by Physical Therapy, patient would like to go home with services. Patient being discharged today Normocytic Anemia - s/p total of 15 units of pRBCs, 2 FFPs, 1 Plts - hemoglobin is stable - Endoscopy previously showed gastritis and nonbleeding duodenal ulcers, portal gastropathy along with gastric clip - Colonoscopy showing Condyloma and internal hemorrhoids - Bleeding scan 09/02 showed GI hemorrhage in likely in stomach with migration through duodenum and prox small bowel. - per gen surg, no intervention Dyspnea - Lasix - Cozaar - Coreg - completed course of antibiotics for pneumonia Hx of DM - ISS Humalog high, monitor glucose Hx of HTN - Losartan - Lasix - Coreg Hx of HLD - Continue with Lipitor HIV - HIV antibody reactive with 3.33 on PCR with CD4 count 361 - patient agreed to follow up outpatient HIV clinic PPX - Protonix - SCDs Patient seen and case discussed with attending, Dr. Danielle <Sonu Danielle - Last Filed: 09/16/18 08:48> Objective - Vital Signs/Intake and Output Vital Signs (last 24 hours): Temp Pulse Resp BP Pulse Ox 98.1 F 92 H 20 142/92 H 97 09/15/18 08:38 09/15/18 13:11 09/15/18 08:38 09/15/18 13:11 09/15/18 08:38 - Labs Labs: 09/14/18 12:50 09/14/18 09:00 PT 16.5 SECONDS (9.4-12.5) H 09/12/18 06:30 INR 1.42 09/12/18 06:30 APTT 29.6 Seconds (25.1-36.5) 09/03/18 08:30 Attending/Attestation - Attestation I have personally seen and examined this patient.: Yes I have fully participated in the care of the patient.: Yes I have reviewed all pertinent clinical information, including history, physical exam and plan: Yes Notes (Text): 09/16/18 08:43 Medical record note made by the resident after discussion with my direction and input after the patient was personally seen and examined by me. I have reviewed the chart and agree that the record accurately reflects by personal performance of the history, physical exam, data review, and medical decision-making, in the course for the patient. I have also personally directed the plan of care. 53 year old male with past medical history of HIV not on HAART, COPD, CAD, CHF, and diabetes who initially presented with shortness of breath, treated for CHF e xacerbation. Hospital course was complicated with acute blood loss anemia requiring multiple PRBC transfusions. Bleeding scan 09/02 showed GI hemorrhage in likely in stomach with migration through duodenum and prox small bowel EGD showed esophageal, duodenal and gastric ulcers with moderate portal hypertensive gastropathy. Repeat EGD showed clotted blood in gastric fundus and body with oozing hemorrhagic duodenal ulcer with hemostatic clip placement. Colonoscopy showing Condyloma and internal hemorrhoids Hemoglobin is stable, Patient is on PPI and Iron supplement. Patient is asymptometic and is ambulatory at the time of discharge. Patient is s/p antibiotics for HCAP. CHF with systolic dysfunction .Patient is euvolemic on oral lasix, coreg and cozaar Patient will follow up with his ID Beartiz to start ENCARNACION therapy as out patient. Prognosis is guarded due to non compliance. Management plan was discussed in detail with patient. Education was provided. 09/16/18 08:47
--- NOTE | 2018-09-16 08:18 | PN ---
DATE: 09/15/2018 SUBJECTIVE: This patient was seen and evaluated earlier today. The patient was comfortable, tolerating the diet, wants to go home. PHYSICAL EXAMINATION: VITAL SIGNS: Temperature is 98.1, blood pressure 110/71, respirations 20. HEENT: Atraumatic. Anicteric. NECK: Supple. HEART: S1, S2 heard. LUNGS: Bilateral air entry present. ABDOMEN: Soft. No tenderness. LABORATORY DATA: Hemoglobin 7.8, hematocrit 24.9, WBC 5.4, platelets 216. IMPRESSION: This 53-year-old patient who is human immunodeficiency virus? positive, admitted with massive gastrointestinal bleeding. The patient was transfused nearly 15 units of packed red blood cells and two units of fresh frozen plasma. The patient was found to have multiple ulcers. The patient did have an esophageal ulcer, gastric and duodenal ulcer. The patient had multiple endoscopies done and the patient had visible vessel with active bleeding, which was clipped. The patient recently had an upper gastrointestinal endoscopy done and biopsies done to further evaluate the extensive ulcerations in the duodenum. The duodenal bulb biopsy shows intact mucosa, no active inflammatory changes. Gastric ulcer biopsy margins also did not show any Helicobacter pylori. No ulceration. The patient also had a colonoscopy, found to have a small rectal polyp, which was removed, a hyperplastic polyp. The patient was also noted to have hemorrhoids with anal papilloma. RECOMMENDATIONS: 1. Close follow up of the hemoglobin and hematocrit. 2. Follow up with the primary physician for repeat blood count. 3. Iron supplements and vitamin supplements. 4. He is advised to continue the PPI. 5. He is advised to follow up with ID for management of the HIV. 6. The patient has anal papilloma. This was discussed with the patient at length postprocedure and also at multiple occasions. Need to be followed with ID regarding management of papilloma, may benefit from surgical follow up also, we will continue to do closely. The patient needs follow up endoscopy in about six to eight weeks time to evaluate healing of the ulcer. Discussed with the patient in the presence of the nurses and documented the compliance and importance of the follow up as advised. I have also discussed with the medical team regarding this patient earlier. Cyril Larsen MD [facility] # [id number]
== END 2018-09-15 13:24 | disposition home or self-care (01) | DRG 544 ==
LOC: ED 16:21 → ERH 17:47 → 2RNO 22:24 → CCU 08-30 21:17 → ICU 09-04 00:30 → 3RNO 09-08 22:05
PROVIDERS: ADMIT Internal Medicine; ATTEND Internal Medicine
PROC: 30233N1 Transfusion of Nonautologous Red Blood Cells into Peripheral Vein, Percutaneous Approach (ICD-10-PCS; 2018-08-30)
PROC: 0DJ08ZZ Inspection of Upper Intestinal Tract, Via Natural or Artificial Opening Endoscopic (ICD-10-PCS; 2018-08-31)
PROC: 30233K1 Transfusion of Nonautologous Frozen Plasma into Peripheral Vein, Percutaneous Approach (ICD-10-PCS; 2018-09-02)
PROC: 0W3P8ZZ Control Bleeding in Gastrointestinal Tract, Via Natural or Artificial Opening Endoscopic (ICD-10-PCS; principal; 2018-09-02 14:00)
PROC: 0DJ08ZZ Inspection of Upper Intestinal Tract, Via Natural or Artificial Opening Endoscopic (ICD-10-PCS; 2018-09-02 14:00)
PROC: 6A550Z2 Pheresis of Platelets, Single (ICD-10-PCS; 2018-09-03)
PROC: 0DJ08ZZ Inspection of Upper Intestinal Tract, Via Natural or Artificial Opening Endoscopic (ICD-10-PCS; 2018-09-05)
PROC: 0DB98ZX Excision of Duodenum, Via Natural or Artificial Opening Endoscopic, Diagnostic (ICD-10-PCS; 2018-09-12)
PROC: 0DB68ZX Excision of Stomach, Via Natural or Artificial Opening Endoscopic, Diagnostic (ICD-10-PCS; 2018-09-12)
PROC: 0DBP8ZZ Excision of Rectum, Via Natural or Artificial Opening Endoscopic (ICD-10-PCS; 2018-09-12)
DX: I11.0 Hypertensive heart disease with heart failure (principal); J18.9 Pneumonia, unspecified organism; K26.4 Chronic or unspecified duodenal ulcer with hemorrhage; K72.90 Hepatic failure, unspecified without coma; N17.9 Acute kidney failure, unspecified; J44.1 Chronic obstructive pulmonary disease with (acute) exacerbation; J44.0 Chronic obstructive pulmonary disease with (acute) lower respiratory infection; D62 Acute posthemorrhagic anemia; D69.6 Thrombocytopenia, unspecified; E11.65 Type 2 diabetes mellitus with hyperglycemia; E87.2 Acidosis; E87.6 Hypokalemia; I42.9 Cardiomyopathy, unspecified; K74.60 Unspecified cirrhosis of liver; R09.02 Hypoxemia; E86.0 Dehydration; I50.23 Acute on chronic systolic (congestive) heart failure; A63.0 Anogenital (venereal) warts; E66.9 Obesity, unspecified; E78.00 Pure hypercholesterolemia, unspecified; E78.5 Hyperlipidemia, unspecified; E83.39 Other disorders of phosphorus metabolism; F17.210 Nicotine dependence, cigarettes, uncomplicated; G47.33 Obstructive sleep apnea (adult) (pediatric); I16.0 Hypertensive urgency; I25.10 Atherosclerotic heart disease of native coronary artery without angina pectoris; I50.82 Biventricular heart failure; I27.20 Pulmonary hypertension, unspecified; I47.1 Supraventricular tachycardia; K21.9 Gastro-esophageal reflux disease without esophagitis; K22.10 Ulcer of esophagus without bleeding; K25.9 Gastric ulcer, unspecified as acute or chronic, without hemorrhage or perforation; K29.00 Acute gastritis without bleeding; K31.89 Other diseases of stomach and duodenum; K57.30 Diverticulosis of large intestine without perforation or abscess without bleeding; K59.00 Constipation, unspecified; K62.1 Rectal polyp; K64.8 Other hemorrhoids; K76.6 Portal hypertension; W06.XXXA Fall from bed, initial encounter; Y92.003 Bedroom of unspecified non-institutional (private) residence as the place of occurrence of the external cause; Y95 Nosocomial condition; Z21 Asymptomatic human immunodeficiency virus [HIV] infection status; Z68.34 Body mass index [BMI] 34.0-34.9, adult; Z78.1 Physical restraint status; Z91.14 Patient's other noncompliance with medication regimen; Z91.19 Patient's noncompliance with other medical treatment and regimen; Z95.5 Presence of coronary angioplasty implant and graft; Z53.8 Procedure and treatment not carried out for other reasons; I85.00 Esophageal varices without bleeding; M54.16 Radiculopathy, lumbar region; M10.9 Gout, unspecified